=== PATIENT | male | born 1945 | race Caucasian/White ===

== ENCOUNTER 2019-10-19 10:57 | Outpatient (CLI) | payer MEDICARE, SELFPAY ==
--- NOTE | ~2019-10-19 | XR_ITS ---
EXAMINATION: XR cervical spine 4-5V DATE: 10/19/2019 11:19 INDICATION: Cervical radiculopathy. TECHNIQUE: 4 views of cervical spine were obtained. COMPARISON: None. FINDINGS: There is 5 degrees dextrocurvature of cervical spine. There is 2 mm retrolisthesis of C6 on C7. There is kyphosis of cervical spine. Vertebral body heights are normal. There is mildly decrease d disc height at C4-C5, moderately decreased disc height at C5-6, and severely decreased disc height at C6-C7. There is multilevel facet joint osteoarthritis, severe on the right at C3-C4 and C5-C6 and on the left at C4-C5. There is multilevel uncovertebral joint osteoarthritis, severe bilaterally at C 5-C6 on the left at C6-C7. There is developmental osseous central canal stenosis from C2 to C6. No pr evertebral soft tissue swelling. IMPRESSION: 1. Severe cervical spondylosis. Reviewed, dictated and finalized at location A.
--- NOTE | ~2019-10-19 | XR_ITS ---
EXAMINATION: XR shoulder RT min 2V DATE: 10/19/2019 11:19 INDICATION: Right shoulder pain. TECHNIQUE: 4 views of right shoulder were obtained. COMPARISON: None. FINDINGS: Bone alignment is normal. No fracture. There is mild osteoarthritis of glenohumeral joint a nd moderate osteoarthritis of the acromioclavicular joint. Median sternotomy wires and mediastinal tran rgical clips are seen, likely from prior coronary artery bypass grafting. IMPRESSION: 1. Polyarticular osteoarthritis. Reviewed, dictated and finalized at location A.
== END 2019-10-19 10:58 | disposition home or self-care (01) ==
LOC: ANHIMG 11:02
PROVIDERS: PCP Internal Medicine; Visit Provider Physician Assistant
DX: M54.12 Radiculopathy, cervical region (principal); M25.511 Pain in right shoulder
CPT/HCPCS: 72050; 73030

== ENCOUNTER 2019-10-26 17:42 | Outpatient (CLI) | payer MEDICARE, SELFPAY ==
--- NOTE | ~2019-10-26 | XR_ITS ---
EXAMINATION: XR wrist RT min 3V INDICATION: Right wrist pain TECHNIQUE: Four views of the right wrist are obtained. COMPARISON: None available FINDINGS: There is no fracture, dislocation, or subluxation. Advanced osteoarthritis is noted at the first carpometacarpal joint. Calcified atherosclerosis is noted. IMPRESSION: 1. No acute osseous abnormality. Reviewed, dictated and finalized at location A.
--- NOTE | ~2019-10-26 | XR_ITS ---
EXAMINATION: XR forearm RT 2V INDICATION: Right forearm pain TECHNIQUE: Two views of the right forearm are obtained. COMPARISON: None available FINDINGS: There is no fracture, dislocation, or subluxation. There appears to be dorsal soft tissue s welling overlying the mid forearm. Bone alignment at the wrist and elbow is normal. Osteoarthritis is noted at the first carpometacarpal joint. IMPRESSION: 1. No acute osseous abnormality. Reviewed, dictated and finalized at location A.
--- NOTE | ~2019-10-26 | XR_ITS ---
EXAMINATION: XR hand RT min 3V INDICATION: Right hand swelling TECHNIQUE: Three views of the right hand are obtained. COMPARISON: None available FINDINGS: There is advanced osteoarthritis at the first carpometacarpal joint. Moderate osteoarthriti s is noted at the first through third metacarpophalangeal joints. There is mild osteoarthritis at the fourth metacarpophalangeal joint as well as in multiple interphalangeal joints. No fracture is ident ified. Calcified atherosclerosis is noted. IMPRESSION: 1. Polyarticular osteoarthritis without acute abnormality. Reviewed, dictated and finalized at location A.
== END 2019-10-26 17:43 | disposition home or self-care (01) ==
PROVIDERS: PCP Internal Medicine; Visit Provider Nurse Practitioner Family
DX: M25.531 Pain in right wrist (principal); R22.31 Localized swelling, mass and lump, right upper limb; M79.641 Pain in right hand; M19.041 Primary osteoarthritis, right hand
CPT/HCPCS: 73090; 73110; 73130

== ENCOUNTER → 2019-12-15 10:49 | Outpatient (CLI) | payer MEDICARE, SELFPAY ==
--- NOTE | ~2019-12-15 | MR_ITS ---
EXAMINATION: MR wrist RT wo con DATE: 12/15/2019 11:56 INDICATION: Right wrist pain TECHNIQUE: Magnetic resonance imaging (MRI) of the right wrist was performed without intravenous cont rast. Sequences performed include axial PD-weighted FSE and PD-weighted FS FSE, coronal PD-weighted F S FSE and T1-weighted SE, and sagittal PD-weighted FS FSE and PD-weighted FSE. COMPARISON: None FINDINGS: Intrinsic ligaments: There are tears of the dorsal and central membranous components of the scapholunate ligament. The vol ar component. Intermittent grossly intact. The lunotriquetral ligament appears intact. Triangular fibrocartilage complex (TFCC): Tear of the ulnar styloid attachment of the triangular fibrocartilage complex with partial tears of t he central articular cartilaginous disc as well as the foveal attachment and volar radioulnar ligamen t. The dorsal radioulnar ligament and ulnar triquetral ligaments are intact. Extensor wrist: Mild tendinopathy and longitudinal split tear of the extensor carpi ulnaris tendon centered at the le faraz of the ulnar styloid process. The remaining extensor tendons of the wrist are normal. No tenosyno vitis. Flexor wrist: The flexor tendons of the wrist are normal. No abnormality in the carpal tunnel with normal median n erve. Guyon's canal: Guyon's canal including the ulnar nerve and artery are normal. Bones/other: There is slight dorsal subluxation of the head of the ulna relative to the sigmoid notch of the dista l radius. Polyarticular osteoarthritis. This is severe at the radiolunate articulation of the wrist j oint with large degenerative subarticular cyst along the volar side of the lunate fossa. There is als o moderate osteoarthritis at the lunocapitate and scaphoid capitate articulations of the midcarpal kristine int with mild subarticular edema and cystic change. Severe osteoarthritis at the first carpometacarpa l joint. Mild osteoarthritis at the radioscaphoid articulation of the wrist, distal radioulnar and tr iscaphe joints. No fracture or pathologic marrow replacing process. Small joint effusion with synovit is at the distal radioulnar joint. IMPRESSION: 1. Partial tear of the scapholunate ligament with likely developing slack wrist with atypical pattern of severe osteoarthritis at the radioscaphoid articulation of the wrist joint and with moderate oste oarthritis of the midcarpal joint. 2. Tears of several components of the triangular fiber cartilage complex is detailed above. 3. Mild tendinopathy and longitudinal split tearing of the extensor carpi ulnaris. 4. Severe osteoarthritis at the first carpometacarpal joint. Reviewed, dictated and finalized at location A. IMPRESSION: 1. Partial tear of the scapholunate ligament with likely developing slack wrist with atypical pattern of severe osteoarthritis at the radioscaphoid articulati on of the wrist joint and with moderate osteoarthritis of the midcarpal joint. 2. Tears of several components of the triangular fiber cartilage complex is det rell above. 3. Mild tendinopathy and longitudinal split tearing of the extensor carpi ulnar is. 4. Severe osteoarthritis at the first carpometacarpal joint.
== END ==
PROVIDERS: PCP Internal Medicine; Visit Provider Nurse Practitioner Family
DX: M25.531 Pain in right wrist (principal); S63.591A Other specified sprain of right wrist, initial encounter; M19.031 Primary osteoarthritis, right wrist
CPT/HCPCS: 73221

== ENCOUNTER 2020-03-25 06:55 | Outpatient (NON) | payer MEDICARE, SELFPAY ==
[2020-03-25 13:54] LABS: Influenza Control Positive
[2020-03-25 20:58] LABS: SARS-CoV-2 RNA PCR Negative
== END 2020-03-25 06:56 ==
LOC: ANHCOVIDDT 07:13
PROVIDERS: PCP Internal Medicine; Visit Provider Internal Medicine
DX: J02.9 Acute pharyngitis, unspecified (principal); B34.9 Viral infection, unspecified; Z20.828 Contact with and (suspected) exposure to other viral communicable diseases
CPT/HCPCS: 87635; 87804; C9803; U0003

== ENCOUNTER 2020-12-16 11:02 | Outpatient (CLI) | payer MEDICARE, SELFPAY ==
--- NOTE | 2020-12-16 11:17 | ECG_ITS ---
Measurements Intervals Blanket Rate: 74 P: 45 [place]: 188 QRS: -39 QRSD: 142 T: 68 QT: 406 QTc: 453 Interpretive Statements SINUS RHYTHM LEFT AXIS DEVIATION LEFT BUNDLE BRANCH BLOCK BASELINE WANDER- V3 ABNORMAL ECG Electronically Signed On 12-16-2020 11:49:49 CDT by Angel Mejia D.O.
[2020-12-16 11:56] LABS: Basophils Percent Auto 0.5 % (0.2-1.2); Eosinophils Absolute Auto 0.5 K/mm3 (0-0.3); Hematocrit 35.4 % (42.0-52.0); Hemoglobin 11.4 g/dL (14.0-18.0); Immature Granulocyte Absolute 0.02 K/mm3 (0.00-0.031); Immature Granulocyte Percent A 0.3 % (0-0.5); Lymphocytes Percent Auto 31.3 % (18.3-44.2); Mean Corpuscular HGB Conc 32.2 g/dl (32-36); Mean Corpuscular Hemoglobin 30.3 pg (26-34); Mean Corpuscular Volume 94.1 fl (80-100); Mean Platelet Volume 10.2 fl (7.4-10.4); Monocytes Absolute Auto 0.6 K/mm3 (0.1-0.6); Monocytes Percent Auto 9.5 % (2.6-8.5); Neutrophils Absolute Auto 2.9 K/mm3 (1.3-6.7); Neutrophils Percent Auto 50.4 % (45.5-73.1); Platelet Count Result 166 k/mm3 (150-375); Red Blood Count 3.76 M/mm3 (4.6-6.20); Red Cell Distribution Width 14.2 % (11.5-14.5); White Blood Count 5.8 K/mm3 (4.5-10.0)
[2020-12-16 12:12] LABS: Anion Gap 5 mmol/L (8-16); Blood Urea Nitrogen 36 mg/dL (9-20); Calcium 9.5 mg/dL (8.4-10.2); Carbon Dioxide 26 mmol/L (22-30); Chloride 104 mmol/L (98-107); Estimated Glomerular Filt Rate 35; Glucose 248 mg/dL (65-110); Potassium 4.7 mmol/L (3.4-5.0); Sodium 135 mmol/L (137-145)
[2020-12-16 12:18] LABS: INR 0.9; Prothrombin Time 11.7 Seconds (11.1-14.7)
[2020-12-16 12:19] LABS: Partial Thromboplastin Time 24.6 SECONDS (22.3-36.8)
== END 2020-12-16 11:03 | disposition home or self-care (01) ==
PROVIDERS: PCP Internal Medicine; Visit Provider Urology
DX: Z01.818 Encounter for other preprocedural examination (principal); D49.4 Neoplasm of unspecified behavior of bladder; I10 Essential (primary) hypertension
CPT/HCPCS: 36415; 80048; 82948; 85014; 85018; 85025; 85610; 85730; 87086; 88305; 93005; A9270; J0690; J1815; J2405; J2704; J3010; J7120

== ENCOUNTER 2020-12-24 01:04 | Day surgery (SDC) | payer MEDICARE, SELFPAY ==
[2020-12-12 09:40] VITALS: BMI 36.6
--- NOTE | 2020-12-23 13:36 | WPDANESEPPF ---
Anes - Initial Pre Proc Eval Procedure: Operation Date: 12/24/20 11:30 Proposed Procedures p Trans Urethral Resection Bladder Tumor - Ramón Morales MD Date/Time: 12/23/20 13:36 Surgeon: Ramón Morales MD Pre Op Diagnosis: bladder nodule Patient Data Age: 75 Gender: M Height: 1.78 m Weight: 116 kg Allergies Allergy/AdvReac Type Severity Reaction Status Date / Time codeine AdvReac Intermediate Itching Verified 12/24/20 09:37 tramadol AdvReac Mild Nausea And Verified 12/24/20 09:37 Vomiting Home Medications Medication Instructions Recorded Confirmed Type amlodipine 5 mg tablet 5 mg PO QAM 04/14/19 12/24/20 History aspirin 81 mg tablet,delayed 81 mg PO DAILY 04/14/19 12/24/20 History release furosemide 40 mg tablet 40 mg PO BID 04/14/19 12/24/20 History lisinopril 20 mg tablet 20 mg PO QAM 04/14/19 12/24/20 History metformin 1,000 mg tablet 1,000 mg PO BID 04/14/19 12/24/20 History metoprolol succinate 25 mg 25 mg PO BID 04/14/19 12/24/20 History tablet,extended release 24 hr rosuvastatin 10 mg tablet 10 mg PO DAILY 04/14/19 12/24/20 History multivitamin 1 tablet PO DAILY 06/28/19 12/24/20 History spironolactone 25 mg tablet 25 mg PO QAM 01/15/20 12/24/20 History terazosin 10 mg capsule 10 mg PO DAILY #90 cap 06/09/20 12/24/20 Rx finasteride 5 mg tablet 5 mg PO DAILY #90 tablet 06/21/20 12/24/20 Rx allopurinol 300 mg tablet 300 mg PO DAILY #90 tablet 11/29/20 12/24/20 Rx omeprazole 20 mg capsule,delayed 20 mg PO DAILY #90 cap 11/29/20 12/24/20 Rx release alpha lipoic acid 600 mg PO DAILY 12/12/20 12/24/20 History gabapentin 300 mg PO QID 12/12/20 12/24/20 History hydralazine 50 mg PO BID 12/12/20 12/24/20 History insulin asp prt-insulin aspart See Rx Instructions .ROUTE .COMPLEX 12/12/20 12/24/20 History [Novolog Mix 70-30FlexPen U-100] Patient hx anesthesia problems: none Family hx anesthesia problems: [facility] Past Medical History Medical History (Updated 12/23/20 @ 13:38 by Tulio Ortiz MD) Arthritis BPH (benign prostatic hyperplasia) CAD (coronary artery disease) CHF (congestive heart failure) Chronic GERD Diabetes HTN (hypertension) Hypercholesterolemia Hyperlipidemia Obesity MARY (obstructive sleep apnea) MARY on CPAP Type 2 diabetes mellitus Surgical History Surgical History (Updated 12/23/20 @ 13:38 by Tulio Ortiz MD) S/P AVR S/P CABG (coronary artery bypass graft) Family History Family History Mother Patient's mother is Family history of heart disease in male family member before age 55 Father Patient's father is Social History Social History Smoking packs per day: 3.5 Smoking cigarettes per day: 70.0 Years smoked: 15 Smoking pack-years: 52.50 Smoking status: Former smoker Second hand tobacco smoke exposure: No Smoking end date: 10/31/85 Alcohol intake: current Drinks per week: 3 Substance use: never Living arrangements: with family Additional living arrangements comments: Spiritual care concerns: No Anes - Eval Final PreProcedure Day of Procedure 12/23/20 13:36 Patient weight: obese Heart: regular rate and rhythm Lungs: clear to auscultation and normal air movement Airway: Mallampati scale class II Neurological: alert and oriented Last oral intake: >/= 8 hours ASA classification: IV Emergent: no Anesthetic plan: proceed Anesthesia type and monitoring: general LMA Informed Consent: The patient's anesthetic plan and its attendant risks and benefits were discussed with the patient/family/POA. Questions were solicited and answers provided to the satisfaction of the patient/family/POA.
[2020-12-24] VITALS (18 sets, daily range): BP systolic 107–163; BP diastolic 55–85; PULSE 73–85; RESP 10–24; TEMP 36–36.7; O2SAT 95–100; BMI 39.0
--- NOTE | 2020-12-24 07:34 | SUR.PREOP ---
0720-DR. BELTRAN AWARE HIS OFFICE REQUESTS CLEARANCE FOR PT AND CLEARANCE NOT YET RECEIVED, OFFICE INFORMED YESTERDAY CLEARANCE NOT RECEIVED, DR. BELTRAN STATES CLEARANCE NOT NEEDED AND MAY PROCEED WITH SURGERY TODAY WITHOUT CLEARANCE.
[2020-12-24] MEDS: LACTATED RINGERS 1,000 ML 30 ML IV CONT (10:10)
[2020-12-24 10:17] LABS: Glucose Point of Care 302 mg/dl (65-105)
--- NOTE | 2020-12-24 12:22 | SUR.PREOP ---
1210-PT AND AWARE SURGEON DELAYS SELF ADDITIONAL 1 HOUR.
--- NOTE | 2020-12-24 13:09 | WPDHPUPDATE1 ---
History and Physical Update Update Date/Time: 12/24/20 13:09 History and Physical has been reviewed, including an updated exam of the patient. There are NO changes in the patient's condition. Risks, benefits, and alternatives have been discussed and questions answered. Patient agrees to proceed with procedure.
[2020-12-24] MEDS: ceFAZolin 2 GM/D5W 50 ML 2 GM/50 ML BAG IVPB (13:30)
[2020-12-24] MEDS: LIDOCAINE HCL 2% GEL UROJET 10 ML PKG MUCOUS MEM (13:49)
--- NOTE | 2020-12-24 14:13 | P.OP_ITS ---
Procedure Note - Detailed Date of Procedure 12/24/20 Pre-op Diagnosis bladder tumor 1.5 cm, bph Post-op Diagnosis same Procedure Performed TURBT 1.5 cm medium tumor, transurethral resection of prostate Surgeon Ramón Morales MD Anesthesia general Description of Procedure Patient is taken the operative suite correctly identified. Once anesthesia was obtained was placed in dorsal lithotomy position and prepped draped usual sterile fashion. Twenty-four [place] resectoscope sheath inserted the bladder. He has an extremely high ridge to get into the bladder. Took quite a bit of torquing. Patient does have quite a bit of lower urinary tract symptoms associated with this in addition. In order to adequately resected tumor we required resection of the prostate. We went ahead and resected the lobes laterally from the bladder neck to the verumontanum. This was done bilaterally as well as the floor of the bladder. Hemostasis was achieved using electrocautery. Len resected the bladder tumor and sent this as a separate specimen. The base was fulgurated. 2% viscous lidocaine was inserted urethra and a [address] was placed with 15 cc in balloon. This was connected continuous bladder irrigation. He will be admitted overnight for CBI. Hopefully discharge home in the morning and have the catheter removed on Wednesday. Drains Yes Packing No Pathology yes Complications No immediate complications Condition stable Disposition PACU
[2020-12-24 14:26] LABS: Glucose Point of Care 270 mg/dl (65-105)
[2020-12-24] MEDS: INSULIN HUMAN REGULAR (*BKC) 100 UNITS/ML SUB-Q (14:45)
[2020-12-24] MEDS: fentaNYL CITRATE INJ (*CRX) 100 MCG/2 ML VIAL 25 MCG IV PUSH (16:30)
--- NOTE | 2020-12-24 17:08 | PC.NURSE ---
This patient, Gabriel Celeste, was admitted to Medical Room 250-01. Patient/family oriented to hospital policies and general routines including ID bracelet, bed and alarms, visiting hours, pain management, procedures, bathroom and other care routines, personal items, smoking policy, room service/diet, and visiting hours. Information on how to activate the Rapid Response Team has been discussed. Patient/Family are encouraged to report perceived risks to care and to ask questions if they do not understand what they are told or what they should do.
[2020-12-24] MEDS: metFORMIN HCL 500 MG TABLET 1000 MG PO (18:01)
[2020-12-24] MEDS: hydrALAZINE HCL 50 MG TABLET PO (18:02)
[2020-12-24] MEDS: FUROSEMIDE 40 MG TABLET PO (18:02)
[2020-12-24] MEDS: DOCUSATE SODIUM 100 MG CAPSULE PO (18:02)
[2020-12-24] MEDS: GABAPENTIN 300 MG CAPSULE PO ×2 (18:02→20:44)
[2020-12-24] MEDS: HYDROcodone/acetaminophen (*CRX) 5-325 MG TABLET 1 TAB PO ×2 (18:04→22:16)
[2020-12-24] MEDS: METOPROLOL SUCCINATE EXT REL 25 MG TABCR PO (20:44)
[2020-12-24 20:53] LABS: Glucose Point of Care 305 mg/dl (65-105)
[2020-12-24] MEDS: HYOSCYAMINE SULFATE 0.125 MG TABLET 0.25 MG PO (22:19)
[2020-12-25] MEDS: HYDROcodone/acetaminophen (*CRX) 5-325 MG TABLET 1 TAB PO ×3 (03:15→14:38)
[2020-12-25] MEDS: HYOSCYAMINE SULFATE 0.125 MG TABLET SUBLINGUAL ×2 (03:16→10:31)
[2020-12-25 05:28] LABS: Hematocrit 33.7 % (42.0-52.0); Hemoglobin 11.1 g/dL (14.0-18.0)
[2020-12-25 05:43] LABS: Anion Gap 9 mmol/L (8-16); Blood Urea Nitrogen 34 mg/dL (9-20); Calcium 8.9 mg/dL (8.4-10.2); Carbon Dioxide 24 mmol/L (22-30); Chloride 99 mmol/L (98-107); Estimated CRCL calculation 41 ml/min; Estimated Glomerular Filt Rate 39; Glucose 294 mg/dL (65-110); Potassium 4.9 mmol/L (3.4-5.0); Sodium 132 mmol/L (137-145)
[2020-12-25 06:00] VITALS: BP 136/68; PULSE 72; RESP 17; TEMP 36.2; O2SAT 97
--- NOTE | 2020-12-25 07:57 | WPDUROPN2 ---
Progress Note: A&P Assessment and Plan (1) BPH (benign prostatic hyperplasia): Code(s): N40.0 - Benign prostatic hyperplasia without lower urinary tract symptoms Status: Acute Assessment and Plan: Status post TURP. Will wean CBI to off. If remains fairly clear can discharge home later today with Sheikh catheter and have it removed on Wednesday (2) Bladder tumor: Code(s): D49.4 - Neoplasm of unspecified behavior of bladder Status: Acute Assessment and Plan: Status post Transurethral resection of bladder tumor. Awaiting path. Further recommendations pending that result Subjective Subjective Date/Time Seen: 12/25/20 07:57 Post Op day: 1 (Post Transurethral resection bladder tumor and transurethral resection of prostate) Principal diagnosis: Bladder tumor and BPH Interval history: bahman is feeling well this morning. No major complaints. Urine is pink on minimal CBI. Review of Systems Review of Systems: All systems reviewed & are unremarkable except as noted in HPI and below Exam Const: General: cooperative and comfortable Resp: Effort & Inspection: normal respiratory effort GI: Inspection: normal to inspection GI Palp: Yes Soft to palpation Objective Data Vital Signs Vital Signs: Vital Signs - 24 hr 12/24/20 09:41 12/24/20 14:17 12/24/20 14:30 Temperature 36.7 C 36.4 C L Pulse Rate 81 77 79 Respiratory Rate 20 12 11 L Blood Pressure 149/66 H 116/65 134/85 Pulse Oximetry 97 99 100 12/24/20 14:45 12/24/20 15:00 12/24/20 15:15 Temperature Pulse Rate 78 76 75 Respiratory Rate 16 15 21 H Blood Pressure 107/72 127/55 L 159/71 H Pulse Oximetry 100 97 95 12/24/20 15:30 12/24/20 15:45 12/24/20 16:00 Temperature 36.4 C L Pulse Rate 76 81 77 Respiratory Rate 14 24 H 15 Blood Pressure 145/70 H 143/74 H 144/83 H Pulse Oximetry 95 97 97 12/24/20 16:15 12/24/20 16:30 12/24/20 17:05 Temperature 36.1 C L Pulse Rate 74 73 78 Respiratory Rate 10 L 16 12 Blood Pressure 154/74 H 147/65 H 139/60 Pulse Oximetry 96 98 99 12/24/20 17:20 12/24/20 18:32 12/24/20 19:33 Temperature 36.0 C L 36.5 C 36.3 C L Pulse Rate 75 74 80 Respiratory Rate 12 14 16 Blood Pressure 163/78 H 159/77 H 134/57 L Pulse Oximetry 100 98 96 12/24/20 20:00 12/24/20 20:44 12/24/20 23:00 Temperature 36.4 C L Pulse Rate 74 74 85 Respiratory Rate 16 16 Blood Pressure 153/68 H Pulse Oximetry 96 95 12/25/20 06:00 Temperature 36.2 C L Pulse Rate 72 Respiratory Rate 17 Blood Pressure 136/68 Pulse Oximetry 97 Intake/Output Intake/Output: Intake & Output 12/22/20 12/23/20 12/24/20 12/25/20 23:59 23:59 23:59 23:59 Intake Total 1037 Output Total 450 250 Balance 587 -250 Meds/Results Medications: Active Medications Generic Name Dose Route Start Last Admin Trade Name Freq PRN Reason Stop Dose Admin Hydrocodone Bitart/Acetaminophen 1 tab 12/24/20 16:35 12/25/20 03:15 Hydrocodone/Acetaminophen (*Crx) 5-325 Mg Tablet PO 1 tab Q4H PRN Administration Pain Rated 1-6 Amlodipine Besylate 5 mg 12/25/20 09:00 Amlodipine Besylate 5 Mg Tablet PO QAM CHAYITO Cephalexin HCl 500 mg 12/25/20 13:00 Cephalexin 500 Mg Capsule PO QID CHAYITO Docusate Sodium 100 mg 12/24/20 17:00 12/24/20 18:02 Docusate Sodium 100 Mg Capsule PO 100 mg BID CHAYITO Administration Furosemide 40 mg 12/24/20 17:00 12/24/20 18:02 Furosemide 40 Mg Tablet PO 40 mg BID CHAYITO Administration Gabapentin 300 mg 12/24/20 17:00 12/24/20 20:44 Gabapentin 300 Mg Capsule PO 300 mg QID CHAYITO Administration Hydralazine HCl 50 mg 12/24/20 17:00 12/24/20 18:02 Hydralazine Hcl 50 Mg Tablet PO 50 mg BIDWM CHAYITO Administration Hyoscyamine 0.125 mg 12/24/20 16:35 12/25/20 03:16 Hyoscyamine Sulfate 0.125 Mg Tablet SUBLINGUAL 0.125 mg Q6H PRN Administration Bladder Spasm Lisinopril 20 mg 12/25/20 09:00 Lisinopril 20 Mg Tabl
[2020-12-25 08:11] LABS: Glucose Point of Care 252 mg/dl (65-105)
[2020-12-25] MEDS: metFORMIN HCL 500 MG TABLET 1000 MG PO (08:18)
[2020-12-25] MEDS: METOPROLOL SUCCINATE EXT REL 25 MG TABCR PO (08:18)
[2020-12-25] MEDS: DOCUSATE SODIUM 100 MG CAPSULE PO (08:18)
[2020-12-25] MEDS: amLODIPine BESYLATE 5 MG TABLET PO (08:18)
[2020-12-25] MEDS: GABAPENTIN 300 MG CAPSULE PO ×2 (08:18→13:13)
[2020-12-25] MEDS: hydrALAZINE HCL 50 MG TABLET PO (08:18)
[2020-12-25] MEDS: SPIRONOLACTONE 25 MG TABLET PO (08:18)
[2020-12-25] MEDS: PANTOPRAZOLE 40 MG TABLET PO (08:18)
[2020-12-25] MEDS: lisinopriL 20 MG TABLET PO (08:19)
[2020-12-25] MEDS: FUROSEMIDE 40 MG TABLET PO (08:19)
[2020-12-25] MEDS: ROSUVASTATIN 10 MG TABLET PO (08:19)
[2020-12-25] MEDS: TERAZOSIN HCL 5 MG CAPSULE 10 MG PO (08:19)
[2020-12-25 11:53] LABS: Glucose Point of Care 292 mg/dl (65-105)
--- NOTE | 2020-12-25 13:07 | WPDANESPN ---
Anes - Prog Note Post-Op Date/Time: 12/25/20 13:07 Cardiovascular status: normal Respiratory status: normal Airway patency: baseline Mental status: baseline Post-Op hydration status: normal Vital Signs: Last Vital Signs Temp 97.2 F L 12/25/20 06:00 Pulse 72 12/25/20 06:00 Resp 17 12/25/20 06:00 BP 136/68 12/25/20 06:00 Pulse Ox 97 12/25/20 06:00 Pain Score (VAS): 2/10 I/O: Intake & Output 12/24/20 12/25/20 12/25/20 23:59 07:59 15:59 Intake Total 987 480 Output Total 450 250 Balance 537 -250 480 Laboratory Tests 12/25/20 04:59 12/25/20 04:59 12/24/20 12/24/20 12/25/20 14:24 20:43 04:59 Hgb 11.1 L Hct 33.7 L Sodium Potassium Chloride Carbon Dioxide Anion Gap BUN Creatinine Estim Creat Clear Calc Estimated GFR Glucose POC Capillary Glucose 270 H 305 H Calcium 12/25/20 12/25/20 12/25/20 04:59 07:57 11:42 Hgb Hct Sodium 132 L Potassium 4.9 Chloride 99 Carbon Dioxide 24 Anion Gap 9 BUN 34 H Creatinine 1.70 H Estim Creat Clear Calc 41 Estimated GFR 39 L Glucose 294 H POC Capillary Glucose 252 H 292 H Calcium 8.9 Patient Feedback: Patient satisfied with anesthetic care.
[2020-12-25] MEDS: CEPHALEXIN 500 MG CAPSULE PO (13:13)
[2020-12-25 14:00] VITALS: BP 128/66; PULSE 84; RESP 12; TEMP 38.1; O2SAT 95
[2020-12-25 15:33] VITALS: TEMP 36.9
== END 2020-12-25 15:47 | disposition home or self-care (01) ==
LOC: ANHSURGERY 09:22 → ANH2MED 16:41
PROVIDERS: PCP Internal Medicine; Visit Provider Urology
PROC: 0TBB8ZZ Excision of Bladder, Via Natural or Artificial Opening Endoscopic (ICD-10-PCS; CPT 52601; principal; 2020-12-24 11:30)
DX: C67.9 Malignant neoplasm of bladder, unspecified (principal); N40.1 Benign prostatic hyperplasia with lower urinary tract symptoms; R35.0 Frequency of micturition; R39.12 Poor urinary stream; E11.9 Type 2 diabetes mellitus without complications; Z79.4 Long term (current) use of insulin; I11.0 Hypertensive heart disease with heart failure; I50.9 Heart failure, unspecified; I25.10 Atherosclerotic heart disease of native coronary artery without angina pectoris; K21.9 Gastro-esophageal reflux disease without esophagitis; E78.00 Pure hypercholesterolemia, unspecified; E78.5 Hyperlipidemia, unspecified; G47.33 Obstructive sleep apnea (adult) (pediatric); E66.9 Obesity, unspecified; Z68.36 Body mass index [BMI] 36.0-36.9, adult; Z87.891 Personal history of nicotine dependence; Z79.899 Other long term (current) drug therapy; Z95.1 Presence of aortocoronary bypass graft; Z95.2 Presence of prosthetic heart valve
CPT/HCPCS: 52601; 52235; 36415; 80048; 82948; 85014; 85018; 85025; 85610; 85730; 87086; 88305; 93005; A9270; J0690; J1815; J2405; J2704; J3010; J7120

== ENCOUNTER → 2021-05-21 01:28 | Outpatient (CLI) | payer MEDICARE, SELFPAY ==
[2021-05-21 21:11] LABS: SARS-CoV-2 RNA PCR Positive
== END ==
PROVIDERS: PCP Internal Medicine; Visit Provider Internal Medicine
DX: U07.1 COVID-19 (principal); B34.9 Viral infection, unspecified
CPT/HCPCS: C9803; U0003; U0005

== ENCOUNTER 2021-07-17 11:30 | Outpatient (CLI) | payer MEDICARE, SELFPAY ==
--- NOTE | ~2021-07-17 | CT_ITS ---
EXAMINATION: CT brain wo con DATE: 07/17/2021 12:04 INDICATION: Sudden onset of imbalance. TECHNIQUE: Computed tomography (CT) of the head was performed without intravenous contrast. The mA wa s adjusted according to patient size. Iterative reconstruction technique was employed. The dose-lengt h product was 605.33 mGy-cm. COMPARISON: None FINDINGS: There are scattered areas of low attenuation in the cerebral white matter. There is no intr acranial hemorrhage, acute infarction, or abnormal intracranial mass lesion. The ventricles are ebenezer l in size. There are likely changes of right ocular lens replacement surgery. There is injected hyper dense material in left ocular globe. There are choroidal calcifications in left ocular globe. The mas toid air cells are normal. IMPRESSION: 1. Moderate nonspecific cerebral white matter disease, which likely represents chronic small vessel i schemic disease. Reviewed, dictated and finalized at location A. IMPRESSION: 1. Moderate nonspecific cerebral white matter disease, which likely represents chronic small vessel ischemic disease.
[2021-07-17 12:02] LABS: Anion Gap 10 mmol/L (8-16); Blood Urea Nitrogen 27 mg/dL (9-20); Calcium 9.1 mg/dL (8.4-10.2); Carbon Dioxide 28 mmol/L (22-30); Chloride 104 mmol/L (98-107); Estimated Glomerular Filt Rate 39; Glucose 195 mg/dL (65-110); Sodium 142 mmol/L (137-145)
== END 2021-07-17 11:31 | disposition home or self-care (01) ==
PROVIDERS: PCP Internal Medicine; Visit Provider Nurse Practitioner Adult Health
DX: I50.32 Chronic diastolic (congestive) heart failure (principal); R26.89 Other abnormalities of gait and mobility
CPT/HCPCS: 36415; 70450; 80048

== ENCOUNTER 2021-07-30 01:57 | Day surgery (SDC) | payer MEDICARE, SELFPAY ==
--- NOTE | 2021-07-30 10:28 | WPDANESEPPF ---
Anes - Initial Pre Proc Eval Procedure: Operation Date: 07/30/21 14:00 Proposed Procedures p Trans Esophageal Echo - Aguila Chris MD Date/Time: 07/30/21 10:28 Surgeon: Aguila Chris MD Pre Op Diagnosis: LV enlargement and dysfunction Patient Data Age: 75 Gender: M Height: Weight: Allergies Allergy/AdvReac Type Severity Reaction Status Date / Time codeine AdvReac Intermediate Itching Verified 07/30/21 13:02 tramadol AdvReac Mild Nausea And Verified 07/30/21 13:02 Vomiting Home Medications Medication Instructions Recorded Confirmed Type amlodipine 5 mg tablet 5 mg PO QAM 04/14/19 07/29/21 History aspirin 81 mg tablet,delayed 81 mg PO DAILY 04/14/19 07/29/21 History release rosuvastatin 10 mg tablet 10 mg PO DAILY 04/14/19 07/29/21 History multivitamin 1 tablet PO DAILY 06/28/19 07/29/21 History alpha lipoic acid 600 mg PO DAILY 12/12/20 07/29/21 History hydralazine 50 mg PO TID 12/12/20 07/29/21 History insulin asp prt-insulin aspart See Rx Instructions .ROUTE .COMPLEX 12/12/20 07/29/21 History [Novolog Mix 70-30FlexPen U-100] hydrocodone-acetaminophen 1 tablet PO Q8H PRN #20 tablet 12/25/20 07/29/21 Rx lisinopril 20 mg tablet 20 mg PO BID tablet 02/04/21 07/29/21 History terazosin 10 mg capsule 10 mg PO DAILY #90 cap 04/02/21 07/29/21 Rx allopurinol 300 mg tablet 300 mg PO DAILY #90 tablet 04/14/21 07/29/21 Rx finasteride 5 mg tablet 5 mg PO DAILY #90 tablet 04/29/21 07/29/21 Rx omeprazole 20 mg capsule,delayed 20 mg PO DAILY #90 cap 05/12/21 07/29/21 Rx release bumetanide 2 mg PO BID 07/29/21 07/29/21 History cholecalciferol (vitamin D3) 10 mcg PO DAILY 07/29/21 07/29/21 History nebivolol 5 mg PO DAILY 07/29/21 07/29/21 History nitroglycerin 1 spray SUBLINGUAL Q5MIN 07/29/21 07/29/21 History Patient hx anesthesia problems: none Family hx anesthesia problems: none Results Review: All pre-operative results and documents have been reviewed as part of the pre-operative evaluation. [facility] Past Medical History Medical History Arthritis BPH (benign prostatic hyperplasia) CAD (coronary artery disease) CHF (congestive heart failure) Chronic GERD Diabetes HTN (hypertension) Hypercholesterolemia Hyperlipidemia Obesity MARY (obstructive sleep apnea) MARY on CPAP Type 2 diabetes mellitus Surgical History Surgical History S/P AVR S/P CABG (coronary artery bypass graft) Family History Family History Mother Family history of heart disease in male family member before age 55 Patient's mother is Acute myocardial infarction Diabetes mellitus Father Patient's father is Sibling Diabetes mellitus Sibling Hypertension Social History Social History Smoking packs per day: 4 Smoking cigarettes per day: 80.0 Years smoked: 30 Smoking pack-years: 120.00 Smoking status: Former smoker Tobacco type: cigarettes Second hand tobacco smoke exposure: No Smoking end date: 10/31/85 Alcohol intake: never Drinks per week: 3 Substance use: never Substance use type: does not use Additional living arrangements comments: Gender identity (if verbalized by the patient): Male Spiritual care concerns: No Anes - Eval Final PreProcedure Day of Procedure 07/30/21 10:28 Patient weight: obese Heart: regular rate and rhythm Lungs: clear to auscultation and normal air movement Airway: Mallampati scale class II Neurological: alert and oriented Last oral intake: >/= 8 hours ASA classification: IV Emergent: no Anesthetic plan: proceed Anesthesia type and monitoring: general GIVS Results Review: All pre-operative results and documents have been reviewed as part of the pre-operative evaluation. Informed Cons
[2021-07-30 13:16] VITALS: BP 181/87; PULSE 70; RESP 17; TEMP 36.1; O2SAT 99
--- NOTE | 2021-07-30 14:22 | SUR.OPER ---
Procedure performed with anesthesia providing sedation. Probe in at 1429
[2021-07-30 14:40] VITALS: BP 142/80; PULSE 75; RESP 22; O2SAT 99
--- NOTE | 2021-07-30 14:40 | WPDHPUPDATE1 ---
History and Physical Update Update Date/Time: 07/30/21 14:40 History and Physical has been reviewed, including an updated exam of the patient. There are NO changes in the patient's condition. Risks, benefits, and alternatives have been discussed and questions answered. Patient agrees to proceed with procedure.
--- NOTE | 2021-07-30 14:41 | WPDTEECHO ---
[facility] TransEsophageal Echocardiogram Date of procedure: 07/30/21 Procedure Type: Transesophageal echocardiogram Diagnosis: CHF, cardiomyopathy, bioprosthetic aortic valve replacement Indications: CHF, cardiomyopathy, bioprosthetic aortic valve replacement Image Quality: Acceptable Findings: Brief history present illness: Patient is a pleasant 75-year-old male with past medical history significant for 2 vessel CABG with SVG to OM and SVG to PDA with 29 mm Erickson porcine valve October 2013, history of heart failure with preserved ejection fraction, diabetes mellitus, hypertension, MARY on BiPAP, obesity, hyperlipidemia, chronic kidney disease with complaints of progressive shortness of breath, lower extremity edema despite escalation in diuretic therapy which has been limited due to renal failure. He underwent 2D echocardiogram which revealed preserved function of bioprosthetic aortic valve and EF 55-60% June 2021. He was seen by Dr. Santos of [facility] who recommended transesophageal echocardiogram for further clarification the aortic valve given his ongoing symptoms suggestive of CHF. He underwent nuclear stress test which revealed normal perfusion but LV enlargement and decline in EF at 42%. Patient was subsequently referred for transesophageal echocardiogram to further clarify valve pathology. Procedure in detail: After verbal and written informed consent was obtained the patient risks, benefits, and alternatives explained in detail the patient agreed to proceed with the plan of care as outlined above. The patient was evaluated at bedside in the [facility] procedure room. The posterior oropharynx, neck, and jaw angle all within normal limits on examination. Lungs were clear to auscultation. See pre-sedation note for further details The patient was then placed in the appropriate 30 to 45 degree angle supine position at a slight left lateral decubitus position. Patient was monitored throughout the study with telemetry, oxygen saturation, end-tidal CO2 monitoring, blood pressure, heart rate, and respirations. The posterior hypopharynx was then locally anesthetized using repeated administration of Hurricaine spray as well as gargled viscous lidocaine. After local anesthetic of the posterior hypopharynx was achieved and the oral bite block placed, moderate sedation was administered. After confirmation of adequate moderate sedation, the transesophageal echocardiogram probe was advanced through the oral bite block into the posterior hypopharynx and into the esophagus easily and without complication. Multiple, multiplanar echocardiographic images were obtained in multiple standard re- projections. Pulsed wave, continuous-wave, and color-flow Doppler were utilized in conjunction with this study. At the conclusion of the study, the transesophageal echocardiogram probe was removed easily and without complication. The patient tolerated the procedure well without difficulty. Patient was in sinus rhythm throughout the study. Moderate Sedation/Anesthesia administration: Patient reports no prior problems with sedation/anesthesia. Please see Anesthesiology documentation for protocol and sedation administration. FINDINGS: LEFT VENTRICLE: Mild left ventricular enlargement and mild global LV systolic dysfunction with visually estimated ejection fraction of approximately 45-50% with paradoxical septal wall motion secondary to post pericardiotomy status. Mild concentric left ventricular hypertrophy. RIGHT VENTRICLE: Size and systolic function within normal limits. LEFT ATRIUM: Mild to moderate left atrial enlargement size. RIGHT ATRIUM: Mild right atrial enlargement. INTERATRIAL SEPTUM: Interatrial septum is anatomically normal without evidence of shunt with color-flow Doppler nor with injection of agitated saline. MITRAL VALVE: Mitral valve is anatomically normal with preserved leaflet excursion and mild regurgitation with at least 2 small separate r
[2021-07-30 14:47] VITALS: BP 151/87; PULSE 72; RESP 20; O2SAT 98
[2021-07-30 15:00] VITALS: BP 178/79; PULSE 71; RESP 22; O2SAT 96
--- NOTE | 2021-07-30 15:06 | SUR.PHASEII ---
Dr Chris speaking with pt and family
[2021-07-30 15:30] VITALS: BP 178/89; PULSE 65; RESP 20; O2SAT 100
--- NOTE | 2021-07-30 15:30 | SUR.PHASEII ---
Discharge instructions read to pt, and daughter, and given copy. Pt, daughter and states understanding.
== END 2021-07-30 15:42 | disposition home or self-care (01) ==
PROVIDERS: PCP Internal Medicine; Visit Provider Internal Medicine Cardiovascular Disease
PROC: (CPT 93312; principal; 2021-07-30 14:00)
DX: I13.0 Hypertensive heart and chronic kidney disease with heart failure and stage 1 through stage 4 chronic kidney disease, or unspecified chronic kidney disease (principal); R06.09 Other forms of dyspnea; I50.9 Heart failure, unspecified; I42.9 Cardiomyopathy, unspecified; Z95.2 Presence of prosthetic heart valve; E11.22 Type 2 diabetes mellitus with diabetic chronic kidney disease; N18.30 Chronic kidney disease, stage 3 unspecified; I25.10 Atherosclerotic heart disease of native coronary artery without angina pectoris; E78.5 Hyperlipidemia, unspecified; G47.33 Obstructive sleep apnea (adult) (pediatric); K21.9 Gastro-esophageal reflux disease without esophagitis; N40.0 Benign prostatic hyperplasia without lower urinary tract symptoms; Z79.82 Long term (current) use of aspirin; Z79.4 Long term (current) use of insulin; Z95.1 Presence of aortocoronary bypass graft; Z87.891 Personal history of nicotine dependence; E66.9 Obesity, unspecified
CPT/HCPCS: 93312; 93320; 93325; J2704

== ENCOUNTER 2021-08-13 00:45 | Day surgery (SDC) | payer MEDICARE, SELFPAY ==
[2021-08-13] VITALS (16 sets, daily range): BP systolic 141–172; BP diastolic 71–95; PULSE 60–78; RESP 12–67; TEMP 36.7–36.8; O2SAT 93–99; BMI 40.2
[2021-08-13 09:35] LABS: Basophils Percent Auto 0.5 % (0.2-1.2); Eosinophils Absolute Auto 0.3 K/mm3 (0-0.3); Eosinophils Percent Auto 4.5 % (0-4.4); Hematocrit 37.1 % (42.0-52.0); Hemoglobin 11.9 g/dL (14.0-18.0); Immature Granulocyte Absolute 0.02 K/mm3 (0.00-0.031); Immature Granulocyte Percent A 0.3 % (0-0.5); Lymphocytes Absolute Auto 2.19 K/mm3 (0.9-3.2); Lymphocytes Percent Auto 32.9 % (18.3-44.2); Mean Corpuscular HGB Conc 32.1 g/dl (32-36); Mean Corpuscular Volume 90.5 fl (80-100); Mean Platelet Volume 9.7 fl (7.4-10.4); Monocytes Absolute Auto 0.7 K/mm3 (0.1-0.6); Monocytes Percent Auto 9.9 % (2.6-8.5); Neutrophils Absolute Auto 3.5 K/mm3 (1.3-6.7); Neutrophils Percent Auto 51.9 % (45.5-73.1); Platelet Count Result 193 k/mm3 (150-375); Red Cell Distribution Width 14.4 % (11.5-14.5); White Blood Count 6.7 K/mm3 (4.5-10.0)
[2021-08-13 10:12] LABS: Anion Gap 8 mmol/L (8-16); Blood Urea Nitrogen 25 mg/dL (9-20); Carbon Dioxide 30 mmol/L (22-30); Chloride 105 mmol/L (98-107); Estimated Glomerular Filt Rate 39; Glucose 114 mg/dL (65-110); Potassium 3.7 mmol/L (3.4-5.0); Sodium 143 mmol/L (137-145)
--- NOTE | 2021-08-13 11:33 | WPDCARDPROC ---
Cardiac Cath Procedure Note Date of procedure:: 08/13/21 Performing physician:: Jose Antonio Walls MD Indication:: exertional dyspnea with known coronary and valvular heart disease Brief clinical history:: this is a 75-year-old man with aortic valve and coronary artery disease admitted for right left heart catheterization as an outpatient because of symptoms of shortness of breath of uncertain etiology. Patient has a bioprosthetic aortic valve which has been evaluated with transesophageal echocardiogram appears to be functioning properly. He does have mild LV systolic dysfunction. He also at the time of aortic valve replacement had vein grafts placed to the obtuse marginal branch of the circumflex as well as the RPDA. Stress testing did not demonstrate evidence of stress-induced ischemia. He is felt to have pulmonary hypertension by echocardiogram. For further evaluation of this and his coronary disease this procedure has been recommended Procedure Procedure performed:: right heart catheterization coronary angiography vein graft angiography Sedation/Medication given:: fentanyl 25 mg Versed 2 mg Access site:: right femoral artery right femoral vein Estimated blood loss:: 25 cc Procedure note:: patient was brought to the cardiac catheterization lab in the postabsorptive state the right femoral triangle was prepared and draped in the normal fashion. Anesthesia was provided with 1% lidocaine infiltrated locally. Using the modified Seldinger technique a 7 Cymraes vascular sheath was placed into the femoral vein and a 5 Cymraes vascular sheath into the femoral artery. Following this I used a balloon tip Grace-Eben catheter to document right-sided hemodynamics, performed thermodilution cardiac outputs and sample av O2 difference. The Grace-Eben catheter was then removed. Following this I used a 5 Cymraes FL4 catheter to engage and inject the left coronary artery in multiple projections. A 5 Cymraes JR4 catheter was used to engage and inject the right coronary artery. The same right coronary catheter was used to engage and inject the vein graft to the RCA and to the obtuse marginal. The cineangiograms were then reviewed and the case was terminated. The patient was taken to the holding area for sheath removal there were no apparent procedural complications and he left the label printer with no evidence of groin hematoma. Because of hypertension 10 mg of hydralazine IV was ordered prior to sheath removal. Findings:: Hemodynamics: Right atrial pressure is 12. Right ventricle 55 over 6 end-diastolic 14 pulmonary artery pressure 55 26 mean pulmonary wedge pressure 22, central aortic pressure 184 over 78 left ventricle was not entered during this procedure. Thermodilution cardiac output measures 7.4 giving an index of 3.2, Emir cardiac output is 7.5 liters/minute also giving index of 3.2. Aortic saturation 87.9 % pulmonary artery 64.1. The left main coronary artery is medium in caliber and nicely patent left anterior descending is a moderate to large caliber vessel extending down to around the apex. There is mild, approximately 40% ostial stenosis of the LAD. At the origin of the 1st septal perforating branch there is a high-grade stenosis of 95% followed by an area of diffuse complex appearing disease extending further distally in the artery and bridging over the diagonal branches as well. The 2nd very small diagonal branch has an ostial stenosis of approximately 80-90%. Circumflex is a moderate caliber artery with total occlusion of major obtuse marginal branch. The trunk of the circumflex is free of significant disease and the posterior branch has mild luminal plaquing but no significant disease. The right coronary artery is medium in caliber and was dominant to the posterior circulation. The right coronary artery has diffuse disease in the 2nd portion and is 100% occluded in the 3rd portion. Saphenous vein graft to the right coronary luiza
== END 2021-08-13 17:15 | disposition home or self-care (01) ==
PROVIDERS: PCP Internal Medicine; Visit Provider Specialist
DX: I25.10 Atherosclerotic heart disease of native coronary artery without angina pectoris (principal); R06.02 Shortness of breath; I27.20 Pulmonary hypertension, unspecified; I13.0 Hypertensive heart and chronic kidney disease with heart failure and stage 1 through stage 4 chronic kidney disease, or unspecified chronic kidney disease; I50.9 Heart failure, unspecified; N18.30 Chronic kidney disease, stage 3 unspecified; E11.22 Type 2 diabetes mellitus with diabetic chronic kidney disease; Z95.2 Presence of prosthetic heart valve; Z95.1 Presence of aortocoronary bypass graft; Z87.891 Personal history of nicotine dependence; Z79.82 Long term (current) use of aspirin; Z79.4 Long term (current) use of insulin
CPT/HCPCS: 36415; 80048; 85025; 93457; C1887; C1894; J0360; J1644; J2250; J3010; J7040

== ENCOUNTER 2021-08-27 10:35 | Outpatient (CLI) | payer MEDICARE, SELFPAY ==
--- NOTE | ~2021-08-27 | MR_ITS ---
EXAMINATION: MR lumbar spine wo con DATE: 08/27/2021 11:14 INDICATION: Dorsalgia, unspecified. Bilateral lower extremity weakness. TECHNIQUE: Magnetic resonance imaging (MRI) of the lumbar spine was performed without intravenous con trast. Sequences included sagittal T2-weighted FSE, sagittal T2-weighted FS FSE, sagittal T1-weighted FSE, and axial T2-weighted FSE. COMPARISON: None FINDINGS: There is 7 degrees dextrocurvature of lumbar spine. There is mild chronic anterior wedging of T12 and L1 vertebral bodies. There are Schmorl's nodes at most levels. There is mildly decreased d isc height at L2-L3, severely decreased disc height at L4-L5, and moderately decreased disc height at L5-S1. The distal spinal cord signal intensity is normal. The conus medullaris is at L1. The followi ng disc levels are specifically discussed: L1-L2: The disc is bulging. There is moderate bilateral facet joint osteoarthritis. There is mild see ateral neural foraminal stenosis. There is mild central canal stenosis. L2-L3: The disc is bulging. There is moderate bilateral facet joint osteoarthritis. There is mild see ateral neural foraminal stenosis. There is mild central canal stenosis. L3-L4: The disc is bulging and has an annular fissure. There is mild bilateral facet joint osteoarthr itis. There is moderate bilateral neural foraminal stenosis. There is mild central canal stenosis. L4-L5: The disc is bulging and has an annular fissure. There is mild right and moderate left facet kristine int osteoarthritis. There is moderate bilateral neural foraminal stenosis. There is mild central marcela l stenosis. L5-S1: The disc is bulging and has an annular fissure. There is mild bilateral facet joint osteoarthr itis. There is moderate bilateral neural foraminal stenosis. There is mild central canal stenosis. IMPRESSION: 1. Severe lumbar spondylosis. Reviewed, dictated and finalized at location A.
== END 2021-08-27 10:36 | disposition home or self-care (01) ==
LOC: ANHIMG 10:39
PROVIDERS: PCP Internal Medicine; Visit Provider Internal Medicine
DX: M54.9 Dorsalgia, unspecified (principal); M47.816 Spondylosis without myelopathy or radiculopathy, lumbar region
CPT/HCPCS: 72148

== ENCOUNTER 2021-09-01 12:12 | Outpatient (CLI) | payer MEDICARE, SELFPAY ==
[2021-09-01 13:30] LABS: Basophils Percent Auto 0.7 % (0.2-1.2); Eosinophils Absolute Auto 0.2 K/mm3 (0-0.3); Eosinophils Percent Auto 3.6 % (0-4.4); Hematocrit 35.8 % (42.0-52.0); Hemoglobin 11.9 g/dL (14.0-18.0); Immature Granulocyte Absolute 0.02 K/mm3 (0.00-0.031); Immature Granulocyte Percent A 0.3 % (0-0.5); Mean Corpuscular HGB Conc 33.2 g/dl (32-36); Mean Corpuscular Hemoglobin 30.1 pg (26-34); Mean Corpuscular Volume 90.4 fl (80-100); Mean Platelet Volume 10.6 fl (7.4-10.4); Monocytes Absolute Auto 0.5 K/mm3 (0.1-0.6); Monocytes Percent Auto 8.2 % (2.6-8.5); Neutrophils Absolute Auto 3.6 K/mm3 (1.3-6.7); Neutrophils Percent Auto 59.2 % (45.5-73.1); Platelet Count Result 166 k/mm3 (150-375); Red Blood Count 3.96 M/mm3 (4.6-6.20); Red Cell Distribution Width 14.5 % (11.5-14.5); White Blood Count 6.1 K/mm3 (4.5-10.0)
[2021-09-01 13:48] LABS: Alanine Aminotransferase 24 U/L (4-50); Albumin Level 4.3 g/dL (3.5-5.1); Alkaline Phosphatase 69 U/L (38-126); Anion Gap 4 mmol/L (8-16); Aspartate Amino Transferase 28 U/L (17-59); Bilirubin,Total 0.5 mg/dL (0.2-1.3); Blood Urea Nitrogen 25 mg/dL (9-20); Carbon Dioxide 31 mmol/L (22-30); Chloride 105 mmol/L (98-107); Estimated Glomerular Filt Rate 42; Glucose 141 mg/dL (65-110); Potassium 4.1 mmol/L (3.4-5.0); Sodium 140 mmol/L (137-145)
== END 2021-09-01 12:13 | disposition home or self-care (01) ==
PROVIDERS: PCP Internal Medicine; Visit Provider Internal Medicine Cardiovascular Disease
DX: Z01.810 Encounter for preprocedural cardiovascular examination (principal); I25.10 Atherosclerotic heart disease of native coronary artery without angina pectoris
CPT/HCPCS: 36415; 80053; 85025

== ENCOUNTER 2021-09-30 10:56 | Inpatient (IN) | payer MEDICARE, SELFPAY ==
[2021-09-30] VITALS (16 sets, daily range): BP systolic 128–167; BP diastolic 58–96; PULSE 79–108; RESP 19–27; TEMP 36.6–37.5; O2SAT 89–98; BMI 41.5
--- NOTE | ~2021-09-30 | US_ITS ---
EXAMINATION: US renal BI DATE: 10/03/2021 17:28 INDICATION: Acute kidney injury TECHNIQUE: Multiple grayscale and Doppler ultrasound images of the kidneys were obtained. COMPARISON: 03/17/2019 FINDINGS: The right kidney measures 13.8 x 5.3 x 7.1 cm. The left kidney measures 14.7 x 6.5 x 6.5 cm . The kidneys demonstrate normal parenchymal echogenicity. There is no hydronephrosis. The bladder is decompressed by Sheikh catheter. IMPRESSION: 1. Normal kidneys without hydronephrosis. Reviewed, dictated and finalized at location F.
--- NOTE | ~2021-09-30 | XR_ITS ---
XR chest 2V 09/30/2021 11:43 Indication: Shortness of breath with stent placement Procedure: 2 view chest Comparison: 05/11/2017 Findings: Status post median sternotomy for CABG. Cardiomegaly. Extensive bilateral airspace disease, right greater than left. Small pleural effusions. No pneumothorax. Impression: 1: Widespread bilateral airspace disease which may represent edema or pneumonia. 2: Small pleural effusions. 3: Cardiomegaly. Reviewed, dictated and finalized at location A. Impression: 1: Widespread bilateral airspace disease which may represent edema or pneumonia . 2: Small pleural effusions. 3: Cardiomegaly.
--- NOTE | 2021-09-30 11:21 | ECG_ITS ---
Measurements Intervals [place] Rate: 84 P: 56 OK: 172 QRS: -29 QRSD: 132 T: 69 QT: 398 QTc: 471 Interpretive Statements SINUS RHYTHM LEFT BUNDLE BRANCH BLOCK BASELINE ARTIFACT- I, II, III, AVR, AVL, V1-V2 ABNORMAL ECG Electronically Signed On 09-30-2021 14:30:30 CDT by Angel Mejia D.O.
[2021-09-30 11:42] LABS: Basophils Percent Auto 0.3 % (0.2-1.2); Eosinophils Absolute Auto 0.1 K/mm3 (0-0.3); Eosinophils Percent Auto 1.1 % (0-4.4); Hematocrit 31.5 % (42.0-52.0); Hemoglobin 10.5 g/dL (14.0-18.0); Immature Granulocyte Absolute 0.08 K/mm3 (0.00-0.031); Immature Granulocyte Percent A 0.8 % (0-0.5); Lymphocytes Absolute Auto 1.06 K/mm3 (0.9-3.2); Lymphocytes Percent Auto 10.4 % (18.3-44.2); Mean Corpuscular HGB Conc 33.3 g/dl (32-36); Mean Corpuscular Hemoglobin 29.2 pg (26-34); Mean Corpuscular Volume 87.5 fl (80-100); Mean Platelet Volume 9.8 fl (7.4-10.4); Monocytes Absolute Auto 0.8 K/mm3 (0.1-0.6); Monocytes Percent Auto 7.5 % (2.6-8.5); Neutrophils Absolute Auto 8.2 K/mm3 (1.3-6.7); Neutrophils Percent Auto 79.9 % (45.5-73.1); Platelet Count Result 260 k/mm3 (150-375); Red Cell Distribution Width 14.1 % (11.5-14.5); White Blood Count 10.2 K/mm3 (4.5-10.0)
[2021-09-30 11:52] LABS: Alanine Aminotransferase 57 U/L (6-50); Albumin Level 3.7 g/dL (3.5-5.1); Alkaline Phosphatase 89 U/L (38-126); Anion Gap 10 mmol/L (8-16); Aspartate Amino Transferase 89 U/L (17-59); Bilirubin,Total 0.6 mg/dL (0.2-1.3); Blood Urea Nitrogen 40 mg/dL (9-20); Calcium 8.7 mg/dL (8.4-10.2); Carbon Dioxide 23 mmol/L (22-30); Chloride 105 mmol/L (98-107); Estimated CRCL calculation 32 ml/min; Estimated Glomerular Filt Rate 28; Glucose 138 mg/dL (65-110); Potassium 3.9 mmol/L (3.4-5.0); Sodium 138 mmol/L (137-145)
[2021-09-30 11:53] LABS: INR 1.2; Prothrombin Time 14.4 Seconds (11.1-14.7)
[2021-09-30 11:54] LABS: Partial Thromboplastin Time 40.2 SECONDS (22.3-36.8)
[2021-09-30 12:06] LABS: NT Pro B Type Natriuretic Pept 4570 pg/mL (5-100); Troponin I 0.058 ng/mL (0.000-0.034)
[2021-09-30] MEDS: FUROSEMIDE INJ 40 MG/4 ML VIAL IV PUSH (12:33)
--- NOTE | 2021-09-30 13:02 | ED.SOB ---
HPI - SOB/Dyspnea General Chief Complaint: Shortness of Breath/Dyspnea Stated Complaint: SOB Time Seen by Provider: 09/30/21 11:36 History of Present Illness HPI Narrative: 75-year-old male with history of heart failure, CAD with stents placed 3 weeks ago presents here with increasing difficulty breathing over the last 4 days and lower extremity edema, denies any chest pain, no nausea or vomiting or diaphoresis. Has had this in the past when he has volume overload. Related Data Home Medications Medication Instructions Recorded Confirmed amlodipine 5 mg tablet 10 mg PO QAM 04/14/19 09/30/21 aspirin 81 mg tablet,delayed 81 mg PO DAILY 04/14/19 09/30/21 release (Adult Aspirin Regimen) rosuvastatin 10 mg tablet 10 mg PO DAILY 04/14/19 09/30/21 multivitamin (Multiple Vitamins) 1 tablet PO DAILY 06/28/19 09/30/21 alpha lipoic acid 600 mg capsule 600 mg PO DAILY 12/12/20 09/30/21 hydralazine 50 mg tablet 50 mg PO TID 12/12/20 09/30/21 insulin aspar prot-insulin aspart See Rx Instructions .Route .COMPLEX 12/12/20 09/30/21 100 unit/mL (70-30) subcutaneous pen (Novolog Mix 70-30FlexPen U-100) lisinopril 20 mg tablet 20 mg PO BID 02/04/21 09/30/21 bumetanide 2 mg tablet 2 mg PO BID 07/29/21 09/30/21 cholecalciferol (vitamin D3) 10 10 mcg PO DAILY 07/29/21 09/30/21 mcg (400 unit) capsule nitroglycerin 400 mcg/spray 1 spray sublingual Q5MIN chest pain 07/29/21 09/30/21 translingual clopidogrel 75 mg tablet 75 mg PO DAILY 09/30/21 09/30/21 nebivolol 20 mg tablet 20 mg PO DAILY 09/30/21 09/30/21 Allergies Allergy/AdvReac Type Severity Reaction Status Date / Time codeine AdvReac Intermediate Itching Verified 09/30/21 11:07 tramadol AdvReac Mild Nausea And Verified 09/30/21 11:07 Vomiting Review of Systems Review of Systems: CONST: No fever. HEENT: No sore throat C/V: No chest pain RESP: Shortness of breath GI: No nausea vomiting : No dysuria. M/S: Bilateral lower extremity edema SKIN: No rash. NEURO: [No headache or focal numbness or weakness] PSYCH: [No depression] [facility] Past Medical History Medical History Arthritis BPH (benign prostatic hyperplasia) CAD (coronary artery disease) CHF (congestive heart failure) Chronic GERD Diabetes HTN (hypertension) Hypercholesterolemia Hyperlipidemia Obesity MARY (obstructive sleep apnea) MARY on CPAP Type 2 diabetes mellitus Surgical History Surgical History S/P AVR S/P CABG (coronary artery bypass graft) Family History Family History Mother Family history of heart disease in male family member before age 55 Patient's mother is Acute myocardial infarction Diabetes mellitus Father Patient's father is Sibling Diabetes mellitus Sibling Hypertension Social History Social History Smoking packs per day: 4 Smoking cigarettes per day: 80.0 Years smoked: 30 Smoking pack-years: 120.00 Smoking status: Former smoker Tobacco type: cigarettes Second hand tobacco smoke exposure: Yes Smoking end date: 05/03/86 Alcohol intake: never Drinks per week: 3 Substance use: never Substance use type: does not use Additional living arrangements comments: Gender identity (if verbalized by the patient): Male Spiritual care concerns: No Exam Narrative: EXAMINATION OF ORGAN SYSTEMS/BODY AREAS: Constitutional: Vital signs per nursing GENERAL:[No acute distress, non-toxic appearing.] HEAD: Normal with no signs of head trauma. EYES: EOMI, conjunctiva normal ENT: Hearing grossly intact LUNGS: Nonlabored breathing. HEART: [Regular rate and rhythm] ABD: [Soft], [tender to palpation] EXT: Normal range of motion, bilateral lower extremity swelling pitting SKIN: [No rashes or lesions.]
[2021-09-30] MEDS: ASPIRIN 81 MG CHEWABLE TABLET 324 MG PO (13:05)
--- NOTE | 2021-09-30 14:24 | ADMGEN ---
This patient, Gabriel Celeste, was admitted to IMU Room 232-01. Patient/family oriented to hospital policies and general routines including ID bracelet, bed and alarms, visiting hours, pain management, procedures, bathroom and other care routines, personal items, smoking policy, room service/diet, and visiting hours. Information on how to activate the Rapid Response Team has been discussed. Patient/Family are encouraged to report perceived risks to care and to ask questions if they do not understand what they are told or what they should do.
[2021-09-30 15:48] LABS: Troponin I 0.066 ng/mL (0.000-0.034)
[2021-09-30 16:12] LABS: Glucose Point of Care 185 mg/dl (65-105)
[2021-09-30] MEDS: FUROSEMIDE INJ 100 MG/10 ML VIAL 80 MG IV PUSH (18:20)
[2021-09-30] MEDS: hydrALAZINE HCL 50 MG TABLET PO (18:33)
[2021-09-30] MEDS: lisinopriL 20 MG TABLET PO (20:23)
[2021-09-30] MEDS: IPRATROPIUM BR 0.02% INH SOLN 0.5 MG/2.5 ML VIAL INHALATION (21:14)
--- NOTE | 2021-09-30 21:28 | PM.IMHP ---
H&P: HPI History of Present Illness Date/Time: Patient was placed observation status for expected length of stay less than 23 hours for management, will plan to re-evaluate tomorrow for improvement. 09/30/21 21:28 Chief Complaint: Shortness of breath Narrative: Mr. Celeste is a 75-year-old gentleman who presented emergency room with complaints of shortness of breath for approximately 3 days. Patient states over the last 3 days he has had increasing shortness of breath. Patient states at 1st he felt like he was just having trouble catching his breath and now he feels like he cannot take a deep breath. Patient denies any chest pain, lightheadedness, dizziness, syncopal, or near syncopal episodes. Patient denies wearing any oxygen at home. Patient states he is supposed to weigh himself daily, but he only weighs himself every 3-4 days. Patient's spouse states that she noted the patient gained 5 lb in 4 days. Patient states he has been taking all of his medications without any difficulty. Upon evaluation emergency room patient was noted to have significant edema and his chest x-ray showed widespread bilateral airspace disease which may represent edema or pneumonia. Patient has a known history of coronary disease status post coronary bypass grafting status post stent placement to his mid LAD approximately 3 weeks ago. Patient also has a known history of bladder cancer, hypertension, dyslipidemia, and diabetes mellitus. Patient also has a known history of bioprosthetic aortic valve replacement. Review of Systems Review of Systems: A 12 point review of systems was completed patient all pertinent positive and negative per HPI the remainder are unremarkable. [facility] Past Medical History Medical History Arthritis BPH (benign prostatic hyperplasia) CAD (coronary artery disease) CHF (congestive heart failure) Chronic GERD Diabetes HTN (hypertension) Hypercholesterolemia Hyperlipidemia Obesity MARY (obstructive sleep apnea) MARY on CPAP Type 2 diabetes mellitus Surgical History Surgical History S/P AVR S/P CABG (coronary artery bypass graft) Family History Family History Mother Family history of heart disease in male family member before age 55 Patient's mother is Acute myocardial infarction Diabetes mellitus Father Patient's father is Sibling Diabetes mellitus Sibling Hypertension Social History Social History Smoking packs per day: 4 Smoking cigarettes per day: 80.0 Years smoked: 30 Smoking pack-years: 120.00 Smoking status: Former smoker Tobacco type: cigarettes Second hand tobacco smoke exposure: Yes Smoking end date: 05/03/86 Alcohol intake: never Drinks per week: 3 Substance use: never Substance use type: does not use Additional living arrangements comments: Gender identity (if verbalized by the patient): Male Spiritual care concerns: No Meds Home Medications and Allergies Home Medications Medication Instructions Recorded Confirmed Type amlodipine 5 mg tablet 10 mg PO QAM 04/14/19 09/30/21 History aspirin 81 mg tablet,delayed 81 mg PO DAILY 04/14/19 09/30/21 History release (Adult Aspirin Regimen) rosuvastatin 10 mg tablet 10 mg PO DAILY 04/14/19 09/30/21 History multivitamin (Multiple Vitamins) 1 tablet PO DAILY 06/28/19 09/30/21 History alpha lipoic acid 600 mg capsule 600 mg PO DAILY 12/12/20 09/30/21 History hydralazine 50 mg tablet 50 mg PO TID 12/12/20 09/30/21 History insulin aspar prot-insulin aspart See Rx Instructions .Route .COMPLEX 12/12/20 09/30/21 History 100 unit/mL (70-30) subcutaneous pen (Novolog Mix 70-30FlexPen U-100) lisinopril 20 mg tablet 20 mg PO BID 02/04/21 09/30/21 History terazosin
[2021-09-30 21:31] LABS: Glucose Point of Care 98 mg/dl (65-105)
[2021-10-01] VITALS (20 sets, daily range): BP systolic 130–167; BP diastolic 52–87; PULSE 67–100; RESP 15–25; TEMP 36.2–39.2; O2SAT 93–99
--- NOTE | 2021-10-01 | ECHO_ITS ---
Patient Info Name: Gabriel Celeste Age: 75 years : 1945 Gender: Male Ht: 68 in Wt: 272 lbs BSA: 2.49 m2 HR: 81 bpm BP: 134 / 52 mmHg Heart Rhythm: Sinus Rhythm Technical Quality: Fair Exam Date: 10/01/2021 1:27 PM Exam Location: [facility] Patient Status: Inpatient Admit Date: 09/30/2021 Staff Ordering Physician: Clare Bergman MD County Administrator: Sue Cope RDCS Attending Provider: Astrid Webster MD Referring Physician: Pacheco ROBLES; Exam Type: CA echo dop color flow w con Study Info Indications - CHF exacerbation Complete two-dimensional, color flow and Doppler transthoracic echocardiogram is performed with contrast to opacify the left ventricle and to improve the deliniation of the left ventricle endocardial borders. Contrast/Agitated Saline Contrast/Ag. Saline: Definity Amount: 3.00 ml Administered By: Sue Cope RDCS Existing IV Access: Yes IV Access Condition: patent with no signs of infiltration Summary 1. LVH, mild LV enlargement, LVEF approximately 55%; diastolic dysfunction is present with elevated left atrial pressures. Anteroseptum appears hypokinetic. Mild biatrial enlargement. Mitral valve leaflets mildly thickened, mild mitral annular calcification, no significant MR. Aortic valve is not well visualized. Mild aortic stenosis by Doppler, maximum velocity 2.86 m/sec, mean gradient 20 mmHg, calculated PARESH 1.6 cm2. Trace TR, RVSP 36 mmHg. Left Ventricle Left ventricular chamber dimension is mildly enlarged. Left ventricular systolic function is normal, estimated at 50-55%. There is mildly increased left ventricular wall thickness. The left ventricular diastolic function is abnormal. E/e' 15.07 is elevated. Right Ventricle Right ventricular chamber dimension is normal. Right ventricular systolic function is reduced. Left Atria Left atrial chamber dimension is mildly enlarged. Right Atria Right atrial chamber dimension is mildly enlarged. Aortic Valve The aortic valve is not well visualized. There is mild aortic valve stenosis with a peak velocity of 285.61 cm/s, mean gradient of 20 mmHg, and aortic valve area of 1.61 cm2. Pulmonic Valve The pulmonic valve is not well visualized. Mitral Valve The mitral valve has thickened leaflets. There is trace mitral valve regurgitation. The mitral valve annulus is mildly calcified. Tricuspid Valve The tricuspid valve leaflets are normal. There is trace tricuspid valve regurgitation. Pericardium/Pleural The pericardium appears increased echogenicity of the pericardium. There is no pericardial effusion. Inferior Vena Cava Dilated inferior vena cava with <50% collapse upon inspiration consistent with elevated right atrial pressure, 10 mmHg. Aorta The aortic root size at the sinus of Valsalva is normal. Left Ventricular Outflow Tract Name Value Normal LVOT 2D LVOT Diameter 2.38 cm LVOT Doppler LVOT Peak Gradient 5 mmHg LVOT Mean Gradient 3 mmHg LVOT VTI 20.09 cm
[2021-10-01 02:09] LABS: SARS-CoV-2 RNA PCR Negative
[2021-10-01 03:35] LABS: Glucose Point of Care 162 mg/dl (65-105)
[2021-10-01 05:02] LABS: Basophils Percent Auto 0.2 % (0.2-1.2); Eosinophils Percent Auto 0.2 % (0-4.4); Hematocrit 28.6 % (42.0-52.0); Hemoglobin 9.5 g/dL (14.0-18.0); Immature Granulocyte Absolute 0.04 K/mm3 (0.00-0.031); Immature Granulocyte Percent A 0.5 % (0-0.5); Lymphocytes Absolute Auto 0.95 K/mm3 (0.9-3.2); Lymphocytes Percent Auto 11.3 % (18.3-44.2); Mean Corpuscular HGB Conc 33.2 g/dl (32-36); Mean Corpuscular Hemoglobin 29.4 pg (26-34); Mean Corpuscular Volume 88.5 fl (80-100); Mean Platelet Volume 9.7 fl (7.4-10.4); Monocytes Absolute Auto 0.6 K/mm3 (0.1-0.6); Monocytes Percent Auto 6.7 % (2.6-8.5); Neutrophils Absolute Auto 6.8 K/mm3 (1.3-6.7); Neutrophils Percent Auto 81.1 % (45.5-73.1); Platelet Count Result 255 k/mm3 (150-375); Red Blood Count 3.23 M/mm3 (4.6-6.20); Red Cell Distribution Width 14.1 % (11.5-14.5); White Blood Count 8.4 K/mm3 (4.5-10.0)
[2021-10-01 05:14] LABS: Alanine Aminotransferase 52 U/L (6-50); Albumin Level 3.2 g/dL (3.5-5.1); Alkaline Phosphatase 74 U/L (38-126); Anion Gap 10 mmol/L (8-16); Aspartate Amino Transferase 89 U/L (17-59); Bilirubin,Total 0.5 mg/dL (0.2-1.3); Blood Urea Nitrogen 45 mg/dL (9-20); Calcium 8.5 mg/dL (8.4-10.2); Carbon Dioxide 25 mmol/L (22-30); Chloride 104 mmol/L (98-107); Estimated CRCL calculation 32 ml/min; Estimated Glomerular Filt Rate 28; Glucose 165 mg/dL (65-110); Magnesium 2.1 mg/dL (1.6-2.3); Potassium 3.8 mmol/L (3.4-5.0); Sodium 139 mmol/L (137-145)
[2021-10-01] MEDS: allopurinoL 300 MG TABLET PO (08:43)
[2021-10-01] MEDS: CHOLECALCIFEROL 400 UNITS TABLET (VIT D) PO (08:43)
[2021-10-01] MEDS: TERAZOSIN HCL 5 MG CAPSULE 10 MG PO (08:43)
[2021-10-01] MEDS: lisinopriL 20 MG TABLET PO ×2 (08:43→20:36)
[2021-10-01] MEDS: ROSUVASTATIN 10 MG TABLET PO (08:43)
[2021-10-01] MEDS: FINASTERIDE 5 MG TABLET PO (08:43)
[2021-10-01] MEDS: CLOPIDOGREL BISULFATE 75 MG TABLET PO (08:43)
[2021-10-01] MEDS: hydrALAZINE HCL 50 MG TABLET PO ×3 (08:44→17:34)
[2021-10-01] MEDS: NEBIVOLOL HCL 5 MG TABLET 20 MG PO (08:44)
[2021-10-01] MEDS: MULTIVITAMINS THERAPEUTIC TAB (*BKC) 1 TABLET PO (08:44)
[2021-10-01] MEDS: PANTOPRAZOLE 40 MG TABLET PO (08:44)
[2021-10-01] MEDS: amLODIPine BESYLATE 5 MG TABLET 10 MG PO (08:44)
[2021-10-01] MEDS: ASPIRIN 81 MG ENTERIC TABLET PO (08:44)
[2021-10-01] MEDS: FUROSEMIDE INJ 100 MG/10 ML VIAL 80 MG IV PUSH ×2 (08:45→17:34)
[2021-10-01] MEDS: ENOXAPARIN 30 MG/0.3 ML SYRINGE SUB-Q (08:45)
[2021-10-01 09:19] LABS: Glucose Point of Care 117 mg/dl (65-105)
--- NOTE | 2021-10-01 10:51 | WPDCDIQUERY2 ---
CDI Query Clarification Request 09/30 Hospitalist documented: ?Acute exacerbation of CHF (congestive heart failure): ?Code(s): I50.9 - Heart failure, unspecified ?Status:?Acute ?Assessment and Plan: ?patient has an ejection fraction of approximately 57%.? Patient does have impaired diastolic relaxation with grade 1 diastolic dysfunction.? Patient states he has gained 5 lb last 4 days.? Will diurese patient with IV Lasix and continue to monitor intake and output very closely.? Will have daily weights.? May need to consult Cardiology for any further recommendations For coding purposes, coders cannot use procedure or lab results, please clarify if Acute exacerbation of CHF is: Diastolic, Systolic, combined or unable to determine. <Shirlene Medina - Last Filed: 10/01/21 10:54> 09/30 Hospitalist documented: ?Acute exacerbation of CHF (congestive heart failure): ?Code(s): I50.9 - Heart failure, unspecified ?Status:?Acute ?Assessment and Plan: ?patient has an ejection fraction of approximately 57%.? Patient does have impaired diastolic relaxation with grade 1 diastolic dysfunction.? Patient states he has gained 5 lb last 4 days.? Will diurese patient with IV Lasix and continue to monitor intake and output very closely.? Will have daily weights.? May need to consult Cardiology for any further recommendations For coding purposes, coders cannot use procedure or lab results, please clarify if Acute exacerbation of CHF is: Diastolic, Systolic, combined or unable to determine. Diastolic congestive heart failure <Clare Bergman MD - Last Filed: 10/02/21 18:45>
[2021-10-01 11:28] LABS: Glucose Point of Care 203 mg/dl (65-105)
[2021-10-01] MEDS: INSULIN ASPART (*BKC) 100 UNITS/ML SUB-Q (13:05)
[2021-10-01] MEDS: PERFLUTREN LIPID MICROSPHERES 1.5 ML VIAL DILUTED TO 10 ML TOTAL VOLUME IV PUSH (14:08)
--- NOTE | 2021-10-01 14:09 | IVDEFINITY ---
Prior to administration of IV Definity the patient was educated on the risks and benefits of the imaging enhancing agent including potential adverse side effects. The patient verbalized understanding. Allergies were verified. No exclusion criteria were identified and at least one of the following inclusion criteria were met: 1) physician request, 2) patient technically difficult to image (per the [place] [employer] guidelines of two or more segments not discernable within the apical view), or 3) questionable left ventricular function. ?
[2021-10-01 17:21] LABS: Glucose Point of Care 143 mg/dl (65-105)
[2021-10-01 20:46] LABS: Glucose Point of Care 171 mg/dl (65-105)
--- NOTE | 2021-10-01 20:49 | PM.IMPN ---
Progress Note: A&P Assessment and Plan (1) Acute kidney injury superimposed on chronic kidney disease: Code(s): N17.9 - Acute kidney failure, unspecified; N18.9 - Chronic kidney disease, unspecified Status: Acute (2) Acute exacerbation of CHF (congestive heart failure): Code(s): I50.9 - Heart failure, unspecified Status: Acute (3) Elevated troponin: Code(s): R77.8 - Other specified abnormalities of plasma proteins Status: Acute (4) Obesity, Class III, BMI 40-49.9 (morbid obesity): Code(s): E66.01 - Morbid (severe) obesity due to excess calories Status: Acute (5) Low back pain: Code(s): M54.50 - Low back pain, unspecified Status: Acute (6) Leg weakness, bilateral: Code(s): R29.898 - Other symptoms and signs involving the musculoskeletal system Status: Acute (7) Neuropathy: Code(s): G62.9 - Polyneuropathy, unspecified Status: Acute (8) Diabetes: Code(s): E11.9 - Type 2 diabetes mellitus without complications Status: Acute (9) BPH (benign prostatic hyperplasia): Code(s): N40.0 - Benign prostatic hyperplasia without lower urinary tract symptoms Status: Acute (10) Chronic GERD: Code(s): K21.9 - Gastro-esophageal reflux disease without esophagitis Status: Acute (11) MARY on CPAP: Code(s): G47.33 - Obstructive sleep apnea (adult) (pediatric); Z99.89 - Dependence on other enabling machines and devices Status: Acute (12) HTN (hypertension): Code(s): I10 - Essential (primary) hypertension Status: Acute (13) Hypercholesterolemia: Code(s): E78.00 - Pure hypercholesterolemia, unspecified Status: Acute (14) CAD (coronary artery disease): Code(s): I25.10 - Atherosclerotic heart disease of [place] coronary artery without angina pectoris Status: Acute (15) S/P AVR: Code(s): Z95.2 - Presence of prosthetic heart valve Status: Acute Plan 10/01/21 Patient admitted to step-down bipap PRN CPAP from home lasix covering for PNA pt febrile at time of admission blood cultures pending procalcitonin ordered supportive care c/s cardio c/s nephro Subjective Date/time seen: 10/01/21 10:49 Patient doing okay, breathing better and off of BiPAP. daughter and her bedside all questions are answered. They raise concern for when year old should seek medical attention. I have expressed to them that if his oxygen saturation it decreases into the low 90s he should seek medical attention immediately and if he is in the 80s he should come via 911 ambulance. denies any excessive use of salt or fluid intake I will defer further CHF Education to Cardiology group. Exam Narrative: Constitutional: Patient is well-nourished in no acute distress. Patient is alert and oriented x3 HEENT: Moist mucous membranes. No scleral icterus. No lymphadenopathy. Neck: No carotid bruits noted no JVD noted Lungs: Patient has crackles noted to bilateral bases. Cardiovascular: regular rate and rhythm. S1-S2 Abdomen: Soft, round, and nontender. No palpable masses. Extremities: 3+ pitting edema noted bilateral lower extremities. Nontender. Skin: No rashes or lesions. Warm and dry. Skin is intact. Neurological: No focal neurological deficits. Cranial nerves II-XII grossly intact. Psychiatric: Cooperative, appropriate mood, and affect Objective Data Vital Signs Vital Signs: Vital Signs - 24 hr 09/30/21 21:14 09/30/21 21:18 09/30/21 21:23 Temperature Pulse Rate 101 H 99 Respiratory Rate 22 H 20 Blood Pressure Pulse Oximetry 94 Oxygen Delivery Nasal Cannula Oxygen Flow Rate 4 Fraction of Inspired Oxygen 09/30/21 22:00 10/01/21 00:00 10/01/21 00:00 Temperature 102.5 F H Pulse Rate 102 H 90 Respiratory Rate 27 H 22 H Blood Pressure 152/62 H Pulse Oximetry 98 97 99 Oxygen Delivery BiPAP BiPAP Oxygen Flow Rate
[2021-10-01 23:04] LABS: Procalcitonin 0.5 ng/mL
[2021-10-02] VITALS (15 sets, daily range): BP systolic 126–142; BP diastolic 56–65; PULSE 60–88; RESP 16–20; TEMP 36.6–37.7; O2SAT 92–96
[2021-10-02 04:52] LABS: Basophils Percent Auto 0.2 % (0.2-1.2); Eosinophils Absolute Auto 0.2 K/mm3 (0-0.3); Hematocrit 28.2 % (42.0-52.0); Hemoglobin 9.3 g/dL (14.0-18.0); Immature Granulocyte Absolute 0.05 K/mm3 (0.00-0.031); Immature Granulocyte Percent A 0.6 % (0-0.5); Lymphocytes Absolute Auto 1.47 K/mm3 (0.9-3.2); Lymphocytes Percent Auto 16.6 % (18.3-44.2); Mean Corpuscular Volume 87.9 fl (80-100); Mean Platelet Volume 9.9 fl (7.4-10.4); Monocytes Absolute Auto 0.5 K/mm3 (0.1-0.6); Monocytes Percent Auto 6.1 % (2.6-8.5); Neutrophils Absolute Auto 6.6 K/mm3 (1.3-6.7); Neutrophils Percent Auto 74.5 % (45.5-73.1); Platelet Count Result 277 k/mm3 (150-375); Red Blood Count 3.21 M/mm3 (4.6-6.20); Red Cell Distribution Width 14.2 % (11.5-14.5); White Blood Count 8.9 K/mm3 (4.5-10.0)
[2021-10-02 05:02] LABS: INR 1.2; Prothrombin Time 14.8 Seconds (11.1-14.7)
[2021-10-02 05:22] LABS: Alanine Aminotransferase 56 U/L (6-50); Albumin Level 3.2 g/dL (3.5-5.1); Alkaline Phosphatase 72 U/L (38-126); Anion Gap 6 mmol/L (8-16); Aspartate Amino Transferase 99 U/L (17-59); Bilirubin,Total 0.5 mg/dL (0.2-1.3); Blood Urea Nitrogen 50 mg/dL (9-20); Calcium 8.5 mg/dL (8.4-10.2); Carbon Dioxide 28 mmol/L (22-30); Chloride 103 mmol/L (98-107); Estimated CRCL calculation 32 ml/min; Estimated Glomerular Filt Rate 28; Glucose 105 mg/dL (65-110); Magnesium 2.3 mg/dL (1.6-2.3); Phosphorus 5.4 mg/dL (2.5-4.5); Potassium 3.6 mmol/L (3.4-5.0); Sodium 137 mmol/L (137-145)
[2021-10-02 05:41] LABS: CRP 21.8 mg/dL (<1.0)
[2021-10-02 08:10] LABS: Glucose Point of Care 116 mg/dl (65-105)
--- NOTE | 2021-10-02 09:16 | PM.CNCAR ---
Assessment and Plan Assessment and plan (1) Acute on chronic heart failure with preserved ejection fraction: Code(s): I50.33 - Acute on chronic diastolic (congestive) heart failure Status: Acute Assessment and Plan: Acute on chronic heart failure with preserved ejection fraction multifactorial secondary to acute on chronic renal failure, uncontrolled hypertension, underlying CAD, MARY, possible underlying pneumonia with sepsis. Normal functioning bioprosthetic aortic valve replacement echo. Abnormal LFTs most likely related to hepatic congestion. Accurate input and output, daily weight. Low sodium intake. CHF counseling. Home O2 eval prior to discharge. (2) CAD (coronary artery disease): Code(s): I25.10 - Atherosclerotic heart disease of [place] coronary artery without angina pectoris Status: Acute Assessment and Plan: Mild flat troponin elevation without ischemic symptoms or acute EKG changes. Repeat troponin for trend. Most likely secondary to acute on chronic renal failure and CHF. Recent stent implantation to mid LAD. Must continue dual antiplatelet therapy without interruption. Follow H&H. No indication for ischemic evaluation at this time. (3) Hypertension associated with chronic kidney disease due to type 2 diabetes mellitus: Code(s): E11.22 - Type 2 diabetes mellitus with diabetic chronic kidney disease; I12.9 - Hypertensive chronic kidney disease with stage 1 through stage 4 chronic kidney disease, or unspecified chronic kidney disease Status: Acute Assessment and Plan: Fair but not ideal control. Further up titration of antihypertensives as appropriate. (4) Acute kidney injury superimposed on chronic kidney disease: Code(s): N17.9 - Acute kidney failure, unspecified; N18.9 - Chronic kidney disease, unspecified Status: Acute Assessment and Plan: Continue IV diuresis. Monitor renal function electrolytes closely. Stable thus far and tolerating IV diuresis. Accurate input and output, daily weight. Nephrology consultation. (5) PNA (pneumonia): Code(s): J18.9 - Pneumonia, unspecified organism Status: Acute Assessment and Plan: Patient reported fever with wheezing and worsening shortness of breath and fatigue prior to admission. Chest x-ray suggested pulmonary vascular congestion possible pneumonia. Management Per primary service. IV antibiotics. O2 supplementation, bronchodilator therapy as appropriate. (6) Elevated troponin: Code(s): R77.8 - Other specified abnormalities of plasma proteins Status: Acute Assessment and Plan: As above. Most likely type 2 infarction not secondary to acute coronary syndrome and/or plaque rupture. (7) MARY on CPAP: Code(s): G47.33 - Obstructive sleep apnea (adult) (pediatric); Z99.89 - Dependence on other enabling machines and devices Status: Acute Assessment and Plan: Compliance with CPAP. (8) Mixed diabetic hyperlipidemia associated with type 2 diabetes mellitus: Code(s): E11.69 - Type 2 diabetes mellitus with other specified complication; E78.2 - Mixed hyperlipidemia Status: Acute Assessment and Plan: Continue statin therapy. Diabetes management per primary service. (9) S/P AVR: Code(s): Z95.2 - Presence of prosthetic heart valve Status: Acute Assessment and Plan: Stable, no acute issues. History of Present Illness History of Present Illness Consult date/time: Date of service: 10/02/21 09:16 Requesting physician: Clare Bergman MD Reason For Visit: CHF Exac Narrative: Patient is a very pleasant 75-year-old gentleman past medical history significant for chronic lower extremity edema, type 2 diabetes mellitus, morbid obesity, MARY on CPAP, hypertension, hyperlipidemia, history bioprosthetic aortic valve replacement, history of CAD status post CABG and recent percutaneous intervention stent implantation to
[2021-10-02] MEDS: ENOXAPARIN 30 MG/0.3 ML SYRINGE SUB-Q (09:32)
[2021-10-02] MEDS: ASPIRIN 81 MG ENTERIC TABLET PO (09:33)
[2021-10-02] MEDS: amLODIPine BESYLATE 5 MG TABLET 10 MG PO (09:33)
[2021-10-02] MEDS: CLOPIDOGREL BISULFATE 75 MG TABLET PO (09:33)
[2021-10-02] MEDS: MULTIVITAMINS THERAPEUTIC TAB (*BKC) 1 TABLET PO (09:33)
[2021-10-02] MEDS: ROSUVASTATIN 10 MG TABLET PO (09:33)
[2021-10-02] MEDS: TERAZOSIN HCL 5 MG CAPSULE 10 MG PO (09:33)
[2021-10-02] MEDS: NEBIVOLOL HCL 5 MG TABLET 20 MG PO (09:33)
[2021-10-02] MEDS: FINASTERIDE 5 MG TABLET PO (09:34)
[2021-10-02] MEDS: CHOLECALCIFEROL 400 UNITS TABLET (VIT D) PO (09:34)
[2021-10-02] MEDS: lisinopriL 20 MG TABLET PO ×2 (09:34→20:29)
[2021-10-02] MEDS: PANTOPRAZOLE 40 MG TABLET PO (09:34)
[2021-10-02] MEDS: hydrALAZINE HCL 50 MG TABLET PO ×3 (09:34→18:29)
[2021-10-02] MEDS: allopurinoL 300 MG TABLET PO (09:34)
[2021-10-02] MEDS: FUROSEMIDE INJ 100 MG/10 ML VIAL 80 MG IV PUSH (09:35)
--- NOTE | 2021-10-02 10:12 | PM.IMPN ---
Progress Note: A&P Assessment and Plan (1) Acute kidney injury superimposed on chronic kidney disease: Code(s): N17.9 - Acute kidney failure, unspecified; N18.9 - Chronic kidney disease, unspecified Status: Acute (2) Acute exacerbation of CHF (congestive heart failure): Code(s): I50.9 - Heart failure, unspecified Status: Acute (3) Elevated troponin: Code(s): R77.8 - Other specified abnormalities of plasma proteins Status: Acute (4) Obesity, Class III, BMI 40-49.9 (morbid obesity): Code(s): E66.01 - Morbid (severe) obesity due to excess calories Status: Acute (5) Low back pain: Code(s): M54.50 - Low back pain, unspecified Status: Acute (6) Leg weakness, bilateral: Code(s): R29.898 - Other symptoms and signs involving the musculoskeletal system Status: Acute (7) Neuropathy: Code(s): G62.9 - Polyneuropathy, unspecified Status: Acute (8) Diabetes: Code(s): E11.9 - Type 2 diabetes mellitus without complications Status: Acute (9) BPH (benign prostatic hyperplasia): Code(s): N40.0 - Benign prostatic hyperplasia without lower urinary tract symptoms Status: Acute (10) Chronic GERD: Code(s): K21.9 - Gastro-esophageal reflux disease without esophagitis Status: Acute (11) MARY on CPAP: Code(s): G47.33 - Obstructive sleep apnea (adult) (pediatric); Z99.89 - Dependence on other enabling machines and devices Status: Acute (12) HTN (hypertension): Code(s): I10 - Essential (primary) hypertension Status: Acute (13) Hypercholesterolemia: Code(s): E78.00 - Pure hypercholesterolemia, unspecified Status: Acute (14) CAD (coronary artery disease): Code(s): I25.10 - Atherosclerotic heart disease of [place] coronary artery without angina pectoris Status: Acute (15) S/P AVR: Code(s): Z95.2 - Presence of prosthetic heart valve Status: Acute (16) PNA (pneumonia): Code(s): J18.9 - Pneumonia, unspecified organism Status: Acute (17) Sepsis: Code(s): A41.9 - Sepsis, unspecified organism Status: Acute Plan 6/1/22 Patient admitted to step-down bipap PRN CPAP from home lasix covering for PNA pt febrile at time of admission blood cultures pending procalcitonin ordered supportive care c/s cardio c/s nephro 10/02/21 pt febrile tachy w leukocytosis on admission meeting criteria for sepsis further workup shows pt w negative procal but CXR w possible PNA. Atypical pneumonias frequently do not correlate w procal level. will cont to treat as PNA w sepsis POA and follow closely viral panel sent as well as atypical PNA labs CHF per Cardio Nephro consulted for renal failure stable w lasix 80mg BID but suspect that it might be beneficial to reduce dose now that pt is improving. defer to cardio and nephro Subjective Date/time seen: 10/02/21 10:12 no overnight events feeling better per pt is back to his baseline Exam Narrative: Constitutional: well-nourished in no acute distress. Patient is alert and oriented x3 HEENT: Moist mucous membranes. No scleral icterus. No lymphadenopathy. Neck: No carotid bruits noted no JVD noted Lungs: crackles better air movement no wheezing Cardiovascular: regular rate and rhythm. S1-S2 Abdomen: Soft, round, and nontender. No palpable masses. Extremities: 2+ pitting edema noted bilateral lower extremities. Nontender. Skin: No rashes or lesions. Warm and dry. Skin is intact. Neurological: No focal neurological deficits. Cranial nerves II-XII grossly intact. Psychiatric: Cooperative, appropriate mood, and affect Objective Data Vital Signs Vital Signs: Vital Signs - 24 hr 10/01/21 12:00 10/01/21 12:00 10/01/21 14:00 Temperature 99.7 F H Pulse Rate 81 82 82 Respiratory Rate 24 H Blood Pressure 134/52 L Pulse Oximetry 95 Oxygen Delivery Oxygen Bola
[2021-10-02 10:43] LABS: Basophils Percent Auto 0.4 % (0.2-1.2); Eosinophils Absolute Auto 0.2 K/mm3 (0-0.3); Eosinophils Percent Auto 2.6 % (0-4.4); Hematocrit 28.6 % (42.0-52.0); Hemoglobin 9.4 g/dL (14.0-18.0); Immature Granulocyte Absolute 0.04 K/mm3 (0.00-0.031); Immature Granulocyte Percent A 0.5 % (0-0.5); Lymphocytes Absolute Auto 0.91 K/mm3 (0.9-3.2); Lymphocytes Percent Auto 11.2 % (18.3-44.2); Mean Corpuscular HGB Conc 32.9 g/dl (32-36); Mean Corpuscular Hemoglobin 28.9 pg (26-34); Mean Platelet Volume 10.2 fl (7.4-10.4); Monocytes Absolute Auto 0.4 K/mm3 (0.1-0.6); Monocytes Percent Auto 5.1 % (2.6-8.5); Neutrophils Absolute Auto 6.5 K/mm3 (1.3-6.7); Neutrophils Percent Auto 80.2 % (45.5-73.1); Platelet Count Result 299 k/mm3 (150-375); Red Blood Count 3.25 M/mm3 (4.6-6.20); Red Cell Distribution Width 14.3 % (11.5-14.5); White Blood Count 8.1 K/mm3 (4.5-10.0)
--- NOTE | 2021-10-02 10:52 | WPDCDIQUERY2 ---
CDI Query Clarification Request 10/01 Hospitalist documented: ?Acute exacerbation of CHF (congestive heart failure): ?Code(s): I50.9 - Heart failure, unspecified ?Status:?Acute 10/01 [employer] Service Agent documented: Consult date/time: Date of service:? 10/02/21? 09:16 Requesting physician: Clare Bergman MD Reason For Visit: CHF Exac 10/01/2021 2D echocardiogram: Summary ? 1. LVH, mild LV enlargement, LVEF approximately 55%; diastolic dysfunction is present with elevated left atrial pressures.? Anteroseptum appears hypokinetic.? Mild biatrial enlargement.? Mitral valve leaflets mildly thickened, mild mitral annular calcification, no significant MR.? Aortic valve is not well visualized.? Mild aortic stenosis by Doppler, maximum velocity 2.86 m/sec, mean gradient 20 mmHg, calculated PARESH 1.6 cm2.? Trace TR, RVSP 36 mmHg. For coding purposes, coders cannot accept results from procedures or labs, please clarify if Acute exacerbation of CHF is: Diastolic, Systolic, combined or unable to determine. <Shirlene Medina - Last Filed: 10/02/21 10:59> Provider Comments See complete consult note. This CTI clarification request was sent prior to documentation in the consult note. Thank you. <Aguila Chris MD - Last Filed: 10/02/21 15:50>
[2021-10-02 10:54] LABS: Alanine Aminotransferase 53 U/L (6-50); Albumin Level 3.1 g/dL (3.5-5.1); Alkaline Phosphatase 74 U/L (38-126); Anion Gap 8 mmol/L (8-16); Aspartate Amino Transferase 87 U/L (17-59); Bilirubin,Total 0.4 mg/dL (0.2-1.3); Blood Urea Nitrogen 51 mg/dL (9-20); Calcium 8.3 mg/dL (8.4-10.2); Carbon Dioxide 27 mmol/L (22-30); Chloride 103 mmol/L (98-107); Estimated CRCL calculation 33 ml/min; Estimated Glomerular Filt Rate 29; Glucose 227 mg/dL (65-110); Potassium 3.6 mmol/L (3.4-5.0); Sodium 138 mmol/L (137-145)
[2021-10-02 12:47] LABS: Glucose Point of Care 172 mg/dl (65-105)
--- NOTE | 2021-10-02 12:47 | PM.CNNEP ---
Assessment and Plan Assessment and plan (1) JUANITA (acute kidney injury): Code(s): N17.9 - Acute kidney failure, unspecified Status: Acute Assessment and Plan: creatinine up to 2.3mg/dl on admission in spite of diuresis, renal function stable if not slightly improving due to CHF versus pneumonia versus combination of both(?) check renal ultrasound and CPK check urine electrolytes (but in the context of diuresis, interpretation may be difficult) follow repeat labs and UOP (2) Stage 3b chronic kidney disease: Code(s): N18.32 - Chronic kidney disease, stage 3b Status: Acute Assessment and Plan: baseline creatinine runs around 1.5 - 2.0mg/dl in the last year due to diabetes and hypertension with associated proteinuria (3) Acute on chronic heart failure with preserved ejection fraction: Code(s): I50.33 - Acute on chronic diastolic (congestive) heart failure Status: Acute Assessment and Plan: likely precipitated by several issues: JUANITA on CKD uncontrolled HTN MARY pneumonia clinically improving with diuresis follow I/Os, daily weights, and respiratory status Cardiology following (4) PNA (pneumonia): Code(s): J18.9 - Pneumonia, unspecified organism Status: Acute Assessment and Plan: admission CXR suggestive of this along with pulmonary vascular congestion fever, wheezing and worseing SOB prior to admission follow culture data on antibiotics supplemental oxygen as needed (5) Hypertension: Code(s): I10 - Essential (primary) hypertension Status: Chronic Assessment and Plan: reasonable control at this time follow trend of hemodynamics (6) Type 2 diabetes mellitus: Code(s): E11.9 - Type 2 diabetes mellitus without complications Status: Chronic Assessment and Plan: follow accuchecks glycemic control Long and extensive discussion (> 20 minutes) with patient and his and daughter at bedside regarding his renal dysfunction and plan of care as outlined above. They appeared to voice understanding. Will continue to follow. History of Present Illness Reason for Consult Consult date: 10/02/21 Reason for consult: acute renal failure (on chronic kidney disease) Chief Complaint Chief complaint: CHF Exac History of Present Illness Narrative: The patient is a 75-year-old male with a past medical history as outlined below who presented to [facility] Emergency room with complaints of shortness of breath The patient states that shortness of breath has been going on for the last 3 days but has been persistently getting worse up until the day of his presentation to the ER. When the shortness of breath initially started, it 1st felt like he was just having trouble catching his breath. Now, at the time of his presentation to the emergency room, he cannot even take a deep breath without feeling quite winded. He gave no associated complaints of chest pain, lightheadedness, dizziness, palpitations, or syncope. Further complicating matters is that his has noticed that he has gained about 5 lb in the last 4 days in association with his respiratory issues. He reports compliance with his medications as well. He also reports that the symptoms seem to be somewhat similar to what it he has had in the past with problems related to volume overload. Workup and evaluation emergency room demonstrated the patient to be hemodynamically stable but clearly quite short of breath. His exam was significant for significant lower extremity edema and his chest x-ray showed widespread bilateral airspace disease which may represent edema or pneumonia. Routine blood test demonstrated elevated BNP mildly elevated troponin, and EKG did not show any ischemic changes. Chemistry was significant for a mildly elevated BUN and creatinine above his baseline as well. Given his constellation of symptoms as well as th
--- NOTE | 2021-10-02 12:47 | P.CONNP_ITS ---
Assessment and Plan Assessment and plan (1) JUANITA (acute kidney injury): Code(s): N17.9 - Acute kidney failure, unspecified Status: Acute Assessment and Plan: * creatinine up to 2.3mg/dl on admission * in spite of diuresis, renal function stable if not slightly improving * due to CHF versus pneumonia versus combination of both(?) * check renal ultrasound and CPK * check urine electrolytes (but in the context of diuresis, interpretation may be difficult) * follow repeat labs and UOP (2) Stage 3b chronic kidney disease: Code(s): N18.32 - Chronic kidney disease, stage 3b Status: Acute Assessment and Plan: * baseline creatinine runs around 1.5 - 2.0mg/dl in the last year * due to diabetes and hypertension with associated proteinuria (3) Acute on chronic heart failure with preserved ejection fraction: Code(s): I50.33 - Acute on chronic diastolic (congestive) heart failure Status: Acute Assessment and Plan: * likely precipitated by several issues: * JUANITA on CKD * uncontrolled HTN * MARY * pneumonia * clinically improving with diuresis * follow I/Os, daily weights, and respiratory status * Cardiology following (4) PNA (pneumonia): Code(s): J18.9 - Pneumonia, unspecified organism Status: Acute Assessment and Plan: * admission CXR suggestive of this along with pulmonary vascular congestion * fever, wheezing and worseing SOB prior to admission * follow culture data * on antibiotics * supplemental oxygen as needed (5) Hypertension: Code(s): I10 - Essential (primary) hypertension Status: Chronic Assessment and Plan: * reasonable control at this time * follow trend of hemodynamics (6) Type 2 diabetes mellitus: Code(s): E11.9 - Type 2 diabetes mellitus without complications Status: Chronic Assessment and Plan: * follow accuchecks * glycemic control Long and extensive discussion (> 20 minutes) with patient and his and daughter at bedside regarding his renal dysfunction and plan of care as outlined above. They appeared to voice understanding. Will continue to follow. History of Present Illness Reason for Consult Consult date: 10/02/21 Reason for consult: acute renal failure (on chronic kidney disease) Chief Complaint Chief complaint: CHF Exac History of Present Illness Narrative: The patient is a 75-year-old male with a past medical history as outlined below who presented to [facility] Emergency room with complaints of shortness of breath The patient states that shortness of breath has been going on for the last 3 da ys but has been persistently getting worse up until the day of his presentation to the ER. When the shortness of breath initially started, it 1st felt like he was just having trouble catching his breath. Now, at the time of his presentation to the emergency room, he cannot even take a deep breath without feeling quite winded. He gave no associated complaints of chest pain, lightheadedness, dizziness, palpitations, or syncope. Further complicating matters is that his has noticed that he has gained about 5 lb in the last 4 days in association with his respiratory issues. He reports compliance with his medications as well. He also reports that the symptoms seem to be somewhat similar to what it he has had in the past with problems related to volume overload. Workup and evaluation emergency room demonstrated the patient to be hemodynamically stable but clearly quite short of breath. His exam was
[2021-10-02 16:33] LABS: Glucose Point of Care 190 mg/dl (65-105)
[2021-10-02 21:14] LABS: Glucose Point of Care 118 mg/dl (65-105)
[2021-10-03] VITALS (17 sets, daily range): BP systolic 131–141; BP diastolic 58–67; PULSE 65–83; RESP 20–24; TEMP 36.7–38.1; O2SAT 90–97
[2021-10-03 05:25] LABS: Albumin Level 3.2 g/dL (3.5-5.1); Anion Gap 6 mmol/L (8-16); Blood Urea Nitrogen 50 mg/dL (9-20); Calcium 8.3 mg/dL (8.4-10.2); Carbon Dioxide 26 mmol/L (22-30); Chloride 103 mmol/L (98-107); Estimated CRCL calculation 33 ml/min; Estimated Glomerular Filt Rate 29; Glucose 139 mg/dL (65-110); Potassium 3.5 mmol/L (3.4-5.0); Sodium 135 mmol/L (137-145)
[2021-10-03 07:51] LABS: Glucose Point of Care 145 mg/dl (65-105)
[2021-10-03] MEDS: NEBIVOLOL HCL 5 MG TABLET 20 MG PO (09:37)
[2021-10-03] MEDS: hydrALAZINE HCL 50 MG TABLET PO ×3 (09:37→18:29)
[2021-10-03] MEDS: ENOXAPARIN 30 MG/0.3 ML SYRINGE SUB-Q (09:37)
[2021-10-03] MEDS: CHOLECALCIFEROL 400 UNITS TABLET (VIT D) PO (09:38)
[2021-10-03] MEDS: TERAZOSIN HCL 5 MG CAPSULE 10 MG PO (09:38)
[2021-10-03] MEDS: CLOPIDOGREL BISULFATE 75 MG TABLET PO (09:38)
[2021-10-03] MEDS: lisinopriL 20 MG TABLET PO ×2 (09:38→21:03)
[2021-10-03] MEDS: amLODIPine BESYLATE 5 MG TABLET 10 MG PO (09:38)
[2021-10-03] MEDS: PANTOPRAZOLE 40 MG TABLET PO (09:39)
[2021-10-03] MEDS: FINASTERIDE 5 MG TABLET PO (09:39)
[2021-10-03] MEDS: allopurinoL 300 MG TABLET PO (09:39)
[2021-10-03] MEDS: ASPIRIN 81 MG ENTERIC TABLET PO (09:39)
[2021-10-03] MEDS: MULTIVITAMINS THERAPEUTIC TAB (*BKC) 1 TABLET PO (09:39)
[2021-10-03] MEDS: ROSUVASTATIN 10 MG TABLET PO (09:39)
--- NOTE | 2021-10-03 10:18 | PM.PNCARD ---
Progress Note: A&P Assessment and Plan (1) Acute on chronic heart failure with preserved ejection fraction: Code(s): I50.33 - Acute on chronic diastolic (congestive) heart failure <ROSINA Marinelli - Last Filed: 10/03/21 12:27> Status: Acute <ROSINA Marinelli - Last Filed: 10/03/21 12:27> Assessment and Plan: Acute on chronic heart failure with preserved ejection fraction multifactorial secondary to acute on chronic renal failure, uncontrolled hypertension, underlying CAD, MARY, possible underlying pneumonia with sepsis. Improving. Accurate input and output daily weight Low sodium diet CHF counseling Home O2 eval prior to discharge. <ROSINA Marinelli - Last Filed: 10/03/21 12:27> (2) CAD (coronary artery disease): Code(s): I25.10 - Atherosclerotic heart disease of [place] coronary artery without angina pectoris <ROSINA Marinelli - Last Filed: 10/03/21 12:27> Status: Acute <ROSINA Marinelli - Last Filed: 10/03/21 12:27> Assessment and Plan: Mild flat troponin elevation without ischemic symptoms or acute EKG changes. Repeat troponin for trend. Most likely secondary to acute on chronic renal failure and CHF. Recent stent implantation to mid LAD. Must continue dual antiplatelet therapy without interruption. Follow H&H. No indication for ischemic evaluation at this time. <ROSINA Marinelli - Last Filed: 10/03/21 12:27> (3) Hypertension associated with chronic kidney disease due to type 2 diabetes mellitus: Code(s): E11.22 - Type 2 diabetes mellitus with diabetic chronic kidney disease; I12.9 - Hypertensive chronic kidney disease with stage 1 through stage 4 chronic kidney disease, or unspecified chronic kidney disease <ROSINA Marinelli - Last Filed: 10/03/21 12:27> Status: Acute <ROSINA Marinelli - Last Filed: 10/03/21 12:27> Assessment and Plan: Fair but not ideal control. Further up titration of antihypertensives as appropriate. <ROSINA Marinelli - Last Filed: 10/03/21 12:27> (4) Acute kidney injury superimposed on chronic kidney disease: Code(s): N17.9 - Acute kidney failure, unspecified; N18.9 - Chronic kidney disease, unspecified <ROSINA Marinelli - Last Filed: 10/03/21 12:27> Status: Acute <ROSINA Marinelli - Last Filed: 10/03/21 12:27> Assessment and Plan: Continue IV diuresis. Monitor renal function electrolytes closely. Stable thus far and tolerating IV diuresis. Accurate input and output, daily weight. Nephrology consultation. <ROSINA Marinelli - Last Filed: 10/03/21 12:27> (5) PNA (pneumonia): Code(s): J18.9 - Pneumonia, unspecified organism <ROSINA Marinelli - Last Filed: 10/03/21 12:27> Status: Acute <ROSINA Marinelli - Last Filed: 10/03/21 12:27> Assessment and Plan: Patient reported fever with wheezing and worsening shortness of breath and fatigue prior to admission. Chest x-ray suggested pulmonary vascular congestion possible pneumonia. Management Per primary service. IV antibiotics. O2 supplementation, bronchodilator therapy as appropriate. <ROSINA Marinelli - Last Filed: 10/03/21 12:27> (6) Elevated troponin: Code(s): R77.8 - Other specified abnormalities of plasma proteins <ROSINA Marinelli - Last Filed: 10/03/21 12:27> Status: Acute <ROSINA Marinelli - Last Filed: 10/03/21 12:27> Assessment and Plan: As above. Most likely type 2 infarction not secondary to acute coronary syndrome and/or plaque rupture. <ROSINA Marinelli - Last Filed: 10/03/21 12:27> (7) MARY on CPAP: Code(s): G47.33 - Obstructive sleep apnea (adult) (pediatric); Z99.89 - Dependence on other enabling machines and devices <ROSINA Marinelli - Last Filed: 10/03/21 12:27> Status: Acute <ROSINA Marinelli - Last Filed: 10/03/21 12:27> Assessment an
[2021-10-03 12:05] LABS: Glucose Point of Care 224 mg/dl (65-105)
[2021-10-03] MEDS: INSULIN ASPART (*BKC) 100 UNITS/ML SUB-Q (12:52)
--- NOTE | 2021-10-03 13:29 | P.PNNP_ITS ---
Progress Note: A&P Assessment and Plan (1) JUANITA (acute kidney injury): Code(s): N17.9 - Acute kidney failure, unspecified Status: Acute Assessment and Plan: * creatinine up to 2.3mg/dl on admission * in spite of diuresis, renal function stable if not slightly improving * due to CHF versus pneumonia versus combination of both(?) * follow-up on renal ultrasound and CPK * check urine electrolytes (but in the context of diuresis, interpretation may be difficult) * follow repeat labs and UOP (2) Stage 3b chronic kidney disease: Code(s): N18.32 - Chronic kidney disease, stage 3b Status: Acute Assessment and Plan: * baseline creatinine runs around 1.5 - 2.0mg/dl in the last year * due to diabetes and hypertension with associated proteinuria (3) Acute on chronic heart failure with preserved ejection fraction: Code(s): I50.33 - Acute on chronic diastolic (congestive) heart failure Status: Acute Assessment and Plan: * likely precipitated by several issues: * JUANITA on CKD * uncontrolled HTN * MARY * pneumonia * clinically improving with diuresis * follow I/Os, daily weights, and respiratory status * Cardiology following (4) PNA (pneumonia): Code(s): J18.9 - Pneumonia, unspecified organism Status: Acute Assessment and Plan: * admission CXR suggestive of this along with pulmonary vascular congestion * fever, wheezing and worseing SOB prior to admission * follow culture data * on antibiotics * supplemental oxygen as needed (5) Hypertension: Code(s): I10 - Essential (primary) hypertension Status: Chronic Assessment and Plan: * reasonable control at this time * follow trend of hemodynamics (6) Type 2 diabetes mellitus: Code(s): E11.9 - Type 2 diabetes mellitus without complications Status: Chronic Assessment and Plan: * follow accuchecks * glycemic control Will continue to follow. Subjective Date/time seen: 10/03/21 13:29 Sleeping comfortably at the time of my visit; no reported issues/events overnight or earlier this morning; breathing/respiratory status as well as swelling/edema continue improve/stabilize with current interventions; no apparent distress voiced. Exam Narrative: General: WD/WN male in NAD Heart: normal S1 and S2; no rub Lungs: faint crackles at the bases Abdomen: soft, nontender, nondistended, positive bowel sounds Extremities: no cyanosis or clubbing; no edema Skin: warm and dry Objective Data Vital Signs Vital Signs: Vital Signs Temp Pulse Resp BP Pulse Ox O2 Del Method O2 Flow Rate 10/03/21 12:16 37.0 C 71 20 133/58 L 97 10/03/21 12:09 75 10/03/21 10:00 75 10/03/21 08:00 75 10/03/21 08:00 37.3 C 73 22 H 132/65 96 10/03/21 06:08 96 CPAP 10/03/21 02:08 97 CPAP 10/03/21 06:00 67 10/03/21 04:00 36.7 C 71 20 141/58 H 94 10/03/21 04:00 72 10/03/21 03:59 BiPAP 10/03/21 02:00 74 10/02/21 22:50 96 CPAP 10/03/21 00:00 37.3 C 70 20 131/59 L 92 10/03/21 00:00 65 10/02/21 22:00 67 10/03/21 00:00 94 BiPAP 10/02/21 20:00 65 10/02/21 20:00 96 2 0
--- NOTE | 2021-10-03 13:29 | PM.PNNEP ---
Progress Note: A&P Assessment and Plan (1) JUANITA (acute kidney injury): Code(s): N17.9 - Acute kidney failure, unspecified Status: Acute Assessment and Plan: creatinine up to 2.3mg/dl on admission in spite of diuresis, renal function stable if not slightly improving due to CHF versus pneumonia versus combination of both(?) follow-up on renal ultrasound and CPK check urine electrolytes (but in the context of diuresis, interpretation may be difficult) follow repeat labs and UOP (2) Stage 3b chronic kidney disease: Code(s): N18.32 - Chronic kidney disease, stage 3b Status: Acute Assessment and Plan: baseline creatinine runs around 1.5 - 2.0mg/dl in the last year due to diabetes and hypertension with associated proteinuria (3) Acute on chronic heart failure with preserved ejection fraction: Code(s): I50.33 - Acute on chronic diastolic (congestive) heart failure Status: Acute Assessment and Plan: likely precipitated by several issues: JUANITA on CKD uncontrolled HTN MARY pneumonia clinically improving with diuresis follow I/Os, daily weights, and respiratory status Cardiology following (4) PNA (pneumonia): Code(s): J18.9 - Pneumonia, unspecified organism Status: Acute Assessment and Plan: admission CXR suggestive of this along with pulmonary vascular congestion fever, wheezing and worseing SOB prior to admission follow culture data on antibiotics supplemental oxygen as needed (5) Hypertension: Code(s): I10 - Essential (primary) hypertension Status: Chronic Assessment and Plan: reasonable control at this time follow trend of hemodynamics (6) Type 2 diabetes mellitus: Code(s): E11.9 - Type 2 diabetes mellitus without complications Status: Chronic Assessment and Plan: follow accuchecks glycemic control Will continue to follow. Subjective Date/time seen: 10/03/21 13:29 Sleeping comfortably at the time of my visit; no reported issues/events overnight or earlier this morning; breathing/respiratory status as well as swelling/edema continue improve/stabilize with current interventions; no apparent distress voiced. Exam Narrative: General: WD/WN male in NAD Heart: normal S1 and S2; no rub Lungs: faint crackles at the bases Abdomen: soft, nontender, nondistended, positive bowel sounds Extremities: no cyanosis or clubbing; no edema Skin: warm and dry Objective Data Vital Signs Vital Signs: Vital Signs Temp Pulse Resp BP Pulse Ox O2 Del Method O2 Flow Rate 10/03/21 12:16 37.0 C 71 20 133/58 L 97 10/03/21 12:09 75 10/03/21 10:00 75 10/03/21 08:00 75 10/03/21 08:00 37.3 C 73 22 H 132/65 96 10/03/21 06:08 96 CPAP 10/03/21 02:08 97 CPAP 10/03/21 06:00 67 10/03/21 04:00 36.7 C 71 20 141/58 H 94 10/03/21 04:00 72 10/03/21 03:59 BiPAP 10/03/21 02:00 74 10/02/21 22:50 96 CPAP 10/03/21 00:00 37.3 C 70 20 131/59 L 92 10/03/21 00:00 65 10/02/21 22:00 67 10/03/21 00:00 94 BiPAP 10/02/21 20:00 65 10/02/21 20:00 96 2 10/02/21 20:52 93 Nasal Cannula 2 10/02/21 20:00 37.4 C 77 16 135/57 L 94 10/02/21 18:00 74 Intake/Output Intake/Output: Intake & Output 09/30/21 10/01/21 10/02/21 10/03/21 23:59 23:59 23:59 23:59 Intake Total 720 1660 1320 1200 Output Total 1000 2925 1700 1250 Balance -280 -1265 -380 -50 Meds/Results Medications: Active Medications Generic Name Dose Route Start Last Admin Trade Name Jerri PRN Reason Stop Dose Admin Allopurinol 300 mg 10/01/21 09:00 10/03/21 09:39 Allopurinol 300 Mg Tablet PO 300 mg DAILY CHAYITO Administration Amlodipine Besylate 10 mg 10/01/21 09:00 10/03/21 09:38 Amlodipine Besylate 5 Mg Tablet PO 10 mg QAM [facility] Administrati
--- NOTE | 2021-10-03 17:14 | PM.IMPN ---
Progress Note: A&P Assessment and Plan (1) Acute kidney injury superimposed on chronic kidney disease: Code(s): N17.9 - Acute kidney failure, unspecified; N18.9 - Chronic kidney disease, unspecified Status: Acute (2) Acute exacerbation of CHF (congestive heart failure): Code(s): I50.9 - Heart failure, unspecified Status: Acute (3) Elevated troponin: Code(s): R77.8 - Other specified abnormalities of plasma proteins Status: Acute (4) Obesity, Class III, BMI 40-49.9 (morbid obesity): Code(s): E66.01 - Morbid (severe) obesity due to excess calories Status: Acute (5) Low back pain: Code(s): M54.50 - Low back pain, unspecified Status: Acute (6) Leg weakness, bilateral: Code(s): R29.898 - Other symptoms and signs involving the musculoskeletal system Status: Acute (7) Neuropathy: Code(s): G62.9 - Polyneuropathy, unspecified Status: Acute (8) Diabetes: Code(s): E11.9 - Type 2 diabetes mellitus without complications Status: Acute (9) BPH (benign prostatic hyperplasia): Code(s): N40.0 - Benign prostatic hyperplasia without lower urinary tract symptoms Status: Acute (10) Chronic GERD: Code(s): K21.9 - Gastro-esophageal reflux disease without esophagitis Status: Acute (11) MARY on CPAP: Code(s): G47.33 - Obstructive sleep apnea (adult) (pediatric); Z99.89 - Dependence on other enabling machines and devices Status: Acute (12) HTN (hypertension): Code(s): I10 - Essential (primary) hypertension Status: Acute (13) Hypercholesterolemia: Code(s): E78.00 - Pure hypercholesterolemia, unspecified Status: Acute (14) CAD (coronary artery disease): Code(s): I25.10 - Atherosclerotic heart disease of [place] coronary artery without angina pectoris Status: Acute (15) S/P AVR: Code(s): Z95.2 - Presence of prosthetic heart valve Status: Acute (16) PNA (pneumonia): Code(s): J18.9 - Pneumonia, unspecified organism Status: Acute (17) Sepsis: Code(s): A41.9 - Sepsis, unspecified organism Status: Acute Plan 6/1/22 Patient admitted to step-down bipap PRN CPAP from home lasix covering for PNA pt febrile at time of admission blood cultures pending procalcitonin ordered supportive care c/s cardio c/s nephro 10/02/21 pt febrile tachy w leukocytosis on admission meeting criteria for sepsis further workup shows pt w negative procal but CXR w possible PNA. Atypical pneumonias frequently do not correlate w procal level. will cont to treat as PNA w sepsis POA and follow closely viral panel sent as well as atypical PNA labs CHF per Cardio Nephro consulted for renal failure stable w lasix 80mg BID but suspect that it might be beneficial to reduce dose now that pt is improving. defer to cardio and nephro 10/03/2021 Patient remains on ceftriaxone azithromycin Renal function is stable Patient is afebrile since 10/01/2021 Blood pressure near goal Continuing diuresis Nephro cardiology following recommendations appreciated continue current care Subjective Date/time seen: 10/03/21 17:14 Patient doing okay sitting up in chair states that he is feeling a lot better remains on oxygen 3 L does not use any at home but denies any shortness of breath or other complaints Exam Narrative: Constitutional: well-nourished in no acute distress. Patient is alert and oriented x3 HEENT: Moist mucous membranes. No scleral icterus. No lymphadenopathy. Neck: No carotid bruits noted no JVD noted Lungs: better air movement no wheezing bibasilar crackle Cardiovascular: regular rate and rhythm. S1-S2 Abdomen: Soft, round, and nontender. No palpable masses. Extremities: 2+ pitting edema noted bilateral lower extremities. Nontender. Skin: No rashes or lesions. Warm and dry. Skin is intact. Neurological: No focal neurological de
[2021-10-03 17:17] LABS: Glucose Point of Care 183 mg/dl (65-105)
[2021-10-03 19:00] LABS: Sodium Urine Random 24 meq/L
[2021-10-03 19:24] LABS: Eosinophil Urine None Seen % (None Seen)
[2021-10-03 20:23] LABS: Glucose Point of Care 192 mg/dl (65-105)
[2021-10-04] VITALS (19 sets, daily range): BP systolic 127–149; BP diastolic 55–88; PULSE 67–88; RESP 20–22; TEMP 36.3–37.5; O2SAT 90–99
[2021-10-04 05:13] LABS: Albumin Level 2.9 g/dL (3.5-5.1); Anion Gap 6 mmol/L (8-16); Blood Urea Nitrogen 53 mg/dL (9-20); Calcium 8.1 mg/dL (8.4-10.2); Carbon Dioxide 28 mmol/L (22-30); Chloride 103 mmol/L (98-107); Creatine Kinase 143 U/L (55-170); Estimated CRCL calculation 32 ml/min; Estimated Glomerular Filt Rate 28; Glucose 131 mg/dL (65-110); Phosphorus 4.7 mg/dL (2.5-4.5); Potassium 3.7 mmol/L (3.4-5.0); Sodium 137 mmol/L (137-145)
[2021-10-04 07:32] LABS: Glucose Point of Care 134 mg/dl (65-105)
[2021-10-04] MEDS: TERAZOSIN HCL 5 MG CAPSULE 10 MG PO (08:48)
[2021-10-04] MEDS: ENOXAPARIN 30 MG/0.3 ML SYRINGE SUB-Q (08:48)
[2021-10-04] MEDS: PANTOPRAZOLE 40 MG TABLET PO (08:49)
[2021-10-04] MEDS: MULTIVITAMINS THERAPEUTIC TAB (*BKC) 1 TABLET PO (08:49)
[2021-10-04] MEDS: hydrALAZINE HCL 50 MG TABLET PO ×3 (08:49→17:55)
[2021-10-04] MEDS: NEBIVOLOL HCL 5 MG TABLET 20 MG PO (08:49)
[2021-10-04] MEDS: ROSUVASTATIN 10 MG TABLET PO (08:49)
[2021-10-04] MEDS: ASPIRIN 81 MG ENTERIC TABLET PO (08:49)
[2021-10-04] MEDS: amLODIPine BESYLATE 5 MG TABLET 10 MG PO (08:49)
[2021-10-04] MEDS: CLOPIDOGREL BISULFATE 75 MG TABLET PO (08:49)
[2021-10-04] MEDS: CHOLECALCIFEROL 400 UNITS TABLET (VIT D) PO (08:50)
[2021-10-04] MEDS: allopurinoL 300 MG TABLET PO (08:50)
[2021-10-04] MEDS: lisinopriL 20 MG TABLET PO ×2 (08:50→21:14)
[2021-10-04] MEDS: FINASTERIDE 5 MG TABLET PO (08:50)
--- NOTE | 2021-10-04 10:07 | PM.PNNEP ---
Progress Note: A&P Assessment and Plan (1) JUANITA (acute kidney injury): Code(s): N17.9 - Acute kidney failure, unspecified Status: Acute Assessment and Plan: creatinine up to 2.3mg/dl on admission (and has stayed there) in spite of diuresis, renal function stable due to CHF versus pneumonia versus combination of both(?) evaluation noted: renal ultrasound normal urine electrolytes look prerenal (despite volume overloaded on admission) CPK normal urine eosinophils negative follow repeat labs and UOP (2) Stage 3b chronic kidney disease: Code(s): N18.32 - Chronic kidney disease, stage 3b Status: Acute Assessment and Plan: baseline creatinine runs around 1.5 - 2.0mg/dl in the last year due to diabetes and hypertension with associated proteinuria (3) Acute on chronic heart failure with preserved ejection fraction: Code(s): I50.33 - Acute on chronic diastolic (congestive) heart failure Status: Acute Assessment and Plan: likely precipitated by several issues: JUANITA on CKD uncontrolled HTN MARY pneumonia clinically improving with diuresis - to resume oral diuretics today(?) follow I/Os, daily weights, and respiratory status Cardiology following (4) PNA (pneumonia): Code(s): J18.9 - Pneumonia, unspecified organism Status: Acute Assessment and Plan: admission CXR suggestive of this along with pulmonary vascular congestion fever, wheezing and worseing SOB prior to admission follow culture data on antibiotics supplemental oxygen as needed (5) Hypertension: Code(s): I10 - Essential (primary) hypertension Status: Chronic Assessment and Plan: reasonable control at this time follow trend of hemodynamics (6) Type 2 diabetes mellitus: Code(s): E11.9 - Type 2 diabetes mellitus without complications Status: Chronic Assessment and Plan: follow accuchecks glycemic control Will continue to follow. Subjective Date/time seen: 10/04/21 10:07 Continues to make slow and steady improvement with regard to his breathing and swelling/edema; off supplemental oxygen and able to ambulate reasonably well without any further respiratory issues; no events overnight or earlier this morning. Exam Narrative: General: WD/WN male in NAD Heart: normal S1 and S2; no rub Lungs: decreased at bases Abdomen: soft, nontender, nondistended, positive bowel sounds Extremities: no cyanosis or clubbing; no edema Skin: warm and intact Objective Data Vital Signs Vital Signs: Vital Signs Temp Pulse Resp BP Pulse Ox O2 Del Method O2 Flow Rate 10/04/21 07:54 36.3 C L 75 20 144/59 H 91 10/04/21 05:01 70 CPAP 10/04/21 02:02 68 94 CPAP 10/03/21 22:10 75 95 CPAP 10/04/21 05:56 71 10/04/21 04:00 67 10/04/21 04:00 37.3 C 72 22 H 133/55 L 94 10/04/21 03:12 92 CPAP 2 10/04/21 01:59 68 10/03/21 22:00 93 CPAP 3 10/03/21 21:30 93 Nasal Cannula 2 10/04/21 00:00 75 10/04/21 00:00 93 CPAP 2 10/03/21 23:53 37.2 C 75 24 H 141/62 H 95 10/03/21 22:00 79 10/03/21 20:00 83 10/03/21 20:00 90 Room Air 10/03/21 20:00 38.1 C H 83 20 138/67 93 10/03/21 17:26 36.9 C 75 22 H 140/59 L 96 10/03/21 14:00 70 10/03/21 12:16 37.0 C 71 20 133/58 L 97 Intake/Output Intake/Output: Intake & Output 10/01/21 10/02/21 10/03/21 10/04/21 23:59 23:59 23:59 23:59 Intake Total 1660 1320 1680 240 Output Total 2925 1700 1600 950 Balance -1265 -380 80 -710 Meds/Results Medications: Active Medications Generic Name Dose Route Start Last Admin Trade Name Jerri PRN Reason Stop Dose Admin Allopurinol 300 mg 10/01/21 09:00 10/04/21 08:50 Allopurinol 300 Mg Tablet PO 300 mg DAILY CHAYITO Administration Amlodipine Besylate 10 mg 10/01/21 09:00 06
--- NOTE | 2021-10-04 10:07 | P.PNNP_ITS ---
Progress Note: A&P Assessment and Plan (1) JUANITA (acute kidney injury): Code(s): N17.9 - Acute kidney failure, unspecified Status: Acute Assessment and Plan: * creatinine up to 2.3mg/dl on admission (and has stayed there) * in spite of diuresis, renal function stable * due to CHF versus pneumonia versus combination of both(?) * evaluation noted: * renal ultrasound normal * urine electrolytes look prerenal (despite volume overloaded on admission) * CPK normal * urine eosinophils negative * follow repeat labs and UOP (2) Stage 3b chronic kidney disease: Code(s): N18.32 - Chronic kidney disease, stage 3b Status: Acute Assessment and Plan: * baseline creatinine runs around 1.5 - 2.0mg/dl in the last year * due to diabetes and hypertension with associated proteinuria (3) Acute on chronic heart failure with preserved ejection fraction: Code(s): I50.33 - Acute on chronic diastolic (congestive) heart failure Status: Acute Assessment and Plan: * likely precipitated by several issues: * JUANITA on CKD * uncontrolled HTN * MARY * pneumonia * clinically improving with diuresis - to resume oral diuretics today(?) * follow I/Os, daily weights, and respiratory status * Cardiology following (4) PNA (pneumonia): Code(s): J18.9 - Pneumonia, unspecified organism Status: Acute Assessment and Plan: * admission CXR suggestive of this along with pulmonary vascular congestion * fever, wheezing and worseing SOB prior to admission * follow culture data * on antibiotics * supplemental oxygen as needed (5) Hypertension: Code(s): I10 - Essential (primary) hypertension Status: Chronic Assessment and Plan: * reasonable control at this time * follow trend of hemodynamics (6) Type 2 diabetes mellitus: Code(s): E11.9 - Type 2 diabetes mellitus without complications Status: Chronic Assessment and Plan: * follow accuchecks * glycemic control Will continue to follow. Subjective Date/time seen: 10/04/21 10:07 Continues to make slow and steady improvement with regard to his breathing and swelling/edema; off supplemental oxygen and able to ambulate reasonably well without any further respiratory issues; no events overnight or earlier this morning. Exam Narrative: General: WD/WN male in NAD Heart: normal S1 and S2; no rub Lungs: decreased at bases Abdomen: soft, nontender, nondistended, positive bowel sounds Extremities: no cyanosis or clubbing; no edema Skin: warm and intact Objective Data Vital Signs Vital Signs: Vital Signs Temp Pulse Resp BP Pulse Ox O2 Del Method O2 Flow Rate 10/04/21 07:54 36.3 C L 75 20 144/59 H 91 10/04/21 05:01 70 CPAP 10/04/21 02:02 68 94 CPAP 10/03/21 22:10 75 95 CPAP 10/04/21 05:56 71 10/04/21 04:00 67 10/04/21 04:00 37.3 C 72 22 H 133/55 L 94 10/04/21 03:12 92 CPAP 2 10/04/21 01:59 68 10/03/21 22:00 93 CPAP 3 10/03/21 21:30 93 Nasal Cannula 2 10/04/21 00:00 75 10/04/21 00:00 93 CPAP 2 10/03/21 23:53 37.2 C 75 24 H 141/62 H 95 10/03/21 22:00 79 10/03/21 20:00 83 10/03/21 20:00 90
--- NOTE | 2021-10-04 11:04 | PM.PNCARD ---
Progress Note: A&P Assessment and Plan (1) Acute on chronic heart failure with preserved ejection fraction: Code(s): I50.33 - Acute on chronic diastolic (congestive) heart failure Status: Acute Assessment and Plan: Acute on chronic heart failure with preserved ejection fraction multifactorial secondary to acute on chronic renal failure, uncontrolled hypertension, underlying CAD, MARY, possible underlying pneumonia with sepsis. Improving. Home O2 eval prior to discharge. Patient has not been on a diuretic recently; will add torsemide [address] Chris would like to resume Bumex 2 mg b.i.d. on discharge. (2) CAD (coronary artery disease): Code(s): I25.10 - Atherosclerotic heart disease of [place] coronary artery without angina pectoris Status: Acute Assessment and Plan: Mild flat troponin elevation without ischemic symptoms or acute EKG changes. Most likely secondary to acute on chronic renal failure and CHF. Recent stent implantation to mid LAD. Must continue dual antiplatelet therapy without interruption. Follow H&H. No indication for ischemic evaluation at this time. (3) Hypertension associated with chronic kidney disease due to type 2 diabetes mellitus: Code(s): E11.22 - Type 2 diabetes mellitus with diabetic chronic kidney disease; I12.9 - Hypertensive chronic kidney disease with stage 1 through stage 4 chronic kidney disease, or unspecified chronic kidney disease Status: Acute Assessment and Plan: Fair but not ideal control. Further up titration of antihypertensives as appropriate. (4) Acute kidney injury superimposed on chronic kidney disease: Code(s): N17.9 - Acute kidney failure, unspecified; N18.9 - Chronic kidney disease, unspecified Status: Acute Assessment and Plan: Has not been on diuretic the lat couple of days; has LE edema. Will start torsemide 40 mg daily as per DR. Chris's note (60 mg seems too high a dose), convert back to Bumex on discharge. Monitor renal function electrolytes closely. Stable thus far though not at baseline. (5) PNA (pneumonia): Code(s): J18.9 - Pneumonia, unspecified organism Status: Acute Assessment and Plan: Management Per primary service. IV antibiotics. O2 supplementation, bronchodilator therapy as appropriate. Improving. (6) Elevated troponin: Code(s): R77.8 - Other specified abnormalities of plasma proteins Status: Acute Assessment and Plan: As above. Most likely type 2 infarction not secondary to acute coronary syndrome and/or plaque rupture. (7) S/P AVR: Code(s): Z95.2 - Presence of prosthetic heart valve Status: Acute Assessment and Plan: Stable, no acute issues. Subjective Date/time seen: 10/04/21 11:04 Interval history: Cardiology follow up for CHF, , elevated troponin 10/03/2021: Patient is feeling better today.? Less short of breath.? Swelling has improved significantly. ? Date of service 10/04/2021: Patient feels much better, exercise with physical therapy, and no LOCK, can walk to the bathroom. Sheikh catheter out. Currently not on any diuretics. On CPAP at night, now on room air this morning. Hopes to go home soon, perhaps tomorrow. Review of Systems Constitutional: Constitutional: Denies difficulty sleeping Eyes: Eyes: Reports no additional eye complaints ENT: Denies epistaxis Cardiovascular: Cardiovascular: Denies chest pain, Reports leg edema, Denies lightheadedness and Denies palpitations Comments: Patient thinks his edema is worse than admission, thinks it is better. Respiratory: Respiratory: Denies chest congestion and Denies dyspnea Gastrointestinal: Gastrointestinal: Denies abdominal pain Genitourinary: Genitourinary: Reports no additional male genitourinary complaints (Glad to have catheter out) Musculoskeletal: Musculoskeletal: Reports no additional musculoskeletal complaints Integumentary/[place]
[2021-10-04 12:17] LABS: Glucose Point of Care 177 mg/dl (65-105)
[2021-10-04] MEDS: TORSEMIDE 20 MG TABLET 40 MG PO (13:00)
--- NOTE | 2021-10-04 15:36 | PM.IMPN ---
Progress Note: A&P Assessment and Plan (1) Acute kidney injury superimposed on chronic kidney disease: Code(s): N17.9 - Acute kidney failure, unspecified; N18.9 - Chronic kidney disease, unspecified Status: Acute (2) Acute exacerbation of CHF (congestive heart failure): Code(s): I50.9 - Heart failure, unspecified Status: Acute (3) Elevated troponin: Code(s): R77.8 - Other specified abnormalities of plasma proteins Status: Acute (4) Obesity, Class III, BMI 40-49.9 (morbid obesity): Code(s): E66.01 - Morbid (severe) obesity due to excess calories Status: Acute (5) Low back pain: Code(s): M54.50 - Low back pain, unspecified Status: Acute (6) Leg weakness, bilateral: Code(s): R29.898 - Other symptoms and signs involving the musculoskeletal system Status: Acute (7) Neuropathy: Code(s): G62.9 - Polyneuropathy, unspecified Status: Acute (8) Diabetes: Code(s): E11.9 - Type 2 diabetes mellitus without complications Status: Acute (9) BPH (benign prostatic hyperplasia): Code(s): N40.0 - Benign prostatic hyperplasia without lower urinary tract symptoms Status: Acute (10) Chronic GERD: Code(s): K21.9 - Gastro-esophageal reflux disease without esophagitis Status: Acute (11) MARY on CPAP: Code(s): G47.33 - Obstructive sleep apnea (adult) (pediatric); Z99.89 - Dependence on other enabling machines and devices Status: Acute (12) HTN (hypertension): Code(s): I10 - Essential (primary) hypertension Status: Acute (13) Hypercholesterolemia: Code(s): E78.00 - Pure hypercholesterolemia, unspecified Status: Acute (14) CAD (coronary artery disease): Code(s): I25.10 - Atherosclerotic heart disease of [place] coronary artery without angina pectoris Status: Acute (15) S/P AVR: Code(s): Z95.2 - Presence of prosthetic heart valve Status: Acute (16) PNA (pneumonia): Code(s): J18.9 - Pneumonia, unspecified organism Status: Acute (17) Sepsis: Code(s): A41.9 - Sepsis, unspecified organism Status: Acute Plan 6/1/22 Patient admitted to step-down bipap PRN CPAP from home lasix covering for PNA pt febrile at time of admission blood cultures pending procalcitonin ordered supportive care c/s cardio c/s nephro 10/02/21 pt febrile tachy w leukocytosis on admission meeting criteria for sepsis further workup shows pt w negative procal but CXR w possible PNA. Atypical pneumonias frequently do not correlate w procal level. will cont to treat as PNA w sepsis POA and follow closely viral panel sent as well as atypical PNA labs CHF per Cardio Nephro consulted for renal failure stable w lasix 80mg BID but suspect that it might be beneficial to reduce dose now that pt is improving. defer to cardio and nephro 10/03/2021 Patient remains on ceftriaxone azithromycin Renal function is stable Patient is afebrile since 10/01/2021 Blood pressure near goal Continuing diuresis Nephro cardiology following recommendations appreciated continue current care 10/04/21 significantly improved cont abx x presumed atypical PNA restarted on diuretic by cardio cont current care dc planning anticipate dc tomorrow to home remain in IMU tonight Subjective Date/time seen: 10/04/21 15:36 pt doing ok feeling better on RA Exam Narrative: Constitutional: well-nourished in no acute distress. Patient is alert and oriented x3 HEENT: Moist mucous membranes. No scleral icterus. No lymphadenopathy. Neck: No carotid bruits noted no JVD noted Lungs: better air movement no wheezing Cardiovascular: regular rate and rhythm. S1-S2 Abdomen: Soft, round, and nontender. No palpable masses. Extremities: 1+ pitting edema noted bilateral lower extremities. Nontender. Skin: No rashes or lesions. Warm and dry. Skin is intact. Neurolog
[2021-10-04 16:11] LABS: Glucose Point of Care 153 mg/dl (65-105)
[2021-10-04 20:32] LABS: Glucose Point of Care 214 mg/dl (65-105)
[2021-10-05] VITALS (14 sets, daily range): BP systolic 129–147; BP diastolic 53–57; PULSE 62–82; RESP 12–22; TEMP 36.5–37.1; O2SAT 82–96
[2021-10-05 05:39] LABS: Basophils Percent Auto 0.5 % (0.2-1.2); Eosinophils Absolute Auto 0.3 K/mm3 (0-0.3); Eosinophils Percent Auto 2.9 % (0-4.4); Hemoglobin 9.5 g/dL (14.0-18.0); Immature Granulocyte Absolute 0.05 K/mm3 (0.00-0.031); Immature Granulocyte Percent A 0.6 % (0-0.5); Lymphocytes Absolute Auto 1.13 K/mm3 (0.9-3.2); Mean Corpuscular HGB Conc 31.7 g/dl (32-36); Mean Corpuscular Hemoglobin 28.8 pg (26-34); Mean Corpuscular Volume 90.9 fl (80-100); Mean Platelet Volume 10.4 fl (7.4-10.4); Monocytes Absolute Auto 0.7 K/mm3 (0.1-0.6); Monocytes Percent Auto 8.3 % (2.6-8.5); Neutrophils Absolute Auto 6.5 K/mm3 (1.3-6.7); Neutrophils Percent Auto 74.7 % (45.5-73.1); Platelet Count Result 367 k/mm3 (150-375); Red Cell Distribution Width 14.3 % (11.5-14.5); White Blood Count 8.7 K/mm3 (4.5-10.0)
[2021-10-05 07:09] LABS: Alanine Aminotransferase 82 U/L (6-50); Albumin Level 3.1 g/dL (3.5-5.1); Alkaline Phosphatase 89 U/L (38-126); Anion Gap 4 mmol/L (8-16); Aspartate Amino Transferase 94 U/L (17-59); Bilirubin,Total 0.4 mg/dL (0.2-1.3); Blood Urea Nitrogen 49 mg/dL (9-20); Calcium 8.4 mg/dL (8.4-10.2); Carbon Dioxide 28 mmol/L (22-30); Chloride 104 mmol/L (98-107); Estimated CRCL calculation 35 ml/min; Estimated Glomerular Filt Rate 31; Glucose 130 mg/dL (65-110); Magnesium 2.4 mg/dL (1.6-2.3); Phosphorus 4.6 mg/dL (2.5-4.5); Potassium 3.7 mmol/L (3.4-5.0); Sodium 136 mmol/L (137-145)
[2021-10-05 07:13] LABS: CRP 14.9 mg/dL (<1.0)
[2021-10-05] MEDS: TORSEMIDE 20 MG TABLET 40 MG PO (09:20)
[2021-10-05] MEDS: amLODIPine BESYLATE 5 MG TABLET 10 MG PO (09:20)
[2021-10-05] MEDS: NEBIVOLOL HCL 5 MG TABLET 20 MG PO (09:20)
[2021-10-05] MEDS: MULTIVITAMINS THERAPEUTIC TAB (*BKC) 1 TABLET PO (09:20)
[2021-10-05] MEDS: ASPIRIN 81 MG ENTERIC TABLET PO (09:21)
[2021-10-05] MEDS: TERAZOSIN HCL 5 MG CAPSULE 10 MG PO (09:21)
[2021-10-05] MEDS: lisinopriL 20 MG TABLET PO (09:21)
[2021-10-05] MEDS: ROSUVASTATIN 10 MG TABLET PO (09:21)
[2021-10-05] MEDS: allopurinoL 300 MG TABLET PO (09:21)
[2021-10-05] MEDS: ENOXAPARIN 30 MG/0.3 ML SYRINGE SUB-Q (09:21)
[2021-10-05] MEDS: FINASTERIDE 5 MG TABLET PO (09:21)
[2021-10-05] MEDS: hydrALAZINE HCL 50 MG TABLET PO ×2 (09:21→13:24)
[2021-10-05] MEDS: CLOPIDOGREL BISULFATE 75 MG TABLET PO (09:21)
[2021-10-05] MEDS: CHOLECALCIFEROL 400 UNITS TABLET (VIT D) PO (09:21)
[2021-10-05] MEDS: PANTOPRAZOLE 40 MG TABLET PO (09:21)
--- NOTE | 2021-10-05 12:13 | PM.PNCARD ---
Progress Note: A&P Assessment and Plan (1) Acute on chronic heart failure with preserved ejection fraction: Code(s): I50.33 - Acute on chronic diastolic (congestive) heart failure Status: Acute Assessment and Plan: Acute on chronic diastolic heart failure secondary to acute on chronic renal failure, uncontrolled hypertension, underlying CAD, MARY, possible underlying pneumonia with sepsis. Improving. Okay for discharge from my point of view Dr. Chris preferred patient resume his Bumex 2 mg b.i.d. on discharge Review daily weights, low-salt diet, keep legs elevated, compression stockings etc. Will arrange for outpatient follow-up in the near future (2) CAD (coronary artery disease): Code(s): I25.10 - Atherosclerotic heart disease of [place] coronary artery without angina pectoris Status: Acute Assessment and Plan: Mild flat troponin elevation without ischemic symptoms or acute EKG changes. Most likely secondary to acute on chronic renal failure and CHF. Recent stent implantation to mid LAD. Must continue dual antiplatelet therapy without interruption. (3) Hypertension associated with chronic kidney disease due to type 2 diabetes mellitus: Code(s): E11.22 - Type 2 diabetes mellitus with diabetic chronic kidney disease; I12.9 - Hypertensive chronic kidney disease with stage 1 through stage 4 chronic kidney disease, or unspecified chronic kidney disease Status: Acute Assessment and Plan: Reasonably controlled. (4) Acute kidney injury superimposed on chronic kidney disease: Code(s): N17.9 - Acute kidney failure, unspecified; N18.9 - Chronic kidney disease, unspecified Status: Acute Assessment and Plan: Taking torsemide 40 mg daily as per DR. Chris's note , convert back to Bumex on discharge. Renal function is drifting back to baseline. (5) PNA (pneumonia): Code(s): J18.9 - Pneumonia, unspecified organism Status: Acute Assessment and Plan: Improved (6) Elevated troponin: Code(s): R77.8 - Other specified abnormalities of plasma proteins Status: Acute Assessment and Plan: As above. Most likely type 2 infarction not secondary to acute coronary syndrome and/or plaque rupture. (7) S/P AVR: Code(s): Z95.2 - Presence of prosthetic heart valve Status: Acute Assessment and Plan: Stable, no acute issues. Subjective Date/time seen: DAte of SErvice: 10/05/2021 12:46 pm Interval history: Cardiology follow up for CHF, , elevated troponin 10/03/2021: Patient is feeling better today.? Less short of breath.? Swelling has improved significantly. ? Date of service 10/04/2021: Patient feels much better, exercise with physical therapy, and no LOCK, can walk to the bathroom. Sheikh catheter out. Currently not on any diuretics. On CPAP at night, now on room air this morning. Hopes to go home soon, perhaps tomorrow. 10/05/21 12:13: Doing well, walked down the [place] with physical therapy with no lightheadedness or shortness of breath. Making urine. Eager for discharge. Review of Systems Constitutional: Constitutional: Denies difficulty sleeping Eyes: Eyes: Reports no additional eye complaints ENT: Denies epistaxis Cardiovascular: Cardiovascular: Denies chest pain, Reports leg edema, Denies lightheadedness, Denies palpitations and Denies dyspnea Respiratory: Respiratory: Denies chest congestion and Denies dyspnea Gastrointestinal: Gastrointestinal: Denies abdominal pain Genitourinary: Genitourinary: Reports no additional male genitourinary complaints (Glad to have catheter out) Musculoskeletal: Musculoskeletal: Reports no additional musculoskeletal complaints Integumentary/Breasts: Skin/Breast: Denies rash Neurologic: Denies behavioral changes and Denies confusion Psychiatric: Psychiatric: Denies behavioral changes and Denies confusion Endocrine: Endocrine: Denies palpitations Exam C
--- NOTE | 2021-10-05 12:52 | PM.PNNEP ---
Progress Note: A&P Assessment and Plan (1) JUANITA (acute kidney injury): Code(s): N17.9 - Acute kidney failure, unspecified Status: Acute Assessment and Plan: creatinine up to 2.3mg/dl on admission in spite of diuresis, renal function relatively stable due to CHF versus pneumonia versus combination of both(?) evaluation noted: renal ultrasound normal urine electrolytes look prerenal (despite volume overloaded on admission) CPK normal urine eosinophils negative follow repeat labs and UOP (2) Stage 3b chronic kidney disease: Code(s): N18.32 - Chronic kidney disease, stage 3b Status: Acute Assessment and Plan: baseline creatinine runs around 1.5 - 2.0mg/dl in the last year due to diabetes and hypertension with associated proteinuria (3) Acute on chronic heart failure with preserved ejection fraction: Code(s): I50.33 - Acute on chronic diastolic (congestive) heart failure Status: Acute Assessment and Plan: likely precipitated by several issues: JUANITA on CKD uncontrolled HTN MARY pneumonia clinically improving with diuresis - on oral diuretics at this time follow I/Os, daily weights, and respiratory status Cardiology following (4) PNA (pneumonia): Code(s): J18.9 - Pneumonia, unspecified organism Status: Acute Assessment and Plan: admission CXR suggestive of this along with pulmonary vascular congestion fever, wheezing and worseing SOB prior to admission follow culture data on antibiotics weaned off supplemental oxygen (5) Hypertension: Code(s): I10 - Essential (primary) hypertension Status: Chronic Assessment and Plan: reasonable control at this time follow trend of hemodynamics (6) Type 2 diabetes mellitus: Code(s): E11.9 - Type 2 diabetes mellitus without complications Status: Chronic Assessment and Plan: follow accuchecks glycemic control Not opposed to discharge from renal perspective if otherwise medically stable - he can follow-up with Dr. Gill in clinic as scheduled. Will continue to follow. Subjective Date/time seen: 10/05/21 12:52 Appears to be doing quite well at the time of my visit; his breathing/respiratory status is stable if not better and his swelling/edema has improved as well; at bedside and we discussed the situation; no apparent issues/events overnight or earlier this AM; no distress voiced. Exam Narrative: General: WD/WN male in NAD Heart: normal S1 and S2; no rub Lungs: decreased at bases Abdomen: soft, nontender, nondistended, positive bowel sounds Extremities: no cyanosis or clubbing; no edema Skin: warm and intact Objective Data Vital Signs Vital Signs: Vital Signs Temp Pulse Resp BP Pulse Ox O2 Del Method O2 Flow Rate 10/05/21 12:00 36.5 C 66 12 129/53 L 94 10/05/21 10:00 62 10/05/21 07:44 37.1 C 69 18 138/57 L 95 10/05/21 06:00 67 10/05/21 04:00 71 10/05/21 04:00 37.0 C 71 22 H 147/57 H 93 10/05/21 03:21 94 CPAP 2 10/05/21 02:47 72 94 CPAP 10/05/21 02:00 76 10/04/21 23:25 74 91 CPAP 10/05/21 00:00 74 10/04/21 22:00 75 10/04/21 20:00 77 10/05/21 00:00 93 CPAP 2 10/04/21 23:33 37.3 C 79 22 H 138/68 94 10/04/21 20:00 Room Air 10/04/21 20:00 37.5 C 77 20 149/61 H 95 10/04/21 20:18 90 Room Air 10/04/21 18:00 88 10/04/21 16:32 36.6 C 74 20 127/88 96 Intake/Output Intake/Output: Intake & Output 10/02/21 10/03/21 10/04/21 10/05/21 23:59 23:59 23:59 23:59 Intake Total 1320 1680 1320 880 Output Total 1700 1600 950 Balance -380 80 370 880 Meds/Results Medications: Active Medications Generic Name Dose Route Start Last Admin Trade Name Freq PRN Reason Stop Dose Admin Allopurinol 300 mg 10/01/21 09:00 10/05/21 09:21 Allopurino
--- NOTE | 2021-10-05 12:52 | P.PNNP_ITS ---
Progress Note: A&P Assessment and Plan (1) JUANITA (acute kidney injury): Code(s): N17.9 - Acute kidney failure, unspecified Status: Acute Assessment and Plan: * creatinine up to 2.3mg/dl on admission * in spite of diuresis, renal function relatively stable * due to CHF versus pneumonia versus combination of both(?) * evaluation noted: * renal ultrasound normal * urine electrolytes look prerenal (despite volume overloaded on admission) * CPK normal * urine eosinophils negative * follow repeat labs and UOP (2) Stage 3b chronic kidney disease: Code(s): N18.32 - Chronic kidney disease, stage 3b Status: Acute Assessment and Plan: * baseline creatinine runs around 1.5 - 2.0mg/dl in the last year * due to diabetes and hypertension with associated proteinuria (3) Acute on chronic heart failure with preserved ejection fraction: Code(s): I50.33 - Acute on chronic diastolic (congestive) heart failure Status: Acute Assessment and Plan: * likely precipitated by several issues: * JUANITA on CKD * uncontrolled HTN * MARY * pneumonia * clinically improving with diuresis - on oral diuretics at this time * follow I/Os, daily weights, and respiratory status * Cardiology following (4) PNA (pneumonia): Code(s): J18.9 - Pneumonia, unspecified organism Status: Acute Assessment and Plan: * admission CXR suggestive of this along with pulmonary vascular congestion * fever, wheezing and worseing SOB prior to admission * follow culture data * on antibiotics * weaned off supplemental oxygen (5) Hypertension: Code(s): I10 - Essential (primary) hypertension Status: Chronic Assessment and Plan: * reasonable control at this time * follow trend of hemodynamics (6) Type 2 diabetes mellitus: Code(s): E11.9 - Type 2 diabetes mellitus without complications Status: Chronic Assessment and Plan: * follow accuchecks * glycemic control Not opposed to discharge from renal perspective if otherwise medically stable - he can follow-up with Dr. Gill in clinic as scheduled. Will continue to follow. Subjective Date/time seen: 10/05/21 12:52 Appears to be doing quite well at the time of my visit; his b reathing/respiratory status is stable if not better and his swelling/edema has improved as well; at bedside and we discussed the situation; no apparent issues/events overnight or earlier this AM; no distress voiced. Exam Narrative: General: WD/WN male in NAD Heart: normal S1 and S2; no rub Lungs: decreased at bases Abdomen: soft, nontender, nondistended, positive bowel sounds Extremities: no cyanosis or clubbing; no edema Skin: warm and intact Objective Data Vital Signs Vital Signs: Vital Signs Temp Pulse Resp BP Pulse Ox O2 Del Method O2 Flow Rate 10/05/21 12:00 36.5 C 66 12 129/53 L 94 10/05/21 10:00 62 10/05/21 07:44 37.1 C 69 18 138/57 L 95 10/05/21 06:00 67 10/05/21 04:00 71 10/05/21 04:00 37.0 C 71 22 H 147/57 H 93 10/05/21 03:21 94 CPAP 2 10/05/21 02:47 72 94 CPAP 10/05/21 02:00 76 10/04/21 23:25 74 91 CPAP 10/05/21 00:00 74 10/04/21 22:00 75 10/04/21 20:00 77
--- NOTE | 2021-10-05 13:16 | PM.DS ---
DS: Admitting Diagnosis Discharge Date 10/05/21 Admitting Diagnosis (1) Acute exacerbation of CHF (congestive heart failure): ?Code(s): I50.9 - Heart failure, unspecified ?Status:?Acute ?Assessment and Plan: (2) Acute kidney injury superimposed on chronic kidney disease: ?Code(s): N17.9 - Acute kidney failure, unspecified; N18.9 - Chronic kidney disease, unspecified ?Status:?Acute ?Assessment and Plan: (3) HTN (hypertension): ?Code(s): I10 - Essential (primary) hypertension ?Status:?Acute ?Assessment and Plan: (4) Diabetes: ?Code(s): E11.9 - Type 2 diabetes mellitus without complications ?Status:?Acute ?Assessment and Plan: ? DS: Discharge Diagnosis Discharge Diagnosis (1) Acute kidney injury superimposed on chronic kidney disease: Code(s): N17.9 - Acute kidney failure, unspecified; N18.9 - Chronic kidney disease, unspecified Status: Acute (2) Acute exacerbation of CHF (congestive heart failure): Code(s): I50.9 - Heart failure, unspecified Status: Acute (3) Elevated troponin: Code(s): R77.8 - Other specified abnormalities of plasma proteins Status: Acute (4) Obesity, Class III, BMI 40-49.9 (morbid obesity): Code(s): E66.01 - Morbid (severe) obesity due to excess calories Status: Acute (5) Low back pain: Code(s): M54.50 - Low back pain, unspecified Status: Acute (6) Leg weakness, bilateral: Code(s): R29.898 - Other symptoms and signs involving the musculoskeletal system Status: Acute (7) Neuropathy: Code(s): G62.9 - Polyneuropathy, unspecified Status: Acute (8) Diabetes: Code(s): E11.9 - Type 2 diabetes mellitus without complications Status: Acute (9) BPH (benign prostatic hyperplasia): Code(s): N40.0 - Benign prostatic hyperplasia without lower urinary tract symptoms Status: Acute (10) Chronic GERD: Code(s): K21.9 - Gastro-esophageal reflux disease without esophagitis Status: Acute (11) MARY on CPAP: Code(s): G47.33 - Obstructive sleep apnea (adult) (pediatric); Z99.89 - Dependence on other enabling machines and devices Status: Acute (12) HTN (hypertension): Code(s): I10 - Essential (primary) hypertension Status: Acute (13) Hypercholesterolemia: Code(s): E78.00 - Pure hypercholesterolemia, unspecified Status: Acute (14) CAD (coronary artery disease): Code(s): I25.10 - Atherosclerotic heart disease of [place] coronary artery without angina pectoris Status: Acute (15) S/P AVR: Code(s): Z95.2 - Presence of prosthetic heart valve Status: Acute (16) PNA (pneumonia): Code(s): J18.9 - Pneumonia, unspecified organism Status: Acute (17) Sepsis: Code(s): A41.9 - Sepsis, unspecified organism Status: Acute DS: Summary Hospital Course Reason for hospitalization: Shortness of breath Hospital Course: ?09/30/21 patient has an ejection fraction of approximately 57%.? Patient does have impaired diastolic relaxation with grade 1 diastolic dysfunction.? Patient states he has gained 5 lb last 4 days.? Will diurese patient with IV Lasix and continue to monitor intake and output very closely.? Will have daily weights.? May need to consult Cardiology for any further recommendations. ? Most likely secondary to cardiorenal syndrome.? Will diurese patient and continue monitor BUN and creatinine. ? Will resume patient's home medications once verified home medication list and adjust medications accordingly for optimal blood pressure control. Will resume home patient's home if possible medications once we have verified medication list.? Will have blood glucose monitoring before meals and at bedtime with sliding scale insulin available.Will resume home patient's home if possible medications once we have verified medication list.? Will have blood glucose monitoring
[2021-10-05 13:34] LABS: Glucose Point of Care 140 mg/dl (65-105)
--- NOTE | 2021-10-05 15:23 | PCRCNOTE ---
Home Oxygen Evaluation RC: Home Oxygen (O2) Evaluation Start: 10/05/21 15:05 Freq: Status: Active Protocol: RPE Activity Type Activity Date Activity User E-sign Co-sign Detail Recorded Client Recorded Date Recorded By Document 10/05/21 14:33 CHAI [email or web address] 10/05/21 15:11 CHAI Document 10/05/21 14:40 CHAI [email or web address] 10/05/21 15:11 CHAI Document 10/05/21 14:45 CHAI [email or web address] 10/05/21 15:11 CHAI Document 10/05/21 14:50 CHAI [email or web address] 10/05/21 15:12 CHAI Document 10/05/21 14:30 CHAI [email or web address] 10/05/21 15:06 CHAI 10/05/21 10/05/21 10/05/21 14:33 14:40 14:45 Home O2 Evaluation Test Phase Exercise Exercise Exercise Oxygen Delivery Room Air Nasal Cannula Nasal Cannula Oxygen Flow Rate (L/min) 1 2 Pulse Oximetry (90-100 %) 82 L 87 L 94 Pulse Rate (60-100 beats/min) 78 82 73 Activity Tolerance Good Good Good Rating of Perceived Dyspnea (PD) +1 Mild, +2 Mild, Some +2 Mild, Some Noticeable to Difficulty, Difficulty, the Participant Noticeable to Noticeable to but Not to an the Observer the Observer Observer Ambulation Distance (feet) 60 100 150 Ambulation Distance (meters) 18.28 30.47 45.71 Home Oxygen Evaluation Comments Treatment Charges 10/05/21 10/05/21 14:50 14:30 Home O2 Evaluation Test Phase Resting Resting Oxygen Delivery Nasal Cannula Room Air Oxygen Flow Rate (L/min) 2 Pulse Oximetry (90-100 %) 96 93 Pulse Rate (60-100 beats/min) 72 67 Activity Tolerance Good Rating of Perceived Dyspnea (PD) Ambulation Distance (feet) Ambulation Distance (meters) Home Oxygen Evaluation Comments Mr Celeste required Oxygen at 2L NC with activity Treatment Charges O2 Evaluation - Inpatient
--- NOTE | 2021-10-05 15:54 | PCRCNOTE ---
Patient requires 2 liters O2 with activity. O2 set up with [facility] [phone]
--- NOTE | 2021-10-05 17:04 | PC.NURSE ---
Pt left off unit stable, with REVIEW MANAGER, family, and all personal belongings. Home o2 was delivered to hospital.
[2021-10-06 22:13] LABS: Legionella pneumophila Ag Ur Not Detected (Not Detected)
[2021-10-09 11:57] LABS: Chloride Rand Ur <20 mmol/L (32-290); Creatinine Random Urine 138 mg/dL (20-320)
== END 2021-10-05 16:36 | disposition home health service (06) | DRG 291 ==
LOC: ANHED 13:03 → ANHIMU 15:37
PROVIDERS: Internal Medicine; Internal Medicine Nephrology; Nurse Practitioner Adult Health; Admitting Provider Family Medicine; Emergency Provider Emergency Medicine; PCP Internal Medicine; Visit Provider Hospitalist
DX: I13.0 Hypertensive heart and chronic kidney disease with heart failure and stage 1 through stage 4 chronic kidney disease, or unspecified chronic kidney disease (principal); I50.33 Acute on chronic diastolic (congestive) heart failure; J18.9 Pneumonia, unspecified organism; N17.9 Acute kidney failure, unspecified; Z68.41 Body mass index [BMI] 40.0-44.9, adult; E66.01 Morbid (severe) obesity due to excess calories; E11.42 Type 2 diabetes mellitus with diabetic polyneuropathy; E11.22 Type 2 diabetes mellitus with diabetic chronic kidney disease; N18.32 Chronic kidney disease, stage 3b; Z20.822 Contact with and (suspected) exposure to COVID-19; N40.0 Benign prostatic hyperplasia without lower urinary tract symptoms; I25.10 Atherosclerotic heart disease of native coronary artery without angina pectoris; K21.9 Gastro-esophageal reflux disease without esophagitis; E11.69 Type 2 diabetes mellitus with other specified complication; E78.2 Mixed hyperlipidemia; E78.00 Pure hypercholesterolemia, unspecified; G47.33 Obstructive sleep apnea (adult) (pediatric); R77.8 Other specified abnormalities of plasma proteins; M54.50 Low back pain, unspecified; R29.898 Other symptoms and signs involving the musculoskeletal system; Z79.4 Long term (current) use of insulin; Z79.82 Long term (current) use of aspirin; Z87.891 Personal history of nicotine dependence; Z95.1 Presence of aortocoronary bypass graft; Z95.2 Presence of prosthetic heart valve; Z99.89 Dependence on other enabling machines and devices
CPT/HCPCS: 36415; 71046; 76775; 80053; 80069; 82436; 82550; 82570; 82948; 83735; 83880; 84100; 84145; 84300; 84484; 85025; 85610; 85730; 85999; 86140; 86738; 87040; 87449; 93005; 94002; 94618; 94640; 96365; 96367; 96368; 96372; 96375; 96376; 97110; 97161; 97165; 97530; 97535; 99285; A9270; C8929; C9803; G0378; J0131; J0456; J0696; J1650; J1815; J1940; Q9957; U0003; U0005

== ENCOUNTER 2021-10-11 21:45 | Inpatient (IN) | payer MEDICARE, SELFPAY ==
--- NOTE | ~2021-10-11 | XR_ITS ---
XR chest 1V portable 10/11/2021 22:04 Indication: Redness of breath with low oxygen saturations Procedure: AP portable chest Comparison: 09/30/2021 and 05/11/2017 Findings: Status post median sternotomy for CABG. There has been interval progression of diffuse bila teral airspace disease with more focal consolidation in the right mid thorax. No significant effusion or pneumothorax. No acute osseous abnormality. Impression: 1: Significant progression of diffuse bilateral airspace disease which may represent pneumonia and/or edema. Reviewed, dictated and finalized at location A. Impression: 1: Significant progression of diffuse bilateral airspace disease which may repr esent pneumonia and/or edema.
[2021-10-11 21:43] VITALS: PULSE 114; RESP 25; TEMP 38.8; O2SAT 88
--- NOTE | 2021-10-11 21:49 | ECG_ITS ---
Measurements Intervals [employer] Rate: 105 P: 0 VA: 167 QRS: 104 QRSD: 130 T: 0 QT: 355 QTc: 471 Interpretive Statements SINUS TACHYCARDIA WITH FREQUENT VENTRICULAR PREMATURE COMPLEXES POSSIBLE RIGHT VENTRICULAR HYPERTROPHY [SOME/ALL OF: PROMINENT R IN V1, LATE TRANSITION, RAD, STEPHON, SSS] IVCD ABNORMAL ECG COMPARED TO ECG 09/30/2021 10:57:13 SINUS TACHYCARDIA NOW PRESENT Electronically Signed On 10-12-2021 11:04:43 CDT by Zack Vásquez M.D.
--- NOTE | 2021-10-11 22:02 | ED.SOB ---
HPI - SOB/Dyspnea General Chief Complaint: Shortness of Breath/Dyspnea Stated Complaint: shortness of breath x days home O2 2L per nc Time Seen by Provider: 10/11/21 21:48 Source: patient History of Present Illness HPI Narrative: Patient presents with shortness of breath. Reports he was recently seen here for heart problems since discharge is had progressive shortness of breath today was worse than usual so he came to the ER for further evaluation. Patient ports he normally takes 2 L of oxygen cannula but he was satting in the low 80s EMS was contacted and they bumped him up to 4 L nasal cannula he continues satting in the high 80s they attempted DuoNeb therapies as well as Solu-Medrol patient has not noted any improvement in his symptoms. Patient is denying chest pain he thinks edema in his legs is worse. He also reports fever and cough. Related Data Home Medications Medication Instructions Recorded Confirmed amlodipine 5 mg tablet 10 mg PO QAM 04/14/19 10/12/21 aspirin 81 mg tablet,delayed 81 mg PO DAILY 04/14/19 10/12/21 release (Adult Aspirin Regimen) rosuvastatin 10 mg tablet 10 mg PO DAILY 04/14/19 10/12/21 multivitamin (Multiple Vitamins 1 tablet PO DAILY 06/28/19 10/12/21 tablet) alpha lipoic acid 600 mg capsule 600 mg PO DAILY 12/12/20 10/12/21 hydralazine 50 mg tablet 50 mg PO TID 12/12/20 10/12/21 insulin aspar prot-insulin aspart See Rx Instructions .Route .COMPLEX 12/12/20 10/12/21 100 unit/mL (70-30) subcutaneous pen (Novolog Mix 70-30FlexPen U-100) lisinopril 20 mg tablet 20 mg PO BID 02/04/21 10/12/21 bumetanide 2 mg tablet 2 mg PO BID 07/29/21 10/12/21 cholecalciferol (vitamin D3) 10 10 mcg PO DAILY 07/29/21 10/12/21 mcg (400 unit) capsule nitroglycerin 400 mcg/spray 1 spray sublingual Q5MIN chest pain 07/29/21 10/12/21 translingual clopidogrel 75 mg tablet 75 mg PO DAILY 09/30/21 10/12/21 nebivolol 20 mg tablet 20 mg PO DAILY 09/30/21 10/12/21 Allergies Allergy/AdvReac Type Severity Reaction Status Date / Time codeine AdvReac Intermediate Itching Verified 10/11/21 21:49 tramadol AdvReac Mild Nausea And Verified 10/11/21 21:49 Vomiting Review of Systems Review of Systems: CONSTITUTIONAL: Reports fevers EYES: Denies visual changes, redness, or discharge. ENT: Denies rhinorrhea, congestion, sore throat, or otalgia. CARDIOVASCULAR: Denies chest pain, palpitations, or edema. RESPIRATORY: Reports shortness of breath and cough GASTROINTESTINAL: Denies abdominal pain, nausea, vomiting, or diarrhea. GENITOURINARY: Denies dysuria or hematuria. SKIN: Denies rash or itching. MUSCULOSKELETAL: Denies back pain, joint pain, or myalgia. NEUROLOGIC: Denies headache, numbness, dizziness, or weakness. PSYCHIATRIC: Denies anxiety or depression. All systems reviewed & are unremarkable except as noted in HPI and below PMFSH Past Medical History Medical History (Updated 10/12/21 @ 02:10 by Gracie Wilson DO) Arthritis BPH (benign prostatic hyperplasia) CAD (coronary artery disease) CHF (congestive heart failure) Echocardiogram June 2021 EF of 55-60%, nuclear stress test demonstrated normal perfusion but enlarged left ventricle in declining EF to 42%, LORENE performed 07/30/2021 to further determine valve pathology demonstrated mild left ventricular systolic dysfunction with EF of 45-50% and [id number] left atrial enlargement with bioprosthetic valve without significant findings Chronic GERD Diabetes HTN (hypertension) Hypercholesterolemia Hyperlipidemia Obesity Obstructive sleep apnea treated with BiPAP Type 2 diabetes mellitus Surgical History Surgical History (Updated 10/12/21 @ 02:10 by Gracie Wilson DO) History of aortic valve replacement with bioprosthetic valve (10/2013) Georgina goodwin seen valve History of cardiac catheterization (08/2021) Moderate pulmonary hypertension, patent vein grafts to the obtuse marginal and RPDA, complex high-grade stenosis to the proximal LAD beg
[2021-10-11 22:04] VITALS: PULSE 117
[2021-10-11 22:05] VITALS: O2SAT 88
[2021-10-11 22:08] LABS: Basophils Absolute Auto 0.1 K/mm3 (0.0-0.1); Basophils Percent Auto 0.4 % (0.2-1.2); Eosinophils Absolute Auto 0.2 K/mm3 (0-0.3); Eosinophils Percent Auto 1.7 % (0-4.4); Hematocrit 31.9 % (42.0-52.0); Immature Granulocyte Absolute 0.08 K/mm3 (0.00-0.031); Immature Granulocyte Percent A 0.6 % (0-0.5); Lymphocytes Absolute Auto 2.01 K/mm3 (0.9-3.2); Lymphocytes Percent Auto 14.5 % (18.3-44.2); Mean Corpuscular HGB Conc 31.3 g/dl (32-36); Mean Corpuscular Volume 89.4 fl (80-100); Mean Platelet Volume 9.2 fl (7.4-10.4); Neutrophils Absolute Auto 10.6 K/mm3 (1.3-6.7); Neutrophils Percent Auto 75.8 % (45.5-73.1); Platelet Count Result 516 k/mm3 (150-375); Red Blood Count 3.57 M/mm3 (4.6-6.20); Red Cell Distribution Width 14.8 % (11.5-14.5); White Blood Count 13.9 K/mm3 (4.5-10.0)
[2021-10-11 22:08] LABS: Alveolar/Arterial O2 Gradient 136.9 mmHg; Base Excess ABG -1.6 mEq/l (+/-2.0); Fractional Inspired Oxygen 32 %; HCO3 ABG 21.8 mEq/l (22.0-26.0); Oxygen Content ABG 13.2 %vol (16.0-22.0); Oxygen Saturation ABG 89.9 % (95.0-100.0); PCO2 ABG 31.9 mmHg (35.0-45.0); PO2 ABG 53.9 mmHg (80.0-100.0); PO2 FiO2 Ratio Arterial Blood 1.68 %; Total Hemoglobin 10.7 g/dL (12.0-18.0); pH ABG 7.452 (7.350-7.450)
[2021-10-11 22:09] LABS: Device NASAL CANNULA; Modified Allen's Test Pass; Oxyhemoglobin 87.7 % THb (90.0-100.0); Site Drawn LEFT RADIAL
[2021-10-11 22:15] VITALS: RESP 28; O2SAT 98
[2021-10-11 22:17] LABS: Lactic Acid Reflex 1.4 mmol/L (0.7-2.0)
[2021-10-11 22:18] LABS: Alanine Aminotransferase 80 U/L (6-50); Albumin Level 3.5 g/dL (3.5-5.1); Alkaline Phosphatase 125 U/L (38-126); Anion Gap 10 mmol/L (8-16); Aspartate Amino Transferase 118 U/L (17-59); Bilirubin,Total 0.4 mg/dL (0.2-1.3); Blood Urea Nitrogen 35 mg/dL (9-20); Calcium 8.5 mg/dL (8.4-10.2); Carbon Dioxide 24 mmol/L (22-30); Chloride 104 mmol/L (98-107); Estimated CRCL calculation 35 ml/min; Estimated Glomerular Filt Rate 31; Glucose 212 mg/dL (65-110); Potassium 4.1 mmol/L (3.4-5.0); Sodium 138 mmol/L (137-145)
[2021-10-11] MEDS: PIPERACILLIN/TAZOBACTAM SOD 4.5 GM in SODIUM CHLORIDE 0.9% IV 100 ML 200 ML IVPB (22:18)
[2021-10-11] MEDS: FUROSEMIDE INJ 40 MG/4 ML VIAL IV PUSH (22:20)
[2021-10-11 22:46] LABS: SARS-CoV-2 RNA PCR Negative
[2021-10-11 23:22] LABS: NT Pro B Type Natriuretic Pept 5710 pg/mL (5-100); Troponin I 0.034 ng/mL (0.000-0.034)
[2021-10-12] VITALS (21 sets, daily range): BP systolic 107–148; BP diastolic 47–91; PULSE 60–81; RESP 20–26; TEMP 36.3–37.4; O2SAT 94–100; BMI 38.4
--- NOTE | 2021-10-12 01:32 | ADMIMU ---
This patient, Gabriel Celeste, was admitted to IMU status, and placed in IMU Room 231-01 at 0113. Patient/family oriented to hospital policies and general routines including ID bracelet, bed and alarms, visiting hours, pain management, procedures, bathroom and other care routines, personal items, smoking policy, room service/diet, and visiting hours. Information on how to activate the Rapid Response Team has been discussed. Patient/Family are encouraged to report perceived risks to care and to ask questions if they do not understand what they are told or what they should do.
--- NOTE | 2021-10-12 01:52 | PM.IMHP ---
H&P: HPI History of Present Illness Date/Time: 10/12/21 01:52 Chief Complaint: Severe shortness of breath Narrative: 75-year-old male with past medical history of BPH, chronic hypoxic respiratory failure, coronary disease, CHF, chronic kidney disease stage III, diabetes, and obstructive sleep apnea who presented to the ER via EMS from home due to respiratory distress. The patient had recently been hospitalized from 09/30/2021 through 10/05/2021 due to acute CHF exacerbation and pneumonia. He received diuretics, and azithromycin. His mycoplasma titers came back positive. He was negative for urine Legionella antigen. The time patient's creatinine was also noted to be elevated above his baseline. The patient was treated with diuretics and antibiotics. Nephrology was consulted but patient's creatinine remained stable and unchanged suggesting new baseline. The patient reports that since his last hospitalization he has continued to have progressive dyspnea. On his home O2 use satting 88% on EMS arrival to his home. EMS give the patient DuoNeb treatment and Solu-Medrol in route to did not improve his symptoms. On arrival to the ER patient was febrile with T-max of 101.8?. The patient states that both he and his do not think his legs are knee more swollen than usual. Patient reports he feels much more comfortable at the time of my evaluation and requested to be removed from the BiPAP. Patient was placed on 4 L nasal cannula without any further respiratory distress. The patient was positive for COVID in May 2021. He has been vaccinated against COVID. His COVID PCR currently is negative. The patient was noted to be wheezing in the anterior upper ann. The patient reports that he is PFTs once a year and publisher assistant has told him that he does not have any COPD. Source of information: ER records, and recent records from hospitalization is was patient report. Review of Systems Review of Systems: 12 systems were reviewed with pertinent positives and negatives per HPI. Except as documented in the HPI, all other systems were reviewed and are negative. [facility] Past Medical History Medical History (Updated 10/12/21 @ 07:25 by Gracie Wilson DO) Arthritis Blindness of left eye BPH (benign prostatic hyperplasia) CAD (coronary artery disease) CHF (congestive heart failure) Echocardiogram June 2021 EF of 55-60%, nuclear stress test demonstrated normal perfusion but enlarged left ventricle in declining EF to 42%, LORENE performed 07/30/2021 to further determine valve pathology demonstrated mild left ventricular systolic dysfunction with EF of 45-50% and stuv-oo-peftnage left atrial enlargement with bioprosthetic valve without significant findings Chronic GERD Diabetes HTN (hypertension) Hypercholesterolemia Hyperlipidemia Obesity Obstructive sleep apnea treated with BiPAP Type 2 diabetes mellitus Surgical History Surgical History (Updated 10/12/21 @ 02:10 by Gracie Wilson DO) History of aortic valve replacement with bioprosthetic valve (10/2013) Georgina goodwin seen valve History of cardiac catheterization (08/2021) Moderate pulmonary hypertension, patent vein grafts to the obtuse marginal and RPDA, complex high-grade stenosis to the proximal LAD beginning at the origin of the 1st septal branch and extending about 30 mm distal into the LAD crossing over the diagonal branches as well History of transurethral resection of prostate (12/2020) Hx of LASIK S/P CABG (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) Saphenous vein graft to obtuse marginal, saphenous vein graft to PDA Family History Family History (Updated 10/12/21 @ 07:14 by Gracie Wilson DO) Mother Family history of heart disease in male family member before age 55 Acute myocardial infarction Diabetes mellitus Father Cancer Sibling Diabetes mellitus Sibling Hypertension Social History Social History (Updated 10/12/21 @ 07:15 by Gracie Jaeger
[2021-10-12 02:04] LABS: Appearance Urine Clear (Clear); Bilirubin Urine Negative (Negative); Blood Urine Negative (Negative); Color Urine Yellow (Yellow); Glucose Urine UA Negative (Negative); Ketones Urine Negative (Negative); Leukocyte Esterase Ur 1+ LEU/UL (Negative); Nitrate Urine Negative (Negative); Protein Urine 3+ mg/dL (Negative); Specific Grav Ur 1.015 (1.001-1.035); Urobilinogen Urine 0.2 mg/dL (<2.0)
[2021-10-12 02:11] LABS: Bacteria Urine Trace /hpf; Mucus Urine Rare /lpf; Squamous Epithelial Cell Urine Occasional /hpf (Few); WBC Urine 21-30 /hpf
[2021-10-12 02:14] LABS: Add Urine Microscopic? YES
[2021-10-12 02:26] LABS: Troponin I 0.084 ng/mL (0.000-0.034)
[2021-10-12 05:33] LABS: Hematocrit 30.8 % (42.0-52.0); Hemoglobin 9.9 g/dL (14.0-18.0); Mean Corpuscular HGB Conc 32.1 g/dl (32-36); Mean Platelet Volume 9.8 fl (7.4-10.4); Platelet Count Result 474 k/mm3 (150-375); Red Blood Count 3.54 M/mm3 (4.6-6.20); Red Cell Distribution Width 14.6 % (11.5-14.5); White Blood Count 9.1 K/mm3 (4.5-10.0)
[2021-10-12 05:52] LABS: Anion Gap 10 mmol/L (8-16); Blood Urea Nitrogen 36 mg/dL (9-20); Calcium 8.4 mg/dL (8.4-10.2); Carbon Dioxide 23 mmol/L (22-30); Chloride 105 mmol/L (98-107); Estimated CRCL calculation 41 ml/min; Estimated Glomerular Filt Rate 37; Glucose 198 mg/dL (65-110); Sodium 138 mmol/L (137-145)
[2021-10-12 06:03] LABS: Troponin I 0.078 ng/mL (0.000-0.034)
[2021-10-12 08:02] LABS: Glucose Point of Care 218 mg/dl (65-105)
[2021-10-12] MEDS: PANTOPRAZOLE 40 MG TABLET PO (09:03)
[2021-10-12] MEDS: TERAZOSIN HCL 5 MG CAPSULE 10 MG PO (09:03)
[2021-10-12] MEDS: allopurinoL 300 MG TABLET PO (09:04)
[2021-10-12] MEDS: FINASTERIDE 5 MG TABLET PO (09:04)
[2021-10-12] MEDS: CHOLECALCIFEROL 400 UNITS TABLET (VIT D) PO (09:04)
[2021-10-12] MEDS: ASPIRIN 81 MG ENTERIC TABLET PO (09:04)
[2021-10-12] MEDS: amLODIPine BESYLATE 5 MG TABLET 10 MG PO (09:04)
[2021-10-12] MEDS: hydrALAZINE HCL 50 MG TABLET PO ×3 (09:05→16:51)
[2021-10-12] MEDS: MULTIVITAMINS THERAPEUTIC TAB (*BKC) 1 TABLET PO (09:05)
[2021-10-12] MEDS: lisinopriL 20 MG TABLET PO ×2 (09:05→16:51)
[2021-10-12] MEDS: NEBIVOLOL HCL 5 MG TABLET 20 MG PO (09:05)
[2021-10-12] MEDS: ROSUVASTATIN 10 MG TABLET PO (09:06)
[2021-10-12] MEDS: ENOXAPARIN 40 MG/0.4 ML SYRINGE SUB-Q (09:06)
[2021-10-12] MEDS: FUROSEMIDE INJ 40 MG/4 ML VIAL IV PUSH ×2 (09:06→20:54)
[2021-10-12] MEDS: CLOPIDOGREL BISULFATE 75 MG TABLET PO (09:06)
[2021-10-12] MEDS: INSULIN ASPART MIX 70/30 100 UNITS/ML SUB-Q ×2 (09:16→17:25)
--- NOTE | 2021-10-12 10:09 | PM.CNCAR ---
Assessment and Plan Assessment and plan (1) Acute on chronic heart failure with preserved ejection fraction: Code(s): I50.33 - Acute on chronic diastolic (congestive) heart failure Status: Acute Assessment and Plan: Agree with IV diuretics. Initiate IV furosemide 40 mg IV q.12 hours. Continues other regimen including aspirin, clopidogrel, hydralazine, nebivolol, lisinopril, amlodipine. Follow basic metabolic panel. Continue statin (2) Hypertension associated with type 2 diabetes mellitus: Code(s): E11.59 - Type 2 diabetes mellitus with other circulatory complications; I15.2 - Hypertension secondary to endocrine disorders Status: Acute Assessment and Plan: Per hospitalist (3) JUANITA (acute kidney injury): Code(s): N17.9 - Acute kidney failure, unspecified Status: Acute Assessment and Plan: Improved (4) Pneumonia: Qualifiers: Laterality: right Lung location: unspecified part of lung Pneumonia type: due to unspecified organism Qualified Code(s): J18.9 - Pneumonia, unspecified organism Code(s): J18.9 - Pneumonia, unspecified organism Status: Acute Assessment and Plan: On antibiotics (5) Elevated troponin: Code(s): R77.8 - Other specified abnormalities of plasma proteins Status: Acute Assessment and Plan: Not related acute coronary syndrome History of Present Illness History of Present Illness Consult date/time: 10/12/21 10:09 Reason For Visit: CHF Exacerbation Narrative: Date of service 10/12/2021 Reason consultation: CHF Requesting provider: Dr. Rock History patient is a 75-year-old male patient Dr. Chris who has a history of sleep apnea, hypertension, coronary disease status post CABG, PCI to the LAD, bioprosthetic aortic valve replacement, hyperlipidemia diabetes chronic edema history of bladder cancer present hospital with worsening shortness of breath. He was recently hospitalized and discharged as recently as 10/06/1999 20 ft 2 for CHF exacerbation pneumonia. He did have mycoplasma titers which were positive. He also had renal failure. While at home he has had progressively worsening dyspnea, swelling. He also spiked a fever up to 101.8. Legs were progressively more swollen. He was waking up at night short of breath. His called EMS because of how ill here. And his shortness of breath and worsening symptoms. Patient has been started on antibiotics well as IV diuretics. He is currently feeling better today. He denies any chest pain, syncope, presyncope. No palpitations. Review of Systems Review of Systems: All systems reviewed & are unremarkable except as noted in HPI and below Constitutional: Constitutional: Denies body ache(s) and Reports chills Eyes: Eyes: Denies blurry vision ENT: Reports Normal hearing present Cardiovascular: Cardiovascular: Denies chest pain, Reports pedal edema and Reports leg edema Respiratory: Respiratory: Denies chest congestion and Reports dyspnea Gastrointestinal: Gastrointestinal: Denies abdominal pain Genitourinary: Genitourinary: Denies hematuria Musculoskeletal: Musculoskeletal: Denies back pain Integumentary/Breasts: Skin/Breast: Denies breast pain Neurologic: Denies Abnormal speech present Psychiatric: Psychiatric: Denies anxiety and Denies behavioral changes Endocrine: Endocrine: Denies excessive sweating Hematologic/Lymphatic: Hematologic/Lymphatic: Denies easy bleeding Allergic/Immunologic: Allergic/Immunologic: Denies GI upset with certain foods PMFSH Past Medical History Medical History Arthritis Blindness of left eye BPH (benign prostatic hyperplasia) CAD (coronary artery disease) CHF (congestive heart failure) Echocardiogram June 2021 EF of 55-60%, nuclear stress test demonstrated normal perfusion but enlarged left ventricle in declining EF to 42%, LORENE performed
[2021-10-12 12:19] LABS: Glucose Point of Care 212 mg/dl (65-105)
[2021-10-12] MEDS: INSULIN ASPART (*BKC) 100 UNITS/ML SUB-Q (12:36)
[2021-10-12 17:01] LABS: Glucose Point of Care 203 mg/dl (65-105)
[2021-10-12 20:06] LABS: Glucose Point of Care 236 mg/dl (65-105)
[2021-10-13] VITALS (25 sets, daily range): BP systolic 83–139; BP diastolic 53–65; PULSE 56–104; RESP 12–22; TEMP 36.3–39.1; O2SAT 94–99
[2021-10-13 07:50] LABS: Glucose Point of Care 213 mg/dl (65-105)
[2021-10-13] MEDS: FUROSEMIDE INJ 40 MG/4 ML VIAL IV PUSH ×2 (08:47→21:47)
[2021-10-13] MEDS: TERAZOSIN HCL 5 MG CAPSULE 10 MG PO (08:47)
[2021-10-13] MEDS: hydrALAZINE HCL 50 MG TABLET PO ×3 (08:47→17:19)
[2021-10-13] MEDS: CLOPIDOGREL BISULFATE 75 MG TABLET PO (08:47)
[2021-10-13] MEDS: allopurinoL 300 MG TABLET PO (08:47)
[2021-10-13] MEDS: PANTOPRAZOLE 40 MG TABLET PO (08:48)
[2021-10-13] MEDS: ROSUVASTATIN 10 MG TABLET PO (08:48)
[2021-10-13] MEDS: INSULIN ASPART MIX 70/30 100 UNITS/ML SUB-Q (08:48)
[2021-10-13] MEDS: FINASTERIDE 5 MG TABLET PO (08:48)
[2021-10-13] MEDS: NEBIVOLOL HCL 5 MG TABLET 20 MG PO (08:48)
[2021-10-13] MEDS: ENOXAPARIN 40 MG/0.4 ML SYRINGE SUB-Q (08:48)
[2021-10-13] MEDS: CHOLECALCIFEROL 400 UNITS TABLET (VIT D) PO (08:48)
[2021-10-13] MEDS: MULTIVITAMINS THERAPEUTIC TAB (*BKC) 1 TABLET PO (08:48)
[2021-10-13] MEDS: amLODIPine BESYLATE 5 MG TABLET 10 MG PO (08:48)
[2021-10-13] MEDS: lisinopriL 20 MG TABLET PO ×2 (08:48→21:47)
[2021-10-13] MEDS: ASPIRIN 81 MG ENTERIC TABLET PO (08:48)
--- NOTE | 2021-10-13 09:21 | PM.IMPN ---
Progress Note: A&P Assessment and Plan (1) Sepsis with acute hypoxic respiratory failure: Code(s): A41.9 - Sepsis, unspecified organism; R65.20 - Severe sepsis without septic shock; J96.01 - Acute respiratory failure with hypoxia Status: Acute Assessment and Plan: Sepsis criteria met on admission with fever, tachycardia, tachypnea, leukocytosis and acute on chronic hypoxic respiratory failure. Patient has been placed on broad-spectrum antibiotic coverage with Zosyn and vanc to cover for possible healthcare associated pneumonia. Blood cultures have been obtained and are pending. Significantly improved today, October 13, on 2 L nasal cannula, continue to wean oxygen Follow-up blood cultures Day 2 of antibiotics with vancomycin and Zosyn (2) Pneumonia: Qualifiers: Laterality: right Lung location: unspecified part of lung Pneumonia type: due to unspecified organism Qualified Code(s): J18.9 - Pneumonia, unspecified organism Code(s): J18.9 - Pneumonia, unspecified organism Status: Acute Assessment and Plan: Given the patient's recent hospitalization will give broader spectrum antibiotic coverage with Zosyn and vancomycin to treat for healthcare associated pneumonia. The patient did receive complete course of antibiotic therapy for pneumonia during his last hospitalization which was most likely due to mycoplasma pneumonia given his elevated antibody. No need to repeat Legionella and mycoplasma studies at this time. Will check pneumococcal urine antigen (3) CHF exacerbation: Qualifiers: Heart failure type: systolic Qualified Code(s): I50.23 - Acute on chronic systolic (congestive) heart failure Code(s): I50.9 - Heart failure, unspecified Status: Acute Assessment and Plan: Systolic and likely some component of right-sided heart failure given history of pulmonary hypertension. Will continue patient on IV Lasix b.i.d. and monitor strict I&O's. Will check daily weights. (4) Stage 3b chronic kidney disease: Code(s): N18.32 - Chronic kidney disease, stage 3b Status: Acute Assessment and Plan: Creatinine is stable compared to baseline. Will monitor urine output. BMP pending Subjective Date/time seen: 10/13/21 09:21 Interval history: Patient sitting up to the side of his bed. No complaints, no events noted overnight. Denies chest pain shortness a breath. No nausea vomiting diarrhea. Good p.o. intake. Does admit to continue lower extremity swelling. Admits to urinating a lot. Review of Systems Review of Systems: Twelve point review of systems was reviewed and is negative except as noted in the HPI Exam Narrative: General: Patient resting comfortably in bed, no acute distress HEENT: Atraumatic, normocephalic, mucous membranes moist CV: Regular rate and rhythm, S1, S2, no murmurs rubs or gallops noted Lungs: Decreased air entry noted throughout, no crackles or rales Abdomen: Soft, nontender, nondistended Extremities: Normal to inspection, 2+ pitting edema bilaterally up to mid ji Skin: No rashes noted, no lesions or wounds seen Psych: Euthymic, normal affect Neuro: Cranial nerves 2-12 grossly intact, strength 5/5 upper and lower extremities noted Objective Data Vital Signs Vital Signs: Vital Signs - 24 hr 10/12/21 10:00 10/12/21 12:00 10/12/21 12:00 Temperature 97.4 F L Pulse Rate 66 68 67 Respiratory Rate 20 Blood Pressure 126/91 H Pulse Oximetry 100 Oxygen Delivery Oxygen Flow Rate 10/12/21 12:00 10/12/21 14:00 10/12/21 16:00 Temperature Pulse Rate 62 70 Respiratory Rate Blood Pressure Pulse Oximetry 97 Oxygen Delivery Nasal Cannula Oxygen Flow Rate 4 10/12/21 16:00 10/12/21 16:00 10/12/21 18:00 Temperature 97.6 F Pulse Rate 73 74 Respiratory Rate 20 Blood Pressure 107/80 Pulse Oximetry 97 97 Oxygen Delivery Nasal Cannula Oxygen Flow Rate 4
--- NOTE | 2021-10-13 11:17 | PM.PNCARD ---
Progress Note: A&P Assessment and Plan (1) Acute on chronic heart failure with preserved ejection fraction: Code(s): I50.33 - Acute on chronic diastolic (congestive) heart failure Status: Acute Assessment and Plan: Continue furosemide 40 mg IV q.12 hours. Continues other regimen including aspirin, clopidogrel, hydralazine, nebivolol, lisinopril, amlodipine. Follow basic metabolic panel. Continue statin (2) Hypertension associated with type 2 diabetes mellitus: Code(s): E11.59 - Type 2 diabetes mellitus with other circulatory complications; I15.2 - Hypertension secondary to endocrine disorders Status: Acute Assessment and Plan: Per hospitalist (3) JUANITA (acute kidney injury): Code(s): N17.9 - Acute kidney failure, unspecified Status: Acute Assessment and Plan: Improved (4) Pneumonia: Qualifiers: Laterality: right Lung location: unspecified part of lung Pneumonia type: due to unspecified organism Qualified Code(s): J18.9 - Pneumonia, unspecified organism Code(s): J18.9 - Pneumonia, unspecified organism Status: Acute Assessment and Plan: On antibiotics (5) Elevated troponin: Code(s): R77.8 - Other specified abnormalities of plasma proteins Status: Acute Assessment and Plan: Not related acute coronary syndrome Subjective Date/time seen: 10/13/21 11:17 Interval history: 75-year-old admitted for heart failure and pneumonia Date of service 10/13/2021: He is doing better. He feels better. Still swollen. Less short of breath. No chest pain Review of Systems Review of Systems: All systems reviewed & are unremarkable except as noted in HPI and below Constitutional: Constitutional: Denies body ache(s), Reports chills and Denies excessive sweating Eyes: Eyes: Denies blurry vision ENT: Reports Normal hearing present Cardiovascular: Cardiovascular: Denies chest pain, Reports pedal edema, Reports leg edema and Reports dyspnea Respiratory: Respiratory: Denies chest congestion and Reports dyspnea Gastrointestinal: Gastrointestinal: Denies abdominal pain Genitourinary: Genitourinary: Denies hematuria Musculoskeletal: Musculoskeletal: Denies back pain Integumentary/Breasts: Skin/Breast: Denies breast pain Neurologic: Reports Normal hearing present, Denies Abnormal speech present and Denies behavioral changes Psychiatric: Psychiatric: Denies anxiety and Denies behavioral changes Endocrine: Endocrine: Denies excessive sweating Hematologic/Lymphatic: Hematologic/Lymphatic: Denies easy bleeding Allergic/Immunologic: Allergic/Immunologic: Denies GI upset with certain foods Exam Narrative: Awake alert appears stated age Const: General: comfortable; No in distress HENMT: General nose exam: Normal nares present Eyes: Sclera: sclerae normal Neck: Neck: supple Carotids: no bruits Chest: Other: No reproducible chest wall pain to palpation Resp: Auscultation: rales Cardio: Rate: regular rate Rhythm: regular rhythm Heart sounds: no gallops and Murmur heart sound present GI: Inspection: non-distended Skin: General skin exam: normal color Neuro: Cranial nerves: Yes Normal hearing present Speech: normal speech and No Abnormal speech present Sensory Exam: normal sensation Extrem: General: edema Other: 3+ bilateral extremity edema Psych: Mental Status: mental status grossly normal Objective Data Vital Signs Vital Signs: Vital Signs - 24 hr 10/12/21 12:00 10/12/21 12:00 10/12/21 12:00 Temperature 36.3 C L Pulse Rate 68 67 Respiratory Rate 20 Blood Pressure 126/91 H Pulse Oximetry 100 97 Oxygen Delivery Nasal Cannula Oxygen Flow Rate 4 10/12/21 14:00 10/12/21 16:00 10/12/21 16:00 Temperature Pulse Rate 62 70 Respiratory Rate Blood Pressure Pulse Oximetry 97 Oxygen Delivery Nasal Cannula Oxygen Flow Rate 4 10/12/21 16:00 10/12/21 1
[2021-10-13 12:05] LABS: Glucose Point of Care 152 mg/dl (65-105)
[2021-10-13 12:45] LABS: Basophils Percent Auto 0.2 % (0.2-1.2); Eosinophils Absolute Auto 0.1 K/mm3 (0-0.3); Eosinophils Percent Auto 0.5 % (0-4.4); Hematocrit 32.2 % (42.0-52.0); Hemoglobin 10.4 g/dL (14.0-18.0); Immature Granulocyte Absolute 0.12 K/mm3 (0.00-0.031); Immature Granulocyte Percent A 0.7 % (0-0.5); Lymphocytes Absolute Auto 1.05 K/mm3 (0.9-3.2); Lymphocytes Percent Auto 6.3 % (18.3-44.2); Mean Corpuscular HGB Conc 32.3 g/dl (32-36); Mean Corpuscular Hemoglobin 28.2 pg (26-34); Mean Corpuscular Volume 87.3 fl (80-100); Mean Platelet Volume 9.5 fl (7.4-10.4); Monocytes Absolute Auto 0.9 K/mm3 (0.1-0.6); Monocytes Percent Auto 5.4 % (2.6-8.5); Neutrophils Absolute Auto 14.4 K/mm3 (1.3-6.7); Neutrophils Percent Auto 86.9 % (45.5-73.1); Platelet Count Result 495 k/mm3 (150-375); Red Blood Count 3.69 M/mm3 (4.6-6.20); Red Cell Distribution Width 14.6 % (11.5-14.5); White Blood Count 16.5 K/mm3 (4.5-10.0)
[2021-10-13 13:05] LABS: Alanine Aminotransferase 61 U/L (6-50); Albumin Level 3.4 g/dL (3.5-5.1); Alkaline Phosphatase 90 U/L (38-126); Anion Gap 5 mmol/L (8-16); Aspartate Amino Transferase 84 U/L (17-59); Bilirubin,Total 0.1 mg/dL (0.2-1.3); Blood Urea Nitrogen 47 mg/dL (9-20); Calcium 8.6 mg/dL (8.4-10.2); Carbon Dioxide 28 mmol/L (22-30); Chloride 106 mmol/L (98-107); Estimated CRCL calculation 36 ml/min; Estimated Glomerular Filt Rate 31; Glucose 123 mg/dL (65-110); Potassium 3.8 mmol/L (3.4-5.0); Sodium 139 mmol/L (137-145)
[2021-10-13 16:03] LABS: Glucose Point of Care 99 mg/dl (65-105)
[2021-10-13] MEDS: ACETAMINOPHEN 325 MG TABLET 650 MG PO (17:19)
[2021-10-13 21:15] LABS: Glucose Point of Care 164 mg/dl (65-105)
[2021-10-14] VITALS (18 sets, daily range): BP systolic 111–147; BP diastolic 49–83; PULSE 63–76; RESP 14–20; TEMP 36.5–37.8; O2SAT 91–98
[2021-10-14 05:24] LABS: Anion Gap 9 mmol/L (8-16); Blood Urea Nitrogen 44 mg/dL (9-20); Calcium 7.8 mg/dL (8.4-10.2); Carbon Dioxide 26 mmol/L (22-30); Chloride 103 mmol/L (98-107); Estimated CRCL calculation 39 ml/min; Estimated Glomerular Filt Rate 35; Glucose 112 mg/dL (65-110); Magnesium 2.3 mg/dL (1.6-2.3); Potassium 3.8 mmol/L (3.4-5.0); Sodium 138 mmol/L (137-145)
[2021-10-14 07:34] LABS: Glucose Point of Care 118 mg/dl (65-105)
[2021-10-14] MEDS: allopurinoL 300 MG TABLET PO (08:40)
[2021-10-14] MEDS: MULTIVITAMINS THERAPEUTIC TAB (*BKC) 1 TABLET PO (08:40)
[2021-10-14] MEDS: amLODIPine BESYLATE 5 MG TABLET 10 MG PO (08:40)
[2021-10-14] MEDS: lisinopriL 20 MG TABLET PO ×2 (08:40→17:34)
[2021-10-14] MEDS: CHOLECALCIFEROL 400 UNITS TABLET (VIT D) PO (08:41)
[2021-10-14] MEDS: FINASTERIDE 5 MG TABLET PO (08:41)
[2021-10-14] MEDS: CLOPIDOGREL BISULFATE 75 MG TABLET PO (08:41)
[2021-10-14] MEDS: PANTOPRAZOLE 40 MG TABLET PO (08:41)
[2021-10-14] MEDS: ROSUVASTATIN 10 MG TABLET PO (08:41)
[2021-10-14] MEDS: ENOXAPARIN 40 MG/0.4 ML SYRINGE SUB-Q (08:41)
[2021-10-14] MEDS: ASPIRIN 81 MG ENTERIC TABLET PO (08:42)
[2021-10-14] MEDS: FUROSEMIDE INJ 40 MG/4 ML VIAL IV PUSH ×2 (08:42→21:18)
[2021-10-14] MEDS: hydrALAZINE HCL 50 MG TABLET PO ×3 (08:42→17:33)
[2021-10-14] MEDS: NEBIVOLOL HCL 5 MG TABLET 20 MG PO (08:43)
[2021-10-14] MEDS: INSULIN ASPART MIX 70/30 100 UNITS/ML SUB-Q ×2 (08:58→17:28)
--- NOTE | 2021-10-14 09:05 | PM.IMPN ---
Progress Note: A&P Assessment and Plan (1) Sepsis with acute hypoxic respiratory failure: Code(s): A41.9 - Sepsis, unspecified organism; R65.20 - Severe sepsis without septic shock; J96.01 - Acute respiratory failure with hypoxia Status: Acute Assessment and Plan: Resolved, blood cultures negative (2) Pneumonia: Qualifiers: Laterality: right Lung location: unspecified part of lung Pneumonia type: due to unspecified organism Qualified Code(s): J18.9 - Pneumonia, unspecified organism Code(s): J18.9 - Pneumonia, unspecified organism Status: Acute Assessment and Plan: Suspect continued mycoplasma infection from his last admission since he got worse despite treatment with vancomycin and Zosyn but improved with levaquin, anticipate discharge tomorrow on oral Levaquin, vancomycin and cefepime discontinued today (3) CHF exacerbation: Qualifiers: Heart failure type: systolic Qualified Code(s): I50.23 - Acute on chronic systolic (congestive) heart failure Code(s): I50.9 - Heart failure, unspecified Status: Acute Assessment and Plan: Still some edema noted in the lower extremities, patient is asymptomatic, currently receiving Lasix twice a day, will add another dose today 1:00 p.m., anticipate discharging home tomorrow on oral Lasix (4) Stage 3b chronic kidney disease: Code(s): N18.32 - Chronic kidney disease, stage 3b Status: Acute Assessment and Plan: Creatinine is stable compared to baseline. Will monitor urine output. BMP pending Subjective Date/time seen: 10/14/21 09:05 Interval history: Patient sitting up decided bed and feels much better than yesterday. Denies any fevers chills overnight events. No chest pain shortness a breath. No nausea vomiting diarrhea. Review of Systems Review of Systems: Twelve point review of systems was reviewed and is negative except as noted in the HPI Exam Narrative: General: Patient resting comfortably in bed, no acute distress HEENT: Atraumatic, normocephalic, mucous membranes moist CV: Regular rate and rhythm, S1, S2, loud systolic murmur noted Lungs: Clear to auscultation bilaterally Abdomen: Soft, nontender, nondistended Extremities: Normal to inspection, 1+ pitting edema b/l Skin: No rashes noted, no lesions or wounds seen Psych: Euthymic, normal affect Neuro: Cranial nerves 2-12 grossly intact, strength 5/5 upper and lower extremities noted Objective Data Vital Signs Vital Signs: Vital Signs - 24 hr 10/13/21 10:00 10/13/21 12:23 10/13/21 12:00 Temperature 97.4 F L Pulse Rate 74 70 71 Respiratory Rate 18 Blood Pressure 120/53 L Pulse Oximetry 97 Oxygen Delivery Oxygen Flow Rate 10/13/21 12:00 10/13/21 14:05 10/13/21 14:00 Temperature Pulse Rate 82 Respiratory Rate Blood Pressure Pulse Oximetry 97 Oxygen Delivery Nasal Cannula Nasal Cannula Oxygen Flow Rate 3 4 10/13/21 16:00 10/13/21 16:03 10/13/21 16:48 Temperature 99.4 F Pulse Rate 84 Respiratory Rate 22 H Blood Pressure 83/56 L 108/63 116/57 L Pulse Oximetry 95 Oxygen Delivery Oxygen Flow Rate 10/13/21 16:49 10/13/21 16:51 10/13/21 16:00 Temperature 102.4 F H Pulse Rate 88 Respiratory Rate Blood Pressure 129/57 L 121/53 L Pulse Oximetry Oxygen Delivery Oxygen Flow Rate 10/13/21 16:00 10/13/21 15:10 10/13/21 17:19 Temperature 102.4 F H Pulse Rate Respiratory Rate Blood Pressure Pulse Oximetry 94 Oxygen Delivery Nasal Cannula Nasal Cannula Oxygen Flow Rate 3 3 10/13/21 18:17 10/13/21 18:22 10/13/21 18:00 Temperature 100.9 F H 100.9 F H Pulse Rate 72 Respiratory Rate Blood Pressure Pulse Oximetry Oxygen Delivery Oxygen Flow Rate 10/13/21 18:44 10/13/21 20:00 10/13/21 21:25 Temperature 98.4 F Pulse Rate 66 63 Respiratory Rate 16 Blood Pressure 139/55 L 129/62
--- NOTE | 2021-10-14 11:35 | PM.PNCARD ---
Progress Note: A&P Assessment and Plan (1) Acute on chronic heart failure with preserved ejection fraction: Code(s): I50.33 - Acute on chronic diastolic (congestive) heart failure Status: Acute Assessment and Plan: Continue furosemide 40 mg IV q.12 hours. Will give a dose of metolazone 2.5 mg p.o. x1 today. Continues other regimen including aspirin, clopidogrel, hydralazine, nebivolol, lisinopril, amlodipine. Follow basic metabolic panel. Continue statin (2) Hypertension associated with type 2 diabetes mellitus: Code(s): E11.59 - Type 2 diabetes mellitus with other circulatory complications; I15.2 - Hypertension secondary to endocrine disorders Status: Acute Assessment and Plan: Per hospitalist (3) JUANITA (acute kidney injury): Code(s): N17.9 - Acute kidney failure, unspecified Status: Acute Assessment and Plan: Stable (4) Pneumonia: Qualifiers: Laterality: right Lung location: unspecified part of lung Pneumonia type: due to unspecified organism Qualified Code(s): J18.9 - Pneumonia, unspecified organism Code(s): J18.9 - Pneumonia, unspecified organism Status: Acute Assessment and Plan: On antibiotics (5) Elevated troponin: Code(s): R77.8 - Other specified abnormalities of plasma proteins Status: Acute Assessment and Plan: Not related acute coronary syndrome Subjective Date/time seen: 10/14/21 11:35 Interval history: 75-year-old admitted for heart failure and pneumonia Date of service 10/14/2021: He is doing better. He feels better. Swelling is unchanged from yesterday. No chest pain. Review of Systems Review of Systems: All systems reviewed & are unremarkable except as noted in HPI and below Constitutional: Constitutional: Denies body ache(s), Reports chills and Denies excessive sweating Eyes: Eyes: Denies blurry vision ENT: Reports Normal hearing present Cardiovascular: Cardiovascular: Denies chest pain, Reports pedal edema, Reports leg edema and Reports dyspnea Respiratory: Respiratory: Denies chest congestion and Reports dyspnea Gastrointestinal: Gastrointestinal: Denies abdominal pain Genitourinary: Genitourinary: Denies hematuria Musculoskeletal: Musculoskeletal: Denies back pain Integumentary/Breasts: Skin/Breast: Denies breast pain Neurologic: Reports Normal hearing present, Denies Abnormal speech present and Denies behavioral changes Psychiatric: Psychiatric: Denies anxiety and Denies behavioral changes Endocrine: Endocrine: Denies excessive sweating Hematologic/Lymphatic: Hematologic/Lymphatic: Denies easy bleeding Allergic/Immunologic: Allergic/Immunologic: Denies GI upset with certain foods Exam Narrative: Awake alert appears stated age Const: General: comfortable; No in distress HENMT: General nose exam: Normal nares present Eyes: Sclera: sclerae normal Neck: Neck: supple Carotids: no bruits Chest: Other: No reproducible chest wall pain to palpation Resp: Auscultation: rales Cardio: Rate: regular rate Rhythm: regular rhythm Heart sounds: no gallops and Murmur heart sound present GI: Inspection: non-distended Skin: General skin exam: normal color Neuro: Cranial nerves: Yes Normal hearing present Speech: normal speech and No Abnormal speech present Sensory Exam: normal sensation Extrem: General: edema Other: 3+ bilateral extremity edema Psych: Mental Status: mental status grossly normal Objective Data Vital Signs Vital Signs: Vital Signs - 24 hr 10/13/21 12:23 10/13/21 12:00 10/13/21 12:00 Temperature 36.3 C L Pulse Rate 70 71 Respiratory Rate 18 Blood Pressure 120/53 L Pulse Oximetry 97 97 Oxygen Delivery Nasal Cannula Oxygen Flow Rate 3 10/13/21 14:05 10/13/21 14:00 10/13/21 16:00 Temperature 37.4 C Pulse Rate 82 84 Respiratory Rate 22 H Blood Pressure 83/56 L Pulse Oximetry 95 Oxygen Deliver
[2021-10-14 12:03] LABS: Glucose Point of Care 131 mg/dl (65-105)
[2021-10-14] MEDS: metOLazone 2.5 MG TABLET PO (12:45)
[2021-10-14 17:10] LABS: Glucose Point of Care 120 mg/dl (65-105)
[2021-10-14] MEDS: ACETAMINOPHEN 325 MG TABLET 650 MG PO (18:04)
[2021-10-14 20:57] LABS: Glucose Point of Care 73 mg/dl (65-105)
[2021-10-14] MEDS: TERAZOSIN HCL 5 MG CAPSULE 10 MG PO (21:19)
[2021-10-14 22:16] LABS: Vancomycin Trough 14.6 ug/mL (10.0-20.0)
[2021-10-15] VITALS (17 sets, daily range): BP systolic 127–140; BP diastolic 55–84; PULSE 64–82; RESP 16–20; TEMP 36.3–37.4; O2SAT 91–97
[2021-10-15 07:05] LABS: Glucose Point of Care 96 mg/dl (65-105)
[2021-10-15] MEDS: CHOLECALCIFEROL 400 UNITS TABLET (VIT D) PO (08:55)
[2021-10-15] MEDS: lisinopriL 20 MG TABLET PO ×2 (08:55→17:38)
[2021-10-15] MEDS: ROSUVASTATIN 10 MG TABLET PO (08:56)
[2021-10-15] MEDS: MULTIVITAMINS THERAPEUTIC TAB (*BKC) 1 TABLET PO (08:56)
[2021-10-15] MEDS: CLOPIDOGREL BISULFATE 75 MG TABLET PO (08:56)
[2021-10-15] MEDS: hydrALAZINE HCL 50 MG TABLET PO ×3 (08:57→17:37)
[2021-10-15] MEDS: NEBIVOLOL HCL 5 MG TABLET 20 MG PO (08:57)
[2021-10-15] MEDS: PANTOPRAZOLE 40 MG TABLET PO (08:57)
[2021-10-15] MEDS: amLODIPine BESYLATE 5 MG TABLET 10 MG PO (08:57)
[2021-10-15] MEDS: FINASTERIDE 5 MG TABLET PO (08:58)
[2021-10-15] MEDS: ASPIRIN 81 MG ENTERIC TABLET PO (08:58)
[2021-10-15] MEDS: ENOXAPARIN 40 MG/0.4 ML SYRINGE SUB-Q (08:58)
[2021-10-15] MEDS: FUROSEMIDE INJ 40 MG/4 ML VIAL IV PUSH ×2 (08:58→20:42)
[2021-10-15] MEDS: allopurinoL 300 MG TABLET PO (08:58)
[2021-10-15] MEDS: INSULIN ASPART MIX 70/30 100 UNITS/ML SUB-Q ×2 (09:05→17:32)
--- NOTE | 2021-10-15 09:49 | PM.PNCARD ---
Progress Note: A&P Assessment and Plan (1) Acute on chronic heart failure with preserved ejection fraction: Code(s): I50.33 - Acute on chronic diastolic (congestive) heart failure Status: Acute Assessment and Plan: Continue furosemide 40 mg IV q.12 hours. Will give an additional dose of metolazone 2.5 mg p.o. x1 today. Check a basic metabolic by now. continues other regimen including aspirin, clopidogrel, hydralazine, nebivolol, lisinopril, amlodipine. Follow basic metabolic panel. Continue statin (2) Hypertension associated with type 2 diabetes mellitus: Code(s): E11.59 - Type 2 diabetes mellitus with other circulatory complications; I15.2 - Hypertension secondary to endocrine disorders Status: Acute Assessment and Plan: Per hospitalist (3) JUANITA (acute kidney injury): Code(s): N17.9 - Acute kidney failure, unspecified Status: Acute Assessment and Plan: Stable (4) Pneumonia: Qualifiers: Laterality: right Lung location: unspecified part of lung Pneumonia type: due to unspecified organism Qualified Code(s): J18.9 - Pneumonia, unspecified organism Code(s): J18.9 - Pneumonia, unspecified organism Status: Acute Assessment and Plan: On antibiotics (5) Elevated troponin: Code(s): R77.8 - Other specified abnormalities of plasma proteins Status: Acute Assessment and Plan: Not related acute coronary syndrome Subjective Date/time seen: 10/15/21 09:49 Interval history: 75-year-old admitted for heart failure and pneumonia Date of service 10/15/2021: He did diuresed nicely yesterday and swelling is better. He denies any chest pain or shortness of breath Review of Systems Review of Systems: All systems reviewed & are unremarkable except as noted in HPI and below Constitutional: Constitutional: Denies body ache(s), Reports chills and Denies excessive sweating Eyes: Eyes: Denies blurry vision ENT: Reports Normal hearing present Cardiovascular: Cardiovascular: Denies chest pain, Reports pedal edema, Reports leg edema and Reports dyspnea Respiratory: Respiratory: Denies chest congestion and Reports dyspnea Gastrointestinal: Gastrointestinal: Denies abdominal pain Genitourinary: Genitourinary: Denies hematuria Musculoskeletal: Musculoskeletal: Denies back pain Integumentary/Breasts: Skin/Breast: Denies breast pain Neurologic: Reports Normal hearing present, Denies Abnormal speech present and Denies behavioral changes Psychiatric: Psychiatric: Denies anxiety and Denies behavioral changes Endocrine: Endocrine: Denies excessive sweating Hematologic/Lymphatic: Hematologic/Lymphatic: Denies easy bleeding Allergic/Immunologic: Allergic/Immunologic: Denies GI upset with certain foods Exam Narrative: Awake alert appears stated age Const: General: comfortable; No in distress HENMT: General nose exam: Normal nares present Eyes: Sclera: sclerae normal Neck: Neck: supple Carotids: no bruits Chest: Other: No reproducible chest wall pain to palpation Resp: Auscultation: rales Cardio: Rate: regular rate Rhythm: regular rhythm Heart sounds: no gallops and Murmur heart sound present GI: Inspection: non-distended Skin: General skin exam: normal color Neuro: Cranial nerves: Yes Normal hearing present Speech: normal speech and No Abnormal speech present Sensory Exam: normal sensation Extrem: General: edema Other: 1-2 + bilateral extremity edema Psych: Mental Status: mental status grossly normal Objective Data Vital Signs Vital Signs: Vital Signs - 24 hr 10/14/21 10:00 10/14/21 12:00 10/14/21 12:00 Temperature 36.5 C Pulse Rate 74 75 73 Respiratory Rate 20 Blood Pressure 111/52 L Pulse Oximetry 94 Oxygen Delivery Oxygen Flow Rate Fraction of Inspired Oxygen 10/14/21 14:00 10/14/21 15:35 10/14/21 16:00 Temperature 36.8 C Pulse Rate 76 73 Respirat
[2021-10-15] MEDS: metOLazone 2.5 MG TABLET PO (10:34)
[2021-10-15 10:49] LABS: Hematocrit 30.1 % (42.0-52.0); Hemoglobin 9.3 g/dL (14.0-18.0); Mean Corpuscular HGB Conc 30.9 g/dl (32-36); Mean Corpuscular Hemoglobin 27.7 pg (26-34); Mean Corpuscular Volume 89.6 fl (80-100); Mean Platelet Volume 9.8 fl (7.4-10.4); Platelet Count Result 425 k/mm3 (150-375); Red Blood Count 3.36 M/mm3 (4.6-6.20); Red Cell Distribution Width 15.1 % (11.5-14.5); White Blood Count 9.4 K/mm3 (4.5-10.0)
[2021-10-15 10:52] LABS: Anion Gap 6 mmol/L (8-16); Blood Urea Nitrogen 40 mg/dL (9-20); Calcium 8.1 mg/dL (8.4-10.2); Carbon Dioxide 28 mmol/L (22-30); Chloride 102 mmol/L (98-107); Estimated CRCL calculation 37 ml/min; Estimated Glomerular Filt Rate 35; Glucose 176 mg/dL (65-110); Potassium 3.5 mmol/L (3.4-5.0); Sodium 136 mmol/L (137-145)
[2021-10-15 12:02] LABS: Glucose Point of Care 179 mg/dl (65-105)
--- NOTE | 2021-10-15 12:54 | PM.IMPN ---
Progress Note: A&P Assessment and Plan (1) Sepsis with acute hypoxic respiratory failure: Code(s): A41.9 - Sepsis, unspecified organism; R65.20 - Severe sepsis without septic shock; J96.01 - Acute respiratory failure with hypoxia Status: Acute Assessment and Plan: Resolved, blood cultures negative Question related to pneumonia. He is on antibiotics and doing well. White count resolved. (2) Pneumonia: Qualifiers: Laterality: right Lung location: unspecified part of lung Pneumonia type: due to unspecified organism Qualified Code(s): J18.9 - Pneumonia, unspecified organism Code(s): J18.9 - Pneumonia, unspecified organism Status: Acute Assessment and Plan: Suspect continued mycoplasma infection from his last admission since he got worse despite treatment with vancomycin and Zosyn but improved with levaquin, anticipate discharge tomorrow on oral Levaquin (3) CHF exacerbation: Qualifiers: Heart failure type: systolic Qualified Code(s): I50.23 - Acute on chronic systolic (congestive) heart failure Code(s): I50.9 - Heart failure, unspecified Status: Acute Assessment and Plan: Continue diuretics. Breathing is much better. (4) Stage 3b chronic kidney disease: Code(s): N18.32 - Chronic kidney disease, stage 3b Status: Acute Assessment and Plan: Creatinine is stable compared to baseline. Subjective Date/time seen: 10/15/21 12:54 No new complaints. Respiratory status is doing well. Denies shortness of breath Exam Narrative: General: Patient resting comfortably in bed, no acute distress HEENT: Atraumatic, normocephalic, mucous membranes moist CV: Regular rate and rhythm, S1, S2, loud systolic murmur noted Lungs: Clear to auscultation bilaterally Abdomen: Soft, nontender, nondistended Extremities: Normal to inspection, 1+ pitting edema b/l Skin: No rashes noted, no lesions or wounds seen Psych: Euthymic, normal affect Neuro: Cranial nerves 2-12 grossly intact, strength 5/5 upper and lower extremities noted Const: Other: Chronically ill-appearing, but obese, BiPAP in place HENMT: Other: head is normocephalic atraumatic, mucous membranes are tacky, no oral pharyngeal erythema, crowded posterior oropharynx Eyes: Other: Right pupil is reactive, left eye is covered by opaque scar, positive conjunctival pallor, no scleral icterus Neck: Other: Large neck circumference, supple, nontender, no JVD Resp: Other: Crackles at the bases bilaterally, wheezing upper anterior ann,, no increased work of breathing Cardio: Other: Regular rate, regular rhythm, 2+ bilateral radial pedal pulses GI: Other: Soft, nontender, positive bowel sounds Skin: Other: Generalized pallor, non jaundice, warm to touch Neuro: Other: Alert and oriented, speech is clear, no facial asymmetry, no localizing neurologic deficits noted on limited exam Extrem: Other: 2+ pitting edema, no cyanosis, no clubbing Psych: Other: Appropriate mood and affect, pleasant and cooperative, judgment insight intact Objective Data Vital Signs Vital Signs: Vital Signs - 24 hr 10/14/21 14:00 10/14/21 15:35 10/14/21 16:00 Temperature 98.2 F Pulse Rate 76 73 Respiratory Rate 18 Blood Pressure 128/60 Pulse Oximetry 95 Oxygen Delivery Nasal Cannula Oxygen Flow Rate 2 Fraction of Inspired Oxygen 10/14/21 16:00 10/14/21 18:03 10/14/21 18:04 Temperature 100.1 F H 100.1 F H Pulse Rate 74 Respiratory Rate Blood Pressure Pulse Oximetry Oxygen Delivery Oxygen Flow Rate Fraction of Inspired Oxygen 10/14/21 20:00 10/14/21 20:00 10/14/21 20:00 Temperature 99.0 F Pulse Rate 72 72 73 Respiratory Rate 18 18 Blood Pressure 147/56 H Pulse Oximetry 95 98 Oxygen Delivery Nasal Cannula Oxygen Flow Rate 2 Fraction of Inspired Oxygen 50 10/14/21 21:09 10/14/21 21:09 10/14/21 22:00
--- NOTE | 2021-10-15 13:15 | PCOTNOTE ---
Attempted to see patient this pm, however patient refused. Pt reported assisting with ADLs this am stating, She helps me with them everyday. Pt declined activity out of bed stating, I don't feel like it. I just got done eating, and I'm going to take a nap.
[2021-10-15 17:17] LABS: Glucose Point of Care 203 mg/dl (65-105)
[2021-10-15 20:37] LABS: Glucose Point of Care 132 mg/dl (65-105)
[2021-10-15] MEDS: TERAZOSIN HCL 5 MG CAPSULE 10 MG PO (20:42)
[2021-10-16] VITALS (10 sets, daily range): BP systolic 109–138; BP diastolic 52–79; PULSE 60–103; RESP 18–20; TEMP 36.1–37.2; O2SAT 93–100
[2021-10-16 05:30] LABS: Estimated CRCL calculation 30 ml/min; Estimated Glomerular Filt Rate 33
[2021-10-16 08:12] LABS: Glucose Point of Care 105 mg/dl (65-105)
[2021-10-16] MEDS: INSULIN ASPART MIX 70/30 100 UNITS/ML SUB-Q (09:35)
[2021-10-16] MEDS: FUROSEMIDE INJ 40 MG/4 ML VIAL IV PUSH (09:38)
[2021-10-16] MEDS: NEBIVOLOL HCL 2.5 MG TABLET 20 MG PO (09:39)
[2021-10-16] MEDS: ROSUVASTATIN 10 MG TABLET PO (09:41)
[2021-10-16] MEDS: allopurinoL 300 MG TABLET PO (09:41)
[2021-10-16] MEDS: ENOXAPARIN 40 MG/0.4 ML SYRINGE SUB-Q (09:41)
[2021-10-16] MEDS: CLOPIDOGREL BISULFATE 75 MG TABLET PO (09:42)
[2021-10-16] MEDS: amLODIPine BESYLATE 5 MG TABLET 10 MG PO (09:42)
[2021-10-16] MEDS: FINASTERIDE 5 MG TABLET PO (09:43)
[2021-10-16] MEDS: CHOLECALCIFEROL 400 UNITS TABLET (VIT D) PO (09:43)
[2021-10-16] MEDS: lisinopriL 20 MG TABLET PO (09:43)
[2021-10-16] MEDS: hydrALAZINE HCL 50 MG TABLET PO ×2 (09:43→13:23)
[2021-10-16] MEDS: MULTIVITAMINS THERAPEUTIC TAB (*BKC) 1 TABLET PO (09:43)
[2021-10-16] MEDS: PANTOPRAZOLE 40 MG TABLET PO (09:43)
[2021-10-16] MEDS: ASPIRIN 81 MG ENTERIC TABLET PO (09:44)
--- NOTE | 2021-10-16 11:37 | PM.DS ---
DS: Admitting Diagnosis Discharge Date October 16, 2021 Admitting Diagnosis Pneumonia and CHF exacerbation. DS: Discharge Diagnosis Discharge Diagnosis (1) Sepsis with acute hypoxic respiratory failure: Code(s): A41.9 - Sepsis, unspecified organism; R65.20 - Severe sepsis without septic shock; J96.01 - Acute respiratory failure with hypoxia Status: Acute Assessment and Plan: Resolved, blood cultures negative Question related to pneumonia. He is on antibiotics and doing well. White count resolved. (2) Pneumonia: Qualifiers: Laterality: right Lung location: unspecified part of lung Pneumonia type: due to unspecified organism Qualified Code(s): J18.9 - Pneumonia, unspecified organism Code(s): J18.9 - Pneumonia, unspecified organism Status: Acute Assessment and Plan: Oral Levaquin on discharge. (3) CHF exacerbation: Qualifiers: Heart failure type: systolic Qualified Code(s): I50.23 - Acute on chronic systolic (congestive) heart failure Code(s): I50.9 - Heart failure, unspecified Status: Acute Assessment and Plan: Continue diuretics. Will continue his home dose of diuretics on discharge. followup Cardiology (4) Stage 3b chronic kidney disease: Code(s): N18.32 - Chronic kidney disease, stage 3b Status: Acute Assessment and Plan: Creatinine is stable compared to baseline. DS: Summary Hospital Course Hospital Course: Patient was admitted sepsis shortness of breath. Upon evaluation examination patient is felt to be mild CHF he was given increasing dose of IV Lasix and did well. Discharged also on Lasix dose. He will also follow Cardiology. Also note patient had probable pneumonia and was given Levaquin responded well. As well as Levaquin discharge. He has been afebrile a chemist organic. Time Spent with Patient Time attestation: Total time spent providing and/or coordinating discharge services: Exam Narrative: General: Patient resting comfortably in bed, no acute distress HEENT: Atraumatic, normocephalic, mucous membranes moist CV: Regular rate and rhythm, S1, S2, loud systolic murmur noted Lungs: Clear to auscultation bilaterally Abdomen: Soft, nontender, nondistended Extremities: Normal to inspection, 1+ pitting edema b/l Skin: No rashes noted, no lesions or wounds seen Psych: Euthymic, normal affect Neuro: Cranial nerves 2-12 grossly intact, strength 5/5 upper and lower extremities noted Const: Other: Chronically ill-appearing, but obese, BiPAP in place HENMT: Other: head is normocephalic atraumatic, mucous membranes are tacky, no oral pharyngeal erythema, crowded posterior oropharynx Eyes: Other: Right pupil is reactive, left eye is covered by opaque scar, positive conjunctival pallor, no scleral icterus Neck: Other: Large neck circumference, supple, nontender, no JVD Resp: Other: Crackles at the bases bilaterally, wheezing upper anterior ann,, no increased work of breathing Cardio: Other: Regular rate, regular rhythm, 2+ bilateral radial pedal pulses GI: Other: Soft, nontender, positive bowel sounds Skin: Other: Generalized pallor, non jaundice, warm to touch Neuro: Other: Alert and oriented, speech is clear, no facial asymmetry, no localizing neurologic deficits noted on limited exam Extrem: Other: 2+ pitting edema, no cyanosis, no clubbing Psych: Other: Appropriate mood and affect, pleasant and cooperative, judgment insight intact DS: Data Data Completed and Pending Labs on day of discharge: Labs from last 24 hours 10/16/21 10/16/21 10/15/21 07:41 04:51 20:34 Creatinine 2.00 H Estim Creat Clear Calc 30 Estimated GFR 33 L POC Capillary Glucose 105 132 H 10/15/21 10/15/21 17:11 11:11 Creatinine Estim Creat Clear Calc Estimated GFR POC Capillary Glucose 203 H 179 H Preliminary micro results at discharge 10/11/21 21:58 Blood
--- NOTE | 2021-10-16 11:49 | PM.PNCARD ---
Progress Note: A&P Assessment and Plan (1) Acute on chronic heart failure with preserved ejection fraction: Code(s): I50.33 - Acute on chronic diastolic (congestive) heart failure Status: Acute Assessment and Plan: DC IV furosemide today. Resume bumetanide. Continues other regimen including aspirin, clopidogrel, hydralazine, nebivolol, lisinopril, amlodipine. Continue statin (2) Hypertension associated with type 2 diabetes mellitus: Code(s): E11.59 - Type 2 diabetes mellitus with other circulatory complications; I15.2 - Hypertension secondary to endocrine disorders Status: Acute Assessment and Plan: Per hospitalist (3) JUANITA (acute kidney injury): Code(s): N17.9 - Acute kidney failure, unspecified Status: Acute Assessment and Plan: Stable (4) Pneumonia: Qualifiers: Laterality: right Lung location: unspecified part of lung Pneumonia type: due to unspecified organism Qualified Code(s): J18.9 - Pneumonia, unspecified organism Code(s): J18.9 - Pneumonia, unspecified organism Status: Acute Assessment and Plan: On antibiotics (5) Elevated troponin: Code(s): R77.8 - Other specified abnormalities of plasma proteins Status: Acute Assessment and Plan: Not related acute coronary syndrome Subjective Date/time seen: 10/16/21 11:49 Interval history: 75-year-old admitted for heart failure and pneumonia Date of service 10/16/21: Continues to improve. No chest pain. Swelling persists but better Review of Systems Review of Systems: All systems reviewed & are unremarkable except as noted in HPI and below Constitutional: Constitutional: Denies body ache(s), Reports chills and Denies excessive sweating Eyes: Eyes: Denies blurry vision ENT: Reports Normal hearing present Cardiovascular: Cardiovascular: Denies chest pain, Reports pedal edema, Reports leg edema and Reports dyspnea Respiratory: Respiratory: Denies chest congestion and Reports dyspnea Gastrointestinal: Gastrointestinal: Denies abdominal pain Genitourinary: Genitourinary: Denies hematuria Musculoskeletal: Musculoskeletal: Denies back pain Integumentary/Breasts: Skin/Breast: Denies breast pain Neurologic: Reports Normal hearing present, Denies Abnormal speech present and Denies behavioral changes Psychiatric: Psychiatric: Denies anxiety and Denies behavioral changes Endocrine: Endocrine: Denies excessive sweating Hematologic/Lymphatic: Hematologic/Lymphatic: Denies easy bleeding Allergic/Immunologic: Allergic/Immunologic: Denies GI upset with certain foods Exam Narrative: Awake alert appears stated age Const: General: comfortable; No in distress HENMT: General nose exam: Normal nares present Eyes: Sclera: sclerae normal Neck: Neck: supple Carotids: no bruits Chest: Other: No reproducible chest wall pain to palpation Resp: Auscultation: rales Cardio: Rate: regular rate Rhythm: regular rhythm Heart sounds: no gallops and Murmur heart sound present GI: Inspection: non-distended Skin: General skin exam: normal color Neuro: Cranial nerves: Yes Normal hearing present Speech: normal speech and No Abnormal speech present Sensory Exam: normal sensation Extrem: General: edema Other: 1-2 + bilateral extremity edema Psych: Mental Status: mental status grossly normal Objective Data Vital Signs Vital Signs: Vital Signs - 24 hr 10/15/21 12:00 10/15/21 12:00 10/15/21 12:00 Temperature 36.3 C L Pulse Rate 75 73 Respiratory Rate 18 Blood Pressure 131/84 Pulse Oximetry 93 95 Oxygen Delivery Nasal Cannula Oxygen Flow Rate 2 Fraction of Inspired Oxygen 10/15/21 14:00 10/15/21 16:00 10/15/21 16:00 Temperature Pulse Rate 73 74 Respiratory Rate Blood Pressure Pulse Oximetry 96 Oxygen Delivery Nasal Cannula Oxygen Flow Rate 2 Fraction of Inspired Oxygen 10/15/21 16:00
[2021-10-16 12:10] LABS: Glucose Point of Care 119 mg/dl (65-105)
[2021-10-16 15:54] LABS: Pneumococcal Antigen Urine Not Detected (Not Detected)
== END 2021-10-16 13:45 | disposition home health service (06) | DRG 871 ==
LOC: ANHED 23:08 → ANHIMU 10-12 00:30
PROVIDERS: Chiropractor; Internal Medicine Cardiovascular Disease; Admitting Provider Internal Medicine; Emergency Provider Emergency Medicine; PCP Internal Medicine; Visit Provider Student in an Organized Health Care Education/Training Program
DX: A41.9 Sepsis, unspecified organism (principal); J18.9 Pneumonia, unspecified organism; J96.21 Acute and chronic respiratory failure with hypoxia; I50.43 Acute on chronic combined systolic (congestive) and diastolic (congestive) heart failure; I13.0 Hypertensive heart and chronic kidney disease with heart failure and stage 1 through stage 4 chronic kidney disease, or unspecified chronic kidney disease; N17.9 Acute kidney failure, unspecified; R65.20 Severe sepsis without septic shock; N18.32 Chronic kidney disease, stage 3b; Z20.822 Contact with and (suspected) exposure to COVID-19; E11.22 Type 2 diabetes mellitus with diabetic chronic kidney disease; E11.59 Type 2 diabetes mellitus with other circulatory complications; E66.9 Obesity, unspecified; E78.00 Pure hypercholesterolemia, unspecified; E78.5 Hyperlipidemia, unspecified; G47.33 Obstructive sleep apnea (adult) (pediatric); H17.12 Central corneal opacity, left eye; H54.7 Unspecified visual loss; I27.20 Pulmonary hypertension, unspecified; I25.10 Atherosclerotic heart disease of native coronary artery without angina pectoris; I15.2 Hypertension secondary to endocrine disorders; K21.9 Gastro-esophageal reflux disease without esophagitis; M19.90 Unspecified osteoarthritis, unspecified site; N40.0 Benign prostatic hyperplasia without lower urinary tract symptoms; R77.8 Other specified abnormalities of plasma proteins; Z95.2 Presence of prosthetic heart valve; Z95.1 Presence of aortocoronary bypass graft; Z86.16 Personal history of COVID-19; Z87.891 Personal history of nicotine dependence; Z90.79 Acquired absence of other genital organ(s); Z79.4 Long term (current) use of insulin; Z79.82 Long term (current) use of aspirin; Z79.02 Long term (current) use of antithrombotics/antiplatelets; Z88.5 Allergy status to narcotic agent; Z68.38 Body mass index [BMI] 38.0-38.9, adult; Z85.51 Personal history of malignant neoplasm of bladder
CPT/HCPCS: 36415; 36600; 71045; 80048; 80053; 80202; 81001; 82565; 82805; 82948; 83605; 83735; 83880; 84484; 85025; 85027; 87040; 87086; 87899; 93005; 94002; 96365; 96368; 96375; 97110; 97116; 97161; 97166; 97530; 97535; 99285; A9270; C9803; J0131; J0692; J1650; J1815; J1940; J1956; J2543; J3370; U0003; U0005

== ENCOUNTER → 2021-11-13 11:49 | Outpatient (CLI) | payer MEDICARE, SELFPAY ==
--- NOTE | ~2021-11-13 | MR_ITS ---
EXAMINATION: MR cervical spine wo con DATE: 11/13/2021 12:37 INDICATION: Cervical spinal stenosis. TECHNIQUE: Magnetic resonance imaging (MRI) of the cervical spine was performed without intravenous c ontrast. Sequences included sagittal T2-weighted FSE, sagittal T2-weighted FS FSE, sagittal T1-weight ed FSE, axial MERGE, and axial T2-weighted FSE. COMPARISON: Cervical spine radiograph 10/19/2019 FINDINGS: There is kyphosis of cervical spine. There is 2 mm anterolisthesis of C4 on C5 and C5 on C6 and 2 mm retrolisthesis of C6 on C7. There is mildly decreased disc height at C4-C5 and severely dec reased disc height at C5-C6 and C6-C7. Osseous central spinal canal is developmentally small from C1 to C6. There is increased T2-weighted signal intensity in the spinal cord at C4-C5 and C5-C6. The fol lowing disc levels are specifically discussed: C2-C3: The disc does not extend beyond the endplate margin. There is mild left uncovertebral joint os teoarthritis. There is moderate right and severe left facet joint osteoarthritis. There is mild right and moderate left neural foraminal stenosis. There is no central canal stenosis. C3-C4: The disc is bulging. There is severe right and mild left uncovertebral joint osteoarthritis. T here is severe right and mild left facet joint osteoarthritis. There is severe right and mild left ne ural foraminal stenosis. There is mild central canal stenosis. C4-C5: The disc is bulging. There is moderate bilateral uncovertebral joint osteoarthritis. There is severe bilateral facet joint osteoarthritis. There is moderate right and severe left neural foraminal stenosis. There is severe central canal stenosis with ventral and dorsal indentation of the cord and increased signal in the cord. C5-C6: The disc is bulging. There is severe bilateral uncovertebral joint osteoarthritis. There is se sil bilateral facet joint osteoarthritis. There is moderate bilateral neural foraminal stenosis. The re is mild central canal stenosis with ventral indentation of the cord and increased signal in the co rd. C6-C7: The disc is bulging. There is severe bilateral uncovertebral joint osteoarthritis. There is mo derate bilateral facet joint osteoarthritis. There is moderate right and mild left neural foraminal s tenosis. There is mild central canal stenosis. C7-T1: The disc does not extend beyond the endplate margin. There is no uncovertebral joint osteoarth ritis. There is moderate bilateral facet joint osteoarthritis. There is no neural foraminal stenosis. There is no central canal stenosis. IMPRESSION: 1. 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 2. Severe cervical spondylosis. Reviewed, dictated and finalized at location A.
== END ==
PROVIDERS: PCP Internal Medicine
DX: M47.13 Other spondylosis with myelopathy, cervicothoracic region (principal); M48.03 Spinal stenosis, cervicothoracic region
CPT/HCPCS: 72141

== ENCOUNTER 2021-12-16 14:12 | Outpatient (CLI) | payer MEDICARE, SELFPAY ==
--- NOTE | ~2021-12-16 | US_ITS ---
EXAMINATION: US carotid duplex BI DATE: 12/16/2021 15:43 INDICATION: Dizziness and giddiness TECHNIQUE: Grayscale, color Doppler, and pulsed Doppler images of the cervical carotid arteries were obtained. The degree of vessel stenosis is placed in one of the following categories: normal, <50%, 5 0-69%, >=70% but less than near-occlusion, near-occlusion, or total occlusion. Note that percent sten osis relative to normal distal artery lumen diameter is indirectly measured from velocity measurement s as described by Lazarus, et al. Radiology 2003; [id number]:340-346. Notes: Normal: Peak systolic velocity <125 centimeters/sec and no plaque <50%. Peak systolic velocity <125 ( EDV <40; ICA/CCA PSV ratio <2.0; used these factors only a tandem lesions or low cardiac output or co ntralateral disease) 50-69 %: PSV 125-230 (EDV 40-100; ratio 2-4) >= 70% but less than near occlusion: PSV greater than 230 (EDV > 100; ratio> 4.0) Near Occlusion: PSV that is variable; markedly narrowed lumen Occlusion: Absent flow on color/spectral Doppler and no lumen on sanchez scale. COMPARISON: None. FINDINGS: RIGHT: The right common carotid artery (CCA) peak systolic velocity (PSV) is 104 cm/s. The right internal ca rotid artery (ICA) PSV is 343 cm/s. The right ICA end-diastolic velocity (EDV) is 86 cm/s. The right ICA/CCA PSV ratio is 3.3. The external carotid artery (ECA) PSV is 183 cm/s. There is antegrade flow in the right vertebral artery. LEFT: The left CCA PSV is 82 cm/s. The left ICA PSV is 193 cm/s. The left ICA EDV is 24 cm/s. The left ICA/ CCA PSV ratio is 2.4. The ECA PSV is 105 cm/s. There is antegrade flow in the left vertebral artery. IMPRESSION: 1. Greater than 70% stenosis in the right internal carotid artery by sonographic criteria. 2. 50-69% stenosis in the left internal carotid artery by sonographic criteria. Reviewed, dictated and finalized at location B. IMPRESSION: 1. Greater than 70% stenosis in the right internal carotid artery by sonographi c criteria. 2. 50-69% stenosis in the left internal carotid artery by sonographic criteria.
== END 2021-12-16 14:13 | disposition home or self-care (01) ==
LOC: ANHIMG 14:12
PROVIDERS: PCP Internal Medicine; Visit Provider Internal Medicine
DX: R42 Dizziness and giddiness (principal); I65.23 Occlusion and stenosis of bilateral carotid arteries
CPT/HCPCS: 93880

== ENCOUNTER 2021-12-24 12:33 | Outpatient (CLI) | payer MEDICARE, SELFPAY ==
--- NOTE | ~2021-12-24 | CT_ITS ---
EXAMINATION: CTA neck DATE: 12/24/2021 13:09 INDICATION: Carotid stenosis. Dizziness and giddiness. TECHNIQUE: Computed tomographic angiography (CTA) of the neck was performed with 100 mL Omnipaque-350 intravenous contrast. Automated exposure control and iterative reconstruction technique were employe d. The dose-length product was 630.88 mGy-cm. Maximum intensity projection 3D-reconstructions were cr eated by the technologist on a separate workstation. COMPARISON: Carotid ultrasound 12/16/2021 FINDINGS: The visualized portions of the lung apices demonstrate mild emphysema. There is mild medias tinal lymphadenopathy, likely reactive. There are likely changes of ocular lens replacement surgeries . There is high attenuation material in left ocular globe with choroidal calcifications. Left vertebr al artery is dominant. There is mild stenosis of left vertebral artery. There is plaque in the proxim al internal carotid arteries. There is 81% stenosis of the proximal right internal carotid artery rel ative to normal distal artery lumen diameter (NASCET criteria). There is 42% stenosis of the proximal left internal carotid artery relative to normal distal artery lumen diameter. There is severe cervic al spondylosis. IMPRESSION: 1. 81% stenosis of the proximal right internal carotid artery relative to normal distal artery lumen diameter (NASCET criteria). 2. 42% stenosis of the proximal left internal carotid artery relative to normal distal artery lumen d iameter. Reviewed, dictated and finalized at location A. IMPRESSION: 1. 81% stenosis of the proximal right internal carotid artery relative to ebenezer l distal artery lumen diameter (NASCET criteria). 2. 42% stenosis of the proximal left internal carotid artery relative to normal distal artery lumen diameter.
[2021-12-24 12:59] LABS: Estimated Glomerular Filt Rate 45
== END 2021-12-24 12:34 | disposition home or self-care (01) ==
LOC: ANHIMG 12:41
PROVIDERS: PCP Internal Medicine; Visit Provider Internal Medicine
DX: M48.00 Spinal stenosis, site unspecified (principal); I65.23 Occlusion and stenosis of bilateral carotid arteries
CPT/HCPCS: 70498; Q9967

== ENCOUNTER → 2022-02-23 12:39 | Outpatient (CLI) | payer MEDICARE, SELFPAY ==
--- NOTE | ~2022-02-23 | US_ITS ---
EXAMINATION: US renal BI DATE: 02/23/2022 13:00 INDICATION: Chronic kidney disease TECHNIQUE: Multiple grayscale and Doppler ultrasound images of the kidneys were obtained. COMPARISON: 10/03/2021 FINDINGS: The right kidney measures 14.4 x 5.2 x 5.5 cm. The left kidney measures 14.8 x 5.2 x 4.4 cm . The kidneys demonstrate normal parenchymal echogenicity. There is no hydronephrosis. The bladder de monstrates mild wall thickening. IMPRESSION: 1. Normal kidneys without hydronephrosis. 2. Mild wall thickening of the urinary bladder which could reflect incomplete distention, cystitis, o r chronic outlet obstruction. Reviewed, dictated and finalized at location A. IMPRESSION: 1. Normal kidneys without hydronephrosis. 2. Mild wall thickening of the urinary bladder which could reflect incomplete d istention, cystitis, or chronic outlet obstruction.
== END ==
PROVIDERS: PCP Internal Medicine Nephrology; Visit Provider Internal Medicine Nephrology
DX: N18.32 Chronic kidney disease, stage 3b (principal); R93.41 Abnormal radiologic findings on diagnostic imaging of renal pelvis, ureter, or bladder
CPT/HCPCS: 76775

== ENCOUNTER 2022-05-19 14:47 | Outpatient (CLI) | payer MEDICARE, SELFPAY ==
[2022-05-19 15:03] LABS: Hematocrit 34.9 % (42.0-52.0); Hemoglobin 11.5 g/dL (14.0-18.0); Mean Corpuscular Hemoglobin 30.4 pg (26-34); Mean Corpuscular Volume 92.3 fl (80-100); Mean Platelet Volume 9.6 fl (7.4-10.4); Platelet Count Result 206 k/mm3 (150-375); Red Blood Count 3.78 M/mm3 (4.6-6.20); Red Cell Distribution Width 14.7 % (11.5-14.5); White Blood Count 7.6 K/mm3 (4.5-10.0)
[2022-05-19 15:13] LABS: Chloride 98 mmol/L (98-107)
[2022-05-19 15:14] LABS: Creatinine Urine 71.1 mg/dL; Total Protein Urine Random 39 mg/dL; Ur Ttl Prot Creatinine Ratio 0.55 mg/mg (0-0.20)
[2022-05-19 15:16] LABS: Albumin Level 4.5 g/dL (3.5-5.1); Anion Gap 10 mmol/L (8-16); Blood Urea Nitrogen 46 mg/dL (9-20); Calcium 9.2 mg/dL (8.4-10.2); Carbon Dioxide 27 mmol/L (22-30); Estimated Glomerular Filt Rate 28; Glucose 246 mg/dL (65-110); Phosphorus 3.7 mg/dL (2.5-4.5); Potassium 3.6 mmol/L (3.4-5.0); Sodium 135 mmol/L (137-145)
[2022-05-19 15:46] LABS: Parathyroid Intact 245.2 pg/mL (7.5-53.5)
== END 2022-05-19 14:48 | disposition home or self-care (01) ==
PROVIDERS: PCP Internal Medicine; Visit Provider Internal Medicine Nephrology
DX: N18.4 Chronic kidney disease, stage 4 (severe) (principal)
CPT/HCPCS: 36415; 80069; 82570; 83970; 84156; 85027

== ENCOUNTER 2022-08-12 10:32 | Outpatient (CLI) | payer MEDICARE, SELFPAY ==
[2022-08-12 11:15] LABS: Basophils Percent Auto 0.5 % (0.2-1.2); Eosinophils Absolute Auto 0.6 K/mm3 (0-0.3); Eosinophils Percent Auto 7.5 % (0-4.4); Hematocrit 32.8 % (42.0-52.0); Immature Granulocyte Absolute 0.02 K/mm3 (0.00-0.031); Immature Granulocyte Percent A 0.2 % (0-0.5); Lymphocytes Absolute Auto 2.15 K/mm3 (0.9-3.2); Lymphocytes Percent Auto 26.3 % (18.3-44.2); Mean Corpuscular HGB Conc 33.5 g/dl (32-36); Mean Corpuscular Hemoglobin 30.1 pg (26-34); Mean Corpuscular Volume 89.6 fl (80-100); Monocytes Absolute Auto 0.6 K/mm3 (0.1-0.6); Monocytes Percent Auto 7.7 % (2.6-8.5); Neutrophils Absolute Auto 4.7 K/mm3 (1.3-6.7); Neutrophils Percent Auto 57.8 % (45.5-73.1); Platelet Count Result 220 k/mm3 (150-375); Red Blood Count 3.66 M/mm3 (4.6-6.20); Red Cell Distribution Width 14.6 % (11.5-14.5); White Blood Count 8.2 K/mm3 (4.5-10.0)
[2022-08-12 11:25] LABS: Creatinine Urine 246.8 mg/dL
[2022-08-12 11:26] LABS: Alanine Aminotransferase 25 U/L (6-50); Albumin Level 4.7 g/dL (3.5-5.1); Alkaline Phosphatase 84 U/L (38-126); Anion Gap 10 mmol/L (8-16); Aspartate Amino Transferase 24 U/L (17-59); Bilirubin,Total 0.5 mg/dL (0.2-1.3); Blood Urea Nitrogen 39 mg/dL (9-20); Calcium 9.3 mg/dL (8.4-10.2); Carbon Dioxide 28 mmol/L (22-30); Chloride 102 mmol/L (98-107); Cholesterol 154 mg/dL (0-200); Estimated Glomerular Filt Rate 35; Glucose 220 mg/dL (65-110); HDL Direct 33 mg/dL; Phosphorus 3.9 mg/dL (2.5-4.5); Potassium 3.7 mmol/L (3.4-5.0); Sodium 140 mmol/L (137-145); Triglycerides 249 mg/dL (<150)
[2022-08-12 11:30] LABS: Iron 63 ug/dL (49-181)
[2022-08-12 11:37] LABS: LDL Cholesterol Direct 82 mg/dL
[2022-08-12 11:39] LABS: Parathyroid Intact 187.1 pg/mL (7.5-53.5)
[2022-08-12 11:40] LABS: Percent Iron Saturation 17 % (20-50)
[2022-08-12 12:35] LABS: MALB Creatinine Ratio 338.7 mg/g (0-30); Microalbumin Urine Random 835.8 mg/L (0-16.7)
[2022-08-12 12:35] LABS: Folic Acid > 20.0 ng/mL (2.76->20)
[2022-08-12 12:56] LABS: Creatinine Urine 254.5 mg/dL; Total Protein Urine Random 127 mg/dL
[2022-08-12 13:17] LABS: Vitamin D 25 Hydroxy 60.4 ng/mL
== END 2022-08-12 10:33 | disposition home or self-care (01) ==
PROVIDERS: PCP Internal Medicine; Visit Provider Internal Medicine Nephrology
DX: R79.89 Other specified abnormal findings of blood chemistry (principal); R53.83 Other fatigue; E11.9 Type 2 diabetes mellitus without complications; D72.829 Elevated white blood cell count, unspecified; N18.4 Chronic kidney disease, stage 4 (severe); G47.33 Obstructive sleep apnea (adult) (pediatric); E21.1 Secondary hyperparathyroidism, not elsewhere classified; I12.9 Hypertensive chronic kidney disease with stage 1 through stage 4 chronic kidney disease, or unspecified chronic kidney disease
CPT/HCPCS: 36415; 80053; 80061; 82043; 82306; 82570; 82607; 82746; 83540; 83550; 83970; 84100; 84156; 84443; 85025

== ENCOUNTER → 2022-08-27 12:24 | Outpatient (CLI) | payer MEDICARE, SELFPAY ==
--- NOTE | ~2022-08-27 | MR_ITS ---
EXAMINATION: MR lumbar spine wo con DATE: 08/27/2022 13:10 INDICATION: Low back pain. TECHNIQUE: Magnetic resonance imaging (MRI) of the lumbar spine was performed without intravenous con trast. Sequences included sagittal T2-weighted FSE, sagittal T2-weighted FS FSE, sagittal T1-weighted FSE, and axial T2-weighted FSE. COMPARISON: Lumbar spine MRI 08/27/2021 FINDINGS: There is 8 degrees dextrocurvature of lumbar spine. There is 3 mm retrolisthesis of L5 on S 1. There is mild chronic anterior wedging of T11-L1 vertebral bodies. There are Schmorl's nodes at mu ltiple levels. There is mildly decreased disc height at L2-L3, severely decreased disc height at L4-L 5, and moderately decreased disc height at L5-S1. The conus medullaris is at L1. The following disc l evels are specifically discussed: L1-L2: The disc is mildly bulging. There is moderate right and mild left facet joint osteoarthritis. There is mild bilateral neural foraminal stenosis. There is no central canal stenosis. L2-L3: The disc is bulging and has an annular fissure. There is moderate right and mild left facet kristine int osteoarthritis. There is mild bilateral neural foraminal stenosis. There is mild central canal st enosis. L3-L4: The disc is bulging and has an annular fissure. There is mild bilateral facet joint osteoarthr itis. There is moderate bilateral neural foraminal stenosis. There is mild central canal stenosis. L4-L5: The disc is bulging and has an annular fissure. There is severe bilateral facet joint osteoart hritis. There is moderate bilateral neural foraminal stenosis. There is mild central canal stenosis. L5-S1: The disc is bulging with superimposed right foraminal extrusion. There is severe bilateral fac et joint osteoarthritis. There is moderate bilateral neural foraminal stenosis. There is mild central canal stenosis. IMPRESSION: 1. Severe lumbar spondylosis, stable from 08/27/2021. Reviewed, dictated and finalized at location E.
== END ==
PROVIDERS: PCP Internal Medicine
DX: M47.816 Spondylosis without myelopathy or radiculopathy, lumbar region (principal)
CPT/HCPCS: 72148

== ENCOUNTER 2022-08-28 11:46 | Outpatient (CLI) | payer MEDICARE, SELFPAY ==
[2022-08-28 12:39] LABS: Albumin Level 4.7 g/dL (3.5-5.1); Anion Gap 8 mmol/L (8-16); Blood Urea Nitrogen 51 mg/dL (9-20); Calcium 9.1 mg/dL (8.4-10.2); Carbon Dioxide 31 mmol/L (22-30); Chloride 99 mmol/L (98-107); Estimated Glomerular Filt Rate 29; Glucose 255 mg/dL (65-110); Phosphorus 3.9 mg/dL (2.5-4.5); Potassium 3.8 mmol/L (3.4-5.0); Sodium 138 mmol/L (137-145)
== END 2022-08-28 11:47 | disposition home or self-care (01) ==
PROVIDERS: PCP Internal Medicine; Visit Provider Internal Medicine Nephrology
DX: N18.32 Chronic kidney disease, stage 3b (principal)
CPT/HCPCS: 36415; 80069

== ENCOUNTER 2023-01-26 12:06 | Outpatient (CLI) | payer MEDICARE, SELFPAY ==
[2023-01-26 13:04] LABS: Hematocrit 34.1 % (42.0-52.0); Hemoglobin 11.4 g/dL (14.0-18.0); Mean Corpuscular HGB Conc 33.4 g/dl (32-36); Mean Corpuscular Hemoglobin 31.2 pg (26-34); Mean Corpuscular Volume 93.4 fl (80-100); Mean Platelet Volume 10.4 fl (7.4-10.4); Platelet Count Result 204 k/mm3 (150-375); Red Blood Count 3.65 M/mm3 (4.6-6.20); Red Cell Distribution Width 14.6 % (11.5-14.5); White Blood Count 6.7 K/mm3 (4.5-10.0)
[2023-01-26 13:11] LABS: Albumin Level 4.7 g/dL (3.5-5.1); Anion Gap 11 mmol/L (8-16); Blood Urea Nitrogen 53 mg/dL (9-20); Calcium 9.4 mg/dL (8.4-10.2); Carbon Dioxide 30 mmol/L (22-30); Chloride 97 mmol/L (98-107); Estimated Glomerular Filt Rate 20; Glucose 229 mg/dL (65-110); Phosphorus 3.9 mg/dL (2.5-4.5); Potassium 3.6 mmol/L (3.4-5.0); Sodium 138 mmol/L (137-145)
[2023-01-26 13:23] LABS: Parathyroid Intact 282.5 pg/mL (7.5-53.5)
[2023-01-26 13:37] LABS: Creatinine Urine 60.8 mg/dL; Total Protein Urine Random 18 mg/dL
== END 2023-01-26 12:07 | disposition home or self-care (01) ==
PROVIDERS: PCP Internal Medicine; Referring Provider Internal Medicine; Visit Provider Internal Medicine Nephrology
DX: E21.1 Secondary hyperparathyroidism, not elsewhere classified (principal); N18.32 Chronic kidney disease, stage 3b
CPT/HCPCS: 36415; 80069; 82306; 82570; 83970; 84156; 85027

== ENCOUNTER 2023-03-08 09:53 | Outpatient (CLI) | payer MEDICARE, SELFPAY ==
[2023-03-08 10:29] LABS: Basophils Absolute Auto 0.1 K/mm3 (0.0-0.1); Basophils Percent Auto 0.7 % (0.2-1.2); Eosinophils Absolute Auto 0.4 K/mm3 (0-0.3); Eosinophils Percent Auto 5.2 % (0-4.4); Hematocrit 34.2 % (42.0-52.0); Hemoglobin 11.2 g/dL (14.0-18.0); Immature Granulocyte Absolute 0.03 K/mm3 (0.00-0.031); Immature Granulocyte Percent A 0.4 % (0-0.5); Lymphocytes Absolute Auto 1.85 K/mm3 (0.9-3.2); Lymphocytes Percent Auto 24.2 % (18.3-44.2); Mean Corpuscular HGB Conc 32.7 g/dl (32-36); Mean Corpuscular Hemoglobin 30.9 pg (26-34); Mean Corpuscular Volume 94.2 fl (80-100); Monocytes Absolute Auto 0.7 K/mm3 (0.1-0.6); Monocytes Percent Auto 8.7 % (2.6-8.5); Neutrophils Absolute Auto 4.6 K/mm3 (1.3-6.7); Neutrophils Percent Auto 60.8 % (45.5-73.1); Platelet Count Result 195 k/mm3 (150-375); Red Blood Count 3.63 M/mm3 (4.6-6.20); Red Cell Distribution Width 14.7 % (11.5-14.5); White Blood Count 7.6 K/mm3 (4.5-10.0)
[2023-03-08 10:42] LABS: Alanine Aminotransferase 43 U/L (6-50); Albumin Level 4.5 g/dL (3.5-5.1); Alkaline Phosphatase 80 U/L (38-126); Anion Gap 8 mmol/L (8-16); Aspartate Amino Transferase 42 U/L (17-59); Bilirubin,Total 0.7 mg/dL (0.2-1.3); Blood Urea Nitrogen 38 mg/dL (9-20); Calcium 9.2 mg/dL (8.4-10.2); Carbon Dioxide 30 mmol/L (22-30); Chloride 100 mmol/L (98-107); Cholesterol 151 mg/dL (0-200); Estimated Glomerular Filt Rate 24; Glucose 166 mg/dL (65-110); HDL Direct 32 mg/dL; Magnesium 2.4 mg/dL (1.6-2.3); Sodium 138 mmol/L (137-145); Triglycerides 289 mg/dL (<150)
[2023-03-08 10:45] LABS: Albumin Level 4.5 g/dL (3.5-5.1); Anion Gap 11 mmol/L (8-16); Blood Urea Nitrogen 37 mg/dL (9-20); Calcium 9.3 mg/dL (8.4-10.2); Carbon Dioxide 27 mmol/L (22-30); Chloride 100 mmol/L (98-107); Estimated Glomerular Filt Rate 25; Glucose 166 mg/dL (65-110); Phosphorus 4.1 mg/dL (2.5-4.5); Sodium 138 mmol/L (137-145)
[2023-03-08 10:53] LABS: LDL Cholesterol Direct 74 mg/dL
[2023-03-08 11:02] LABS: Vitamin D 25 Hydroxy 54.5 ng/mL
[2023-03-08 11:12] LABS: MALB Creatinine Ratio 80.8 mg/g (0-30); Microalbumin Urine Random 222.2 mg/L (0-16.7)
[2023-03-08 11:39] LABS: Hemoglobin A1C 8.2 % (<5.7)
[2023-03-08 11:48] LABS: Iron 72 ug/dL (49-181)
[2023-03-08 11:58] LABS: Percent Iron Saturation 22 % (20-50)
[2023-03-08 12:08] LABS: Prostate Specific Antigen 2.5 ng/mL (< OR = 4.0)
== END 2023-03-08 09:54 | disposition home or self-care (01) ==
PROVIDERS: Physician Assistant; PCP Internal Medicine; Referring Provider Internal Medicine Nephrology; Visit Provider Internal Medicine
DX: D64.9 Anemia, unspecified (principal); E11.9 Type 2 diabetes mellitus without complications; E78.00 Pure hypercholesterolemia, unspecified; E78.5 Hyperlipidemia, unspecified; I10 Essential (primary) hypertension; R79.89 Other specified abnormal findings of blood chemistry; N18.32 Chronic kidney disease, stage 3b; Z12.5 Encounter for screening for malignant neoplasm of prostate; E55.9 Vitamin D deficiency, unspecified
CPT/HCPCS: 36415; 80053; 80061; 80069; 82043; 82306; 83036; 83540; 83550; 83735; 84153; 84443; 85025; G0103

== ENCOUNTER 2023-06-10 11:56 | Outpatient (CLI) | payer MEDICARE, SELFPAY ==
[2023-06-10 12:34] LABS: Hemoglobin 12.4 g/dL (14.0-18.0); Mean Corpuscular HGB Conc 31.8 g/dl (32-36); Mean Corpuscular Hemoglobin 28.4 pg (26-34); Mean Corpuscular Volume 89.2 fl (80-100); Mean Platelet Volume 10.5 fl (7.4-10.4); Platelet Count Result 207 k/mm3 (150-375); Red Blood Count 4.37 M/mm3 (4.6-6.20); Red Cell Distribution Width 14.6 % (11.5-14.5); White Blood Count 7.3 K/mm3 (4.5-10.0)
[2023-06-10 12:37] LABS: Albumin Level 4.5 g/dL (3.5-5.1); Anion Gap 9 mmol/L (8-16); Blood Urea Nitrogen 29 mg/dL (9-20); Calcium 9.5 mg/dL (8.4-10.2); Carbon Dioxide 25 mmol/L (22-30); Chloride 106 mmol/L (98-107); Estimated Glomerular Filt Rate 37; Glucose 168 mg/dL (65-110); Potassium 3.9 mmol/L (3.4-5.0); Sodium 140 mmol/L (137-145)
[2023-06-10 12:43] LABS: Creatinine Urine 24.7 mg/dL; Total Protein Urine Random 26 mg/dL; Ur Ttl Prot Creatinine Ratio 1.05 mg/mg (0-0.20)
[2023-06-10 12:49] LABS: Parathyroid Intact 222.5 pg/mL (7.5-53.5)
== END 2023-06-10 11:57 | disposition home or self-care (01) ==
LOC: ANHLAB 12:00
PROVIDERS: PCP Internal Medicine; Visit Provider Internal Medicine Nephrology
DX: N18.32 Chronic kidney disease, stage 3b (principal)
CPT/HCPCS: 36415; 80069; 82570; 83970; 84156; 85027

== ENCOUNTER 2023-06-16 15:10 | Outpatient (CLI) | payer MEDICARE, SELFPAY ==
[2023-06-16 17:03] LABS: Vitamin D 25 Hydroxy 61.1 ng/mL
== END 2023-06-16 15:11 | disposition home or self-care (01) ==
LOC: ANHLAB 15:12
PROVIDERS: PCP Internal Medicine; Visit Provider Internal Medicine Nephrology
DX: E21.1 Secondary hyperparathyroidism, not elsewhere classified (principal)
CPT/HCPCS: 36415; 82306

== ENCOUNTER 2023-08-04 10:57 | Outpatient (CLI) | payer MEDICARE, SELFPAY ==
[2023-08-04 12:00] LABS: Albumin Level 4.4 g/dL (3.5-5.1); Anion Gap 5 mmol/L (4-12); Blood Urea Nitrogen 29 mg/dL (9-20); Calcium 9.5 mg/dL (8.4-10.2); Carbon Dioxide 32 mmol/L (22-30); Chloride 104 mmol/L (98-107); Estimated Glomerular Filt Rate 34; Glucose 233 mg/dL (65-110); Phosphorus 3.5 mg/dL (2.5-4.5); Sodium 141 mmol/L (137-145)
== END 2023-08-04 10:58 | disposition home or self-care (01) ==
PROVIDERS: PCP Internal Medicine; Visit Provider Internal Medicine Nephrology
DX: N18.32 Chronic kidney disease, stage 3b (principal)
CPT/HCPCS: 36415; 80069

== ENCOUNTER 2023-10-25 13:18 | Outpatient (CLI) | payer MEDICARE, SELFPAY ==
[2023-10-28 10:32] LABS: Immunoglobulin G, Serum 603 mg/dL (600-1540); Immunoglobulin G1 426 mg/dL (382-929); Immunoglobulin G2 37 mg/dL (241-700); Immunoglobulin G3 12 mg/dL (22-178); Immunoglobulin G4 12.2 mg/dL (4.0-86.0)
[2023-11-09 07:51] LABS: S. pneumonia Serotype 12 (12F) <0.1; S. pneumonia Serotype 14 (14) 0.9; S. pneumonia Serotype 17 (17F) 0.2; S. pneumonia Serotype 19 (19F) 0.3; S. pneumonia Serotype 2 (2) 0.7; S. pneumonia Serotype 3 (3) <0.1; S. pneumonia Serotype 4 (4) <0.1; S. pneumonia Serotype 5 (5) <0.1; S. pneumonia Serotype 8 (8) 0.2; S. pneumonia Serotype 9 (9N) 0.1
[2023-11-09 07:52] LABS: S. pneumonia Serotype 18C (56) 0.2; S. pneumonia Serotype 20 (20) 0.5; S. pneumonia Serotype 22 (22F) 0.1; S. pneumonia Serotype 23 (23F) 0.1; S. pneumonia Serotype 34 (10A) <0.1; S. pneumonia Serotype 43 (11A) 0.2; S. pneumonia Serotype 51 (7F) 0.1
[2023-11-09 07:53] LABS: S. pneumonia Serotype 54 (15B) 0.1; S. pneumonia Serotype 57 (19A) <0.1; S. pneumonia Serotype 68 (9V) <0.1; S. pneumonia Serotype 6B (26) <0.1; S. pneumonia Serotype 70 (33F) 0.4
[2023-11-09 07:55] LABS: S. pneumonia Serotype 1 (1) <0.1
== END 2023-10-25 13:19 | disposition home or self-care (01) ==
PROVIDERS: PCP Internal Medicine; Visit Provider Allergy & Immunology
DX: D84.9 Immunodeficiency, unspecified (principal)
CPT/HCPCS: 36415; 82784; 82787; 86317; 86648; 86774

== ENCOUNTER 2023-12-10 12:55 | Outpatient (CLI) | payer MEDICARE, SELFPAY ==
[2023-12-10 14:13] LABS: Creatinine Urine 86.2 mg/dL; Total Protein Urine Random 68 mg/dL; Ur Ttl Prot Creatinine Ratio 0.79 mg/mg (0-0.20)
[2023-12-10 14:33] LABS: Hematocrit 40.1 % (42.0-52.0); Mean Corpuscular HGB Conc 32.4 g/dl (32-36); Mean Corpuscular Hemoglobin 30.2 pg (26-34); Mean Corpuscular Volume 93.3 fl (80-100); Mean Platelet Volume 10.4 fl (7.4-10.4); Platelet Count Result 204 k/mm3 (150-375); Red Cell Distribution Width 15.4 % (11.5-14.5); White Blood Count 6.8 K/mm3 (4.5-10.0)
[2023-12-10 14:46] LABS: Albumin Level 4.4 g/dL (3.5-5.1); Anion Gap 16 mmol/L (4-12); Blood Urea Nitrogen 33 mg/dL (9-20); Calcium 9.2 mg/dL (8.4-10.2); Carbon Dioxide 26 mmol/L (22-30); Chloride 100 mmol/L (98-107); Estimated Glomerular Filt Rate 29; Glucose 219 mg/dL (65-110); Phosphorus 3.2 mg/dL (2.5-4.5); Potassium 3.7 mmol/L (3.4-5.0); Sodium 142 mmol/L (137-145)
[2023-12-10 15:12] LABS: Parathyroid Intact 183.2 pg/mL (7.5-53.5)
[2023-12-10 15:16] LABS: Vitamin D 25 Hydroxy 59.6 ng/mL
== END 2023-12-10 12:56 | disposition home or self-care (01) ==
LOC: ANHLAB 12:59
PROVIDERS: PCP Internal Medicine; Visit Provider Internal Medicine Nephrology
DX: E11.9 Type 2 diabetes mellitus without complications (principal); E78.5 Hyperlipidemia, unspecified; G47.33 Obstructive sleep apnea (adult) (pediatric); I12.9 Hypertensive chronic kidney disease with stage 1 through stage 4 chronic kidney disease, or unspecified chronic kidney disease; N18.32 Chronic kidney disease, stage 3b; E21.1 Secondary hyperparathyroidism, not elsewhere classified
CPT/HCPCS: 36415; 80069; 82306; 82570; 83970; 84156; 85027

== ENCOUNTER 2024-01-05 14:16 | Outpatient (CLI) | payer MEDICARE, SELFPAY ==
--- NOTE | 2024-01-05 | ECHO_ITS ---
Patient Info Name: Gabriel Celeste Age: 78 years : 1945 Gender: Male Ht: 68 in Wt: 269 lbs BSA: 2.48 m2 HR: 87 bpm BP: 143 / 79 mmHg Heart Rhythm: Sinus Rhythm Technical Quality: Fair Exam Date: 01/05/2024 2:51 PM Exam Location: Echo Lab Patient Status: Outpatient Admit Date: 01/05/2024 Staff Ordering Physician: DanielleMalick MD Financial Legal Assistant: Marbella Zazueta RDCS Attending Provider: Danielle, Malick Bryan MD Referring Physician: Danielle EMERSON; Exam Type: CA echo dop color flow w con Study Info Indications I35.0 - Nonrheumatic aortic (valve) stenosis Complete two-dimensional, color flow and Doppler transthoracic echocardiogram is performed with contrast to opacify the left ventricle and to improve the deliniation of the left ventricle endocardial borders. Contrast/Agitated Saline Contrast/Ag. Saline: Definity Amount: 5.00 ml Existing IV Access: Yes IV Access Condition: patent with no signs of infiltration Summary 1. Left ventricular chamber dimension is moderately enlarged. 2. Left ventricular systolic function is severely reduced, estimated at 25-30%. 3. There is moderately increased left ventricular wall thickness. 4. The left ventricular diastolic function is grade I diastolic dysfunction. 5. Right ventricular systolic function is normal. 6. Left atrial chamber dimension is mildly enlarged. 7. Right atrial chamber dimension is mildly enlarged. 8. The bioprosthetic aortic valve is well seated. Mean gradient of 9mmHg. Peak velocity of 2.33 m/s. 9. There is no aortic valve regurgitation. 10. There is mild mitral valve regurgitation. 11. There is mild tricuspid valve regurgitation. Left Ventricle Left ventricular chamber dimension is moderately enlarged. Left ventricular systolic function is severely reduced, estimated at 25-30%. There is moderately increased left ventricular wall thickness. Left ventricular septal wall motion is abnormal with septal motion related to a post-operative state. The left ventricular diastolic function is grade I diastolic dysfunction. Right Ventricle Right ventricular chamber dimension is normal. Right ventricular systolic function is normal. Left Atria Left atrial chamber dimension is mildly enlarged. Right Atria Right atrial chamber dimension is mildly enlarged. Atrial Septum Intact interatrial septum visualized by color flow imaging. Aortic Valve The bioprosthetic aortic valve is well seated. Mean gradient of 9mmHg. Peak velocity of 2.33 m/s. There is no aortic valve regurgitation. Pulmonic Valve The pulmonic valve is not well visualized. There is no pulmonic regurgitation. Mitral Valve There is mild mitral valve regurgitation. The mitral valve annulus is moderately calcified. Tricuspid Valve There is mild tricuspid valve regurgitation. Pericardium/Pleural There is no pericardial effusion. Inferior Vena Cava Normal inferior vena cava with >50% collapse upon inspiration consistent with normal right atrial pressure, 3 mmHg. Aorta The aortic root size at the sinus of Valsalva is normal. Left Ventricular Outflow Tract Name Value Normal LVOT 2D LVOT Diameter 2.18 cm LVOT Doppler LVOT Peak
[2024-01-05] MEDS: PERFLUTREN LIPID MICROSPHERES 1.5 ML VIAL DILUTED TO 10 ML TOTAL VOLUME IV PUSH (15:20)
--- NOTE | 2024-01-11 09:26 | IVDEFINITY ---
Prior to administration of IV Definity the patient was educated on the risks and benefits of the imaging enhancing agent including potential adverse side effects. The patient verbalized understanding. Allergies were verified. No exclusion criteria were identified and at least one of the following inclusion criteria were met: 1) physician request, 2) patient technically difficult to image (per the [place] Society of Echocardiography guidelines of two or more segments not discernable within the apical view), or 3) questionable left ventricular function. ?
== END 2024-01-05 14:17 | disposition home or self-care (01) ==
LOC: ANHCARD 14:19
PROVIDERS: PCP Internal Medicine; Visit Provider Thoracic Surgery (Cardiothoracic Vascular Surgery)
DX: I08.3 Combined rheumatic disorders of mitral, aortic and tricuspid valves (principal); I50.30 Unspecified diastolic (congestive) heart failure; Z95.4 Presence of other heart-valve replacement
CPT/HCPCS: C8929; Q9957

== ENCOUNTER 2024-03-23 13:22 | Emergency (ER) | payer MEDICARE, SELFPAY ==
--- NOTE | ~2024-03-23 | XR_ITS ---
CHEST RADIOGRAPH, PA AND LATERAL CLINICAL HISTORY: cough for 4-5 days left upper crackles hx of smoking . COMPARISON: 10/11/2021 TECHNIQUE: PA and lateral views of the chest. FINDINGS Sternal wires and mediastinal clips are identified, the wires are midline and intact. Valvular ring in the aortic position. The remainder of the cardiomediastinal silhouette is otherwise unremarkable. Increased interstitial markings are identified bilaterally, findings suggesting mild pulmonary vascul ar congestion. Blunting of the right costophrenic sulcus suggesting a small right-sided pleural effusion. The remainder the lungs are clear. Fixation hardware within the lower cervical spine. IMPRESSION: Mild pulmonary vascular congestion and small right-sided pleural effusion. Reviewed, dictated and finalized at location A. HANDLING SUPERVISOR
[2024-03-23 13:45] VITALS: BP 137/73; PULSE 94; RESP 18; TEMP 37.2; O2SAT 96
[2024-03-23 13:51] VITALS: BP 137/73; PULSE 94; RESP 18; TEMP 37.2; O2SAT 96
--- NOTE | 2024-03-23 14:21 | ED.GENADULT ---
HPI - General Adult General Chief complaint: Upper Respiratory Infection Stated complaint: cough Time Seen by Provider: 03/23/24 13:55 Source: patient, family, RN notes reviewed and old records reviewed Mode of arrival: ambulatory Limitations: no limitations History of Present Illness HPI narrative: 78 year old male accompanied by grandson and with complaints of one week duration of cough with some shortness of breath. Patient reports that family member gave him a Z-pack and he took last dose today. reports concern of cough and congestion due to patient scheduled for cardiac cath and stent placement on Wednesday at [facility]. Patient has long cardiac medical history with previous cabbage, aortic valve replacement, previous 2 stents in 2021, CHF and is diabetic with decreased renal function. reports that highest temperature reported at 99.2F. reports that she was recently diagnosed with pneumonia in the past 2 weeks with resolved symptoms. MD complaint: cough, shortness of breath Onset (ago): week(s) (1) Severity: moderate Quality: other (croupy cough) Treatments prior to arrival: other (took Z-pack) Related Data Home Medications Medication Instructions Recorded Confirmed aspirin 81 mg tablet,delayed 81 mg PO DAILY 04/14/19 03/23/24 release (Adult Aspirin Regimen) rosuvastatin 10 mg tablet 10 mg PO DAILY 04/14/19 03/23/24 multivitamin (Multiple Vitamins 1 tablet PO DAILY 06/28/19 03/23/24 tablet) alpha lipoic acid 600 mg capsule 600 mg PO DAILY 12/12/20 03/23/24 hydralazine 50 mg tablet 50 mg PO TID 12/12/20 03/23/24 bumetanide 2 mg tablet 2 mg PO BID 07/29/21 03/23/24 nitroglycerin 400 mcg/spray 1 spray sublingual Q5MIN chest pain 07/29/21 03/23/24 translingual clopidogrel 75 mg tablet 75 mg PO DAILY 09/30/21 03/23/24 metoprolol tartrate 25 mg tablet 25 mg PO DAILY 12/15/23 03/23/24 amitriptyline 25 mg tablet 25 mg PO DAILY 03/23/24 03/23/24 sacubitril 49 mg-valsartan 51 mg 1 tablet PO DAILY 03/23/24 03/23/24 tablet (Entresto) semaglutide 0.25 mg or 0.5 mg (2 0.5 mg subcut WEEKLY 03/23/24 03/23/24 mg/3 mL) subcutaneous pen injector (Mems-ID) Allergies Allergy/AdvReac Type Severity Reaction Status Date / Time codeine AdvReac Intermediate Itching Verified 03/23/24 13:41 tramadol AdvReac Mild Nausea And Verified 03/23/24 13:41 Vomiting Review of Systems Review of Systems: CONSTITUTIONAL: Reports malaise, chills, sweats, or fever. EYES: Denies visual changes, redness, or discharge. ENT: Reports rhinorrhea, congestion, no sinus pain, no otalgia and no sore throat. CARDIOVASCULAR: Denies chest pain, palpitations, or edema. RESPIRATORY: Reports croupy cough that is productive at times.?REports dyspnea with exertion GASTROINTESTINAL: Denies abdominal pain, nausea, vomiting, diarrhea SKIN: Denies rash or itching. MUSCULOSKELETAL: Denies myalgia. NEUROLOGIC: Denies headache. All systems reviewed & are unremarkable except as noted in HPI and below PMFSH Past Medical History Medical History Arthritis Blindness of left eye BPH (benign prostatic hyperplasia) CAD (coronary artery disease) CHF (congestive heart failure) Echocardiogram June 2021 EF of 55-60%, nuclear stress test demonstrated normal perfusion but enlarged left ventricle in declining EF to 42%, LORENE performed 07/30/2021 to further determine valve pathology demonstrated mild left ventricular systolic dysfunction with EF of 45-50% and [id number] left atrial enlargement with bioprosthetic valve without significant findings Chronic GERD Diabetes HTN (hypertension) Hypercholesterolemia Hyperlipidemia Obesity Obstructive sleep apnea treated with BiPAP Type 2 diabetes mellitus Surgical History Surgical History History of aortic valve replacement with bioprosthetic valve (10/2013) Georgina goodwin seen valve History of cardiac catheterization (08/2021) Moderate pulmonary hypertension, patent vein grafts to the obtuse marginal and RPDA, complex high-grade stenosis to the proximal LAD beginning at the origin of the 1st septal branch and extending about 30 mm distal into the LAD crossing over the diagonal branches as well History of neck surgery History of transurethral resection of prostate (12/2020) Hx of LASIK S/P CABG (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) Saphenous vein graft to obtuse marginal, saphenous vein graft to PDA Family History Family History Mother Family history of heart disease in male family member before age 55 Acute myocardial infarction Diabetes mellitus Father Cancer Sibling Diabetes mellitus Sibling Hypertension Social History Social History Smoking packs per day: 4 Smoking cigarettes per day: 80.0 Years smoked: 30 Smoking pack-years: 120.00 Smoking status: Former smoker Tobacco type: cigarettes Second hand tobacco smoke exposure: Yes Smoking end date: 05/03/86 Alcohol intake: former Drinks per week: 3 Substance use: never Substance use type: does not use Do You Feel Safe in your Home?: Yes Lack of Transportation: No Lack of Food: Never True Current Housing: I Have Housing Concerned About Future Housing: No Difficulty Paying Gas/Electric Bills: No Difficulty Paying for Meds: No Currently Unemployed: No Education: Trade/Vocational Certificate Difficulty w/ Childcare or Family Care: No Living arrangements: with family Additional living arrangements comments: He lives at home with his of 42 years. They raised 4 children. 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 Gender identity (if verbalized by the patient): Male Spiritual care concerns: No Comments At time of signature, agree with nursing past medical, surgical, social and family history. There is no relevant family history pertinent to the presenting complaint Exam Narrative: GENERAL: Chronic ill appearing, well-nourished,obese, and in no acute distress. HEAD: Normocephalic EYES: PERRLA, conjunctivae clear ENT: Nares clear, turbinates edematous and erythematous, clear discharge. Mucous membranes moist. TM pearly sanchez with dull light reflex bilaterally; no tragal tenderness. Oropharynx erythematous without lesions. Tonsils not enlarged and without exudate, no drooling, no hoarseness, no trismus, uvula midline.post nasal drainage present NECK: Supple. No lymphadenopathy CHEST: scattered crackles bases on auscultation, breath sounds equal. No wheezing, rhonchi,positive for rales, or stridor. No respiratory distress, speaks in full sentences.SO2 96% on room air cough present HEART: Regular rate and rhythm. aortic valve replacement murmur heard. rate 94,trace pedal and pretibial edema. SKIN: Warm, dry, no rash. NEURO: Alert and oriented x3. PSYCH: Normal mood and affect Course Course Emergency Course: Patient is aware of diagnosis, understands and agrees to treatment plan.? Anticipatory guidance given.? Patient agrees to follow-up as directed and is aware of reasons to seek care at the emergency department. Portions of this record may have been created with voice recognition software Level of Care: Express Care Visit Vital Signs Vital signs: Vital Signs Temperature 37.2 C 03/23/24 13:45 Pulse Rate 94 03/23/24 13:45 Respiratory Rate 18 03/23/24 13:45 Blood Pressure 137/73 03/23/24 13:45 Pulse Oximetry 96 03/23/24 13:45 Temperature 37.2 C 03/23/24 13:51 Pulse Rate 94 03/23/24 13:51 Respiratory Rate 18 03/23/24 13:51 Blood Pressure 137/73 03/23/24 13:51 Pulse Oximetry 96 03/23/24 13:51 Reviewed Medical Decision Making Differential Diagnosis Differential Diagnosis: URI with cough and congestion, dyspnea with exertion, CHF, CAD, pleural effusion pneumonia Medical Records Medical records reviewed: Yes I reviewed the external patient's medical records. Vital Signs Vital Signs: Vital Signs Temperature 37.2 C 03/23/24 13:45 Pulse Rate 94 03/23/24 13:45 Respiratory Rate 18 03/23/24 13:45 Blood Pressure 137/73 03/23/24 13:45 Pulse Oximetry 96 03/23/24 13:45 Temperature 37.2 C 03/23/24 13:51 Pulse Rate 94 03/23/24 13:51 Respiratory Rate 18 03/23/24 13:51 Blood Pressure 137/73 03/23/24 13:51 Pulse Oximetry 96 03/23/24 13:51 reviewed Imaging Data Attestation: I personally reviewed and interpreted this imaging study as follows: My impression: mild pulmonary vascular congestion, small right pleural effusion Radiologist's impression: Gabriel Celeste??78??M??1945 ? Allergy/Adv: codeine, tramadol Close Chest X-Ray (Signed) Melanie Soni - 03/23/24 14:22 Launch?[facility] [address] [place] [address] XRay Report Signed Patient: Gabriel Celeste : 1945 MR#: [id number] Age: 78 Acct:[id number] Loc: [facility] ADM Date: 03/23/24Attending Dr: Ordering Physician: Lily Berry APRN Date of Service: 03/23/24 Procedure(s): XR chest 2V Accession Number(s): [id number] cc: Miguel Torres DO; Lily Berry APRN~ CHEST RADIOGRAPH, PA AND LATERAL CLINICAL HISTORY: cough for 4-5 days left upper crackles hx of smoking . COMPARISON: 10/11/2021 TECHNIQUE: PA and lateral views of the chest. FINDINGS Sternal wires and mediastinal clips are identified, the wires are midline and intact. Valvular ring in the aortic position. The remainder of the cardiomediastinal silhouette is otherwise unremarkable. Increased interstitial markings are identified bilaterally, findings suggesting mild pulmonary vascular congestion. Blunting of the right costophrenic sulcus suggesting a small right-sided pleural effusion. The remainder the lungs are clear. Fixation hardware within the lower cervical spine. IMPRESSION: Mild pulmonary vascular congestion and small right-sided pleural effusion. Reviewed, dictated and finalized at location A. OR INVESTMENT ANALYST Dictated By: Melanie Soni MD 03/23/24 1422 Signed By: <Electronically signed by Melanie Soni MD in OV> Critical Care Time Critical Care Time Critical Care Time: No Discharge Plan Discharge Clinical Impression: Pleural effusion on right, Pulmonary vascular congestion Patient Disposition: Home, Self-Care Condition: Stable Instructions: Antibiotic Form, Pleural Effusion (DC) Additional Instructions: Increase fluids especially juices and water [id number] cough and cold medicine of your choice for your symptoms Continue your inhaler/nebulizer as directed heat to the face 20-30 minutes 4-6 times a day for pain Salt water gargles, throat lozenges or throat sprays as desired Antibiotic as directed--finished the medication Call your staff cytotechnologist today and let them know what is going on with patient so decision can be made in regards to upcoming procedure on Wednesday. If your symptoms persist, change or worsen significantly before you can contact your personal physician then please, without delay, go to the emergency department for further evaluation. Follow-up with PCP in 7-10 days or sooner if needed Follow up with PCP soon in regards to your blood pressure which is elevated above threshold for referral. Blood pressure above 120/80 may indicate pre-hypertension. 137/73 if any increase in shortness of breath, chest pain. or any dizziness go directly to the emergency room Prescriptions: New amoxicillin-pot clavulanate 875-125 mg tablet 1 tablet PO Q12H Qty: 20 0RF No Action amitriptyline 25 mg tablet 25 mg PO DAILY Entresto 49-51 mg tablet 1 tablet PO DAILY Ozempic 0.25 mg or 0.5 mg (2 mg/3 mL) pen injector 0.5 mg subcut WEEKLY Rx Instructions: for 4 weeks metoprolol tartrate 25 mg tablet 25 mg PO DAILY aspirin [Adult Aspirin Regimen] 81 mg tablet,delayed release (DR/EC) 81 mg PO DAILY Hold Instructions: Resume on 12/30/20. rosuvastatin 10 mg tablet 10 mg PO DAILY multivitamin [Multiple Vitamins] Tablet 1 tablet PO DAILY calcitriol 0.25 mcg capsule 0.25 mcg PO 3XW Qty: 60 3RF Rx Instructions: administer after dialysis on dialysis days hydralazine 50 mg tablet 50 mg PO TID alpha lipoic acid 600 mg Capsule 600 mg PO DAILY bumetanide 2 mg tablet 2 mg PO BID nitroglycerin 400 mcg/spray [place],Non-Aerosol 1 spray SUBLINGUAL Q5MIN clopidogrel 75 mg tablet 75 mg PO DAILY azelastine 137 mcg (0.1 %) aerosol,spray 2 spray intranasal Q12H Qty: 30 2RF Rx Instructions: administer into each nostril betamethasone valerate 0.1 % cream 1 applic topical BID Qty: 15 1RF hydroxyzine HCl 10 mg tablet 10 mg PO TID PRN (Reason: anxiety) Qty: 60 1RF ergocalciferol (vitamin D2) 1,250 mcg (50,000 unit) capsule 1,250 mcg PO WEEKLY Qty: 14 3RF hydrochlorothiazide 25 mg tablet 25 mg PO DAILY Qty: 90 3RF amlodipine 10 mg tablet See Rx Instructions .ROUTE .COMPLEX Qty: 90 3RF Dose Instruction: TAKE 1 TABLET EVERY DAY Rx Instructions: TAKE 1 TABLET EVERY DAY finasteride 5 mg tablet 5 mg PO DAILY Qty: 90 3RF allopurinol 300 mg tablet 300 mg PO DAILY Qty: 90 3RF Humulin R U-500 (Conc) Kwikpen 500 unit/mL (3 mL) insulin pen See Rx Instructions subcut TID Qty: 20 3RF Rx Instructions: sliding scale subcutaneously three times a day as directed up to 300U daily omeprazole 20 mg capsule,delayed release(DR/EC) 20 mg PO DAILY Qty: 90 3RF fluticasone propionate 50 mcg/actuation spray,suspension 2 spray intranasal DAILY PRN (Reason: nasal congestion) Qty: 48 3RF Rx Instructions: administer into each nostril dapagliflozin propanediol [Farxiga] 10 mg tablet 10 mg PO DAILY Qty: 90 3RF terazosin 10 mg capsule 10 mg PO DAILY Qty: 90 3RF doxycycline hyclate 100 mg tablet 100 mg PO BID Qty: 20 0RF lidocaine 5 % adhesive patch,medicated 1 patch topical DAILY Qty: 30 2RF Rx Instructions: leave on most painful area for up to 12 hrs Follow-up/Referrals: Miguel Torres DO [Primary Care Provider] - Time of Disposition: 14:46 Quality Bigelow Coma Scale Eyes: Open Verbal: Oriented and Alert Motor: Follows Commands Bigelow Coma Total Score: 15
== END 2024-03-23 14:59 | disposition home or self-care (01) ==
PROVIDERS: Emergency Provider Registered Nurse; PCP Internal Medicine
DX: J90 Pleural effusion, not elsewhere classified (principal); R09.89 Other specified symptoms and signs involving the circulatory and respiratory systems; Z87.891 Personal history of nicotine dependence; I11.0 Hypertensive heart disease with heart failure; I50.9 Heart failure, unspecified; I25.10 Atherosclerotic heart disease of native coronary artery without angina pectoris; N40.0 Benign prostatic hyperplasia without lower urinary tract symptoms; E11.9 Type 2 diabetes mellitus without complications; E78.00 Pure hypercholesterolemia, unspecified; E78.5 Hyperlipidemia, unspecified; G47.33 Obstructive sleep apnea (adult) (pediatric); K21.9 Gastro-esophageal reflux disease without esophagitis; M19.90 Unspecified osteoarthritis, unspecified site; E66.9 Obesity, unspecified; Z68.41 Body mass index [BMI] 40.0-44.9, adult; Z95.2 Presence of prosthetic heart valve; Z95.1 Presence of aortocoronary bypass graft; Z79.82 Long term (current) use of aspirin; Z95.5 Presence of coronary angioplasty implant and graft
CPT/HCPCS: 71046; 99213; G0463

== ENCOUNTER 2024-03-25 11:16 | Outpatient (CLI) | payer MEDICARE, SELFPAY ==
[2024-03-25 11:46] LABS: Basophils Percent Auto 0.5 % (0.2-1.2); Eosinophils Absolute Auto 0.4 K/mm3 (0-0.3); Eosinophils Percent Auto 5.3 % (0-4.4); Hematocrit 38.5 % (42.0-52.0); Hemoglobin 12.7 g/dL (14.0-18.0); Immature Granulocyte Absolute 0.02 K/mm3 (0.00-0.031); Immature Granulocyte Percent A 0.3 % (0-0.5); Lymphocytes Absolute Auto 1.72 K/mm3 (0.9-3.2); Lymphocytes Percent Auto 22.6 % (18.3-44.2); Mean Corpuscular Hemoglobin 29.5 pg (26-34); Mean Corpuscular Volume 89.5 fl (80-100); Mean Platelet Volume 9.8 fl (7.4-10.4); Monocytes Absolute Auto 0.7 K/mm3 (0.1-0.6); Monocytes Percent Auto 8.8 % (2.6-8.5); Neutrophils Absolute Auto 4.8 K/mm3 (1.3-6.7); Neutrophils Percent Auto 62.5 % (45.5-73.1); Platelet Count Result 239 k/mm3 (150-375); Red Cell Distribution Width 14.2 % (11.5-14.5); White Blood Count 7.6 K/mm3 (4.5-10.0)
[2024-03-25 11:58] LABS: Alanine Aminotransferase 50 U/L (6-50); Albumin Level 4.1 g/dL (3.5-5.1); Alkaline Phosphatase 97 U/L (38-126); Anion Gap 7 mmol/L (4-12); Aspartate Amino Transferase 61 U/L (17-59); Bilirubin,Total 0.6 mg/dL (0.2-1.3); Blood Urea Nitrogen 53 mg/dL (9-20); Calcium 8.9 mg/dL (8.4-10.2); Carbon Dioxide 33 mmol/L (22-30); Chloride 95 mmol/L (98-107); Estimated Glomerular Filt Rate 23; Glucose 207 mg/dL (65-110); Potassium 3.9 mmol/L (3.4-5.0); Sodium 135 mmol/L (137-145)
== END 2024-03-25 11:17 | disposition home or self-care (01) ==
LOC: ANHLAB 11:20
PROVIDERS: PCP Internal Medicine; Visit Provider Nurse Practitioner Adult Health
DX: Z01.818 Encounter for other preprocedural examination (principal)
CPT/HCPCS: 36415; 80053; 85025

== ENCOUNTER 2024-04-13 12:51 | Outpatient (CLI) | payer MEDICARE, SELFPAY ==
[2024-04-13 14:02] LABS: Basophils Absolute Auto 0.1 K/mm3 (0.0-0.1); Basophils Percent Auto 0.7 % (0.2-1.2); Eosinophils Absolute Auto 0.4 K/mm3 (0-0.3); Eosinophils Percent Auto 4.6 % (0-4.4); Hematocrit 41.8 % (42.0-52.0); Hemoglobin 13.7 g/dL (14.0-18.0); Immature Granulocyte Absolute 0.03 K/mm3 (0.00-0.031); Immature Granulocyte Percent A 0.4 % (0-0.5); Lymphocytes Absolute Auto 2.09 K/mm3 (0.9-3.2); Lymphocytes Percent Auto 27.7 % (18.3-44.2); Mean Corpuscular HGB Conc 32.8 g/dl (32-36); Mean Corpuscular Hemoglobin 29.8 pg (26-34); Mean Corpuscular Volume 90.9 fl (80-100); Mean Platelet Volume 10.4 fl (7.4-10.4); Monocytes Absolute Auto 0.6 K/mm3 (0.1-0.6); Monocytes Percent Auto 8.1 % (2.6-8.5); Neutrophils Absolute Auto 4.4 K/mm3 (1.3-6.7); Neutrophils Percent Auto 58.5 % (45.5-73.1); Platelet Count Result 187 k/mm3 (150-375); Red Cell Distribution Width 14.8 % (11.5-14.5); White Blood Count 7.6 K/mm3 (4.5-10.0)
[2024-04-13 14:17] LABS: Alanine Aminotransferase 25 U/L (6-50); Albumin Level 4.5 g/dL (3.5-5.1); Alkaline Phosphatase 88 U/L (38-126); Anion Gap 7 mmol/L (4-12); Aspartate Amino Transferase 32 U/L (17-59); Bilirubin,Total 0.6 mg/dL (0.2-1.3); Blood Urea Nitrogen 45 mg/dL (9-20); Calcium 9.2 mg/dL (8.4-10.2); Carbon Dioxide 32 mmol/L (22-30); Chloride 98 mmol/L (98-107); Estimated Glomerular Filt Rate 29; Glucose 197 mg/dL (65-110); Potassium 3.1 mmol/L (3.4-5.0); Sodium 137 mmol/L (137-145)
== END 2024-04-13 12:52 | disposition home or self-care (01) ==
PROVIDERS: PCP Internal Medicine; Visit Provider Internal Medicine Cardiovascular Disease
DX: Z01.812 Encounter for preprocedural laboratory examination (principal)
CPT/HCPCS: 36415; 80053; 85025

== ENCOUNTER 2024-04-24 15:04 | Outpatient (CLI) | payer MEDICARE, SELFPAY ==
[2024-04-24 20:12] LABS: Albumin Level 4.2 g/dL (3.5-5.1); Anion Gap 5 mmol/L (4-12); Blood Urea Nitrogen 41 mg/dL (9-20); Calcium 9.2 mg/dL (8.4-10.2); Carbon Dioxide 37 mmol/L (22-30); Chloride 98 mmol/L (98-107); Estimated Glomerular Filt Rate 26; Glucose 247 mg/dL (65-110); Phosphorus 2.7 mg/dL (2.5-4.5); Potassium 3.5 mmol/L (3.4-5.0); Sodium 140 mmol/L (137-145)
== END 2024-04-24 15:05 | disposition home or self-care (01) ==
LOC: ANHGOSHLAB 15:06
PROVIDERS: PCP Internal Medicine; Visit Provider Internal Medicine Nephrology
DX: N18.32 Chronic kidney disease, stage 3b (principal)
CPT/HCPCS: 36415; 80069

== ENCOUNTER 2024-05-31 12:32 | Outpatient (CLI) | payer MEDICARE, SELFPAY ==
[2024-05-31 13:13] LABS: Hematocrit 39.9 % (42.0-52.0); Hemoglobin 13.1 g/dL (14.0-18.0); Mean Corpuscular HGB Conc 32.8 g/dl (32-36); Mean Corpuscular Hemoglobin 29.1 pg (26-34); Mean Corpuscular Volume 88.7 fl (80-100); Mean Platelet Volume 9.9 fl (7.4-10.4); Platelet Count Result 181 k/mm3 (150-375); Red Cell Distribution Width 13.9 % (11.5-14.5); White Blood Count 6.5 K/mm3 (4.5-10.0)
--- OUTSIDE RECORDS SUMMARY | 2024-05-31 13:22 | XMS_ITS | Encounter Summary ---
Author Organization [facility] Address [address] [place] [address] Phone Care Team Providers Care Snuff Blender Name Role Phone Arnel Gonzalez MD Primary Care Provider [phone] Yfn Gill MD Unavailable [phone] Aguila Chris MD Unavailable [phone] Malcolm Castro MD Unavailable [phone] Neeraj La MD Unavailable [phone] Armand Howard RN Unavailable Unavaila August Hsu Primary Care Provider Miguel Torres DO Primary Care Provider [phone] Encounter Details Date Type Department Care Team (Latest Contact Info) Description 08/04/2021 Orders Only [facility] Scanning, Provider Social History Tobacco Use Types Packs/Day Years Used Date Smoking Tobacco: Former Smokeless Tobacco: Never Alcohol Use Standard Drinks/Week Comments No 0 (1 standard drink = 0.6 oz pur e alcohol) AUDIT-C Answer Date Recorded Q1: How often do you have a drink containing alc ohol? Never 03/17/2021 Average Number of Drinks Not on file 021 Frequency of Binge Drinking Not on file 03/03 Sex and Gender Information Value Date Recorded Sex Assigned at Not on file Legal Sex Male 1:58 AM MARKETING FINANCE SPECIALIST Gender Identity Not on file Sexual Orientation Not on file documented as of this encounter Plan of Treatment Not on file documented as of this encounter Procedures Procedure Name Priority Date/Time Associated Diagnosis Comments SCAN - LABS 08/04/2021 documented in this encounter Results * SCAN - LABS (08/04/2021) us Provider Scanning Final Result documented in this encounter Visit Diagnoses Not on filedocumented in this encounter Additional Health Concerns Infection Onset Date Last Indicated Resolved Time COVID: Suspected 05/05/2022 05/05/2022 05/05/2022 12:26 PM MARKETING FINANCE SPECIALIST COVID: Suspected 05/05/2022 05/05/2022 05/05/2022 8:19 PM MARKETING FINANCE SPECIALIST COVID: Suspected 03/19/2024 03/19/2024 03/19/2024 3:22 AM MARKETING FINANCE SPECIALIST documented as of this encounter Care Teams Snuff Blender Relationship Specialty Start Date End Date Arnel Gonzalez MD [address] [address] PCP - General 07/19/13 07/05/23 August Triana PA [address] [address] PCP - General Physician Strapper 07/06/23 01/16/24 Miguel Torres DO [address] [address] PCP - General Internal Medicine 01/17/24 Yfn Gill MD [address] [address] Referring Physician Nephrology 01/22/22 Aguila Chris MD [address] [facility] [address] [place] [address] Consulting Physician Cardiology 01/22/22 [place] [address] [facility] [address] [place] [address] Consulting Physician Endocrinology Diabetes & Metabolism 01/22/22 Neeraj La MD [address] [facility] [address] [place] [address] Surgeon Vascular Surgery 01/30/22 Armand Howard, RN Registered Nurse 06/30/22 07/02/22 documented as of this encounter
--- OUTSIDE RECORDS SUMMARY | 2024-05-31 13:22 | XMS_ITS | Referral Summary ---
Author Organization [facility] Address [address] [address] Care Team Providers Care Maintenance Service Supervisor Name Role Phone SabrinaArnel barbour Primary Care Provider [phone] Source Comments [facility] Affiliates and Associated Physician Practices is amultiple site organization consisting of ambulatory clinics and hospital sitesin [place], [place] and [place]. This disclosure is being madepursuant to the Care Everywhere program and may not contain all information available regarding this patient. Last updated 18.[facility] Allergies Active Allergy Reactions Criticality Noted Date Comments Codeine Itching Medium 08/08/2013 Tramadol Unknown 10/18/2017 Medications * Be aware that medications may not be up to date on this document. Alwaysverify current medications with the patient. Medication Sig Dispensed Refills Start Date End Date Status amLODIPine (NORVASC) 5 MG tablet Take 5 mg by mouth once daily 12/18/2020 Active omeprazole (PRILOSEC) 20 MG capsule Take 20 mg by mouth once daily Active hydrALAZINE (APRESOLINE) 50 MG tablet Take 1 tablet by mouth 2 times daily 02/24/2021 Active finasteride (PROSCAR) 5 MG tablet Take 5 mg by mouth once daily Active terazosin (HYTRIN) 10 MG capsule Take 10 mg by mouth once daily Active insulin aspart (NOVOLOG) vial Inject subcutaneously 2 times daily Active lisinopril (PRINIVIL; ZESTRIL) 20 MG tablet Take 1 tablet by mouth 2 times daily 11/28/2020 Active rosuvastatin (CRESTOR) 10 MG tablet Take 10 mg by mouth once daily Active metoprolol tartrate (LOPRESSOR) 50 MG tablet Take 50 mg by mouth 2 times daily Active multivitamin daily tablet Take 1 tablet by mouth daily with food Active furosemide (LASIX) 40 MG tablet Take 1 tablet by mouth 2 times daily 03/12/2021 Active allopurinol (ZYLOPRIM) 300 MG tablet Take 1 tablet by mouth once daily 04/14/2020 Active aspirin EC (ECOTRIN) 81 MG tablet Take 81 mg by mouth once daily Active Alpha-Lipoic Acid 600 MG TABS Take 1 tablet by mouth once daily Active gabapentin (NEURONTIN) 300 MG capsule Take 1 capsule by mouth 5 times daily 01/23/2021 Active vitamin D3 (CHOLECALCIFEROL) 25 MCG (1000 UNITS) tablet Take by mouth once daily Active pregabalin (LYRICA) 50 MG capsule Take 1 (one) capsule by mouth 3 times daily 90 capsule 5 05/27/2021 Active Social History Tobacco Use Types Packs/Day Years Used Date Smoking Tobacco: Former Smokeless Tobacco: Never Sex and Gender Information Value Date Recorded Sex Assigned at Not on file Gender Identity Not on file Sexual Orientation Not on file Last Filed Vital Signs Vital Sign Reading Time Taken Comments Blood Pressure 136/70 05/05/2021 1:09 PM [facility] Pulse 76 05/05/2021 1:09 PM [facility] Temperature - - Respiratory Rate 14 05/05/2021 1:09 PM [facility] Oxygen Saturation 98% 05/05/2021 1:09 PM [facility] Inhaled Oxygen Concentration - - Weight 121.1 kg (267 lb) 05/05/2021 1:09 PM [facility] Height 172.7 cm (5' 8 ) 05/05/2021 1:09 PM [facility] Body Mass Index 40.6 05/05/2021 1:09 PM [facility] Plan of Treatment Not on file Care Teams Maintenance Service Supervisor Relationship Specialty Start Date End Date Arnel Gonzalez DO [address] [facility] [facility] [address] [place], [place] [id number] PCP - General 01/03/21
--- OUTSIDE RECORDS SUMMARY | 2024-05-31 13:22 | XMS_ITS | Referral Summary ---
Author Organization [facility] Address [address] [place] [address] Care Team Providers Care Crayon Molding Machine Operator Name Role Phone Yfn Gill MD Unavailable [phone] Aguila Chris MD Unavailable [phone] Malcolm Castro MD Unavailable [phone] Neeraj La MD Unavailable [phone] Miguel Torres DO Primary Care Provider [phone] Encounters Date Type Department Care Team Description 05/12/2024 Documentation [facility] Medical [facility] Cardiology [address] [place] [phone] Shila Bowers MA 05/10/2024 Telephone [facility] Cardiology [address] [place] [address] Nabil Harding MD Medication Problem 05/10/2024 8:30 AM FOUNDRY SUPERVISOR Office Visit [facility] Cardiology [address] [place] [address] Nabil Harding MD Coronary artery disease involving [place] coronary artery of [place] heart without angina pectoris (Primary Dx); S/P CABG x 2; Cardiomyopathy, ischemic; S/P angioplasty with stent; Chronic systolic congestive heart failure (CMS/HCC) (HCC); S/P aortic valve replacement with bioprosthetic valve; Hypertension associated with diabetes ([facility]); Stage 3b chronic kidney disease ([facility]); Morbid obesity with BMI of 40.0-44.9, adult ([facility]); MARY on CPAP 04/17/2024 Telephone [facility] Cardiology [address] [place] [phone] Nabil Harding MD 04/17/2024 9:30 AM FOUNDRY SUPERVISOR - 04/17/2024 11:30 AM [facility] Surgery [facility] Cardiac Catheterization Lab [id number] [place] [phone] Nabil Harding MD PCI SHAYY MAJOR CORONARY [id number] - [id number] 04/17/2024 6:10 AM FOUNDRY SUPERVISOR - 04/17/2024 3:36 PM FOUNDRY SUPERVISOR Hospital Encounter [facility] Cardiac Catheterization Lab [id number] [place] [address] Nabil Harding MD Coronary artery disease involving [place] coronary artery of [place] heart without angina pectoris Discharge Disposition: Discharge to home or self care 04/13/2024 Telephone [facility] Cardiology [address] [place] [phone] Nabil Harding MD 04/10/2024 Telephone [facility] Cardiology [address] [place] [address] [place] [phone] Nabil Harding MD 04/05/2024 3:00 PM FOUNDRY SUPERVISOR Ancillary Procedure [facility] Cardiology [address] [place] [address] [place] [phone] Chronic heart failure with preserved ejection fraction (CMS/HCC) ([facility]); S/P aortic valve replacement with bioprosthetic valve 03/27/2024 Telephone [facility] Cardiology [address] [place] [address] [place] [phone] Nabil Harding MD lab order 03/27/2024 10:30 AM FOUNDRY SUPERVISOR - 03/27/2024 12:00 PM [facility] Surgery [facility] Cardiac Catheterization Lab [id number] [place] [address] Nabil Harding MD RIGHT LEFT HEART CATHETERIZATION WITH CORONARY ANGIOGRAPHY GRAFT AND WITH OR WITHOUT LEFT VENTRICULOGRAPHY [id number] 03/27/2024 6:31 AM FOUNDRY SUPERVISOR - 03/27/2024 3:17 PM FOUNDRY SUPERVISOR Hospital Encounter [facility] Cardiac Catheterization Lab [address] [place] [address] Nabil Harding MD Coronary artery disease involving [place] coronary artery of [place] heart without angina pectoris; Cardiovascular stress test abnormal Discharge Disposition: Discharge to home or self care 03/19/2024 2:54 AM FOUNDRY SUPERVISOR - 03/19/2024 6:44 AM [facility] Emergency [facility] Emergency Department [address] [place] [phone] Reese Aguillno MD Generalized weakness (Primary Dx); Viral URI Discharge Disposition: Discharge to home or self care 03/01/2024 Telephone [facility] Medical Group Diabetes and Endocrinology [address] [place] [phone] Joseph Brush MD [facility] Medical form from Last 3 Months Allergies Active Allergy Reactions Criticality Noted Date Comments Codeine Itching Medium 08/08/2013 Hydrocodone Nausea & Vomiting Low 01/22/2022 Tramadol Nausea & Vomiting,Na usea And Vomiting,Unknown Low 10/18/2017 severe Medications terazosin (HYTRIN) 10 mg capsule take 1 capsule by oral route every day at bedtime 0 0 11/03/19 13 Active omeprazole (PriLOSEC) 20 mg capsuleIndicati ons:Treatment of Non-Bleeding Gastric Disorder Take 1 capsule (20 mg total) by mouth every morning Active finasteride (PROSCAR) 5 mg tablet Take 1 tablet (5 mg total) by mouth daily 90 tablet 3 08/02/19 20 Active allopurinoL (ZYLOPRIM) 300 mg tabletIndicatio ns:prevention of acute gout attack Take 1 tablet (300 mg total) by mouth link wire fabric 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 before breakfast 04/14/20 20 Active alpha lipoic acid 600 mg tabletIndicatio ns:pain Take 1 tablet by mouth nightly Active Accu-Chek Mareil Plus test strp strip 07/16/19 22 Active Accu-Chek Softclix Lancets lancets 07/16/19 22 Active Droplet Pen Needle 31 gauge x 16 needle 07/16/19 22 Active multivitamin tabletIndicatio ns:Vitamin Deficiency Prevention Take 1 tablet by mouth every morning Active hydrOXYzine (ATARAX) 10 mg tabletIndicatio ns:anxiety Take 1 tablet (10 mg total) by mouth as needed 09/24/19 22 Active Accu-Chek Guide Glucose Meter misc 03/18/20 22 Active ergocalciferol (VITAMIN D) 50,000 unit capsuleIndicati ons:Vitamin D Deficiency Take 1 capsule (50,000 Units total) by mouth once a week Wednesday Active aspirin 81 mg enteric coated tablet Take 1 tablet (81 mg total) by mouth daily 30 tablet 07/15/19 23 Active amLODIPine (NORVASC) 10 mg tablet Take 1 tablet (10 mg total) by mouth daily 10/28/19 23 Active fluticasone propionate (FLONASE) 50 mcg/actuation nasal spray 12/21/19 23 Active hydrALAZINE (APRESOLINE) 50 mg tablet TAKE 1 TABLET TWICE DAILY 180 tablet 10 03/17/20 23 Active lidocaine (LIDODERM) 5 % 03/17/20 23 Active bumetanide (BUMEX) 2 mg tabletIndicatio ns:Chronic heart failure with preserved ejection fraction (CMS/HCC) (HCC) TAKE 1 TABLET TWICE DAILY 180 tablet 2 06/10/19 24 Active calcitRIOL (ROCALTROL) 0.25 mcg capsule Take 1 capsule (0.25 mcg total) by mouth daily 06/16/19 24 Active gabapentin (NEURONTIN) 300 mg capsule Take 1 capsule (300 mg total) by mouth 3 (three) times a day 06/22/19 24 Active hydroCHLOROthia zide (HYDRODIURIL) 25 mg tablet Take 1 tablet (25 mg total) by mouth daily 06/19/19 24 Active sacubitriL-vals ivet (ENTRESTO) 49-51 mg tabletIndicatio ns:chronic heart failure Take 1 tablet by mouth 2 (two) times a day 180 tablet 3 02/11/20 24 Active potassium chloride ER (KLOR-CON) 20 mEq CR tablet Take 1 tablet (20 mEq total) by mouth with evening meal 7 tablet 1 03/20/20 24 Active Additional Information Patient not taking.Reported on 05/10/2024 amitriptyline (ELAVIL) 25 mg tabletIndicatio ns:Type 2 diabetes mellitus with stage 3 chronic kidney disease, with long-term current use of insulin, unspecified whether stage 3a or 3b CKD (HCC) TAKE 1 TABLET BY MOUTH EVERY DAY AT NIGHT 30 tablet 2 04/13/20 24 Active HumuLIN R U-500 500 unit/mL (3 mL) CONCENTRATED pen for injectionIndica tions:DM 2 Take two times a day. aB and aD up to 340 unit daily as instructed per SS. 60 mL 3 04/27/20 24 Active clopidogreL (PLAVIX) 75 mg tablet TAKE 1 TABLET EVERY DAY 90 tablet 2 05/01/20 24 Active semaglutide (Ozempic) 0.25 mg or 0.5 mg (2 mg/3 mL) pen injector injectionIndica tions:Type 2 diabetes mellitus with stage 3 chronic kidney disease, with long-term current use of insulin, unspecified whether stage 3a or 3b CKD (HCC) INJECT 0.5MG UNDER THE SKIN ONE TIME WEEKLY 9 mL 3 05/01/20 24 Active dapagliflozin propanediol (FARXIGA) 10 mg tablet 1 tablet (10 mg total) Active metoprolol XL (TOPROL-XL) 50 mg extended release tablet Take 1 tablet (50 mg total) by mouth daily 90 tablet 6 05/10/19 25 Active atorvastatin (LIPITOR) 40 mg tablet Take 1 tablet (40 mg total) by mouth nightly 90 tablet 6 05/10/19 25 Active vericiguat (Verquvo) 10 mg tablet Take 1 tablet (10 mg total) by mouth daily 90 tablet 6 05/10/19 25 Active rosuvastatin (CRESTOR) 10 mg tablet TAKE 1 TABLET EVERY DAY 90 tablet 1 03/29/20 19 2024 Discontinued(A lternate therapy) nitroglycerin (NITROSTAT) 0.[address] 1 tablet (0.4 mg total) under the tongue every 5 (five) minutes as needed for chest pain 50 tablet 06/25/19 24 2024 Discontinued(T herapy completed) metoprolol XL (TOPROL-XL) 25 mg extended release tablet TAKE 1 TABLET EVERY DAY 90 tablet 3 01/31/20 24 2024 Discontinued vericiguat (Verquvo) 10 mg tablet Take 1 tablet (10 mg total) by mouth daily 90 tablet 6 05/10/19 25 2024 Discontinued Active Problems Problem Noted Date Diagnosed Date Cardiovascular stress test abnormal 02/24/2024 Benign paroxysmal positional vertigo of left ear 09/28/2023 Cervical myelopathy with cervical radiculopathy 06/30/2022 Cervical spondylosis with myelopathy 06/09/2022 Overview (06/09/2022): Added automatically from request for surgery [id number] Carotid stenosis, right 01/07/2022 Overview (01/07/2022): Added automatically from request for surgery [id number] Assessment & Plan (04/19/2023 1:00 PM FOUNDRY SUPERVISOR): Status post TCAR. Stent patent. Continue anti-platelet therapy follow-up 6 months. Assessment & Plan (03/12/2022 5:16 PM FOUNDRY SUPERVISOR): Impression: Patient is status post right TCAR. Patient remains asymptomatic. No facial deficits are noted on exam. Patient denies difficulty swallowing or shortness of breath at this time. Surgical incision is well approximated, healing. Plan: Continue ongoing risk factor modifications. Patient to follow-up in 6 months for re-evaluation with carotid duplex. Assessment & Plan (02/12/2022 12:43 PM CDT): Status post right TCAR on 01/29/2022 completed for high-grade symptomatic right carotid stenosis. Right neck incision and left groin site are healed. He denies any complaints. He is back to his normal activities. Return in 1 month for a carotid duplex. Assessment & Plan (01/14/2022 9:31 AM CDT): High-grade symptomatic right internal carotid stenosis. After thorough review the patient's imaging I have recommended repair with TCAR. Procedure indications and all associated risks have been explained. Patient understands and agrees to proceed. Assessment & Plan (01/07/2022 2:59 PM CDT): Recent eye exam revealed ischemic changes. Follow-up duplex and CT angiogram performed an outside hospital suggested high-grade right internal carotid stenosis. I was unable to visualize these images myself therefore will have this transferred to my office and will review. Patient to follow-up in 1 week. He is to continue dual anti-platelet therapy. S/P coronary artery stent placement 11/28/2021 MARY on CPAP 04/29/2021 CKD stage 3 due to type 2 diabetes mellitus 01/01 Chronic fatigue 01/15/2021 Vitamin D deficiency 09/02/2020 Hx of colonic polyp 02/05/2020 Overview (02/05/2020): Added automatically from request for surgery [id number] Hx of colonic polyps 10/10/2019 Overview (10/10/2019): Added automatically from request for surgery [id number] History of colon polyps 07/10/2019 Overview (07/10/2019): Added automatically from request for surgery [id number] Hypertension associated with diabetes 06/29/2019 Assessment & Plan (04/19/2023 1:00 PM FOUNDRY SUPERVISOR): Hypertension chronic controlled. Continue current medical management Assessment & Plan (01/14/2022 9:31 AM CDT): Hypertension chronic and controlled. Continue current medical therapy. Chronic heart failure with p reserved ejection fraction (CMS/HCC) 06/29/2019 Morbid obesity with BMI of 40.0-44.9, adult 12/02 S/P aortic valve replacement with bioprosthetic valve 04/22/2017 Preoperative cardiovascular examination 04/22/20 17 Swelling of knee 12/25/2016 Muscle pain 08/31/2016 Overview (09/25/2016): Myalgia Chronic rhinitis 08/12/2015 Hearing loss 08/12/2015 Tinnitus of both ears 08/12/2015 Asymmetrical sensorineural hearing loss 08/12/19 16 Osteoarthritis of hand 07/17/2015 Overview (08/07/2016): Secondary osteoarthritis, left hand Class 2 severe obesity due t o excess calories with serious comorbidity and body mass index (BMI) of 39.0 to 39.9 in adult 07/17/2015 Overview (08/07/2016): Obesity, Class II, BMI 35.0-39.9, with comorbidity (see actual BMI) Coronary artery disease invo [place]ving [place] coronary artery of [place] heart without angina pectoris 05/06/2015 Overview (08/07/2016): Coronary artery disease involving [place] coronary artery of [place] heart without angina pectoris Assessment & Plan (01/07/2022 3:00 PM CDT): Stable. Continue medical therapy. Mixed diabetic hyperlipidemi a associated with type 2 diabetes mellitus ([facility]) 05/06/2015 Overview (08/07/2016): Type 2 diabetes mellitus with complication Assessment & Plan (04/19/2023 1:00 PM FOUNDRY SUPERVISOR): Hyperlipidemia chronic and controlled. Continue current medical management. Assessment & Plan (01/14/2022 9:31 AM CDT): Hyperlipidemia chronic and controlled. Continue Crestor. Assessment & Plan (01/07/2022 2:58 PM CDT): Type 2 diabetes chronic and controlled. Continue current medical therapy. Hypertensive heart disease with congestive heart failure 05/06/2015 Overview (08/07/2016): Hypertensive heart disease with diastolic heart failure Type 2 diabetes mellitus wit h diabetic chronic kidney disease 05/06/2015 Overview (12/29/2021): Type 2 diabetes mellitus with complication Assessment & Plan (09/22/2023 11:01 AM CDT): Chronic, uncontrolled Hemoglobin A1c target under 7.5, with glucoses targets in the range of 120 to 160 Start Ozempic, 0.25 mg weekly for 4 weeks and then increase to 0.5 mg week Patient advised on stopping the medication in case of severe nausea, vomiting, abdominal pain and or diarrhea Continue Humulin U 500 at current schedule before breakfast and dinner as follows: Humulin U 500 Sugars aB aD 80-110 70 55 111-135 90 65 136-150 110 85 151-180 125 100 181-250 135 120 251 300 160 140 301 185 155 Patient advised to send a message every week so we can look at his freestyle Dona data and advise on changes to his insulin regimen Disorder of aorta (CMS/HCC) 10/20/2013 Aortic valve stenosis 10/19/2013 Resolved Problems Problem Noted Date Diagnosed Date Resolved Date Obesity with body mass index 30 or greater 05/06/2015 04/13/2018 Overview (08/07/2016): Obesity (BMI 30-39.9) Chronic coronary artery disease 01/29/2015 11/28/2021 Overview (08/07/2016): CAD (coronary artery disease) History of prosthetic heart valve 12/27/2013 11/18/2022 Overview (08/07/2016): S/P aortic valve replacement with bioprosthetic valve History of coronary artery bypass surgery 12/27/2013 10/26/2017 Overview (08/07/2016): S/P CABG x 2 Immunizations Name Administration Dates Next Due Influenza, Quad, Adjuvantate d, Intramuscular 03/11/2023,02/24/2022,02/27/2021 Influenza, Quadrivalent, Hig h Dose, Preservative Free, Intrr 03/11/2023,02/24/2022,02/27/2021 Influenza, Quadrivalent, Spl it, Intramuscular 02/27/2021 Influenza, Trivalent, Adjuva nted, Intramuscular 02/01/2020 Influenza, Trivalent, IM (MDV) 02/26/2021,2019,01/31/2019 Influenza, Unspecified 02/26/2021,2019,02/01/2020,01/31 Moderna SARS-CoV-2 Monovalen t Vaccination (12+ YRS) 03/11/2021 Pneumococcal Conjugate PCV 13 01/31/2017 ZOSTER Recombinant 05/07/2021,02/18/2021 Social History Tobacco Use Types Packs/Day Years Used Date Smoking Tobacco: Former Cigarettes Q uit: 05/03/1986 Passive Smoke Exposure: Never Smokeless Tobacco: Never Alcohol Use Standard Drinks/Week Comments No 0 (1 standard drink = 0.6 oz pur e alcohol) AUDIT-C Answer Date Recorded Q1: How often do you have a drink containing alcohol? Never 04/17/2024 Q2: How many drinks containi ng alcohol do you have on a typical day when you are drinking? Patient does not drink Q3: How often do you have si x or more drinks on one occasion? Never 04/17/2024 Hunger Vital Sign Answer Date Recorded Within the past 12 months, y ou worried that your food would run out before you got the money to buy more. Never true 04/14/20 23 Within the past 12 months, t he food you bought just didn't last and you didn't have money to get more. Never true 04/14/2023 Personal Safety Answer Date Recorded Have you ever been in or are you currently in a harmful physical or emotional relationship or is someone making you feel afraid or unsafe? Denies 04/17/2024 Sex and Gender Information Value Date Recorded Sex Assigned at Not on file Legal Sex Male 1:58 AM FOUNDRY SUPERVISOR Gender Identity Not on file Sexual Orientation Not on file Last Filed Vital Signs Vital Sign Reading Time Taken Comments Blood Pressure 120/58 05/10/2024 8:51 AM FOUNDRY SUPERVISOR Pulse 86 05/10/2024 8:51 AM FOUNDRY SUPERVISOR Temperature 36.7 ??C (98 ??F) 04/17/2024 7:04 AM FOUNDRY SUPERVISOR Respiratory Rate 16 04/17/2024 7:04 AM FOUNDRY SUPERVISOR Oxygen Saturation 94% 05/10/2024 8:51 AM FOUNDRY SUPERVISOR Inhaled Oxygen Concentration - - Weight 125 kg (275 lb 9.6 oz) 05/10/2024 8:51 AM FOUNDRY SUPERVISOR Height 172.7 cm (5' 8 ) 05/10/2024 8:51 AM FOUNDRY SUPERVISOR Body Mass Index 41.9 05/10/2024 8:51 AM FOUNDRY SUPERVISOR Plan of Treatment Not on file Goals Goal Patient Goal Type Associated Problems Recent Progress Patient-Stated? Author CCM Chronic Pain Care Plan Chronic Care Management No change(04/14 11:08 AM FOUNDRY SUPERVISOR) No Pool Frey, KATHERINE Note: Problem: Chronic Pain Goals: 1. Minimize further functional decline 2. Maximize quality of life 3. Control pain Strategies: - Activity/exercise program recommendation - Conservative stepwise pain medicine strategy with multi-disciplinary approach - Recommend healthy lifestyle strategies and compensatory methods as needed Medical Devices Implanted Type Area Cnc Mill And Lathe Operator Device Identifier Shelf Expiration Date Model / Serial / Lot Total Knee Left: Knee Medtronic Inc Resolute Sherine 3mm 2.1-2.7fr 12mm 140cm Rapid Exchange Radiopaque [id number] - [id number] Implanted:Qty: 1 on 09/03/2021 by Bindu Goins MD at [facility] Med[employer] Inc 06/11/2024 [id number] / / Medtronic Inc Resolute Sherine 3.5mm 2.1-2.7fr 15mm 140cm Rapid Exchange [id number] - [id number] Implanted:Qty: 1 on 09/03/2021 by Bindu Goins MD at [facility] [employer] Inc 04/04/2024 [id number] / / Angio-Seal Vip 6fr Closere Device [id number] - [id number] Implanted:Qty: 1 on 09/03/2021 by Bindu Goins MD at [facility] TerumIntact Vascular Imya 06/02/2022 [id number] / / [employer] Enroute Uber Flex 8mm .065in 40mm 57cm Delivery System Angle Tip [id number] - [id number] Implanted:Qty: 1 on 01/29/2022 by Neeraj La MD at [facility] Right: Carotid [employer] 08/30/2024 [id number] / / [id number] Mat[employer] 4.5mm 16mm Fix Screw Bone [id number] - [id number] Implanted:Qty: 3 on 06/30/2022 by Fredy Nguyen MD at [facility] N/A: Spine Cervical MATILDE [employer] INC [id number] 6 / / Musculoskeletal Transplant [id number] Frozen Spine 7d Lordotic Trapezoid Spacer Allograft 788140 - [id number] - [id number] Implanted:Qty: 1 on 06/30/2022 by Fredy Nguyen MD at [facility] N/A: Spine Cervical Musculoskeletal Transplant [id number] 03/25/2025 [id number] / [id number] / Musculoskeletal Transplant [id number] Frozen Spine 7d Lordotic Trapezoid Spacer Allograft 943645 - [id number] - [id number] Implanted:Qty: 1 on 06/30/2022 by Fredy Nguyen MD at [facility] N/A: Spine Cervical Musculoskeletal Transplant [id number] 01/03/2025 [id number] / [id number] / Musculoskeletal Transplant [id number] Frozen Spine 7d Lordotic Trapezoid Spacer Allograft 329451 - [id number] - [id number] Implanted:Qty: 1 on 06/30/2022 by Fredy Nguyen MD at [facility] N/A: Spine Cervical Musculoskeletal Transplant [id number] 04/26/2026 [id number] / [id number] / [employer] C-Ervin Maxan 51mm Level 3 Fix Spine Cervical Anterior Plate Bone [id number] - [id number] Implanted:Qty: 1 on 06/30/2022 by Fredy Nguyen MD at [facility] N/A: Spine Cervical [employer] [id number] / / [employer] 4mm 16mm Fix Screw Bone [id number] - [id number] Implanted:Qty: 5 on 06/30/2022 by Fredy Nguyen MD at [facility] N/A: Spine Cervical [employer] [id number] / / Access Closure Inc Device 10ml 5fr Closure Mynx Control 2 Mode Balloon Catheter [id number] - [id number] Implanted:Qty: 1 on 03/27/2024 by Nabil Harding MD at [facility] Access [employer]osure Inc 01/18/2026 [id number] / / [id number] Medtronic Card Vasc Surgery 4.0 X 18mm [facility] Coronary Stent [id number] - [id number] Implanted:Qty: 1 on 04/17/2024 by Nabil Harding MD at [facility] Medtronic Card Vasc Surgery 12/26/2026 [id number] / / [id number] [employer]osure Inc Mynx Control 6-7fr 2 Mode Balloon Catheter Sealant Lock Syringe [id number] - [id number] Implanted:Qty: 1 on 04/17/2024 by Nabil Harding MD at [facility] [employer] Inc 01/05/2026 [id number] / / [id number] Procedures Procedure Name Priority Date/Time Associated Diagnosis Comments POCT GLUCOSE DEVICE Routine 04/17/2024 1 0:45 AM FOUNDRY SUPERVISOR PCI SHAYY STENT ADDTN'L COR BRANCH (+) [id number] Routine 04/17/2024 10:23 AM FOUNDRY SUPERVISOR Coronary artery disease involving [place] coronary artery of [place] heart without angina pectoris PERCUTANEOUS CORONARY LITHROTRIPSY W/ PCI (+) [id number] Routine 04/17/2024 10:23 AM FOUNDRY SUPERVISOR Coronary artery disease involving [place] coronary artery of [place] heart without angina pectoris CORONARY OCT, 1ST VESSEL Routine 04/17/2024 10:23 AM FOUNDRY SUPERVISOR Coronary artery disease involving [place] coronary artery of [place] heart without angina pectoris VASCULAR ACCESS US GUIDANCE Routine 04/17/2024 10:23 AM FOUNDRY SUPERVISOR Coronary artery disease involving [place] coronary artery of [place] heart without angina pectoris SHAYY MAJOR CORONARY Routine 04/17/2024 10 :23 AM FOUNDRY SUPERVISOR Coronary artery disease involving [place] coronary artery of [place] heart without angina pectoris MODERATE SEDATION FIRST 15MIN 5+ YEAR [address] 04/17/2024 9:00 AM FOUNDRY SUPERVISOR Coronary artery disease involving [place] coronary artery of [place] heart without angina pectoris POCT GLUCOSE DEVICE Routine 04/17/2024 8 :27 AM FOUNDRY SUPERVISOR TRANSTHORACIC ECHO (TTE) COMPLETE W DOPPLER/CF WO CONTRAST Routine 04/05/2024 4:20 PM FOUNDRY SUPERVISOR Chronic heart failure with preserved ejection fraction (CMS/HCC) (HCC) S/P aortic valve replacement with bioprosthetic valve POCT GLUCOSE DEVICE Routine 03/27/2024 1 2:08 PM FOUNDRY SUPERVISOR CORONARY FLOW VELOCITY (CFR) / INSTATANEOUS FLOW VELOCITY (IFR), 1ST VESSEL Routine 03/27/2024 11:45 AM FOUNDRY SUPERVISOR Coronary artery disease involving [place] coronary artery of [place] heart without angina pectoris Cardiovascular stress test abnormal RIGHT LEFT HEART CATHETERIZATION CORONARY GRAFT WITH WITHOUT LEFT VENTRICULOGRAPHY ANGIOGRAM Routine 03/27/2024 11:45 AM FOUNDRY SUPERVISOR Coronary artery disease involving [place] coronary artery of [place] heart without angina pectoris Cardiovascular stress test abnormal VASCULAR ACCESS US GUIDANCE Routine 03/27/2024 11:45 AM FOUNDRY SUPERVISOR Coronary artery disease involving [place] coronary artery of [place] heart without angina pectoris Cardiovascular stress test abnormal MODERATE SEDATION FIRST 15MIN 5+ YEAR [id number] 03/27/2024 10:46 AM FOUNDRY SUPERVISOR Coronary artery disease involving [place] coronary artery of [place] heart without angina pectoris Cardiovascular stress test abnormal POCT GLUCOSE DEVICE Routine 03/27/2024 7 :13 AM FOUNDRY SUPERVISOR XR CHEST 1 VIEW ED 03/19/2024 3:19 AM FOUNDRY SUPERVISOR PRO B-TYPE NATRIURETIC PEPTIDE Add-On 03/19/2024 2:21 AM FOUNDRY SUPERVISOR EGFR STAT 03/19/2024 2:21 AM FOUNDRY SUPERVISOR DIFFERENTIAL AUTO STAT 03/19/2024 2:2 1 AM FOUNDRY SUPERVISOR COMPREHENSIVE METABOLIC PANEL STAT 03/19/2024 2:21 AM FOUNDRY SUPERVISOR CBC WITH AUTO DIFFERENTIAL STAT 03/19/2024 2:21 AM FOUNDRY SUPERVISOR RESPIRATORY PATHOGEN PANEL Routine 03/19/2024 2:21 AM FOUNDRY SUPERVISOR POCT HEMOGLOBIN A1C Routine 09/22/2023 1 0:15 AM CDT Type 2 diabetes mellitus with stage 3 chronic kidney disease, with long-term current use of insulin, unspecified whether stage 3a or 3b CKD (HCC) POCT LIPID PANEL Routine 06/16/2023 8:11 AM FOUNDRY SUPERVISOR Mixed diabetic hyperlipidemia associated with type 2 diabetes mellitus (CMS/HCC) (HCC) HEPATITIS C AB REFLEX RNA QUANT PCR Routine 06/14/2019 3:47 PM FOUNDRY SUPERVISOR COLONOSCOPY REPORT 05/18/2014 from Last 3 Months or Most Recently Relevant to Health Maintenance Results * POCT glucose (04/17/2024 10:45 AM FOUNDRY SUPERVISOR) Glucose, POC 133 70 - 199 mg/dL Blood 04/17/2024 10:4 5 AM FOUNDRY SUPERVISOR 04/17/2024 10:45 AM FOUNDRY SUPERVISOR us Nabil Harding MD LAB POCT ORDERABLES - DEVICE Fin al Result [facility] [address] Department [place] [address] * SHAYY MAJOR CORONARY, VASCULAR ACCESS US GUIDANCE, CORONARY OCT, 1ST VESSEL, PERCUTANEOUS CORONARY LITHROTRIPSY W/ PCI (+) [id number], PCI SHAYY STENT ADDTN'L COR BRANCH (+) [id number] (04/17/2024 10:23 AM FOUNDRY SUPERVISOR) Anatomical Region Laterality Modality X-Ray Angiograph y Addenda Addendum by Nabil Harding MD on 04/17/2024 10:55 AM FOUNDRY SUPERVISOR CARDIAC CATHETERIZATION AND INTERVENTION REPORT DATE OF PROCEDURE: 04/17/24 INDICATION FOR PROCEDURE: ??Planned PCI ostial-proximal LAD BRIEF CLINICAL HISTORY: Tamika Aguilar is a 78 y.o. male ??with CAD, aortic stenosis status post CABG x2 with SVG to PDA, SVG to OM; status post bio AVR using 29 mm Erickson II porcine valve on 11/02/2013; status post PCI/stenting of proximal-mid LAD using 3.5 x 15 mm and 3.0 x 12 mm sherine SHAYY on 09/03/2021; hypertension, diabetes mellitus, CKD, MARY on CPAP. Patient was recently referred for cardiac catheterization in the setting of worsening dyspnea on exertion and abnormal MPI with worsening LV systolic function. ??Recent pharmacological MPI from 02/15/2024 reportedly showed LVEF 33%; small, [id number]-vqdilctn reversible defect in apical anterior and apical septal segments; fixed defect in basal inferior and mid inferior segments. ??Prior echo from 10/30/2022 reportedly showed LVEF 50-55%; normal-appearing aortic valve bioprosthesis with gradients within normal limits. ?? On 03/27/2024, patient underwent cardiac catheterization/bypass graft angiography which showed about 50-60% stenosis ostial LAD (iFR 0.84); patent previously placed proximal-mid LAD stents; chronic total occlusion mid RCA; patent 2/2 bypass grafts (patent SVG to OM; patent SVG to RPDA with 30-50% diffuse stenosis in the mid segment). ??Due to CKD, PCI of ostial LAD was not performed at that time. ??He was brought back today for planned PCI of ostial-proximal LAD. ??Patient was prehydrated with normal saline. Benefits and risks of the procedure were discussed with the patient in depth, and informed consent was taken prior to the procedure. ??Risks of the procedure include but are not limited to vascular complications like groin hematoma, retroperitoneal bleed, vessel perforation; periprocedural MO, cardiac arrhythmias, stroke, contrast induced nephropathy, and . ?? After discussing all the benefits, risks and alternatives, patient was willing to proceed with the procedure. PROCEDURES PERFORMED: Ultrasound-guided right common femoral arterial access Selective left coronary angiogram Percutaneous coronary intervention- A) intravascular ultrasound of left main, left anterior descending artery (LAD); B) intravascular lithotripsy (shockwave IVL) distal left main, ostial-proximal LAD C) balloon angioplasty and stenting of left main, ostial-proximal LAD using a 4.0 x 18 mm Medtronic sherine Wise zotarolimus eluting stent with good angiographic and IVUS results (proximal optimization into left main) Moderate sedation-CPT code 43504 and ??beyond Deployment of Mynx vascular closure device MODERATE SEDATION: Midazolam 1 mg , Fentanyl 25 mcg, start time ?0927 stop time ?? 1023, total direct ymai-sk-cglh monitoring of conscious sedation ?? 56 minutes (CPT 63881) TRAINED OBSERVER: Abisai Woods RN was trained observer for moderate sedation. ACCESS SITE: ??Right common femoral artery PROCEDURE: ??After obtaining informed consent, patient was brought to the skill labor and prepped and draped in the usual sterile manner. ??Time-out and immediate reassessment of the patient was performed. ??After local anesthesia with lidocaine, right common femoral artery access was taken with micropuncture needle under ultrasound guidance followed by insertion of a 6 [place] sheath. ??Selective left coronary angiogram was performed using 6 [place] JL4 guide catheter. Estimated blood loss was minimal. ??All specimens removed. The angiographic and other findings, and details of intervention are given below. FINDINGS: LEFT MAIN CORONARY: ??Large caliber, relatively short vessel. ??Haziness seen in the distal segment which on IVUS showed calcification. LEFT ANTERIOR DESCENDING ARTERY: ??Medium to large caliber vessel. ??There is about 60-70% hazy, calcific stenosis at the ostium with abnormal IFR (iFR 0.84) from recent cardiac catheterization. ??Previously placed stents in the proximal-mid segment are patent with minimal lumen loss. ??The vessel tapers distally and reaches the LV apex diagonal branches are medium caliber vessel without significant focal stenosis LEFT CIRCUMFLEX ARTERY: ??Large caliber vessel, gives rise to small to medium caliber OM1 branch and medium caliber OM2 branch without significant focal stenosis. RIGHT CORONARY ARTERY: ??Not injected today. ??Known to be medium caliber vessel, chronic total occlusion in the mid segment LEFT VENTRICULOGRAM: ??Not performed HEMODYNAMIC ASSESSMENT: ??Opening pressure 125/57 mmHg, closing pressure 131/59 mmHg. ?? INTERVENTION REPORT: ??Left main coronary artery ostium was selectively engaged using 6 [place] JL4 guide catheter. ??Bivalirudin was used for procedural anticoagulation. ??Patient has been on dual antiplatelet therapy, today's dose of clopidogrel was given in the skill labor. 0.014 luge wire was advanced and the stenosis at the ostium of the LAD was crossed. ??The guidewire was advanced in the distal LAD. ??IVUS was performed using a First Opinion eye IVUS catheter. ??The reference diameter was 3.7 x 4.7 mm distally, and 3.9 x 4.4 mm proximally. ??Diffuse calcification was noted, especially in the proximal most part of the LAD into the ostium and distal left main. ??In light of this, we proceeded with intravascular lithotripsy. A 2nd 0.014 luge wire was advanced in the LCX the protect the ostium of the LCX. ??Next, intravascular lithotripsy was performed using a 4.0 x 12 mm shockwave IVUS balloon. ??Multiple cycles of lithotripsy were performed in the proximal LAD, ostial LAD and distal left main. ??Balloon was taken out angiogram showed good angiographic results with IVUS. A 2.5 x 15 mm noncompliant balloon was advanced on the LCX wire, and was positioned at the ostium of the left circumflex artery- jailed balloon to preserve the [place] of the left circumflex artery. ??Next 4.0 x 18 mm Medtronic sherine Wise ZES was advanced to the target lesion with proximal part of the stent in the distal left main. ??The stent was deployed in the distal left main, ostial-proximal LAD at a maximum of 16 atmospheres. ??Postdilation was performed using a 4.0 x 15 mm noncompliant balloon at high inflation pressures. ??The LCX balloon was taken out and angiogram showed preserved flow in the LCX. ??After this, IVUS was performed which showed reasonable stent apposition in the ostial-proximal LAD. Final angiogram after removal of the guidewire showed good angiographic results with DAVID 3 flow, no angiographically visible dissection distal embolization. ??Hemostasis was achieved with successful deployment of Mynx vascular closure device. Patient tolerated procedure well without any immediate procedural complications. CONCLUSIONS: CAD-60-70% calcific stenosis ostial-proximal LAD (iFR 0.84); patent previously placed proximal-mid LAD stents; chronic total occlusion mid RCA from prior angiogram. ??Patent SVG to OM and SVG to RPDA from prior angiogram dated 03/27/2024. IFR/IVUS guided PCI-intravascular lithotripsy (shockwave IVL) distal left main, ostial-proximal LAD, followed by PTCA/stenting using a 4.0 x 18 mm Medtronic sherine Wise ZES will good IVUS and angiographic results. PLAN/RECOMMENDATIONS: ??Continue dual antiplatelet therapy, statin; and guideline directed medical treatment for CHFrEF. ??Outpatient Cardiology follow-up. ?? Voice recognition software was used to complete this document, therefore, dyslexia teacher variances may occur. Nabil Harding MD, [facility] 04/17/24 Nabil Harding MD CV CARDIAC CATH PROCEDURES Edite d Result - Final * POCT glucose (04/17/2024 8:27 AM FOUNDRY SUPERVISOR) Glucose, POC 166 70 - 199 mg/dL Blood 04/17/2024 8:27 AM FOUNDRY SUPERVISOR 04/17/2024 8:27 AM FOUNDRY SUPERVISOR Nabil Harding MD LAB POCT ORDERABLES - DEVICE Fin al Result [facility] [address] Department [place] [address] * TRANSTHORACIC ECHO (TTE) COMPLETE W DOPPLER/CF WO CONTRAST (04/05/2024 4:20 PM FOUNDRY SUPERVISOR) Anatomical Region Laterality Modality Ultrasound 04/05/2024 3:53 PM FOUNDRY SUPERVISOR Narrative 04/06/2024 7:04 AM FOUNDRY SUPERVISOR [facility] Medical [facility] Cardiology [address] [address] [address], [address], [place] [address] P:[phone] P:[phone] Echocardiographic Report Patient Name: TAMIKA AGUILAR D : 1945 Study Date: 04/05/2024 3:53:42 PM Gender: M Tech: MOISÉS Location: [place] Ref Provider: NABIL HARDING Height(Cm): 160 BSA: 2.08 Weight(Kg): 97.1 Heart Rate: 87 BP: 134 / 81 Quality: Good Order Provider: NABIL HARDING ?? PROCEDURES: Echocardiographic Report: Transthoracic echocardiogram with complete 2D, M-Mode, and color Doppler examination. With Strain Analysis. ?? INDICATIONS: I50.32 Chronic diastolic (congestive) heart failure and Z95.3 Presence of xenogenic heart valve. ?? MEASUREMENTS: 2D/MM ?Value ? Range ?Doppler ?Value ? Range Estimated EF ? 30 % ? PARESH Vmax ? 2.78 cm2 ?[ 2.00 - 4.00 ] LVIDd 2D ? 5.73 cm ? [ 4.20 - 5.80 ] ?AV Mean PG ? 10 mmHg LVIDs 2D ? 4.81 cm ? [ 2.50 - 4.00 ] ?AV Peak Tobi ?2.14 m/s ?[ 1.00 - 1.70 ] LVPWd 2D ? 1.62 cm ? [ 0.60 - 1.00 ] ?AV Peak PG ? 18 mmHg IVSd 2D ?1.58 cm ? [ 0.60 - 1.00 ] ?AV VTI ? 41.27 cm LA Volume Index ?40 cc/m2 ?[ 16 - 34 ] ?LVOT Diam ?2.30 cm ? [ 1.70 - 2.10 ] LVOT Peak Tobi ?1.43 m/s ?[ 0.70 - 1.10 ] LVOT VTI ? 32.04 cm MV E Peak Tobi ?0.77 m/s ?[ 0.60 - 1.30 ] MV A Peak Tobi ?1.18 m/s ?[ 1.00 - 1.20 ] MV Decel Time ?251 msec ?[ 104 - 258 ] Lateral E` ? 0.10 m/s ?[ 0.10 - 0.15 ] E` ? 0.06 m/s E/E` ? 8 2D/MM ?Value ? Range ?Doppler ?Value ? Range - ?? FINDINGS: Interpretation Site: Exam was interpreted at [facility]. Left Ventricle: Severe enlargement of left ventricle cavity. Severe global left ventricular systolic dysfunction. Paradoxical septal motion consistent with IVCD or bundle branch block. Impaired diastolic relaxation Grade I. Global Longitudinal Strain is -9 %. Ejection Fraction: Ejection Fraction is visually estimated to be 30 %. Right Ventricle: Normal right ventricular size. Left Atrium: There is moderate enlargement of left atrium. Right Atrium: The right atrium is normal in size. Atrial Septum: Normal atrial septum. Mitral Valve: Normal appearance of the mitral valve. Moderate mitral annular calcification. Aortic Valve: Gradients normal for valve type and size. Normal appearing aortic valve bioprosthesis. Tricuspid Valve: Normal appearance of the tricuspid valve. Trivial regurgitation in the tricuspid valve. Pulmonic Valve: Pulmonic valve not well visualized. Pericardium: Normal pericardium with no significant pericardial effusion. Aorta: Normal aortic root. IVC: Normal size and normal respiratory collapse consistent with normal right atrial pressure (<5 mmHg). Pulmonary Artery: Normal pulmonary artery size. ?? CONCLUSIONS: Severe enlargement of left ventricle cavity. Severe global left ventricular systolic dysfunction. Paradoxical septal motion consistent with IVCD or bundle branch block. Impaired diastolic relaxation Grade I. Global Longitudinal Strain is -9 %. Ejection Fraction is visually estimated to be 30 %. There is moderate enlargement of left atrium. Gradients normal for valve type and size. Normal appearing aortic valve bioprosthesis. Electronically Signed By: Jose Antonio Walls MD, [facility] 04/06/2024 7:04:01 AM FOUNDRY SUPERVISOR Procedure Note Jose Antonio Walls MD - 04/06/2024 [facility] Medical Group Cardiology [address] [facility] [address], [place] [address] [address], [place] [address] P:[phone] P:[phone] Echocardiographic Report Patient Name: TAMIKA AGUILAR D : 1945 Study Date: 04/05/2024 3:53:42 PM Gender: M Tech: Location: [facility] Provider: NABIL HARDING Height(Cm): 160 BSA: 2.08 Weight(Kg): 97.1 Heart Rate: 87 BP: 134 / 81 Quality: Good Order Provider: NABIL HARDING PROCEDURES: Echocardiographic Report: Transthoracic echocardiogram with complete 2D, M-Mode, and color Dopplerexamination. With Strain Analysis. INDICATIONS: I50.32 Chronic diastolic (congestive) heart failure and Z95.3 Presence ofxenogenic heart valve. MEASUREMENTS: 2D/MM Value Range Doppler ValueRange Estimated EF 30 % PARESH Vmax 2.78cm2 [ 2.00 - 4.00 ] LVIDd 2D 5.73 cm [ 4.20 - 5.80 ] AV Mean PG 10mmHg LVIDs 2D 4.81 cm [ 2.50 - 4.00 ] AV Peak Tobi 2.14m/s [ 1.00 - 1.70 ] LVPWd 2D 1.62 cm [ 0.60 - 1.00 ] AV Peak PG 18mmHg IVSd 2D 1.58 cm [ 0.60 - 1.00 ] AV VTI 41.27cm LA Volume Index 40 cc/m2 [ 16 - 34 ] LVOT Diam 2.30 cm[ 1.70 - 2.10 ] LVOT Peak Tobi 1.43 m/s [ 0.70 - 1.10 ] LVOT VTI 32.04 cm MV E Peak Tobi 0.77 m/s [ 0.60 - 1.30 ] MV A Peak Tobi 1.18 m/s [ 1.00 - 1.20 ] MV Decel Time 251 msec [ 104 - 258 ] Lateral E` 0.10 m/s [ 0.10 - 0.15 ] E` 0.06 m/s E/E` 8 2D/MM Value Range Doppler ValueRange - FINDINGS: Interpretation Site: Exam was interpreted at [facility]. Left Ventricle: Severe enlargement of left ventricle cavity. Severe global leftventricular systolic dysfunction. Paradoxical septal motion consistent with IVCD or bundlebranch block. Impaired diastolic relaxation Grade I. Global Longitudinal Strain is -9%. Ejection Fraction: Ejection Fraction is visually estimated to be 30 %. Right Ventricle: Normal right ventricular size. Left Atrium: There is moderate enlargement of left atrium. Right Atrium: The right atrium is normal in size. Atrial Septum: Normal atrial septum. Mitral Valve: Normal appearance of the mitral valve. Moderate mitral annularcalcification. Aortic Valve: Gradients normal for valve type and size. Normal appearing aortic valvebioprosthesis. Tricuspid Valve: Normal appearance of the tricuspid valve. Trivial regurgitation in thetricuspid valve. Pulmonic Valve: Pulmonic valve not well visualized. Pericardium: Normal pericardium with no significant pericardial effusion. Aorta: Normal aortic root. IVC: Normal size and normal respiratory collapse consistent with normal rightatrial pressure (<5 mmHg). Pulmonary Artery: Normal pulmonary artery size. CONCLUSIONS: Severe enlargement of left ventricle cavity. Severe global leftventricular systolic dysfunction. Paradoxical septal motion consistent with IVCD or bundlebranch block. Impaired diastolic relaxation Grade I. Global Longitudinal Strain is -9%. Ejection Fraction is visually estimated to be 30 %. There is moderate enlargement of left atrium. Gradients normal for valve type and size. Normal appearing aortic valvebioprosthesis. Electronically Signed By: Jose Antonio Walls MD, [facility] 04/06/2024 7:04:01 AM FOUNDRY SUPERVISOR us Nabil Harding MD CV ECHO PROCEDURES Final Result * POCT glucose (03/27/2024 12:08 PM FOUNDRY SUPERVISOR) Glucose, POC 157 70 - 199 mg/dL Blood 03/27/2024 12:0 8 PM FOUNDRY SUPERVISOR 03/27/2024 12:08 PM FOUNDRY SUPERVISOR us Nabil Harding MD LAB POCT ORDERABLES - DEVICE Fin al Result [facility] [address] Department [place] [address] * VASCULAR ACCESS US GUIDANCE, RIGHT LEFT HEART CATHETERIZATION CORONARY GRAFT WITH WITHOUT LEFT VENTRICULOGRAPHY ANGIOGRAM, CORONARY FLOW VELOCITY (CFR) / INSTATANEOUS FLOW VELOCITY (IFR), 1ST VESSEL (03/27/2024 11:45 AM FOUNDRY SUPERVISOR) Anatomical Region Laterality Modality X-Ray Angiograph y Addenda Addendum by Nabil Harding MD on 03/27/2024 12:11 PM FOUNDRY SUPERVISOR CARDIAC CATHETERIZATION AND INTERVENTION REPORT DATE OF PROCEDURE: 03/27/24 INDICATION FOR PROCEDURE: ??Worsening dyspnea on exertion, CHF with reduced ejection fraction, CAD, history of CABG x2; history of PCI/stenting of LAD BRIEF CLINICAL HISTORY: Tamika Aguilar is a 78 y.o. male with CAD, aortic stenosis status post CABG x2 with SVG to PDA, SVG to OM; status post bio AVR using 29 mm Erickson II porcine valve on 11/02/2013; status post PCI/stenting of proximal-mid LAD using 3.5 x 15 mm and 3.0 x 12 mm sherine SHAYY on 09/03/2021; hypertension, diabetes mellitus, CKD, MARY on CPAP. Patient referred for cardiac catheterization in the setting of worsening dyspnea on exertion and abnormal MPI with worsening LV systolic function. ?? Recent pharmacological MPI from 02/15/2024 reportedly showed LVEF 33%; small, [id number] reversible defect in apical anterior and apical septal segments; fixed defect in basal inferior and mid inferior segments. Prior echo from 10/30/2022 reportedly showed LVEF 50-55%; normal-appearing aortic valve bioprosthesis with gradients within normal limits. ??Due to CKD, patient was prehydrated with normal saline. Benefits and risks of the procedure were discussed with the patient and his family in depth, and informed consent was taken prior to the procedure. ??Risks of the procedure include but are not limited to vascular complications like groin hematoma, retroperitoneal bleed, vessel perforation; periprocedural MO, cardiac arrhythmias, stroke, contrast induced nephropathy (elevated risk due to underlying CKD), and . ?? After discussing all the benefits, risks and alternatives, patient was willing to proceed with the procedure. PROCEDURES PERFORMED: Ultrasound-guided right common femoral arterial access Selective left and right coronary angiogram Selective bypass graft Angiography Percutaneous coronary intervention-IFR of ostial left anterior descending artery Moderate sedation-CPT code 76173 and ??beyond Deployment of Mynx vascular closure device MODERATE SEDATION: Midazolam 1 mg , Fentanyl 25 mcg, start time ?1059 stop time ?? 1145, total direct rqaz-wb-chhm monitoring of conscious sedation ?? 46 minutes (CPT 18000) TRAINED OBSERVER: Bernadette Putnam RN was trained observer for moderate sedation. ACCESS SITE: ??Right common femoral artery PROCEDURE: ??After obtaining informed consent, patient was brought to the skill labor and prepped and draped in the usual sterile manner. ??Time-out and immediate reassessment of the patient was performed. ??After local anesthesia with lidocaine, right common femoral artery access was taken with micropuncture needle under ultrasound guidance followed by insertion of a 5 [place] sheath. ??Selective left and right coronary angiography was performed using 5 [place] JL4 and 5F JR4 catheters respectively. ?? Orthogonal views were taken. ??JR4 diagnostic catheter was used for selective bypass graft Angiography of aortic coronary bypass grafts. ?? Bioprosthetic Aortic valve was not crossed. Estimated blood loss was minimal. ??All specimens removed. The angiographic and other findings, and details of intervention are given below. FINDINGS: [place] CORONARY ARTERIES: LEFT MAIN CORONARY: ??Large caliber, relatively short vessel, no significant focal stenosis LEFT ANTERIOR DESCENDING ARTERY: ??Medium to large caliber vessel. ??There is about 50-60% stenosis at the ostium with abnormal IFR as described below; previously placed stents in the proximal-mid segment are patent with minimal lumen loss. ??The vessel tapers distally and reaches the LV apex diagonal branches are medium caliber vessel without significant focal stenosis LEFT CIRCUMFLEX ARTERY: ??Large caliber vessel, gives rise to small to medium caliber OM1 branch and medium caliber OM2 branch without significant focal stenosis. RIGHT CORONARY ARTERY: ??Medium caliber vessel, chronic total occlusion in the mid segment LEFT VENTRICULOGRAM: ??Not performed HEMODYNAMIC ASSESSMENT: ??Opening pressure 149/75 mmHg, closing pressure 156/60 mmHg. ?? BYPASS GRAFT ANGIOGRAPHY: SVG TO OM: ??Large caliber graft, no significant focal stenosis. ??The [place] vessel after anastomosis is a medium caliber vessel without significant focal stenosis. SVG TO RPDA: ??Large caliber graft, [id number], 30-50% diffuse plaque is seen in the mid segment. ??The RPDA after anastomosis is a medium caliber vessel without significant stenosis. INTERVENTION REPORT: ??Intermediate degree stenosis was seen at the ostium of the LAD. ??Therefore, we proceeded with a functional assessment of the stenosis with IFR. ??Patient received 8000 units of unfractionated heparin for procedural anticoagulation. Failed Omni wire pressure guidewire was zeroed outside the body. ??Five [place] JL4 guide catheter was advanced into the aortic root. ??After this, the pressure wire was normalized in the aorta after flushing the catheter with a normal saline. ??The left main coronary artery ostium was reengaged, and wire was advanced into the mid LAD. ??IFR was measured at 0.87 in the mid LAD, and dropped to 0.84 in the proximal segment suggestive of hemodynamically significant at the ostial LAD. ??The wire was taken on an angiogram showed preserved flow in the LAD. Due to patient's stage IV CKD, in order to spare him from contrast burden, he will be brought back for planned PCI on ostial LAD. Mynx vascular closure device was deployed for local hemostasis with supplemental manual pressure. Patient tolerated procedure well without any immediate procedural complications. CONCLUSIONS: CAD- A) about 50-60% stenosis ostial LAD (iFR 0.84); patent previously placed proximal-mid LAD stents; B) chronic total occlusion mid RCA Patent 2/2 bypass grafts (patent SVG to OM; patent SVG to RPDA with 30-50% diffuse stenosis in the mid segment) PLAN/RECOMMENDATIONS: Due to patient's stage IV CKD and in order to spare him from contrast burden, he will be brought back for planned PCI on ostial LAD. ??Patient will undergo repeat echocardiogram to reassess LVEF, and bioprosthetic aortic valve prior to planned PCI. ??Continue guideline directed medical treatment for CHF, and antiplatelet and statin treatment for CAD. ??Patient to be prehydrated with normal saline before his planned PCI. ??Plan discussed with the patient and his family. Voice recognition software was used to complete this document, therefore, dyslexia teacher variances may occur. Nabil Harding MD, [facility] 03/27/24 Nabil Harding MD CV CARDIAC CATH PROCEDURES Edite d Result - Final * POCT glucose (03/27/2024 7:13 AM FOUNDRY SUPERVISOR) Glucose, POC 172 70 - 199 mg/dL Blood 03/27/2024 7:13 AM FOUNDRY SUPERVISOR 03/27/2024 7:13 AM FOUNDRY SUPERVISOR Nabil Harding MD LAB POCT ORDERABLES - DEVICE Fin al Result [facility] [address] Department [place] [address] * XR Chest 1 Vw Portable (03/19/2024 3:19 AM FOUNDRY SUPERVISOR) Anatomical Region Laterality Modality Body, Chest N/A Computed Radiogr aphy 03/19/2024 9:19 AM FOUNDRY SUPERVISOR Impressions 03/19/2024 9:19 AM FOUNDRY SUPERVISOR Comparison is made to a prior study dated 06/30/2022. Median sternotomy wires are present. ??No new focal consolidation, pulmonary edema, or pneumothorax. ??Possible trace left pleural effusion. ??No pneumothorax. ??Cardiomediastinal silhouette is stable. Electronically signed by: Blanca Noriega M.D. Narrative 03/19/2024 9:19 AM FOUNDRY SUPERVISOR EXAMINATION: XR CHEST 1 VIEW HISTORY: General weakness Procedure Note Blanca Noriega MD - 03/19/2024 EXAMINATION: XR CHEST 1 VIEW HISTORY: General weakness IMPRESSION: Comparison is made to a prior study dated 06/30/2022. Median sternotomy wires are present. No new focal consolidation, pulmonary edema, or pneumothorax. Possible trace left pleural effusion. No pneumothorax. Cardiomediastinal silhouette is stable. Electronically signed by: Blanca Noriega M.D. us Reese Aguillon MD IMG XR PROCEDURES Final Re sult * (ABNORMAL) eGFR (03/19/2024 2:21 AM FOUNDRY SUPERVISOR) eGFR 24(L) >=60 mL/min/1. 73 m2 Comment: Interpretive Data Reference Interval Normal ?>/= 90 mL/min/1.73m2 Mildly decreased* ? 60 - 89 mL/min/1.73m2 Mildly to moderately decreased ?45 - 59 mL/min/1.73m2 Moderately to severely decreased ??30 - 44 mL/min/1.73m2 Severely decreased ?15 - 29 mL/min/1.73m2 Kidney Failure ?< 15 ??mL/min/1.73m2 *Relative to young adult level Estimated glomerular filtration rate is determined by the 2020 CKD-EPI equation recommended by the National Kidney Foundation (A Unifying Approach to GFR Estimation: Recommendations of the NKF-ASK Task Force on Reassessing the Inclusion of Race in Diagnosing Kidney Disease, JASN 2020). The CKD-EPI equation should not be used for patients with unstable renal function and has not been validated in children and those over 70. Current interpretive data was last reviewed 2021. Blood 03/19/2024 2:21 AM FOUNDRY SUPERVISOR 03/19/2024 2:25 AM FOUNDRY SUPERVISOR Reese Aguillon MD LAB BLOOD ORDERABLES Final Result [facility] [address] Department [place] [address] * (ABNORMAL) Differential, auto (03/19/2024 2:21 AM FOUNDRY SUPERVISOR) Neutrophil abs 10.4(H) 1.5 - 6.5 K/cumm Imm gran abs 0.1 0.0 - 0.1 K/cumm [facility] Lymphocyte abs 1.1 0.8 - 3.3 K/cumm [facility] Monocyte abs 1.1(H) 0.2 - 0.8 K/cumm [facility] Eosinophil abs 0.1 0.0 - 0.5 K/cumm [facility] Basophil abs 0.1 0.0 - 0.1 K/cumm [facility] Neutrophil pct 81.5 % [facility] Comment: Interpretive Data Percent cell count reference ranges are not reported, since discordance with absolute values may lead to misinterpretation of CBC data. Current Interpretive Data was last revised on 2017. Imm gran pct 0.5 % [facility] Comment: Interpretive Data Percent cell count reference ranges are not reported, since discordance with absolute values may lead to misinterpretation of CBC data. Current Interpretive Data was last revised on 2017. Lymphocyte pct 8.7 % [facility] Comment: Interpretive Data Percent cell count reference ranges are not reported, since discordance with absolute values may lead to misinterpretation of CBC data. Current Interpretive Data was last revised on 2017. Monocyte pct 8.4 % [facility] Comment: Interpretive Data Percent cell count reference ranges are not reported, since discordance with absolute values may lead to misinterpretation of CBC data. Current Interpretive Data was last revised on 2017. Eosinophil pct 0.5 % [facility] Comment: Interpretive Data Percent cell count reference ranges are not reported, since discordance with absolute values may lead to misinterpretation of CBC data. Current Interpretive Data was last revised on 2017. Basophil pct 0.4 % [facility] Comment: Interpretive Data Percent cell count reference ranges are not reported, since discordance with absolute values may lead to misinterpretation of CBC data. Current Interpretive Data was last revised on 2017. Blood 03/19/2024 2:21 AM FOUNDRY SUPERVISOR 03/19/2024 2:25 AM FOUNDRY SUPERVISOR Reese Aguillon MD LAB BLOOD ORDERABLES Final Result [facility] [address] Department [place] [address] * (ABNORMAL) Pro B-type natriuretic peptide (03/19/2024 2:21 AM FOUNDRY SUPERVISOR) NT-proBNP 481(H) <=450 pg/mL Comment: Interpretive Comments: A. Dyspnea in Acute Care Setting All Ages: ?< 300 pg/ml, acute heart failure unlikely. < 50 yrs: ?300 - 450 pg/ml, further investigation warranted. ? > 450 pg/ml, acute heart failure likely. 50 - 74 yrs: ? 300 - 900 pg/ml, further investigation warranted. ? > 900 pg/ml, acute heart failure likely . > or = 75 yrs: ? 450 - 1800 pg/ml, further investigation warranted. ? > 1800 pg/ml, acute heart failure likely. B. Non-acute Setting < 75 yrs ? < 125 pg/ml, rules out heart failure. ? > or = 125 pg/ml, further investigation warranted. > or = 75 yrs ?< 450 pg/ml, rules out heart failure. ? > or = 450 pg/ml, further investigation warranted. - Knowledge of each individual patient's NT-proBNP range may be more useful than using similar cut-points for every patient. Please note that marked elevations in NT-proBNP levels may be observed in state other than Left Ventricular Congestive Failure, including: acute coronary syndromes, right heart strain/failure (including pulmonary embolism and cor pulmonale), critical illness, renal failure, as well as advanced age. - References: 1. Angelo JL et.al. Eur Heart J. 2006:27:330-337. 2. Wendy RW, Reece SERRA. J. AM Jenni Cardiol: Cardiovasc Imag. 2009;2: 216- 225. Interpretive Data Last Revised Date: 2017. Blood 03/19/2024 2:21 AM FOUNDRY SUPERVISOR 03/19/2024 3:33 AM FOUNDRY SUPERVISOR Reese Aguillon MD LAB BLOOD ORDERABLES Final Result Performing Organization Address City/State/[facility] Co de Phone Number [facility] [address] Department [place] [address] * Respiratory pathogen panel Nasopharyngeal (03/19/2024 2:21 AM FOUNDRY SUPERVISOR) Pathologist [facility] Influenza A RNA Not Detected Not Detected Influenza B RNA Not Detected Not Detected [facility] RSV RNA Not Detected Not Detected [facility] COVID-19 RNA Not Detected Not Detected [facility] Coronavirus 229E RNA Not Detected Not Detected [facility] Coronavirus HKU1 RNA Not Detected Not Detected [facility] Coronavirus NL63 RNA Not Detected Not Detected [facility] Coronavirus OC43 RNA Not Detected Not Detected [facility] Adenovirus DNA Not Detected Not Detected [facility] Metapneumovirus RNA Not Detected Not Detected [facility] Rhinovirus/Enterov irus RNA Not Detected Not Detected [facility] Parainfluenza 1 RNA Not Detected Not Detected [facility] Parainfluenza 2 RNA Not Detected Not Detected [facility] Parainfluenza 3 RNA Not Detected Not Detected [facility] Parainfluenza 4 RNA Not Detected Not Detected [facility] B. pertussis DNA Not Detected Not Detected [facility] B. parapertussis DNA Not Detected Not Detected [facility] C. pneumoniae DNA Not Detected Not Detected [facility] M. pneumoniae DNA Not Detected Not Detected [facility] Comment: Interpretive Data The SpectraRep FilmArray Respiratory Panel (RP2.1) assay is a multiplexed real-time PCR based nucleic acid test capable of simultaneous qualitative detection and identification of multiple respiratory viral and bacterial nucleic acids, including SARS Coronavirus 2 (the causative agent of COVID-19). The following bacteria, viruses and virus subtypes can be identified using the FilmArray RP2.1 assay: Bordetella pertussis, Bordetella parapertussis, Chlamydia pneumoniae, Mycoplasma pneumoniae, Adenovirus, SARS Coronavirus 2, seasonal coronaviruses (Coronavirus HKU1, Coronavirus NL63, Coronavirus 229E, and Coronavirus OC43), Influenza A, Influenza A subtype H1, Influenza A subtype H3, Influenza A subtype 2009 H1, Influenza B, Metapneumovirus, Parainfluenza 1, Parainfluenza 2, Parainfluenza 3, Parainfluenza 4, RSV, Rhinovirus/Enterovirus. Due to the genetic similarity between human Rhinovirus and Enterovirus, the FilmArray RP2.1 assay cannot reliably differentiate them. Coronavirus OC43 may cross-react with some isolates of Coronavirus HKU1. ??A dual positive result may be due to cross-reactivity or may indicate a co-infection. The detection and identification of specific viral and bacterial nucleic acids from individuals exhibiting signs and symptoms of a respiratory infection aids in the diagnosis of respiratory infection if used in conjunction with other clinical and epidemiological information. ??The results of this test should not be used as the sole basis for diagnosis, treatment, or other management decisions. ??Negative results in the setting of a respiratory illness may be due to infection with pathogens that are not detected by this test. ??Positive results do not rule out infection/co-infection with other organisms. ??The agent(s) detected by the FilmArray RP2.1 may not be the definite cause of disease. ??Additional testing (lab, imaging, etc.) may be necessary when evaluating a patient with possible respiratory tract infection. The FilmArray RP2.1 assay has FDA clearance for testing of OPERATIONS ENGINEER swabs. ??The performance characteristics of this assay have been determined by [facility]. Current interpretive data was last revised on 2020. Nasopharyngeal 03/19/2024 2: 21 AM FOUNDRY SUPERVISOR 03/19/2024 2:24 AM FOUNDRY SUPERVISOR Narrative [facility] - 03/19/2024 3:21 AM FOUNDRY SUPERVISOR Is the Patient experiencing symptoms consistent with COVID?->Yes Surveillance testing for transplant patient?->No Reese Aguillon MD LAB MICROBIOLOGY - GENERAL ORDERABLES Final Result Performing Organization Address City/[facility]/ZIP Co de Phone Number [facility] [address] Department [facility] [place] [address] CH * (ABNORMAL) CBC with auto differential (03/19/2024 2:21 AM FOUNDRY SUPERVISOR) WBC 12.7(H) 3.8 - 9.9 K/cumm Hgb 13.1 13.0 - 17.5 g/dL [facility] Hct 40.1 38.9 - 50.3 % [facility] Plt 186 150 - 400 K/cumm [facility] MPV 10.7 9.1 - 12.3 fL [facility] RBC 4.47 4.30 - 5.80 M/cumm [facility] MCV 89.7 81.3 - 96.4 fL [facility] MCH 29.3 27.1 - 33.3 pg [facility] MCHC 32.7 32.3 - 35.7 g/dL [facility] RDW CV 14.6 11.1 - 14.9 % [facility] RDW SD 47.8 35.7 - 48.1 fL [facility] NRBC abs 0.00 0.00 - 0.01 K/cumm [facility] Blood 03/19/2024 2:21 AM FOUNDRY SUPERVISOR 03/19/2024 2:25 AM FOUNDRY SUPERVISOR Reese Aguillon MD LAB BLOOD ORDERABLES Final Result Performing Organization Address City/[facility]/ZIP Co de Phone Number [facility] [address] [address] Department [facility] [place] [address] * (ABNORMAL) Comprehensive metabolic panel (03/19/2024 2:21 AM FOUNDRY SUPERVISOR) Sodium 141 135 - 145 mmol/L Potassium, pl 3.2(L) 3.3 - 4.9 mmol/L [facility] Chloride 99 97 - 110 mmol/L [facility] CO2 29 22 - 32 mmol/L [facility] Anion gap 13 2 - 15 mmol/L [facility] BUN 40(H) 6 - 25 mg/dL [facility] Creatinine 2.59(H) 0.80 - 1.30 mg/dL [facility] Glucose 107 70 - 199 mg/dL [facility] Comment: Interpretive Data Fasting glucose >/= 126 mg/dl is diagnostic for diabetes. ?? Fasting is defined as no caloric intake for at least 8 hours. Fasting glucose between 100 mg/dl to 125 mg/dl is diagnostic of prediabetes. In a patient with classic symptoms of hyperglycemia or hyperglycemic crisis, a random glucose >/= 200 mg/dl is diagnostic for diabetes. In the absence of unequivocal hyperglycemia, results should be confirmed by repeat testing. The classification and Diagnosis of Diabetes Diabetes Care 2021; 46: S19-S40. Current interpretive data was last revised 2022. Calcium 9.1 8.5 - 10.3 mg/dL [facility] Bilirubin, total 0.4 0.1 - 1.2 mg/dL [facility] Protein, pl 7.0 6.5 - 8.5 g/dL [facility] Albumin 4.2 3.5 - 5.0 g/dL [facility] Alk phos 88 40 - 130 Units/L [facility] ALT 22 7 - 55 Units/L [facility] AST 23 10 - 50 Units/L [facility] Blood 03/19/2024 2:21 AM FOUNDRY SUPERVISOR 03/19/2024 2:25 AM FOUNDRY SUPERVISOR us Reese Aguillon MD LAB BLOOD ORDERABLES Final Result [facility] [address] [address] Department [place] [address] * (ABNORMAL) POCT hemoglobin A1c (09/22/2023 10:15 AM CDT) Hemoglobin A1C, POC 9.0 % Capillary blood 09/22/2023 1 0:15 AM CDT Joseph Brush MD POINT OF CARE TEST ORDERABLES Fi nal Result * POCT lipid panel (06/16/2023 8:11 AM FOUNDRY SUPERVISOR) Cholesterol, POC 140 mg/dL Comment:GLU = 225 HDL, POC 34 mg/dL Triglycerides, POC 212 mg/dL LDL Cholesterol POC 64 mg/dL Chol/HDL Ratio, POC 1.9 Non-HDL Cholesterol, POC 106 mg/dL Cholesterol Total, POC 140 mg/dL Capillary blood 06/16/2023 8 :11 AM FOUNDRY SUPERVISOR Aguila Chris MD POINT OF CARE TEST ORDER MIKE Final Result * Hepatitis C Antibody Reflex Hepatitis C RNA Quantitative PCR Blood (06/14/2019 3:47 PM FOUNDRY SUPERVISOR) Hep C Ab Negative Negative [facility] Blood specimen (specimen) 06/14/2019 3:47 PM FOUNDRY SUPERVISOR 06/14/2019 8:03 PM FOUNDRY SUPERVISOR Notinfile Unknown LAB MICROBIOLOGY - GENERAL ORD ERABLES Final Result [facility] [address] Department [place] [address] * COLONOSCOPY REPORT (05/18/2014) Anatomical Region Laterality Modality Other Narrative 05/18/2014 Ordered by an unspecified provider. Historical Provider GI PROCEDURE ORDERABLES F inal Result from Last 3 Months or Most Recently Relevant to Health Maintenance Insurance [employer] CHO[employer] MEDICARE PPO [employer]ICE MEDICARE PPO [employer]ICE MEDICARE PPO [employer]ICE MEDICARE PPO Advance Directives For more information, please contact: [phone] * Full Code (Latest Code Status on File) Date Activated Date Inactivated Comments 06/30/2022 6:44 PM 07/03/2022 5:32 PM * Full Code Date Activated Date Inactivated Comments 06/30/2022 6:39 PM 06/30/2022 6:44 PM * Full Code Date Activated Date Inactivated Comments 01/29/2022 2:14 PM 01/30/2022 6:06 PM * Full Code Date Activated Date Inactivated Comments 09/03/2021 12:10 PM 09/04/2021 7:37 PM Care Teams Crayon Molding Machine Operator Relationship Specialty Start Date End Date Miguel Torres DO [address] [place] [address] [address] [place] [address] PCP - General Internal Medicine 01/17/24 Yfn Gill MD Referring Physician Nephrology 01/22/22 Aguial Chris MD Consulting Physician Cardiology 01/22/22 [place] [address] [facility] [address] [place] [address] Consulting Physician Endocrinology Diabetes & Metabolism 01/22/22 Neeraj La MD [address] [address] Surgeon Vascular Surgery 01/30/22
--- OUTSIDE RECORDS SUMMARY | 2024-05-31 13:22 | XMS_ITS | Clinical Summary ---
Author Organization [facility] Address [address] [place] [address] Care Team Providers Care Dry House Worker Name Role Phone SabrinaArnel barbour Primary Care Provider [phone] Source Comments [facility],non-[facility] Affiliates and Associated Physician Practices is amultiple site organization consisting of ambulatory clinics and hospital sitesin [place] and [place]. This disclosure is being madepursuant to the Care Everywhere program and may not contain all information available regarding this patient. Last updated 18.[facility] Allergies Active Allergy Reactions Criticality Noted Date [...] times daily 90 capsule 5 05/27/2021 Active Family History Medical History Relation Name Comments Cancer Brother Cancer Father Cancer Mother Cancer Sister Relation Name Status Comments Brother Father Mother Sister Social History Tobacco Use Types Packs/Day Years Used Date Smoking Tobacco: Former Smokeless Tobacco: Never Sex and Gender Information Value Date Recorded Sex Assigned at Not on file Gender Identity Not on file Sexual Orientation Not on file Last Filed Vital Signs Vital Sign Reading Time Taken Comments Blood Pressure 136/70 05/05/2021 1:09 PM MANAGER COLLEGE Pulse 76 05/05/2021 1:09 PM MANAGER COLLEGE Temperature - - Respiratory Rate 14 05/05/2021 1:09 PM MANAGER COLLEGE Oxygen Saturation 98% 05/05/2021 1:09 PM MANAGER COLLEGE Inhaled Oxygen Concentration - - Weight 121.1 kg (267 lb) 05/05/2021 1:09 PM MANAGER COLLEGE Height 172.7 cm (5' 8 ) 05/05/2021 1:09 PM MANAGER COLLEGE Body Mass Index 40.6 05/05/2021 1:09 PM MANAGER COLLEGE Plan of Treatment Health Maintenance Due Date Last Done Comments DTAP/TDAP/TD VACCINES (1 - Tdap) 11/26/1963 PNEUMOCOCCAL VACCINE 50+ (1 of 1 - PCV) 1994 ZOSTER VACCINE (1 of 2) 1994 Respiratory Syncytial Virus (RSV) Vaccine Pt: or over 60 yrs (1 - 1-dose 75+ series) 11/26/2019 COVID-19 VACCINE ( - 2023-2 5 season) 2024 INFLUENZA VACCINE (#1) 2024 1, 03/03/2020, 01/31/2019 DEPRESSION SCREENING 05/03/2024 HEPATITIS B VACCINE Aged Out No longe r eligible based on patient's age to complete this topic HIB VACCINE Aged Out No longer eligi ble based on patient's age to complete this topic HPV VACCINE Aged Out No longer eligi ble based on patient's age to complete this topic MENINGOCOCCAL (Group B) VACCINE Aged Out No longer eligible b ased on patient's age to complete this topic MENINGOCOCCAL VACCINE Aged Out No jorge kelsi eligible based on patient's age to complete this topic Care Teams Dry House Worker Relationship Specialty Start Date End Date Arnel Gonzalez DO [address] [facility] [address] [place], [place] [id number] PCP - General 01/03/21
--- OUTSIDE RECORDS SUMMARY | 2024-05-31 13:23 | XMS_ITS | Data Portability ---
Author Organization [place] - [facility] [employer], Main Office Address [address] [place] [address] Care Team Providers Care Escort Car Driver Name Role Phone BENITAJOCELYNE MACDONALD Primary Care Provider JOCELYNE DAUGHERTY Referring Provider [phone] Assessment Encounter Date Assessment Date Assessment LastModified by Organization Details LastModified Time 01/27/2024 01/27/2024 This note is dictated and transcribed by [employer]. Staffing Assistant variances may occur. Despite proofreading, typographical errors may occur. Occasional wrong-word or 'anexg-k-krpq' substitutions may have occurred due to the inherent limitations of voice recording. Read the chart carefully and recognize, using context, where substitutions have occurred. Not available 01/27/2024 14:32:20 05/11/2024 05/11/2024 This note is dictated and transcribed by [employer]. Staffing Assistant variances may occur. Despite proofreading, typographical errors may occur. Occasional wrong-word or 'avhsl-h-dios' substitutions may have occurred due to the inherent limitations of voice recording. Read the chart carefully and recognize, using context, where substitutions have occurred. Not available 05/11/2024 16:20:38 Plan of Treatment Reminders Order Date Submit Date Provider Last Modified By Organization Details Last Modified Time Details Appointments Establish ed Patient 15 2024 02:00P Barbra Cardoso DPM Not available Not available Not available Lab None recorded. Referral None recorded. Procedures None recorded. Surgeries None recorded. Imaging None recorded. Medication Orders ammonium lactate 12 % lotion [address] [facility]acy #[id number], [address], [place], [address], 03/30/2023 15:16:36 Patient TargetsNo targets recorded. Patient Instructions Encounter Date Encounter Id Patient Instructions Last Modified By Organization Details Last Modified Time 05/11/2024 [id number] diabetic foot care education Not available 05/11/2024 16:21:28 Reason for Referral None Reported. Problems Name Problem SNOMED Code Status Onset Date Resolution Date Notes Provider Name and Address Organization Details Recorded Time Arthritis 1585618 Active 2022 Yovana crooks [facility] 3 14:52:19 Diabetes mellitus 13635823 Active 2022 Yovana Arvizu null, [facility] 3 14:52:25 Ear problem 503251357 Active 2022 Yovana Arvizu null, [facility] 3 14:52:32 Disorder of eye 570381330 Active 2022 Yovana Arvizu null, [facility] 3 14:52:40 Heart disease 11097718 Active 2022 Yovana Arvizu null, [facility] 3 14:52:46 Hyperchole sterolemia 56930946 Active 2022 Yovana Arvizu null, [facility] 3 14:52:56 Kidney disease 95404717 Active 2022 Yovana Arvizu null, [facility] 3 14:53:05 Obesity 887736180 Active 2022 Yovana crooks, [facility] 3 14:53:12 Sleep disorder 26853734 Active 2022 Yovana Arvizu null, [facility] 3 14:53:29 Dystrophia unguium 98699488 Active 2022 Merrick Cardoso, TANYA [address] [facility], [place] [address], [place], [address] , [facility] 3 15:14:00 Acquired hallux limitus of right great toe 8463833419078 100 Active 2022 Merrick Cardoso DPM [address], [address], [place], [address] , [facility] 3 15:14:44 Foot callus 053152315 Active 2022 Merrick Cardoso DPM [address], [address], [place], [address] , [facility] 3 15:15:32 Fissure in skin 90123973 Active 2022 Merrick Cardoso DPM [address], [address], [place], [address] , [facility] 3 15:15:39 Edema of lower extremity 961758368 Active 2024 Merrick Cardoso DPM [address], [address], [place], [address] , [facility] 5 16:21:15 Notes:back/neck problem, pro state, urinary/bladder/kidney problems, use of blood thinners Problem Notes None recorded. Procedures Surgical History Date Name Laterality Status Provider Name and Address Organization Details Recorded Time 01/27/20 24 Nail Debridement completed Merrick Cardoso DPM [address], [address], [place], [address], [facility] 01/27/2024 14:31:56 01/12/20 23 Nail Debridement completed Merrick Cardoso DPM [address], [address], [place], [address], [facility] 01/11/2023 15:13:45 Knee Surgery completed Not Available [facility] 07[facility] 13:12:58 procedure on heart completed Not Available [facility] 07/01[facility]22 13:12:58 procedure on urinary bladder completed Not Available [facility] 13:12:58 Imaging Results None recorded. Procedure Notes None recorded. Medical Equipment None Reported. Allergies Allergen ID Allergen Name Allergen Category Reaction Reaction Severity Criticality Documentation Date Start Date Code Code System Note Provider Name and Address Organization Details Recorded Time 78899 codeine medicatio n itching Not available Not available 07/01/2022 2670 RxNorm Not Available [facility] 13:15:32 Medications Name Sig Start Date Stop Date Status Note LastModified by Organization Details LastModified Time cyclobenzap rine 10 mg tablet 01/11 completed Not Available Not Available Not Available amoxicillin 500 mg capsule 01/11 completed Not Available Not Available Not Available furosemide 40 mg tablet 01/11 completed Not Available Not Available Not Available bumetanide 2 mg tablet active Not Available Not Available Not Available nabumetone 750 mg tablet 01/11 completed Not Available Not Available Not Available ammonium lactate 12 % lotion APPLY TO FOOT CALLUSES DAILY NEEDED active Not Available Not Available No t Available azithromyci n 250 mg tablet TAKE 2 TABLETS BY MOUTH TODAY, THEN TAKE 1 TABLET DAILY FOR 4 DAYS DIRECTED 07/05 completed Not Available Not Available Not Available hydrocodone 5 mg-acetamin ophen 325 mg tablet 01/11 completed Not Available Not Available Not Available meloxicam 15 mg tablet 07/05 completed Not Available Not Available Not Available lisinopril 20 mg tablet active Not Available Not Available Not Available pimecrolimu s 1 % topical cream APPLY TO RASH ON FACE AND EARS TWICE DAILY NEEDED FOR FLARES active Not Available Not Available No t Available Accu-Chek Softclix Lancets active Not Available Not Available Not Available clopidogrel 75 mg tablet active Not Available Not Available Not Available amlodipine 5 mg tablet 01/11 completed Not Available Not Available Not Available spironolact one 25 mg tablet 01/11 completed Not Available Not Available Not Available oxycodone-a cetaminophe n 5 mg-325 mg tablet 07/05 completed Not Available Not Available Not Available amitriptyli ne 25 mg tablet TAKE 1 TABLET BY MOUTH EVERY DAY AT NIGHT active Not Available Not Available No t Available betamethaso ne valerate 0.1 % topical cream APPLY TOPICALLY TO THE AFFECTED AREA TWICE DAILY 07/05 completed Not Available Not Available Not Available amlodipine 10 mg tablet active Not Available Not Available Not Available cephalexin 500 mg capsule 01/11 completed Not Available Not Available Not Available oseltamivir 75 mg capsule 01/11 completed Not Available Not Available Not Available metformin 1,000 mg tablet 01/11 completed Not Available Not Available Not Available glimepiride 4 mg tablet 12/27 completed Not Available Not Available Not Available hyoscyamine 0.125 mg sublingual tablet 01/11 completed Not Available Not Available Not Available lidocaine 5 % topical patch 1 PATCH TOPICALLY DAILY LEAVE ON MOST PAINFUL AREA FOR UP TO 12 HRS active Not Available Not Available No t Available nitroglycer in 0.[address] 1 TABLET UNDER THE TONGUE EVERY 5 MINUTES NEEDED FOR CHEST PAIN. active Not Available Not Available No t Available gabapentin 300 mg capsule TAKE 2 CAPSULES BY MOUTH THREE TIMES A DAY active Not Available Not Available No t Available omeprazole 20 mg capsule,del ayed release active Not Available Not Available Not Available allopurinol 300 mg tablet active Not Available Not Available Not Available hydralazine 50 mg tablet active Not Available Not Available Not Available hydrochloro thiazide 25 mg tablet active Not Available Not Available No t Available mupirocin 2 % topical ointment APPLY A SMALL AMOUNT TO THE INSIDE OF EACH NOSTRIL TWICE DAILY FOR 5 DAYS PRIOR TO PROCEDURE 01/11 completed Not Available Not Available Not Available gabapentin 100 mg capsule 01/11 completed Not Available Not Available Not Available metoprolol succinate ER 25 mg tablet,exte nded release 24 hr active Not Available Not Available Not Available ergocalcife rol (vitamin D2) 1,250 mcg (50,000 unit) capsule TAKE 1 CAPSULE BY MOUTH ONCE WEEKLY active Not Available Not Available No t Available hydroxyzine HCl 10 mg tablet TAKE 1 TABLET BY MOUTH THREE TIMES A DAY NEEDED FOR ANXIETY active Not Available Not Available No t Available clobetasol 0.05 % scalp solution APPLY TOPICALLY TO THE SCALP TWICE DAILY NEEDED FOR FLAKING OR ITCHING active Not Available Not Available No t Available fluticasone propionate 50 mcg/actuati on nasal spray,suspe nsion active Not Available Not Available Not Available terazosin 10 mg capsule active Not Available Not Available Not Available doxycycline hyclate 100 mg tablet TAKE 1 TABLET BY MOUTH TWICE A DAY active Not Available Not Available No t Available calcitriol 0.25 mcg capsule 0.25 MCG ORALLY 3 TIMES A WEEK ADMINISTE R AFTER DIALYSIS ON DIALYSIS DAYS active Not Available Not Available No t Available finasteride 5 mg tablet active Not Available Not Available Not Available diflorasone 0.05 % topical ointment 01/11 completed Not Available Not Available Not Available amoxicillin 875 mg-potassiu m clavulanate 125 mg tablet active Not Available Not Available Not Available oxycodone 5 mg tablet 01/11 completed Not Available Not Available Not Available Novolog Mix 70-30 FlexPen U-100 Insulin 100 unit/mL subcutaneou s pen 01/11 completed Not Available Not Available Not Available rosuvastati n 10 mg tablet active Not Available Not Available Not Available Klor-Con M20 mEq tablet,exte nded release active Not Available Not Available Not Available metoprolol tartrate 25 mg tablet 07/05 completed Not Available Not Available Not Available duloxetine 60 mg capsule,del ayed release 01/11 completed Not Available Not Available Not Available aspirin 2019 active Not Available Not Available Not Avai lable Suprep Bowel Prep Kit 17.5 gram-3.13 gram-1.6 gram oral solution 12/27 completed Not Available Not Available Not Available Farxiga 10 mg tablet active Not Available Not Available No t Available Farxiga 5 mg tablet 07/05 completed Not Available Not Available Not Available Trulicity 1.5 mg/0.5 mL subcutaneou s pen injector 01/11 completed Not Available Not Available Not Available Trulicity 0.75 mg/0.5 mL subcutaneou s pen injector 01/11 completed Not Available Not Available Not Available Entresto 49 mg-51 mg tablet TAKE 1 TABLET BY MOUTH TWICE A DAY active Not Available Not Available No t Available Droplet Pen Needle 31 gauge x 3/16 active Not Available Not Available Not Available Droplet Pen Needle 31 gauge x 5/16 12/27 completed Not Available Not Available Not Available Humulin R U-500 (Conc) Insulin Kwikpen 500 unit/mL (3 mL) subcutaneou s INJECT INSULIN 3 TIMES DAILY. MAX 300 UNITS/DAY active Not Available Not Available No t Available Accu-Chek Guide test strips active Not Available Not Available Not Available Accu-Chek Guide Glucose Meter active Not Available Not Available Not Available Paxlovid 150 mg-100 mg tablets in a dose pack (Renal Dose) 07/05 completed Not Available Not Available Not Available Ozempic 0.25 mg or 0.5 mg (2 mg/3 mL) subcutaneou s pen injector active Not Available Not Available Not Available Vitals Date Recorded Body height Body mass index (BMI) Body weight Provider Name and Address Organization Details Last Updated DateTime 01/11/2023 172.72 cm 39.5 kg/m2 886329.02 g Yovana Nolberto [facility] [employer] [facility] 01/11/2023 14:52:01 Date Recorded Heart rate Respiratory rate Body temperature Oxygen saturation Oxygen saturation in Arterial blood by Pulse oximetry Systolic blood pressure Diastolic blood pressure Provider Name and Address Organization Details Last Updated DateTime 3 76 /min 16 /min 97.4 [degF] 98 % 98 % 130 mm[Hg] 82 mm[Hg] Deanna Navarrete [facility] 3 14:54:08 Date Recorded Body height Body mass index (BMI) Body weight Heart rate Respiratory rate Oxygen saturation Oxygen saturation in Arterial blood by Pulse oximetry Systolic blood pressure Diastolic blood pressure Provider Name and Address Organization Details Last Updated DateTime 3 172.72 cm 39.5 kg/m2 796936. 02 g 99 /min 14 /min 97 % 97 % 143 mm[Hg] 73 mm[Hg] Marta Najera [facility] [employer] [facility] 3 14:38:18 Date Recorded Body height Body mass index (BMI) Body weight Heart rate Respiratory rate Oxygen saturation Oxygen saturation in Arterial blood by Pulse oximetry Systolic blood pressure Diastolic blood pressure Provider Name and Address Organization Details Last Updated DateTime 4 172.72 cm 39.5 kg/m2 659408. 02 g 96 /min 14 /min 98 % 98 % 163 mm[Hg] 77 mm[Hg] Marta Najera [facility] 4 16:40:20 Date Recorded Body height Body mass index (BMI) Body weight Heart rate Respiratory rate Oxygen saturation Oxygen saturation in Arterial blood by Pulse oximetry Systolic blood pressure Diastolic blood pressure Provider Name and Address Organization Details Last Updated DateTime 4 172.72 cm 39.5 kg/m2 003698. 02 g 85 /min 14 /min 98 % 98 % 137 mm[Hg] 75 mm[Hg] Marta Najera [place] [facility] 4 14:11:03 Date Recorded Body height Body mass index (BMI) Body weight Heart rate Respiratory rate Oxygen saturation Oxygen saturation in Arterial blood by Pulse oximetry Systolic blood pressure Diastolic blood pressure Provider Name and Address Organization Details Last Updated DateTime 5 172.72 cm 39.5 kg/m2 459164. 02 g 102 /min 16 /min 97 % 97 % 126 mm[Hg] 66 mm[Hg] Marta Najera [facility] 5 15:19:04 Social History Question Answer Notes LastModified by Organizat ion Details LastModified Time Tobacco Smoking Status Former Smoker Yovana Nolberto crooks, [facility] 01/11/2023 14:55:43 What Is Your Level Of Alcohol Consumption? None [email or web address] Information not available 01/11/2023 Sex: Unknown Functional Status None recorded. Mental Status None recorded. Family History Relationship Description Onset Age of this Age Resolved Age Notes LastModified by Organization Details LastModified Time Unspecified Relation Hypertensive disorder [id number] Not available 07/01/2022 13:12:59 Unspecified Relation Diabetes mellitus [id number] Not available 07/01/2022 13:12:59 Unspecified Relation Kidney disease [id number] Not available 07/01/2022 13:12:59 Unspecified Relation Arthritis [email or web address] Not available 023 14:55:21 Medical History Condition Response BLINDNESS N KIDNEY STONES Y MRSA N CARPAL TUNNEL SYNDROME N LUNG DISEASE/DISORDER N HISTORY OF DRUG ABUSE N RADIATION / CHEMOTHERAPY N COPD N SPORTS INJURY N ANKLE PAIN N BLOOD DISEASES N SCHIZOPHRENIA N SHINGLES N BOWEL PROBLEMS N SHOULDER PAIN N DEPRESSION (INCLUDING POST ) N STROKE/TIA N KNEE PAIN N ULCERS N BENIGN PROSTATIC HYPERPLASIA N OBESITY Y GERD/NAUSEA N ANEURYSM N URINARY/BLADDER/KIDNEY PROBLEMS Y CORONARY ARTERY DISEASE (CAD) N ADDICTION CONCERNS N USE OF BLOOD THINNERS Y SKIN PROBLEMS N EMPHYSEMA N MUSCLE,JOINT OR BONE PROBLEMS N DVT N STOMACH ULCERS N BLOOD CLOTS N USE OF NSAIDS N CONCUSSION OR SPINAL TRAUMA N NEUROPATHY N AIDS/HIV N FRACTURES N ELBOW PAIN N HYPERTENSION Y TOURETTE'S N ANXIETY DISORDER N Metal allergy N BLOOD TRANSFUSION N ANEMIA/BLOOD DISORDER N BIPOLAR DISORDER N BRONCHITIS N OSTEOARTHRITIS N TUBERCULOSIS N FOOT PROBLEM N HEART VALVE DISORDERS N ALLERGIES/HAYFEVER N SOFT TISSUE INJURY N INFECTIOUS DISEASE N HEART ARRHYTHMIA N INSOMNIA N RHEUMATOID ARTHRITIS N HIGH CHOLESTEROL / HYPERLIPIDEMIA Y EDEMA N CHRONIC PAIN SYNDROME N CAROTID BLOCKAGE N BACK / NECK PROBLEMS Y HAVE YOU BEEN HOSPITALIZED OR SEEN IN [facility] IN THE PAST YEAR ? N BURSITIS N HERNIATED DISC N DIALYSIS N FIBROMYALGIA N OSTEOPOROSIS N ARTHRITIS Y NO SIGNIFICANT PAST MEDICAL HISTORY N PERIPHERAL NEUROPATHY N DIABETES, TYPE Y HEARTBURN / REFLUX N HEPATITIS / LIVER DISEASE N GOUT N SLEEP DISORDER Y ALZHEIMER'S DISEASE N HERPES N SEIZURES/EPILEPSY N HEADACHES/MIGRAINES N VASCULAR DISEASE N HIP PAIN N Blood Disorder N DIZZINESS N HEAD TRAUMA OR INJURY N HEART DISEASE/HEART PROBLEMS Y MULTIPLE SCLEROSIS N CARDIAC ARRHYTHMIA N CANCER: SPECIFY Y ANESTHESIA COMPLICATIONS N ATRIAL FIBRILLATION N AUTOIMMUNE DISEASE N Past Encounters Encounter ID Performer Location Encounter Start Date Encounter Closed Date Diagnosis/Indication Diagnosis SNOMED-CT Code Diagnosis ICD10 Code Diagnosis Note [id number] [facility] [place] [address] [place] [address] 02/13/2021 00:00:00 02/13/2021 11:18:11 [id number] Merrick Cardoso DPM [facility] [place] [address] [place] [address] 01/11/2023 14:37:23 01/20/2023 11:58:11 Diabetes mellitus 88580845 E11.40 Patient educated on neuropathy , diabetes, diabetic diet, and daily foot exams. Patient is to check feet daily for new wounds, blisters, redness to prevent infection and ulceration s to the feet. Patient will return to clinic in 3 months for diabetic foot workup. Dystrophia unguium 01094 009 L60.3 left great toenailDeb rided without incident follow-up as needed Acquired h allux limitus of right great toe 0607418800 709820 M20.5X1 educated on conditionC ontinue supportive shoe gearRange of motion exercises dailyRice therapyFol low-up as needed [id number] Merrick Cardoso DPM [facility] [place] [address] [facility] [place] [address] 03/30/2023 14:22:28 04/02/2023 09:27:28 Foot callus 781735779 L84 right footuse rory pena dailyfollo w up as needed Fissure in skin 72976091 R23.4 keep area cleancont DM insolesmay require more support to prevent sheering in shoes [id number] Merrick Cardoso DPM [facility] [place] [address] [place] [address] 07/06/2023 16:36:52 07/07/2023 13:50:23 Foot callus 138218311 L84 resolvedus e rory pena dailyno further paincont supportive shoefollow up as needed [id number] Merrick Cardoso DPM [facility] [place] [address] [place] [address] 01/27/2024 13:57:23 01/27/2024 14:38:22 Diabetes mellitus 40739631 E11.40 continue diabetic control per PCP recommenda tion Acquired h allux limitus of right great toe 5963996794 623031 M20.5X1 educated on conditionC ontinue supportive shoe gearRange of motion exercises dailyRice therapywil l monitor Dystrophia unguium 98227 009 L60.3 left great toenailtoe nails debrided without incident [id number] Merrick Cardoso DPM [facility] [place] [address] [place] [address] 05/11/2024 15:12:23 05/16/2024 15:30:57 Diabetes mellitus 67049223 E11.40 continue diabetic control per PCP recommenda tionrecomm end supportive shoe gearCheck foot daily for wounds infectionF ollow-up in 3 months for diabetic foot care Edema of l ower extremity 077644098 R60.0 recommend chronic compressio n stockings bilateral lower extremityW hen at rest elevate legsLow-so dium diet Health Concerns Section Related Observation LastModified by Organization Detai ls LastModified Time None Recorded Concern Status LastModified by Organization Details LastModified Time None Recorded Advance Directives Directive None Recorded Payers Encounter Date Sequence Insurance Name Policy Number Policy Fraga Covered Member ID Fraga Member ID Guarantor Name 01/11/2023 1 [employer] (MEDICARE REPLACEMENT/A DVANTAGE - PPO) Sabino Wells Cicio [id number] Gabriel Wells Cicio 03/30/2023 1 [employer] (MEDICARE REPLACEMENT/A DVANTAGE - PPO) Sabino Wells Cicio [id number] Gabriel Wells Cicio 07/06/2023 1 [employer] (MEDICARE REPLACEMENT/A DVANTAGE - PPO) Sabino Celeste [id number] Gabriel Wells Cicio 01/27/2024 1 [employer] (MEDICARE REPLACEMENT/A DVANTAGE - PPO) Sabino Wells Cicio [id number] Gabriel Wells Cicio 05/11/2024 1 [employer] (MEDICARE REPLACEMENT/A DVANTAGE - PPO) Sabino Celeste [id number] Gabriel Celeste Notes Date Note Type Note Provider Name and Address Organization Details Recorded Time 3 text/html . Patient is a 77-year-old male diabetic who presents the office with complaints of callusing to the plantar foot. Patient states he developed some calluses which he was concerned about wounds secondary to diabetes and neuropathy. Patient denies any open wounds or infection. Patient denies any intermittent claudication walking rest pain. Patient states his helps him take care of his feet as he is unable to bend over secondary to back problems. Patient denies any fever, chills, nausea vomiting. Patient denies any other pedal complaints. Merrick Cardoso DPM [address], [address], [place], [address], [facility] 01/19/2023 16:40:59 3 text/html Patient is a 77 yr old male who presents for callus to the plantar foot. Patient denies any wounds. Patient denies any other pedal complaints. Merrick Cardoso DPM [address], [address], [place], [address], [employer] 04/02/2023 09:14:24 4 text/html Patient follows up for callus, he states with proper shoe gear and use of pumas stone he no longer has pain or the callus. Denies any new complaints. Merrick Cardoso DPM [address], [address], [place], [address], [facility] 07/07/2023 10:04:27 text/html . Patient is a 78-year-old male who returns the office for diabetic foot care. Patient denies any open wounds or infection. Patient denies any pain at the arthritic 1st metatarsophalangeal joint states he continues to walk with a cane is not very active. Patient denies any other complaints would like his nails cut. Merrick Cardoso DPM [address], [address], [place], [address], [facility] 01/27/2024 14:33:25 text/html . Patient is a 78-year-old male diabetic who returns the office for routine diabetic foot care. Patient states overall he is doing well denies any wounds or infection of the feet. Patient does have swelling of his lower extremities that is qatb-hw-jylgcwoi in nature he denies any calf pain or open wounds to the lower legs I did recommend compression stockings he is currently being evaluated for congestive heart failure. Patient denies any other complaints. Merrick Cardoso DPM [address], [address], [place], [address], [facility] 05/11/2024 16:21:52
--- OUTSIDE RECORDS SUMMARY | 2024-05-31 13:23 | XMS_ITS | Clinical Summary ---
Author Organization [facility] Address [address] [place] [address]. [place], [place] [address] [place] [id number] Care Team Providers Care Rat Breeder Name Role Phone Arnel Gonzalez MD Primary Care Provider [phone] Allergies Active Allergy Reactions Criticality Noted Date Comments Codeine Itching Medium 08/08/2013 Tramadol Nausea and Vomiting,Unknown Low 10/19/19 18 Medications HYDROCHLOROTHIA ZIDE OR 25 mg daily. 07/06/2022 Active lisinopril (PRINIVIL) 20 MG tablet Take 1 tablet (20 mg total) by mouth 2 (two) times daily. 01/12/2023 Active ASPIRIN 81 OR 81 mg daily. 07/06/2022 Ac tive allopurinol (ZYLOPRIM) 300 MG tablet Take 1 tablet (300 mg total) by mouth daily. 04/15/2023 Active amLODIPine (NORVASC) 10 MG tablet Take 0.5 tablets (5 mg total) by mouth daily. 10/27/2022 Active omeprazole (PRILOSEC) 20 MG capsule Take 1 capsule (20 mg total) by mouth daily. Active hydrALAZINE (APRESOLINE) 50 MG tablet Take 1 tablet (50 mg total) by mouth 2 (two) times daily. 03/17/2023 Active rosuvastatin (CRESTOR) 10 MG tablet Take 1 tablet (10 mg total) by mouth daily. Active terazosin (HYTRIN) 10 MG capsule Take 2 capsules (20 mg total) by mouth daily. Active nitroglycerin (NITROSTAT) 0.[address] 1 tablet (0.4 mg total) under the tongue every 5 (five) minutes as needed. Active Multiple Vitamin (MULTI-VITAMIN) tablet Take 1 tablet by mouth daily. 07/06/2022 Active HUMULIN R U-500 KWIKPEN 500 UNIT/ML injection 05/10/2023 Active FARXIGA 5 MG Tab 5 mg daily. 10/02/2022 Active clopidogrel (PLAVIX) 75 MG tablet Take 1 tablet (75 mg total) by mouth daily. 02/03/2023 Active calcitriol (ROCALTROL) 0.25 MCG capsule Take 1 capsule (0.25 mcg total) by mouth. Three times a week 06/16/2023 Active Alpha-Lipoic Acid 600 MG Tab Take 1 tablet by mouth daily. Active amitriptyline (ELAVIL) 25 MG tablet Take 1 tablet (25 mg total) by mouth nightly at bedtime. 11/10/2022 Active gabapentin (NEURONTIN) 300 MG capsuleIndicati ons:Neuropathy 2 capsules three times a day 180 capsule 11 06/22/2023 Active gabapentin (NEURONTIN) 300 MG capsuleIndicati ons:Neuropathy Take 2 capsules three times a day 180 capsule 11 07/19/2023 Active gabapentin (NEURONTIN) 300 MG capsuleIndicati ons:Neuropathy Take 3 capsules three times a day 270 capsule 11 09/01/2023 Active semaglutide (OZEMPIC) 2 MG/3ML injection (PEN) Inject 0.25 mg into the skin. 09/22/2023 Active gabapentin (NEURONTIN) 300 MG capsuleIndicati ons:Neuropathy Take 3 pills three times a day 810 capsule 9 10/12/2023 Active Encounters Date Type Department Care Team Description 02/29/2024 Telephone [facility] - [address] [place] [address] Devon Houser MD Medication from Last 3 Months Immunizations Name Administration Dates Next Due Fluzone High Dose - >Age 65 (Prefilled Syringe) 03/11/2023,02/24/2022,02/27/2021 Influenza (Generic) 02/26/2021, 0,02/01/2020,2018 MODERNA COVID-19 BIVALENT (1 2+), MRNA, LNP-S, PF 02/24/2022 MODERNA COVID-19 (12+) MRNA, LNP-S, PF, 100 MCG/ 0.5 ML DOSE 07/23/2020,06/12/2020 Pneumococcal (Prevnar 13) 01/31/2017 Shingrix 05/07/2021,02/18/2021 Social History Tobacco Use Types Packs/Day Years Used Date Smoking Tobacco: Former Cigarettes Smokeless Tobacco: Never Tobacco Cessation:Counseling Given: Not Answered Alcohol Use Standard Drinks/Week Comments Not Currently 0 (1 standard drink = 0.6 oz pur e alcohol) PHQ-2 Answer Date Recorded Patient Health Questionnaire-2 Score 3 10/12/2023 Sex and Gender Information Value Date Recorded Sex Assigned at Not on file Legal Sex Male 12:11 PM 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 Gender Identity Not on file Sexual Orientation Not on file Last Filed Vital Signs Vital Sign Reading Time Taken Comments Blood Pressure 138/67 10/12/2023 3:33 PM CDT Pulse 85 10/12/2023 3:33 PM CDT Temperature 37.1 ??C (98.7 ??F) 10/12/2023 3:33 PM CD T Respiratory Rate 18 06/22/2023 12:59 PM 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 Oxygen Saturation 96% 10/12/2023 3:33 PM CDT Inhaled Oxygen Concentration - - Weight 124.3 kg (274 lb) 10/12/2023 3:33 PM CDT Height 172.7 cm (5' 8 ) 10/12/2023 3:33 PM CDT Body Mass Index 41.66 10/12/2023 3:33 PM CDT Plan of Treatment Health Maintenance Due Date Last Done Comments Kidney Health Evaluation 1944 Diabetes: Retinopathy Eye Exam 1962 Hepatitis C 1962 DTaP, Tdap and Td Vaccines (1 - Tdap) 11/26/1963 Annual Medicare Wellness Visit 2009 Pneumococcal Vaccine: 65+ Years (2 of 2 - PPSV23 or PCV20) 03/28/2017 01/31/2017 RSV Immunization or 60+ Years (1 - 1-dose 75+ series) 11/26/2019 Hemoglobin A1C 12/16/2022 06/18/2022 COVID-19 Vaccine ( - season) 2024 02/24/2022, 03/11/2021, 07/23/2020, Additional history exists Influenza Adult (#1) 2024 03/11/2023, 02/24/2022, 02/27/2021, Additional history exists PHQ-2 (Physician Ione) 05/03/2024 10/12/2023 Lipid Panel 06/16/2024 06/16/2023 Zoster Vaccines Completed 05/07/2021, 02/18/2021 Meningococcal B Vaccine Aged Out No l onger eligible based on patient's age to complete this topic Meningococcal Vaccine Aged Out No jorge kelsi eligible based on patient's age to complete this topic RSV Immunizations Under 20 Months Aged Out No longer eligible based on patient's age to complete this topic Insurance HUMAN Care Teams Rat Breeder Relationship Specialty Start Date End Date Arnel Gonzalez MD [address] [place] [address] PCP - General INTERNAL MEDICINE 06/22/23
--- OUTSIDE RECORDS SUMMARY | 2024-05-31 13:23 | XMS_ITS | Encounter Summary ---
Author Organization [facility] Address [address] [place] [address] Care Team Providers Care Joint Terminal Attack Controller Name Role Phone Yfn Gill MD Unavailable [phone] Aguila Chris MD Unavailable [phone] Malcolm Castro MD Unavailable [phone] Neeraj La MD Unavailable [phone] Miguel Torres DO Primary Care Provider [phone] Reason for Visit * Reason Onset Date Comments Medication Problem 05/10/2024 Encounter Details Date Type Department Care Team (Late st Contact Info) Description 05/10/2024 Telephone [facility] Cardiology [address] [place] [address] Nabil Jacobs MD [address] [address] Medication Problem Social History Tobacco Use Types Packs/Day Years [...] on file Legal Sex Male 1:58 AM 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 Please advise. Thank you. Contact [phone] RAM EVALUATION CONSULTANT documented in this encounter Plan of Treatment Not on file documented as of this encounter Goals Goal Patient Goal Type Associated Problems Recent Progress Patient-Stated? Author CCM Chronic Pain Care Plan Chronic Care Management No change(04/14 11:08 AM PROGRAM EVALUATION CONSULTANT) Pool Welch RN Note: Problem: Chronic Pain Goals: 1. Minimize further functional decline 2. Maximize quality of life 3. Control pain Strategies: - Activity/exercise program recommendation - Conservative stepwise pain medicine strategy with multi-disciplinary approach - Recommend healthy lifestyle strategies and compensatory methods as needed documented as of this encounter Visit Diagnoses Not on filedocumented in this encounter Care Teams Joint Terminal Attack Controller Relationship Specialty Start Date End Date Melissa MiguelDO [address] [facility] [address] [place] [address] PCP - General Internal Medicine 01/17/24 Yfn Gill MD Referring Physician Nephrology 01/22/22 Aguila Chris MD Consulting Physician Cardiology 01/22/22 [place] [address] [facility] [address] [place] [address] Consulting Physician Endocrinology Diabetes & Metabolism 01/22/22 Neeraj La MD [address] [facility] [id number] [place] [address] Surgeon Vascular Surgery 01/30/22 documented as of this encounter
--- OUTSIDE RECORDS SUMMARY | 2024-05-31 13:23 | XMS_ITS | Clinical Summary ---
Author Organization [facility] Address [address] [place] [address] Care Team Providers Care Marketing Mgr Name Role Phone Yfn Gill MD Unavailable [phone] Aguila Chris MD Unavailable [phone] Malcolm Castro MD Unavailable [phone] Neeraj La MD Unavailable [phone] Miguel Torres DO Primary Care Provider [phone] Allergies Active Allergy Reactions Criticality Noted Date [...] 1 tablet (300 mg total) by mouth office assistance before breakfast 04/14/20 20 Active alpha lipoic acid 600 mg tabletIndicatio ns:pain Take 1 tablet by mouth nightly Active Accu-Chek Mariel Plus test strp strip 07/16/19 22 Active Accu-Chek Softclix Lancets lancets 07/16/19 22 Active Droplet Pen Needle 31 gauge x / needle 07/16/19 22 Active multivitamin tabletIndicatio ns:Vitamin [...] (06/09/2022): Added automatically from request for surgery [id number] Carotid stenosis, right 01/07/2022 Overview (01/07/2022): Added automatically from request for surgery [id number] Assessment & Plan (04/19/2023 1:00 PM ELECTRONIC TRANSACTION IMPLEMENTER): Status post TCAR. Stent patent. Continue anti-platelet therapy follow-up 6 months. Assessment & Plan (03/12/2022 5:16 PM ELECTRONIC TRANSACTION IMPLEMENTER): Impression: Patient is status post right TCAR. [...] (02/05/2020): Added automatically from request for surgery [id number] Hx of colonic polyps 10/10/2019 Overview (10/10/2019): Added automatically from request for surgery [id number] History of colon polyps 07/10/2019 Overview (07/10/2019): Added automatically from request for surgery [id number] Hypertension associated with diabetes 06/29/2019 Assessment & Plan (04/19/2023 1:00 PM ELECTRONIC TRANSACTION IMPLEMENTER): Hypertension chronic controlled. Continue current medical management [...] actual BMI) Coronary artery disease invo lving fond [place] coronary artery of [place] heart without angina pectoris 05/06/2015 Overview (08/07/2016): Coronary artery disease involving [place] coronary artery of [place] heart without angina pectoris Assessment & Plan (01/07/2022 3:00 PM CDT): Stable. Continue medical therapy. Mixed diabetic hyperlipidemi a associated with type 2 diabetes mellitus ([facility]) 05/06/2015 Overview (08/07/2016): Type 2 diabetes mellitus with complication Assessment & Plan (04/19/2023 1:00 PM ELECTRONIC TRANSACTION IMPLEMENTER): Hyperlipidemia chronic and controlled. Continue current medical [...] week so we can look at his [employer] data and advise on changes to his [...] 10/26/2017 Overview (08/07/2016): S/P CABG x 2 Encounters Date Type Department Care Team Description 05/12/2024 Documentation [facility] Cardiology [address] [place] [address] Shila Bowers MA 05/10/2024 8:30 AM ELECTRONIC TRANSACTION IMPLEMENTER Office Visit [facility] Cardiology [address] [place] [address] Nabil Harding MD Coronary artery disease involving [place] coronary artery of [place] heart without angina pectoris (Primary Dx); S/P CABG x 2; Cardiomyopathy, ischemic; S/P angioplasty with stent; Chronic systolic congestive heart failure (CMS/HCC) ([facility]); S/P aortic valve replacement with bioprosthetic valve; Hypertension associated with diabetes ([facility]); Stage 3b chronic kidney disease ([facility]); Morbid obesity with BMI of 40.0-44.9, adult ([facility]); MARY on CPAP 05/10/2024 Telephone [facility] Cardiology [address] [place] [address] [place] [address] Nabil Harding MD Medication Problem 04/17/2024 9:30 AM ELECTRONIC TRANSACTION IMPLEMENTER - 04/17/2024 11:30 AM ELECTRONIC TRANSACTION IMPLEMENTER Surgery [facility] Cardiac Catheterization Lab [address] [place] [address] Nabil Harding MD PCI SHAYY MAJOR CORONARY [id number] - [id number] 04/17/2024 6:10 AM ELECTRONIC TRANSACTION IMPLEMENTER - 04/17/2024 3:36 PM ELECTRONIC TRANSACTION IMPLEMENTER Hospital Encounter [facility] Cardiac Catheterization Lab [address] [place] [address] Nabil Harding MD Coronary artery disease involving [place] coronary artery of [place] heart without angina pectoris Discharge Disposition: Discharge to home or self care 04/17/2024 Telephone [facility] Cardiology [address] [place] [address] [place] [phone] Nabil Harding MD 04/13/2024 Telephone [facility] Cardiology [address] [place] [address] [place] [address] Nabil Harding MD 04/10/2024 Telephone [facility] Cardiology [address] [place] [address] [place] [address] Nabil Harding MD 04/05/2024 3:00 PM ELECTRONIC TRANSACTION IMPLEMENTER Ancillary Procedure [facility] Cardiology [address] [place] [address] [place] [phone] Chronic heart failure with preserved ejection fraction (CMS/HCC) ([facility]); S/P aortic valve replacement with bioprosthetic valve 03/27/2024 10:30 AM ELECTRONIC TRANSACTION IMPLEMENTER - 03/27/2024 12:00 PM ELECTRONIC TRANSACTION IMPLEMENTER Surgery [facility] Cardiac Catheterization Lab [address] [place] [address] Nabil Harding MD RIGHT LEFT HEART CATHETERIZATION WITH CORONARY ANGIOGRAPHY GRAFT AND WITH OR WITHOUT LEFT VENTRICULOGRAPHY 19904 03/27/2024 6:31 AM ELECTRONIC TRANSACTION IMPLEMENTER - 03/27/2024 3:17 PM ELECTRONIC TRANSACTION IMPLEMENTER Hospital Encounter [facility] Cardiac Catheterization Lab [id number] [place] [address] Nabil Harding MD Coronary artery disease involving fond [place] coronary artery of [place] heart without angina pectoris; Cardiovascular stress test abnormal Discharge Disposition: Discharge to home or self care 03/27/2024 Telephone [facility] Cardiology [address] [place] [phone] Nabil Harding MD lab order 03/19/2024 2:54 AM ELECTRONIC TRANSACTION IMPLEMENTER - 03/19/2024 6:44 AM [facility] Emergency [facility] Emergency Department [address] [place] [phone] Reese Aguillon MD Generalized weakness (Primary Dx); Viral URI Discharge Disposition: Discharge to home or self care 03/01/2024 Telephone [facility] Diabetes and Endocrinology [address] [place] [address] Jsoeph Brush MD [facility] Medical form from Last 3 Months Immunizations Name Administration Dates Next Due Influenza, Quad, Adjuvantate d, Intramuscular 03/11/2023,02/24/2022,02/27/2021 Influenza, Quadrivalent, Hig h Dose, Preservative Free, Intrr 03/11/2023,02/24/2022,02/27/2021 Influenza, Quadrivalent, Spl it, Intramuscular 02/27/2021 Influenza, Trivalent, Adjuva nted, Intramuscular 02/01/2020 Influenza, Trivalent, IM (MDV) 02/26/2021,2019,01/31/2019 Influenza, Unspecified 02/26/2021,2019,02/01/2020,01/31 Moderna SARS-CoV-2 Monovalen t Vaccination (12+ YRS) 03/11/2021 Pneumococcal Conjugate PCV 13 01/31/2017 ZOSTER Recombinant 05/07/2021,02/18/2021 Surgical History Surgery Date Site/Laterality Comments BLADDER SURGERY 01/15/2021 nodule removed, prostate shaved LASIK JOINT REPLACEMENT Left TKA CARPAL TUNNEL RELEASE Bilateral EYE SURGERY Left several for a detached retina CORONARY ARTERY BYPASS GRAFT 2V + AVR COLONOSCOPY polyps benign CATARACT EXTRACTION Bilateral CORONARY ANGIOPLASTY WITH ST ENT PLACEMENT 09/23/2021 x2 CARDIAC VALVE REPLACEMENT CAROTID STENT 01/29/2022 Right RT TCAR CERVICAL FUSION Medical History Medical History Date Comments Hypertension Hypertension Adiposity Obesity Sleep apnea BiPap Type 2 diabetes mellitus (HCC) I DDM HL (hearing loss) no aids CAD (coronary artery disease) Osteoarthritis GERD (gastroesophageal reflu x disease) PPI and occ Tums Anemia no iron, injecti ons or h/o blood transfusion Blindness left eye blindness CHF (congestive heart failur e) ([facility]) ([facility]) Pneumonia 10/21/2021 hospitalized at [place] with PNA, JUANITA and CHF Cancer (CMS/HCC) ([facility]) h/o bladd er cancer, surgical intervention only CKD (chronic kidney disease) , stage III ([facility]) Numbness and tingling fingers an d hands, needs back surgery after he can get off of Plavix Aortic stenosis Teeth missing has 2 teeth miss ing, 1 needs new crown put on RLS (restless legs syndrome) Shortness of breath on exertion with <100ft Adverse effect of anesthesia aft er bladder surgery pt came out agitated and aggressive Arthritis Low back pain LOCK (dyspnea on exertion) Family History Medical History Relation Name Comments Cancer Brother Addi Cancer Father Maged Aguilar Early Father Maged Aguilar Cancer COD Cancer Mother Cyndie Burrisio Chronic Pain Mother Cyndie Burrisio Diabetes Mother Cyndie Cicio Heart attack Mother Cyndie Cicio Heart disease Mother Cyndie Cicio Hypertension Mother Cyndie Cicio Chronic Pain Other Cancer Sister 1 Veda Diabetes Sister 1 Veda Lung cancer Sister 2 Cancer, lung; C ause of : Cancer, lung Relation Name Status Comments Brother Addi Father Maged Aguilar (Age 59) Mother Cyndie Aguilar Other Sister 1 Veda (Age 70) Sister 2 Social History Tobacco Use Types Packs/Day Years [...] on file Legal Sex Male 1:58 AM ELECTRONIC TRANSACTION IMPLEMENTER Gender Identity Not on file Sexual Orientation Not on file Obstetrics History Last Filed Vital Signs Vital Sign Reading Time Taken Comments Blood Pressure 120/58 05/10/2024 8:51 AM ELECTRONIC TRANSACTION IMPLEMENTER Pulse 86 05/10/2024 8:51 AM ELECTRONIC TRANSACTION IMPLEMENTER Temperature 36.7 ??C (98 ??F) 04/17/2024 7:04 AM ELECTRONIC TRANSACTION IMPLEMENTER Respiratory Rate 16 04/17/2024 7:04 AM ELECTRONIC TRANSACTION IMPLEMENTER Oxygen Saturation 94% 05/10/2024 8:51 AM ELECTRONIC TRANSACTION IMPLEMENTER Inhaled Oxygen Concentration - - Weight 125 kg (275 lb 9.6 oz) 05/10/2024 8:51 AM ELECTRONIC TRANSACTION IMPLEMENTER Height 172.7 cm (5' 8 ) 05/10/2024 8:51 AM ELECTRONIC TRANSACTION IMPLEMENTER Body Mass Index 41.9 05/10/2024 8:51 AM ELECTRONIC TRANSACTION IMPLEMENTER Plan of Treatment Health Maintenance Due Date Last Done Comments Albumin Creatinine Ratio, Urine 1945 Depression Screening 1945 Dilated Eye Exam 1945 Foot Exam 1945 DTaP/Tdap/Td Vaccine (1 - Tdap) 11/26/1955 Hepatitis B Screening 1962 Abdominal Aortic Aneurysm (A AA) Screen 2009 Well Visit 65+ 2009 Pneumococcal vaccine 65+ (2 of 2 - PPSV23 or PCV20) 03/28/2017 01/31/2017 Covid-19 Vaccine (5 - 4-2 5 season) 2024 02/24/2022, 03/11/2021, 07/23/2020, Additional history exists Influenza Vaccine (#1) 2024 , 03/11/2023, 02/24/2022, Additional history exists Hemoglobin A1C 03/24/2024 09/22/2023, 06/03, 04/19/2017, Additional history exists Lipid Panel 06/16/2024 06/16/2023, 06/04, 11/28/2021, Additional history exists eGFR 03/19/2025 03/19/2024, 08/31, 08/04/2023, Additional history exists Fall Risk Assessment 04/17/2025 04/17/2024 Colon Cancer Screening-CT Colonography Discontinued 05/18/2014 Colon Cancer Screening-Colonoscopy Discontinued 05/18/2014 Colon Cancer Screening-DNA Stool Discontinued 05/18/19 15 Colon Cancer Screening-FIT Discontinued 05/18/2014 Colon Cancer Screening-FOBT Discontinued 05/18/2014 Colon Cancer Screening-Sigmoidoscopy Discontinued 05/18/2014 Colorectal Cancer Screening Discontinued Hepatitis C Screening Completed 06/14/2019 Zoster Vaccine Completed 05/07/2021, 02/18/2021 Goals Goal Patient Goal Type Associated Problems Recent Progress Patient-Stated? Author CCM Chronic Pain Care Plan Chronic Care Management No change(04/14 11:08 AM ELECTRONIC TRANSACTION IMPLEMENTER) Pool Welch, RN Note: Problem: Chronic Pain Goals: 1. Minimize further functional decline 2. Maximize quality of life 3. Control pain Strategies: - Activity/exercise program recommendation - Conservative stepwise pain medicine strategy with multi-disciplinary approach - Recommend healthy lifestyle strategies and compensatory methods as needed Medical Devices Implanted Type Area Mechanical Intern Device Identifier Shelf Expiration Date Model / Serial / Lot Total Knee Left: Knee Medtronic Inc Resolute [place] 3mm 2.1-2.7fr 12mm 140cm Rapid Exchange Radiopaque [id number] - [id number] Implanted:Qty: 1 on 09/03/2021 by Bindu Goins MD at [facility] Medtronic Inc 06/11/2024 [id number] / / Medtronic Inc Resolute [place] 3.5mm 2.1-2.7fr 15mm 140cm Rapid Exchange [id number] - [id number] Implanted:Qty: 1 on 09/03/2021 by Bindu Goins MD at [facility] [employer]onic Inc 04/04/2024 [id number] / / Angio-Seal Vip 6fr Closere Device [id number] - [id number] Implanted:Qty: 1 on 09/03/2021 by Bindu Goins MD at [facility] [employer] Accelerator Miya 06/02/2022 [id number] / / Back[employer] Enroute Uber Flex 8mm .065in 40mm 57cm Delivery System Angle Tip [id number] - [id number] Implanted:Qty: 1 on 01/29/2022 by Neeraj La MD at [facility] Right: Carotid [employer] 08/30/2024 [id number] / / [id number] Matilde [employer] Inc 4.5mm 16mm Fix Screw Bone [id number] - [id number] Implanted:Qty: 3 on 06/30/2022 by Fredy Nguyen MD at [facility] N/A: Spine Cervical MATILDE [employer]OMET [employer] INC [id number] 6 / / Musculoskeletal Transplant 12.9w14w6tk Frozen Spine 7d Lordotic Trapezoid Spacer Allograft 156701 - [id number] - [id number] Implanted:Qty: 1 on 06/30/2022 by Fredy Nguyen MD at [facility] N/A: Spine Cervical Musculoskeletal Transplant [id number] 03/25/2025 [id number] / [id number] / Musculoskeletal Transplant 12.7o77i5ul Frozen Spine 7d Lordotic Trapezoid Spacer Allograft 238035 - [id number] - [id number] Implanted:Qty: 1 on 06/30/2022 by Fredy Nguyen MD at [facility] N/A: Spine Cervical Musculoskeletal Transplant [id number] 01/03/2025 [id number] / [id number] / Musculoskeletal Transplant 12.8c92u7oi Frozen Spine 7d Lordotic Trapezoid Spacer Allograft 462730 - [id number] - [id number] Implanted:Qty: 1 on 06/30/2022 by Fredy Nguyen MD at [facility] N/A: Spine Cervical Musculoskeletal Transplant [id number] 04/26/2026 [id number] / [id number] / [employer] Inc C-Ervin Maxan 51mm Level 3 Fix Spine Cervical Anterior Plate Bone [id number] - [id number] Implanted:Qty: 1 on 06/30/2022 by Fredy Nguyen MD at [facility] N/A: Spine Cervical [employer] [id number] / / Matilde [employer] Inc 4mm 16mm Fix Screw Bone [id number] - [id number] Implanted:Qty: 5 on 06/30/2022 by Fredy Nguyen MD at [facility] N/A: Spine Cervical [employer]IL[employer] [id number] / / Access Closure Inc Device 10ml 5fr Closure Mynx Control 2 Mode Balloon Catheter [id number] - [id number] Implanted:Qty: 1 on 03/27/2024 by Nabil Harding MD at [facility] Access [employer]osure Inc 01/18/2026 [id number] / / [id number] Medtronic Card Vasc Surgery 4.0 X 18mm Sherine [place] Rx Coronary Stent [id number] - [id number] Implanted:Qty: 1 on 04/17/2024 by Nabil Harding MD at [facility] Medtronic Card Vasc Surgery 12/26/2026 [id number] / / [id number] Access Closure Inc Mynx Control 6-7fr 2 Mode Balloon Catheter Sealant Lock Syringe [id number] - [id number] Implanted:Qty: 1 on 04/17/2024 by Nabil Harding MD at [facility] Access [employer]osure Inc 01/05/2026 [id number] / / [id number] Procedures Procedure Name Priority Date/Time Associated Diagnosis Comments POCT GLUCOSE DEVICE Routine 04/17/2024 1 0:45 AM ELECTRONIC TRANSACTION IMPLEMENTER PCI SHAYY STENT ADDTN'L COR BRANCH (+) [id number] Routine 04/17/2024 10:23 AM ELECTRONIC TRANSACTION IMPLEMENTER Coronary artery disease involving [place] coronary artery of [place] heart without angina pectoris PERCUTANEOUS CORONARY LITHROTRIPSY W/ PCI (+) 73440 Routine 04/17/2024 10:23 AM ELECTRONIC TRANSACTION IMPLEMENTER Coronary artery disease involving [place] coronary artery of [place] heart without angina pectoris CORONARY OCT, 1ST VESSEL Routine 04/17/2024 10:23 AM ELECTRONIC TRANSACTION IMPLEMENTER Coronary artery disease involving [place] coronary artery of [place] heart without angina pectoris VASCULAR ACCESS US GUIDANCE Routine 04/17/2024 10:23 AM ELECTRONIC TRANSACTION IMPLEMENTER Coronary artery disease involving [place] coronary artery of [place] heart without angina pectoris SHAYY MAJOR CORONARY Routine 04/17/2024 10 :23 AM ELECTRONIC TRANSACTION IMPLEMENTER Coronary artery disease involving [place] coronary artery of [place] heart without angina pectoris MODERATE SEDATION FIRST 15MIN 5+ YEAR 82498 04/17/2024 9:00 AM ELECTRONIC TRANSACTION IMPLEMENTER Coronary artery disease involving [place] coronary artery of [place] heart without angina pectoris POCT GLUCOSE DEVICE Routine 04/17/2024 8 :27 AM ELECTRONIC TRANSACTION IMPLEMENTER TRANSTHORACIC ECHO (TTE) COMPLETE W DOPPLER/CF WO CONTRAST Routine 04/05/2024 4:20 PM ELECTRONIC TRANSACTION IMPLEMENTER Chronic heart failure with preserved ejection fraction (CMS/HCC) (HCC) S/P aortic valve replacement with bioprosthetic valve POCT GLUCOSE DEVICE Routine 03/27/2024 1 2:08 PM ELECTRONIC TRANSACTION IMPLEMENTER CORONARY FLOW VELOCITY (CFR) / INSTATANEOUS FLOW VELOCITY (IFR), 1ST VESSEL Routine 03/27/2024 11:45 AM ELECTRONIC TRANSACTION IMPLEMENTER Coronary artery disease involving [place] coronary artery of [place] heart without angina pectoris Cardiovascular stress test abnormal RIGHT LEFT HEART CATHETERIZATION CORONARY GRAFT WITH WITHOUT LEFT VENTRICULOGRAPHY ANGIOGRAM Routine 03/27/2024 11:45 AM ELECTRONIC TRANSACTION IMPLEMENTER Coronary artery disease involving [place] coronary artery of [place] heart without angina pectoris Cardiovascular stress test abnormal VASCULAR ACCESS US GUIDANCE Routine 03/27/2024 11:45 AM ELECTRONIC TRANSACTION IMPLEMENTER Coronary artery disease involving [place] coronary artery of [place] heart without angina pectoris Cardiovascular stress test abnormal MODERATE SEDATION FIRST 15MIN 5+ YEAR 05689 03/27/2024 10:46 AM ELECTRONIC TRANSACTION IMPLEMENTER Coronary artery disease involving [place] coronary artery of [place] heart without angina pectoris Cardiovascular stress test abnormal POCT GLUCOSE DEVICE Routine 03/27/2024 7 :13 AM ELECTRONIC TRANSACTION IMPLEMENTER XR CHEST 1 VIEW ED 03/19/2024 3:19 AM ELECTRONIC TRANSACTION IMPLEMENTER PRO B-TYPE NATRIURETIC PEPTIDE Add-On 03/19/2024 2:21 AM ELECTRONIC TRANSACTION IMPLEMENTER EGFR STAT 03/19/2024 2:21 AM ELECTRONIC TRANSACTION IMPLEMENTER DIFFERENTIAL AUTO STAT 03/19/2024 2:2 1 AM ELECTRONIC TRANSACTION IMPLEMENTER COMPREHENSIVE METABOLIC PANEL STAT 03/19/2024 2:21 AM ELECTRONIC TRANSACTION IMPLEMENTER CBC WITH AUTO DIFFERENTIAL STAT 03/19/2024 2:21 AM ELECTRONIC TRANSACTION IMPLEMENTER RESPIRATORY PATHOGEN PANEL Routine 03/19/2024 2:21 AM ELECTRONIC TRANSACTION IMPLEMENTER POCT HEMOGLOBIN A1C Routine 09/22/2023 1 0:15 AM CDT Type 2 diabetes mellitus with stage 3 chronic kidney disease, with long-term current use of insulin, unspecified whether stage 3a or 3b CKD (HCC) POCT LIPID PANEL Routine 06/16/2023 8:11 AM ELECTRONIC TRANSACTION IMPLEMENTER Mixed diabetic hyperlipidemia associated with type 2 diabetes mellitus (CMS/HCC) (HCC) HEPATITIS C AB REFLEX RNA QUANT PCR Routine 06/14/2019 3:47 PM ELECTRONIC TRANSACTION IMPLEMENTER COLONOSCOPY REPORT 05/18/2014 from Last 3 Months or Most Recently Relevant to Health Maintenance Results * POCT glucose (04/17/2024 10:45 AM ELECTRONIC TRANSACTION IMPLEMENTER) Glucose, POC 133 70 - 199 mg/dL Blood 04/17/2024 10:4 5 AM ELECTRONIC TRANSACTION IMPLEMENTER 04/17/2024 10:45 AM ELECTRONIC TRANSACTION IMPLEMENTER Nabil Harding MD LAB POCT ORDERABLES - DEVICE Fin al Result Performing Organization Address City/State/ZIP Co me Phone Number JOSE MIGUEL [address] [facility] Department [place] [address] * SHAYY MAJOR CORONARY, VASCULAR ACCESS US GUIDANCE, CORONARY OCT, 1ST VESSEL, PERCUTANEOUS CORONARY LITHROTRIPSY W/ PCI (+) [id number], PCI SHAYY STENT ADDTN'L COR BRANCH (+) [id number] (04/17/2024 10:23 AM ELECTRONIC TRANSACTION IMPLEMENTER) Anatomical Region Laterality Modality X-Ray Angiograph y Addenda Addendum by Nabil Harding MD on 04/17/2024 10:55 AM ELECTRONIC TRANSACTION IMPLEMENTER CARDIAC CATHETERIZATION AND INTERVENTION REPORT DATE OF [...] from 02/15/2024 reportedly showed LVEF 33%; small, [id number]-[id number] reversible defect in apical anterior and apical [...] groin hematoma, retroperitoneal bleed, vessel perforation; periprocedural NM, cardiac arrhythmias, stroke, contrast induced nephropathy, and [...] a 4.0 x 18 mm Medtronic sherine [place] zotarolimus eluting stent with good angiographic and IVUS results (proximal optimization into left main) Moderate sedation-CPT code 90129 and ??beyond Deployment of Mynx vascular closure device MODERATE SEDATION: Midazolam 1 mg , Fentanyl 25 mcg, start time ?0927 stop time ?? 1023, total direct cvrd-zy-hlbs monitoring of conscious sedation ?? 56 minutes (CPT 38215) TRAINED OBSERVER: Abisai oWods RN was trained observer for moderate sedation. ACCESS SITE: ??Right common femoral artery PROCEDURE: ??After obtaining informed consent, patient was brought to the catheterization laboratory technician and prepped and draped in the usual sterile manner. ??Time-out and immediate reassessment of the patient was performed. ??After local anesthesia with lidocaine, right common femoral artery access was taken with micropuncture needle under ultrasound guidance followed by insertion of a 6 Beninese sheath. ??Selective left coronary angiogram was performed using 6 Beninese JL4 guide catheter. Estimated blood loss was [...] artery ostium was selectively engaged using 6 Beninese JL4 guide catheter. ??Bivalirudin was used for procedural anticoagulation. ??Patient has been on dual antiplatelet therapy, today's dose of clopidogrel was given in the catheterization laboratory technician. 0.014 luge wire was advanced and the stenosis at the ostium of the LAD was crossed. ??The guidewire was advanced in the distal LAD. ??IVUS was performed using a Mila anvik eye IVUS catheter. ??The reference diameter was [...] ??Next 4.0 x 18 mm Medtronic sherine [place] ZES was advanced to the target lesion [...] a 4.0 x 18 mm Medtronic sherine [place] ZES will good IVUS and angiographic results. PLAN/RECOMMENDATIONS: ??Continue dual antiplatelet therapy, statin; and guideline directed medical treatment for CHFrEF. ??Outpatient Cardiology follow-up. ?? Voice recognition software was used to complete this document, therefore, teacher vocal variances may occur. Nabil Harding MD, [facility] 04/17/24 us Nabil Harding MD CV CARDIAC CATH PROCEDURES Edite d Result - Final * POCT glucose (04/17/2024 8:27 AM ELECTRONIC TRANSACTION IMPLEMENTER) [facility] Glucose, POC 166 70 - 199 mg/dL Blood 04/17/2024 8:27 AM ELECTRONIC TRANSACTION IMPLEMENTER 04/17/2024 8:27 AM ELECTRONIC TRANSACTION IMPLEMENTER us Nabil Harding MD LAB POCT ORDERABLES - DEVICE Fin al Result JOSE MIGUEL [id number] [address] [facility] Department [place] [address] * TRANSTHORACIC ECHO (TTE) COMPLETE W DOPPLER/CF WO CONTRAST (04/05/2024 4:20 PM ELECTRONIC TRANSACTION IMPLEMENTER) Anatomical Region Laterality Modality Ultrasound 04/05/2024 3:53 PM ELECTRONIC TRANSACTION IMPLEMENTER Narrative 04/06/2024 7:04 AM ELECTRONIC TRANSACTION IMPLEMENTER [facility] Cardiology [address] [facility] [address], [place] [address] [address] [facility] [address], [place] [address] P:[phone] P:[phone] Echocardiographic Report Patient Name: TAMIKA AGUILAR D : 1945 Study Date: 04/05/2024 3:53:42 PM Gender: M Tech: Location: [facility] Provider: NABIL HARDING Height(Cm): 160 BSA: [...] FINDINGS: Interpretation Site: Exam was interpreted at [facility]. Left Ventricle: Severe enlargement of left ventricle [...] Electronically Signed By: Jose Antonio Walls MD, [facility] 04/06/2024 7:04:01 AM ELECTRONIC TRANSACTION IMPLEMENTER Procedure Note Jose Antonio Walls MD - 04/06/2024 [facility] Cardiology [address], [place] [address] [address], [place] [address] P:[phone] P:[phone] Echocardiographic Report Patient Name: TAMIKA AGUILAR D : 1945 Study Date: 04/05/2024 3:53:42 PM Gender: M Tech: MOISÉS Location: [facility] Provider: NABIL HARDING Height(Cm): 160 BSA: [...] FINDINGS: Interpretation Site: Exam was interpreted at [facility]. Left Ventricle: Severe enlargement of left ventricle [...] Electronically Signed By: Jose Antonio Walls MD, [facility] 04/06/2024 7:04:01 AM ELECTRONIC TRANSACTION IMPLEMENTER Nabil Harding MD CV ECHO PROCEDURES Final Result * POCT glucose (03/27/2024 12:08 PM ELECTRONIC TRANSACTION IMPLEMENTER) Glucose, POC 157 70 - 199 mg/dL Blood 03/27/2024 12:0 8 PM ELECTRONIC TRANSACTION IMPLEMENTER 03/27/2024 12:08 PM ELECTRONIC TRANSACTION IMPLEMENTER Nabil Harding MD LAB POCT ORDERABLES - DEVICE Fin al Result [facility]SE [facility]IGUEL BOWERS [address] [place] [address] * VASCULAR ACCESS US GUIDANCE, RIGHT LEFT HEART CATHETERIZATION CORONARY GRAFT WITH WITHOUT LEFT VENTRICULOGRAPHY ANGIOGRAM, CORONARY FLOW VELOCITY (CFR) / INSTATANEOUS FLOW VELOCITY (IFR), 1ST VESSEL (03/27/2024 11:45 AM ELECTRONIC TRANSACTION IMPLEMENTER) Anatomical Region Laterality Modality X-Ray Angiograph y Addenda Addendum by Nabil Harding MD on 03/27/2024 12:11 PM ELECTRONIC TRANSACTION IMPLEMENTER CARDIAC CATHETERIZATION AND INTERVENTION REPORT DATE OF [...] from 02/15/2024 reportedly showed LVEF 33%; small, qoyy-am-[id number] reversible defect in apical anterior and apical [...] groin hematoma, retroperitoneal bleed, vessel perforation; periprocedural NM, cardiac arrhythmias, stroke, contrast induced nephropathy (elevated risk due to underlying CKD), and . ?? After discussing all the benefits, risks and alternatives, patient was willing to proceed with the procedure. PROCEDURES PERFORMED: Ultrasound-guided right common femoral arterial access Selective left and right coronary angiogram Selective bypass graft Angiography Percutaneous coronary intervention-IFR of ostial left anterior descending artery Moderate sedation-CPT code 48363 and ??beyond Deployment of Mynx vascular closure device MODERATE SEDATION: Midazolam 1 mg , Fentanyl 25 mcg, start time ?1059 stop time ?? 1145, total direct czpi-te-wynm monitoring of conscious sedation ?? 46 minutes (CPT 10488) TRAINED OBSERVER: Bernadette Putnam RN was trained observer for moderate sedation. ACCESS SITE: ??Right common femoral artery PROCEDURE: ??After obtaining informed consent, patient was brought to the catheterization laboratory technician and prepped and draped in the usual sterile manner. ??Time-out and immediate reassessment of the patient was performed. ??After local anesthesia with lidocaine, right common femoral artery access was taken with micropuncture needle under ultrasound guidance followed by insertion of a 5 Beninese sheath. ??Selective left and right coronary angiography was performed using 5 Beninese JL4 and 5F JR4 catheters respectively. ?? Orthogonal views were taken. ??JR4 diagnostic catheter was used for selective bypass graft Angiography of aortic coronary bypass grafts. ?? Bioprosthetic Aortic valve was not crossed. Estimated blood loss was minimal. ??All specimens removed. The angiographic and other findings, and details of intervention are given below. FINDINGS: [place] CORONARY ARTERIES: LEFT MAIN CORONARY: ??Large caliber, [...] caliber graft, no significant focal stenosis. ??The [place] vessel after anastomosis is a medium caliber vessel without significant focal stenosis. SVG TO RPDA: ??Large caliber graft, [id number], 30-50% diffuse plaque is seen in the [...] guidewire was zeroed outside the body. ??Five Beninese JL4 guide catheter was advanced into the [...] was used to complete this document, therefore, teacher vocal variances may occur. Nabil Harding MD, [facility] 03/27/24 Nabil Harding MD CV CARDIAC CATH PROCEDURES Edite d Result - Final * POCT glucose (03/27/2024 7:13 AM ELECTRONIC TRANSACTION IMPLEMENTER) Glucose, POC 172 70 - 199 mg/dL Blood 03/27/2024 7:13 AM ELECTRONIC TRANSACTION IMPLEMENTER 03/27/2024 7:13 AM ELECTRONIC TRANSACTION IMPLEMENTER Nabil Harding MD LAB POCT ORDERABLES - DEVICE Fin al Result JOSE MIGUEL [address] [facility] Department [place] [address] * XR Chest 1 Vw Portable (03/19/2024 3:19 AM ELECTRONIC TRANSACTION IMPLEMENTER) Anatomical Region Laterality Modality Body, Chest N/A Computed Radiogr aphy 03/19/2024 9:19 AM ELECTRONIC TRANSACTION IMPLEMENTER Impressions 03/19/2024 9:19 AM ELECTRONIC TRANSACTION IMPLEMENTER Comparison is made to a prior study dated 06/30/2022. Median sternotomy wires are present. ??No new focal consolidation, pulmonary edema, or pneumothorax. ??Possible trace left pleural effusion. ??No pneumothorax. ??Cardiomediastinal silhouette is stable. Electronically signed by: Blanca Noriega M.D. Narrative 03/19/2024 9:19 AM ELECTRONIC TRANSACTION IMPLEMENTER EXAMINATION: XR CHEST 1 VIEW HISTORY: General [...] sult * (ABNORMAL) eGFR (03/19/2024 2:21 AM ELECTRONIC TRANSACTION IMPLEMENTER) eGFR 24(L) >=60 mL/min/1. 73 m2 Comment: [...] last reviewed 2021. Blood 03/19/2024 2:21 AM ELECTRONIC TRANSACTION IMPLEMENTER 03/19/2024 2:25 AM ELECTRONIC TRANSACTION IMPLEMENTER us Reese Aguillon MD LAB BLOOD ORDERABLES Final Result JOSE MIGUEL [address] [address] Department [place] [address] * (ABNORMAL) Differential, auto (03/19/2024 2:21 AM ELECTRONIC TRANSACTION IMPLEMENTER) Neutrophil abs 10.4(H) 1.5 - 6.5 K/cumm Imm gran abs 0.1 0.0 - 0.1 K/cumm [facility] Lymphocyte abs 1.1 0.8 - 3.3 K/cumm [facility] Monocyte abs 1.1(H) 0.2 - 0.8 K/cumm [facility] Eosinophil abs 0.1 0.0 - 0.5 K/cumm [facility] Basophil abs 0.1 0.0 - 0.1 K/cumm [facility] Neutrophil pct 81.5 % [facility] Comment: Interpretive Data Percent cell count reference ranges are not reported, since discordance with absolute values may lead to misinterpretation of CBC data. Current Interpretive Data was last revised on 2017. Imm gran pct 0.5 % [facility] Comment: Interpretive Data Percent cell count reference ranges are not reported, since discordance with absolute values may lead to misinterpretation of CBC data. Current Interpretive Data was last revised on 2017. Lymphocyte pct 8.7 % [facility] Comment: Interpretive Data Percent cell count reference ranges are not reported, since discordance with absolute values may lead to misinterpretation of CBC data. Current Interpretive Data was last revised on 2017. Monocyte pct 8.4 % [facility] Comment: Interpretive Data Percent cell count reference ranges are not reported, since discordance with absolute values may lead to misinterpretation of CBC data. Current Interpretive Data was last revised on 2017. Eosinophil pct 0.5 % [facility] Comment: Interpretive Data Percent cell count reference ranges are not reported, since discordance with absolute values may lead to misinterpretation of CBC data. Current Interpretive Data was last revised on 2017. Basophil pct 0.4 % [facility] Comment: Interpretive Data Percent cell count reference ranges are not reported, since discordance with absolute values may lead to misinterpretation of CBC data. Current Interpretive Data was last revised on 2017. Blood 03/19/2024 2:21 AM ELECTRONIC TRANSACTION IMPLEMENTER 03/19/2024 2:25 AM ELECTRONIC TRANSACTION IMPLEMENTER us Reese Aguillon MD LAB BLOOD ORDERABLES Final Result JOSE MIGUEL [address] [address] Department [place] [address] * (ABNORMAL) Pro B-type natriuretic peptide (03/19/2024 2:21 AM ELECTRONIC TRANSACTION IMPLEMENTER) NT-proBNP 481(H) <=450 pg/mL Comment: Interpretive Comments: [...] as advanced age. - References: 1. Angelo MCKNIGHT et.al. Eur Heart J. 2006:27:330-337. 2. Wendy RW, Reece SERRA. J. AM Jenni Cardiol: Cardiovasc Imag. 2009;2: 216- 225. Interpretive Data Last Revised Date: 2017. Blood 03/19/2024 2:21 AM ELECTRONIC TRANSACTION IMPLEMENTER 03/19/2024 3:33 AM ELECTRONIC TRANSACTION IMPLEMENTER Reese Aguillon MD LAB BLOOD ORDERABLES Final Result [facility] [address] [address] Department [place] [address] * Respiratory pathogen panel Nasopharyngeal (03/19/2024 2:21 AM ELECTRONIC TRANSACTION IMPLEMENTER) Pathologist [facility] Influenza A RNA Not Detected Not Detected Influenza B RNA Not Detected Not Detected [facility] RSV RNA Not Detected Not Detected [facility] COVID-19 RNA Not Detected Not Detected [facility] Coronavirus 229E RNA Not Detected Not Detected [facility] Coronavirus HKU1 RNA Not Detected Not Detected [facility] Coronavirus NL63 RNA Not Detected Not Detected [facility] Coronavirus OC43 RNA Not Detected Not Detected [facility] Adenovirus DNA Not Detected Not Detected [facility] Metapneumovirus RNA Not Detected Not Detected [facility] Rhinovirus/Enterov irus RNA Not Detected Not Detected [facility] Parainfluenza 1 RNA Not Detected Not Detected [facility] Parainfluenza 2 RNA Not Detected Not Detected [facility] Parainfluenza 3 RNA Not Detected Not Detected [facility] Parainfluenza 4 RNA Not Detected Not Detected [facility] B. pertussis DNA Not Detected Not Detected [facility] B. parapertussis DNA Not Detected Not Detected [facility] C. pneumoniae DNA Not Detected Not Detected [facility] M. pneumoniae DNA Not Detected Not Detected [facility] Comment: Interpretive Data The VIVA FilmArray Respiratory Panel (RP2.1) assay is a [...] assay has FDA clearance for testing of BRIDGE INSPECTOR swabs. ??The performance characteristics of this assay have been determined by [facility]. Current interpretive data was last revised on 2020. Nasopharyngeal 03/19/2024 2: 21 AM ELECTRONIC TRANSACTION IMPLEMENTER 03/19/2024 2:24 AM ELECTRONIC TRANSACTION IMPLEMENTER Narrative JOSE MIG[facility]EL BOWERS - 03/19/2024 3:21 AM ELECTRONIC TRANSACTION IMPLEMENTER Is the Patient experiencing symptoms consistent with COVID?->Yes Surveillance testing for transplant patient?->No Reese Aguillon MD LAB MICROBIOLOGY - GENERAL ORDERABLES Final Result [facility]EL BOWERS [address] [address] Department [place] [address] * (ABNORMAL) CBC with auto differential (03/19/2024 2:21 AM ELECTRONIC TRANSACTION IMPLEMENTER) WBC 12.7(H) 3.8 - 9.9 K/cumm Hgb 13.1 13.0 - 17.5 g/dL [facility] Hct 40.1 38.9 - 50.3 % [facility] Plt 186 150 - 400 K/cumm [facility] MPV 10.7 9.1 - 12.3 fL [facility] RBC 4.47 4.30 - 5.80 M/cumm [facility] MCV 89.7 81.3 - 96.4 fL [facility] MCH 29.3 27.1 - 33.[address] [facility] MCHC 32.7 32.3 - 35.7 g/dL [facility] RDW CV 14.6 11.1 - 14.9 % [facility] RDW SD 47.8 35.7 - 48.1 fL [facility] NRBC abs 0.00 0.00 - 0.01 K/cumm [facility] Blood 03/19/2024 2:21 AM ELECTRONIC TRANSACTION IMPLEMENTER 03/19/2024 2:25 AM ELECTRONIC TRANSACTION IMPLEMENTER Reese Aguillon MD LAB BLOOD ORDERABLES Final Result [facility] [address] [address] Department [place] [address] * (ABNORMAL) Comprehensive metabolic panel (03/19/2024 2:21 AM ELECTRONIC TRANSACTION IMPLEMENTER) Pathologist [facility] Sodium 141 135 - 145 mmol/L Potassium, pl 3.2(L) 3.3 - 4.9 mmol/L [facility] Chloride 99 97 - 110 mmol/L [facility] CO2 29 22 - 32 mmol/L [facility] Anion gap 13 2 - 15 mmol/L [facility] BUN 40(H) 6 - 25 mg/dL [facility] Creatinine 2.59(H) 0.80 - 1.30 mg/dL [facility] Glucose 107 70 - 199 mg/dL [facility] Comment: Interpretive Data Fasting glucose >/= 126 [...] Units/L [facility] CH Blood 03/19/2024 2:21 AM ELECTRONIC TRANSACTION IMPLEMENTER 03/19/2024 2:25 AM ELECTRONIC TRANSACTION IMPLEMENTER Reese Aguillon MD LAB BLOOD ORDERABLES Final Result JOSE MIGUEL [address] [address] Department [place] [address] * (ABNORMAL) POCT hemoglobin A1c (09/22/2023 10:15 AM CDT) Hemoglobin A1C, POC 9.0 % Capillary blood 09/22/2023 1 0:15 AM CDT Joseph Brush MD POINT OF CARE TEST ORDERABLES Fi nal Result * POCT lipid panel (06/16/2023 8:11 AM ELECTRONIC TRANSACTION IMPLEMENTER) Cholesterol, POC 140 mg/dL Comment:GLU = 225 HDL, POC 34 mg/dL Triglycerides, POC 212 mg/dL LDL Cholesterol POC 64 mg/dL Chol/HDL Ratio, POC 1.9 Non-HDL Cholesterol, POC 106 mg/dL Cholesterol Total, POC 140 mg/dL Capillary blood 06/16/2023 8 :11 AM ELECTRONIC TRANSACTION IMPLEMENTER Aguila Chris MD POINT OF CARE TEST ORDER MIKE Final Result * Hepatitis C Antibody Reflex Hepatitis C RNA Quantitative PCR Blood (06/14/2019 3:47 PM ELECTRONIC TRANSACTION IMPLEMENTER) Hep C Ab Negative Negative [facility] Blood specimen (specimen) 06/14/2019 3:47 PM ELECTRONIC TRANSACTION IMPLEMENTER 06/14/2019 8:03 PM ELECTRONIC TRANSACTION IMPLEMENTER Notinfile Unknown LAB MICROBIOLOGY - GENERAL ORD ERABLES Final Result [facility] BOWERS [address] [address] Department of Laboratories [place], [place] [id number] * COLONOSCOPY REPORT (05/18/2014) Anatomical Region Laterality Modality Other Narrative 05/18/2014 Ordered by an unspecified provider. Historical Provider GI PROCEDURE ORDERABLES F inal Result from Last 3 Months or Most Recently Relevant to Health Maintenance Insurance [employer] PPO [employer] PPO Advance Directives For more information, please contact: [phone] * Full Code (Latest Code Status on File) Date Activated Date Inactivated Comments 06/30/2022 6:44 PM 07/03/2022 5:32 PM * Full Code Date Activated Date Inactivated Comments 06/30/2022 6:39 PM 06/30/2022 6:44 PM * Full Code Date Activated Date Inactivated Comments 01/29/2022 2:14 PM 01/30/2022 6:06 PM * Full Code Date Activated Date Inactivated Comments 09/03/2021 12:10 PM 09/04/2021 7:37 PM Care Teams Marketing Mgr Relationship Specialty Start Date End Date Miguel Torres DO [address] [address] [place] [address] [address] [place] [address] PCP - General Internal Medicine 01/17/24 Yfn Gill MD Referring Physician Nephrology 01/22/22 Aguila Chris MD Consulting Physician Cardiology 01/22/22 [place] [address] [facility] [address] [place] [address] Consulting Physician Endocrinology Diabetes & Metabolism 01/22/22 Neeraj La MD [address] [facility] [address] [address] Surgeon Vascular Surgery 01/30/22
--- OUTSIDE RECORDS SUMMARY | 2024-05-31 13:23 | XMS_ITS | Patient Health Summary ---
Author Organization [facility] Address [address] [place] [address] Care Team Providers Care Air Intelligence Specialist Name Role Phone SabrinaArnel barbour Devan ROBISON Primary Care Provider [phone] Note from [facility],non-owned Affiliates and Associated Physician Practices is amultiple site organization consisting of ambulatory clinics and hospital sitesin [place], [place], [place] and [place]. This disclosure is being madepursuant to the Care Everywhere program and may not contain all information available regarding this patient. Last updated 18.[facility] Allergies * Codeine(Itching) -Medium Criticality * Tramadol(Unknown) Medications * Be aware that medications may not be up to date on this document. Alwaysverify current medications with the patient. * amLODIPine (NORVASC) 5 MG tablet(Started 12/18/2020) Take 5 mg by mouth once daily * omeprazole (PRILOSEC) 20 MG capsule Take 20 mg by mouth once daily * hydrALAZINE (APRESOLINE) 50 MG tablet(Started 02/24/2021) Take 1 tablet by mouth 2 times daily * finasteride (PROSCAR) 5 MG tablet Take 5 mg by mouth once daily * terazosin (HYTRIN) 10 MG capsule Take 10 mg by mouth once daily * insulin aspart (NOVOLOG) vial Inject subcutaneously 2 times daily * lisinopril (PRINIVIL; ZESTRIL) 20 MG tablet(Started 11/28/2020) Take 1 tablet by mouth 2 times daily * rosuvastatin (CRESTOR) 10 MG tablet Take 10 mg by mouth once daily * metoprolol tartrate (LOPRESSOR) 50 MG tablet Take 50 mg by mouth 2 times daily * multivitamin daily tablet Take 1 tablet by mouth daily with food * furosemide (LASIX) 40 MG tablet(Started 03/12/2021) Take 1 tablet by mouth 2 times daily * allopurinol (ZYLOPRIM) 300 MG tablet(Started 04/14/2020) Take 1 tablet by mouth once daily * aspirin EC (ECOTRIN) 81 MG tablet Take 81 mg by mouth once daily * Alpha-Lipoic Acid 600 MG TABS Take 1 tablet by mouth once daily * gabapentin (NEURONTIN) 300 MG capsule(Started 01/23/2021) Take 1 capsule by mouth 5 times daily * vitamin D3 (CHOLECALCIFEROL) 25 MCG (1000 UNITS) tablet Take by mouth once daily * pregabalin (LYRICA) 50 MG capsule(Started 05/27/2021) Take 1 (one) capsule by mouth 3 times daily 5 refills by 11/23/2021 Social History Tobacco Use Types Packs/Day Years Used Date Smoking Tobacco: Former Smokeless Tobacco: Never Sex and Gender Information Value Date Recorded Sex Assigned at Not on file Gender Identity Not on file Sexual Orientation Not on file Last Filed Vital Signs Vital Sign Reading Time Taken Comments Blood Pressure 136/70 05/05/2021 1:09 PM BAKERY MANAGER Pulse 76 05/05/2021 1:09 PM BAKERY MANAGER Temperature - - Respiratory Rate 14 05/05/2021 1:09 PM BAKERY MANAGER Oxygen Saturation 98% 05/05/2021 1:09 PM BAKERY MANAGER Inhaled Oxygen Concentration - - Weight 121.1 kg (267 lb) 05/05/2021 1:09 PM BAKERY MANAGER Height 172.7 cm (5' 8 ) 05/05/2021 1:09 PM BAKERY MANAGER Body Mass Index 40.6 05/05/2021 1:09 PM BAKERY MANAGER Procedures * NERVE CONDUCTION TEST(Performed 05/05/2021) Performed for Cubital tunnel syndrome of both upper extremities Results * NERVE CONDUCTION TEST (05/05/2021 5:28 PM BAKERY MANAGER) Narrative Kenny Bishop MD - 05/05/2021 5:28 PM BAKERY MANAGER Kenny Bishop MD ? 05/06/2021 ??5:31 PM [facility] [id number] [place] [address] Test Date: ??05/05/2021 Patient: Gabriel Celeste : 1945 Physician: Kenny Bishop MD Sex: Male Height: 5' 8 Ref Phys: ?? ID#: [id number] Weight: 276 lbs. ?? Patient Complaints: Patient is a 75 year old male who was referred to rule out cubital tunnel syndrome. Patient presents with complaints of numbness and tingling in the 4th and 5th digits bilaterally. ?? Symptoms have been present for 2 months. History type 2 DM and bilateral CTS release.. Nerve Conduction Studies Anti Sensory Summary Table Stim Site NR Peak (ms) Norm Peak (ms) P-T Amp (??V) Norm P-T Amp Site1 Site2 Delta-P (ms) Dist (cm) Tobi (m/s) Norm Tobi (m/s) Left Radial Anti Sensory (Base 1st Digit) ??32.1 ??C Wrist ?*3.1 <3.1 14.1 ??Wrist Base 1st Digit 3.1 0.0 ?? Site 2 ?3.1 ??17.5 ? Right Radial Anti Sensory (Base 1st Digit) ??31.7 ??C Wrist ?2.5 <3.1 7.7 ??Wrist Base 1st Digit 2.5 0.0 ?? Site 2 ?2.4 ??6.9 ? Motor Summary Table Stim Site NR Onset (ms) Norm Onset (ms) O-P Amp (mV) Norm O-P Amp Amp (Prev) (%) Site1 Site2 Delta-0 (ms) Dist (cm) Tobi (m/s) Norm Tobi (m/s) Left Median Motor (Abd Poll Brev) ??30.1 ??C Wrist ?*4.8 <4.4 *4.7 >5 100.0 Elbow Wrist 5.6 25.0 *45 >50 Elbow ?10.4 ??4.2 ??89.4 ? Right Median Motor (Abd Poll Brev) ??29.1 ??C Wrist ?4.2 <4.4 *3.6 >5 100.0 Elbow Wrist 4.9 25.0 51 >50 Elbow ?9.1 ??3.4 ??94.4 ? Left Ulnar Motor (Abd Dig Minimi) ??31.9 ??C Wrist ?3.6 <4.2 3.6 >3 100.0 B Elbow Wrist 4.4 21.5 *49 >53 B Elbow ?8.0 ??3.5 ??97.2 A Elbow B Elbow 2.5 10.0 40 ?? A Elbow ?10.5 ??3.1 ??88.6 ? Right Ulnar Motor (Abd Dig Minimi) ??31.1 ??C Wrist ?3.1 <4.2 7.2 >3 100.0 B Elbow Wrist 4.0 22.5 56 >53 B Elbow ?7.1 ??5.8 ??80.6 A Elbow B Elbow 2.4 10.0 42 ?? A Elbow ?9.5 ??5.0 ??86.2 ? Motor Inching Summary Table Stim Site NR Onset (ms) Norm Onset (ms) O-P Amp (mV) Norm O-P Amp Site1 Site2 Delta-0 (ms) Norm Delta (ms) Dist (cm) Tobi (m/s) Norm Tobi (m/s) Left Ulnar Motor Inching (Abd Dig Minimi) ??32.5 ??C -2 cm ?8.1 ??2.3 ??-1 cm -2 cm 0.0 ??0.0 ??<0.4 -1 cm ?8.1 ??3.0 ??Elbow -1 cm 2.2 ??0.0 ??<0.4 Elbow ?10.3 ??2.1 ??+1 cm Elbow 0.3 ??0.0 ??<0.4 +1 cm ?10.6 ??2.7 ??+2 cm +1 cm 0.4 ??0.0 ??<0.4 +2 cm ?11.0 ??2.6 ? Right Ulnar Motor Inching (Abd Dig Minimi) ??31 ??C -2 cm ?6.6 ??3.3 ??-1 cm -2 cm 1.0 ??0.0 ??<0.4 -1 cm ?7.6 ??2.7 ??Elbow -1 cm 1.6 ??0.0 ??<0.4 Elbow ?9.2 ??4.8 ??+1 cm Elbow 0.6 ??0.0 ??<0.4 +1 cm ?9.8 ??5.1 ??+2 cm +1 cm 0.6 ??0.0 ??<0.4 +2 cm ?10.4 ??5.0 ? Comparison Summary Table Stim Site NR Peak (ms) Norm Peak (ms) P-T Amp (??V) Site1 Site2 Delta-P (ms) Norm Delta (ms) Left Median/Ulnar Palm Comparison (Wrist - 8cm) ??32.3 ??C Median Palm ?*2.5 <2.2 66.7 Median Palm Ulnar Palm ?? Ulnar Palm *NR ??<2.2 ? Right Median/Ulnar Palm Comparison (Wrist - 8cm) ??31.9 ??C Median Palm ?*2.9 <2.2 10.6 Median Palm Ulnar Palm ?? Ulnar Palm *NR ??<2.2 ? F Wave Studies NR F-Lat (ms) Lat Norm (ms) L-R F-Lat (ms) L-R Lat Norm Left Median (Mrkrs) (Abd Poll Brev) ??31.3 ??C ?? *32.38 <29.9 0.00 <2.2 Right Median (Mrkrs) (Abd Poll Brev) ??30.5 ??C ?? *32.38 <29.9 0.00 <2.2 Left Ulnar (Mrkrs) (Abd Dig Min) ??32.4 ??C ?? *34.19 <30.2 0.00 <2.5 Right Ulnar (Mrkrs) (Abd Dig Min) ??31.1 ??C ?? *34.19 <30.2 0.00 <2.5 Nerve Conduction Studies Anti Sensory Left/Right Comparison Stim Site L Lat (ms) R Lat (ms) L-R Lat (ms) L Amp (??V) R Amp (??V) L-R Amp (%) Site1 Site2 L Tobi (m/s) R Tobi (m/s) L-R Tobi (m/s) Radial Anti Sensory (Base 1st Digit) ??32.1 ??C Wrist *3.1 2.5 0.6 14.1 7.7 45.4 Wrist Base 1st Digit ? Site 2 3.1 2.4 0.7 17.5 6.9 60.6 ? Motor Left/Right Comparison Stim Site L Lat (ms) R Lat (ms) L-R Lat (ms) L Amp (mV) R Amp (mV) L-R Amp (%) Site1 Site2 L Tobi (m/s) R Tobi (m/s) L-R Tobi (m/s) Median Motor (Abd Poll Brev) ??30.1 ??C Wrist *4.8 4.2 0.6 *4.7 *3.6 23.4 Elbow Wrist *45 51 6 Elbow 10.4 9.1 1.3 4.2 3.4 19.0 ? Ulnar Motor (Abd Dig Minimi) ??31.9 ??C Wrist 3.6 3.1 0.5 3.6 7.2 *50.0 B Elbow Wrist *49 56 7 B Elbow 8.0 7.1 0.9 3.5 5.8 39.7 A Elbow B Elbow 40 42 2 A Elbow 10.5 9.5 1.0 3.1 5.0 38.0 ? Comparison Left/Right Comparison Stim Site L Lat (ms) R Lat (ms) L-R Lat (ms) L Amp (??V) R Amp (??V) L-R Amp (%) Median/Ulnar Palm Comparison (Wrist - 8cm) ??32.3 ??C Median Palm *2.5 *2.9 0.4 66.7 10.6 84.1 Ulnar Palm ? Motor Inching Left/Right Comparison Stim Site L Lat (ms) R Lat (ms) L-R Lat (ms) L Amp (mV) R Amp (mV) L-R Amp (%) Site1 Site2 L Tobi (m/s) R Tobi (m/s) L-R Tobi (m/s) Ulnar Motor Inching (Abd Dig Minimi) ??32.5 ??C -2 cm 8.1 6.6 1.5 2.3 3.3 30.3 -1 cm -2 cm ? -1 cm 8.1 7.6 0.5 3.0 2.7 10.0 Elbow -1 cm ? Elbow 10.3 9.2 1.1 2.1 4.8 56.3 +1 cm Elbow ? +1 cm 10.6 9.8 0.8 2.7 5.1 47.1 +2 cm +1 cm ? +2 cm 11.0 10.4 0.6 2.6 5.0 48.0 ? NCV Findings: ? ? Evaluation of the left median motor nerve showed prolonged distal onset latency (4.8 ms), reduced amplitude (4.7 mV), and decreased conduction velocity (Elbow-Wrist, 45 m/s). ? ? The right median motor nerve showed reduced amplitude (3.6 mV). ? ? The left ulnar motor nerve showed decreased conduction velocity (B Elbow-Wrist, 49 m/s). ? ? The left radial sensory nerve showed prolonged distal peak latency (3.1 ms). ? ? The left median/ulnar (palm) comparison and the right median/ulnar (palm) comparison nerves showed no response (Ulnar Palm) and prolonged distal peak latency (L2.5, R2.9 ms). ? ? All remaining nerves (as indicated in the following tables) were within normal limits. ? ? Left vs. Right side comparison data for the ulnar motor nerve indicates abnormal L-R amplitude difference (50.0 %). ? ? All remaining left vs. right side differences were within normal limits. Impression: 1. 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 Bilateral ulnar neuropathy at the elbow 3. Absent ulnar sensory potentials at Guyon? s canal. This can be seen with local compression or reflect the elbow entrapments. Kenny Bishop MD Waveforms: ? Kenny Bishop MD [facility] Care Teams Air Intelligence Specialist Relationship Specialty Start Date End Date Arnel Gonzalez DO [address] [facility] [address] [place] [address] PCP - General 01/03/21
--- OUTSIDE RECORDS SUMMARY | 2024-05-31 13:23 | XMS_ITS | Continuity of Care Document ---
Author Organization [facility] Address [address] [place] [address] Phone Care Team Providers Care Switching Clerk Name Role Phone Zaheer Tom Unavailable Unavailable [...] Diagnoses Date Provider Providers Copied on Encounter [facility], [address], [place], [place], [id number], [place] tel:[phone] [facility] No Information 0 Vaishali Schwab. [facility] [address], [address], [place]. tel:[phone] Referring Provider: Zaheer evans, [address] [address], [place], [address]. tel:[phone] [facility], [address], [place], [place], [id number], [place] tel:[phone] [facility] [place] No Information [phone] Krishnasamy Zaheer. [address] [place], [place] [address]ate [place] [address], [place], [place], [facility], [place]. tel:[phone] [facility], [address], [place], [place], [id number], [place] tel:[phone] [facility] No Information 200 [address] [employer]. [address] [facility], [address], [place], [place], [id number], [place]. tel:[phone] Referring Provider: Zaheer evans, [address] [place], [place] [address]ate [facility] [address], [place], [place], [facility]. tel:[phone] sulting Provider: Leif Pineda, [address] [place] [address], [place], [place], [facility]. tel:[phone] [facility], [address] [place] [address] [address], [place], [place], [id number], [place] tel:[phone] [facility] No Information 9 Krishnasamy Zaheer. [address] [place], [place] [address]ate [facility] [address], [place], [place], [facility], [place]. tel:[phone] Referring Provider: Zaheer evans, [address] [place], [place] [address]ate [facility] [address], [place], [place], [facility]. tel:[phone] [facility], [address] [place] [address] [address], [place], [place], [id number], [place] tel:[phone] [facility] [place] No Information 200 9 Krishnasamy Zaheer. [address] [place], [place] [address]ate [facility] [address], [place], [place], [facility], [place]. tel:[phone] [facility], [address], [place], [place], [id number], [place] tel:[phone] [facility] No Information 200 7 Juan Daniel Rios. [address] [facility], [address], [place], [place], [id number], [place]. tel:[phone] Family History Family Member Type Diagnosis Age At Onset No Information Payers Payer name Insurance type Covered republican ID Authoriza tion(s) [place] [id number] Social History Type Description Quantity Date Captured [...]
--- OUTSIDE RECORDS SUMMARY | 2024-05-31 13:23 | XMS_ITS | Clinical Summary ---
Author Organization [facility] Address [address] [place] [address] Phone Care Team Providers Care Artifacts Conservator Name Role Phone Arnel Gonzalez DO Primary Care Provider [phone] Allergies Active Allergy Reactions Criticality Noted Date Comments Codeine Itching Medium 08/08/2013 Tramadol 10/18/2017 Medications Medication Sig Dispensed Refills Start Date End Date Status aspirin EC 81 MG EC tablet Take 81 mg by mouth daily 12/20/2018 Active finasteride (PROSCAR) 5 MG tablet 5 mg 12/27/2013 Active multivitamin (THERAGRAN) tablet take 1 tablet by oral route every day with food 05/06/2015 Active nitroglycerin (NITROLINGUAL) 0.4 MG/SPRAY spray Place 1 spray under the tongue 12/01/2017 Active omeprazole (PriLOSEC) [address] capsule Take 20 mg by mouth daily Active rosuvastatin (CRESTOR) 10 MG tablet TAKE 1 TABLET EVERY DAY 04/25/2018 Active terazosin (HYTRIN) 10 MG capsule 10 mg 11/02/2012 Active lisinopril (PRINIVIL,ZESTRIL) 20 MG tablet Take 20 mg by mouth 2 (two) times a day Active ACCU-CHEK SHAYY PLUS test strip 11/06/2019 Active Accu-Chek Softclix Lancets lancets 08/25/2019 Active NOVOLOG MIX 70/30 FLEXPEN (70-30) 100 UNIT/ML injection 10/16/2019 Active hydrALAZINE (APRESOLINE) 50 MG tablet 09/20/2019 Active allopurinol (ZYLOPRIM) 300 MG tablet 04/14/2020 Active Droplet Pen [place] 31G X 5 MM misc 07/28/2020 Active Alpha-Lipoic Acid 600 MG tablet Take 1 tablet by mouth daily Active amLODIPine (NORVASC) 10 MG tablet Take 1 tablet (10 mg total) by mouth 1 (one) time each day 90 tablet 3 08/25/2021 Active Nebivolol HCl 20 MG tablet Take 20 mg by mouth 1 (one) time each day 100 tablet 3 09/09/2021 Active clopidogrel (PLAVIX) 75 MG tablet 10/20/2021 Active fluticasone (FLONASE) 50 MCG/ACT nasal spray 11/12/2021 Active hydrOXYzine (ATARAX) 10 MG tablet 09/23/2021 Active tiZANidine (ZANAFLEX) 4 MG tablet 09/23/2021 Active calcium carbonate (OS-JENNIFER) 1250 (500 Ca) MG chewable tablet Chew 1 tablet 1 (one) time each day 1 with biggest meal Active hydroCHLOROthiazide (HYDRODIURIL) 25 MG tablet Take 1 tablet (25 mg total) by mouth 1 (one) time each day 30 tablet 11 12/22/2021 Active ergocalciferol (VITAMIN D2) 1.25 MG (71405 UT) capsule TAKE ONE CAPSULE BY MOUTH EVERY WEEK. 12 capsule 04/29/2022 Active Active Problems Problem Noted Date Diagnosed Date Chronic kidney disease stage 3B 03/05/2021 Vitamin D deficiency 09/02/2020 Chronic heart failure co-occ urrent with normal ejection fraction 06/29/2019 Hypertensive disorder 06/29/2019 Esophageal reflux 05/19/2019 Persistent proteinuria 03/06/2019 Hypertensive heart disease with congestive heart failure 05/06/2015 Overview (03/06/2019): Hypertensive heart disease with diastolic heart failure Type 2 diabetes mellitus wit h diabetic chronic kidney disease 05/06/2015 Overview (03/06/2019): Type 2 diabetes mellitus with complication Coronary arteriosclerosis in [place] artery 01/29 Overview (03/06/2019): CAD (coronary artery disease) Coronary artery disease involving [place] coronary artery of [place] heart without angina pectoris Coronary atherosclerosis 01/29/2015 Overview (08/30/2020): CAD (coronary artery disease) Coronary artery disease involving [place] coronary artery of [place] heart without angina pectoris H/O: artificial heart valve 12/27/2013 Overview (03/06/2019): S/P aortic valve replacement with bioprosthetic valve Aortic valve stenosis 10/19/2013 Pure hypercholesterolemia 12/18/2009 Obstructive sleep apnea 12/18/2009 Resolved Problems Problem Noted Date Diagnosed Date Resolved Date Nonspecific abnormal results of function study of kidney 03/06/2019 08/30/2020 Immunizations Name Administration Dates Next Due Influenza TIV (IM) 02/26/2021,03/03/2020, 019 Influenza Trivalent Adjuvanted 02/01/2020 Influenza, Injectable, Quadrivalent 02/27/2021 Pneumococcal Conjugate 13-Valent 01/31/2017 Zoster Recombinant 05/07/2021,02/18/2021 Family History Medical History Relation Comments Kidney disease Neg Hx Social History Tobacco Use Types Packs/Day Years Used Date Smoking Tobacco: Former Smokeless Tobacco: Never Alcohol Use Standard Drinks/Week Comments Yes 0 (1 standard drink = 0.6 oz pur e alcohol) occasional Sex and Gender Information Value Date Recorded Sex Assigned at Not on file Gender Identity Not on file Sexual Orientation Not on file Last Filed Vital Signs Vital Sign Reading Time Taken Comments Blood Pressure 124/60 11/17/2021 3:00 PM CDT Pulse 84 11/17/2021 3:00 PM CDT Temperature 36.8 ??C (98.3 ??F) 11/17/2021 3:00 PM CD T Respiratory Rate - - Oxygen Saturation - - Inhaled Oxygen Concentration - - Weight 116 kg (256 lb) 11/17/2021 3:00 PM CDT Height 172.7 cm (5' 8 ) 11/17/2021 3:00 PM CDT Body Mass Index 38.92 11/17/2021 3:00 PM CDT Plan of Treatment Health Maintenance Due Date Last Done Comments Pneumococcal PPSV23/PCV13 65 + Years / Low and Medium Risk (2 of 3 - PPSV23 or PCV20) 01/31/2018 01/31/2017 COVID-19 Vaccine (2 - 2022-2 4 season) 2024 03/11/2021 Influenza Vaccine (#1) 2024 , 03/03/2020, 02/01/2020, Additional history exists Care Teams Artifacts Conservator Relationship Specialty Start Date End Date Arnel Gonzalez DO [address] [facility] [address] [place] [id number] PCP - General Internal Medicine 01/31/19
[2024-05-31 13:46] LABS: Albumin Level 4.3 g/dL (3.5-5.1); Anion Gap 11 mmol/L (4-12); Blood Urea Nitrogen 44 mg/dL (9-20); Calcium 9.4 mg/dL (8.4-10.2); Carbon Dioxide 33 mmol/L (22-30); Chloride 95 mmol/L (98-107); Estimated Glomerular Filt Rate 30; Glucose 266 mg/dL (65-110); Phosphorus 3.2 mg/dL (2.5-4.5); Potassium 2.9 mmol/L (3.4-5.0); Sodium 139 mmol/L (137-145)
[2024-05-31 14:39] LABS: Creatinine Urine 49.8 mg/dL; Total Protein Urine Random 32 mg/dL; Ur Ttl Prot Creatinine Ratio 0.64 mg/mg (0-0.20)
[2024-05-31 15:07] LABS: Parathyroid Intact 242.5 pg/mL (14.5-75.2)
[2024-05-31 15:11] LABS: Vitamin D 25 Hydroxy 57.5 ng/mL
== END 2024-05-31 12:33 | disposition home or self-care (01) ==
PROVIDERS: PCP Internal Medicine; Visit Provider Internal Medicine Nephrology
DX: E21.1 Secondary hyperparathyroidism, not elsewhere classified (principal); I12.9 Hypertensive chronic kidney disease with stage 1 through stage 4 chronic kidney disease, or unspecified chronic kidney disease; N18.32 Chronic kidney disease, stage 3b
CPT/HCPCS: 36415; 80069; 82306; 82570; 83970; 84156; 85027

== ENCOUNTER 2024-06-14 11:49 | Observation (INO) | payer MEDICARE, SELFPAY ==
[2024-06-14] VITALS (44 sets, daily range): BP systolic 112–166; BP diastolic 58–135; PULSE 57–130; RESP 8–31; TEMP 37.4–39.7; O2SAT 85–99; BMI 41.8
--- NOTE | ~2024-06-14 | CT_ITS ---
Non-contrast CT scan of the Abdomen and Pelvis Clinical indication: Weakness, hematuria Technique: 2.5 mm axial scans were obtained through the abdomen and pelvis without intravenous or or al contrast. Dose reduction technique was used on this scan by utilizing automated exposure control a nd iterative reconstruction technique. The dose-length product (DLP) was 1650.58 mGy-cm. Findings: Images through the lung bases reveal mild bibasilar chronic interstitial disease, and calc ified left basilar granuloma. There is no evidence of renal or ureteral calculi. The kidneys and the ureters are nondilated. There is diffuse fatty infiltration of liver. Calcified hepatic and splenic granulomas are present. S pleen mildly enlarged, measuring 14.3 cm in length. The pancreas, gallbladder, and adrenals appear no rmal. There are atherosclerotic calcifications of the aorta. There is no evidence of bowel obstruction. Small fat-containing umbilical hernia noted. Images through the pelvis were performed. There is no evidence of ascites or lymphadenopathy. Urinary bladder unremarkable. No pelvic mass seen. No ascites. Impression: No definite etiology for hematuria identified. Mild bibasilar chronic interstitial disease. Small fat-containing umbilical hernia. Splenomegaly, of uncertain etiology. Reviewed, dictated and finalized at [facility]. 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 Mild bibasilar chronic interstitial disease. Small fat-containing umbilical hernia. Splenomegaly, of uncertain etiology.
--- NOTE | ~2024-06-14 | XR_ITS ---
EXAMINATION: XR chest 1V DATE: 06/14/2024 13:20 INDICATION: Generalized weakness. TECHNIQUE: A single frontal view of the chest was obtained. COMPARISON: Chest 2 views 03/23/2024 FINDINGS: There is no pneumonia, pleural effusion, or pneumothorax. Cardiomegaly is noted. There are changes of heart valve replacement. There are changes of anterior fusion procedure in cervical spine. IMPRESSION: 1. Cardiomegaly. Reviewed, dictated and finalized at location A. A PROFESSIONAL IMPRESSION: 1. Cardiomegaly.
--- OUTSIDE RECORDS SUMMARY | 2024-06-14 12:21 | XMS_ITS | Referral Summary ---
Author Organization [facility] Address [address] [facility] [place] [address] Care Team Providers Care Linux Architect Name Role Phone Arnel Gonzalez Primary Care Provider [phone] Source Comments [facility],non-[facility] Affiliates and Associated Physician Practices is amultiple site organization consisting of ambulatory clinics and hospital sitesin [place], [place], [place] and [place]. This disclosure is being madepursuant to the Care Everywhere program and may not contain all information available regarding this patient. Last updated 18.[facility] [employer] Allergies Active Allergy Reactions Criticality Noted Date [...] Comments Blood Pressure 136/70 05/05/2021 1:09 PM PSYCHIATRIC AIDES TEACHER Pulse 76 05/05/2021 1:09 PM PSYCHIATRIC AIDES TEACHER Temperature - - Respiratory Rate 14 05/05/2021 1:09 PM PSYCHIATRIC AIDES TEACHER Oxygen Saturation 98% 05/05/2021 1:09 PM PSYCHIATRIC AIDES TEACHER Inhaled Oxygen Concentration - - Weight 121.1 kg (267 lb) 05/05/2021 1:09 PM PSYCHIATRIC AIDES TEACHER Height 172.7 cm (5' 8 ) 05/05/2021 1:09 PM PSYCHIATRIC AIDES TEACHER Body Mass Index 40.6 05/05/2021 1:09 PM PSYCHIATRIC AIDES TEACHER Plan of Treatment Not on file Care Teams Linux Architect Relationship Specialty Start Date End Date Arnel Gonzalez DO [address] [facility] [address] [place], [place] [id number] PCP - General 01/03/21
--- OUTSIDE RECORDS SUMMARY | 2024-06-14 12:21 | XMS_ITS | Patient Health Summary ---
Author Organization [facility] Address [address] [place] [address] Care Team Providers Care Clinical Studies Specialist Name Role Phone SabrinaArnel barbour Devan ROBISON Primary Care Provider [phone] Note from [facility][note 3],non-owned Affiliates and Associated Physician Practices is amultiple site organization consisting of ambulatory clinics and hospital sitesin [place], [place], [place] and [place]. This disclosure is being madepursuant to the Care Everywhere program and may not contain all information available regarding this patient. Last updated 18.[facility] Allergies * Codeine(Itching) -Medium Criticality * Tramadol(Unknown) [...] Comments Blood Pressure 136/70 05/05/2021 1:09 PM REGISTERED NURSE MIDWIFE Pulse 76 05/05/2021 1:09 PM REGISTERED NURSE MIDWIFE Temperature - - Respiratory Rate 14 05/05/2021 1:09 PM REGISTERED NURSE MIDWIFE Oxygen Saturation 98% 05/05/2021 1:09 PM REGISTERED NURSE MIDWIFE Inhaled Oxygen Concentration - - Weight 121.1 kg (267 lb) 05/05/2021 1:09 PM REGISTERED NURSE MIDWIFE Height 172.7 cm (5' 8 ) 05/05/2021 1:09 PM REGISTERED NURSE MIDWIFE Body Mass Index 40.6 05/05/2021 1:09 PM REGISTERED NURSE MIDWIFE Procedures * NERVE CONDUCTION TEST(Performed 05/05/2021) Performed for Cubital tunnel syndrome of both upper extremities Results * NERVE CONDUCTION TEST (05/05/2021 5:28 PM REGISTERED NURSE MIDWIFE) Narrative Kenny Bishop MD - 05/05/2021 5:28 PM REGISTERED NURSE MIDWIFE Kenny Bishop MD 05/06/2021 5:31 PM [facility] [place] [facility] [address] [facility] [address] [address] Test Date: 05/05/2021 Patient: Gabriel Celeste DOB: 1945 Physician: Kenny Bishop MD Sex: Male Height: 5' 8 Ref Phys: ID#: [id number] Weight: 276 lbs. Patient Complaints: Patient is a 75 year old male who was referred to rule out cubital tunnel syndrome. Patient presents with complaints of numbness and tingling in the 4th and 5th digits bilaterally. Symptoms have been present for 2 months. History type 2 DM and bilateral CTS release.. Nerve Conduction Studies Anti Sensory Summary Table Stim Site NR Peak (ms) Norm Peak (ms) P-T Amp ( V) Norm P-T Amp Site1 Site2 Delta-P (ms) Dist (cm) Tobi (m/s) Norm Tobi (m/s) Left Radial Anti Sensory (Base 1st Digit) 32.1 C Wrist *3.1 <3.1 14.1 Wrist Base 1st Digit 3.1 0.0 Site 2 3.1 17.5 Right Radial Anti Sensory (Base 1st Digit) 31.7 C Wrist 2.5 <3.1 7.7 Wrist Base 1st Digit 2.5 0.0 Site 2 2.4 6.9 Motor Summary Table Stim Site NR Onset (ms) Norm Onset (ms) O-P Amp (mV) Norm O-P Amp Amp (Prev) (%) Site1 Site2 Delta-0 (ms) Dist (cm) Tobi (m/s) Norm Tobi (m/s) Left Median Motor (Abd Poll Brev) 30.1 C Wrist *4.8 <4.4 *4.7 >5 100.0 Elbow Wrist 5.6 25.0 *45 >50 Elbow 10.4 4.2 89.4 Right Median Motor (Abd Poll Brev) 29.1 C Wrist 4.2 <4.4 *3.6 >5 100.0 Elbow Wrist 4.9 25.0 51 >50 Elbow 9.1 3.4 94.4 Left Ulnar Motor (Abd Dig Minimi) 31.9 C Wrist 3.6 <4.2 3.6 >3 100.0 B Elbow Wrist 4.4 21.5 *49 >53 B Elbow 8.0 3.5 97.2 A Elbow B Elbow 2.5 10.0 40 A Elbow 10.5 3.1 88.6 Right Ulnar Motor (Abd Dig Minimi) 31.1 C Wrist 3.1 <4.2 7.2 >3 100.0 B Elbow Wrist 4.0 22.5 56 >53 B Elbow 7.1 5.8 80.6 A Elbow B Elbow 2.4 10.0 42 A Elbow 9.5 5.0 86.2 Motor Inching Summary Table Stim Site NR Onset (ms) Norm Onset (ms) O-P Amp (mV) Norm O-P Amp Site1 Site2 Delta-0 (ms) Norm Delta (ms) Dist (cm) Tobi (m/s) Norm Tobi (m/s) Left Ulnar Motor Inching (Abd Dig Minimi) 32.5 C -2 cm 8.1 2.3 -1 cm -2 cm 0.0 0.0 <0.4 -1 cm 8.1 3.0 Elbow -1 cm 2.2 0.0 <0.4 Elbow 10.3 2.1 +1 cm Elbow 0.3 0.0 <0.4 +1 cm 10.6 2.7 +2 cm +1 cm 0.4 0.0 <0.4 +2 cm 11.0 2.6 Right Ulnar Motor Inching (Abd Dig Minimi) 31 C -2 cm 6.6 3.3 -1 cm -2 cm 1.0 0.0 <0.4 -1 cm 7.6 2.7 Elbow -1 cm 1.6 0.0 <0.4 Elbow 9.2 4.8 +1 cm Elbow 0.6 0.0 <0.4 +1 cm 9.8 5.1 +2 cm +1 cm 0.6 0.0 <0.4 +2 cm 10.4 5.0 Comparison Summary Table Stim Site NR Peak (ms) Norm Peak (ms) P-T Amp ( V) Site1 Site2 Delta-P (ms) Norm Delta (ms) Left Median/Ulnar Palm Comparison (Wrist - 8cm) 32.3 C Median Palm *2.5 <2.2 66.7 Median Palm Ulnar Palm Ulnar Palm *NR <2.2 Right Median/Ulnar Palm Comparison (Wrist - 8cm) 31.9 C Median Palm *2.9 <2.2 10.6 Median Palm Ulnar Palm Ulnar Palm *NR <2.2 F Wave Studies NR F-Lat (ms) Lat Norm (ms) L-R F-Lat (ms) L-R Lat Norm Left Median (Mrkrs) (Abd Poll Brev) 31.3 C *32.38 <29.9 0.00 <2.2 Right Median (Mrkrs) (Abd Poll Brev) 30.5 C *32.38 <29.9 0.00 <2.2 Left Ulnar (Mrkrs) (Abd Dig Min) 32.4 C *34.19 <30.2 0.00 <2.5 Right Ulnar (Mrkrs) (Abd Dig Min) 31.1 C *34.19 <30.2 0.00 <2.5 Nerve Conduction Studies Anti Sensory Left/Right Comparison Stim Site L Lat (ms) R Lat (ms) L-R Lat (ms) L Amp ( V) R Amp ( V) L-R Amp (%) Site1 Site2 L Tobi (m/s) R Tobi (m/s) L-R Tobi (m/s) Radial Anti Sensory (Base 1st Digit) 32.1 C Wrist *3.1 2.5 0.6 14.1 7.7 45.4 Wrist Base 1st Digit Site 2 3.1 2.4 0.7 17.5 6.9 60.6 Motor Left/Right Comparison Stim Site L Lat (ms) R Lat (ms) L-R Lat (ms) L Amp (mV) R Amp (mV) L-R Amp (%) Site1 Site2 L Tobi (m/s) R Tobi (m/s) L-R Tobi (m/s) Median Motor (Abd Poll Brev) 30.1 C Wrist *4.8 4.2 0.6 *4.7 *3.6 23.4 Elbow Wrist *45 51 6 Elbow 10.4 9.1 1.3 4.2 3.4 19.0 Ulnar Motor (Abd Dig Minimi) 31.9 C Wrist 3.6 3.1 0.5 3.6 7.2 *50.0 B Elbow Wrist *49 56 7 B Elbow 8.0 7.1 0.9 3.5 5.8 39.7 A Elbow B Elbow 40 42 2 A Elbow 10.5 9.5 1.0 3.1 5.0 38.0 Comparison Left/Right Comparison Stim Site L Lat (ms) R Lat (ms) L-R Lat (ms) L Amp ( V) R Amp ( V) L-R Amp (%) Median/Ulnar Palm Comparison (Wrist - 8cm) 32.3 C Median Palm *2.5 *2.9 0.4 66.7 10.6 84.1 Ulnar Palm Motor Inching Left/Right Comparison Stim Site L Lat (ms) R Lat (ms) L-R Lat (ms) L Amp (mV) R Amp (mV) L-R Amp (%) Site1 Site2 L Tobi (m/s) R Tobi (m/s) L-R Tobi (m/s) Ulnar Motor Inching (Abd Dig Minimi) 32.5 C -2 cm 8.1 6.6 1.5 2.3 3.3 30.3 -1 cm -2 cm -1 cm 8.1 7.6 0.5 3.0 2.7 10.0 Elbow -1 cm Elbow 10.3 9.2 1.1 2.1 4.8 56.3 +1 cm Elbow +1 cm 10.6 9.8 0.8 2.7 5.1 47.1 +2 cm +1 cm +2 cm 11.0 10.4 0.6 2.6 5.0 48.0 NCV Findings: Evaluation of the left median motor nerve showed prolonged distal onset latency (4.8 ms), reduced amplitude (4.7 mV), and decreased conduction velocity (Elbow-Wrist, 45 m/s). The right median motor nerve showed reduced amplitude (3.6 mV). The left ulnar motor nerve showed decreased conduction velocity (B Elbow-Wrist, 49 m/s). The left radial sensory nerve showed prolonged distal peak latency (3.1 ms). The left median/ulnar (palm) comparison and the right median/ulnar (palm) comparison nerves showed no response (Ulnar Palm) and prolonged distal peak latency (L2.5, R2.9 ms). All remaining nerves (as indicated in the following tables) were within normal limits. Left vs. Right side comparison data for the ulnar motor nerve indicates abnormal L-R amplitude difference (50.0 %). All remaining left vs. right side differences were within normal limits. Impression: 1. 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 Bilateral ulnar neuropathy at the elbow 3. Absent ulnar sensory potentials at Guyon s canal. This can be seen with local compression or reflect the elbow entrapments. Kenny Bishop MD Waveforms: Kenny Bishop MD NEUROLOGY ORDERABLE S Care Teams Clinical Studies Specialist Relationship Specialty Start Date End Date Arnel Gonzalez DO [address] [facility] [address] [address] [place] [address] PCP - General 01/03/21
--- OUTSIDE RECORDS SUMMARY | 2024-06-14 12:21 | XMS_ITS | Continuity of Care Document ---
Author Organization [facility] Address [address] [facility] [address] [place] [address] Phone Care Team Providers Care Pharmaceutical Detailer Name Role Phone Zaheer Tom Unavailable Unavailable [...] Diagnoses Date Provider Providers Copied on Encounter [facility], [address], [place], [place], [id number], [place] tel:[phone] [facility] No Information 0 Vaishali Schwab. [facility] [address], [address], [place]. tel:[phone] Referring Provider: Zaheer evans, [address] [address], [place], [address]. tel:[phone] [facility], [address], [place], [place], [id number], [place] tel:[phone] [facility] No Information 3-201 0 Krishnasamy Zaheer. [address] [place], [place] [address]ate [place] [address], [place], [place], [facility], [place]. tel:[phone] [facility], [address], [place], [place], [id number], [place] tel:[phone] [facility] No Information 200 [address] [employer]. [address] [facility], [address], [place], [place], [id number], [place]. tel:[phone] Referring Provider: Zaheer evans, [address] [place], [place] [address]ate [facility] [address], [place], [place], [facility]. tel:[phone] sulting Provider: Leif Pineda, [address] [place] [address], [place], [place], [facility]. tel:[phone] [facility], [address] [place] [address] [address], [place], [place], [id number], [place] tel:[phone] [facility] No Information 9 Krishnasamy Zaheer. [address] [place], [place] [address]ate [facility] 102, [place], [place], [facility], [place]. tel:[phone] Referring Provider: Zaheer evans, [address] [place], [place] [address]ate [facility] 102, [place], [place], [facility]. tel:[phone] [facility], [address] [place] [address] [address], [place], [place], [id number], [place] tel:[phone] [facility] [place] No Information 200 9 Krishnasamy Zaheer. [address] [place], [place] [address]ate [facility] 102, [place], [place], [facility], [place]. tel:[phone] [facility], [address], [place], [place], [id number], [place] tel:[phone] [facility] No Information 200 7 Juan Daniel Rios. [address] [facility], [address], [place], [place], [id number], [place]. tel:[phone] Family History Family Member Type Diagnosis Age At Onset No Information Payers Payer name Insurance type Covered democrat ID Authoriza tion(s) [place] [id number] Social History Type Description Quantity Date Captured [...]
--- OUTSIDE RECORDS SUMMARY | 2024-06-14 12:21 | XMS_ITS | Clinical Summary ---
Author Organization [facility] Address [address] [place] [address] Care Team Providers Care Processing Archivist Name Role Phone Arnel Gonzalez MD Primary Care Provider [phone] Allergies Active Allergy Reactions Criticality Noted Date [...] a day 810 capsule 9 10/12/2023 Active Immunizations Name Administration Dates Next Due Fluzone [...] on file Legal Sex Male 12:11 PM AUTO TECH Gender Identity Not on file Sexual Orientation Not on file Last Filed Vital Signs Vital Sign Reading Time Taken Comments Blood Pressure 138/67 10/12/2023 3:33 PM CDT Pulse 85 10/12/2023 3:33 PM CDT Temperature 37.1 C (98.7 F) 10/12/2023 3:33 PM CDT Respiratory Rate 18 06/22/2023 12:59 PM AUTO TECH Oxygen Saturation 96% 10/12/2023 3:33 PM CDT [...] Hemoglobin A1C 12/16/2022 06/18/2022 COVID-19 Vaccine ( season) 2024 02/24/2022, 03/11/2021, 07/23/2020, Additional history exists Influenza Adult (#1) 2024 03/11/2023, 02/24/2022, 02/27/2021, Additional history exists PHQ-2 (Physician [place]) 05/03/2024 10/12/2023 Lipid Panel 06/16/2024 06/16/2023 Zoster Vaccines Completed 05/07/2021, 02/18/2021 Meningococcal B Vaccine Aged Out No l onger eligible based on patient's age to complete this topic Meningococcal Vaccine Aged Out No jorge kelsi eligible based on patient's age to complete this topic RSV Immunizations Under 20 Months Aged Out No longer eligible based on patient's age to complete this topic Insurance [facility] Care Teams Processing Archivist Relationship Specialty Start Date End Date Arnel Gonzalez MD [address] [place] [address] PCP - General INTERNAL MEDICINE 06/22/23
--- OUTSIDE RECORDS SUMMARY | 2024-06-14 12:21 | XMS_ITS | Clinical Summary ---
Author Organization [facility] Address [address] [place] [address] Phone Care Team Providers Care Civil Defense Director Name Role Phone Arnel Gonzalez DO Primary Care Provider [phone] Allergies Active Allergy Reactions Criticality Noted Date [...] 300 MG tablet 04/14/2020 Active Droplet Pen [place] 31G X 5 MM misc 07/28/2020 Active [...] 12/22/2021 Active ergocalciferol (VITAMIN D2) 1.25 MG (31356 UT) capsule TAKE ONE CAPSULE BY MOUTH [...] diabetes mellitus with complication Coronary arteriosclerosis in [place] artery 01/29 Overview (03/06/2019): CAD (coronary artery disease) Coronary artery disease involving [place] coronary artery of [place] heart without angina pectoris Coronary atherosclerosis 01/29/2015 Overview (08/30/2020): CAD (coronary artery disease) Coronary artery disease involving [place] coronary artery of [place] heart without angina pectoris H/O: artificial heart [...] 84 11/17/2021 3:00 PM CDT Temperature 36.8 C (98.3 F) 11/17/2021 3:00 PM CDT Respiratory Rate - - Oxygen Saturation - [...] 03/03/2020, 02/01/2020, Additional history exists Care Teams Civil Defense Director Relationship Specialty Start Date End Date Arnel Gonzalez DO [address] [facility] [address] [place] [id number] PCP - General Internal Medicine 01/31/19
--- OUTSIDE RECORDS SUMMARY | 2024-06-14 12:21 | XMS_ITS | Clinical Summary ---
Author Organization [facility] Address [address] [place] [address] Care Team Providers Care Net Manager Name Role Phone Yfn Gill MD Unavailable Aguila Chris MD Unavailable [phone] Malcolm Castro MD Unavailable [phone] Neeraj La MD Unavailable [phone] Rafa Chavez DO Primary Care Provider [phone] Allergies Active Allergy Reactions Criticality Noted Date Comments Codeine Itching Medium 08/08/2013 Hydrocodone Nausea & Vomiting Low 01/22/2022 Tramadol Nausea & Vomiting,Na usea And Vomiting,Unknown Low 10/18/2017 severe Medications terazosin (HYTRIN) 10 mg capsule take 1 capsule by oral route every day at bedtime 0 0 3 Active omeprazole (PriLOSEC) 20 mg capsuleIndication s:Treatment of Non-Bleeding Gastric Disorder Take 1 capsule (20 mg total) by mouth every morning Active finasteride (PROSCAR) 5 mg tablet Take 1 tablet (5 mg total) by mouth daily 90 tablet 3 0 Active allopurinoL (ZYLOPRIM) 300 mg tabletIndications :prevention of acute gout attack Take 1 tablet (300 mg total) by mouth charging car operator before breakfast 0 Active alpha lipoic acid 600 mg tabletIndications :pain Take 1 tablet by mouth nightly Active Accu-Chek Mariel Plus test strp strip 2 Active Accu-Chek Softclix Lancets lancets 2 Active Droplet Pen Needle 31 gauge x 07/16 needle 2 Active multivitamin tabletIndications :Vitamin Deficiency Prevention Take 1 tablet by mouth every morning Active hydrOXYzine (ATARAX) 10 mg tabletIndications :anxiety Take 1 tablet (10 mg total) by mouth as needed 2 Active Accu-Chek Guide Glucose Meter misc 2 Active ergocalciferol (VITAMIN D) 50,000 unit capsuleIndication s:Vitamin D Deficiency Take 1 capsule (50,000 Units total) by mouth once a week Wednesday Active aspirin 81 mg enteric coated tablet Take 1 tablet (81 mg total) by mouth daily 30 tablet 3 Active amLODIPine (NORVASC) 10 mg tablet Take 1 tablet (10 mg total) by mouth daily 3 Active fluticasone propionate (FLONASE) 50 mcg/actuation nasal spray 3 Active hydrALAZINE (APRESOLINE) 50 mg tablet TAKE 1 TABLET TWICE DAILY 180 tablet 10 3 Active lidocaine (LIDODERM) 5 % 3 Active bumetanide (BUMEX) 2 mg tabletIndications :Chronic heart failure with preserved ejection fraction (CMS/HCC) (HCC) TAKE 1 TABLET TWICE DAILY 180 tablet 2 4 Active calcitRIOL (ROCALTROL) 0.25 mcg capsule Take 1 capsule (0.25 mcg total) by mouth daily 4 Active gabapentin (NEURONTIN) 300 mg capsule Take 1 capsule (300 mg total) by mouth 3 (three) times a day 4 Active hydroCHLOROthiazi de (HYDRODIURIL) 25 mg tablet Take 1 tablet (25 mg total) by mouth daily 4 Active sacubitriL-valsar almanza (ENTRESTO) 49-51 mg tabletIndications :chronic heart failure Take 1 tablet by mouth 2 (two) times a day 180 tablet 3 4 Active potassium chloride ER (KLOR-CON) 20 mEq CR tablet Take 1 tablet (20 mEq total) by mouth with evening meal 7 tablet 1 4 Active amitriptyline (ELAVIL) 25 mg tabletIndications :Type 2 diabetes mellitus with stage 3 chronic kidney disease, with long-term current use of insulin, unspecified whether stage 3a or 3b CKD (HCC) TAKE 1 TABLET BY MOUTH EVERY DAY AT NIGHT 30 tablet 2 4 Active HumuLIN R U-500 500 unit/mL (3 mL) CONCENTRATED pen for injectionIndicati ons:DM 2 Take two times a day. aB and aD up to 340 unit daily as instructed per SS. 60 mL 3 4 Active clopidogreL (PLAVIX) 75 mg tablet TAKE 1 TABLET EVERY DAY 90 tablet 2 4 Active semaglutide (Ozempic) 0.25 mg or 0.5 mg (2 mg/3 mL) pen injector injectionIndicati ons:Type 2 diabetes mellitus with stage 3 chronic kidney disease, with long-term current use of insulin, unspecified whether stage 3a or 3b CKD (HCC) INJECT 0.5MG UNDER THE SKIN ONE TIME WEEKLY 9 mL 3 4 Active dapagliflozin propanediol (FARXIGA) 10 mg tablet 1 tablet (10 mg total) Active metoprolol XL (TOPROL-XL) 50 mg extended release tablet Take 1 tablet (50 mg total) by mouth daily 90 tablet 6 5 Active atorvastatin (LIPITOR) 40 mg tablet Take 1 tablet (40 mg total) by mouth nightly 90 tablet 6 5 Active vericiguat (Verquvo) 10 mg tablet Take 1 tablet (10 mg total) by mouth daily 90 tablet 6 5 Active ammonium lactate (LAC-HYDRIN) 12 % lotion APPLY TO FOOT CALLUSES DAILY NEEDED Active clobetasoL (TEMOVATE) 0.05 % external solution APPLY TOPICALLY TO THE SCALP TWICE DAILY NEEDED FOR FLAKING OR ITCHING Active pimecrolimus (ELIDEL) 1 % cream APPLY TO RASH ON FACE AND EARS TWICE DAILY NEEDED FOR FLARES Active doxycycline 100 mg capsule Take 1 tablet/capsule (100 mg total) by mouth 2 (two) times a day Active Active Problems Problem Noted Date Diagnosed Date Cardiovascular stress test abnormal 02/24/2024 Benign paroxysmal positional vertigo of left ear 09/28/2023 Cervical myelopathy with cervical radiculopathy 06/30/2022 Cervical spondylosis with myelopathy 06/09/2022 Overview (06/09/2022): Added automatically from request for surgery [id number] Carotid stenosis, right 01/07/2022 Overview (01/07/2022): Added automatically from request for surgery [id number] Assessment & Plan (04/19/2023 1:00 PM LOCAL TELEPHONE OPERATOR): Status post TCAR. Stent patent. Continue anti-platelet therapy follow-up 6 months. Assessment & Plan (03/12/2022 5:16 PM LOCAL TELEPHONE OPERATOR): Impression: Patient is status post right TCAR. [...] (02/05/2020): Added automatically from request for surgery [id number] Hx of colonic polyps 10/10/2019 Overview (10/10/2019): Added automatically from request for surgery [id number] History of colon polyps 07/10/2019 Overview (07/10/2019): Added automatically from request for surgery [id number] Hypertension associated with diabetes 06/29/2019 Assessment & Plan (06/08/2024 2:36 PM LOCAL TELEPHONE OPERATOR): Chronic problem, Controlled on metoprolol, Entresto, HCTZ, bumetanide, hydralazine, amlodipine. No changes. Assessment & Plan (04/19/2023 1:00 PM LOCAL TELEPHONE OPERATOR): Hypertension chronic controlled. Continue current medical management [...] actual BMI) Coronary artery disease invo lving [place] coronary artery of [place] heart without angina pectoris 05/06/2015 Overview (08/07/2016): Coronary artery disease involving [place] coronary artery of [place] heart without angina pectoris Assessment & Plan (01/07/2022 3:00 PM CDT): Stable. Continue medical therapy. Mixed diabetic hyperlipidemi a associated with type 2 diabetes mellitus ([facility]) 05/06/2015 Overview (08/07/2016): Type 2 diabetes mellitus with complication Assessment & Plan (06/08/2024 2:36 PM LOCAL TELEPHONE OPERATOR): Chronic problem. On statin therapy, no changes. Assessment & Plan (04/19/2023 1:00 PM LOCAL TELEPHONE OPERATOR): Hyperlipidemia chronic and controlled. Continue current medical [...] diabetes mellitus with complication Assessment & Plan (06/08/2024 2:37 PM LOCAL TELEPHONE OPERATOR): Chronic problem, improving but not at goal. Discussed increasing Ozempic to 1 mg to see if he tolerates it, he'll try 2 injections of 0.5 mg for a couple weeks. If does ok let us know and I can send in 1 mg pen. asks about trying Mounjaro but he's tolerating Ozempic well and has CAD indications so will continue same at this time. Continue Farxiga and same U500 sliding scale. Email in if any low sugars so we can adjust his insulin if needed. Update MA/cr. He'll come next visit w/o compression stockings so we can do foot exam. Assessment & Plan (09/22/2023 11:01 AM CDT): [...] to his insulin regimen Disorder of aorta ([facility]) 10/20/2013 Aortic valve stenosis 10/19/2013 Resolved Problems [...] Encounters Date Type Department Care Team Description 06/13/2024 Orders Only [facility] Diabetes [facility] Endocrinology [facility] [place] [address] ProviderNelson MD 06/08/2024 1:18 PM LOCAL TELEPHONE OPERATOR - 06/08/2024 11:59 PM LOCAL TELEPHONE OPERATOR Hospital Encounter [facility] [id number] [place] [address] Type 2 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 disease, with long-term current use of insulin (HCC) Discharge Disposition: Discharge to home or self care 06/08/2024 1:15 PM LOCAL TELEPHONE OPERATOR Office Visit [facility] [address] [place] [address] [address] [address] Terra Joiner PA Type 2 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 disease, with long-term current use of insulin (HCC) (Primary Dx); Hypertension associated with diabetes (HCC); Mixed diabetic hyperlipidemia associated with type 2 diabetes mellitus (CMS/HCC) (HCC) 06/02/2024 1:00 PM LOCAL TELEPHONE OPERATOR Office Visit [facility] Cardiology [address] [place] [address] [place] [phone] Malu Soolmon NP Edema, lower extremity (Primary Dx); Chronic combined systolic and diastolic CHF (congestive heart failure) (CMS/HCC) (HCC); Stage 3b chronic kidney disease (HCC) 06/01/2024 Telephone [facility] Cardiology [address] [place] [address] [address] [place] [phone] Nabil Harding MD 05/12/2024 Documentation [facility] Cardiology [address] [place] [address] [place] [phone] Shila Bowers MA 05/10/2024 8:30 AM LOCAL TELEPHONE OPERATOR Office Visit [facility] Cardiology [address] [place] [address] [place] [phone] Nabil Harding MD Coronary artery disease involving [place] coronary artery of [place] heart without angina pectoris (Primary Dx); S/P CABG x 2; Cardiomyopathy, ischemic; S/P angioplasty with stent; Chronic systolic congestive heart failure (CMS/HCC) ([facility]); S/P aortic valve replacement with bioprosthetic valve; Hypertension associated with diabetes ([facility]); Stage 3b chronic kidney disease ([facility]); Morbid obesity with BMI of 40.0-44.9, adult ([facility]); MARY on CPAP 05/10/2024 Telephone [facility] Cardiology [address] [place] [address] [address] [place] [phone] Nabil Harding MD Medication Problem 04/17/2024 9:30 AM LOCAL TELEPHONE OPERATOR - 04/17/2024 11:30 AM LOCAL TELEPHONE OPERATOR Surgery [facility] [address] [place] [address] Nabil Harding MD PCI SHAYY MAJOR CORONARY [id number] - [id number] 04/17/2024 6:10 AM LOCAL TELEPHONE OPERATOR - 04/17/2024 3:36 PM LOCAL TELEPHONE OPERATOR Hospital Encounter [facility] [id number] [place] [address] Nabil Harding MD Coronary artery disease involving [place] coronary artery of [place] heart without angina pectoris Discharge Disposition: Discharge to home or self care 04/17/2024 Telephone [facility] Cardiology [address] [place] [address] [place] [phone] Nabil Harding MD 04/13/2024 Telephone [facility] Cardiology [address] [place] [address] [place] [phone] Nabil Harding MD 04/10/2024 Telephone [facility] Cardiology [address] [place] [address] [place] [phone] Nabil Harding MD 04/05/2024 3:00 PM LOCAL TELEPHONE OPERATOR Ancillary Procedure [facility] Cardiology [address] [place] [address] [place] [phone] Chronic heart failure with preserved ejection fraction (CMS/HCC) ([facility]); S/P aortic valve replacement with bioprosthetic valve 03/27/2024 10:30 AM LOCAL TELEPHONE OPERATOR - 03/27/2024 12:00 PM LOCAL TELEPHONE OPERATOR Surgery [facility] [address] [place] [address] Nabil Harding MD RIGHT LEFT HEART CATHETERIZATION WITH CORONARY ANGIOGRAPHY GRAFT AND WITH OR WITHOUT LEFT VENTRICULOGRAPHY [id number] 03/27/2024 6:31 AM LOCAL TELEPHONE OPERATOR - 03/27/2024 3:17 PM LOCAL TELEPHONE OPERATOR Hospital Encounter [facility] [address] [place] [address] Nabil Harding MD Coronary artery disease involving [place] coronary artery of [place] heart without angina pectoris; Cardiovascular stress test abnormal Discharge Disposition: Discharge to home or self care 03/27/2024 Telephone [facility] [address] [place] [address] Nabil Harding MD lab order 03/19/2024 2:54 AM LOCAL TELEPHONE OPERATOR - 03/19/2024 6:44 AM [facility] Emergency [facility] Emergency Department [address] [place] [phone] Reese Aguillon MD Generalized weakness (Primary Dx); Viral URI Discharge Disposition: Discharge to home or self care from Last 3 Months Immunizations Name Administration [...] eye blindness CHF (congestive heart failur e) ([facility]) ([facility]) Pneumonia 10/21/2021 hospitalized at [place] with PNA, JUANITA and CHF Cancer ([facility]) ([facility]) h/o bladd er cancer, surgical intervention only CKD (chronic kidney disease) , stage III ([facility]) Numbness and tingling fingers an d hands, [...] Maged Aguilar Cancer COD Cancer Mother Cyndie Cicio Chronic Pain Mother Cyndie Cicio Diabetes Mother Cyndie Cicio Heart attack Mother Cyndie Cicio Heart disease Mother Cyndie Cicio Hypertension Mother Cyndie Cicio Chronic Pain Other Cancer Sister 1 Veda Diabetes Sister 1 Veda Lung cancer Sister 2 Cancer, lung; C ause of : Cancer, lung Relation Name Status Comments Brother Addi Father Maged Aguilar (Age 59) Mother Cyndie gAuilar Other Sister 1 Veda (Age 70) Sister 2 Social History Tobacco Use Types Packs/Day Years Used Date Smoking Tobacco: Former Cigarettes Q uit: 05/03/1986 Passive Smoke Exposure: Never Smokeless Tobacco: Never Tobacco Cessation:Counseling Given: Not Answered Alcohol Use Standard Drinks/Week Comments No 0 [...] on file Legal Sex Male 1:58 AM LOCAL TELEPHONE OPERATOR Gender Identity Not on file Sexual Orientation Not on file Obstetrics History Last Filed Vital Signs Vital Sign Reading Time Taken Comments Blood Pressure 136/62 06/08/2024 1:27 PM LOCAL TELEPHONE OPERATOR Pulse 79 06/08/2024 1:27 PM LOCAL TELEPHONE OPERATOR Temperature 36.7 C (98 F) 04/17/2024 7:04 AM LOCAL TELEPHONE OPERATOR Respiratory Rate 18 06/08/2024 1:27 PM LOCAL TELEPHONE OPERATOR Oxygen Saturation 95% 06/02/2024 1:00 PM LOCAL TELEPHONE OPERATOR Inhaled Oxygen Concentration - - Weight 127.3 kg (280 lb 8.6 oz) 06/08/2024 1:27 PM LOCAL TELEPHONE OPERATOR Height 172.7 cm (5' 8 ) 06/08/2024 1:27 PM LOCAL TELEPHONE OPERATOR Body Mass Index 42.66 06/08/2024 1:27 PM LOCAL TELEPHONE OPERATOR Plan of Treatment Health Maintenance Due Date Last Done Comments Depression Screening 1945 Dilated Eye Exam 1944 Foot Exam 1944 DTaP/Tdap/Td Vaccine (1 - Tdap) 11/26/1955 Hepatitis B Screening 1962 Abdominal Aortic Aneurysm (A AA) Screen 2009 Well Visit 65+ 2009 Pneumococcal vaccine 65+ (2 of 2 - PPSV23 or PCV20) 03/28/2017 01/31/2017 Covid-19 Vaccine (5 - 2023-2 5 season) 2024 02/24/2022, 03/11/2021, 07/23/2020, Additional history exists Influenza Vaccine (#1) 2024 3, 03/11/2023, 02/24/2022, Additional history exists Hemoglobin A1C 12/06/2024 06/08/2024, 09/01, 06/18/2022, Additional history exists Fall Risk Assessment 04/17/2025 04/17/2024 eGFR 05/31/2025 05/31/2024, 03/03, 09/15/2023, Additional history exists Albumin Creatinine Ratio, Urine 06/08/2025 Lipid Panel 06/08/2025 06/08/2024, 06/03, 06/30/2022, Additional history exists Colon Cancer Screening-CT Colonography Discontinued 05/18/2014 Colon [...] Chronic Care Management No change(04/14 11:08 AM LOCAL TELEPHONE OPERATOR) No Pool Frey, RN Note: Problem: Chronic Pain Goals: 1. Minimize further functional decline 2. Maximize quality of life 3. Control pain Strategies: - Activity/exercise program recommendation - Conservative stepwise pain medicine strategy with multi-disciplinary approach - Recommend healthy lifestyle strategies and compensatory methods as needed Medical Devices Implanted Type Area Laundry Machine Tender Device Identifier Shelf Expiration Date Model / Serial / Lot Total Knee Left: Knee [employer] Resolute Sherine 3mm 2.1-2.7fr 12mm 140cm Rapid Exchange Radiopaque [id number] - [id number] Implanted:Qty: 1 on 09/03/2021 by Bindu Goins MD at [facility] [employer] 06/11/2024 [id number] / / Med[employer]onic Inc Resolute [place] 3.5mm 2.1-2.7fr 15mm 140cm Rapid Exchange [id number] - [id number] Implanted:Qty: 1 on 09/03/2021 by Bindu Goins MD at [facility] [employer] 04/04/2024 [id number] / / Angio-Seal Vip 6fr Closere Device [id number] - [id number] Implanted:Qty: 1 on 09/03/2021 by Bindu Goins MD at [facility] [employer] 06/02/2022 [id number] / / [employer] Enroute Uber Flex 8mm .065in 40mm 57cm Delivery System Angle Tip [id number] - [id number] Implanted:Qty: 1 on 01/29/2022 by Neeraj La MD at [facility] Right: Carotid [employer] 08/30/2024 [id number] / / [id number] [employer] 4.5mm 16mm Fix Screw Bone [id number] - [id number] Implanted:Qty: 3 on 06/30/2022 by Fredy Nguyen MD at [facility] N/A: Spine Cervical MATILDE [employer] [id number] / / Musculoskeletal Transplant 12.9s82w6tu Frozen Spine 7d Lordotic Trapezoid Spacer Allograft 151753 - [id number] - [id number] Implanted:Qty: 1 on 06/30/2022 by Fredy Nguyen MD at [facility] N/A: Spine Cervical Musculoskeletal Transplant [id number] 03/25/2025 [id number] / [id number] / Musculoskeletal Transplant 12.3j73x5gu Frozen Spine 7d Lordotic Trapezoid Spacer Allograft [id number] - [id number] - [id number] Implanted:Qty: 1 on 06/30/2022 by Fredy Nguyen MD at [facility] N/A: Spine Cervical Musculoskeletal Transplant [id number] 01/03/2025 [id number] / [id number] / Musculoskeletal Transplant 12.2u48d0mz Frozen Spine 7d Lordotic Trapezoid Spacer Allograft 296731 - [id number] - [id number] Implanted:Qty: 1 on 06/30/2022 by Fredy Nguyen MD at [facility] N/A: Spine Cervical Musculoskeletal Transplant [id number] 04/26/2026 [id number] / [id number] / [employer] C-Ervin Maxan 51mm Level 3 Fix Spine Cervical Anterior Plate Bone [id number] - [id number] Implanted:Qty: 1 on 06/30/2022 by Fredy Nguyen MD at [facility] N/A: Spine Cervical [employer] [id number] / / [employer] 4mm 16mm Fix Screw Bone [id number] - [id number] Implanted:Qty: 5 on 06/30/2022 by Fredy Nguyen MD at [facility] N/A: Spine Cervical [employer] [id number] / / Access Closure Inc Device 10ml 5fr Closure Mynx Control 2 Mode Balloon Catheter [id number] - [id number] Implanted:Qty: 1 on 03/27/2024 by Nabil Harding MD at [facility] [employer] 01/18/2026 [id number] / / [id number] [facility] Vasc Surgery 4.0 X 18mm [place] Rx Coronary Stent [id number] - [id number] Implanted:Qty: 1 on 04/17/2024 by Nabil Harding MD at [facility] [employer] Card Vasc Surgery 12/26/2026 [id number] / / [id number] Access [employer] Inc Mynx Control 6-7fr 2 Mode Balloon Catheter Sealant Lock Syringe [id number] - [id number] Implanted:Qty: 1 on 04/17/2024 by Nabil Harding MD at [facility] [employer] 01/05/2026 [id number] / / [id number] Procedures Procedure Name Priority Date/Time Associated Diagnosis Comments POCT GLUCOSE Routine 06/08/2024 1:18 PM LOCAL TELEPHONE OPERATOR Type 2 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 disease, with long-term current use of insulin (HCC) POCT HEMOGLOBIN A1C Routine 06/08/2024 1 :18 PM LOCAL TELEPHONE OPERATOR Type 2 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 disease, with long-term current use of insulin (HCC) ALBUMIN CREATININE RATIO, URINE Routine 06/08/2024 1:18 PM LOCAL TELEPHONE OPERATOR Type 2 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 disease, with long-term current use of insulin (HCC) POCT LIPID PANEL Routine 06/08/2024 1:18 AM LOCAL TELEPHONE OPERATOR Type 2 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 disease, with long-term current use of insulin (HCC) HM CREATININE Routine 05/31/2024 12:52 PM LOCAL TELEPHONE OPERATOR COMPREHENSIVE METABOLIC PANEL Routine 05/31/2024 POCT GLUCOSE DEVICE Routine 04/17/2024 1 0:45 AM LOCAL TELEPHONE OPERATOR PCI SHAYY STENT ADDTN'L COR BRANCH (+) [id number] Routine 04/17/2024 10:23 AM LOCAL TELEPHONE OPERATOR Coronary artery disease involving [place] coronary artery of [place] heart without angina pectoris PERCUTANEOUS CORONARY LITHROTRIPSY W/ PCI (+) [id number] Routine 04/17/2024 10:23 AM LOCAL TELEPHONE OPERATOR Coronary artery disease involving [place] coronary artery of [place] heart without angina pectoris CORONARY OCT, 1ST VESSEL Routine 04/17/2024 10:23 AM LOCAL TELEPHONE OPERATOR Coronary artery disease involving [place] coronary artery of [place] heart without angina pectoris VASCULAR ACCESS US GUIDANCE Routine 04/17/2024 10:23 AM LOCAL TELEPHONE OPERATOR Coronary artery disease involving [place] coronary artery of [place] heart without angina pectoris SHAYY MAJOR CORONARY Routine 04/17/2024 10 :23 AM LOCAL TELEPHONE OPERATOR Coronary artery disease involving [place] coronary artery of [place] heart without angina pectoris MODERATE SEDATION FIRST 15MIN 5+ YEAR 98465 04/17/2024 9:00 AM LOCAL TELEPHONE OPERATOR Coronary artery disease involving [place] coronary artery of [place] heart without angina pectoris POCT GLUCOSE DEVICE Routine 04/17/2024 8 :27 AM LOCAL TELEPHONE OPERATOR TRANSTHORACIC ECHO (TTE) COMPLETE W DOPPLER/CF WO CONTRAST Routine 04/05/2024 4:20 PM LOCAL TELEPHONE OPERATOR Chronic heart failure with preserved ejection fraction (CMS/HCC) ([facility]) S/P aortic valve replacement with bioprosthetic valve POCT GLUCOSE DEVICE Routine 03/27/2024 1 2:08 PM LOCAL TELEPHONE OPERATOR CORONARY FLOW VELOCITY (CFR) / INSTATANEOUS FLOW VELOCITY (IFR), 1ST VESSEL Routine 03/27/2024 11:45 AM LOCAL TELEPHONE OPERATOR Coronary artery disease involving [place] coronary artery of [place] heart without angina pectoris Cardiovascular stress test abnormal RIGHT LEFT HEART CATHETERIZATION CORONARY GRAFT WITH WITHOUT LEFT VENTRICULOGRAPHY ANGIOGRAM Routine 03/27/2024 11:45 AM LOCAL TELEPHONE OPERATOR Coronary artery disease involving [place] coronary artery of [place] heart without angina pectoris Cardiovascular stress test abnormal VASCULAR ACCESS US GUIDANCE Routine 03/27/2024 11:45 AM LOCAL TELEPHONE OPERATOR Coronary artery disease involving [place] coronary artery of [place] heart without angina pectoris Cardiovascular stress test abnormal MODERATE SEDATION FIRST 15MIN 5+ YEAR [address]1774 03/27/2024 10:46 AM LOCAL TELEPHONE OPERATOR Coronary artery disease involving [place] coronary artery of [place] heart without angina pectoris Cardiovascular stress test abnormal POCT GLUCOSE DEVICE Routine 03/27/2024 7 :13 AM LOCAL TELEPHONE OPERATOR XR CHEST 1 VIEW ED 03/19/2024 3:19 AM LOCAL TELEPHONE OPERATOR PRO B-TYPE NATRIURETIC PEPTIDE Add-On 03/19/2024 2:21 AM LOCAL TELEPHONE OPERATOR EGFR STAT 03/19/2024 2:21 AM LOCAL TELEPHONE OPERATOR DIFFERENTIAL AUTO STAT 03/19/2024 2:2 1 AM LOCAL TELEPHONE OPERATOR COMPREHENSIVE METABOLIC PANEL STAT 03/19/2024 2:21 AM LOCAL TELEPHONE OPERATOR CBC WITH AUTO DIFFERENTIAL STAT 03/19/2024 2:21 AM LOCAL TELEPHONE OPERATOR RESPIRATORY PATHOGEN PANEL Routine 03/19/2024 2:21 AM LOCAL TELEPHONE OPERATOR HEPATITIS C AB REFLEX RNA QUANT PCR Routine 06/14/2019 3:47 PM LOCAL TELEPHONE OPERATOR COLONOSCOPY REPORT 05/18/2014 from Last 3 Months or Most Recently Relevant to Health Maintenance Results * (ABNORMAL) POCT hemoglobin A1c (06/08/2024 1:18 PM LOCAL TELEPHONE OPERATOR) Hemoglobin A1C, POC 8.3 4.0 - 5.6 % Capillary blood 06/08/2024 1 :18 PM LOCAL TELEPHONE OPERATOR Terra CRUZ POINT OF CARE TEST ORDE RABLES Final Result * (ABNORMAL) Albumin Creatinine Ratio, Urine (06/08/2024 1:18 PM LOCAL TELEPHONE OPERATOR) Albumin Ur 68.0 mg/L Comment: Interpretive Data No reference range established. Current interpretive data was last revised 2018. Creatinine Ur 32.5 mg/dL JOSE MIGUEL BOWERS Comment: Interpretive Data No reference range established. Current interpretive data was last revised 2018. Albumin Creatinine Ratio, Ur 209(H) 1 - 29 mg/g JOSE MIGUEL BOWERS Urine 06/08/2024 1:18 PM LOCAL TELEPHONE OPERATOR 06/08/2024 7:31 PM LOCAL TELEPHONE OPERATOR Terra CRUZ LAB URINE ORDERABLES Fi nal Result JOSE MIGUEL BOWERS [address] [address] Department [place] [address] * (ABNORMAL) POCT glucose (06/08/2024 1:18 PM LOCAL TELEPHONE OPERATOR) Glucose Blood, POC 204 mg/dL Comment:PPG 2.5 Hrs Blood 06/08/2024 1:18 PM LOCAL TELEPHONE OPERATOR Result [facility] Terra CRUZ POINT OF CARE TEST ORDE RABAMBER Final Result * (ABNORMAL) POCT lipid panel (06/08/2024 1:18 AM LOCAL TELEPHONE OPERATOR) Cholesterol, POC 154 mg/dL HDL, POC 25 mg/dL Triglycerides, POC 271 mg/dL LDL Cholesterol POC 75 mg/dL Chol/HDL Ratio, POC 6.2 Non-HDL Cholesterol, POC 129 mg/dL Cholesterol Total, POC 154 mg/dL Capillary blood 06/08/2024 1 :18 AM LOCAL TELEPHONE OPERATOR Result [facility] Terra CRUZ POINT OF CARE TEST ORDE RABLES Final Result * (ABNORMAL) HM CREATININE (05/31/2024 12:52 PM LOCAL TELEPHONE OPERATOR) SCRIBED Creatinine 2.16(A) 0.7 - 1.3 mg/dl EXTERNAL LAB SCRIBED eGFR in NonAfrican Beninese 30 >59 - NA EXTERNAL LAB Blood 05/31/2024 12:5 2 PM LOCAL TELEPHONE OPERATOR Result [facility] Historical [facility] Edited Result - Final EXTERNAL LAB * Comprehensive metabolic panel (05/31/2024) Blood Impressions EXTERNAL LAB - 05/31/2024 Lab ordered in error Result [facility] Historical Provider LAB BLOOD ORDERABLES Edit ed Result - Final EXTERNAL LAB * POCT glucose (04/17/2024 10:45 AM LOCAL TELEPHONE OPERATOR) Glucose, POC 133 70 - 199 mg/dL Blood 04/17/2024 10:4 5 AM LOCAL TELEPHONE OPERATOR 04/17/2024 10:45 AM LOCAL TELEPHONE OPERATOR Result [facility] Nabil Harding MD LAB POCT ORDERABLES - [place]ICE [place] [address] [address] Department [place] [address] * SHAYY MAJOR CORONARY, VASCULAR ACCESS US GUIDANCE, CORONARY OCT, 1ST VESSEL, PERCUTANEOUS CORONARY LITHROTRIPSY W/ PCI (+) [id number], PCI SHAYY STENT ADDTN'L COR BRANCH (+) [id number] (04/17/2024 10:23 AM LOCAL TELEPHONE OPERATOR) Anatomical Region Laterality Modality X-Ray Angiograph y Addenda Addendum by Nabil Harding MD on 04/17/2024 10:55 AM LOCAL TELEPHONE OPERATOR CARDIAC CATHETERIZATION AND INTERVENTION REPORT DATE OF PROCEDURE: 04/17/24 INDICATION FOR PROCEDURE: Planned PCI ostial-proximal LAD BRIEF CLINICAL HISTORY: Tamika [...] abnormal MPI with worsening LV systolic function. Recent pharmacological MPI from 02/15/2024 reportedly showed LVEF 33%; small, iana-re-trehnigk reversible defect in apical anterior and apical septal segments; fixed defect in basal inferior and mid inferior segments. Prior echo from 10/30/2022 reportedly showed LVEF 50-55%; normal-appearing aortic valve bioprosthesis with gradients within normal limits. On 03/27/2024, patient underwent cardiac catheterization/bypass graft angiography which showed about 50-60% stenosis ostial LAD (iFR 0.84); patent previously placed proximal-mid LAD stents; chronic total occlusion mid RCA; patent 2/2 bypass grafts (patent SVG to OM; patent SVG to RPDA with 30-50% diffuse stenosis in the mid segment). Due to CKD, PCI of ostial LAD was not performed at that time. He was brought back today for planned PCI of ostial-proximal LAD. Patient was prehydrated with normal saline. Benefits and risks of the procedure were discussed with the patient in depth, and informed consent was taken prior to the procedure. Risks of the procedure include but are not limited to vascular complications like groin hematoma, retroperitoneal bleed, vessel perforation; periprocedural NV, cardiac arrhythmias, stroke, contrast induced nephropathy, and . After discussing all the benefits, risks and [...] a 4.0 x 18 mm Medtronic sherine [place] zotarolimus eluting stent with good angiographic and IVUS results (proximal optimization into left main) Moderate sedation-CPT code 61475 and beyond Deployment of Mynx vascular closure device MODERATE SEDATION: Midazolam 1 mg , Fentanyl 25 mcg, start time 0927 stop time 1023, total direct kiuh-hb-vijy monitoring of conscious sedation 56 minutes (CPT 89109) TRAINED OBSERVER: Abisai Woods RN was trained observer for moderate sedation. ACCESS SITE: Right common femoral artery PROCEDURE: After obtaining informed consent, patient was brought to the center medical and lab director and prepped and draped in the usual sterile manner. Time-out and immediate reassessment of the patient was performed. After local anesthesia with lidocaine, right common femoral artery access was taken with micropuncture needle under ultrasound guidance followed by insertion of a 6 Burmese sheath. Selective left coronary angiogram was performed using 6 Burmese JL4 guide catheter. Estimated blood loss was minimal. All specimens removed. The angiographic and other findings, and details of intervention are given below. FINDINGS: LEFT MAIN CORONARY: Large caliber, relatively short vessel. Haziness seen in the distal segment which on IVUS showed calcification. LEFT ANTERIOR DESCENDING ARTERY: Medium to large caliber vessel. There is about 60-70% hazy, calcific stenosis at the ostium with abnormal IFR (iFR 0.84) from recent cardiac catheterization. Previously placed stents in the proximal-mid segment are patent with minimal lumen loss. The vessel tapers distally and reaches the LV apex diagonal branches are medium caliber vessel without significant focal stenosis LEFT CIRCUMFLEX ARTERY: Large caliber vessel, gives rise to small to medium caliber OM1 branch and medium caliber OM2 branch without significant focal stenosis. RIGHT CORONARY ARTERY: Not injected today. Known to be medium caliber vessel, chronic total occlusion in the mid segment LEFT VENTRICULOGRAM: Not performed HEMODYNAMIC ASSESSMENT: Opening pressure 125/57 mmHg, closing pressure 131/59 mmHg. INTERVENTION REPORT: Left main coronary artery ostium was selectively engaged using 6 Burmese JL4 guide catheter. Bivalirudin was used for procedural anticoagulation. Patient has been on dual antiplatelet therapy, today's dose of clopidogrel was given in the center medical and lab director. 0.014 luge wire was advanced and the stenosis at the ostium of the LAD was crossed. The guidewire was advanced in the distal LAD. IVUS was performed using a [employer] eye IVUS catheter. The reference diameter was 3.7 x 4.7 mm distally, and 3.9 x 4.4 mm proximally. Diffuse calcification was noted, especially in the proximal most part of the LAD into the ostium and distal left main. In light of this, we proceeded with intravascular lithotripsy. A 2nd 0.014 luge wire was advanced in the LCX the protect the ostium of the LCX. Next, intravascular lithotripsy was performed using a 4.0 x 12 mm shockwave IVUS balloon. Multiple cycles of lithotripsy were performed in the proximal LAD, ostial LAD and distal left main. Balloon was taken out angiogram showed good angiographic results with IVUS. A 2.5 x 15 mm noncompliant balloon was advanced on the LCX wire, and was positioned at the ostium of the left circumflex artery- jailed balloon to preserve the tabatha of the left circumflex artery. Next 4.0 x 18 mm Medtronic sherine [place] ZES was advanced to the target lesion with proximal part of the stent in the distal left main. The stent was deployed in the distal left main, ostial-proximal LAD at a maximum of 16 atmospheres. Postdilation was performed using a 4.0 x 15 mm noncompliant balloon at high inflation pressures. The LCX balloon was taken out and angiogram showed preserved flow in the LCX. After this, IVUS was performed which showed reasonable stent apposition in the ostial-proximal LAD. Final angiogram after removal of the guidewire showed good angiographic results with DAVID 3 flow, no angiographically visible dissection distal embolization. Hemostasis was achieved with successful deployment of Mynx vascular closure device. Patient tolerated procedure well without any immediate procedural complications. CONCLUSIONS: CAD-60-70% calcific stenosis ostial-proximal LAD (iFR 0.84); patent previously placed proximal-mid LAD stents; chronic total occlusion mid RCA from prior angiogram. Patent SVG to OM and SVG to RPDA from prior angiogram dated 03/27/2024. IFR/IVUS guided PCI-intravascular lithotripsy (shockwave IVL) distal left main, ostial-proximal LAD, followed by PTCA/stenting using a 4.0 x 18 mm Medtronic sherine [place] ZES will good IVUS and angiographic results. PLAN/RECOMMENDATIONS: Continue dual antiplatelet therapy, statin; and guideline directed medical treatment for CHFrEF. Outpatient Cardiology follow-up. Voice recognition software was used to complete this document, therefore, nurse navigator variances may occur. Nabil Harding MD, [facility] 04/17/24 Nabil Harding MD CV CARDIAC CATH PROCEDURES Edite d Result - Final * POCT glucose (04/17/2024 8:27 AM LOCAL TELEPHONE OPERATOR) Glucose, POC 166 70 - 199 mg/dL Blood 04/17/2024 8:27 AM LOCAL TELEPHONE OPERATOR 04/17/2024 8:27 AM LOCAL TELEPHONE OPERATOR Nabil Harding MD LAB POCT ORDERABLES - DEVICE Fin al Result Performing Organization Address City/State/[facility] Co de Phone Number [facility] [address] [address] Department of Laboratories [place], [place] [id number] * TRANSTHORACIC ECHO (TTE) COMPLETE W DOPPLER/CF WO CONTRAST (04/05/2024 4:20 PM LOCAL TELEPHONE OPERATOR) Anatomical Region Laterality Modality Ultrasound 04/05/2024 3:53 PM LOCAL TELEPHONE OPERATOR Narrative 04/06/2024 7:04 AM LOCAL TELEPHONE OPERATOR [facility] Cardiology [address], [place], [place] [id number] [address] [facility] [address], [place] [address] P:[phone] P:[phone] Echocardiographic Report Patient Name: TAMIKA AGUILAR D : 1945 Study Date: 04/05/2024 3:53:42 PM Gender: M Tech: MOISÉS Location: [facility] Provider: NABIL HARDING Height(Cm): 160 BSA: 2.08 Weight(Kg): 97.1 Heart Rate: 87 BP: 134 / 81 Quality: Good Order Provider: NABIL HARDING PROCEDURES: Echocardiographic Report: Transthoracic echocardiogram with complete 2D, M-Mode, and color Doppler examination. With Strain Analysis. INDICATIONS: I50.32 Chronic diastolic (congestive) heart failure and Z95.3 Presence of xenogenic heart valve. MEASUREMENTS: 2D/MM Value Range Doppler Value Range Estimated EF 30 % PARESH Vmax 2.78 cm2 [ 2.00 - 4.00 ] LVIDd 2D 5.73 cm [ 4.20 - 5.80 ] AV Mean PG 10 mmHg LVIDs 2D 4.81 cm [ 2.50 - 4.00 ] AV Peak Tobi 2.14 m/s [ 1.00 - 1.70 ] LVPWd 2D 1.62 cm [ 0.60 - 1.00 ] AV Peak PG 18 mmHg IVSd 2D 1.58 cm [ 0.60 - 1.00 ] AV VTI 41.27 cm LA Volume Index 40 cc/m2 [ 16 - 34 ] LVOT Diam 2.30 cm [ 1.70 - 2.10 ] LVOT Peak [...] m/s E/E` 8 2D/MM Value Range Doppler Value Range - FINDINGS: Interpretation Site: Exam was interpreted at [facility]. Left Ventricle: Severe enlargement of left ventricle [...] Electronically Signed By: Jose Antonio Walls MD, [facility] 04/06/2024 7:04:01 AM LOCAL TELEPHONE OPERATOR Procedure Note Jose Antonio Walls MD - 04/06/2024 [facility] Cardiology [address] [facility] [address] [id number] [address] [facility] [address], [place] [address] P:[phone] P:[phone] Echocardiographic Report Patient Name: TAMIKA AGUILARPriscilla : 1945 Study Date: 04/05/2024 3:53:42 PM Gender: M Tech: MOISÉS Location: [place] Ref Provider: NABIL HARDING Height(Cm): 160 BSA: [...] FINDINGS: Interpretation Site: Exam was interpreted at [facility]. Left Ventricle: Severe enlargement of left ventricle [...] Electronically Signed By: Jose Antonio Walls MD, [facility] 04/06/2024 7:04:01 AM LOCAL TELEPHONE OPERATOR us Nabil Harding MD CV ECHO PROCEDURES Final Result * POCT glucose (03/27/2024 12:08 PM LOCAL TELEPHONE OPERATOR) Glucose, POC 157 70 - 199 mg/dL Blood 03/27/2024 12:0 8 PM LOCAL TELEPHONE OPERATOR 03/27/2024 12:08 PM LOCAL TELEPHONE OPERATOR us Nabil Harding MD LAB POCT ORDERABLES - DEVICE Fin al Result JOSE MIGUEL [address] [address] Department of [employer] [place] [address] * VASCULAR ACCESS US GUIDANCE, RIGHT LEFT HEART CATHETERIZATION CORONARY GRAFT WITH WITHOUT LEFT VENTRICULOGRAPHY ANGIOGRAM, CORONARY FLOW VELOCITY (CFR) / INSTATANEOUS FLOW VELOCITY (IFR), 1ST VESSEL (03/27/2024 11:45 AM LOCAL TELEPHONE OPERATOR) Anatomical Region Laterality Modality X-Ray Angiograph y Addenda Addendum by Nabil Harding MD on 03/27/2024 12:11 PM LOCAL TELEPHONE OPERATOR CARDIAC CATHETERIZATION AND INTERVENTION REPORT DATE OF PROCEDURE: 03/27/24 INDICATION FOR PROCEDURE: Worsening dyspnea on exertion, CHF with reduced ejection [...] abnormal MPI with worsening LV systolic function. Recent pharmacological MPI from 02/15/2024 reportedly showed LVEF 33%; small, zkpf-zz-iezperiq reversible defect in apical anterior and apical septal segments; fixed defect in basal inferior and mid inferior segments. Prior echo from 10/30/2022 reportedly showed LVEF 50-55%; normal-appearing aortic valve bioprosthesis with gradients within normal limits. Due to CKD, patient was prehydrated with normal saline. Benefits and risks of the procedure were discussed with the patient and his family in depth, and informed consent was taken prior to the procedure. Risks of the procedure include but are not limited to vascular complications like groin hematoma, retroperitoneal bleed, vessel perforation; periprocedural NV, cardiac arrhythmias, stroke, contrast induced nephropathy (elevated risk due to underlying CKD), and . After discussing all the benefits, risks and alternatives, patient was willing to proceed with the procedure. PROCEDURES PERFORMED: Ultrasound-guided right common femoral arterial access Selective left and right coronary angiogram Selective bypass graft Angiography Percutaneous coronary intervention-IFR of ostial left anterior descending artery Moderate sedation-CPT code 33096 and beyond Deployment of Mynx vascular closure device MODERATE SEDATION: Midazolam 1 mg , Fentanyl 25 mcg, start time 1059 stop time 1145, total direct nikf-nw-jnlo monitoring of conscious sedation 46 minutes (CPT 16049) TRAINED OBSERVER: Bernadette Putnam RN was trained observer for moderate sedation. ACCESS SITE: Right common femoral artery PROCEDURE: After obtaining informed consent, patient was brought to the center medical and lab director and prepped and draped in the usual sterile manner. Time-out and immediate reassessment of the patient was performed. After local anesthesia with lidocaine, right common femoral artery access was taken with micropuncture needle under ultrasound guidance followed by insertion of a 5 Burmese sheath. Selective left and right coronary angiography was performed using 5 Burmese JL4 and 5F JR4 catheters respectively. Orthogonal views were taken. JR4 diagnostic catheter was used for selective bypass graft Angiography of aortic coronary bypass grafts. Bioprosthetic Aortic valve was not crossed. Estimated blood loss was minimal. All specimens removed. The angiographic and other findings, and details of intervention are given below. FINDINGS: [place] CORONARY ARTERIES: LEFT MAIN CORONARY: Large caliber, relatively short vessel, no significant focal stenosis LEFT ANTERIOR DESCENDING ARTERY: Medium to large caliber vessel. There is about 50-60% stenosis at the ostium with abnormal IFR as described below; previously placed stents in the proximal-mid segment are patent with minimal lumen loss. The vessel tapers distally and reaches the LV apex diagonal branches are medium caliber vessel without significant focal stenosis LEFT CIRCUMFLEX ARTERY: Large caliber vessel, gives rise to small to medium caliber OM1 branch and medium caliber OM2 branch without significant focal stenosis. RIGHT CORONARY ARTERY: Medium caliber vessel, chronic total occlusion in the mid segment LEFT VENTRICULOGRAM: Not performed HEMODYNAMIC ASSESSMENT: Opening pressure 149/75 mmHg, closing pressure 156/60 mmHg. BYPASS GRAFT ANGIOGRAPHY: SVG TO OM: Large caliber graft, no significant focal stenosis. The [place] vessel after anastomosis is a medium caliber vessel without significant focal stenosis. SVG TO RPDA: Large caliber graft, labu-hi-uahqxctx, 30-50% diffuse plaque is seen in the mid segment. The RPDA after anastomosis is a medium caliber vessel without significant stenosis. INTERVENTION REPORT: Intermediate degree stenosis was seen at the ostium of the LAD. Therefore, we proceeded with a functional assessment of the stenosis with IFR. Patient received 8000 units of unfractionated heparin for procedural anticoagulation. Failed Omni wire pressure guidewire was zeroed outside the body. Five Burmese JL4 guide catheter was advanced into the aortic root. After this, the pressure wire was normalized in the aorta after flushing the catheter with a normal saline. The left main coronary artery ostium was reengaged, and wire was advanced into the mid LAD. IFR was measured at 0.87 in the mid LAD, and dropped to 0.84 in the proximal segment suggestive of hemodynamically significant at the ostial LAD. The wire was taken on an angiogram showed [...] back for planned PCI on ostial LAD. Patient will undergo repeat echocardiogram to reassess LVEF, and bioprosthetic aortic valve prior to planned PCI. Continue guideline directed medical treatment for CHF, and antiplatelet and statin treatment for CAD. Patient to be prehydrated with normal saline before his planned PCI. Plan discussed with the patient and his family. Voice recognition software was used to complete this document, therefore, nurse navigator variances may occur. Nabil Harding MD, [facility] 03/27/24 Nabil Harding MD CV CARDIAC CATH PROCEDURES Edite d Result - Final * POCT glucose (03/27/2024 7:13 AM LOCAL TELEPHONE OPERATOR) Glucose, POC 172 70 - 199 mg/dL Blood 03/27/2024 7:13 AM LOCAL TELEPHONE OPERATOR 03/27/2024 7:13 AM LOCAL TELEPHONE OPERATOR us Nabil Harding MD LAB POCT ORDERABLES - DEVICE Fin al Result JOSE MIGUEL [address] [address] Department [place] [address] * XR Chest 1 Vw Portable (03/19/2024 3:19 AM LOCAL TELEPHONE OPERATOR) Anatomical Region Laterality Modality Body, Chest N/A Computed Radiogr aphy 03/19/2024 9:19 AM LOCAL TELEPHONE OPERATOR Impressions 03/19/2024 9:19 AM LOCAL TELEPHONE OPERATOR Comparison is made to a prior study dated 06/30/2022. Median sternotomy wires are present. No new focal consolidation, pulmonary edema, or pneumothorax. Possible trace left pleural effusion. No pneumothorax. Cardiomediastinal silhouette is stable. Electronically signed by: Blanca Noriega M.D. Narrative 03/19/2024 9:19 AM LOCAL TELEPHONE OPERATOR EXAMINATION: XR CHEST 1 VIEW HISTORY: General [...] sult * (ABNORMAL) eGFR (03/19/2024 2:21 AM LOCAL TELEPHONE OPERATOR) eGFR 24(L) >=60 mL/min/1. 73 m2 Comment: Interpretive Data Reference Interval Normal >/= 90 mL/min/1.73m2 Mildly decreased* 60 - 89 mL/min/1.73m2 Mildly to moderately decreased 45 - 59 mL/min/1.73m2 Moderately to severely decreased 30 - 44 mL/min/1.73m2 Severely decreased 15 - 29 mL/min/1.73m2 Kidney Failure < 15 mL/min/1.73m2 *Relative to young adult level Estimated glomerular [...] last reviewed 2021. Blood 03/19/2024 2:21 AM LOCAL TELEPHONE OPERATOR 03/19/2024 2:25 AM LOCAL TELEPHONE OPERATOR us Reese Aguillon MD LAB BLOOD ORDERABLES Final Result JOSE MIGUEL [address] [address] Department [place] [address] * (ABNORMAL) Differential, auto (03/19/2024 2:21 AM LOCAL TELEPHONE OPERATOR) Neutrophil abs 10.4(H) 1.5 - 6.5 K/cumm Imm gran abs 0.1 0.0 - 0.1 K/cumm [facility] Lymphocyte abs 1.1 0.8 - 3.3 K/cumm [facility] Monocyte abs 1.1(H) 0.2 - 0.8 K/cumm [facility] Eosinophil abs 0.1 0.0 - 0.5 K/cumm [facility] Basophil abs 0.1 0.0 - 0.1 K/cumm [facility] Neutrophil pct 81.5 % JOSE MIGUEL Comment: Interpretive Data Percent cell count reference ranges are not reported, since discordance with absolute values may lead to misinterpretation of CBC data. Current Interpretive Data was last revised on 2017. Imm gran pct 0.5 % JOSE MIGUEL Comment: Interpretive Data Percent cell count reference ranges are not reported, since discordance with absolute values may lead to misinterpretation of CBC data. Current Interpretive Data was last revised on 2017. Lymphocyte pct 8.7 % JOSE MIGUEL Comment: Interpretive Data Percent cell count reference ranges are not reported, since discordance with absolute values may lead to misinterpretation of CBC data. Current Interpretive Data was last revised on 2017. Monocyte pct 8.4 % JOSE MIGUEL Comment: Interpretive Data Percent cell count reference ranges are not reported, since discordance with absolute values may lead to misinterpretation of CBC data. Current Interpretive Data was last revised on 2017. Eosinophil pct 0.5 % JOSE MIGUEL Comment: Interpretive Data Percent cell count reference ranges are not reported, since discordance with absolute values may lead to misinterpretation of CBC data. Current Interpretive Data was last revised on 2017. Basophil pct 0.4 % JOSE MIGUEL Comment: Interpretive Data Percent cell count reference ranges are not reported, since discordance with absolute values may lead to misinterpretation of CBC data. Current Interpretive Data was last revised on 2017. Blood 03/19/2024 2:21 AM LOCAL TELEPHONE OPERATOR 03/19/2024 2:25 AM LOCAL TELEPHONE OPERATOR us Reese Aguillon MD LAB BLOOD ORDERABLES Final Result JOSE MIGUEL [address] [address] Department [place] [address] * (ABNORMAL) Pro B-type natriuretic peptide (03/19/2024 2:21 AM LOCAL TELEPHONE OPERATOR) NT-proBNP 481(H) <=450 pg/mL Comment: Interpretive Comments: A. Dyspnea in Acute Care Setting All Ages: < 300 pg/ml, acute heart failure unlikely. < 50 yrs: 300 - 450 pg/ml, further investigation warranted. > 450 pg/ml, acute heart failure likely. 50 - 74 yrs: 300 - 900 pg/ml, further investigation warranted. > 900 pg/ml, acute heart failure likely . > or = 75 yrs: 450 - 1800 pg/ml, further investigation warranted. > 1800 pg/ml, acute heart failure likely. B. Non-acute Setting < 75 yrs < 125 pg/ml, rules out heart failure. > or = 125 pg/ml, further investigation warranted. > or = 75 yrs < 450 pg/ml, rules out heart failure. > or = 450 pg/ml, further investigation [...] as advanced age. - References: 1. Angelo MKCNIGHT et.al. Eur Heart J. 2006:27:330-337. 2. Wendy RW, Reece AM. J. AM Jenni Cardiol: Cardiovasc Imag. 2009;2: 216- 225. Interpretive Data Last Revised Date: 2017. Blood 03/19/2024 2:21 AM LOCAL TELEPHONE OPERATOR 03/19/2024 3:33 AM LOCAL TELEPHONE OPERATOR Reese Aguillon MD LAB BLOOD ORDERABLES Final Result [facility] [address] [address] Department [place] [address] * Respiratory pathogen panel Nasopharyngeal (03/19/2024 2:21 AM LOCAL TELEPHONE OPERATOR) Pathologist [facility] Influenza A RNA Not Detected Not Detected Influenza B RNA Not Detected Not Detected [facility] RSV RNA Not Detected Not Detected [facility] COVID-19 RNA Not Detected Not Detected [facility] Coronavirus 229E RNA Not Detected Not Detected [facility] Coronavirus HKU1 RNA Not Detected Not Detected [facility] Coronavirus NL63 RNA Not Detected Not Detected [facility] Coronavirus OC43 RNA Not Detected Not Detected [facility] Adenovirus DNA Not Detected Not Detected [facility] Metapneumovirus RNA Not Detected Not Detected [facility] Rhinovirus/Enterov irus RNA Not Detected Not Detected [facility] Parainfluenza 1 RNA Not Detected Not Detected [facility] Parainfluenza 2 RNA Not Detected Not Detected [facility] Parainfluenza 3 RNA Not Detected Not Detected [facility] Parainfluenza 4 RNA Not Detected Not Detected [facility] B. pertussis DNA Not Detected Not Detected [facility] B. parapertussis DNA Not Detected Not Detected [facility] C. pneumoniae DNA Not Detected Not Detected [facility] M. pneumoniae DNA Not Detected Not Detected [facility] Comment: Interpretive Data The [employer] FilmArray Respiratory Panel (RP2.1) assay is a [...] cross-react with some isolates of Coronavirus HKU1. A dual positive result may be due to cross-reactivity or may indicate a co- infection. The detection and identification of specific viral and bacterial nucleic acids from individuals exhibiting signs and symptoms of a respiratory infection aids in the diagnosis of respiratory infection if used in conjunction with other clinical and epidemiological information. The results of this test should not be used as the sole basis for diagnosis, treatment, or other management decisions. Negative results in the setting of a respiratory illness may be due to infection with pathogens that are not detected by this test. Positive results do not rule out infection/co-infection with other organisms. The agent(s) detected by the FilmArray RP2.1 may not be the definite cause of disease. Additional testing (lab, imaging, etc.) may be necessary when evaluating a patient with possible respiratory tract infection. The FilmArray RP2.1 assay has FDA clearance for testing of PHOTOGRAPHER LITHOGRAPHIC swabs. The performance characteristics of this assay have been determined by [facility]. Current interpretive data was last revised on 2020. Nasopharyngeal 03/19/2024 2: 21 AM LOCAL TELEPHONE OPERATOR 03/19/2024 2:24 AM LOCAL TELEPHONE OPERATOR [facility] 03/19/2024 3:21 AM LOCAL TELEPHONE OPERATOR Is the Patient experiencing symptoms consistent with COVID?->Yes Surveillance testing for transplant patient?->No Reese Aguillon MD LAB MICROBIOLOGY - GENERAL ORDERABLES Final Result [facility] [address] Department [place] [address] CH * (ABNORMAL) CBC with auto differential (03/19/2024 2:21 AM LOCAL TELEPHONE OPERATOR) WBC 12.7(H) 3.8 - 9.9 K/cumm Hgb 13.1 13.0 - 17.5 g/dL [facility] Hct 40.1 38.9 - 50.3 % [facility] Plt 186 150 - 400 K/cumm [facility] MPV 10.7 9.1 - 12.3 fL [facility] RBC 4.47 4.30 - 5.80 M/cumm [facility] MCV 89.7 81.3 - 96.4 fL [facility] MCH 29.3 27.1 - 33.3 pg [facility] MCHC 32.7 32.3 - 35.7 g/dL [facility] RDW CV 14.6 11.1 - 14.9 % [facility] RDW SD 47.8 35.7 - 48.1 fL [facility] NRBC abs 0.00 0.00 - 0.01 K/cumm [facility] Blood 03/19/2024 2:21 AM LOCAL TELEPHONE OPERATOR 03/19/2024 2:25 AM LOCAL TELEPHONE OPERATOR Reese Aguillon MD LAB BLOOD ORDERABLES Final Result Performing Organization Address City/[facility]/ZIP Co de Phone Number [facility] [address] Department [place] [address] * (ABNORMAL) Comprehensive metabolic panel (03/19/2024 2:21 AM LOCAL TELEPHONE OPERATOR) Sodium 141 135 - 145 mmol/L Potassium, [...] >/= 126 mg/dl is diagnostic for diabetes. Fasting is defined as no caloric intake [...] classification and Diagnosis of Diabetes Diabetes Care 202; 46: S19-S40. Current interpretive data was last [...] Units/L [facility] Blood 03/19/2024 2:21 AM LOCAL TELEPHONE OPERATOR 03/19/2024 2:25 AM LOCAL TELEPHONE OPERATOR us Reese Aguillon MD LAB BLOOD ORDERABLES Final Result [facility] [address] Department [place] [address] * Hepatitis C Antibody Reflex Hepatitis C RNA Quantitative PCR Blood (06/14/2019 3:47 PM LOCAL TELEPHONE OPERATOR) Hep C Ab Negative Negative [facility] Blood specimen (specimen) 06/14/2019 3:47 PM LOCAL TELEPHONE OPERATOR 06/14/2019 8:03 PM LOCAL TELEPHONE OPERATOR us Notinfile Unknown LAB MICROBIOLOGY - GENERAL [place] [address] Department [place] [address] * COLONOSCOPY REPORT (05/18/2014) Anatomical Region Laterality Modality Other Narrative 05/18/2014 Ordered by an unspecified provider. us Historical Provider GI PROCEDURE ORDERABLES F inal Result from Last 3 Months or Most Recently Relevant to Health Maintenance Insurance [employer] MEDICARE PPO [employer] MEDICARE PPO [employer] MEDICARE PPO HU[employer] CHOICE MEDICARE PPO Advance Directives For more information, please contact: [phone] * Full Code (Latest Code Status on File) Date Activated Date Inactivated Comments 06/30/2022 6:44 PM 07/03/2022 5:32 PM * Full Code Date Activated Date Inactivated Comments 06/30/2022 6:39 PM 06/30/2022 6:44 PM * Full Code Date Activated Date Inactivated Comments 01/29/2022 2:14 PM 01/30/2022 6:06 PM * Full Code Date Activated Date Inactivated Comments 09/03/2021 12:10 PM 09/04/2021 7:37 PM Care Teams Net Manager Relationship Specialty Start Date End Date Rafa Chavez DO [address] [place] [address] [address] PCP - General Internal Medicine 06/01/24 Yfn Gill MD Referring Physician Nephrology 01/22/22 Aguila Chris MD Consulting Physician Cardiology 01/22/22 [place] [address] [address] Consulting Physician Endocrinology Diabetes & Metabolism 01/22/22 Neeraj La MD [address] [address] Surgeon Vascular Surgery 01/30/22
--- OUTSIDE RECORDS SUMMARY | 2024-06-14 12:21 | XMS_ITS | Encounter Summary ---
Author Organization [facility] Healthcare Address [address] [place] [address] Care Team Providers Care Rn Geriatric Name Role Phone Yfn Gill MD Unavailable [phone] Aguila Chris MD Unavailable [phone] Malcolm Castro MD Unavailable [phone] Neeraj La MD Unavailable [phone] Rafa Chavez DO Primary Care Provider [phone] Encounter Details Date Type Department Care Team (Late st Contact Info) Description 06/13/2024 Orders Only [facility] Medical Group Diabetes and Endocrinology [address] [place] [address] Provider, MD Nelson [address] [place], [place] [id number] Social History Tobacco Use Types Packs/Day Years [...] on file Legal Sex Male 1:58 AM SIGN LANGUAGE TRANSLATOR Gender Identity Not on file Sexual Orientation Not on file documented as of this encounter Plan of Treatment Not on file documented as of this encounter Goals Goal Patient Goal Type Associated Problems Recent Progress Patient-Stated? Author CCM Chronic Pain Care Plan Chronic Care Management No change(04/14 11:08 AM SIGN LANGUAGE TRANSLATOR) Pool Welch, KATHERINE Note: Problem: Chronic Pain Goals: 1. Minimize further functional decline 2. Maximize quality of life 3. Control pain Strategies: - Activity/exercise program recommendation - Conservative stepwise pain medicine strategy with multi-disciplinary approach - Recommend healthy lifestyle strategies and compensatory methods as needed documented as of this encounter Procedures Procedure Name Priority Date/Time Associated Diagnosis Comments HM CREATININE Routine 05/31/2024 12:52 PM SIGN LANGUAGE TRANSLATOR COMPREHENSIVE METABOLIC PANEL Routine 05/31/2024 documented in this encounter Results * (ABNORMAL) HM CREATININE (05/31/2024 12:52 PM SIGN LANGUAGE TRANSLATOR) SCRIBED Creatinine 2.16(A) 0.7 - 1.3 mg/dl EXTERNAL LAB SCRIBED eGFR in NonAfrican Greek 30 >59 - NA EXTERNAL LAB Blood 05/31/2024 12:5 2 PM SIGN LANGUAGE TRANSLATOR us Historical Provider HEALTH MAINTENANCE Edited Result - Final EXTERNAL LAB * Comprehensive metabolic panel (05/31/2024) Blood Impressions EXTERNAL LAB - 05/31/2024 Lab ordered in error Historical Provider LAB BLOOD ORDERABLES Edit ed Result - Final EXTERNAL LAB documented in this encounter Visit Diagnoses Not on filedocumented in this encounter Care Teams Rn Geriatric Relationship Specialty Start Date End Date Rafa Chavez DO [address] [place] [address] PCP - General Internal Medicine 06/01/24 Yfn Gill MD Referring Physician Nephrology 01/22/22 Aguila Chris MD Consulting Physician Cardiology 01/22/22 [place] [address] [address] Consulting Physician Endocrinology Diabetes & Metabolism 01/22/22 Neeraj La MD [address] [place] [address] Surgeon Vascular Surgery 01/30/22 documented as of this encounter
--- OUTSIDE RECORDS SUMMARY | 2024-06-14 12:21 | XMS_ITS | Data Portability ---
Author Organization [facility], Main Office Address [address] [place] [address] Care Team Providers Care Civil Manager Name Role Phone BENITARENAE JOCELYNE Primary Care Provider JOCELYNE DAUGHERTY Referring Provider Assessment Encounter Date Assessment Date Assessment LastModified by Organization Details LastModified Time 01/27/2024 01/27/2024 This note is dictated and transcribed by [employer]. Cleaner Window variances may occur. Despite proofreading, typographical errors may occur. Occasional wrong-word or 'pplka-j-skgu' substitutions may have occurred due to the inherent limitations of voice recording. Read the chart carefully and recognize, using context, where substitutions have occurred. Not available 01/27/2024 14:32:20 05/11/2024 05/11/2024 This note is dictated and transcribed by [employer]. [employer] Window variances may occur. Despite proofreading, typographical errors may occur. Occasional wrong-word or 'liiip-r-wsgq' substitutions may have occurred due to the [...] ammonium lactate 12 % lotion 2022 023 [id number], [address], [place], [address], 03/30/2023 15:16:36 Patient TargetsNo targets recorded. Patient Instructions Encounter Date Encounter Id Patient Instructions Last Modified By Organization Details Last Modified Time 05/11/2024 [id number] diabetic foot care education Not available 05/11/2024 16:21:28 Reason for Referral None Reported. Problems Name Problem SNOMED Code Status Onset Date Resolution Date Notes Provider Name and Address Organization Details Recorded Time Arthritis 0552124 Active 2022 Yovana crooks [facility] 3 14:52:19 Diabetes mellitus 51009770 Active 2022 Yovana Arvizu null, [facility] 3 14:52:25 Ear problem 326048194 Active 2022 Yovana Arvizu null, [facility] 3 14:52:32 Disorder of eye 117265446 Active 2022 Yovana Arvizu null, [facility] 3 14:52:40 Heart disease 12068263 Active 2022 Yovana Arvizu null, [facility] 3 14:52:46 Hyperchole sterolemia 24473496 Active 2022 Yovana Arvizu null, [facility] 3 14:52:56 Kidney disease 43491375 Active 2022 Yovana Arvizu null, [facility] 3 14:53:05 Obesity 473138718 Active 2022 Yovana crooks, [facility] 3 14:53:12 Sleep disorder 35722597 Active 2022 Yovana Arvizu null, [facility] 3 14:53:29 Dystrophia unguium 84254376 Active 2022 Merrick Cardoso, TANYA [address] [facility], [place] [address], [place], [address] , [facility] 3 15:14:00 Acquired hallux limitus of right great toe 4245509832635 100 Active 2022 Merrick Cardoso DPM [address], [place], [address] , [facility] 3 15:14:44 Foot callus 059854162 Active 2022 Merrick Cardoso DPM [address], [place], [address] , [facility] 3 15:15:32 Fissure in skin 85200283 Active 2022 Merrick Cardoso DPM [address], [address], [place], [address] , [facility] 3 15:15:39 Edema of lower extremity 971205498 Active 2024 Merrick Cardoso DPM [address], [place], [address] , [facility] 5 16:21:15 Notes:back/neck problem, pro state, urinary/bladder/kidney problems, use of blood thinners Problem Notes None recorded. Procedures Surgical History Date Name Laterality Status Provider Name and Address Organization Details Recorded Time 01/27/20 24 Nail Debridement completed Merrick Cardoso DPM [address], [address], [place], [address], [facility] 01/27/2024 14:31:56 01/12/20 23 Nail Debridement completed Merrick Cardoso DPM [address], [place], [address], [facility] 01/11/2023 15:13:45 Knee Surgery completed Not Available [facility] 07/01[facility] 13:12:58 procedure on heart completed Not Available [facility] 13:12:58 procedure on urinary bladder completed Not Available [facility]/01[facility] 13:12:58 Imaging Results None recorded. Procedure Notes None recorded. Medical Equipment None Reported. Allergies Allergen ID Allergen Name Allergen Category Reaction Reaction Severity Criticality Documentation Date Start Date Code Code System Note Provider Name and Address Organization Details Recorded Time 10903 codeine medicatio n itching Not available Not available 07/01/2022 2670 RxNorm Not Available [facility] 13:15:32 Medications Name Sig Start [...] Updated DateTime 01/11/2023 172.72 cm 39.5 kg/m2 175491.02 g Yovana Nolberto [facility] [employer] [facility] 01/11/2023 14:52:01 Date Recorded Heart rate Respiratory rate Body temperature Oxygen saturation Oxygen saturation in Arterial blood by Pulse oximetry Systolic blood pressure Diastolic blood pressure Provider Name and Address Organization Details Last Updated DateTime 3 76 /min 16 /min 97.4 [degF] 98 % 98 % 130 mm[Hg] 82 mm[Hg] Deanna Navarrete [facility] [employer] [facility] 3 14:54:08 Date Recorded Body height Body mass index (BMI) Body weight Heart rate Respiratory rate Oxygen saturation Oxygen saturation in Arterial blood by Pulse oximetry Systolic blood pressure Diastolic blood pressure Provider Name and Address Organization Details Last Updated DateTime 3 172.72 cm 39.5 kg/m2 285742. 02 g 99 /min 14 /min 97 % 97 % 143 mm[Hg] 73 mm[Hg] Marta Najera [facility] [employer] [facility] 3 14:38:18 Date Recorded Body height Body mass index (BMI) Body weight Heart rate Respiratory rate Oxygen saturation Oxygen saturation in Arterial blood by Pulse oximetry Systolic blood pressure Diastolic blood pressure Provider Name and Address Organization Details Last Updated DateTime 4 172.72 cm 39.5 kg/m2 554392. 02 g 96 /min 14 /min 98 % 98 % 163 mm[Hg] 77 mm[Hg] Marta Najera [facility] [employer] [facility] 4 16:40:20 Date Recorded Body height Body mass index (BMI) Body weight Heart rate Respiratory rate Oxygen saturation Oxygen saturation in Arterial blood by Pulse oximetry Systolic blood pressure Diastolic blood pressure Provider Name and Address Organization Details Last Updated DateTime 4 172.72 cm 39.5 kg/m2 733794. 02 g 85 /min 14 /min 98 % 98 % 137 mm[Hg] 75 mm[Hg] Marta Najera [facility] 4 14:11:03 Date Recorded Body height Body mass index (BMI) Body weight Heart rate Respiratory rate Oxygen saturation Oxygen saturation in Arterial blood by Pulse oximetry Systolic blood pressure Diastolic blood pressure Provider Name and Address Organization Details Last Updated DateTime 5 172.72 cm 39.5 kg/m2 204807. 02 g 102 /min 16 /min 97 % 97 % 126 mm[Hg] 66 mm[Hg] Marta Najera [facility] 5 15:19:04 Social History Question Answer Notes LastModified by Organizat ion Details LastModified Time Tobacco Smoking Status Former Smoker Yovana Nolberto crooks, [facility] 01/11/2023 14:55:43 What Is Your Level Of Alcohol Consumption? None [email or web address] Information not available 01/11/2023 Sex: Unknown Functional Status None recorded. Mental Status None recorded. Family History Relationship Description Onset Age of this Age Resolved Age Notes LastModified by Organization Details LastModified Time Unspecified Relation Hypertensive disorder [id number].143 [id number] Not available 07/01/2022 13:12:59 Unspecified Relation Diabetes mellitus [id number].937 [id number] Not available 07/01/2022 13:12:59 Unspecified Relation Kidney disease MIGRATION.270 [id number] Not available 07/01/2022 13:12:59 Unspecified Relation Arthritis [...] HAVE YOU BEEN HOSPITALIZED OR SEEN IN [facility] IN THE PAST YEAR ? N [...] SNOMED-CT Code Diagnosis ICD10 Code Diagnosis Note [id number] [facility] [place] [address] [place] [address] 02/13/2021 00:00:00 02/13/2021 11:18:11 [id number] Merrick Cardoso DPM [facility] [place] [address] [place] [address] 01/11/2023 14:37:23 01/20/2023 11:58:11 Diabetes mellitus 51333485 E11.40 Patient educated on neuropathy , diabetes, diabetic diet, and daily foot exams. Patient is to check feet daily for new wounds, blisters, redness to prevent infection and ulceration s to the feet. Patient will return to clinic in 3 months for diabetic foot workup. Dystrophia unguium 81380 009 L60.3 left great toenailDeb rided without incident follow-up as needed Acquired h allux limitus of right great toe 8436283625 256956 M20.5X1 educated on conditionC ontinue supportive shoe gearRange of motion exercises dailyRice therapyFol low-up as needed [id number] Merrick Cardoso DPM [facility] [place] [address] [facility] [place] [address] 03/30/2023 14:22:28 04/02/2023 09:27:28 Foot callus 782409564 L84 right footuse rory pena dailyfollo w up as needed Fissure in skin 89689933 R23.4 keep area cleancont DM insolesmay require more support to prevent sheering in shoes [id number] Merrick Cardoso DPM [facility] [place] [address] [place] [address] 07/06/2023 16:36:52 07/07/2023 13:50:23 Foot callus 658325443 L84 resolvedus e rory pena dailyno further paincont supportive shoefollow up as needed [id number] Merrick Cardoso DPM [facility] [place] [address] [place] [address] 01/27/2024 13:57:23 01/27/2024 14:38:22 Diabetes mellitus 24648019 E11.40 continue diabetic control per PCP recommenda tion Acquired h allux limitus of right great toe 2789098268 486939 M20.5X1 educated on conditionC ontinue supportive shoe gearRange of motion exercises dailyRice therapywil l monitor Dystrophia unguium 19119 009 L60.3 left great toenailtoe nails debrided without incident [id number] Merrick Cardoso DPM [facility] [place] [address] [place] [address] 05/11/2024 15:12:23 05/16/2024 15:30:57 Diabetes mellitus 75183973 E11.40 continue diabetic control per PCP recommenda tionrecomm end supportive shoe gearCheck foot daily for wounds infectionF ollow-up in 3 months for diabetic foot care Edema of l ower extremity 064130465 R60.0 recommend chronic compressio n stockings bilateral [...] REPLACEMENT/A DVANTAGE - PPO) Sabino Wells Cicio [id number] Gabriel Wells Cicio 03/30/2023 1 [employer] (MEDICARE REPLACEMENT/A DVANTAGE - PPO) Sabino Wells Cicio [id number] Gabriel Wells Cicio 07/06/2023 1 [employer] (MEDICARE REPLACEMENT/A DVANTAGE - PPO) Sabino Celeste [id number] Gabriel Wells Cicio 01/27/2024 1 [employer] (MEDICARE REPLACEMENT/A DVANTAGE - PPO) Sabino Wells Cicio [id number] Gabriel Wells Cicio 05/11/2024 1 [employer] (MEDICARE REPLACEMENT/A DVANTAGE - PPO) Sabino Celeste [id number] Gabriel Celeste Notes Date Note Type Note [...] Cardoso DPM [address], [address], [place], [address], [facility] 01/19/2023 16:40:59 3 text/html Patient is a 77 yr old male who presents for callus to the plantar foot. Patient denies any wounds. Patient denies any other pedal complaints. Merrick Cardoso DPM [address], [place], [address], [employer] 04/02/2023 09:14:24 4 text/html Patient follows up for callus, he states with proper shoe gear and use of pumas stone he no longer has pain or the callus. Denies any new complaints. Merrick Cardoso DPM [address], [place], [address], [facility] 07/07/2023 10:04:27 text/html . Patient is a [...] Cardoso DPM [address], [address], [place], [address], [facility] 01/27/2024 14:33:25 text/html . Patient is a 78-year-old male diabetic who returns the office for routine diabetic foot care. Patient states overall he is doing well denies any wounds or infection of the feet. Patient does have swelling of his lower extremities that is fxbn-ou-lwfrnudb in nature he denies any calf pain or open wounds to the lower legs I did recommend compression stockings he is currently being evaluated for congestive heart failure. Patient denies any other complaints. Merrick Cardoso DPM [address], [place], [address], [facility] 05/11/2024 16:21:52
--- OUTSIDE RECORDS SUMMARY | 2024-06-14 12:21 | XMS_ITS | Referral Summary ---
Author Organization [facility] Address [address] [place] [address] Care Team Providers Care Hand Flatwork Finisher Name Role Phone Yfn Gill MD Unavailable [phone] Aguila Chris MD Unavailable [phone] Malcolm Castro MD Unavailable [phone] Neeraj La MD Unavailable [phone] Rafa Chavez DO Primary Care Provider [phone] Encounters Date Type Department Care Team Description 06/13/2024 Orders Only [facility] Medical Group Diabetes and Endocrinology [facility] [place] [address] ProviderNelson MD 06/08/2024 1:18 PM SENIOR PROJECT MANAGER ENGINEERING - 06/08/2024 11:59 PM SENIOR PROJECT MANAGER ENGINEERING Hospital Encounter [facility] [id number] [place] [address] Type 2 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 disease, with long-term current use of insulin (HCC) Discharge Disposition: Discharge to home or self care 06/08/2024 1:15 PM SENIOR PROJECT MANAGER ENGINEERING Office Visit [facility] [address] [facility] [address], [place] [address] Terra Joiner PA Type 2 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 disease, with long-term current use of insulin (HCC) (Primary Dx); Hypertension associated with diabetes (HCC); Mixed diabetic hyperlipidemia associated with type 2 diabetes mellitus (CMS/HCC) (HCC) 06/02/2024 1:00 PM SENIOR PROJECT MANAGER ENGINEERING Office Visit [facility] Cardiology [address] [place] [address] [address] [place] [phone] Malu Solomon NP Edema, lower extremity (Primary Dx); Chronic combined systolic and diastolic CHF (congestive heart failure) (CMS/HCC) (HCC); Stage 3b chronic kidney disease (HCC) 06/01/2024 Telephone [place] [address] [place] [phone] Nabil Harding MD 05/12/2024 Documentation [place] [address] [place] [phone] Shila Bowers MA 05/10/[address] [place] [phone] Nabil Harding MD Medication Problem 05/10/2024 8:30 AM SENIOR PROJECT MANAGER ENGINEERING Office Visit [place] [address] [place] [phone] Nabil Harding MD Coronary artery disease involving dot [place] coronary artery of [place] heart without angina pectoris (Primary Dx); S/P CABG x 2; Cardiomyopathy, ischemic; S/P angioplasty with stent; Chronic systolic congestive heart failure (CMS/HCC) ([facility]); S/P aortic valve replacement with bioprosthetic valve; Hypertension associated with diabetes ([facility]); Stage 3b chronic kidney disease ([facility]); Morbid obesity with BMI of 40.0-44.9, adult ([facility]); MARY on CPAP 04/17/[address] [place] [phone] Nabil Harding MD 04/17/2024 9:30 AM SENIOR PROJECT MANAGER ENGINEERING - 04/17/2024 11:30 AM [facility] Cardiac Catheterization Lab [address] [place] [address] Nabil Harding MD PCI SHAYY MAJOR CORONARY [id number] - [id number] 04/17/2024 6:10 AM SENIOR PROJECT MANAGER ENGINEERING - 04/17/2024 3:36 PM SENIOR PROJECT MANAGER ENGINEERING Hospital Encounter [facility] Cardiac Catheterization Lab [address] [place] [address] Nabil Harding MD Coronary artery disease involving dot [place] coronary artery of [place] heart without angina pectoris Discharge Disposition: Discharge to home or self care 04/13/2024 Telephone [facility] Cardiology [address] [place] [phone] Nabil Harding MD 04/10/2024 Telephone [facility] Cardiology [address] [place] [phone] Nabil Harding MD 04/05/2024 3:00 PM SENIOR PROJECT MANAGER ENGINEERING Ancillary Procedure [facility] Cardiology [address] [place] [phone] Chronic heart failure with preserved ejection fraction (CMS/HCC) ([facility]); S/P aortic valve replacement with bioprosthetic valve 03/27/2024 Telephone [facility] Cardiology [address] [place] [phone] Nabil Harding MD lab order 03/27/2024 10:30 AM SENIOR PROJECT MANAGER ENGINEERING - 03/27/2024 12:00 PM SENIOR PROJECT MANAGER ENGINEERING [facility] Cardiac Catheterization Lab [address] [place] [address] Nabil Harding MD RIGHT LEFT HEART CATHETERIZATION WITH CORONARY ANGIOGRAPHY GRAFT AND WITH OR WITHOUT LEFT VENTRICULOGRAPHY [address] 03/27/2024 6:31 AM SENIOR PROJECT MANAGER ENGINEERING - 03/27/2024 3:17 PM SENIOR PROJECT MANAGER ENGINEERING Hospital Encounter [facility] Cardiac Catheterization Lab [address] [place] [address] Nabil Harding MD Coronary artery disease involving dot [place] coronary artery of [place] heart without angina pectoris; Cardiovascular stress test abnormal Discharge Disposition: Discharge to home or self care 03/19/2024 2:54 AM SENIOR PROJECT MANAGER ENGINEERING - 03/19/2024 6:44 AM SENIOR PROJECT MANAGER ENGINEERING Emergency [facility] Emergency Department [address] [place] [address] Reese Aguillon MD Generalized weakness (Primary Dx); Viral URI Discharge Disposition: Discharge to home or self care from Last 3 Months Allergies Active Allergy [...] 1 tablet (300 mg total) by mouth septic tank cleaner before breakfast 0 Active alpha lipoic acid [...] (06/09/2022): Added automatically from request for surgery [id number] Carotid stenosis, right 01/07/2022 Overview (01/07/2022): Added automatically from request for surgery [id number] Assessment & Plan (04/19/2023 1:00 PM SENIOR PROJECT MANAGER ENGINEERING): Status post TCAR. Stent patent. Continue anti-platelet therapy follow-up 6 months. Assessment & Plan (03/12/2022 5:16 PM SENIOR PROJECT MANAGER ENGINEERING): Impression: Patient is status post right TCAR. [...] (02/05/2020): Added automatically from request for surgery [id number] Hx of colonic polyps 10/10/2019 Overview (10/10/2019): Added automatically from request for surgery [id number] History of colon polyps 07/10/2019 Overview (07/10/2019): Added automatically from request for surgery [id number] Hypertension associated with diabetes 06/29/2019 Assessment & Plan (06/08/2024 2:36 PM SENIOR PROJECT MANAGER ENGINEERING): Chronic problem, Controlled on metoprolol, Entresto, HCTZ, bumetanide, hydralazine, amlodipine. No changes. Assessment & Plan (04/19/2023 1:00 PM SENIOR PROJECT MANAGER ENGINEERING): Hypertension chronic controlled. Continue current medical management Assessment & Plan (01/14/2022 9:31 AM CDT): Hypertension chronic and controlled. Continue current medical therapy. Chronic heart failure with p reserved ejection fraction ([facility]) 06/29/2019 Morbid obesity with BMI of 40.0-44.9, [...] actual BMI) Coronary artery disease invo lving dot lake coronary artery of [place] heart without angina pectoris 05/06/2015 Overview (08/07/2016): Coronary artery disease involving [place] coronary artery of [place] heart without angina pectoris Assessment & Plan (01/07/2022 3:00 PM CDT): Stable. Continue medical therapy. Mixed diabetic hyperlipidemi a associated with type 2 diabetes mellitus ([facility]) 05/06/2015 Overview (08/07/2016): Type 2 diabetes mellitus with complication Assessment & Plan (06/08/2024 2:36 PM SENIOR PROJECT MANAGER ENGINEERING): Chronic problem. On statin therapy, no changes. Assessment & Plan (04/19/2023 1:00 PM SENIOR PROJECT MANAGER ENGINEERING): Hyperlipidemia chronic and controlled. Continue current medical [...] complication Assessment & Plan (06/08/2024 2:37 PM SENIOR PROJECT MANAGER ENGINEERING): Chronic problem, improving but not at goal. [...] week so we can look at his [employer] Dona data and advise on changes to [...] on file Legal Sex Male 1:58 AM SENIOR PROJECT MANAGER ENGINEERING Gender Identity Not on file Sexual Orientation Not on file Last Filed Vital Signs Vital Sign Reading Time Taken Comments Blood Pressure 136/62 06/08/2024 1:27 PM SENIOR PROJECT MANAGER ENGINEERING Pulse 79 06/08/2024 1:27 PM SENIOR PROJECT MANAGER ENGINEERING Temperature 36.7 C (98 F) 04/17/2024 7:04 AM SENIOR PROJECT MANAGER ENGINEERING Respiratory Rate 18 06/08/2024 1:27 PM SENIOR PROJECT MANAGER ENGINEERING Oxygen Saturation 95% 06/02/2024 1:00 PM SENIOR PROJECT MANAGER ENGINEERING Inhaled Oxygen Concentration - - Weight 127.3 kg (280 lb 8.6 oz) 06/08/2024 1:27 PM SENIOR PROJECT MANAGER ENGINEERING Height 172.7 cm (5' 8 ) 06/08/2024 1:27 PM SENIOR PROJECT MANAGER ENGINEERING Body Mass Index 42.66 06/08/2024 1:27 PM SENIOR PROJECT MANAGER ENGINEERING Plan of Treatment Not on file Goals Goal Patient Goal Type Associated Problems Recent Progress Patient-Stated? Author CCM Chronic Pain Care Plan Chronic Care Management No change(04/14 11:08 AM SENIOR PROJECT MANAGER ENGINEERING) No Pool Frey RN Note: Problem: Chronic Pain Goals: 1. Minimize further functional decline 2. Maximize quality of life 3. Control pain Strategies: - Activity/exercise program recommendation - Conservative stepwise pain medicine strategy with multi-disciplinary approach - Recommend healthy lifestyle strategies and compensatory methods as needed Medical Devices Implanted Type Area Local Company Hazmat Driver Device Identifier Shelf Expiration Date Model / Serial / Lot Total Knee Left: Knee Medtronic Inc Resolute [place] 3mm 2.1-2.7fr 12mm 140cm Rapid Exchange Radiopaque [id number] - [id number] Implanted:Qty: 1 on 09/03/2021 by Bindu Goins MD at [facility] Medtronic Inc 06/11/2024 [id number] / / Medtronic Inc Resolute [place] 3.5mm 2.1-2.7fr 15mm 140cm Rapid Exchange [id number] - [id number] Implanted:Qty: 1 on 09/03/2021 by Bindu Goins MD at [facility] Medtronic Inc 04/04/2024 [id number] 15UX / / Angio-Seal Vip 6fr Closere Device [id number] - [id number] Implanted:Qty: 1 on 09/03/2021 by Bindu Goins MD at [facility] [employer] Miya 06/02/2022 [id number] / / [employer] Enroute Uber Flex 8mm .065in 40mm 57cm Delivery System Angle Tip Sr-0840-[id number] - [id number] Implanted:Qty: 1 on 01/29/2022 by Neeraj La MD at [facility] Right: Carotid [employer] Inc 08/30/2024 [id number]-[id number] / / [id number] Matilde [employer] Inc 4.5mm 16mm Fix Screw Bone [id number] - [id number] Implanted:Qty: 3 on 06/30/2022 by Fredy Nguyen MD at [facility] N/A: Spine Cervical MATILDE [employer]OM[employer] SP[employer] INC [id number] 6 / / Musculoskeletal Transplant 12.3h93s6aq Frozen Spine 7d Lordotic Trapezoid Spacer Allograft [id number] - [id number] - [id number] Implanted:Qty: 1 on 06/30/2022 by Fredy Nguyen MD at [facility] N/A: Spine Cervical Musculoskeletal Transplant [id number] 03/25/2025 [id number] / [id number] / Musculoskeletal Transplant 12.9r43i5iu Frozen Spine 7d Lordotic Trapezoid Spacer Allograft 040976 - [id number] - [id number] Implanted:Qty: 1 on 06/30/2022 by Fredy Nguyen MD at [facility] N/A: Spine Cervical Musculoskeletal Transplant [id number] 01/03/2025 [id number] / [id number] / Musculoskeletal Transplant 12.5p01t7cl Frozen Spine 7d Lordotic Trapezoid Spacer Allograft [id number] - [id number] - [id number] Implanted:Qty: 1 on 06/30/2022 by Fredy Nguyen MD at [facility] N/A: Spine Cervical Musculoskeletal Transplant [id number] 04/26/2026 [id number] / [id number] / [employer] Inc C-Ervin Maxan 51mm Level 3 Fix Spine Cervical Anterior Plate Bone 14-684523 - [id number] Implanted:Qty: 1 on 06/30/2022 by Fredy Nguyen MD at [facility] N/A: Spine Cervical MATILDE [employer] SP[employer] INC [id number] 1 / / [employer] Inc 4mm 16mm Fix Screw Bone 14-942999 - [id number] Implanted:Qty: 5 on 06/30/2022 by Fredy Nguyen MD at [facility] N/A: Spine Cervical MATILDE [employer]OMET SPINE INC [id number] / / Access Closure Inc Device 10ml 5fr Closure Mynx Control 2 Mode Balloon Catheter [id number] - [id number] Implanted:Qty: 1 on 03/27/2024 by Nabil Harding MD at [facility] Access Closure Inc 01/18/2026 [id number] / / [id number] [facility] Ohiotronic Card Vasc Surgery 4.0 X 18mm [place] Rx Coronary Stent [id number] - [id number] Implanted:Qty: 1 on 04/17/2024 by Nabil Harding MD at [facility] Medtronic Card Vasc Surgery 12/26/2026 [id number] / / [id number] Access Closure Inc Mynx Control 6-7fr 2 Mode Balloon Catheter Sealant Lock Syringe [id number] - [id number] Implanted:Qty: 1 on 04/17/2024 by Nabil Harding MD at [facility] [employer] Inc 01/05/2026 [id number] / / [id number] Procedures Procedure Name Priority Date/Time Associated Diagnosis Comments POCT GLUCOSE Routine 06/08/2024 1:18 PM SENIOR PROJECT MANAGER ENGINEERING Type 2 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 disease, with long-term current use of insulin ([facility]) POCT HEMOGLOBIN A1C Routine 06/08/2024 1 :18 PM SENIOR PROJECT MANAGER ENGINEERING Type 2 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 disease, with long-term current use of insulin ([facility]) ALBUMIN CREATININE RATIO, URINE Routine 06/08/2024 1:18 PM SENIOR PROJECT MANAGER ENGINEERING Type 2 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 disease, with long-term current use of insulin ([facility]) POCT LIPID PANEL Routine 06/08/2024 1:18 AM SENIOR PROJECT MANAGER ENGINEERING Type 2 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 disease, with long-term current use of insulin ([facility]) HM CREATININE Routine 05/31/2024 12:52 PM SENIOR PROJECT MANAGER ENGINEERING COMPREHENSIVE METABOLIC PANEL Routine 05/31/2024 POCT GLUCOSE DEVICE Routine 04/17/2024 1 0:45 AM SENIOR PROJECT MANAGER ENGINEERING PCI SHAYY STENT ADDTN'L COR BRANCH (+) [id number] Routine 04/17/2024 10:23 AM SENIOR PROJECT MANAGER ENGINEERING Coronary artery disease involving [place] coronary artery of [place] heart without angina pectoris PERCUTANEOUS CORONARY LITHROTRIPSY W/ PCI (+) [id number] Routine 04/17/2024 10:23 AM SENIOR PROJECT MANAGER ENGINEERING Coronary artery disease involving [place] coronary artery of [place] heart without angina pectoris CORONARY OCT, 1ST VESSEL Routine 04/17/2024 10:23 AM SENIOR PROJECT MANAGER ENGINEERING Coronary artery disease involving [place] coronary artery of [place] heart without angina pectoris VASCULAR ACCESS US GUIDANCE Routine 04/17/2024 10:23 AM SENIOR PROJECT MANAGER ENGINEERING Coronary artery disease involving [place] coronary artery of [place] heart without angina pectoris SHAYY MAJOR CORONARY Routine 04/17/2024 10 :23 AM SENIOR PROJECT MANAGER ENGINEERING Coronary artery disease involving [place] coronary artery of [place] heart without angina pectoris MODERATE SEDATION FIRST 15MIN 5+ YEAR [address]1801 04/17/2024 9:00 AM SENIOR PROJECT MANAGER ENGINEERING Coronary artery disease involving [place] coronary artery of [place] heart without angina pectoris POCT GLUCOSE DEVICE Routine 04/17/2024 8 :27 AM SENIOR PROJECT MANAGER ENGINEERING TRANSTHORACIC ECHO (TTE) COMPLETE W DOPPLER/CF WO CONTRAST Routine 04/05/2024 4:20 PM SENIOR PROJECT MANAGER ENGINEERING Chronic heart failure with preserved ejection fraction (CMS/HCC) ([facility]) S/P aortic valve replacement with bioprosthetic valve POCT GLUCOSE DEVICE Routine 03/27/2024 1 2:08 PM SENIOR PROJECT MANAGER ENGINEERING CORONARY FLOW VELOCITY (CFR) / INSTATANEOUS FLOW VELOCITY (IFR), 1ST VESSEL Routine 03/27/2024 11:45 AM SENIOR PROJECT MANAGER ENGINEERING Coronary artery disease involving [place] coronary artery of [place] heart without angina pectoris Cardiovascular stress test abnormal RIGHT LEFT HEART CATHETERIZATION CORONARY GRAFT WITH WITHOUT LEFT VENTRICULOGRAPHY ANGIOGRAM Routine 03/27/2024 11:45 AM SENIOR PROJECT MANAGER ENGINEERING Coronary artery disease involving [place] coronary artery of [place] heart without angina pectoris Cardiovascular stress test abnormal VASCULAR ACCESS US GUIDANCE Routine 03/27/2024 11:45 AM SENIOR PROJECT MANAGER ENGINEERING Coronary artery disease involving [place] coronary artery of [place] heart without angina pectoris Cardiovascular stress test abnormal MODERATE SEDATION FIRST 15MIN 5+ YEAR [address] 03/27/2024 10:46 AM SENIOR PROJECT MANAGER ENGINEERING Coronary artery disease involving [place] coronary artery of [place] heart without angina pectoris Cardiovascular stress test abnormal POCT GLUCOSE DEVICE Routine 03/27/2024 7 :13 AM SENIOR PROJECT MANAGER ENGINEERING XR CHEST 1 VIEW ED 03/19/2024 3:19 AM SENIOR PROJECT MANAGER ENGINEERING PRO B-TYPE NATRIURETIC PEPTIDE Add-On 03/19/2024 2:21 AM SENIOR PROJECT MANAGER ENGINEERING EGFR STAT 03/19/2024 2:21 AM SENIOR PROJECT MANAGER ENGINEERING DIFFERENTIAL AUTO STAT 03/19/2024 2:2 1 AM SENIOR PROJECT MANAGER ENGINEERING COMPREHENSIVE METABOLIC PANEL STAT 03/19/2024 2:21 AM SENIOR PROJECT MANAGER ENGINEERING CBC WITH AUTO DIFFERENTIAL STAT 03/19/2024 2:21 AM SENIOR PROJECT MANAGER ENGINEERING RESPIRATORY PATHOGEN PANEL Routine 03/19/2024 2:21 AM SENIOR PROJECT MANAGER ENGINEERING HEPATITIS C AB REFLEX RNA QUANT PCR Routine 06/14/2019 3:47 PM SENIOR PROJECT MANAGER ENGINEERING COLONOSCOPY REPORT 05/18/2014 from Last 3 Months or Most Recently Relevant to Health Maintenance Results * (ABNORMAL) POCT hemoglobin A1c (06/08/2024 1:18 PM SENIOR PROJECT MANAGER ENGINEERING) Pathologist [facility] Hemoglobin A1C, POC 8.3 4.0 - 5.6 % Capillary blood 06/08/2024 1 :18 PM SENIOR PROJECT MANAGER ENGINEERING Terra CRUZ POINT OF CARE TEST ENRIQUE CHINO Final Result * (ABNORMAL) Albumin Creatinine Ratio, Urine (06/08/2024 1:18 PM SENIOR PROJECT MANAGER ENGINEERING) Pathologist [facility] Albumin Ur 68.0 mg/L Comment: Interpretive Data No reference range established. Current interpretive data was last revised 2018. Creatinine Ur 32.5 mg/dL [facility] Comment: Interpretive Data No reference range established. Current interpretive data was last revised 2018. Albumin Creatinine Ratio, Ur 209(H) 1 - 29 mg/g JOSE MIGUEL Urine 06/08/2024 1:18 PM SENIOR PROJECT MANAGER ENGINEERING 06/08/2024 7:31 PM SENIOR PROJECT MANAGER ENGINEERING Terra CRUZ LAB URINE ORDERABLES Fi nal Result JOSE MIGUEL [id number] Department [place] [address] * (ABNORMAL) POCT glucose (06/08/2024 1:18 PM SENIOR PROJECT MANAGER ENGINEERING) Glucose Blood, POC 204 mg/dL Comment:PPG 2.5 Hrs Blood 06/08/2024 1:18 PM SENIOR PROJECT MANAGER ENGINEERING Terra CRUZ POINT OF CARE TEST ORDE RABLES Final Result * (ABNORMAL) POCT lipid panel (06/08/2024 1:18 AM SENIOR PROJECT MANAGER ENGINEERING) Cholesterol, POC 154 mg/dL HDL, POC 25 mg/dL Triglycerides, POC 271 mg/dL LDL Cholesterol POC 75 mg/dL Chol/HDL Ratio, POC 6.2 Non-HDL Cholesterol, POC 129 mg/dL Cholesterol Total, POC 154 mg/dL Capillary blood 06/08/2024 1 :18 AM SENIOR PROJECT MANAGER ENGINEERING Terra CRUZ POINT OF CARE TEST ORDE RABLES Final Result * (ABNORMAL) HM CREATININE (05/31/2024 12:52 PM SENIOR PROJECT MANAGER ENGINEERING) SCRIBED Creatinine 2.16(A) 0.7 - 1.3 mg/dl EXTERNAL LAB SCRIBED eGFR in NonAfrican Palestinian 30 >59 - NA EXTERNAL LAB Blood 05/31/2024 12:5 2 PM SENIOR PROJECT MANAGER ENGINEERING Historical Provider HEALTH MAINTENANCE Edited Result - Final EXTERNAL LAB * Comprehensive metabolic panel (05/31/2024) Blood Impressions EXTERNAL LAB - 05/31/2024 Lab ordered in error us Historical Provider LAB BLOOD ORDERABLES Edit ed Result - Final EXTERNAL LAB * POCT glucose (04/17/2024 10:45 AM SENIOR PROJECT MANAGER ENGINEERING) Glucose, POC 133 70 - 199 mg/dL Blood 04/17/2024 10:4 5 AM SENIOR PROJECT MANAGER ENGINEERING 04/17/2024 10:45 AM SENIOR PROJECT MANAGER ENGINEERING us Nabil Harding MD LAB POCT ORDERABLES - DEVICE Fin al Result JOSE MIGUEL [address] [address] Department [place] [address] * SHAYY MAJOR CORONARY, VASCULAR ACCESS US GUIDANCE, CORONARY OCT, 1ST VESSEL, PERCUTANEOUS CORONARY LITHROTRIPSY W/ PCI (+) [id number], PCI SHAYY STENT ADDTN'L COR BRANCH (+) [id number] (04/17/2024 10:23 AM SENIOR PROJECT MANAGER ENGINEERING) Anatomical Region Laterality Modality X-Ray Angiograph y Addenda Addendum by Nabil Harding MD on 04/17/2024 10:55 AM SENIOR PROJECT MANAGER ENGINEERING CARDIAC CATHETERIZATION AND INTERVENTION REPORT DATE OF [...] from 02/15/2024 reportedly showed LVEF 33%; small, [id number] reversible defect in apical anterior and apical [...] groin hematoma, retroperitoneal bleed, vessel perforation; periprocedural NE, cardiac arrhythmias, stroke, contrast induced nephropathy, and [...] a 4.0 x 18 mm Medtronic sherine [place] zotarolimus eluting stent with good angiographic and IVUS results (proximal optimization into left main) Moderate sedation-CPT code 62077 and beyond Deployment of Mynx vascular closure device MODERATE SEDATION: Midazolam 1 mg , Fentanyl 25 mcg, start time 0927 stop time 1023, total direct [id number] monitoring of conscious sedation 56 minutes (CPT 77563) TRAINED OBSERVER: Abisai Woods RN was trained observer for moderate sedation. ACCESS SITE: Right common femoral artery PROCEDURE: After obtaining informed consent, patient was brought to the earth science laboratory technician and prepped and draped in the usual sterile manner. Time-out and immediate reassessment of the patient was performed. After local anesthesia with lidocaine, right common femoral artery access was taken with micropuncture needle under ultrasound guidance followed by insertion of a 6 [place] sheath. Selective left coronary angiogram was performed using 6 [place] JL4 guide catheter. Estimated blood loss was [...] artery ostium was selectively engaged using 6 [place] JL4 guide catheter. Bivalirudin was used for procedural anticoagulation. Patient has been on dual antiplatelet therapy, today's dose of clopidogrel was given in the earth science laboratory technician. 0.014 luge wire was advanced and the stenosis at the ostium of the LAD was crossed. The guidewire was advanced in the distal LAD. IVUS was performed using a [employer]ers [place] eye IVUS catheter. The reference diameter was [...] Next 4.0 x 18 mm Medtronic sherine [place] ZES was advanced to the target lesion [...] a 4.0 x 18 mm Medtronic sherine [place] ZES will good IVUS and angiographic results. PLAN/RECOMMENDATIONS: Continue dual antiplatelet therapy, statin; and guideline directed medical treatment for CHFrEF. Outpatient Cardiology follow-up. Voice recognition software was used to complete this document, therefore, backend tester variances may occur. Nabil Harding MD, [facility] 04/17/24 Nabil Harding MD CV CARDIAC CATH PROCEDURES Edite d Result - Final * POCT glucose (04/17/2024 8:27 AM SENIOR PROJECT MANAGER ENGINEERING) [facility] Signature Glucose, POC 166 70 - 199 mg/dL Blood 04/17/2024 8:27 AM SENIOR PROJECT MANAGER ENGINEERING 04/17/2024 8:27 AM SENIOR PROJECT MANAGER ENGINEERING Nabil Harding MD LAB POCT ORDERABLES - DEVICE Fin al Result JOSE MIGUEL BOWERS [address] [address] Department [place] [address] * TRANSTHORACIC ECHO (TTE) COMPLETE W DOPPLER/CF WO CONTRAST (04/05/2024 4:20 PM SENIOR PROJECT MANAGER ENGINEERING) Anatomical Region Laterality Modality Ultrasound 04/05/2024 3:53 PM SENIOR PROJECT MANAGER ENGINEERING Narrative 04/06/2024 7:04 AM SENIOR PROJECT MANAGER ENGINEERING [facility] Medical Group Cardiology [address], [place] [address] [address] [facility] [address], [place], [place] [address] P:[phone] P:[phone] Echocardiographic Report Patient Name: TAMIKA AGUILAR D : 1945 Study Date: 04/05/2024 3:53:42 PM Gender: M Tech: Location: [facility] Provider: NABIL HARDING Height(Cm): 160 BSA: [...] Site: Exam was interpreted at [facility]. Left Ventricle: Severe enlargement of left [...] Electronically Signed By: Jose Antonio Walls MD, [facility] 04/06/2024 7:04:01 AM SENIOR PROJECT MANAGER ENGINEERING Procedure Note Jose Antonio Walls MD - 04/06/2024 [facility] Cardiology [address], [place] [address] [address] [facility] [id number], [place] [address] P:[phone] P:[phone] Echocardiographic Report Patient Name: TAMIKA AGUILAR D : 1945 Study Date: 04/05/2024 3:53:42 PM Gender: M Tech: Location: [facility] Provider: NABIL HARDING Height(Cm): 160 BSA: [...] Site: Exam was interpreted at [facility]. Left Ventricle: Severe enlargement of left [...] Electronically Signed By: Jose Antonio Walls MD, FACC 04/06/2024 7:04:01 AM SENIOR PROJECT MANAGER ENGINEERING us Nabil Harding MD CV ECHO PROCEDURES Final Result * POCT glucose (03/27/2024 12:08 PM SENIOR PROJECT MANAGER ENGINEERING) Glucose, POC 157 70 - 199 mg/dL Blood 03/27/2024 12:0 8 PM SENIOR PROJECT MANAGER ENGINEERING 03/27/2024 12:08 PM SENIOR PROJECT MANAGER ENGINEERING Nabil Harding MD LAB POCT ORDERABLES - DEVICE Fin al Result JOSE [facility]IG[facility]EL [address] Department [place] [address] * VASCULAR ACCESS US GUIDANCE, RIGHT LEFT HEART CATHETERIZATION CORONARY GRAFT WITH WITHOUT LEFT VENTRICULOGRAPHY ANGIOGRAM, CORONARY FLOW VELOCITY (CFR) / INSTATANEOUS FLOW VELOCITY (IFR), 1ST VESSEL (03/27/2024 11:45 AM SENIOR PROJECT MANAGER ENGINEERING) Anatomical Region Laterality Modality X-Ray Angiograph y Addenda Addendum by Nabil Harding MD on 03/27/2024 12:11 PM SENIOR PROJECT MANAGER ENGINEERING CARDIAC CATHETERIZATION AND INTERVENTION REPORT DATE OF [...] from 02/15/2024 reportedly showed LVEF 33%; small, ymfw-vm-zbkjeima reversible defect in apical anterior and apical [...] groin hematoma, retroperitoneal bleed, vessel perforation; periprocedural NE, cardiac arrhythmias, stroke, contrast induced nephropathy (elevated risk due to underlying CKD), and . After discussing all the benefits, risks and alternatives, patient was willing to proceed with the procedure. PROCEDURES PERFORMED: Ultrasound-guided right common femoral arterial access Selective left and right coronary angiogram Selective bypass graft Angiography Percutaneous coronary intervention-IFR of ostial left anterior descending artery Moderate sedation-CPT code 86494 and beyond Deployment of Mynx vascular closure device MODERATE SEDATION: Midazolam 1 mg , Fentanyl 25 mcg, start time 1059 stop time 1145, total direct jswx-jk-xnxv monitoring of conscious sedation 46 minutes (CPT 33615) TRAINED OBSERVER: Bernadette Putnam RN was trained observer for moderate sedation. ACCESS SITE: Right common femoral artery PROCEDURE: After obtaining informed consent, patient was brought to the earth science laboratory technician and prepped and draped in the usual sterile manner. Time-out and immediate reassessment of the patient was performed. After local anesthesia with lidocaine, right common femoral artery access was taken with micropuncture needle under ultrasound guidance followed by insertion of a 5 Tuvaluan sheath. Selective left and right coronary angiography was performed using 5 Tuvaluan JL4 and 5F JR4 catheters respectively. Orthogonal views were taken. JR4 diagnostic catheter was used for selective bypass graft Angiography of aortic coronary bypass grafts. Bioprosthetic Aortic valve was not crossed. Estimated blood loss was minimal. All specimens removed. The angiographic and other findings, and details of intervention are given below. FINDINGS: CAMPO CORONARY ARTERIES: LEFT MAIN CORONARY: Large caliber, [...] caliber graft, no significant focal stenosis. The [place] vessel after anastomosis is a medium caliber vessel without significant focal stenosis. SVG TO RPDA: Large caliber graft, kikw-cn-vabrgoyu, 30-50% diffuse plaque is seen in the [...] guidewire was zeroed outside the body. Five Tuvaluan JL4 guide catheter was advanced into the [...] was used to complete this document, therefore, backend tester variances may occur. Nabil Harding MD, [facility] 03/27/24 us Nabil Harding MD CV CARDIAC CATH PROCEDURES Edite d Result - Final * POCT glucose (03/27/2024 7:13 AM SENIOR PROJECT MANAGER ENGINEERING) Glucose, POC 172 70 - 199 mg/dL Blood 03/27/2024 7:13 AM SENIOR PROJECT MANAGER ENGINEERING 03/27/2024 7:13 AM SENIOR PROJECT MANAGER ENGINEERING us Nabil Harding MD LAB POCT ORDERABLES - DEVICE Fin al Result [facility] [address] [address] Department [place] [address] * XR Chest 1 Vw Portable (03/19/2024 3:19 AM SENIOR PROJECT MANAGER ENGINEERING) Anatomical Region Laterality Modality Body, Chest N/A Computed Radiogr aphy 03/19/2024 9:19 AM SENIOR PROJECT MANAGER ENGINEERING Impressions 03/19/2024 9:19 AM SENIOR PROJECT MANAGER ENGINEERING Comparison is made to a prior study dated 06/30/2022. Median sternotomy wires are present. No new focal consolidation, pulmonary edema, or pneumothorax. Possible trace left pleural effusion. No pneumothorax. Cardiomediastinal silhouette is stable. Electronically signed by: Blanca Noriega M.D. Narrative 03/19/2024 9:19 AM SENIOR PROJECT MANAGER ENGINEERING EXAMINATION: XR CHEST 1 VIEW HISTORY: General [...] sult * (ABNORMAL) eGFR (03/19/2024 2:21 AM SENIOR PROJECT MANAGER ENGINEERING) eGFR 24(L) >=60 mL/min/1. 73 m2 Comment: [...] last reviewed 2021. Blood 03/19/2024 2:21 AM SENIOR PROJECT MANAGER ENGINEERING 03/19/2024 2:25 AM SENIOR PROJECT MANAGER ENGINEERING Reese Aguillon MD LAB BLOOD ORDERABLES Final Result [facility] [address] [address] Department [place] [address] * (ABNORMAL) Differential, auto (03/19/2024 2:21 AM SENIOR PROJECT MANAGER ENGINEERING) Neutrophil abs 10.4(H) 1.5 - 6.5 K/cumm Imm gran abs 0.1 0.0 - 0.1 K/cumm [facility] Lymphocyte abs 1.1 0.8 - 3.3 K/cumm [facility] Monocyte abs 1.1(H) 0.2 - 0.8 K/cumm [facility] Eosinophil abs 0.1 0.0 - 0.5 K/cumm [facility] Basophil abs 0.1 0.0 - 0.1 K/cumm [facility] Neutrophil pct 81.5 % [facility] Comment: Interpretive Data Percent cell count reference ranges are not reported, since discordance with absolute values may lead to misinterpretation of CBC data. Current Interpretive Data was last revised on 2017. Imm gran pct 0.5 % [facility] Comment: Interpretive Data Percent cell count reference ranges are not reported, since discordance with absolute values may lead to misinterpretation of CBC data. Current Interpretive Data was last revised on 2017. Lymphocyte pct 8.7 % [facility] Comment: Interpretive Data Percent cell count reference ranges are not reported, since discordance with absolute values may lead to misinterpretation of CBC data. Current Interpretive Data was last revised on 2017. Monocyte pct 8.4 % [facility] Comment: Interpretive Data Percent cell count reference ranges are not reported, since discordance with absolute values may lead to misinterpretation of CBC data. Current Interpretive Data was last revised on 2017. Eosinophil pct 0.5 % [facility] Comment: Interpretive Data Percent cell count reference ranges are not reported, since discordance with absolute values may lead to misinterpretation of CBC data. Current Interpretive Data was last revised on 2017. Basophil pct 0.4 % [facility] Comment: Interpretive Data Percent cell count reference ranges are not reported, since discordance with absolute values may lead to misinterpretation of CBC data. Current Interpretive Data was last revised on 2017. Blood 03/19/2024 2:21 AM SENIOR PROJECT MANAGER ENGINEERING 03/19/2024 2:25 AM SENIOR PROJECT MANAGER ENGINEERING Reese Aguillon MD LAB BLOOD ORDERABLES Final Result [facility] [address] [address] Department [place] [address] * (ABNORMAL) Pro B-type natriuretic peptide (03/19/2024 2:21 AM SENIOR PROJECT MANAGER ENGINEERING) NT-proBNP 481(H) <=450 pg/mL Comment: Interpretive Comments: [...] Revised Date: 2017. Blood 03/19/2024 2:21 AM SENIOR PROJECT MANAGER ENGINEERING 03/19/2024 3:33 AM SENIOR PROJECT MANAGER ENGINEERING Reese Aguillon MD LAB BLOOD ORDERABLES Final Result Performing Organization Address City/State/[facility] Co de Phone Number [facility] [address] [address] Department [place] [address] * Respiratory pathogen panel Nasopharyngeal (03/19/2024 2:21 AM SENIOR PROJECT MANAGER ENGINEERING) Pathologist [facility] Influenza A RNA Not Detected Not Detected Influenza B RNA Not Detected Not Detected [facility] RSV RNA Not Detected Not Detected [facility] COVID-19 RNA Not Detected Not Detected [facility] Coronavirus 229E RNA Not Detected Not Detected [facility] Coronavirus HKU1 RNA Not Detected Not Detected [facility] Coronavirus NL63 RNA Not Detected Not Detected [facility] Coronavirus OC43 RNA Not Detected Not Detected [facility] Adenovirus DNA Not Detected Not Detected [facility] Metapneumovirus RNA Not Detected Not Detected [facility] Rhinovirus/Enterov irus RNA Not Detected Not Detected [facility] Parainfluenza 1 RNA Not Detected Not Detected [facility] Parainfluenza 2 RNA Not Detected Not Detected [facility] Parainfluenza 3 RNA Not Detected Not Detected [facility] Parainfluenza 4 RNA Not Detected Not Detected [facility] B. pertussis DNA Not Detected Not Detected [facility] B. parapertussis DNA Not Detected Not Detected [facility] C. pneumoniae DNA Not Detected Not Detected [facility] M. pneumoniae DNA Not Detected Not Detected [facility] Comment: Interpretive Data The [employer] FilmArray Respiratory Panel (RP2.1) assay is a [...] assay has FDA clearance for testing of MARKETING AND COMMUNICATIONS OFFICER swabs. The performance characteristics of this assay have been determined by [facility]. Current interpretive data was last revised on 2020. Nasopharyngeal 03/19/2024 2: 21 AM SENIOR PROJECT MANAGER ENGINEERING 03/19/2024 2:24 AM SENIOR PROJECT MANAGER ENGINEERING Narrative [facility] - 03/19/2024 3:21 AM SENIOR PROJECT MANAGER ENGINEERING Is the Patient experiencing symptoms consistent with COVID?->Yes Surveillance testing for transplant patient?->No Reese Aguillon MD LAB MICROBIOLOGY - GENERAL ORDERABLES Final Result [facility] [address] [address] Department [place] [address] CH * (ABNORMAL) CBC with auto differential (03/19/2024 2:21 AM SENIOR PROJECT MANAGER ENGINEERING) WBC 12.7(H) 3.8 - 9.9 K/cumm Hgb 13.1 13.0 - 17.5 g/dL [facility] Hct 40.1 38.9 - 50.3 % [facility] Plt 186 150 - 400 K/cumm [facility] MPV 10.7 9.1 - 12.3 fL [facility] RBC 4.47 4.30 - 5.80 M/cumm [facility] MCV 89.7 81.3 - 96.4 fL [facility] MCH 29.3 27.1 - 33.3 pg [facility] MCHC 32.7 32.3 - 35.7 g/dL [facility] RDW CV 14.6 11.1 - 14.9 % [facility] RDW SD 47.8 35.7 - 48.1 fL [facility] NRBC abs 0.00 0.00 - 0.01 K/cumm [facility] Blood 03/19/2024 2:21 AM SENIOR PROJECT MANAGER ENGINEERING 03/19/2024 2:25 AM SENIOR PROJECT MANAGER ENGINEERING us Reese Aguillon MD LAB BLOOD ORDERABLES Final Result [facility] [address] [address] Department [place] [address] * (ABNORMAL) Comprehensive metabolic panel (03/19/2024 2:21 AM SENIOR PROJECT MANAGER ENGINEERING) Sodium 141 135 - 145 mmol/L Potassium, [...] Units/L [facility] Blood 03/19/2024 2:21 AM SENIOR PROJECT MANAGER ENGINEERING 03/19/2024 2:25 AM SENIOR PROJECT MANAGER ENGINEERING Reese Aguillon MD LAB BLOOD ORDERABLES Final Result [facility] [address] [place] [place] [address] * Hepatitis C Antibody Reflex Hepatitis C RNA Quantitative PCR Blood (06/14/2019 3:47 PM SENIOR PROJECT MANAGER ENGINEERING) Hep C Ab Negative Negative [facility] Blood specimen (specimen) 06/14/2019 3:47 PM SENIOR PROJECT MANAGER ENGINEERING 06/14/2019 8:03 PM SENIOR PROJECT MANAGER ENGINEERING Notinfile Unknown LAB MICROBIOLOGY - GENERAL ORD ERABLES Final Result [facility] [address] Department [place] [address] * COLONOSCOPY REPORT (05/18/2014) Anatomical Region Laterality Modality Other Narrative 05/18/2014 Ordered by an unspecified provider. Historical Provider GI PROCEDURE ORDERABLES F inal Result from Last 3 Months or Most Recently Relevant to Health Maintenance Insurance [employer] MEDICARE PPO [employer] MEDICARE P[employer] MEDICARE PPO Advance Directives For more information, please contact: [phone] * Full Code (Latest Code Status on File) Date Activated Date Inactivated Comments 06/30/2022 6:44 PM 07/03/2022 5:32 PM * Full Code Date Activated Date Inactivated Comments 06/30/2022 6:39 PM 06/30/2022 6:44 PM * Full Code Date Activated Date Inactivated Comments 01/29/2022 2:14 PM 01/30/2022 6:06 PM * Full Code Date Activated Date Inactivated Comments 09/03/2021 12:10 PM 09/04/2021 7:37 PM Care Teams Hand Flatwork Finisher Relationship Specialty Start Date End Date Rafa Chavez DO [address] [facility] [address] [place] [address] PCP - General Internal Medicine 06/01/24 Yfn Gill MD Referring Physician Nephrology 01/22/22 Aguila Chris MD Consulting Physician Cardiology 01/22/22 [place] [address] [address] Consulting Physician Endocrinology Diabetes & Metabolism 01/22/22 Neeraj La MD [address] [facility] [address] [place] [address] Surgeon Vascular Surgery 01/30/22
--- OUTSIDE RECORDS SUMMARY | 2024-06-14 12:21 | XMS_ITS | Clinical Summary ---
Author Organization [facility] [employer] Address [address] [facility] [place] [address] Care Team Providers Care Packing Attendant Name Role Phone Arnel Gonzalez Primary Care Provider [phone] Source Comments [facility] [employer],non-[facility] Affiliates and Associated Physician Practices is amultiple site organization consisting of ambulatory clinics and hospital sitesin [place], [place], [place]. This disclosure is being madepursuant to the Care Everywhere program and may not contain all information available regarding this patient. Last updated 18.[facility] [employer] Allergies Active Allergy Reactions Criticality Noted Date [...] Comments Blood Pressure 136/70 05/05/2021 1:09 PM CONTINUOUS IMPROVEMENT DIRECTOR Pulse 76 05/05/2021 1:09 PM CONTINUOUS IMPROVEMENT DIRECTOR Temperature - - Respiratory Rate 14 05/05/2021 1:09 PM CONTINUOUS IMPROVEMENT DIRECTOR Oxygen Saturation 98% 05/05/2021 1:09 PM CONTINUOUS IMPROVEMENT DIRECTOR Inhaled Oxygen Concentration - - Weight 121.1 kg (267 lb) 05/05/2021 1:09 PM CONTINUOUS IMPROVEMENT DIRECTOR Height 172.7 cm (5' 8 ) 05/05/2021 1:09 PM CONTINUOUS IMPROVEMENT DIRECTOR Body Mass Index 40.6 05/05/2021 1:09 PM CONTINUOUS IMPROVEMENT DIRECTOR Plan of Treatment Health Maintenance Due Date [...] age to complete this topic Care Teams Packing Attendant Relationship Specialty Start Date End Date Arnel Gonzalez DO [address] [facility] [address] [place], [place] [id number] PCP - General 01/03/21
--- OUTSIDE RECORDS SUMMARY | 2024-06-14 12:21 | XMS_ITS | Encounter Summary ---
Author Organization [facility] Address [address] [place] [address] Phone Care Team Providers Care Weigher And Crusher Name Role Phone Arnel Gonzalez MD Primary Care Provider [phone] Yfn Gill MD Unavailable [phone] Aguila Chris MD Unavailable [phone] Malcolm Castro MD Unavailable [phone] Neeraj La MD Unavailable [phone] Armand Howard RN Unavailable Unavaila August Hsu Primary Care Provider Miguel Torres DO Primary Care Provider [phone] Rafa Chavez DO Primary Care Provider [phone] Encounter Details Date Type Department Care Team [...] on file Legal Sex Male 1:58 AM WOUND CARE CENTER CONSULTANT Gender Identity Not on file Sexual [...] COVID: Suspected 05/05/2022 05/05/2022 05/05/2022 12:26 PM WOUND CARE CENTER CONSULTANT COVID: Suspected 05/05/2022 05/05/2022 05/05/2022 8:19 PM WOUND CARE CENTER CONSULTANT COVID: Suspected 03/19/2024 03/19/2024 03/19/2024 3:22 AM WOUND CARE CENTER CONSULTANT documented as of this encounter Care Teams Weigher And Crusher Relationship Specialty Start Date End Date Arnel Gonzalez MD [address] [place] [address] PCP - General 07/19/13 07/05/23 August Triana PA [address] [place] [address] [address] [place] [address] PCP - General Physician Timber Buyer 07/06/23 01/16/24 Miguel Torres DO [address] [place] [address] [place] [address] PCP - General Internal Medicine 01/17/24 05/31/24 Rafa Chavez DO [address] [place] [address] [address] PCP - General Internal Medicine 06/01/24 Yfn Gill MD [address] [facility] [address] [place] [address] Referring Physician Nephrology 01/22/22 Aguila Chris MD [address] [facility] [address] [place] [address] Consulting Physician Cardiology 01/22/22 [place] [address] [address] Consulting Physician Endocrinology Diabetes & Metabolism 01/22/22 Neeraj La MD [address] [facility] [address] [place] [address] Surgeon Vascular Surgery 01/30/22 Armand Howard, RN Registered Nurse 06/30/22 07/02/22 documented as of this encounter
--- NOTE | 2024-06-14 12:32 | ECG_ITS ---
Test Date: 2024-06-14 12:46:36 Measurements Intervals Pingree Rate: 118 P: 47 VT: 161 QRS: -66 QRSD: 146 T: 86 QT: 350 QTc: 491 Interpretive Statements SINUS TACHYCARDIA WITH OCCASIONAL VENTRICULAR PREMATURE COMPLEXES LEFT BUNDLE BRANCH BLOCK BASELINE ARTIFACT- I, II, III, AVR, AVL, AVF ABNORMAL ECG No previous ECG available for comparison Electronically Signed On 06-14-2024 13:23:50 FINAL FINISHER by Angel Mejia D.O.
--- NOTE | 2024-06-14 12:38 | ED_ITS ---
HPI - Weakness General Chief complaint: Weakness Stated complaint: weakness, falls x2, hematuria Time Seen by Provider: 06/14/24 12:26 History of Present Illness HPI Narrative: Patient presents with generalized weakness, he feels like his legs keep going out from under him, he denies any injuries or head trauma, he states that he was able to feel his legs giving out and he was able to come to a gentle stop on the ground. He has noticed blood in his urine. Denies any chest pain, shortness of breath, nausea vomiting, fevers or chills Related Data Home Medications ?Medication ?Instructions ?Recorded ?Confirmed ?Last Taken ?Type aspirin 81 mg tablet,delayed 81 mg PO DAILY 04/14/19 03/23/24 08/12/21 History release (Adult Aspirin Regimen) multivitamin (Multiple Vitamins 1 tablet PO DAILY 06/28/19 03/23/24 08/12/21 History tablet) alpha lipoic acid 600 mg capsule 600 mg PO DAILY 12/12/20 03/23/24 08/12/21 History hydralazine 50 mg tablet 50 mg PO TID 12/12/20 03/23/24 08/12/21 History bumetanide 2 mg tablet 2 mg PO BID 07/29/21 03/23/24 08/12/21 History nitroglycerin 400 mcg/spray 1 spray sublingual Q5MIN chest pain 07/29/21 03/23/24 07/29/21 10:00 History translingual clopidogrel 75 mg tablet 75 mg PO DAILY 09/30/21 03/23/24 Unknown History amitriptyline 25 mg tablet 25 mg PO DAILY 03/23/24 03/23/24 Unknown History sacubitril 49 mg-valsartan 51 mg 1 tablet PO DAILY 03/23/24 03/23/24 Unknown History tablet (Entresto) semaglutide 0.25 mg or 0.5 mg (2 0.5 mg subcut WEEKLY 03/23/24 03/23/24 Unknown History mg/3 mL) subcutaneous pen injector (Ozempic) atorvastatin 40 mg tablet (Lipitor) 40 mg PO DAILY 06/01/24 Unknown History furosemide 40 mg tablet (Lasix) 40 mg PO QAM 06/01/24 Unknown History metoprolol succinate 50 mg 50 mg PO DAILY 06/01/24 Unknown History tablet,extended release 24 hr vericiguat 10 mg tablet (Verquvo) 10 mg PO DAILY 06/01/24 Unknown History Allergies Allergy/AdvReac Type Severity Reaction Status Date / Time codeine AdvReac Intermediate Itching Verified 04/10/24 10:51 tramadol AdvReac Mild Nausea And Verified 04/10/24 10:51 Vomiting Review of Systems 2 Review of Systems: All systems reviewed & are unremarkable except as noted in HPI and below PMFSH Past Medical History Medical History (Updated 06/14/24 @ 17:01 by Grisel Skelton MD) 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, <= 40%) Blindness of left eye Obstructive sleep apnea treated with BiPAP Diabetes Arthritis BPH (benign prostatic hyperplasia) Chronic GERD HTN (hypertension) Hypercholesterolemia CAD (coronary artery disease) CHF (congestive heart failure) Echocardiogram June 2021 EF of 55-60%, nuclear stress test demonstrated normal perfusion but enlarged left ventricle in declining EF to 42%, LORENE performed 07/30/2021 to further determine valve pathology demonstrated mild left ventricular systolic dysfunction with EF of 45-50% and [id number] left atrial enlargement with bioprosthetic valve without significant findings Obesity Type 2 diabetes mellitus Hyperlipidemia Surgical History Surgical History History of neck surgery History of cardiac catheterization (08/2021) Moderate pulmonary hypertension, patent vein grafts to the obtuse marginal and RPDA, complex high-grade stenosis to the proximal LAD beginning at the origin of the 1st septal branch and extending about 30 mm distal into the LAD crossing over the diagonal branches as well Hx of LASIK History of transurethral resection of prostate (12/2020) History of aortic valve replacement with bioprosthetic valve (10/2013) Georgina goodwin seen valve S/P CABG (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) Saphenous vein graft to obtuse marginal, saphenous vein graft to PDA Family History Family History Mother Family history of heart disease in male family member before age 55 Acute myocardial infarction Diabetes mellitus Father Cancer Sibling Diabetes mellitus Sibling Hypertension Social History Social History Smoking packs per day: 4 Smoking cigarettes per day: 80.0 Years smoked: 30 Smoking pack-years: 120.00 Smoking status: Former smoker Tobacco type: cigarettes Second hand tobacco smoke exposure: Yes Smoking end date: 05/03/86 Alcohol intake: former Drinks per week: 3 Substance use: never Substance use type: does not use Do You Feel Safe in your Home?: Yes Lack of Transportation: No Lack of Food: Never True Current Housing: I Have Housing Concerned About Future Housing: No Difficulty Paying Gas/Electric Bills: No Difficulty Paying for Meds: No Currently Unemployed: No Education: Trade/Vocational Certificate Difficulty w/ Childcare or Family Care: No Living arrangements: with family Additional living arrangements comments: He lives at home with his of 42 years. They raised 4 children. 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 Gender identity (if verbalized by the patient): Male Spiritual care concerns: No Exam 2 Narrative: EXAMINATION OF ORGAN SYSTEMS/BODY AREAS: Constitutional: Vital signs per nursing GENERAL:[No acute distress, non-toxic appearing.] HEAD: Normal with no signs of head trauma. EYES: EOMI, conjunctiva normal ENT: Hearing grossly intact LUNGS: Nonlabored breathing. HEART: Tachycardic ABD: [Soft], [nontender to palpation] EXT: Normal range of motion SKIN: [No rashes or lesions.] NEURO: [Alert. No gross focal sensory or strength deficits.] PSYCH: Normal affect Course Vital Signs Vital signs: Vital Signs Temperature 99.3 F 06/14/24 11:49 Pulse Rate 57 L 06/14/24 11:49 Respiratory Rate 18 06/14/24 11:49 Blood Pressure 165/76 H 06/14/24 11:49 Pulse Oximetry 94 06/14/24 11:49 Oxygen Delivery Room Air 06/14/24 11:49 Temperature 103.4 F H 06/14/24 16:08 Pulse Rate 118 H 06/14/24 16:11 Respiratory Rate 21 H 06/14/24 15:30 Blood Pressure 154/135 H 06/14/24 15:16 Pulse Oximetry 89 L 06/14/24 15:30 Oxygen Delivery Room Air 06/14/24 12:30 MDM - Weakness MDM Narrative Medical decision making narrative: The family at bedside helping with history. Patient presents with some hematuria and generalized weakness, per family he has also been confused and very tired since yesterday. On exam here he is tachycardic slightly low on oxygen, though he has not taken his home medications yet. He does have history of CHF so before extra fluids I did obtain chest x-ray to ensure no volume overload, just shows cardiomegaly with pulmonary edema. He is given judicious amount of fluids, small dose of his beta-elaine. UA does show UTI. He does start spiking a fever, Tylenol ordered, no obvious other source of infection, urine cultures sent, I did check prior urine cultures did not see any obvious susceptibilities so will start him on ceftriaxone here. Discussed with family at bedside, he has been more weak than usual and falling so they would like him to be admitted at this time and I feel this is quite reasonable, discussed with hospitalist for admission. On re-evaluation, improved vital signs and heart rate. Lab Data 06/14/24 12:56 06/14/24 12:56 Labs: Lab Results 06/14/24 06/14/24 06/14/24 Range/Units 12:31 12:56 14:27 WBC 14.0 H (4.5-10.0) K/mm3 RBC 4.43 L (4.6-6.20) M/mm3 Hgb 12.8 L (14.0-18.0) g/dL Hct 39.4 L (42.0-52.0) % MCV 88.9 (80-100) fl MCH 28.9 (26-34) pg MCHC 32.5 (32-36) g/dl RDW 14.2 (11.5-14.5) % Plt Count 161 (150-375) k/mm3 MPV 10.5 H (7.4-10.4) fl Immature Gran % (Auto) 0.5 (0-0.5) % Neut % (Auto) 83.1 H (45.5-73.1) % Lymph % (Auto) 8.9 L (18.3-44.2) % Whitley % (Auto) 6.9 (2.6-8.5) % Eos % (Auto) 0.2 (0-4.4) % Baso % (Auto) 0.4 (0.2-1.2) % Lymph # (Auto) 1.25 (0.9-3.2) K/mm3 Whitley # (Auto) 1.0 H (0.1-0.6) K/mm3 Eos # (Auto) 0.0 (0-0.3) K/mm3 Baso # (Auto) 0.1 (0.0-0.1) K/mm3 Abs Immat Gran (auto) 0.07 H (0.00-0.031) K/mm3 Absolute Neuts (auto) 11.6 H (1.3-6.7) K/mm3 Absolute Nucleated RBC 0.000 (0.0-0.012) K/mm3 Nucleated RBC % 0.0 (0.0-0.2) % Sodium 137 (137-145) mmol/L Potassium 3.3 L (3.4-5.0) mmol/L Chloride 94 L (98-107) mmol/L Carbon Dioxide 30 (22-30) mmol/L Anion Gap 13 H (4-12) mmol/L BUN 38 H (9-20) mg/dL Creatinine 2.31 H (0.7-1.3) mg/dL Estim Creat Clear Calc 30 ml/min Estimated GFR 27 L (59 - ) Glucose 377 H (65-110) mg/dL Calcium 8.7 (8.4-10.2) mg/dL Total Bilirubin 1.0 (0.2-1.3) mg/dL AST 24 (17-59) U/L ALT 26 (6-50) U/L Alkaline Phosphatase 83 (38-126) U/L Total Protein 7.0 (6.3-8.2) g/dL Albumin 4.2 (3.5-5.1) g/dL Urine Color Yellow (Yellow) Urine Appearance Cloudy H (Clear) Urine pH 6.5 (5.0-9.0) Ur Specific [place] 1.025 (1.001-1.035) Urine Protein 3+ H (Negative) mg/dL Urine Glucose (UA) 3+ H (Negative) mg/dL Urine Ketones Negative (Negative) mg/dL Ur Blood (Man) 3+ H (Negative) Urine Nitrate Negative (Negative) Urine Bilirubin Negative (Negative) Urine Urobilinogen 0.2 (<2.0) mg/dL Leukocyte Esterase Rfl 1+ H (Negative) JUAN/UL Urine RBC 21-50 H (0-2) /hpf Urine WBC >100 H (0-3) /hpf Ur Squamous Epith Cells None seen (Few) /hpf Urine Bacteria 4+ H /hpf Urine Casts 0-2 Influenza A (RT-PCR) Negative (Negative) Influenza B (RT-PCR) Negative (Negative) RSV (RT-PCR) Negative (Negative) SARS-CoV-2 RNA (RT-PCR) Negative (Negative) Critical Care Time Critical Care Time Critical Care Time: Yes Total Critical Care Time: 31 Discharge Plan Discharge Clinical Impression: Acute UTI, Sepsis, Delirium Patient Disposition: Still a Patient Condition: Serious Patient Language: Citizen Of [place] Prescriptions: No Action amitriptyline 25 mg tablet 25 mg PO DAILY Entresto 49-51 mg tablet 1 tablet PO DAILY Ozempic 0.25 mg or 0.5 mg (2 mg/3 mL) pen injector 0.5 mg subcut WEEKLY Rx Instructions: for 4 weeks aspirin [Adult Aspirin Regimen] 81 mg tablet,delayed release (DR/EC) 81 mg PO DAILY multivitamin [Multiple Vitamins] Tablet 1 tablet PO DAILY calcitriol 0.25 mcg capsule 0.25 mcg PO 3XW Qty: 60 3RF Rx Instructions: administer after dialysis on dialysis days hydralazine 50 mg tablet 50 mg PO TID alpha lipoic acid 600 mg Capsule 600 mg PO DAILY bumetanide 2 mg tablet 2 mg PO BID nitroglycerin 400 mcg/spray [place],Non-Aerosol 1 spray SUBLINGUAL Q5MIN clopidogrel 75 mg tablet 75 mg PO DAILY azelastine 137 mcg (0.1 %) aerosol,spray 2 spray intranasal Q12H Qty: 30 2RF Rx Instructions: administer into each nostril betamethasone valerate 0.1 % cream 1 applic topical BID Qty: 15 1RF hydroxyzine HCl 10 mg tablet 10 mg PO TID PRN (Reason: anxiety) Qty: 60 1RF hydrochlorothiazide 25 mg tablet 25 mg PO DAILY Qty: 90 3RF amlodipine 10 mg tablet See Rx Instructions .ROUTE .COMPLEX Qty: 90 3RF Dose Instruction: TAKE 1 TABLET EVERY DAY Rx Instructions: TAKE 1 TABLET EVERY DAY finasteride 5 mg tablet 5 mg PO DAILY Qty: 90 3RF allopurinol 300 mg tablet 300 mg PO DAILY Qty: 90 3RF Humulin R U-500 (Conc) Kwikpen 500 unit/mL (3 mL) insulin pen See Rx Instructions subcut TID Qty: 20 3RF Rx Instructions: sliding scale subcutaneously three times a day as directed up to 300U daily omeprazole 20 mg capsule,delayed release(DR/EC) 20 mg PO DAILY Qty: 90 3RF fluticasone propionate 50 mcg/actuation spray,suspension 2 spray intranasal DAILY PRN (Reason: nasal congestion) Qty: 48 3RF Rx Instructions: administer into each nostril dapagliflozin propanediol [Farxiga] 10 mg tablet 10 mg PO DAILY Qty: 90 3RF terazosin 10 mg capsule 10 mg PO DAILY Qty: 90 3RF doxycycline hyclate 100 mg tablet 100 mg PO BID Qty: 20 0RF lidocaine 5 % adhesive patch,medicated 1 patch topical DAILY Qty: 30 2RF Rx Instructions: leave on most painful area for up to 12 hrs ergocalciferol (vitamin D2) 1,250 mcg (50,000 unit) capsule See Rx Instructions .ROUTE .COMPLEX Qty: 13 3RF Dose Instruction: TAKE 1 CAPSULE ONE TIME WEEKLY Rx Instructions: TAKE 1 CAPSULE ONE TIME WEEKLY potassium chloride [Klor-Con 10] 10 mEq tablet extended release 10 meq PO DAILY Qty: 30 8RF furosemide [Lasix] 40 mg tablet 40 mg PO QAM Verquvo 10 mg tablet 10 mg PO DAILY Rx Instructions: must administer with a meal/food metoprolol succinate 50 mg tablet extended release 24 hr 50 mg PO DAILY atorvastatin [Lipitor] 40 mg tablet 40 mg PO DAILY potassium chloride [Klor-Con M10] 10 mEq tablet,ER particles/crystals 10 meq PO DAILY Qty: 10 0RF Follow-up/Referrals: Rafa Chavez DO [Primary Care Provider] -
--- OUTSIDE RECORDS SUMMARY | 2024-06-14 12:42 | XMS_ITS | Referral Summary ---
Author Organization [facility] Address [address] [place] [address] Care Team Providers Care Material Assistant Name Role Phone Yfn Gill MD Unavailable [phone] Aguila Chris MD Unavailable [phone] Malcolm Castro MD Unavailable [phone] Neeraj La MD Unavailable [phone] Rafa Chavez DO Primary Care Provider [phone] Encounters Date Type Department Care Team Description 06/13/2024 Orders Only [facility] Medical Group Diabetes and Endocrinology [facility] [place] [address] ProviderNelson MD 06/08/2024 1:18 PM ALLIANCE MANAGER - 06/08/2024 11:59 PM ALLIANCE MANAGER Hospital Encounter [facility] [id number] [place] [id number] Type 2 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 disease, with long-term current use of insulin (HCC) Discharge Disposition: Discharge to home or self care 06/08/2024 1:15 PM ALLIANCE MANAGER Office Visit [facility] [address] [facility] [address] [address] Terra Joiner PA Type 2 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 disease, with long-term current use of insulin (HCC) (Primary Dx); Hypertension associated with diabetes (HCC); Mixed diabetic hyperlipidemia associated with type 2 diabetes mellitus (CMS/HCC) (HCC) 06/02/2024 1:00 PM ALLIANCE MANAGER Office Visit [facility] Cardiology [address] [place] [address] [place] [phone] Malu Solomon NP Edema, lower extremity (Primary Dx); Chronic combined systolic and diastolic CHF (congestive heart failure) (CMS/HCC) (HCC); Stage 3b chronic kidney disease (HCC) 06/01/2024 Telephone [place] [address] [place] [phone] Nabil Harding MD 05/12/2024 Documentation [place] [address] [place] [phone] Shila Bowers MA 05/10/[address] [place] [phone] Nabil Harding MD Medication Problem 05/10/2024 8:30 AM ALLIANCE MANAGER Office Visit [place] [address] [place] [phone] Nabil Harding MD Coronary artery disease involving [place] coronary artery of [place] heart without angina pectoris (Primary Dx); S/P CABG x 2; Cardiomyopathy, ischemic; S/P angioplasty with stent; Chronic systolic congestive heart failure (CMS/HCC) ([facility]); S/P aortic valve replacement with bioprosthetic valve; Hypertension associated with diabetes ([facility]); Stage 3b chronic kidney disease ([facility]); Morbid obesity with BMI of 40.0-44.9, adult ([facility]); MARY on CPAP 04/17/[address] [place] [phone] Nabil Harding MD 04/17/2024 9:30 AM ALLIANCE MANAGER - 04/17/2024 11:30 AM [facility] Surgery [facility] Cardiac Catheterization Lab [address] [place] [address] Nabil Harding MD PCI SHAYY MAJOR CORONARY [id number] - [id number] 04/17/2024 6:10 AM ALLIANCE MANAGER - 04/17/2024 3:36 PM ALLIANCE MANAGER Hospital Encounter [facility] Cardiac Catheterization Lab [address] [place] [address] Nabil Harding MD Coronary artery disease involving [place] coronary artery of [place] heart without angina pectoris Discharge Disposition: Discharge to home or self care 04/13/2024 Telephone [facility] Cardiology [address] [place] [phone] Nabil Harding MD 04/10/2024 Telephone [facility] Cardiology [address] [place] [phone] Nabil Harding MD 04/05/2024 3:00 PM ALLIANCE MANAGER Ancillary Procedure [facility]iology [address] [place] [phone] Chronic heart failure with preserved ejection fraction (CMS/HCC) ([facility]); S/P aortic valve replacement with bioprosthetic valve 03/27/2024 Telephone [facility]iology [address] [place] [phone] Nabil Harding MD lab order 03/27/2024 10:30 AM ALLIANCE MANAGER - 03/27/2024 12:00 PM ALLIANCE MANAGER Surgery [facility] Cardiac Catheterization Lab [address] [place] [address] Nabil Harding MD RIGHT LEFT HEART CATHETERIZATION WITH CORONARY ANGIOGRAPHY GRAFT AND WITH OR WITHOUT LEFT VENTRICULOGRAPHY [id number] 03/27/2024 6:31 AM ALLIANCE MANAGER - 03/27/2024 3:17 PM ALLIANCE MANAGER Hospital Encounter [facility] Cardiac Catheterization Lab [address] [place] [address] Nabil Harding MD Coronary artery disease involving [place] coronary artery of [place] heart without angina pectoris; Cardiovascular stress test abnormal Discharge Disposition: Discharge to home or self care 03/19/2024 2:54 AM ALLIANCE MANAGER - 03/19/2024 6:44 AM ALLIANCE MANAGER Emergency [facility] Emergency Department [address] [place] [address] Reese Aguillon MD Generalized weakness (Primary Dx); [...] 1 tablet (300 mg total) by mouth longitudinal float operator before breakfast 0 Active alpha lipoic [...] (06/09/2022): Added automatically from request for surgery [id number] Carotid stenosis, right 01/07/2022 Overview (01/07/2022): Added automatically from request for surgery [id number] Assessment & Plan (04/19/2023 1:00 PM ALLIANCE MANAGER): Status post TCAR. Stent patent. Continue anti-platelet therapy follow-up 6 months. Assessment & Plan (03/12/2022 5:16 PM ALLIANCE MANAGER): Impression: Patient is status post right TCAR. [...] (02/05/2020): Added automatically from request for surgery [id number] Hx of colonic polyps 10/10/2019 Overview (10/10/2019): Added automatically from request for surgery [id number] History of colon polyps 07/10/2019 Overview (07/10/2019): Added automatically from request for surgery [id number] Hypertension associated with diabetes 06/29/2019 Assessment & Plan (06/08/2024 2:36 PM ALLIANCE MANAGER): Chronic problem, Controlled on metoprolol, Entresto, HCTZ, bumetanide, hydralazine, amlodipine. No changes. Assessment & Plan (04/19/2023 1:00 PM ALLIANCE MANAGER): Hypertension chronic controlled. Continue current medical management Assessment & Plan (01/14/2022 9:31 AM CDT): Hypertension chronic and controlled. Continue current medical therapy. Chronic heart failure with p reserved ejection fraction ([facility]) 06/29/2019 Morbid obesity with BMI of 40.0-44.9, [...] actual BMI) Coronary artery disease invo lving [place] coronary artery of [place] heart without angina pectoris 05/06/2015 Overview (08/07/2016): Coronary artery disease involving [place] coronary artery of [place] heart without angina pectoris Assessment & Plan (01/07/2022 3:00 PM CDT): Stable. Continue medical therapy. Mixed diabetic hyperlipidemi a associated with type 2 diabetes mellitus ([facility]) 05/06/2015 Overview (08/07/2016): Type 2 diabetes mellitus with complication Assessment & Plan (06/08/2024 2:36 PM ALLIANCE MANAGER): Chronic problem. On statin therapy, no changes. Assessment & Plan (04/19/2023 1:00 PM ALLIANCE MANAGER): Hyperlipidemia chronic and controlled. Continue current medical [...] complication Assessment & Plan (06/08/2024 2:37 PM ALLIANCE MANAGER): Chronic problem, improving but not at goal. [...] week so we can look at his Britely Dona data and advise on changes to [...] on file Legal Sex Male 1:58 AM ALLIANCE MANAGER Gender Identity Not on file Sexual Orientation Not on file Last Filed Vital Signs Vital Sign Reading Time Taken Comments Blood Pressure 136/62 06/08/2024 1:27 PM ALLIANCE MANAGER Pulse 79 06/08/2024 1:27 PM ALLIANCE MANAGER Temperature 36.7 C (98 F) 04/17/2024 7:04 AM ALLIANCE MANAGER Respiratory Rate 18 06/08/2024 1:27 PM ALLIANCE MANAGER Oxygen Saturation 95% 06/02/2024 1:00 PM ALLIANCE MANAGER Inhaled Oxygen Concentration - - Weight 127.3 kg (280 lb 8.6 oz) 06/08/2024 1:27 PM ALLIANCE MANAGER Height 172.7 cm (5' 8 ) 06/08/2024 1:27 PM ALLIANCE MANAGER Body Mass Index 42.66 06/08/2024 1:27 PM ALLIANCE MANAGER Plan of Treatment Not on file Goals Goal Patient Goal Type Associated Problems Recent Progress Patient-Stated? Author CCM Chronic Pain Care Plan Chronic Care Management No change(04/14 11:08 AM ALLIANCE MANAGER) No Pool Frey RN Note: Problem: Chronic Pain Goals: 1. Minimize further functional decline 2. Maximize quality of life 3. Control pain Strategies: - Activity/exercise program recommendation - Conservative stepwise pain medicine strategy with multi-disciplinary approach - Recommend healthy lifestyle strategies and compensatory methods as needed Medical Devices Implanted Type Area Fur Finisher Seamstress Device Identifier Shelf Expiration Date Model / Serial / Lot Total Knee Left: Knee Medtronic Inc Resolute [place] 3mm 2.1-2.7fr 12mm 140cm Rapid Exchange Radiopaque [id number] - [id number] Implanted:Qty: 1 on 09/03/2021 by Bindu Goins MD at [facility] Medtronic Inc 06/11/2024 [id number] / / Medtronic Inc Resolute [place] 3.5mm 2.1-2.7fr 15mm 140cm Rapid Exchange [id number] - [id number] Implanted:Qty: 1 on 09/03/2021 by Bindu Goins MD at [facility] Medtronic Inc 04/04/2024 [id number] / / Angio-Seal Vip 6fr Closere Device [id number] - [id number] Implanted:Qty: 1 on 09/03/2021 by Bindu Goins MD at [facility] [employer] Miya 06/02/2022 [id number] / / Globial Inc Enroute Uber Flex 8mm .065in 40mm 57cm Delivery System Angle Tip [id number]-0840-Cs - [id number] Implanted:Qty: 1 on 01/29/2022 by Neeraj La MD at [facility] Right: Carotid [employer] Inc 08/30/2024 [id number]-0840- [id number] / / [id number] Matilde Biomet Inc 4.5mm 16mm Fix Screw Bone [id number] - [id number] Implanted:Qty: 3 on 06/30/2022 by Fredy Nguyen MD at [facility] N/A: Spine Cervical MATILDE BIOMET SPINE INC [id number] 6 / / Musculoskeletal Transplant 12.3p31r8bv Frozen Spine 7d Lordotic Trapezoid Spacer Allograft [id number] - [id number] - [id number] Implanted:Qty: 1 on 06/30/2022 by Fredy Nguyen MD at [facility] N/A: Spine Cervical Musculoskeletal Transplant [id number] 03/25/2025 [id number] / [id number] / Musculoskeletal Transplant 12.9s01s7sq Frozen Spine 7d Lordotic Trapezoid Spacer Allograft 174121 - [id number] - [id number] Implanted:Qty: 1 on 06/30/2022 by Fredy Nguyen MD at [facility] N/A: Spine Cervical Musculoskeletal Transplant [id number] 01/03/2025 [id number] / [id number] / Musculoskeletal Transplant 12.8c42w4jd Frozen Spine 7d Lordotic Trapezoid Spacer Allograft 195138 - [id number] - [id number] Implanted:Qty: 1 on 06/30/2022 by Fredy Nguyen MD at [facility] N/A: Spine Cervical Musculoskeletal Transplant [id number] 04/26/2026 [id number] / [id number] / Matilde [employer] Inc C-Ervin Maxan 51mm Level 3 Fix Spine Cervical Anterior Plate Bone 14-645619 - [id number] Implanted:Qty: 1 on 06/30/2022 by Fredy Nguyen MD at [facility] N/A: Spine Cervical MATILDE BIOM[employer] SPINE INC [id number] 1 / / Matilde Biomet Inc 4mm 16mm Fix Screw Bone [id number] - [id number] Implanted:Qty: 5 on 06/30/2022 by Fredy Nguyen MD at [facility] N/A: Spine Cervical MATILDE BIOM[employer] SPINE INC [id number] / / Access Closure Inc Device 10ml 5fr Closure Mynx Control 2 Mode Balloon Catheter [id number] - [id number] Implanted:Qty: 1 on 03/27/2024 by Nabil Harding MD at [facility] Access Closure Inc 01/18/2026 [id number] / / [id number] [facility] 4.0 X 18mm [place] Osage Rx Coronary Stent [id number] - [id number] Implanted:Qty: 1 on 04/17/2024 by Nabil Harding MD at [facility] Medtronic Card Vasc Surgery 12/26/2026 [id number] / / [id number] Access Closure Inc Mynx Control 6-7fr 2 Mode Balloon Catheter Sealant Lock Syringe [id number] - [id number] Implanted:Qty: 1 on 04/17/2024 by Nabil Harding MD at [facility] [employer] Inc 01/05/2026 [id number] / / [id number] Procedures Procedure Name Priority Date/Time Associated Diagnosis Comments POCT GLUCOSE Routine 06/08/2024 1:18 PM ALLIANCE MANAGER Type 2 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 disease, with long-term current use of insulin ([facility]) POCT HEMOGLOBIN A1C Routine 06/08/2024 1 :18 PM ALLIANCE MANAGER Type 2 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 disease, with long-term current use of insulin ([facility]) ALBUMIN CREATININE RATIO, URINE Routine 06/08/2024 1:18 PM ALLIANCE MANAGER Type 2 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 disease, with long-term current use of insulin ([facility]) POCT LIPID PANEL Routine 06/08/2024 1:18 AM ALLIANCE MANAGER Type 2 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 disease, with long-term current use of insulin ([facility]) HM CREATININE Routine 05/31/2024 12:52 PM ALLIANCE MANAGER COMPREHENSIVE METABOLIC PANEL Routine 05/31/2024 POCT GLUCOSE DEVICE Routine 04/17/2024 1 0:45 AM ALLIANCE MANAGER PCI SHAYY STENT ADDTN'L COR BRANCH (+) [id number] Routine 04/17/2024 10:23 AM ALLIANCE MANAGER Coronary artery disease involving [place] coronary artery of [place] heart without angina pectoris PERCUTANEOUS CORONARY LITHROTRIPSY W/ PCI (+) [id number] Routine 04/17/2024 10:23 AM ALLIANCE MANAGER Coronary artery disease involving [place] coronary artery of [place] heart without angina pectoris CORONARY OCT, 1ST VESSEL Routine 04/17/2024 10:23 AM ALLIANCE MANAGER Coronary artery disease involving [place] coronary artery of [place] heart without angina pectoris VASCULAR ACCESS US GUIDANCE Routine 04/17/2024 10:23 AM ALLIANCE MANAGER Coronary artery disease involving [place] coronary artery of [place] heart without angina pectoris SHAYY MAJOR CORONARY Routine 04/17/2024 10 :23 AM ALLIANCE MANAGER Coronary artery disease involving [place] coronary artery of [place] heart without angina pectoris MODERATE SEDATION FIRST 15MIN 5+ YEAR [address] 04/17/2024 9:00 AM ALLIANCE MANAGER Coronary artery disease involving [place] coronary artery of [place] heart without angina pectoris POCT GLUCOSE DEVICE Routine 04/17/2024 8 :27 AM ALLIANCE MANAGER TRANSTHORACIC ECHO (TTE) COMPLETE W DOPPLER/CF WO CONTRAST Routine 04/05/2024 4:20 PM ALLIANCE MANAGER Chronic heart failure with preserved ejection fraction (CMS/HCC) ([facility]) S/P aortic valve replacement with bioprosthetic valve POCT GLUCOSE DEVICE Routine 03/27/2024 1 2:08 PM ALLIANCE MANAGER CORONARY FLOW VELOCITY (CFR) / INSTATANEOUS FLOW VELOCITY (IFR), 1ST VESSEL Routine 03/27/2024 11:45 AM ALLIANCE MANAGER Coronary artery disease involving [place] coronary artery of [place] heart without angina pectoris Cardiovascular stress test abnormal RIGHT LEFT HEART CATHETERIZATION CORONARY GRAFT WITH WITHOUT LEFT VENTRICULOGRAPHY ANGIOGRAM Routine 03/27/2024 11:45 AM ALLIANCE MANAGER Coronary artery disease involving [place] coronary artery of [place] heart without angina pectoris Cardiovascular stress test abnormal VASCULAR ACCESS US GUIDANCE Routine 03/27/2024 11:45 AM ALLIANCE MANAGER Coronary artery disease involving [place] coronary artery of [place] heart without angina pectoris Cardiovascular stress test abnormal MODERATE SEDATION FIRST 15MIN 5+ YEAR [address] 03/27/2024 10:46 AM ALLIANCE MANAGER Coronary artery disease involving [place] coronary artery of [place] heart without angina pectoris Cardiovascular stress test abnormal POCT GLUCOSE DEVICE Routine 03/27/2024 7 :13 AM ALLIANCE MANAGER XR CHEST 1 VIEW ED 03/19/2024 3:19 AM ALLIANCE MANAGER PRO B-TYPE NATRIURETIC PEPTIDE Add-On 03/19/2024 2:21 AM ALLIANCE MANAGER EGFR STAT 03/19/2024 2:21 AM ALLIANCE MANAGER DIFFERENTIAL AUTO STAT 03/19/2024 2:2 1 AM ALLIANCE MANAGER COMPREHENSIVE METABOLIC PANEL STAT 03/19/2024 2:21 AM ALLIANCE MANAGER CBC WITH AUTO DIFFERENTIAL STAT 03/19/2024 2:21 AM ALLIANCE MANAGER RESPIRATORY PATHOGEN PANEL Routine 03/19/2024 2:21 AM ALLIANCE MANAGER HEPATITIS C AB REFLEX RNA QUANT PCR Routine 06/14/2019 3:47 PM ALLIANCE MANAGER COLONOSCOPY REPORT 05/18/2014 from Last 3 Months or Most Recently Relevant to Health Maintenance Results * (ABNORMAL) POCT hemoglobin A1c (06/08/2024 1:18 PM ALLIANCE MANAGER) Pathologist [facility] Hemoglobin A1C, POC 8.3 4.0 - 5.6 % Capillary blood 06/08/2024 1 :18 PM ALLIANCE MANAGER Terra CRUZ POINT OF CARE TEST ENRIQUE CHINO Final Result * (ABNORMAL) Albumin Creatinine Ratio, Urine (06/08/2024 1:18 PM ALLIANCE MANAGER) Pathologist [facility] Albumin Ur 68.0 mg/L Comment: Interpretive Data No reference range established. Current interpretive data was last revised 2018. Creatinine Ur 32.5 mg/dL [facility] Comment: Interpretive Data No reference range established. Current interpretive data was last revised 2018. Albumin Creatinine Ratio, Ur 209(H) 1 - 29 mg/g JOSE MIGUEL Urine 06/08/2024 1:18 PM ALLIANCE MANAGER 06/08/2024 7:31 PM ALLIANCE MANAGER Terra CRUZ LAB URINE ORDERABLES Fi nal Result JOSE MIGUEL [address] [id number] [address] Department [place] [address] * (ABNORMAL) POCT glucose (06/08/2024 1:18 PM ALLIANCE MANAGER) Glucose Blood, POC 204 mg/dL Comment:PPG 2.5 Hrs Blood 06/08/2024 1:18 PM ALLIANCE MANAGER Terra CRUZ POINT OF CARE TEST ORDE RABLES Final Result * (ABNORMAL) POCT lipid panel (06/08/2024 1:18 AM ALLIANCE MANAGER) Cholesterol, POC 154 mg/dL HDL, POC 25 mg/dL Triglycerides, POC 271 mg/dL LDL Cholesterol POC 75 mg/dL Chol/HDL Ratio, POC 6.2 Non-HDL Cholesterol, POC 129 mg/dL Cholesterol Total, POC 154 mg/dL Capillary blood 06/08/2024 1 :18 AM ALLIANCE MANAGER Terra CRUZ POINT OF CARE TEST ORDE RABLES Final Result * (ABNORMAL) HM CREATININE (05/31/2024 12:52 PM ALLIANCE MANAGER) SCRIBED Creatinine 2.16(A) 0.7 - 1.3 mg/dl EXTERNAL LAB SCRIBED eGFR in NonAfrican Burmese 30 >59 - NA EXTERNAL LAB Blood 05/31/2024 12:5 2 PM ALLIANCE MANAGER Historical Provider HEALTH MAINTENANCE Edited Result - Final EXTERNAL LAB * Comprehensive metabolic panel (05/31/2024) Blood Impressions EXTERNAL LAB - 05/31/2024 Lab ordered in error us Historical Provider LAB BLOOD ORDERABLES Edit ed Result - Final EXTERNAL LAB * POCT glucose (04/17/2024 10:45 AM ALLIANCE MANAGER) Glucose, POC 133 70 - 199 mg/dL Blood 04/17/2024 10:4 5 AM ALLIANCE MANAGER 04/17/2024 10:45 AM ALLIANCE MANAGER us Nbail Harding MD LAB POCT ORDERABLES - DEVICE Fin al Result JOSE MIGUEL [id number] [address] Department [place] [address] * SHAYY MAJOR CORONARY, VASCULAR ACCESS US GUIDANCE, CORONARY OCT, 1ST VESSEL, PERCUTANEOUS CORONARY LITHROTRIPSY W/ PCI (+) [id number], PCI SHAYY STENT ADDTN'L COR BRANCH (+) [id number] (04/17/2024 10:23 AM ALLIANCE MANAGER) Anatomical Region Laterality Modality X-Ray Angiograph y Addenda Addendum by Nabil Harding MD on 04/17/2024 10:55 AM ALLIANCE MANAGER CARDIAC CATHETERIZATION AND INTERVENTION REPORT DATE OF [...] from 02/15/2024 reportedly showed LVEF 33%; small, xlcv-ch-fkpcbren reversible defect in apical anterior and apical [...] groin hematoma, retroperitoneal bleed, vessel perforation; periprocedural MN, cardiac arrhythmias, stroke, contrast induced nephropathy, and [...] a 4.0 x 18 mm Medtronic sherine [place] zotarolimus eluting stent with good angiographic and IVUS results (proximal optimization into left main) Moderate sedation-CPT code 29434 and beyond Deployment of Mynx vascular closure device MODERATE SEDATION: Midazolam 1 mg , Fentanyl 25 mcg, start time 0927 stop time 1023, total direct lbjt-ef-zbnh monitoring of conscious sedation 56 minutes (CPT 62496) TRAINED OBSERVER: Abisai Woods RN was trained observer for moderate sedation. ACCESS SITE: Right common femoral artery PROCEDURE: After obtaining informed consent, patient was brought to the labor delivery specialist and prepped and draped in the usual sterile manner. Time-out and immediate reassessment of the patient was performed. After local anesthesia with lidocaine, right common femoral artery access was taken with micropuncture needle under ultrasound guidance followed by insertion of a 6 Togolese sheath. Selective left coronary angiogram was performed using 6 [place]ol[place] JL4 guide catheter. Estimated blood loss was [...] artery ostium was selectively engaged using 6 [place] JL4 guide catheter. Bivalirudin was used for procedural anticoagulation. Patient has been on dual antiplatelet therapy, today's dose of clopidogrel was given in the labor delivery specialist. 0.014 luge wire was advanced and the stenosis at the ostium of the LAD was crossed. The guidewire was advanced in the distal LAD. IVUS was performed using a [employer] seneca eye IVUS catheter. The reference diameter was [...] Next 4.0 x 18 mm Medtronic sherine [place] ZES was advanced to the target lesion [...] a 4.0 x 18 mm Medtronic sherine [place] ZES will good IVUS and angiographic results. PLAN/RECOMMENDATIONS: Continue dual antiplatelet therapy, statin; and guideline directed medical treatment for CHFrEF. Outpatient Cardiology follow-up. Voice recognition software was used to complete this document, therefore, specialist employee labor relations variances may occur. Nabil Harding MD, [facility] 04/17/24 Nabil Hardign MD CV CARDIAC CATH PROCEDURES Edite d Result - Final * POCT glucose (04/17/2024 8:27 AM ALLIANCE MANAGER) [facility] Signature Glucose, POC 166 70 - 199 mg/dL Blood 04/17/2024 8:27 AM ALLIANCE MANAGER 04/17/2024 8:27 AM ALLIANCE MANAGER Nabil Harding MD LAB POCT ORDERABLES - DEVICE Fin al Result JOSE MIGUEL [address]ERS [address] [address] Department [place] [address] * TRANSTHORACIC ECHO (TTE) COMPLETE W DOPPLER/CF WO CONTRAST (04/05/2024 4:20 PM ALLIANCE MANAGER) Anatomical Region Laterality Modality Ultrasound 04/05/2024 3:53 PM ALLIANCE MANAGER Narrative 04/06/2024 7:04 AM ALLIANCE MANAGER [facility] Cardiology [address], [place] [address] [address] [facility] [address], [place] [address] P:[phone] P:[phone] Echocardiographic Report Patient Name: TAMIKA AGUILAR D : 1945 Study Date: 04/05/2024 3:53:42 PM Gender: M Tech: Location: [facility] Provider: NABIL HARDING Height(Cm): 160 BSA: [...] FINDINGS: Interpretation Site: Exam was interpreted at [facility]. Left Ventricle: Severe enlargement of left ventricle [...] Electronically Signed By: Jose Antonio Walls MD, [facility] 04/06/2024 7:04:01 AM ALLIANCE MANAGER Procedure Note Jose Antonio Walls MD - 04/06/2024 [facility] Medical [facility] Cardiology [address], [place] [address] [address] [facility] [address], [place] [address] P:[phone] P:[phone] Echocardiographic Report Patient Name: TAMIKA AGUILAR D : 1945 Study Date: 04/05/2024 3:53:42 PM Gender: M Tech: Location: [facility] Provider: NABIL HARDING Height(Cm): 160 BSA: [...] FINDINGS: Interpretation Site: Exam was interpreted at [facility]. Left Ventricle: Severe enlargement of left ventricle [...] Antonio Walls MD, FACC 04/06/2024 7:04:01 AM ALLIANCE MANAGER us Nabil Harding MD CV ECHO PROCEDURES Final Result * POCT glucose (03/27/2024 12:08 PM ALLIANCE MANAGER) Glucose, POC 157 70 - 199 mg/dL Blood 03/27/2024 12:0 8 PM ALLIANCE MANAGER 03/27/2024 12:08 PM ALLIANCE MANAGER Nabil Harding MD LAB POCT ORDERABLES - DEVICE Fin al Result JOSE [facility]IG[facility]EL [address] [address] Department [place] [address] * VASCULAR ACCESS US GUIDANCE, RIGHT LEFT HEART CATHETERIZATION CORONARY GRAFT WITH WITHOUT LEFT VENTRICULOGRAPHY ANGIOGRAM, CORONARY FLOW VELOCITY (CFR) / INSTATANEOUS FLOW VELOCITY (IFR), 1ST VESSEL (03/27/2024 11:45 AM ALLIANCE MANAGER) Anatomical Region Laterality Modality X-Ray Angiograph y Addenda Addendum by Nabil Harding MD on 03/27/2024 12:11 PM ALLIANCE MANAGER CARDIAC CATHETERIZATION AND INTERVENTION REPORT DATE OF [...] from 02/15/2024 reportedly showed LVEF 33%; small, [id number] reversible defect in apical anterior and apical [...] groin hematoma, retroperitoneal bleed, vessel perforation; periprocedural MN, cardiac arrhythmias, stroke, contrast induced nephropathy (elevated risk due to underlying CKD), and . After discussing all the benefits, risks and alternatives, patient was willing to proceed with the procedure. PROCEDURES PERFORMED: Ultrasound-guided right common femoral arterial access Selective left and right coronary angiogram Selective bypass graft Angiography Percutaneous coronary intervention-IFR of ostial left anterior descending artery Moderate sedation-CPT code 69938 and beyond Deployment of Mynx vascular closure device MODERATE SEDATION: Midazolam 1 mg , Fentanyl 25 mcg, start time 1059 stop time 1145, total direct [id number] monitoring of conscious sedation 46 minutes (CPT 17620) TRAINED OBSERVER: Bernadette Putnam RN was trained observer for moderate sedation. ACCESS SITE: Right common femoral artery PROCEDURE: After obtaining informed consent, patient was brought to the labor delivery specialist and prepped and draped in the usual sterile manner. Time-out and immediate reassessment of the patient was performed. After local anesthesia with lidocaine, right common femoral artery access was taken with micropuncture needle under ultrasound guidance followed by insertion of a 5 Togolese sheath. Selective left and right coronary angiography was performed using 5 [place]og[place] JL4 and 5F JR4 catheters respectively. Orthogonal views were taken. JR4 diagnostic catheter was used for selective bypass graft Angiography of aortic coronary bypass grafts. Bioprosthetic Aortic valve was not crossed. Estimated blood loss was minimal. All specimens removed. The angiographic and other findings, and details of intervention are given below. FINDINGS: [place] CORONARY ARTERIES: LEFT MAIN CORONARY: Large caliber, [...] caliber graft, no significant focal stenosis. The [place] vessel after anastomosis is a medium caliber vessel without significant focal stenosis. SVG TO RPDA: Large caliber graft, [id number], 30-50% diffuse plaque is seen in the [...] guidewire was zeroed outside the body. Five Togolese JL4 guide catheter was advanced into the [...] was used to complete this document, therefore, specialist employee labor relations variances may occur. Nabil Harding MD, [facility] 03/27/24 us Nabil Harding MD CV CARDIAC CATH PROCEDURES Edite d Result - Final * POCT glucose (03/27/2024 7:13 AM ALLIANCE MANAGER) Glucose, POC 172 70 - 199 mg/dL Blood 03/27/2024 7:13 AM ALLIANCE MANAGER 03/27/2024 7:13 AM ALLIANCE MANAGER us Nabil Harding MD LAB POCT ORDERABLES - DEVICE Fin al Result JOSE MIG[facility]EL [address] [address] Department [place] [address] * XR Chest 1 Vw Portable (03/19/2024 3:19 AM ALLIANCE MANAGER) Anatomical Region Laterality Modality Body, Chest N/A Computed Radiogr aphy 03/19/2024 9:19 AM ALLIANCE MANAGER Impressions 03/19/2024 9:19 AM ALLIANCE MANAGER Comparison is made to a prior study dated 06/30/2022. Median sternotomy wires are present. No new focal consolidation, pulmonary edema, or pneumothorax. Possible trace left pleural effusion. No pneumothorax. Cardiomediastinal silhouette is stable. Electronically signed by: Blanca Noriega M.D. Narrative 03/19/2024 9:19 AM ALLIANCE MANAGER EXAMINATION: XR CHEST 1 VIEW HISTORY: General [...] sult * (ABNORMAL) eGFR (03/19/2024 2:21 AM ALLIANCE MANAGER) eGFR 24(L) >=60 mL/min/1. 73 m2 Comment: [...] last reviewed 2021. Blood 03/19/2024 2:21 AM ALLIANCE MANAGER 03/19/2024 2:25 AM ALLIANCE MANAGER Reese Aguillon MD LAB BLOOD ORDERABLES Final Result [facility] [id number] [address] Department [place] [address] * (ABNORMAL) Differential, auto (03/19/2024 2:21 AM ALLIANCE MANAGER) Neutrophil abs 10.4(H) 1.5 - 6.5 K/cumm Imm gran abs 0.1 0.0 - 0.1 K/cumm [facility] Lymphocyte abs 1.1 0.8 - 3.3 K/cumm [facility] Monocyte abs 1.1(H) 0.2 - 0.8 K/cumm [facility] Eosinophil abs 0.1 0.0 - 0.5 K/cumm [facility] Basophil abs 0.1 0.0 - 0.1 K/cumm [facility] Neutrophil pct 81.5 % [facility] Comment: Interpretive [...] revised on 2017. Blood 03/19/2024 2:21 AM ALLIANCE MANAGER 03/19/2024 2:25 AM ALLIANCE MANAGER Reese Aguillon MD LAB BLOOD ORDERABLES Final Result [facility] [address] [address] Francisco Department [place] [address] * (ABNORMAL) Pro B-type natriuretic peptide (03/19/2024 2:21 AM ALLIANCE MANAGER) NT-proBNP 481(H) <=450 pg/mL Comment: Interpretive Comments: [...] Revised Date: 2017. Blood 03/19/2024 2:21 AM ALLIANCE MANAGER 03/19/2024 3:33 AM ALLIANCE MANAGER Reese Aguillon MD LAB BLOOD ORDERABLES Final Result Performing Organization Address City/State/[facility] Co de Phone Number [facility] [address] [address] Department [place] [address] * Respiratory pathogen panel Nasopharyngeal (03/19/2024 2:21 AM ALLIANCE MANAGER) Pathologist [facility] Influenza A RNA Not Detected Not Detected Influenza B RNA Not Detected Not Detected [facility] RSV RNA Not Detected Not Detected [facility] COVID-19 RNA Not Detected Not Detected [facility] Coronavirus 229E RNA Not Detected Not Detected [facility] Coronavirus HKU1 RNA Not Detected Not Detected [facility] Coronavirus NL63 RNA Not Detected Not Detected [facility] Coronavirus OC43 RNA Not Detected Not Detected [facility] Adenovirus DNA Not Detected Not Detected [facility] Metapneumovirus RNA Not Detected Not Detected [facility] Rhinovirus/Enterov irus RNA Not Detected Not Detected [facility] Parainfluenza 1 RNA Not Detected Not Detected [facility] Parainfluenza 2 RNA Not Detected Not Detected [facility] Parainfluenza 3 RNA Not Detected Not Detected [facility] Parainfluenza 4 RNA Not Detected Not Detected [facility] B. pertussis DNA Not Detected Not Detected [facility] B. parapertussis DNA Not Detected Not Detected [facility] C. pneumoniae DNA Not Detected Not Detected [facility] M. pneumoniae DNA Not Detected Not Detected [facility] Comment: Interpretive Data The [employer] FilmArray Respiratory Panel (RP2.1) assay is a [...] assay has FDA clearance for testing of EQUESTRIAN TRAINER swabs. The performance characteristics of this assay have been determined by [facility]. Current interpretive data was last revised on 2020. Nasopharyngeal 03/19/2024 2: 21 AM ALLIANCE MANAGER 03/19/2024 2:24 AM ALLIANCE MANAGER Narrative [facility] - 03/19/2024 3:21 AM ALLIANCE MANAGER Is the Patient experiencing symptoms consistent with COVID?->Yes Surveillance testing for transplant patient?->No Reese Aguillon MD LAB MICROBIOLOGY - GENERAL ORDERABLES Final Result [facility] [address] [address] Department [place] [address] [facility] * (ABNORMAL) CBC with auto differential (03/19/2024 2:21 AM ALLIANCE MANAGER) WBC 12.7(H) 3.8 - 9.9 K/cumm Hgb 13.1 13.0 - 17.5 g/dL [facility] Hct 40.1 38.9 - 50.3 % [facility] Plt 186 150 - 400 K/cumm [facility] MPV 10.7 9.1 - 12.3 fL [facility] RBC 4.47 4.30 - 5.80 M/cumm [facility] MCV 89.7 81.3 - 96.4 fL [facility] MCH 29.3 27.1 - 33.3 pg [facility] MCHC 32.7 32.3 - 35.7 g/dL [facility] RDW CV 14.6 11.1 - 14.9 % [facility] RDW SD 47.8 35.7 - 48.1 fL [facility] NRBC abs 0.00 0.00 - 0.01 K/cumm [facility] Blood 03/19/2024 2:21 AM ALLIANCE MANAGER 03/19/2024 2:25 AM ALLIANCE MANAGER us Reese Aguillon MD LAB BLOOD ORDERABLES Final Result [facility] [address] [address] Francisco Department [place] [address] * (ABNORMAL) Comprehensive metabolic panel (03/19/2024 2:21 AM ALLIANCE MANAGER) Sodium 141 135 - 145 mmol/L Potassium, [...] Units/L [facility] Blood 03/19/2024 2:21 AM ALLIANCE MANAGER 03/19/2024 2:25 AM ALLIANCE MANAGER Reese Aguillon MD LAB BLOOD ORDERABLES Final Result [facility] Department [employer] [place] [address] * Hepatitis C Antibody Reflex Hepatitis C RNA Quantitative PCR Blood (06/14/2019 3:47 PM ALLIANCE MANAGER) Hep C Ab Negative Negative [facility] Blood specimen (specimen) 06/14/2019 3:47 PM ALLIANCE MANAGER 06/14/2019 8:03 PM ALLIANCE MANAGER Notinfile Unknown LAB MICROBIOLOGY - GENERAL ORD ERABLES Final Result [facility] [address] Department [place] [address] * COLONOSCOPY REPORT (05/18/2014) Anatomical Region Laterality Modality Other Narrative 05/18/2014 Ordered by an unspecified provider. Historical Provider GI PROCEDURE ORDERABLES F inal Result from Last 3 Months or Most Recently Relevant to Health Maintenance Insurance [employer] MEDICARE PPO [employer] MEDIC[employer] PPO [employer] CHOICE MEDICARE PPO Advance Directives For more information, please contact: [phone] * Full Code (Latest Code Status on File) Date Activated Date Inactivated Comments 06/30/2022 6:44 PM 07/03/2022 5:32 PM * Full Code Date Activated Date Inactivated Comments 06/30/2022 6:39 PM 06/30/2022 6:44 PM * Full Code Date Activated Date Inactivated Comments 01/29/2022 2:14 PM 01/30/2022 6:06 PM * Full Code Date Activated Date Inactivated Comments 09/03/2021 12:10 PM 09/04/2021 7:37 PM Care Teams Material Assistant Relationship Specialty Start Date End Date Rafa Chavez DO [address] [place] [address] PCP - General Internal Medicine 06/01/24 Yfn Gill MD Referring Physician Nephrology 01/22/22 Aguila Chris MD Consulting Physician Cardiology 01/22/22 [place] [address] [address] Consulting Physician Endocrinology Diabetes & Metabolism 01/22/22 Neeraj La MD [address] [facility] [facility] [address] [address] [address] [place] [address] Surgeon Vascular Surgery 01/30/22
--- OUTSIDE RECORDS SUMMARY | 2024-06-14 12:42 | XMS_ITS | Clinical Summary ---
Author Organization [facility] Address [address] [place] [address] Phone Care Team Providers Care Jet Pilot Name Role Phone Arnel Gonzalez DO Primary Care Provider [phone] Allergies Active Allergy Reactions Criticality Noted Date [...] 300 MG tablet 04/14/2020 Active Droplet Pen [place] 31G X 5 MM misc 07/28/2020 Active [...] 12/22/2021 Active ergocalciferol (VITAMIN D2) 1.25 MG (37118 UT) capsule TAKE ONE CAPSULE BY MOUTH [...] diabetes mellitus with complication Coronary arteriosclerosis in [place] artery 01/29 Overview (03/06/2019): CAD (coronary artery disease) Coronary artery disease involving [place]ne[place] coronary artery of [place] heart without angina pectoris Coronary atherosclerosis 01/29/2015 Overview (08/30/2020): CAD (coronary artery disease) Coronary artery disease involving [place] coronary artery of [place] heart without angina pectoris H/O: artificial heart [...] 03/03/2020, 02/01/2020, Additional history exists Care Teams Jet Pilot Relationship Specialty Start Date End Date Arnel Gonzalez DO [address] [facility] [address] [place] [id number] PCP - General Internal Medicine 01/31/19
--- OUTSIDE RECORDS SUMMARY | 2024-06-14 12:42 | XMS_ITS | Clinical Summary ---
Author Organization [facility] [employer] Address [address] [place] [address] Care Team Providers Care Senior Materials Planner Name Role Phone Arnel Gonzalez Primary Care Provider [phone] Source Comments [facility] [employer],non[facility] Affiliates and Associated Physician Practices is amultiple site organization consisting of ambulatory clinics and hospital sitesin [place], [place], [place] and [place]. This disclosure is being madepursuant to the Care Everywhere program and may not contain all information available regarding this patient. Last updated 18.[facility] [employer] Allergies Active Allergy Reactions Criticality Noted Date [...] Comments Blood Pressure 136/70 05/05/2021 1:09 PM HOUSE REPAIRER Pulse 76 05/05/2021 1:09 PM HOUSE REPAIRER Temperature - - Respiratory Rate 14 05/05/2021 1:09 PM HOUSE REPAIRER Oxygen Saturation 98% 05/05/2021 1:09 PM HOUSE REPAIRER Inhaled Oxygen Concentration - - Weight 121.1 kg (267 lb) 05/05/2021 1:09 PM HOUSE REPAIRER Height 172.7 cm (5' 8 ) 05/05/2021 1:09 PM HOUSE REPAIRER Body Mass Index 40.6 05/05/2021 1:09 PM HOUSE REPAIRER Plan of Treatment Health Maintenance Due Date [...] age to complete this topic Care Teams Senior Materials Planner Relationship Specialty Start Date End Date Arnel Gonzalez DO [address] [facility] [place], [place] [id number] PCP - General 01/03/21
--- OUTSIDE RECORDS SUMMARY | 2024-06-14 12:42 | XMS_ITS | Clinical Summary ---
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 Stent patent. Continue anti-platelet therapy follow-up 6 months. Assessment & Plan (03/12/2022 5:16 PM QC ANALYST): Impression: Patient is status post right TCAR. [...] (02/05/2020): Added automatically from request for surgery [id number] Hx of colonic polyps 10/10/2019 Overview (10/10/2019): Added automatically from request for surgery [id number] History of colon polyps 07/10/2019 Overview (07/10/2019): Added automatically from request for surgery [id number] Hypertension associated with diabetes 06/29/2019 Assessment & Plan (06/08/2024 2:36 PM QC ANALYST): Chronic problem, Controlled on metoprolol, Entresto, HCTZ, bumetanide, hydralazine, amlodipine. No changes. Assessment & Plan (04/19/2023 1:00 PM QC ANALYST): Hypertension chronic controlled. Continue current medical management [...] actual BMI) Coronary artery disease invo lving [place] coronary artery of [place] heart without angina pectoris 05/06/2015 Overview (08/07/2016): Coronary artery disease involving [place] coronary artery of [place] heart without angina pectoris Assessment & Plan (01/07/2022 3:00 PM CDT): Stable. Continue medical therapy. Mixed diabetic hyperlipidemi a associated with type 2 diabetes mellitus ([facility]) 05/06/2015 Overview (08/07/2016): Type 2 diabetes mellitus with complication Assessment & Plan (06/08/2024 2:36 PM QC ANALYST): Chronic problem. On statin therapy, no changes. Assessment & Plan (04/19/2023 1:00 PM QC ANALYST): Hyperlipidemia chronic and controlled. Continue current medical [...] complication Assessment & Plan (06/08/2024 2:37 PM QC ANALYST): Chronic problem, improving but not at goal. [...] to his insulin regimen Disorder of aorta ([facility]) 10/20/2013 Aortic valve stenosis 10/19/2013 Resolved Problems [...] Department Care Team Description 06/13/2024 Orders Only [facility] Diabetes and Endocrinology [facility] [place] [address] ProviderNelson MD 06/08/2024 1:18 PM QC ANALYST - 06/08/2024 11:59 PM QC ANALYST Hospital Encounter [facility] [address] [place] [address] Type 2 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 disease, with long-term current use of insulin (HCC) Discharge Disposition: Discharge to home or self care 06/08/2024 1:15 PM QC ANALYST Office Visit [facility] [id number] [place] [address] [address], [place] [address] Terra Joiner PA Type 2 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 disease, with long-term current use of insulin (HCC) (Primary Dx); Hypertension associated with diabetes (HCC); Mixed diabetic hyperlipidemia associated with type 2 diabetes mellitus (CMS/HCC) (HCC) 06/02/2024 1:00 PM QC ANALYST Office Visit [facility] Cardiology [address] [place] [address] [place] [phone] Malu Solomon NP Edema, lower extremity (Primary Dx); Chronic combined systolic and diastolic CHF (congestive heart failure) (CMS/HCC) (HCC); Stage 3b chronic kidney disease (HCC) 06/01/2024 Telephone [facility] Cardiology [address] [place] [address] [place] [phone] Nabil Harding MD 05/12/2024 Documentation [facility] Cardiology [address] [place] [address] [place] [phone] Shila Bowers MA 05/10/2024 8:30 AM QC ANALYST Office Visit [facility] Cardiology [address] [place] [address] [place] [phone] Nabil Harding MD Coronary artery disease involving [place] coronary artery of [place] heart without angina pectoris (Primary Dx); S/P CABG x 2; Cardiomyopathy, ischemic; S/P angioplasty with stent; Chronic systolic congestive heart failure (CMS/HCC) ([facility]); S/P aortic valve replacement with bioprosthetic valve; Hypertension associated with diabetes ([facility]); Stage 3b chronic kidney disease ([facility]); Morbid obesity with BMI of 40.0-44.9, adult ([facility]); MARY on CPAP 05/10/2024 Telephone [facility] Cardiology [address] [place] [address] [place] [phone] Nabil Harding MD Medication Problem 04/17/2024 9:30 AM QC ANALYST - 04/17/2024 11:30 AM QC ANALYST Surgery [facility] Cardiac Catheterization Lab [address] [place] [address] Nabil Harding MD PCI SHAYY MAJOR CORONARY [id number] - [id number] 04/17/2024 6:10 AM QC ANALYST - 04/17/2024 3:36 PM QC ANALYST Hospital Encounter [facility] Cardiac Catheterization Lab [id number] [place] [address] Nabil Harding MD Coronary artery disease involving [place] coronary artery of [place] heart without angina pectoris Discharge Disposition: Discharge to home or self care 04/17/2024 Telephone [facility] Cardiology [address] [place] [address] [place] [phone] Nabil Harding MD 04/13/2024 Telephone [facility] Cardiology [address] [place] [address] [place] [phone] Nabil Harding MD 04/10/2024 Telephone [facility] Cardiology [address] [place] [address] [place] [phone] Nabil Harding MD 04/05/2024 3:00 PM QC ANALYST Ancillary Procedure [facility] Cardiology [address] [place] [address] [place] [phone] Chronic heart failure with preserved ejection fraction (CMS/HCC) ([facility]); S/P aortic valve replacement with bioprosthetic valve 03/27/2024 10:30 AM QC ANALYST - 03/27/2024 12:00 PM QC ANALYST Surgery [facility] Cardiac Catheterization Lab [address] [place] [address] Nabil Harding MD RIGHT LEFT HEART CATHETERIZATION WITH CORONARY ANGIOGRAPHY GRAFT AND WITH OR WITHOUT LEFT VENTRICULOGRAPHY [id number] 03/27/2024 6:31 AM QC ANALYST - 03/27/2024 3:17 PM QC ANALYST Hospital Encounter [facility] Cardiac Catheterization Lab [address] [place] [address] Nabil Harding MD Coronary artery disease involving [place] coronary artery of [place] heart without angina pectoris; Cardiovascular stress test abnormal Discharge Disposition: Discharge to home or self care 03/27/2024 Telephone [facility] Cardiology [address] [place] [address] Nabil Harding MD lab order 03/19/2024 2:54 AM QC ANALYST - 03/19/2024 6:44 AM [facility] Emergency [facility] Emergency Department [address] [place] [address] Reese Aguillon MD Generalized weakness (Primary Dx); [...] eye blindness CHF (congestive heart failur e) ([facility]) ([facility]) Pneumonia 10/21/2021 hospitalized at [facility] with PNA, JUANITA and CHF Cancer ([facility]) ([facility]) h/o bladd er cancer, surgical intervention only CKD (chronic kidney disease) , stage III ([facility]) Numbness and tingling fingers an d [...] on file Legal Sex Male 1:58 AM QC ANALYST Gender Identity Not on file Sexual Orientation Not on file Obstetrics History Last Filed Vital Signs Vital Sign Reading Time Taken Comments Blood Pressure 136/62 06/08/2024 1:27 PM QC ANALYST Pulse 79 06/08/2024 1:27 PM QC ANALYST Temperature 36.7 C (98 F) 04/17/2024 7:04 AM QC ANALYST Respiratory Rate 18 06/08/2024 1:27 PM QC ANALYST Oxygen Saturation 95% 06/02/2024 1:00 PM QC ANALYST Inhaled Oxygen Concentration - - Weight 127.3 kg (280 lb 8.6 oz) 06/08/2024 1:27 PM QC ANALYST Height 172.7 cm (5' 8 ) 06/08/2024 1:27 PM QC ANALYST Body Mass Index 42.66 06/08/2024 1:27 PM QC ANALYST Plan of Treatment Health Maintenance Due Date [...] Chronic Care Management No change(04/14 11:08 AM QC ANALYST) No Pool Frey, RN Note: Problem: Chronic Pain Goals: 1. Minimize further functional decline 2. Maximize quality of life 3. Control pain Strategies: - Activity/exercise program recommendation - Conservative stepwise pain medicine strategy with multi-disciplinary approach - Recommend healthy lifestyle strategies and compensatory methods as needed Medical Devices Implanted Type Area Boat Master Device Identifier Shelf Expiration Date Model / Serial / Lot Total Knee Left: Knee Medtronic Inc Resolute Sherine 3mm 2.1-2.7fr 12mm 140cm Rapid Exchange Radiopaque [id number] - [id number] Implanted:Qty: 1 on 09/03/2021 by Bnidu Goins MD at [facility] Medtronic Inc 06/11/2024 [id number] / / Medtronic Inc Resolute Blanchard 3.5mm 2.1-2.7fr 15mm 140cm Rapid Exchange [id number] - [id number] Implanted:Qty: 1 on 09/03/2021 by Bindu Goins MD at [facility] Med[employer]onic Inc 04/04/2024 [id number] / / Angio-Seal Vip 6fr Closere Device [id number] - [id number] Implanted:Qty: 1 on 09/03/2021 by Bindu Goins MD at [facility] Medical Miya 06/02/2022 [id number] / / [employer] Enroute Uber Flex 8mm .065in 40mm 57cm Delivery System Angle Tip [id number] - [id number] Implanted:Qty: 1 on 01/29/2022 by Neeraj La MD at [facility] Right: Carotid [employer] 08/30/2024 [id number] / / [id number] Matilde [employer] Inc 4.5mm 16mm Fix Screw Bone [id number] - [id number] Implanted:Qty: 3 on 06/30/2022 by Fredy Nguyen MD at [facility] N/A: Spine Cervical MATILDE [employer]OM[employer] SP[employer] INC [id number] 6 / / Musculoskeletal Transplant 12.6b51k8qm Frozen Spine 7d Lordotic Trapezoid Spacer Allograft 013119 - [id number] - [id number] Implanted:Qty: 1 on 06/30/2022 by Fredy Nguyen MD at [facility] N/A: Spine Cervical Musculoskeletal Transplant [id number] 03/25/2025 [id number] / [id number] / Musculoskeletal Transplant 12.7w07h8rs Frozen Spine 7d Lordotic Trapezoid Spacer Allograft 078237 - [id number] - [id number] Implanted:Qty: 1 on 06/30/2022 by Fredy Nguyen MD at [facility] N/A: Spine Cervical Musculoskeletal Transplant [id number] 01/03/2025 [id number] / [id number] / Musculoskeletal Transplant 12.2c54o5eh Frozen Spine 7d Lordotic Trapezoid Spacer Allograft 235723 - [id number] - [id number] Implanted:Qty: 1 on 06/30/2022 by Fredy Nguyen MD at [facility] N/A: Spine Cervical Musculoskeletal Transplant [id number] 04/26/2026 [id number] / [id number] / [employer]ilde [employer] Inc C-Ervin Maxan 51mm Level 3 Fix Spine Cervical Anterior Plate Bone 14-571425 - [id number] Implanted:Qty: 1 on 06/30/2022 by Fredy Nguyen MD at [facility] N/A: Spine Cervical [employer]IL[employer] [id number] 1 / / Matilde [employer] Inc 4mm 16mm Fix Screw Bone [id number] - [id number] Implanted:Qty: 5 on 06/30/2022 by Fredy Nguyen MD at [facility] N/A: Spine Cervical [employer]ILDE [employer] INC [id number] / / Access Closure Inc Device 10ml 5fr Closure Mynx Control 2 Mode Balloon Catheter [id number] - [id number] Implanted:Qty: 1 on 03/27/2024 by Nabil Harding MD at [facility] Access [employer]osure Inc 01/18/2026 [id number] / / [id number] [facility] Vasc Surgery 4.0 X 18mm Blanchard Reagan Rx Coronary Stent [id number] - [id number] Implanted:Qty: 1 on 04/17/2024 by Nabil Harding MD at [facility] Medtronic Card Vasc Surgery 12/26/2026 [id number] / / [id number] Access Closure Inc Mynx Control 6-7fr 2 Mode Balloon Catheter Sealant Lock Syringe [id number] - [id number] Implanted:Qty: 1 on 04/17/2024 by Nabil Harding MD at [facility] [employer] 01/05/2026 [id number] / / [id number] Procedures Procedure Name Priority Date/Time Associated Diagnosis Comments POCT GLUCOSE Routine 06/08/2024 1:18 PM QC ANALYST Type 2 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 disease, with long-term current use of insulin (HCC) POCT HEMOGLOBIN A1C Routine 06/08/2024 1 :18 PM QC ANALYST Type 2 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 disease, with long-term current use of insulin (HCC) ALBUMIN CREATININE RATIO, URINE Routine 06/08/2024 1:18 PM QC ANALYST Type 2 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 disease, with long-term current use of insulin (HCC) POCT LIPID PANEL Routine 06/08/2024 1:18 AM QC ANALYST Type 2 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 disease, with long-term current use of insulin (HCC) HM CREATININE Routine 05/31/2024 12:52 PM QC ANALYST COMPREHENSIVE METABOLIC PANEL Routine 05/31/2024 POCT GLUCOSE DEVICE Routine 04/17/2024 1 0:45 AM QC ANALYST PCI SHAYY STENT ADDTN'L COR BRANCH (+) [id number] Routine 04/17/2024 10:23 AM QC ANALYST Coronary artery disease involving [place] coronary artery of [place] heart without angina pectoris PERCUTANEOUS CORONARY LITHROTRIPSY W/ PCI (+) [id number] Routine 04/17/2024 10:23 AM QC ANALYST Coronary artery disease involving [place] coronary artery of [place] heart without angina pectoris CORONARY OCT, 1ST VESSEL Routine 04/17/2024 10:23 AM QC ANALYST Coronary artery disease involving [place] coronary artery of [place] heart without angina pectoris VASCULAR ACCESS US GUIDANCE Routine 04/17/2024 10:23 AM QC ANALYST Coronary artery disease involving [place] coronary artery of [place] heart without angina pectoris SHAYY MAJOR CORONARY Routine 04/17/2024 10 :23 AM QC ANALYST Coronary artery disease involving [place] coronary artery of [place] heart without angina pectoris MODERATE SEDATION FIRST 15MIN 5+ YEAR [address] 04/17/2024 9:00 AM QC ANALYST Coronary artery disease involving [place] coronary artery of [place] heart without angina pectoris POCT GLUCOSE DEVICE Routine 04/17/2024 8 :27 AM QC ANALYST TRANSTHORACIC ECHO (TTE) COMPLETE W DOPPLER/CF WO CONTRAST Routine 04/05/2024 4:20 PM QC ANALYST Chronic heart failure with preserved ejection fraction (CMS/HCC) ([facility]) S/P aortic valve replacement with bioprosthetic valve POCT GLUCOSE DEVICE Routine 03/27/2024 1 2:08 PM QC ANALYST CORONARY FLOW VELOCITY (CFR) / INSTATANEOUS FLOW VELOCITY (IFR), 1ST VESSEL Routine 03/27/2024 11:45 AM QC ANALYST Coronary artery disease involving [place] coronary artery of [place] heart without angina pectoris Cardiovascular stress test abnormal RIGHT LEFT HEART CATHETERIZATION CORONARY GRAFT WITH WITHOUT LEFT VENTRICULOGRAPHY ANGIOGRAM Routine 03/27/2024 11:45 AM QC ANALYST Coronary artery disease involving [place] coronary artery of [place] heart without angina pectoris Cardiovascular stress test abnormal VASCULAR ACCESS US GUIDANCE Routine 03/27/2024 11:45 AM QC ANALYST Coronary artery disease involving [place] coronary artery of [place] heart without angina pectoris Cardiovascular stress test abnormal MODERATE SEDATION FIRST 15MIN 5+ YEAR 02329 03/27/2024 10:46 AM QC ANALYST Coronary artery disease involving [place] coronary artery of [place] heart without angina pectoris Cardiovascular stress test abnormal POCT GLUCOSE DEVICE Routine 03/27/2024 7 :13 AM QC ANALYST XR CHEST 1 VIEW ED 03/19/2024 3:19 AM QC ANALYST PRO B-TYPE NATRIURETIC PEPTIDE Add-On 03/19/2024 2:21 AM QC ANALYST EGFR STAT 03/19/2024 2:21 AM QC ANALYST DIFFERENTIAL AUTO STAT 03/19/2024 2:2 1 AM QC ANALYST COMPREHENSIVE METABOLIC PANEL STAT 03/19/2024 2:21 AM QC ANALYST CBC WITH AUTO DIFFERENTIAL STAT 03/19/2024 2:21 AM QC ANALYST RESPIRATORY PATHOGEN PANEL Routine 03/19/2024 2:21 AM QC ANALYST HEPATITIS C AB REFLEX RNA QUANT PCR Routine 06/14/2019 3:47 PM QC ANALYST COLONOSCOPY REPORT 05/18/2014 from Last 3 Months or Most Recently Relevant to Health Maintenance Results * (ABNORMAL) POCT hemoglobin A1c (06/08/2024 1:18 PM QC ANALYST) Hemoglobin A1C, POC 8.3 4.0 - 5.6 % Capillary blood 06/08/2024 1 :18 PM QC ANALYST Terra CRUZ POINT OF CARE TEST ORDE RABLES Final Result * (ABNORMAL) Albumin Creatinine Ratio, Urine (06/08/2024 1:18 PM QC ANALYST) Albumin Ur 68.0 mg/L Comment: Interpretive Data No reference range established. Current interpretive data was last revised 2018. Creatinine Ur 32.5 mg/dL JOSE MIGUEL BOWERS Comment: Interpretive Data No reference range established. Current interpretive data was last revised 2018. Albumin Creatinine Ratio, Ur 209(H) 1 - 29 mg/g JOSE MIGUEL BOWERS Urine 06/08/2024 1:18 PM QC ANALYST 06/08/2024 7:31 PM QC ANALYST Terra CRUZ LAB URINE ORDERABLES Fi nal Result JOSE MIGUEL BOWERS [address] [address] Department [place] [address] * (ABNORMAL) POCT glucose (06/08/2024 1:18 PM QC ANALYST) Glucose Blood, POC 204 mg/dL Comment:PPG 2.5 Hrs Blood 06/08/2024 1:18 PM QC ANALYST Result [facility] Terra CRUZ POINT OF CARE TEST ORDE RABAMBER Final Result * (ABNORMAL) POCT lipid panel (06/08/2024 1:18 AM QC ANALYST) Cholesterol, POC 154 mg/dL HDL, POC 25 mg/dL Triglycerides, POC 271 mg/dL LDL Cholesterol POC 75 mg/dL Chol/HDL Ratio, POC 6.2 Non-HDL Cholesterol, POC 129 mg/dL Cholesterol Total, POC 154 mg/dL Capillary blood 06/08/2024 1 :18 AM QC ANALYST Result [facility] Terra CRUZ POINT OF CARE TEST ORDE RABLES Final Result * (ABNORMAL) HM CREATININE (05/31/2024 12:52 PM QC ANALYST) SCRIBED Creatinine 2.16(A) 0.7 - 1.3 mg/dl EXTERNAL LAB SCRIBED eGFR in NonAfrican [place] 30 >59 - NA EXTERNAL LAB Blood 05/31/2024 12:5 2 PM QC ANALYST Result [facility] Historical [facility] Edited Result - Final EXTERNAL LAB * Comprehensive metabolic panel (05/31/2024) Blood Impressions EXTERNAL LAB - 05/31/2024 Lab ordered in error Result [facility] Historical Provider LAB BLOOD ORDERABLES Edit ed Result - Final EXTERNAL LAB * POCT glucose (04/17/2024 10:45 AM QC ANALYST) Glucose, POC 133 70 - 199 mg/dL Blood 04/17/2024 10:4 5 AM QC ANALYST 04/17/2024 10:45 AM QC ANALYST Result [facility] Nabil Harding MD LAB POCT ORDERABLES - [place]ICE [place] [address] [address] Department [place] [address] * SHAYY MAJOR CORONARY, VASCULAR ACCESS US GUIDANCE, CORONARY OCT, 1ST VESSEL, PERCUTANEOUS CORONARY LITHROTRIPSY W/ PCI (+) [id number], PCI SHAYY STENT ADDTN'L COR BRANCH (+) [id number] (04/17/2024 10:23 AM QC ANALYST) Anatomical Region Laterality Modality X-Ray Angiograph y Addenda Addendum by Nabil Harding MD on 04/17/2024 10:55 AM QC ANALYST CARDIAC CATHETERIZATION AND INTERVENTION REPORT DATE OF [...] from 02/15/2024 reportedly showed LVEF 33%; small, vtyw-vb-tpnszned reversible defect in apical anterior and apical [...] groin hematoma, retroperitoneal bleed, vessel perforation; periprocedural ND, cardiac arrhythmias, stroke, contrast induced nephropathy, and [...] a 4.0 x 18 mm Medtronic sherine Reagan zotarolimus eluting stent with good angiographic and IVUS results (proximal optimization into left main) Moderate sedation-CPT code 33003 and beyond Deployment of Mynx vascular closure device MODERATE SEDATION: Midazolam 1 mg , Fentanyl 25 mcg, start time 0927 stop time 1023, total direct ydgh-eo-hfxy monitoring of conscious sedation 56 minutes (CPT 87162) TRAINED OBSERVER: Abisai Woods RN was trained observer for moderate sedation. ACCESS SITE: Right common femoral artery PROCEDURE: After obtaining informed consent, patient was brought to the microbiological laboratory technician and prepped and draped in the usual sterile manner. Time-out and immediate reassessment of the patient was performed. After local anesthesia with lidocaine, right common femoral artery access was taken with micropuncture needle under ultrasound guidance followed by insertion of a 6 Turkmen sheath. Selective left coronary angiogram was performed using 6 Turkmen JL4 guide catheter. Estimated blood loss was [...] artery ostium was selectively engaged using 6 Turkmen JL4 guide catheter. Bivalirudin was used for procedural anticoagulation. Patient has been on dual antiplatelet therapy, today's dose of clopidogrel was given in the microbiological laboratory technician. 0.014 luge wire was advanced and the stenosis at the ostium of the LAD was crossed. The guidewire was advanced in the distal LAD. IVUS was performed using a [employer] eye IVUS catheter. The reference diameter was [...] Next 4.0 x 18 mm Medtronic sherine Reagan ZES was advanced to the target lesion [...] a 4.0 x 18 mm Medtronic sherine Reagan ZES will good IVUS and angiographic results. PLAN/RECOMMENDATIONS: Continue dual antiplatelet therapy, statin; and guideline directed medical treatment for CHFrEF. Outpatient Cardiology follow-up. Voice recognition software was used to complete this document, therefore, logistics specialist variances may occur. Nabil Harding MD, [facility] 04/17/24 Nabil Harding MD CV CARDIAC CATH PROCEDURES Edite d Result - Final * POCT glucose (04/17/2024 8:27 AM QC ANALYST) Glucose, POC 166 70 - 199 mg/dL Blood 04/17/2024 8:27 AM QC ANALYST 04/17/2024 8:27 AM QC ANALYST Nabil Harding MD LAB POCT ORDERABLES - DEVICE Fin al Result Performing Organization Address City/State/[facility] Co de Phone Number [facility] [address] [address] Department of Laboratories [place], [place] [id number] * TRANSTHORACIC ECHO (TTE) COMPLETE W DOPPLER/CF WO CONTRAST (04/05/2024 4:20 PM QC ANALYST) Anatomical Region Laterality Modality Ultrasound 04/05/2024 3:53 PM QC ANALYST Narrative 04/06/2024 7:04 AM QC ANALYST [facility] [address], [place], [place] [address] [address] [facility] [address], [place] [address] P:[phone] P:[phone] Echocardiographic Report Patient Name: TAMIKA AGUILAR D : 1945 Study Date: 04/05/2024 3:53:42 PM Gender: M Tech: MOISÉS Location: [facility] Provider: NABIL HARDING Height(Cm): 160 BSA: 2.08 [...] FINDINGS: Interpretation Site: Exam was interpreted at [facility]. Left Ventricle: Severe enlargement of left ventricle [...] Electronically Signed By: Jose Antonio Walls MD, [facility] 04/06/2024 7:04:01 AM QC ANALYST Procedure Note Jose Antonio Walls MD - 04/06/2024 [facility] [address] [facility] [address] [id number] [address] [facility] [id number], [place] [address] P:[phone] P:[phone] Echocardiographic Report Patient Name: TAMIKA AGUILARPriscilla : 1945 Study Date: 04/05/2024 3:53:42 PM Gender: M Tech: MOISÉS Location: [place] Ref Provider: NABIL HARDING Height(Cm): 160 BSA: [...] FINDINGS: Interpretation Site: Exam was interpreted at [facility]. Left Ventricle: Severe enlargement of left ventricle [...] Electronically Signed By: Jose Antonio Walls MD, [facility] 04/06/2024 7:04:01 AM QC ANALYST us Nabil Harding MD CV ECHO PROCEDURES Final Result * POCT glucose (03/27/2024 12:08 PM QC ANALYST) Glucose, POC 157 70 - 199 mg/dL Blood 03/27/2024 12:0 8 PM QC ANALYST 03/27/2024 12:08 PM QC ANALYST us Nabil Harding MD LAB POCT ORDERABLES - DEVICE Fin al Result JOSE MIGUEL [address] [place] [address] * VASCULAR ACCESS US GUIDANCE, RIGHT LEFT HEART CATHETERIZATION CORONARY GRAFT WITH WITHOUT LEFT VENTRICULOGRAPHY ANGIOGRAM, CORONARY FLOW VELOCITY (CFR) / INSTATANEOUS FLOW VELOCITY (IFR), 1ST VESSEL (03/27/2024 11:45 AM QC ANALYST) Anatomical Region Laterality Modality X-Ray Angiograph y Addenda Addendum by Nabil Harding MD on 03/27/2024 12:11 PM QC ANALYST CARDIAC CATHETERIZATION AND INTERVENTION REPORT DATE OF [...] from 02/15/2024 reportedly showed LVEF 33%; small, [id number] reversible defect in apical anterior and apical [...] groin hematoma, retroperitoneal bleed, vessel perforation; periprocedural ND, cardiac arrhythmias, stroke, contrast induced nephropathy (elevated risk due to underlying CKD), and . After discussing all the benefits, risks and alternatives, patient was willing to proceed with the procedure. PROCEDURES PERFORMED: Ultrasound-guided right common femoral arterial access Selective left and right coronary angiogram Selective bypass graft Angiography Percutaneous coronary intervention-IFR of ostial left anterior descending artery Moderate sedation-CPT code 66359 and beyond Deployment of Mynx vascular closure device MODERATE SEDATION: Midazolam 1 mg , Fentanyl 25 mcg, start time 1059 stop time 1145, total direct [id number] monitoring of conscious sedation 46 minutes (CPT 42469) TRAINED OBSERVER: Bernadette Putnam RN was trained observer for moderate sedation. ACCESS SITE: Right common femoral artery PROCEDURE: After obtaining informed consent, patient was brought to the microbiological laboratory technician and prepped and draped in the usual sterile manner. Time-out and immediate reassessment of the patient was performed. After local anesthesia with lidocaine, right common femoral artery access was taken with micropuncture needle under ultrasound guidance followed by insertion of a 5 Turkmen sheath. Selective left and right coronary angiography was performed using 5 Turkmen JL4 and 5F JR4 catheters respectively. Orthogonal views were taken. JR4 diagnostic catheter was used for selective bypass graft Angiography of aortic coronary bypass grafts. Bioprosthetic Aortic valve was not crossed. Estimated blood loss was minimal. All specimens removed. The angiographic and other findings, and details of intervention are given below. FINDINGS: [facility] [facility] CORONARY ARTERIES: LEFT MAIN CORONARY: Large caliber, [...] caliber graft, no significant focal stenosis. The crooked creek vessel after anastomosis is a medium caliber vessel without significant focal stenosis. SVG TO RPDA: Large caliber graft, [id number], 30-50% diffuse plaque is seen in the [...] guidewire was zeroed outside the body. Five Turkmen JL4 guide catheter was advanced into the [...] was used to complete this document, therefore, logistics specialist variances may occur. Nabil Harding MD, [facility] 03/27/24 Nabil Harding MD CV CARDIAC CATH PROCEDURES Edite d Result - Final * POCT glucose (03/27/2024 7:13 AM QC ANALYST) Glucose, POC 172 70 - 199 mg/dL Blood 03/27/2024 7:13 AM QC ANALYST 03/27/2024 7:13 AM QC ANALYST us Nabil Harding MD LAB POCT ORDERABLES - DEVICE Fin al Result JOSE MIGUEL [address] Department [place] [address] * XR Chest 1 Vw Portable (03/19/2024 3:19 AM QC ANALYST) Anatomical Region Laterality Modality Body, Chest N/A Computed Radiogr aphy 03/19/2024 9:19 AM QC ANALYST Impressions 03/19/2024 9:19 AM QC ANALYST Comparison is made to a prior study dated 06/30/2022. Median sternotomy wires are present. No new focal consolidation, pulmonary edema, or pneumothorax. Possible trace left pleural effusion. No pneumothorax. Cardiomediastinal silhouette is stable. Electronically signed by: Blanca Noriega M.D. Narrative 03/19/2024 9:19 AM QC ANALYST EXAMINATION: XR CHEST 1 VIEW HISTORY: General [...] sult * (ABNORMAL) eGFR (03/19/2024 2:21 AM QC ANALYST) eGFR 24(L) >=60 mL/min/1. 73 m2 Comment: [...] last reviewed 2021. Blood 03/19/2024 2:21 AM QC ANALYST 03/19/2024 2:25 AM QC ANALYST us Reese Aguillon MD LAB BLOOD ORDERABLES Final Result JOSE MIGUEL [address] Department [place] [address] * (ABNORMAL) Differential, auto (03/19/2024 2:21 AM QC ANALYST) Neutrophil abs 10.4(H) 1.5 - 6.5 K/cumm Imm gran abs 0.1 0.0 - 0.1 K/cumm [facility] Lymphocyte abs 1.1 0.8 - 3.3 K/cumm [facility] Monocyte abs 1.1(H) 0.2 - 0.8 K/cumm [facility] Eosinophil abs 0.1 0.0 - 0.5 K/cumm [facility] Basophil abs 0.1 0.0 - 0.1 K/cumm [facility] Neutrophil pct 81.5 % JOSE MIGUEL [...] revised on 2017. Blood 03/19/2024 2:21 AM QC ANALYST 03/19/2024 2:25 AM QC ANALYST us Reese Aguillon MD LAB BLOOD ORDERABLES Final Result JOSE MIGUEL [address] [place] [address] * (ABNORMAL) Pro B-type natriuretic peptide (03/19/2024 2:21 AM QC ANALYST) NT-proBNP 481(H) <=450 pg/mL Comment: Interpretive Comments: [...] Revised Date: 2017. Blood 03/19/2024 2:21 AM QC ANALYST 03/19/2024 3:33 AM QC ANALYST Reese Aguillon MD LAB BLOOD ORDERABLES Final Result [facility] [address] Department [place] [address] * Respiratory pathogen panel Nasopharyngeal (03/19/2024 2:21 AM QC ANALYST) Pathologist [facility] Influenza A RNA Not Detected Not Detected Influenza B RNA Not Detected Not Detected [facility] RSV RNA Not Detected Not Detected [facility] COVID-19 RNA Not Detected Not Detected [facility] Coronavirus 229E RNA Not Detected Not Detected [facility] Coronavirus HKU1 RNA Not Detected Not Detected [facility] Coronavirus NL63 RNA Not Detected Not Detected [facility] Coronavirus OC43 RNA Not Detected Not Detected [facility] Adenovirus DNA Not Detected Not Detected [facility] Metapneumovirus RNA Not Detected Not Detected [facility] Rhinovirus/Enterov irus RNA Not Detected Not Detected [facility] Parainfluenza 1 RNA Not Detected Not Detected [facility] Parainfluenza 2 RNA Not Detected Not Detected [facility] Parainfluenza 3 RNA Not Detected Not Detected [facility] Parainfluenza 4 RNA Not Detected Not Detected [facility] B. pertussis DNA Not Detected Not Detected [facility] B. parapertussis DNA Not Detected Not Detected [facility] C. pneumoniae DNA Not Detected Not Detected [facility] M. pneumoniae DNA Not Detected Not Detected [facility] Comment: Interpretive Data [employer] [...] assay has FDA clearance for testing of RETAIL LEASING AGENT swabs. The performance characteristics of this assay have been determined by [facility]. Current interpretive data was last revised on 2020. Nasopharyngeal 03/19/2024 2: 21 AM QC ANALYST 03/19/2024 2:24 AM QC ANALYST [facility] 03/19/2024 3:21 AM QC ANALYST Is the Patient experiencing symptoms consistent with COVID?->Yes Surveillance testing for transplant patient?->No Reese Aguillon MD LAB MICROBIOLOGY - GENERAL ORDERABLES Final Result JOSE MIGUEL BOWERS [address] [place] [address] [place] * (ABNORMAL) CBC with auto differential (03/19/2024 2:21 AM QC ANALYST) WBC 12.7(H) 3.8 - 9.9 K/cumm Hgb [...] K/cumm [facility] Blood 03/19/2024 2:21 AM QC ANALYST 03/19/2024 2:25 AM QC ANALYST Reese Aguillon MD LAB BLOOD ORDERABLES Final Result Performing Organization Address City/[facility]/ZIP Co de Phone Number JOSE MIGUEL [address]ERS [address] [place] [address] * (ABNORMAL) Comprehensive metabolic panel (03/19/2024 2:21 AM QC ANALYST) Sodium 141 135 - 145 mmol/L Potassium, [...] Units/L [facility] Blood 03/19/2024 2:21 AM QC ANALYST 03/19/2024 2:25 AM QC ANALYST us Reese Aguillon MD LAB BLOOD ORDERABLES Final Result [facility] [address] Department [place] [address] * Hepatitis C Antibody Reflex Hepatitis C RNA Quantitative PCR Blood (06/14/2019 3:47 PM QC ANALYST) Hep C Ab Negative Negative [facility] Blood specimen (specimen) 06/14/2019 3:47 PM QC ANALYST 06/14/2019 8:03 PM QC ANALYST us Notinfile Unknown LAB MICROBIOLOGY - GENERAL [place] [address] [place] [address] * COLONOSCOPY REPORT (05/18/2014) Anatomical Region Laterality Modality Other Narrative 05/18/2014 Ordered by an unspecified provider. us Historical Provider GI PROCEDURE ORDERABLES F inal Result from Last 3 Months or Most Recently Relevant to Health Maintenance Insurance [employer] MEDICARE PPO [employer] MEDICARE PPO [employer] MEDICARE PPO HU[employer]NA CHOICE MEDICARE PPO Advance Directives For more information, please contact: [phone] * Full Code (Latest Code Status on File) Date Activated Date Inactivated Comments 06/30/2022 6:44 PM 07/03/2022 5:32 PM * Full Code Date Activated Date Inactivated Comments 06/30/2022 6:39 PM 06/30/2022 6:44 PM * Full Code Date Activated Date Inactivated Comments 01/29/2022 2:14 PM 01/30/2022 6:06 PM * Full Code Date Activated Date Inactivated Comments 09/03/2021 12:10 PM 09/04/2021 7:37 PM Care Teams Medicinal Plant Picker Relationship Specialty Start Date End Date Rafa Chavez DO [address] [place] [address] [address] PCP - General Internal Medicine 06/01/24 Yfn Gill MD Referring Physician Nephrology 01/22/22 Aguila Chris MD Consulting Physician Cardiology 01/22/22 [place] [address] [address] Consulting Physician Endocrinology Diabetes & Metabolism 01/22/22 Neeraj La MD [address] [facility] [address] [address] Surgeon Vascular Surgery 01/30/22
--- OUTSIDE RECORDS SUMMARY | 2024-06-14 12:42 | XMS_ITS | Encounter Summary ---
Author Organization [facility] Address [address] [place] [address] Phone Care Team Providers Care Electric Trucker Name Role Phone Arnel Gonzalez MD Primary Care Provider [phone] Yfn Gill MD Unavailable [phone] Aguila Chris MD Unavailable [phone] Malcolm Castro MD Unavailable [phone] Neeraj La MD Unavailable [phone] Armand Howard RN Unavailable Unavaila August Hsu Primary Care Provider Miguel Torres DO Primary Care Provider [phone] Rafa Chavez DO Primary Care Provider [phone] Encounter Details Date Type Department Care Team [...] on file Legal Sex Male 1:58 AM CONTACT PRINTER DRY FILM Gender Identity Not on file Sexual Orientation [...] COVID: Suspected 05/05/2022 05/05/2022 05/05/2022 12:26 PM CONTACT PRINTER DRY FILM COVID: Suspected 05/05/2022 05/05/2022 05/05/2022 8:19 PM CONTACT PRINTER DRY FILM COVID: Suspected 03/19/2024 03/19/2024 03/19/2024 3:22 AM CONTACT PRINTER DRY FILM documented as of this encounter Care Teams Electric Trucker Relationship Specialty Start Date End Date Arnel Gonzalez MD [address] [place] [address] PCP - General 07/19/13 07/05/23 August Triana PA [address] [place] [address] [address] [place] [address] PCP - General Physician Interface Developer 07/06/23 01/16/24 Miguel Torres DO [address] [place] [address] [place] [address] PCP - General Internal Medicine 01/17/24 05/31/24 Rafa Chavez DO [address] [place] [address] [address] PCP - General Internal Medicine 06/01/24 Yfn Gill MD [address] [facility] [address] [place] [address] Referring Physician Nephrology 01/22/22 Aguila Chris MD [address] [facility] [address] [place] [address] Consulting Physician Cardiology 01/22/22 [place] [address] [address] Consulting Physician Endocrinology Diabetes & Metabolism 01/22/22 Neeraj La MD [address] [facility] [address] [place] [address] Surgeon Vascular Surgery 01/30/22 Armand Howard, RN Registered Nurse 06/30/22 07/02/22 documented as of this encounter
--- OUTSIDE RECORDS SUMMARY | 2024-06-14 12:42 | XMS_ITS | Referral Summary ---
Author Organization [facility] Address [address] [facility] [place] [address] Care Team Providers Care Port Warden Name Role Phone Arnel Gonzalez Primary Care Provider [phone] Source Comments [facility],non-ssm health care Affiliates and Associated Physician Practices is amultiple site organization consisting of ambulatory clinics and hospital sitesin [place], [place], [place] and [place]. This disclosure is being madepursuant to the Care Everywhere program and may not contain all information available regarding this patient. Last updated 18.[facility] Industrious Kid Allergies Active Allergy Reactions Criticality Noted Date [...] Comments Blood Pressure 136/70 05/05/2021 1:09 PM WIRELESS WATCHER Pulse 76 05/05/2021 1:09 PM WIRELESS WATCHER Temperature - - Respiratory Rate 14 05/05/2021 1:09 PM WIRELESS WATCHER Oxygen Saturation 98% 05/05/2021 1:09 PM WIRELESS WATCHER Inhaled Oxygen Concentration - - Weight 121.1 kg (267 lb) 05/05/2021 1:09 PM WIRELESS WATCHER Height 172.7 cm (5' 8 ) 05/05/2021 1:09 PM WIRELESS WATCHER Body Mass Index 40.6 05/05/2021 1:09 PM WIRELESS WATCHER Plan of Treatment Not on file Care Teams Port Warden Relationship Specialty Start Date End Date Arnel Gonzalez DO [address] [facility] [address] [place], [place] [id number] PCP - General 01/03/21
--- OUTSIDE RECORDS SUMMARY | 2024-06-14 12:43 | XMS_ITS | Clinical Summary ---
Author Organization [facility] Address [address] [place] [address] Care Team Providers Care Irrigation Equipment Remover Name Role Phone Arnel Gonzalez MD Primary Care Provider Allergies Active Allergy Reactions Criticality Noted Date [...] on file Legal Sex Male 12:11 PM LABORATORY AIDE Gender Identity Not on file Sexual Orientation Not on file Last Filed Vital Signs Vital Sign Reading Time Taken Comments Blood Pressure 138/67 10/12/2023 3:33 PM CDT Pulse 85 10/12/2023 3:33 PM CDT Temperature 37.1 C (98.7 F) 10/12/2023 3:33 PM CDT Respiratory Rate 18 06/22/2023 12:59 PM LABORATORY AIDE Oxygen Saturation 96% 10/12/2023 3:33 PM CDT [...] 02/24/2022, 02/27/2021, Additional history exists PHQ-2 (Physician [place]) 05/03/2024 10/12/2023 Lipid Panel 06/16/2024 06/16/2023 Zoster Vaccines Completed 05/07/2021, 02/18/2021 Meningococcal B Vaccine Aged Out No l onger eligible based on patient's age to complete this topic Meningococcal Vaccine Aged Out No jorge kelsi eligible based on patient's age to complete this topic RSV Immunizations Under 20 Months Aged Out No longer eligible based on patient's age to complete this topic Insurance [facility] Care Teams Irrigation Equipment Remover Relationship Specialty Start Date End Date Arnel Gonzalez MD [address] [place] [address] PCP - General INTERNAL MEDICINE 06/22/23
--- OUTSIDE RECORDS SUMMARY | 2024-06-14 12:43 | XMS_ITS | Continuity of Care Document ---
Author Organization [facility] Address [address] [facility] [address] [place] [address] Phone Care Team Providers Care Optometrist/Practice Owner Name Role Phone Zaheer Tom Unavailable Unavailable [...] Diagnoses Date Provider Providers Copied on Encounter [facility], [address], [place], [place], [id number], [place] tel:[phone] SEC [facility] No Information 0 Vaishali Schwab. [facility] [address], [address], [place]. tel:[phone] Referring Provider: Zaheer evans, [address] [address], [place], [address]. tel:[phone] [facility], [address], [place], [place], [id number], [place] tel:[phone] SEC [facility] No Information [phone] 0 Krishnasamy Zaheer. [address] [place], [place] [address]ate [place] [address], [place], [place], [facility], [place]. tel:[phone] [facility], [address], [place], [place], [id number], [place] tel:[phone] SEC [facility] No Information [address] [employer]. [address] [facility], [address], [place], [place], [id number], [place]. tel:[phone] Referring Provider: Zaheer evans, [address] [place], [place] [address]ate [facility] [address], [place], [place], [facility]. tel:[phone] sulting Provider: Leif Pineda, [address] [place] [address], [place], [place], [facility]. tel:[phone] [facility], [address] [place] [address] [address], [place], [place], [id number], [place] tel:[phone] SEC [facility] No Information 9 Krishnasamy Zaheer. [address] [place], [place] [address]ate [facility] [address], [place], [place], [facility], [place]. tel:[phone] Referring Provider: Zaheer evans, [address] [place], [place] [address]ate [facility] [address], [place], [place], [facility]. tel:[phone] [facility], [address] [place] [address] [address], [place], [place], [address], [place] tel:[phone] SEC [facility] [place] No Information [address] 9 Krishnasamy Zaheer. [address] [place], [place] [address]ate [facility] [address], [place], [place], [facility], [place]. tel:[phone] [facility], [address], [place], [place], [id number], [place] tel:[phone] SEC [facility] No Information 200 7 Juan Daniel Rios. [address] [facility], [address], [place], [place], [id number], [place]. tel:[phone] Family History Family Member Type Diagnosis Age At Onset No Information Payers Payer name Insurance type Covered constitution party ID Authoriza tion(s) [place] [id number] Social History Type Description Quantity Date Captured [...]
--- OUTSIDE RECORDS SUMMARY | 2024-06-14 12:43 | XMS_ITS | Encounter Summary ---
Author Organization [facility] Address [address] [place] [address] Care Team Providers Care Marketing Support Coordinator Name Role Phone Yfn Gill MD Unavailable [phone] Aguila Chris MD Unavailable [phone] Malcolm Castro MD Unavailable [phone] Neeraj La MD Unavailable [phone] Rafa Chavez DO Primary Care Provider [phone] Encounter Details Date Type Department Care Team (Late st Contact Info) Description 06/13/2024 Orders Only [facility] Diabetes and Endocrinology [address] [place] [address] Provider, MD Nelson [address] [place], [place] [id number] Social History Tobacco Use Types Packs/Day Years [...] on file Legal Sex Male 1:58 AM LOFTSMAN/WOMAN Gender Identity Not on file Sexual Orientation Not on file documented as of this encounter Plan of Treatment Not on file documented as of this encounter Goals Goal Patient Goal Type Associated Problems Recent Progress Patient-Stated? Author CCM Chronic Pain Care Plan Chronic Care Management No change(04/14 11:08 AM LOFTSMAN/WOMAN) Pool Welch, KATHERINE Note: Problem: Chronic Pain [...] Comments HM CREATININE Routine 05/31/2024 12:52 PM LOFTSMAN/WOMAN COMPREHENSIVE METABOLIC PANEL Routine 05/31/2024 documented in this encounter Results * (ABNORMAL) HM CREATININE (05/31/2024 12:52 PM LOFTSMAN/WOMAN) SCRIBED Creatinine 2.16(A) 0.7 - 1.3 mg/dl EXTERNAL LAB SCRIBED eGFR in NonAfrican Citizen Of [place] 30 >59 - NA EXTERNAL LAB Blood 05/31/2024 12:5 2 PM LOFTSMAN/WOMAN us Historical Provider HEALTH MAINTENANCE Edited Result - Final EXTERNAL LAB * Comprehensive metabolic panel (05/31/2024) Blood Impressions EXTERNAL LAB - 05/31/2024 Lab ordered in error Historical Provider LAB BLOOD ORDERABLES Edit ed Result - Final EXTERNAL LAB documented in this encounter Visit Diagnoses Not on filedocumented in this encounter Care Teams Marketing Support Coordinator Relationship Specialty Start Date End Date Rafa Chavez DO [address] [facility] [address] [place] [address] PCP - General Internal Medicine 06/01/24 Yfn Gill MD Referring Physician Nephrology 01/22/22 Aguila Chris MD Consulting Physician Cardiology 01/22/22 [place] [address] [address] Consulting Physician Endocrinology Diabetes & Metabolism 01/22/22 Neeraj La MD [address] [facility] [address] [place] [address] Surgeon Vascular Surgery 01/30/22 documented as of this encounter
--- OUTSIDE RECORDS SUMMARY | 2024-06-14 12:43 | XMS_ITS | Patient Health Summary ---
Author Organization [facility] Address [address] [place] [address] Care Team Providers Care Pet Crematory Worker Name Role Phone SabrinaArnel barbour Devan ROBISON Primary Care Provider [phone] Note from [facility],non-owned Affiliates and Associated Physician Practices is amultiple site organization consisting of ambulatory clinics and hospital sitesin [place], [place], [place] and [place]. This disclosure is being madepursuant to the Care Everywhere program and may not contain all information available regarding this patient. Last updated 18.[facility] Allergies * Codeine(Itching) -Medium Criticality * Tramadol(Unknown) [...] Comments Blood Pressure 136/70 05/05/2021 1:09 PM ENERGY ANALYST Pulse 76 05/05/2021 1:09 PM ENERGY ANALYST Temperature - - Respiratory Rate 14 05/05/2021 1:09 PM ENERGY ANALYST Oxygen Saturation 98% 05/05/2021 1:09 PM ENERGY ANALYST Inhaled Oxygen Concentration - - Weight 121.1 kg (267 lb) 05/05/2021 1:09 PM ENERGY ANALYST Height 172.7 cm (5' 8 ) 05/05/2021 1:09 PM ENERGY ANALYST Body Mass Index 40.6 05/05/2021 1:09 PM ENERGY ANALYST Procedures * NERVE CONDUCTION TEST(Performed 05/05/2021) Performed for Cubital tunnel syndrome of both upper extremities Results * NERVE CONDUCTION TEST (05/05/2021 5:28 PM ENERGY ANALYST) Narrative Kenny Bishop MD - 05/05/2021 5:28 PM ENERGY ANALYST Kenny Bishop MD 05/06/2021 5:31 PM [facility] [place] [address] [facility] [address] [address] Test Date: 05/05/2021 Patient: Gabriel Celeste DOB: 1945 Physician: Kenny Bishop MD Sex: Male Height: 5' 8 Ref Phys: ID#: [id number] Weight: 276 lbs. Patient Complaints: Patient is [...] Bishop MD NEUROLOGY ORDERABLE S Care Teams Pet Crematory Worker Relationship Specialty Start Date End Date Arnel Gonzalez DO [address] [facility] [address] [place] [address] PCP - General 01/03/21
--- NOTE | 2024-06-14 12:55 | PC.NURSE ---
patient provided with a urinal and asked to provide a urine sample. patient verbalizes understanding and states that he will let the nursing staff know when he is able to pee
[2024-06-14 13:01] LABS: Basophils Absolute Auto 0.1 K/mm3 (0.0-0.1); Basophils Percent Auto 0.4 % (0.2-1.2); Eosinophils Percent Auto 0.2 % (0-4.4); Hematocrit 39.4 % (42.0-52.0); Hemoglobin 12.8 g/dL (14.0-18.0); Immature Granulocyte Absolute 0.07 K/mm3 (0.00-0.031); Immature Granulocyte Percent A 0.5 % (0-0.5); Lymphocytes Absolute Auto 1.25 K/mm3 (0.9-3.2); Lymphocytes Percent Auto 8.9 % (18.3-44.2); Mean Corpuscular HGB Conc 32.5 g/dl (32-36); Mean Corpuscular Hemoglobin 28.9 pg (26-34); Mean Corpuscular Volume 88.9 fl (80-100); Mean Platelet Volume 10.5 fl (7.4-10.4); Monocytes Percent Auto 6.9 % (2.6-8.5); Neutrophils Absolute Auto 11.6 K/mm3 (1.3-6.7); Neutrophils Percent Auto 83.1 % (45.5-73.1); Platelet Count Result 161 k/mm3 (150-375); Red Blood Count 4.43 M/mm3 (4.6-6.20); Red Cell Distribution Width 14.2 % (11.5-14.5)
[2024-06-14 13:11] LABS: Alanine Aminotransferase 26 U/L (6-50); Albumin Level 4.2 g/dL (3.5-5.1); Alkaline Phosphatase 83 U/L (38-126); Anion Gap 13 mmol/L (4-12); Aspartate Amino Transferase 24 U/L (17-59); Blood Urea Nitrogen 38 mg/dL (9-20); Calcium 8.7 mg/dL (8.4-10.2); Carbon Dioxide 30 mmol/L (22-30); Chloride 94 mmol/L (98-107); Estimated CRCL calculation 30 ml/min; Estimated Glomerular Filt Rate 27; Glucose 377 mg/dL (65-110); Potassium 3.3 mmol/L (3.4-5.0); Sodium 137 mmol/L (137-145)
[2024-06-14 13:18] LABS: Influenza A QL RT-PCR Negative (Negative); Influenza B QL RT-PCR Negative (Negative); RSV RNA, RT-PCR Negative (Negative); SARS-CoV-2 RNA PCR Negative (Negative)
[2024-06-14 14:38] LABS: Add Urine Microscopic? YES; Appearance Urine Cloudy (Clear); Bacteria Urine 4+ /hpf; Bilirubin Urine Negative (Negative); Blood Urine 3+ (Negative); Color Urine Yellow (Yellow); Glucose Urine UA 3+ mg/dL (Negative); Ketones Urine Negative (Negative); Leukocyte Esterase Ur 1+ LEU/UL (Negative); Nitrate Urine Negative (Negative); Non Pathogenic Casts 0-2; Protein Urine 3+ mg/dL (Negative); RBC Urine 21-50 /hpf (0-2); Specific Grav Ur 1.025 (1.001-1.035); Squamous Epithelial Cell Urine None Seen /hpf (Few); Urobilinogen Urine 0.2 mg/dL (<2.0); WBC Urine >100 /hpf (0-3); pH Urine 6.5 (5.0-9.0)
[2024-06-14] MEDS: LACTATED RINGERS 500 ML 999 ML IV CONT (16:11)
[2024-06-14] MEDS: METOPROLOL TARTRATE INJ 5 MG/5 ML VIAL IV PUSH (16:11)
[2024-06-14] MEDS: cefTRIAXone 2 GM/NS 100 ML 2 GM/100 ML BAG IVPB (16:11)
[2024-06-14] MEDS: ACETAMINOPHEN 500 MG TABLET 1000 MG PO (16:12)
--- NOTE | 2024-06-14 21:21 | ADMGEN ---
This patient, Gabriel Celeste, was admitted to 3 [facility] Surg Room 304-01. Patient/family oriented to hospital policies and general routines including ID bracelet, bed and alarms, visiting hours, pain management, procedures, bathroom and other care routines, personal items, smoking policy, room service/diet, and visiting hours. Information on how to activate the Rapid Response Team has been discussed. Patient/Family are encouraged to report perceived risks to care and to ask questions if they do not understand what they are told or what they should do.
[2024-06-14 23:19] LABS: Magnesium 2.2 mg/dL (1.6-2.3)
--- NOTE | 2024-06-14 23:28 | PM.IMHP ---
H&P: HPI History of Present Illness Date/Time: 06/14/24 23:28 Chief Complaint: Weakness in the knees and hematuria Narrative: This is a very pleasant 78-year-old male with a past medical history MARY on CPAP, heart failure reduced ejection fraction, insulin-dependent diabetes mellitus, obesity, hyperlipidemia, hypertension, prior tobacco abuse CAD status post CABG, status post bioprosthetic aortic valve replacement CKD stage 4, secondary hyperparathyroidism, chronic low back pain. Patient presents with a few days of weakness and hematuria with painful urination. He reports blood in the urine was dark, unclear if there were clots. Also reports his felt he had a fever at home. On the day of admission in [place] ER on 06/14/2024 a fever of 103.4 with documented. Transient tachycardia. Transiently hypoxic. Chest x-ray with cardiomegaly, CT abdomen pelvis without contrast did not demonstrate any masses or obvious etiology for hematuria, mild bibasilar chronic interstitial disease, small umbilical hernia, splenomegaly. WBC 14, hemoglobin 12.8, potassium 3.3, BUN 38, serum creatinine 2.31, glucose 377, magnesium 2.2 BNP pending, urinalysis 3+ blood, 1+ leukocyte esterase, 21-50 RBC, greater than 100 WBC, 4+ bacteria. No gross hematuria observed since admission. Quad viral screen negative. He was given 1 L normal saline, ceftriaxone 2 g IV x1, metoprolol tartrate 5 mg IV x2, Tylenol 1000 mg p.o. x1. After arriving to the medical floor patient reported feeling at his baseline. He had no complaints while resting in bed. Denies shortness of breath or chest pain or abdominal pain or bladder pain or fever. Review of Systems Review of Systems: All systems reviewed & are unremarkable except as noted in HPI and below (HPI) [facility] Past Medical History Medical History (Updated 06/14/24 @ 23:35 by Annel Thrasher MD) 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, <= 40%) Blindness of left eye Obstructive sleep apnea treated with BiPAP Diabetes Arthritis BPH (benign prostatic hyperplasia) Chronic GERD HTN (hypertension) Hypercholesterolemia CAD (coronary artery disease) CHF (congestive heart failure) Echocardiogram June 2021 EF of 55-60%, nuclear stress test demonstrated normal perfusion but enlarged left ventricle in declining EF to 42%, LORENE performed 07/30/2021 to further determine valve pathology demonstrated mild left ventricular systolic dysfunction with EF of 45-50% and [id number] left atrial enlargement with bioprosthetic valve without significant findings Obesity Type 2 diabetes mellitus Hyperlipidemia Surgical History Surgical History History of neck surgery History of cardiac catheterization (08/2021) Moderate pulmonary hypertension, patent vein grafts to the obtuse marginal and RPDA, complex high-grade stenosis to the proximal LAD beginning at the origin of the 1st septal branch and extending about 30 mm distal into the LAD crossing over the diagonal branches as well Hx of LASIK History of transurethral resection of prostate (12/2020) History of aortic valve replacement with bioprosthetic valve (10/2013) Erickson poor seen valve S/P CABG (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) Saphenous vein graft to obtuse marginal, saphenous vein graft to PDA Family History Family History Mother Family history of heart disease in male family member before age 55 Acute myocardial infarction Diabetes mellitus Father Cancer Sibling Diabetes mellitus Sibling Hypertension Social History Social History Smoking packs per day: 4 Smoking cigarettes per day: 80.0 Years smoked: 30 Smoking pack-years: 120.00 Smoking status: Former smoker Tobacco type: cigarettes Second hand tobacco smoke exposure: Yes Smoking end date: 05/03/86 Alcohol intake: unknown Drinks per week: 3 Substance use: never Substance use type: does not use Do You Feel Safe in your Home?: Yes Lack of Transportation: No Lack of Food: Never True Current Housing: I Have Housing Concerned About Future Housing: No Difficulty Paying Gas/Electric Bills: No Difficulty Paying for Meds: No Currently Unemployed: No Education: High School Diploma/GED Difficulty w/ Childcare or Family Care: No Living arrangements: with family Additional living arrangements comments: He lives at home with his of 42 years. They raised 4 children. 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 Gender identity (if verbalized by the patient): Male Spiritual care concerns: No Meds Home Medications and Allergies Home Medications ?Medication ?Instructions ?Recorded ?Confirmed ?Type aspirin 81 mg tablet,delayed 81 mg PO DAILY 04/14/19 03/23/24 History release (Adult Aspirin Regimen) multivitamin (Multiple Vitamins 1 tablet PO DAILY 06/28/19 03/23/24 History tablet) alpha lipoic acid 600 mg capsule 600 mg PO DAILY 12/12/20 03/23/24 History hydralazine 50 mg tablet 50 mg PO TID 12/12/20 03/23/24 History bumetanide 2 mg tablet 2 mg PO BID 07/29/21 03/23/24 History nitroglycerin 400 mcg/spray 1 spray sublingual Q5MIN chest pain 07/29/21 03/23/24 History translingual clopidogrel 75 mg tablet 75 mg PO DAILY 09/30/21 03/23/24 History azelastine 137 mcg (0.1 %) nasal 2 spray intranasal Q12H #30 mL 11/19/21 03/23/24 Rx spray betamethasone valerate 0.1 % 1 applic topical BID #15 grams 06/23/22 03/23/24 Rx topical cream calcitriol 0.25 mcg capsule 0.25 mcg PO 3XW #60 caps 06/16/23 03/23/24 Rx hydroxyzine HCl 10 mg tablet 10 mg PO TID PRN anxiety #60 tabs 06/22/23 03/23/24 Rx hydrochlorothiazide 25 mg tablet 25 mg PO DAILY #90 tabs 08/30/23 03/23/24 Rx amlodipine 10 mg tablet See Rx Instructions .Route 09/20/23 03/23/24 Rx .COMPLEX #90 tabs allopurinol 300 mg tablet 300 mg PO DAILY #90 tabs 11/29/23 03/23/24 Rx finasteride 5 mg tablet 5 mg PO DAILY #90 tabs 11/29/23 03/23/24 Rx insulin regular hum U-500 conc 500 See Rx Instructions subcut TID #20 12/02/23 03/23/24 Rx unit/mL(3 mL) subcut pen (Humulin mL R U-500 (Conc) Insulin Kwikpen) omeprazole 20 mg capsule,delayed 20 mg PO DAILY #90 caps 12/16/23 03/23/24 Rx release fluticasone propionate 50 2 spray intranasal DAILY PRN nasal 12/23/23 03/23/24 Rx mcg/actuation nasal congestion #48 grams spray,suspension dapagliflozin propanediol 10 mg 10 mg PO DAILY #90 tabs 12/31/23 03/23/24 Rx tablet (Farxiga) terazosin 10 mg capsule 10 mg PO DAILY #90 caps 02/01/24 03/23/24 Rx doxycycline hyclate 100 mg tablet 100 mg PO BID #20 tabs 02/11/24 03/23/24 Rx lidocaine 5 % topical patch 1 patch topical DAILY #30 ea 03/06/24 03/23/24 Rx amitriptyline 25 mg tablet 25 mg PO DAILY 03/23/24 03/23/24 History sacubitril 49 mg-valsartan 51 mg 1 tablet PO DAILY 03/23/24 03/23/24 History tablet (Entresto) semaglutide 0.25 mg or 0.5 mg (2 0.5 mg subcut WEEKLY 03/23/24 03/23/24 History mg/3 mL) subcutaneous pen injector (MobAppCreator) ergocalciferol (vitamin D2) 1,250 See Rx Instructions .Route 05/01/24 Rx mcg (50,000 unit) capsule .COMPLEX #13 caps potassium chloride 10 mEq 10 meq PO DAILY #30 tabs 05/31/24 Rx tablet,extended release (Klor-Con) atorvastatin 40 mg tablet (Lipitor) 40 mg PO DAILY 06/01/24 History furosemide 40 mg tablet (Lasix) 40 mg PO QAM 06/01/24 History metoprolol succinate 50 mg 50 mg PO DAILY 06/01/24 History tablet,extended release 24 hr vericiguat 10 mg tablet (Verquvo) 10 mg PO DAILY 06/01/24 History potassium chloride 10 mEq 10 meq PO DAILY #10 tabs 06/02/24 Rx tablet,extended release(part/cryst) (Klor-Con M) Allergies Allergy/AdvReac Type Severity Reaction Status Date / Time codeine AdvReac Intermediate Itching Verified 04/10/24 10:51 tramadol AdvReac Mild Nausea And Verified 04/10/24 10:51 Vomiting Vital Signs Vital Signs - 24 hr 06/14/24 11:49 06/14/24 12:30 06/14/24 12:31 Temperature 99.3 F Pulse Rate 57 L 123 H 124 H Respiratory Rate 18 31 H 24 H Blood Pressure 165/76 H 151/106 H Pulse Oximetry 94 95 95 Oxygen Delivery Room Air Room Air Oxygen Flow Rate 06/14/24 12:32 06/14/24 12:33 06/14/24 12:35 Temperature Pulse Rate 121 H 115 H 115 H Respiratory Rate 16 20 18 Blood Pressure 157/65 H 157/65 H Pulse Oximetry 96 97 97 Oxygen Delivery Oxygen Flow Rate 06/14/24 12:45 06/14/24 12:46 06/14/24 13:00 Temperature Pulse Rate 118 H 118 H 118 H Respiratory Rate 20 20 23 H Blood Pressure 166/62 H Pulse Oximetry 95 94 Oxygen Delivery Oxygen Flow Rate 06/14/24 13:01 06/14/24 13:18 06/14/24 13:30 Temperature Pulse Rate 116 H 113 H Respiratory Rate 8 L 20 Blood Pressure 151/79 H Pulse Oximetry 96 92 Oxygen Delivery Oxygen Flow Rate 06/14/24 14:03 06/14/24 14:45 06/14/24 15:00 Temperature Pulse Rate 125 H 118 H 116 H Respiratory Rate 27 H 14 24 H Blood Pressure Pulse Oximetry 94 89 L 91 Oxygen Delivery Oxygen Flow Rate 06/14/24 15:01 06/14/24 15:15 06/14/24 15:16 Temperature Pulse Rate 118 H 116 H 118 H Respiratory Rate 19 17 19 Blood Pressure 133/111 H 154/135 H Pulse Oximetry 91 91 92 Oxygen Delivery Oxygen Flow Rate 06/14/24 15:30 06/14/24 15:45 06/14/24 15:46 Temperature Pulse Rate 117 H 119 H 116 H Respiratory Rate 21 H 21 H 18 Blood Pressure 126/60 Pulse Oximetry 89 L 93 94 Oxygen Delivery Oxygen Flow Rate 06/14/24 16:00 06/14/24 16:02 06/14/24 16:08 Temperature 103.4 F H Pulse Rate 114 H 115 H Respiratory Rate 19 20 Blood Pressure 132/64 Pulse Oximetry 89 L Oxygen Delivery Oxygen Flow Rate 06/14/24 16:11 06/14/24 16:15 06/14/24 16:18 Temperature Pulse Rate 118 H 107 H 102 H Respiratory Rate 19 20 Blood Pressure 149/60 H Pulse Oximetry 88 L 85 L Oxygen Delivery Oxygen Flow Rate 06/14/24 16:18 06/14/24 16:30 06/14/24 16:32 Temperature Pulse Rate 107 H 102 H Respiratory Rate 22 H 17 Blood Pressure 118/104 H Pulse Oximetry 85 L 96 97 Oxygen Delivery Room Air Oxygen Flow Rate 06/14/24 16:42 06/14/24 16:45 06/14/24 17:00 Temperature Pulse Rate 96 96 99 Respiratory Rate 22 H 17 20 Blood Pressure 112/67 Pulse Oximetry 97 97 97 Oxygen Delivery Oxygen Flow Rate 06/14/24 17:01 06/14/24 17:15 06/14/24 17:30 Temperature 103 F H Pulse Rate 99 115 H 96 Respiratory Rate 21 H 19 17 Blood Pressure 121/63 Pulse Oximetry 98 99 98 Oxygen Delivery Oxygen Flow Rate 06/14/24 17:45 06/14/24 18:00 06/14/24 18:15 Temperature Pulse Rate 96 95 94 Respiratory Rate 18 16 16 Blood Pressure Pulse Oximetry 97 98 Oxygen Delivery Oxygen Flow Rate 06/14/24 18:16 06/14/24 18:18 06/14/24 21:15 Temperature 101.3 F H 100.0 F H Pulse Rate 94 130 H Respiratory Rate 16 22 H Blood Pressure 134/58 L 165/58 H Pulse Oximetry 93 95 Oxygen Delivery Nasal Cannula Oxygen Flow Rate 2 Exam Const: General: comfortable and no acute distress Other: A&O x3 HENMT: Mouth: Yes moist mucous membranes Eyes: Pupils: Equal, round and reactive pupils present Neck: Neck: supple Resp: Effort & Inspection: normal respiratory effort Auscultation: clear to auscultation bilaterally Cardio: Rate: regular rate Rhythm: regular rhythm GI: GI Palp: Yes Soft to palpation and No Tenderness to palpation present (GI) : General: Yes bladder normal to palpation Extrem: Other: 1+ pitting edema bilateral lower extremities below the knees H&P: Results Labs Labs: Short CBC 06/14/24 Range/Units 12:56 WBC 14.0 H (4.5-10.0) K/mm3 Hgb 12.8 L (14.0-18.0) g/dL Hct 39.4 L (42.0-52.0) % Plt Count 161 (150-375) k/mm3 BMP 06/14/24 12:56 Sodium 137 Potassium 3.3 L Chloride 94 L Carbon Dioxide 30 BUN 38 H Creatinine 2.31 H Glucose 377 H Calcium 8.7 Liver Function 06/14/24 Range/Units 12:56 Total Bilirubin 1.0 (0.2-1.3) mg/dL AST 24 (17-59) U/L ALT 26 (6-50) U/L Alkaline Phosphatase 83 (38-126) U/L Albumin 4.2 (3.5-5.1) g/dL Urine 06/14/24 Range/Units 14:27 Urine Color Yellow (Yellow) Urine Appearance Cloudy H (Clear) Urine pH 6.5 (5.0-9.0) Ur Specific [place] 1.025 (1.001-1.035) Urine Protein 3+ H (Negative) mg/dL Urine Glucose (UA) 3+ H (Negative) mg/dL Assessment and Plan Assessment and plan (1) Acute UTI: Code(s): N39.0 - Urinary tract infection, site not specified Status: Acute (2) Hematuria: Code(s): R31.9 - Hematuria, unspecified Status: Acute (3) Hypoxia: Code(s): R09.02 - Hypoxemia Status: Acute (4) Hypokalemia: Code(s): E87.6 - Hypokalemia Status: Acute (5) Sepsis: Code(s): A41.9 - Sepsis, unspecified organism Status: Acute Plan This is a very pleasant 78-year-old male with a past medical history MARY on CPAP, heart failure reduced ejection fraction, insulin-dependent diabetes mellitus, obesity, hyperlipidemia, hypertension, prior tobacco abuse CAD status post CABG, status post bioprosthetic aortic valve replacement CKD stage 4, secondary hyperparathyroidism, chronic low back pain. Patient presents with a few days of weakness and hematuria with painful urination. He reports blood in the urine was dark, unclear if there were clots. Also reports his felt he had a fever at home. On the day of admission in [place] ER on 06/14/2024 a fever of 103.4 with documented. Transient tachycardia. Transiently hypoxic. Chest x-ray with cardiomegaly, CT abdomen pelvis without contrast did not demonstrate any masses or obvious etiology for hematuria, mild bibasilar chronic interstitial disease, small umbilical hernia, splenomegaly. WBC 14, hemoglobin 12.8, potassium 3.3, BUN 38, serum creatinine 2.31, glucose 377, magnesium 2.2 BNP pending, urinalysis 3+ blood, 1+ leukocyte esterase, 21-50 RBC, greater than 100 WBC, 4+ bacteria. No gross hematuria observed since admission. Quad viral screen negative. He was given 1 L normal saline, ceftriaxone 2 g IV x1, metoprolol tartrate 5 mg IV x2, Tylenol 1000 mg p.o. x1. After arriving to the medical floor patient reported feeling at his baseline. He had no complaints while resting in bed. Denies shortness of breath or chest pain or abdominal pain or bladder pain or fever. ----- Generalized weakness-likely due to acute infection. PTOT eval. Fall precautions ambulate with assistance. Transient hypoxia -95% on room air now. Heart failure reduced ejection fraction-has slight lower extremity edema otherwise appears compensated. Now on room air. Restart JAVA APPLICATION DEVELOPER medications CKD stage 4 -restart JAVA APPLICATION DEVELOPER medications, renally dose new medications. Trend BNP MARY CPAP -CPAP ordered Sepsis without shock present on admission as evidence by tachycardia and fever and leukocytosis due to UTI -trend parameters. Blood cultures pending. Acute UTI -continue with ceftriaxone 1 g Q 24 hour. No prior microbiology to compare. Hematuria -consult urology Diabetes. A.c. HS with sliding insulin sliding scale and restart JAVA APPLICATION DEVELOPER insulin. CAD status post CABG/hyperlipidemia -resume JAVA APPLICATION DEVELOPER medications Hypokalemia -replace. Recheck. ----- SCDs. Hold pharmacological prophylaxis due to hematuria Saline lock IV Heart healthy diabetic diet with Accu-Cheks a.c. HS Patient wishes to be full code PTOT Hospitalist MIPS Advance Care Plan I have confirmed that the patient's Advanced Care Plan is present, code status is documented, or surrogate decision maker is listed in patient medical record.: Yes Medication Reconciliation I have utilized all available resources to obtain, update and review the patients current medications (includes all prescriptions, OTC, herbals, cannabis, and nutritional supplements).: Yes
[2024-06-14] MEDS: ACETAMINOPHEN 325 MG TABLET 650 MG PO (23:32)
[2024-06-14 23:35] LABS: NT Pro B Type Natriuretic Pept 1860 pg/mL (19.9-100)
[2024-06-15] MEDS: POTASSIUM CHLORIDE 20 MEQ ER TABLET 40 MEQ PO (00:12)
[2024-06-15 00:19] VITALS: TEMP 36.8
[2024-06-15 00:32] VITALS: TEMP 37.1
[2024-06-15 05:16] VITALS: BP 133/65; PULSE 79; RESP 20; TEMP 36.8; O2SAT 98
--- NOTE | 2024-06-15 08:49 | PM.IMPN ---
Progress Note: A&P Assessment and Plan (1) Acute UTI: Code(s): N39.0 - Urinary tract infection, site not specified Status: Acute (2) Hematuria: Code(s): R31.9 - Hematuria, unspecified Status: Acute (3) Hypoxia: Code(s): R09.02 - Hypoxemia Status: Acute (4) Hypokalemia: Code(s): E87.6 - Hypokalemia Status: Acute (5) Sepsis: Code(s): A41.9 - Sepsis, unspecified organism Status: Acute Plan This is a very pleasant 78-year-old male with a past medical history MARY on CPAP, heart failure reduced ejection fraction, insulin-dependent diabetes mellitus, obesity, hyperlipidemia, hypertension, prior tobacco abuse CAD status post CABG, status post bioprosthetic aortic valve replacement CKD stage 4, secondary hyperparathyroidism, chronic low back pain. Patient presents with a few days of weakness and hematuria with painful urination. He reports blood in the urine was dark, unclear if there were clots. Also reports his felt he had a fever at home. On the day of admission in [place] [facility] on 06/14/2024 a fever of 103.4 with documented. Transient tachycardia. Transiently hypoxic. Chest x-ray with cardiomegaly, CT abdomen pelvis without contrast did not demonstrate any masses or obvious etiology for hematuria, mild bibasilar chronic interstitial disease, small umbilical hernia, splenomegaly. WBC 14, hemoglobin 12.8, potassium 3.3, BUN 38, serum creatinine 2.31, glucose 377, magnesium 2.2 BNP pending, urinalysis 3+ blood, 1+ leukocyte esterase, 21-50 RBC, greater than 100 WBC, 4+ bacteria. No gross hematuria observed since admission. Quad viral screen negative. He was given 1 L normal saline, ceftriaxone 2 g IV x1, metoprolol tartrate 5 mg IV x2, Tylenol 1000 mg p.o. x1. Sepsis with tachycardia fever leukocytosis due to UTI. Blood culture pending. On ceftriaxone which will be continued. UTI: Ceftriaxone. Follow urine culture Hematuria urology consulted Generalized weakness-likely due to acute infection. PTOT eval. Fall precautions ambulate with assistance. Transient hypoxia -95% on room air now. Continue to monitor Heart failure reduced ejection fraction-has slight lower extremity edema otherwise appears compensated. Now on room air. Restart [employer] medications CKD stage 4 -restart [employer] medications, renally dose new medications. Trend BNP MARY CPAP -CPAP ordered Diabetes. A.c. HS with sliding insulin sliding scale and restart [employer] insulin. CAD status post CABG/hyperlipidemia -resume [employer] medications Hypokalemia -replace. Recheck. DVT prophylaxis: SCDs. Hold pharmacological prophylaxis due to hematuria Diet: Heart healthy diabetic diet with Accu-Cheks a.c. HS Code status: Patient wishes to be full code Subjective Date/time seen: 06/15/24 08:49 Interval history: Feeling better. No abdominal pain or nausea vomiting. No further hematuria. Review of Systems Review of Systems: All systems reviewed & are unremarkable except as noted in HPI and below (HPI) Exam Narrative: GENERAL:[No acute distress, non-toxic appearing.] HEAD: Normal with no signs of head trauma. EYES: EOMI, conjunctiva normal ENT: Hearing grossly intact LUNGS: Nonlabored breathing. HEART: Regular rate rhythm, ABD: [Soft], nontender, EXT: Normal range of motion SKIN: [No rashes or lesions.] NEURO: [Alert. No gross focal sensory or strength deficits.] PSYCH: Normal affect Objective Data Vital Signs Vital Signs: Vital Signs - 24 hr 06/14/24 11:49 06/14/24 12:30 06/14/24 12:31 Temperature 99.3 F Pulse Rate 57 L 123 H 124 H Respiratory Rate 18 31 H 24 H Blood Pressure 165/76 H 151/106 H Pulse Oximetry 94 95 95 Oxygen Delivery Room Air Room Air Oxygen Flow Rate 06/14/24 12:32 06/14/24 12:33 06/14/24 12:35 Temperature Pulse Rate 121 H 115 H 115 H Respiratory Rate 16 20 18 Blood Pressure 157/65 H 157/65 H Pulse Oximetry 96 97 97 Oxygen Delivery Oxygen Flow Rate 06/14/24 12:45 06/14/24 12:46 06/14/24 13:00 Temperature Pulse Rate 118 H 118 H 118 H Respiratory Rate 20 20 23 H Blood Pressure 166/62 H Pulse Oximetry 95 94 Oxygen Delivery Oxygen Flow Rate 06/14/24 13:01 06/14/24 13:18 06/14/24 13:30 Temperature Pulse Rate 116 H 113 H Respiratory Rate 8 L 20 Blood Pressure 151/79 H Pulse Oximetry 96 92 Oxygen Delivery Oxygen Flow Rate 06/14/24 14:03 06/14/24 14:45 06/14/24 15:00 Temperature Pulse Rate 125 H 118 H 116 H Respiratory Rate 27 H 14 24 H Blood Pressure Pulse Oximetry 94 89 L 91 Oxygen Delivery Oxygen Flow Rate 06/14/24 15:01 06/14/24 15:15 06/14/24 15:16 Temperature Pulse Rate 118 H 116 H 118 H Respiratory Rate 19 17 19 Blood Pressure 133/111 H 154/135 H Pulse Oximetry 91 91 92 Oxygen Delivery Oxygen Flow Rate 06/14/24 15:30 06/14/24 15:45 06/14/24 15:46 Temperature Pulse Rate 117 H 119 H 116 H Respiratory Rate 21 H 21 H 18 Blood Pressure 126/60 Pulse Oximetry 89 L 93 94 Oxygen Delivery Oxygen Flow Rate 06/14/24 16:00 06/14/24 16:02 06/14/24 16:08 Temperature 103.4 F H Pulse Rate 114 H 115 H Respiratory Rate 19 20 Blood Pressure 132/64 Pulse Oximetry 89 L Oxygen Delivery Oxygen Flow Rate 06/14/24 16:11 06/14/24 16:15 06/14/24 16:18 Temperature Pulse Rate 118 H 107 H 102 H Respiratory Rate 19 20 Blood Pressure 149/60 H Pulse Oximetry 88 L 85 L Oxygen Delivery Oxygen Flow Rate 06/14/24 16:18 06/14/24 16:30 06/14/24 16:32 Temperature Pulse Rate 107 H 102 H Respiratory Rate 22 H 17 Blood Pressure 118/104 H Pulse Oximetry 85 L 96 97 Oxygen Delivery Room Air Oxygen Flow Rate 06/14/24 16:42 06/14/24 16:45 06/14/24 17:00 Temperature Pulse Rate 96 96 99 Respiratory Rate 22 H 17 20 Blood Pressure 112/67 Pulse Oximetry 97 97 97 Oxygen Delivery Oxygen Flow Rate 06/14/24 17:01 06/14/24 17:15 06/14/24 17:30 Temperature 103 F H Pulse Rate 99 115 H 96 Respiratory Rate 21 H 19 17 Blood Pressure 121/63 Pulse Oximetry 98 99 98 Oxygen Delivery Oxygen Flow Rate 06/14/24 17:45 06/14/24 18:00 06/14/24 18:15 Temperature Pulse Rate 96 95 94 Respiratory Rate 18 16 16 Blood Pressure Pulse Oximetry 97 98 Oxygen Delivery Oxygen Flow Rate 06/14/24 18:16 06/14/24 18:18 06/14/24 20:00 Temperature 101.3 F H Pulse Rate 94 Respiratory Rate 16 Blood Pressure 134/58 L Pulse Oximetry 93 95 Oxygen Delivery Nasal Cannula Room Air Oxygen Flow Rate 2 06/14/24 21:15 06/14/24 23:28 06/14/24 23:32 Temperature 100.0 F H 100.3 F H 100.3 F H Pulse Rate 130 H Respiratory Rate 22 H Blood Pressure 165/58 H Pulse Oximetry 95 Oxygen Delivery Oxygen Flow Rate 06/15/24 00:19 06/15/24 00:32 06/15/24 05:16 Temperature 98.3 F 98.8 F 98.2 F Pulse Rate 79 Respiratory Rate 20 Blood Pressure 133/65 Pulse Oximetry 98 Oxygen Delivery Oxygen Flow Rate Intake/Output Intake/Output: Intake & Output 06/12/24 06/13/24 06/14/24 06/15/24 23:59 23:59 23:59 23:59 Intake Total 600 900 Balance 600 900 Meds/Results Medications: Active Medications Generic Name Dose Route Start Last Admin Trade Name Freq PRN Reason Stop Dose Admin Acetaminophen 650 mg 06/14/24 16:55 06/14/24 23:32 Acetaminophen 325 Mg Tablet PO 650 mg Q4H PRN Administration Mild Pain (1-3) or Fever Amitriptyline HCl 25 mg 06/15/24 09:00 Amitriptyline Hcl 25 Mg Tablet PO DAILY [facility] Amlodipine Besylate 10 mg 06/15/24 09:00 Amlodipine Besylate 10 Mg Tablet BY MOUTH DAILY [facility] Atorvastatin Calcium 40 mg 06/15/24 09:00 Atorvastatin 40 Mg Tablet PO DAILY [facility] Bumetanide 2 mg 06/15/24 09:00 Bumetanide 1 Mg Tablet PO BID [facility] Finasteride 5 mg 06/15/24 09:00 Finasteride 5 Mg Tablet PO DAILY [facility] Gabapentin 300 mg 06/15/24 09:00 Gabapentin 300 Mg Capsule PO TID [facility] Hydralazine HCl 50 mg 06/15/24 09:00 Hydralazine Hcl 50 Mg Tablet PO BID [facility] Hydrochlorothiazide 25 mg 06/15/24 09:00 Hydrochlorothiazide 25 Mg Tablet PO DAILY [facility] Ceftriaxone Sodium 1 gm in 50 mls @ 100 mls/hr 06/15/24 17:00 Rocephin 1 Gm/Ns 50 Ml IVPB Q24H [facility] Metoprolol Succinate 50 mg 06/15/24 09:00 Metoprolol Succinate Ext Rel 50 Mg Tabcr PO DAILY [facility] Multivitamins Therapeutic 1 tablet 06/15/24 09:00 Multivitamins Therapeutic Tab (*Bkc) PO DAILY [facility] Pantoprazole Sodium 40 mg 06/15/24 09:00 Pantoprazole 40 Mg Tablet PO QAM [facility] Potassium Chloride 10 meq 06/15/24 09:00 Potassium Chloride 10 Meq Er Tablet PO DAILY [facility] Sacubitril/Valsartan 1 tablet 06/15/24 09:00 Sacubitril/Valsartan 49-51 Mg Tablet PO Q12HR [facility] Terazosin HCl 10 mg 06/15/24 09:00 Terazosin Hcl 5 Mg Capsule PO DAILY [facility] Radiology Results: ITS Impressions Abdomen/Pelvis CT 06/14/24 13:23 Impression: No definite etiology for hematuria identified. Mild bibasilar chronic interstitial disease. Small fat-containing umbilical hernia. Splenomegaly, of uncertain etiology. Chest X-Ray 06/14/24 13:28 IMPRESSION: 1. Cardiomegaly. Labs Labs: Laboratory Results - last 24 hr 06/14/24 06/14/24 06/14/24 12:31 12:55 12:56 WBC 14.0 H RBC 4.43 L Hgb 12.8 L Hct 39.4 L MCV 88.9 MCH 28.9 MCHC 32.5 RDW 14.2 Plt Count 161 MPV 10.5 H Immature Gran % (Auto) 0.5 Neut % (Auto) 83.1 H Lymph % (Auto) 8.9 L [place] % (Auto) 6.9 Eos % (Auto) 0.2 Baso % (Auto) 0.4 Lymph # (Auto) 1.25 [place] # (Auto) 1.0 H Eos # (Auto) 0.0 Baso # (Auto) 0.1 Abs Immat Gran (auto) 0.07 H Absolute Neuts (auto) 11.6 H Absolute Nucleated RBC 0.000 Nucleated RBC % 0.0 Sodium 137 Potassium 3.3 L Chloride 94 L Carbon Dioxide 30 Anion Gap 13 H BUN 38 H Creatinine 2.31 H Estim Creat Clear Calc 30 Estimated GFR 27 L Glucose 377 H Calcium 8.7 Magnesium 2.2 Total Bilirubin 1.0 AST 24 ALT 26 Alkaline Phosphatase 83 NT-Pro-B Natriuret Pep 1860 H Total Protein 7.0 Albumin 4.2 Urine Color Urine Appearance Urine pH Ur Specific [place] Urine Protein Urine Glucose (UA) Urine Ketones Ur Blood (Man) Urine Nitrate Urine Bilirubin Urine Urobilinogen Leukocyte Esterase Rfl Urine RBC Urine WBC Ur Squamous Epith Cells Urine Bacteria Urine Casts Influenza A (RT-PCR) Negative Influenza B (RT-PCR) Negative RSV (RT-PCR) Negative SARS-CoV-2 RNA (RT-PCR) Negative 06/14/24 14:27 WBC RBC Hgb Hct MCV MCH MCHC RDW Plt Count MPV Immature Gran % (Auto) Neut % (Auto) Lymph % (Auto) [place] % (Auto) Eos % (Auto) Baso % (Auto) Lymph # (Auto) [place] # (Auto) Eos # (Auto) Baso # (Auto) Abs Immat Gran (auto) Absolute Neuts (auto) Absolute Nucleated RBC Nucleated RBC % Sodium Potassium Chloride Carbon Dioxide Anion Gap BUN Creatinine Estim Creat Clear Calc Estimated GFR Glucose Calcium Magnesium Total Bilirubin AST ALT Alkaline Phosphatase NT-Pro-B Natriuret Pep Total Protein Albumin Urine Color Yellow Urine Appearance Cloudy H Urine pH 6.5 Ur Specific [place] 1.025 Urine Protein 3+ H Urine Glucose (UA) 3+ H Urine Ketones Negative Ur Blood (Man) 3+ H Urine Nitrate Negative Urine Bilirubin Negative Urine Urobilinogen 0.2 Leukocyte Esterase Rfl 1+ H Urine RBC 21-50 H Urine WBC >100 H Ur Squamous Epith Cells None seen Urine Bacteria 4+ H Urine Casts 0-2 Influenza A (RT-PCR) Influenza B (RT-PCR) RSV (RT-PCR) SARS-CoV-2 RNA (RT-PCR)
[2024-06-15] MEDS: MULTIVITAMINS THERAPEUTIC TAB (*BKC) 1 TABLET PO (08:56)
[2024-06-15] MEDS: POTASSIUM CHLORIDE 10 MEQ ER TABLET PO (08:56)
[2024-06-15] MEDS: amLODIPine BESYLATE 10 MG TABLET BY MOUTH (08:56)
[2024-06-15] MEDS: SACUBITRIL/VALSARTAN 49-51 MG TABLET 1 TABLET PO ×2 (08:56→20:57)
[2024-06-15] MEDS: BUMETANIDE 1 MG TABLET 2 MG PO ×2 (08:56→17:34)
[2024-06-15] MEDS: GABAPENTIN 300 MG CAPSULE PO ×3 (08:56→17:34)
[2024-06-15] MEDS: hydrALAZINE HCL 50 MG TABLET PO ×2 (08:56→17:34)
[2024-06-15 08:57] VITALS: PULSE 79
[2024-06-15] MEDS: ATORVASTATIN 40 MG TABLET PO (08:57)
[2024-06-15] MEDS: METOPROLOL SUCCINATE EXT REL 50 MG TABCR PO (08:57)
[2024-06-15] MEDS: AMITRIPTYLINE HCL 25 MG TABLET PO (08:57)
[2024-06-15] MEDS: hydroCHLOROthiazide 25 MG TABLET PO (08:57)
[2024-06-15] MEDS: PANTOPRAZOLE 40 MG TABLET PO (08:57)
[2024-06-15] MEDS: FINASTERIDE 5 MG TABLET PO (08:57)
[2024-06-15] MEDS: TERAZOSIN HCL 5 MG CAPSULE 10 MG PO (08:58)
[2024-06-15 13:32] LABS: Basophils Absolute Auto 0.1 K/mm3 (0.0-0.1); Basophils Percent Auto 0.5 % (0.2-1.2); Eosinophils Absolute Auto 0.1 K/mm3 (0-0.3); Eosinophils Percent Auto 0.8 % (0-4.4); Hemoglobin 12.1 g/dL (14.0-18.0); Immature Granulocyte Absolute 0.05 K/mm3 (0.00-0.031); Immature Granulocyte Percent A 0.5 % (0-0.5); Lymphocytes Absolute Auto 1.57 K/mm3 (0.9-3.2); Lymphocytes Percent Auto 15.7 % (18.3-44.2); Mean Corpuscular HGB Conc 32.7 g/dl (32-36); Mean Corpuscular Hemoglobin 29.2 pg (26-34); Mean Corpuscular Volume 89.2 fl (80-100); Mean Platelet Volume 10.4 fl (7.4-10.4); Monocytes Absolute Auto 0.8 K/mm3 (0.1-0.6); Monocytes Percent Auto 7.9 % (2.6-8.5); Neutrophils Absolute Auto 7.5 K/mm3 (1.3-6.7); Neutrophils Percent Auto 74.6 % (45.5-73.1); Platelet Count Result 141 k/mm3 (150-375); Red Blood Count 4.15 M/mm3 (4.6-6.20); Red Cell Distribution Width 14.1 % (11.5-14.5)
[2024-06-15 13:47] LABS: Alanine Aminotransferase 26 U/L (6-50); Albumin Level 3.9 g/dL (3.5-5.1); Alkaline Phosphatase 70 U/L (38-126); Anion Gap 11 mmol/L (4-12); Aspartate Amino Transferase 24 U/L (17-59); Bilirubin,Total 0.9 mg/dL (0.2-1.3); Blood Urea Nitrogen 41 mg/dL (9-20); Calcium 8.9 mg/dL (8.4-10.2); Carbon Dioxide 32 mmol/L (22-30); Chloride 95 mmol/L (98-107); Estimated CRCL calculation 28 ml/min; Estimated Glomerular Filt Rate 24; Glucose 312 mg/dL (65-110); Magnesium 2.3 mg/dL (1.6-2.3); Potassium 3.5 mmol/L (3.4-5.0); Sodium 138 mmol/L (137-145)
[2024-06-15 14:00] VITALS: BP 108/64; PULSE 92; RESP 20; TEMP 37.7; O2SAT 96
--- NOTE | 2024-06-15 14:42 | PC.NURSE ---
RN spoke with Dr. Rossy bills the plan and pt will be staying another night if things go well he will be DC maybe tomorrow
[2024-06-15 20:55] VITALS: BP 127/51; PULSE 94; RESP 16; TEMP 36.9; O2SAT 94
[2024-06-16 05:47] VITALS: BP 118/56; PULSE 78; RESP 12; TEMP 36.4; O2SAT 97
[2024-06-16 06:16] LABS: Anion Gap 10 mmol/L (4-12); Blood Urea Nitrogen 49 mg/dL (9-20); Calcium 8.7 mg/dL (8.4-10.2); Carbon Dioxide 31 mmol/L (22-30); Chloride 95 mmol/L (98-107); Estimated CRCL calculation 26 ml/min; Estimated Glomerular Filt Rate 23; Glucose 255 mg/dL (65-110); Magnesium 2.4 mg/dL (1.6-2.3); Potassium 2.9 mmol/L (3.4-5.0); Sodium 136 mmol/L (137-145)
[2024-06-16 06:30] LABS: Basophils Absolute Auto 0.1 K/mm3 (0.0-0.1); Basophils Percent Auto 0.7 % (0.2-1.2); Eosinophils Absolute Auto 0.3 K/mm3 (0-0.3); Eosinophils Percent Auto 3.8 % (0-4.4); Hematocrit 34.4 % (42.0-52.0); Hemoglobin 11.5 g/dL (14.0-18.0); Immature Granulocyte Absolute 0.03 K/mm3 (0.00-0.031); Immature Granulocyte Percent A 0.4 % (0-0.5); Lymphocytes Absolute Auto 1.96 K/mm3 (0.9-3.2); Lymphocytes Percent Auto 23.5 % (18.3-44.2); Mean Corpuscular HGB Conc 33.4 g/dl (32-36); Mean Corpuscular Hemoglobin 29.8 pg (26-34); Mean Corpuscular Volume 89.1 fl (80-100); Mean Platelet Volume 11.2 fl (7.4-10.4); Monocytes Absolute Auto 0.8 K/mm3 (0.1-0.6); Monocytes Percent Auto 9.7 % (2.6-8.5); Neutrophils Absolute Auto 5.2 K/mm3 (1.3-6.7); Neutrophils Percent Auto 61.9 % (45.5-73.1); Platelet Count Result 150 k/mm3 (150-375); Red Blood Count 3.86 M/mm3 (4.6-6.20); White Blood Count 8.3 K/mm3 (4.5-10.0)
[2024-06-16 09:59] VITALS: PULSE 78
[2024-06-16] MEDS: METOPROLOL SUCCINATE EXT REL 50 MG TABCR PO (09:59)
[2024-06-16] MEDS: TERAZOSIN HCL 5 MG CAPSULE 10 MG PO (09:59)
[2024-06-16] MEDS: POTASSIUM CHLORIDE 10 MEQ ER TABLET PO (09:59)
[2024-06-16] MEDS: BUMETANIDE 1 MG TABLET 2 MG PO ×2 (09:59→17:24)
[2024-06-16] MEDS: GABAPENTIN 300 MG CAPSULE PO (09:59)
[2024-06-16] MEDS: hydroCHLOROthiazide 25 MG TABLET PO (09:59)
[2024-06-16] MEDS: SACUBITRIL/VALSARTAN 49-51 MG TABLET 1 TABLET PO ×2 (09:59→21:22)
[2024-06-16] MEDS: hydrALAZINE HCL 50 MG TABLET PO ×2 (09:59→17:24)
[2024-06-16] MEDS: PANTOPRAZOLE 40 MG TABLET PO (09:59)
[2024-06-16] MEDS: amLODIPine BESYLATE 10 MG TABLET BY MOUTH (09:59)
[2024-06-16] MEDS: ATORVASTATIN 40 MG TABLET PO (09:59)
[2024-06-16] MEDS: MULTIVITAMINS THERAPEUTIC TAB (*BKC) 1 TABLET PO (10:00)
[2024-06-16] MEDS: FINASTERIDE 5 MG TABLET PO (10:00)
[2024-06-16] MEDS: AMITRIPTYLINE HCL 25 MG TABLET PO (10:00)
--- NOTE | 2024-06-16 10:30 | PHAR ---
Pharmacy verified home med: * Use from home * Semaglutide (Ozempic) 2 mg/3 mL once weekly pen - inject 0.5 mg (0.75 mL) subQ once weekly on
[2024-06-16] MEDS: SEMAGLUTIDE 2 MG/3 ML 0.5 EACH SUB-Q (11:40)
--- NOTE | 2024-06-16 12:15 | P.PNIM_ITS ---
Progress Note: A&P Assessment and Plan (1) Acute UTI: Code(s): N39.0 - Urinary tract infection, site not specified Status: Acute Assessment and Plan: Gram-negative bacilli and urine culture. Continue with ceftriaxone. (2) Hematuria: Code(s): R31.9 - Hematuria, unspecified Status: Acute Assessment and Plan: Resolved. (3) Hypoxia: Code(s): R09.02 - Hypoxemia Status: Acute Assessment and Plan: Stable on current meds. (4) Hypokalemia: Code(s): E87.6 - Hypokalemia Status: Acute Assessment and Plan: Replace and monitor. (5) Sepsis: Code(s): A41.9 - Sepsis, unspecified organism Status: Acute Assessment and Plan: Continue ceftriaxone wait for culture reports. Plan This is a very pleasant 78-year-old male with a past medical history MARY on CPAP, heart failure reduced ejection fraction, insulin-dependent diabetes mellitus, obesity, hyperlipidemia, hypertension, prior tobacco abuse CAD status post CABG, status post bioprosthetic aortic valve replacement CKD stage 4, secondary hyperparathyroidism, chronic low back pain. Patient presents with a few days of weakness and hematuria with painful urination. He reports blood in the urine was dark, unclear if there were clots. Also reports his felt he had a fever at home. On the day of admission in [place] [facility] on 06/14/2024 a fever of 103.4 with documented. Transient tachycardia. Transiently hypoxic. Chest x-ray with cardiomegaly, CT abdomen pelvis without contrast did not demonstrate any masses or obvious etiology for hematuria, mild bibasilar chronic interstitial disease, small umbilical hernia, splenomegaly. WBC 14, hemoglobin 12.8, potassium 3.3, BUN 38, serum creatinine 2.31, glucose 377, magnesium 2.2 BNP pending, urinalysis 3+ blood, 1+ leukocyte esterase, 21-50 RBC, greater than 100 WBC, 4+ bacteria. No gross hematuria observed since admission. Quad viral screen negative. He was given 1 L normal saline, ceftriaxone 2 g IV x1, metoprolol tartrate 5 mg IV x2, Tylenol 1000 mg p.o. x1. Sepsis with tachycardia fever leukocytosis due to UTI. Blood culture pending. On ceftriaxone which will be continued. UTI: Ceftriaxone. Follow urine culture Hem[facility] urology consulted Generalized weakness-likely due to acute infection. PTOT eval. Fall precautions ambulate with assistance. Transient hypoxia -95% on room air now. Continue to monitor Heart failure reduced ejection fraction-has slight lower extremity edema otherwise appears compensated. Now on room air. Restart [employer] medications CKD stage 4 -restart [employer] medications, renally dose new medications. Trend BNP MARY CPAP -CPAP ordered Diabetes. A.c. HS with sliding insulin sliding scale and restart [employer] insulin. CAD status post CABG/hyperlipidemia -resume [employer] medications Hypokalemia -replace. Recheck. DVT prophylaxis: SCDs. Hold pharmacological prophylaxis due to hematuria Diet: Heart healthy diabetic diet with Accu-Cheks a.c. HS Code status: Patient wishes to be full code Subjective Date/time seen: 06/16/24 12:15 Interval history: Patient was seen during the morning rounds today. No new overnight complaints. Feeling better. No abdominal pain or nausea vomiting. No shortness of breath or chest pain. No further hematuria. Review of Systems Review of Systems: All systems reviewed & are unremarkable except as noted in HPI and below (HPI) Exam Narrative: GENERAL:[No acute distress, non-toxic appearing.] HEAD: Normal with no signs of head trauma. EYES: EOMI, conjunctiva normal ENT: Hearing grossly intact LUNGS: Nonlabored breathing. HEART: Regular rate rhythm, ABD: [Soft], nontender, EXT: Normal range of motion SKIN: [No rashes or lesions.] NEURO: [Alert. No gross focal sensory or strength deficits.] PSYCH: Normal affect Const: General: comfortable and no acute distress Other: A&O x3 HENMT: Mouth: Yes moist mucous membranes Eyes: Pupils: Equal, round and reactive pupils present Neck: Neck: supple Resp: Effort & Inspection: normal respiratory effort Auscultation: clear to auscultation bilaterally Cardio: Rate: regular rate Rhythm: regular rhythm : General: Yes bladder normal to palpation Neuro: Cranial nerves: Yes Equal, round and reactive pupils present Extrem: Other: 1+ pitting edema bilateral lower extremi ties below the knees Objective Data Vital Signs Vital Signs: Vital Signs - 24 hr 06/15/24 14:00 06/15/24 20:00 06/15/24 20:55 Temperature 37.7 C H 36.9 C Pulse Rate 92 94 Respiratory Rate 20 16 Blood Pressure 108/64 127/51 L Pulse Oximetry 96 94 Oxygen Delivery Room Air 06/16/24 05:47 06/16/24 08:00 06/16/24 09:59 Temperature 36.4 C L Pulse Rate 78 78 Respiratory Rate 12 Blood Pressure 118/56 L Pulse Oximetry 97 Oxygen Delivery Room Air Intake/Output Intake/Output: Intake & Output 06/13/24 06/14/24 06/15/24 06/16/24 23:59 23:59 23:59 23:59 Intake Total 600 3430 790 Balance 600 3430 790 Meds/Results Medications: Active Medications Generic Name Dose Route Start Last Admin Trade Name Freq PRN Reason Stop Dose Admin Acetaminophen 650 mg 06/14/24 16:55 06/14/24 23:32 Acetaminophen 325 Mg Tablet PO 650 mg Q4H PRN Administration Mild Pain (1-3) or Fever Amitriptyline HCl 25 mg 06/15/24 09:00 06/16/24 10:00 Amitriptyline Hcl 25 Mg Tablet PO 25 mg DAILY [facility] Administration Amlodipine Besylate 10 mg 06/15/24 09:00 06/16/24 09:59 Amlodipine Besylate 10 Mg Tablet BY MOUTH 10 mg DAILY [facility] Administration Atorvastatin Calcium 40 mg 06/15/24 09:00 06/16/24 09:59 Atorvastatin 40 Mg Tablet PO 40 mg DAILY [facility] Administration Bumetanide 2 mg 06/15/24 09:00 06/16/24 09:59 Bumetanide 1 Mg Tablet PO 2 mg BID [facility] Administration Finasteride 5 mg 06/15/24 09:00 06/16/24 10:00 Finasteride 5 Mg Tablet PO 5 mg DAILY [facility] Administration Gabapentin 300 mg 06/15/24 09:00 06/16/24 09:59 Gabapentin 300 Mg Capsule PO 300 mg TID [facility] Administration Hydralazine HCl 50 mg 06/15/24 09:00 06/16/24 09:59 Hydralazine Hcl 50 Mg Tablet PO 50 mg BID [facility] Administration Hydrochlorothiazide 25 mg 06/15/24 09:00 06/16/24 09:59 Hydrochlorothiazide 25 Mg Tablet PO 25 mg DAILY [facility] Administration Ceftriaxone Sodium 1 gm in 50 mls @ 100 mls/hr 06/15/24 17:00 06/15/24 18:04 Rocephin 1 Gm/Ns 50 Ml IVPB Infused Q24H [facility] Infusion Metoprolol Succinate 50 mg 06/15/24 09:00 06/16/24 09:59 Metoprolol Succinate Ext Rel 50 Mg Tabcr PO 50 mg DAILY [facility] Administration Multivitamins Therapeutic 1 tablet 06/15/24 09:00 06/16/24 10:00 Multivitamins Therapeutic Tab (*Bkc) PO 1 tablet DAILY [facility] Administration * Home Med * 0.5 mg 06/16/24 10:25 06/16/24 11:40 Semaglutide (Ozempic SUB-Q 07/16/24 10:24 0.5 mg ) 2 Mg/3 Ml Once Th@0900 [facility] Administration Weekly Pen Pantoprazole Sodium 40 mg 06/15/24 09:00 06/16/24 09:59 Pantoprazole 40 Mg Tablet PO 40 mg QAM [facility] Administration Potassium Chloride 10 meq 06/15/24 09:00 06/16/24 09:59 Potassium Chloride 10 Meq Er Tablet PO 10 meq DAILY [facility] Administration Potassium Chloride 40 meq 06/16/24 12:11 Potassium Chloride 20 Meq Er Tablet PO 06/16/24 12:12 ONCE ONE Sacubitril/Valsartan 1 tablet 06/15/24 09:00 06/16/24 09:59 Sacubitril/Valsartan 49-51 Mg Tablet PO 1 tablet Q12HR [facility] Administration Terazosin HCl 10 mg 06/15/24 09:00 06/16/24 09:59 Terazosin Hcl 5 Mg Capsule PO 10 mg DAILY [facility] Administration Radiology Results: ITS Impressions Abdomen/Pelvis CT 06/14/24 13:23 Impression: No definite etiology for hematuria identified. Mild bibasilar chronic interstitial disease. Small fat-containing umbilical hernia. Splenomegaly, of uncertain etiology. Chest X-Ray 06/14/24 13:28 IMPRESSION: 1. Cardiomegaly. Labs Labs: Laboratory Results - last 24 hr 06/15/24 06/16/24 13:19 05:38 WBC 10.0 8.3 RBC 4.15 L 3.86 L Hgb 12.1 L 11.5 L Hct 37.0 L 34.4 L MCV 89.2 89.1 MCH 29.2 29.8 MCHC 32.7 33.4 RDW 14.1 14.0 Plt Count 141 L 150 MPV 10.4 11.2 H Immature Gran % (Auto) 0.5 0.4 Neut % (Auto) 74.6 H 61.9 Lymph % (Auto) 15.7 L 23.5 [place] % (Auto) 7.9 9.7 H Eos % (Auto) 0.8 3.8 Baso % (Auto) 0.5 0.7 Lymph # (Auto) 1.57 1.96 [place] # (Auto) 0.8 H 0.8 H Eos # (Auto) 0.1 0.3 Baso # (Auto) 0.1 0.1 Abs Immat Gran (auto) 0.05 H 0.03 Absolute Neuts (auto) 7.5 H 5.2 Absolute Nucleated RBC 0.000 0.000 Nucleated RBC % 0.0 0.0 Sodium 138 136 L Potassium 3.5 2.9 L Chloride 95 L 95 L Carbon Dioxide 32 H 31 H Anion Gap 11 10 BUN 41 H 49 H Creatinine 2.57 H 2.70 H Estim Creat Clear Calc 28 26 Estimated GFR 24 L 23 L Glucose 312 H 255 H Calcium 8.9 8.7 Magnesium 2.3 2.4 H Total Bilirubin 0.9 AST 24 ALT 26 Alkaline Phosphatase 70 Total Protein 7.0 Albumin 3.9
[2024-06-16] MEDS: POTASSIUM CHLORIDE 20 MEQ ER TABLET 40 MEQ PO (12:59)
[2024-06-16 14:00] VITALS: BP 126/78; PULSE 69; RESP 16; TEMP 36.6; O2SAT 98
--- NOTE | 2024-06-16 14:04 | PC.NURSE ---
RN spoke with Dr. Kelley regarding pt gabapentin being put in the chart incorrectly during admission. Pt takes 900mg TID. The medication has been updated. Rn also informed Dr. Kelley that pt is very anxious since he is staying another night so Dr. Kelley prescribed something for anxiety.
[2024-06-16] MEDS: GABAPENTIN 300 MG CAPSULE 900 MG PO ×2 (14:33→21:22)
[2024-06-16] MEDS: ALPRAZolam (*CRX) 0.5 MG TABLET PO ×2 (14:35→21:25)
[2024-06-16] MEDS: MEROPENEM 1 GM/NS 100 ML 1 GM/100 ML BAG IVPB (17:24)
[2024-06-16] MEDS: HEPARIN SODIUM 5,000 UNITS/ML VIAL 5000 UNITS SUB-Q (21:22)
[2024-06-16 21:59] VITALS: BP 137/61; PULSE 89; RESP 18; TEMP 36.6; O2SAT 96
[2024-06-17] MEDS: MEROPENEM 1 GM/NS 100 ML 1 GM/100 ML BAG IVPB (03:04)
[2024-06-17] MEDS: ALPRAZolam (*CRX) 0.5 MG TABLET PO ×2 (03:04→09:41)
[2024-06-17 05:33] VITALS: BP 128/53; PULSE 71; RESP 22; TEMP 36.3; O2SAT 100
[2024-06-17] MEDS: GABAPENTIN 300 MG CAPSULE 900 MG PO (06:01)
[2024-06-17 08:12] LABS: Alanine Aminotransferase 26 U/L (6-50); Albumin Level 3.9 g/dL (3.5-5.1); Alkaline Phosphatase 74 U/L (38-126); Anion Gap 10 mmol/L (4-12); Aspartate Amino Transferase 23 U/L (17-59); Bilirubin,Total 0.6 mg/dL (0.2-1.3); Blood Urea Nitrogen 52 mg/dL (9-20); Calcium 9.1 mg/dL (8.4-10.2); Carbon Dioxide 32 mmol/L (22-30); Chloride 96 mmol/L (98-107); Estimated CRCL calculation 29 ml/min; Estimated Glomerular Filt Rate 26; Glucose 255 mg/dL (65-110); Potassium 3.3 mmol/L (3.4-5.0); Sodium 138 mmol/L (137-145)
[2024-06-17 08:52] LABS: Glucose Point of Care 280 mg/dl (65-105)
--- NOTE | 2024-06-17 09:11 | PM.DS ---
DS: Admitting Diagnosis Discharge Date 06/17/2024 Admitting Diagnosis UTI DS: Discharge Diagnosis Discharge Diagnosis (1) Acute UTI: Code(s): N39.0 - Urinary tract infection, site not specified Status: Acute Assessment and Plan: Gram-negative bacilli and urine culture. Continue with ceftriaxone. (2) Hematuria: Code(s): R31.9 - Hematuria, unspecified Status: Acute Assessment and Plan: Resolved. (3) Hypoxia: Code(s): R09.02 - Hypoxemia Status: Acute Assessment and Plan: Stable on current meds. (4) Hypokalemia: Code(s): E87.6 - Hypokalemia Status: Acute Assessment and Plan: Replace and monitor. (5) Sepsis: Code(s): A41.9 - Sepsis, unspecified organism Status: Acute Assessment and Plan: Continue ceftriaxone wait for culture reports. Plan This is a very pleasant 78-year-old male with a past medical history MARY on CPAP, heart failure reduced ejection fraction, insulin-dependent diabetes mellitus, obesity, hyperlipidemia, hypertension, prior tobacco abuse CAD status post CABG, status post bioprosthetic aortic valve replacement CKD stage 4, secondary hyperparathyroidism, chronic low back pain. Patient presents with a few days of weakness and hematuria with painful urination. He reports blood in the urine was dark, unclear if there were clots. Also reports his felt he had a fever at home. On the day of admission in [facility] on 06/14/2024 a fever of 103.4 with documented. Transient tachycardia. Transiently hypoxic. Chest x-ray with cardiomegaly, CT abdomen pelvis without contrast did not demonstrate any masses or obvious etiology for hematuria, mild bibasilar chronic interstitial disease, small umbilical hernia, splenomegaly. WBC 14, hemoglobin 12.8, potassium 3.3, BUN 38, serum creatinine 2.31, glucose 377, magnesium 2.2 BNP pending, urinalysis 3+ blood, 1+ leukocyte esterase, 21-50 RBC, greater than 100 WBC, 4+ bacteria. No gross hematuria observed since admission. Quad viral screen negative. He was given 1 L normal saline, ceftriaxone 2 g IV x1, metoprolol tartrate 5 mg IV x2, Tylenol 1000 mg p.o. x1. Sepsis with tachycardia fever leukocytosis due to UTI. Blood culture pending. On ceftriaxone which will be continued. UTI: Ceftriaxone. Follow urine culture Hematuria urology consulted Generalized weakness-likely due to acute infection. PTOT eval. Fall precautions ambulate with assistance. Transient hypoxia -95% on room air now. Continue to monitor Heart failure reduced ejection fraction-has slight lower extremity edema otherwise appears compensated. Now on room air. Restart [employer] medications CKD stage 4 -restart [employer] medications, renally dose new medications. Trend BNP MARY CPAP -CPAP ordered Diabetes. A.c. HS with sliding insulin sliding scale and restart [employer] insulin. CAD status post CABG/hyperlipidemia -resume [employer] medications Hypokalemia -replace. Recheck. DVT prophylaxis: SCDs. Hold pharmacological prophylaxis due to hematuria Diet: Heart healthy diabetic diet with Accu-Cheks a.c. HS Code status: Patient wishes to be full code DS: Summary Hospital Course Reason for hospitalization: UTI Hospital Course: 78 years old male was admitted with complaint of having burning urination. Patient was found to have UTI. Patient was given IV antibiotics. Continue to trend culture showed patient had E coli sensitive to penicillin. Patient was continued on his home medication for high blood pressure. Patient did not have any complication during the stay in the hospital. Today patient is feeling better and was discharged home stable condition. Follow-up scheduled with primary care. Repeat BMP to check potassium next week. Status at Discharge Cognitive/behavioral status at discharge: Stable Time Spent with Patient Time attestation: Total time spent providing and/or coordinating discharge services: 30 minutes Exam Narrative: GENERAL:[No acute distress, non-toxic appearing.] HEAD: Normal with no signs of head trauma. EYES: EOMI, conjunctiva normal ENT: Hearing grossly intact LUNGS: Nonlabored breathing. HEART: Regular rate rhythm, ABD: [Soft], nontender, EXT: Normal range of motion SKIN: [No rashes or lesions.] NEURO: [Alert. No gross focal sensory or strength deficits.] PSYCH: Normal affect Const: General: comfortable and no acute distress Other: A&O x3 HENMT: Mouth: Yes moist mucous membranes Eyes: Pupils: Equal, round and reactive pupils present Neck: Neck: supple Resp: Effort & Inspection: normal respiratory effort Auscultation: clear to auscultation bilaterally Cardio: Rate: regular rate Rhythm: regular rhythm : General: Yes bladder normal to palpation Neuro: Cranial nerves: Yes Equal, round and reactive pupils present Extrem: Other: 1+ pitting edema bilateral lower extremities below the knees DS: Data Data Completed and Pending Labs on day of discharge: Labs from last 24 hours 06/17/24 06/17/24 08:49 06:45 Sodium 138 Potassium 3.3 L Chloride 96 L Carbon Dioxide 32 H Anion Gap 10 BUN 52 H Creatinine 2.45 H Estim Creat Clear Calc 29 Estimated GFR 26 L Glucose 255 H POC Capillary Glucose 280 H Calcium 9.1 Total Bilirubin 0.6 AST 23 ALT 26 Alkaline Phosphatase 74 Total Protein 7.0 Albumin 3.9 Preliminary micro results at discharge 06/14/24 20:28 Blood Culture - Preliminary Blood 06/14/24 20:28 Blood Culture - Preliminary Blood Discharge Plan Discharge Attending physician on discharge: Ramiro Kelley Discharging Clinician: Ramiro Kelley Activity: as tolerated Diet: as tolerated, heart healthy and renal Patient Language: Setswana Discharge Medications: New amoxicillin-pot clavulanate [Augmentin] 500-125 mg Tablet 1 tablet PO BID Qty: 14 0RF Continued aspirin [Adult Aspirin Regimen] 81 mg tablet,delayed release (DR/EC) 81 mg PO DAILY alpha lipoic acid 600 mg Capsule 600 mg PO HS bumetanide 2 mg tablet 2 mg PO BID clopidogrel 75 mg tablet 75 mg PO DAILY hydrochlorothiazide 25 mg tablet 25 mg PO DAILY Qty: 90 3RF amlodipine 10 mg tablet See Rx Instructions .ROUTE .COMPLEX Qty: 90 3RF Dose Instruction: TAKE 1 TABLET EVERY DAY Rx Instructions: TAKE 1 TABLET EVERY DAY finasteride 5 mg tablet 5 mg PO DAILY Qty: 90 3RF Humulin R U-500 (Conc) Kwikpen 500 unit/mL (3 mL) insulin pen See Rx Instructions subcut TID Qty: 20 3RF Rx Instructions: sliding scale subcutaneously three times a day as directed up to 300U daily omeprazole 20 mg capsule,delayed release(DR/EC) 20 mg PO DAILY Qty: 90 3RF dapagliflozin propanediol [Farxiga] 10 mg tablet 10 mg PO DAILY Qty: 90 3RF terazosin 10 mg capsule 10 mg PO DAILY Qty: 90 3RF ergocalciferol (vitamin D2) 1,250 mcg (50,000 unit) capsule See Rx Instructions .ROUTE .COMPLEX Qty: 13 3RF Dose Instruction: TAKE 1 CAPSULE ONE TIME WEEKLY Rx Instructions: TAKE 1 CAPSULE ONE TIME WEEKLY potassium chloride [Klor-Con 10] 10 mEq tablet extended release 10 meq PO DAILY Qty: 30 8RF atorvastatin [Lipitor] 40 mg tablet 40 mg PO DAILY amitriptyline 25 mg tablet 25 mg PO DAILY Qty: 30 0RF sacubitril-valsartan [Entresto] 49-51 mg tablet 1 tablet PO BID Qty: 60 0RF Ozempic 0.25 mg or 0.5 mg (2 mg/3 mL) pen injector 0.5 mg subcut WEEKLY Qty: 1 0RF Rx Instructions: for 4 weeks takes 06/15/24 metoprolol succinate 50 mg tablet extended release 24 hr 50 mg PO DAILY Qty: 30 0RF multivitamin [Multiple Vitamins] Tablet 1 tablet PO DAILY Qty: 30 0RF Verquvo 10 mg tablet 10 mg PO DAILY Qty: 30 0RF Rx Instructions: must administer with a meal/food hydralazine 50 mg tablet 50 mg PO BID Qty: 60 0RF gabapentin 300 mg capsule 900 mg PO TID Qty: 120 0RF No Action calcitriol 0.25 mcg capsule 0.25 mcg PO 3XW Qty: 60 3RF Rx Instructions: administer after dialysis on dialysis days Date of admission: 06/14/24 16:55 Primary Care Provider: Rafa Chavez Admitting Provider: Aneudy Cordero Attending physician on admission: Aneudy Cordero Condition: Serious
[2024-06-17 09:39] VITALS: PULSE 58
[2024-06-17] MEDS: METOPROLOL SUCCINATE EXT REL 50 MG TABCR PO (09:39)
[2024-06-17] MEDS: amLODIPine BESYLATE 10 MG TABLET BY MOUTH (09:40)
[2024-06-17] MEDS: MULTIVITAMINS THERAPEUTIC TAB (*BKC) 1 TABLET PO (09:40)
[2024-06-17] MEDS: SACUBITRIL/VALSARTAN 49-51 MG TABLET 1 TABLET PO (09:40)
[2024-06-17] MEDS: BUMETANIDE 1 MG TABLET 2 MG PO (09:40)
[2024-06-17] MEDS: TERAZOSIN HCL 5 MG CAPSULE 10 MG PO (09:40)
[2024-06-17] MEDS: PANTOPRAZOLE 40 MG TABLET PO (09:40)
[2024-06-17] MEDS: hydroCHLOROthiazide 25 MG TABLET PO (09:40)
[2024-06-17] MEDS: ATORVASTATIN 40 MG TABLET PO (09:40)
[2024-06-17] MEDS: POTASSIUM CHLORIDE 10 MEQ ER TABLET PO (09:41)
[2024-06-17] MEDS: HEPARIN SODIUM 5,000 UNITS/ML VIAL 5000 UNITS SUB-Q (09:42)
[2024-06-17] MEDS: hydrALAZINE HCL 50 MG TABLET PO (09:42)
[2024-06-17] MEDS: FINASTERIDE 5 MG TABLET PO (09:44)
[2024-06-17] MEDS: POTASSIUM CHLORIDE 20 MEQ ER TABLET 40 MEQ PO (09:50)
== END 2024-06-17 11:30 | disposition home or self-care (01) ==
LOC: ANHED 17:01 → ANH3MEDSUR 06-15 14:55
PROVIDERS: General Practice; Internal Medicine; Admitting Provider Hospitalist; Emergency Provider Emergency Medicine; PCP Internal Medicine; Visit Provider Internal Medicine
DX: A41.9 Sepsis, unspecified organism (principal); N39.0 Urinary tract infection, site not specified; R31.9 Hematuria, unspecified; R41.0 Disorientation, unspecified; R53.1 Weakness; R09.02 Hypoxemia; E87.6 Hypokalemia; I13.0 Hypertensive heart and chronic kidney disease with heart failure and stage 1 through stage 4 chronic kidney disease, or unspecified chronic kidney disease; I50.22 Chronic systolic (congestive) heart failure; N18.4 Chronic kidney disease, stage 4 (severe); E11.22 Type 2 diabetes mellitus with diabetic chronic kidney disease; I25.10 Atherosclerotic heart disease of native coronary artery without angina pectoris; G47.33 Obstructive sleep apnea (adult) (pediatric); E78.5 Hyperlipidemia, unspecified; I27.20 Pulmonary hypertension, unspecified; K21.9 Gastro-esophageal reflux disease without esophagitis; N25.81 Secondary hyperparathyroidism of renal origin; M54.50 Low back pain, unspecified; E66.9 Obesity, unspecified; Z68.41 Body mass index [BMI] 40.0-44.9, adult; Z20.822 Contact with and (suspected) exposure to COVID-19; Z87.891 Personal history of nicotine dependence; Z99.89 Dependence on other enabling machines and devices; Z79.82 Long term (current) use of aspirin; Z79.4 Long term (current) use of insulin; Z79.84 Long term (current) use of oral hypoglycemic drugs; Z79.85 Long-term (current) use of injectable non-insulin antidiabetic drugs; Z95.1 Presence of aortocoronary bypass graft; Z95.3 Presence of xenogenic heart valve
CPT/HCPCS: 36415; 71045; 74176; 80048; 80053; 81001; 82948; 83735; 83880; 85025; 87040; 87077; 87086; 87186; 87637; 93005; 96365; 96366; 96367; 96375; 97161; 97165; 99285; A9270; G0378; J0696; J1644; J2185; J7120

== ENCOUNTER 2024-06-22 13:42 | Outpatient (CLI) | payer MEDICARE, SELFPAY ==
--- OUTSIDE RECORDS SUMMARY | 2024-06-22 13:51 | XMS_ITS | Clinical Summary ---
Author Organization [facility] Address [address] [place] [address] Care Team Providers Care Engine Turner Name Role Phone Yfn Gill MD Unavailable [phone] Aguila Chris MD Unavailable [phone] Malcolm Castro MD Unavailable [phone] Neeraj La MD Unavailable [phone] Rafa Chavez DO Primary Care Provider [phone] Allergies Active Allergy Reactions Criticality Noted Date [...] 1 tablet (300 mg total) by mouth typewriter aligner before breakfast 0 Active alpha lipoic acid [...] (06/09/2022): Added automatically from request for surgery [id number] Carotid stenosis, right 01/07/2022 Overview (01/07/2022): Added automatically from request for surgery [id number] Assessment & Plan (04/19/2023 1:00 PM ALUMINUM SHINGLE ROOFER): Status post TCAR. Stent patent. Continue anti-platelet therapy follow-up 6 months. Assessment & Plan (03/12/2022 5:16 PM ALUMINUM SHINGLE ROOFER): Impression: Patient is status post right TCAR. [...] (02/05/2020): Added automatically from request for surgery [id number] Hx of colonic polyps 10/10/2019 Overview (10/10/2019): Added automatically from request for surgery [id number] History of colon polyps 07/10/2019 Overview (07/10/2019): Added automatically from request for surgery [id number] Hypertension associated with diabetes 06/29/2019 Assessment & Plan (06/08/2024 2:36 PM ALUMINUM SHINGLE ROOFER): Chronic problem, Controlled on metoprolol, Entresto, HCTZ, bumetanide, hydralazine, amlodipine. No changes. Assessment & Plan (04/19/2023 1:00 PM ALUMINUM SHINGLE ROOFER): Hypertension chronic controlled. Continue current medical management [...] actual BMI) Coronary artery disease invo lving [place] coronary artery of [place] heart without angina pectoris 05/06/2015 Overview (08/07/2016): Coronary artery disease involving [place] coronary artery of [place] heart without angina pectoris Assessment & Plan (01/07/2022 3:00 PM CDT): Stable. Continue medical therapy. Mixed diabetic hyperlipidemi a associated with type 2 diabetes mellitus ([facility]) 05/06/2015 Overview (08/07/2016): Type 2 diabetes mellitus with complication Assessment & Plan (06/08/2024 2:36 PM ALUMINUM SHINGLE ROOFER): Chronic problem. On statin therapy, no changes. Assessment & Plan (04/19/2023 1:00 PM ALUMINUM SHINGLE ROOFER): Hyperlipidemia chronic and controlled. Continue current medical [...] complication Assessment & Plan (06/08/2024 2:37 PM ALUMINUM SHINGLE ROOFER): Chronic problem, improving but not at goal. [...] to his insulin regimen Disorder of aorta ([facility]) 10/20/2013 Aortic valve stenosis 10/19/2013 Resolved Problems [...] Department Care Team Description 06/13/2024 Orders Only [facility] Diabetes and Endocrinology [facility] [place] [address] ProviderNelson MD 06/08/2024 1:18 PM ALUMINUM SHINGLE ROOFER - 06/08/2024 11:59 PM ALUMINUM SHINGLE ROOFER Hospital Encounter [facility] [id number] [place] [id number] Type 2 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 disease, with long-term current use of insulin (HCC) Discharge Disposition: Discharge to home or self care 06/08/2024 1:15 PM ALUMINUM SHINGLE ROOFER [facility] [id number] [place] [address] [address] [address] Terra Joiner PA Type 2 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 disease, with long-term current use of insulin (HCC) (Primary Dx); Hypertension associated with diabetes (HCC); Mixed diabetic hyperlipidemia associated with type 2 diabetes mellitus (CMS/HCC) (HCC) 06/02/2024 1:00 PM ALUMINUM SHINGLE ROOFER Office Visit [facility] Cardiology [address] [place] [address] [place] [phone] Malu Solomon NP Edema, lower extremity (Primary Dx); Chronic combined systolic and diastolic CHF (congestive heart failure) (CMS/HCC) (HCC); Stage 3b chronic kidney disease (HCC) 06/01/2024 Telephone [facility] Cardiology [address] [place] [address] [address] [place] [phone] Nabil Harding MD 05/12/2024 Documentation [facility] Cardiology [address] [place] [address] [address] [place] [phone] Shila Bowers MA 05/10/2024 8:30 AM ALUMINUM SHINGLE ROOFER Office Visit [facility] Cardiology [address] [place] [address] [address] [place] [phone] Nabil Harding MD Coronary artery disease involving [place] coronary artery of [place] heart without angina pectoris (Primary Dx); S/P CABG x 2; Cardiomyopathy, ischemic; S/P angioplasty with stent; Chronic systolic congestive heart failure (CMS/HCC) ([facility]); S/P aortic valve replacement with bioprosthetic valve; Hypertension associated with diabetes ([facility]); Stage 3b chronic kidney disease ([facility]); Morbid obesity with BMI of 40.0-44.9, adult ([facility]); MARY on CPAP 05/10/2024 Telephone [facility] Cardiology [address] [place] [address] [address] [place] [phone] Nabil Harding MD Medication Problem 04/17/2024 9:30 AM ALUMINUM SHINGLE ROOFER - 04/17/2024 11:30 AM ALUMINUM SHINGLE ROOFER Surgery [facility] Cardiac Catheterization Lab [address] [place] [address] Nabil Harding MD PCI SHAYY MAJOR CORONARY [id number] - [id number] 04/17/2024 6:10 AM ALUMINUM SHINGLE ROOFER - 04/17/2024 3:36 PM ALUMINUM SHINGLE ROOFER Hospital Encounter [facility] Cardiac Catheterization Lab [id number] [place] [address] Nabil Harding MD Coronary artery disease involving [place] coronary artery of [place] heart without angina pectoris Discharge Disposition: Discharge to home or self care 04/17/2024 Telephone [facility] Cardiology [address] [place] [address] [address] [place] [phone] Nabil Harding MD 04/13/2024 Telephone [facility] Cardiology [address] [place] [address] [address] [place] [phone] Nabil Harding MD 04/10/2024 Telephone [facility] Cardiology [address] [place] [address] [address] [place] [phone] Nabil Harding MD 04/05/2024 3:00 PM ALUMINUM SHINGLE ROOFER Ancillary Procedure [facility] [address] [place] [address] [address] [place] [phone] Chronic heart failure with preserved ejection fraction (CMS/HCC) ([facility]); S/P aortic valve replacement with bioprosthetic valve 03/27/2024 10:30 AM ALUMINUM SHINGLE ROOFER - 03/27/2024 12:00 PM ALUMINUM SHINGLE ROOFER Surgery [facility] Cardiac Catheterization Lab [id number] [place] [address] Nabil Harding MD RIGHT LEFT HEART CATHETERIZATION WITH CORONARY ANGIOGRAPHY GRAFT AND WITH OR WITHOUT LEFT VENTRICULOGRAPHY [id number] 03/27/2024 6:31 AM ALUMINUM SHINGLE ROOFER - 03/27/2024 3:17 PM ALUMINUM SHINGLE ROOFER Hospital Encounter [facility] Cardiac Catheterization Lab [id number] [place] [address] Nabil Harding MD Coronary artery disease involving [place] coronary artery of [place] heart without angina pectoris; Cardiovascular stress test abnormal Discharge Disposition: Discharge to home or self care 03/27/2024 Telephone [facility] Cardiology [address] [place] [address] Nabil Harding MD lab order from Last 3 Months Immunizations Immunization Administration Dates Next Due Influenza, Quad, Adjuvantate [...] eye blindness CHF (congestive heart failur e) ([facility]) ([facility]) Pneumonia 10/21/2021 hospitalized at [facility] with PNA, JUANITA and CHF Cancer ([facility]) ([facility]) h/o bladd er cancer, surgical intervention only CKD (chronic kidney disease) , stage III ([facility]) Numbness and tingling fingers an d hands, [...] on file Legal Sex Male 1:58 AM ALUMINUM SHINGLE ROOFER Gender Identity Not on file Sexual Orientation Not on file Obstetrics History Last Filed Vital Signs Vital Sign Reading Time Taken Comments Blood Pressure 136/62 06/08/2024 1:27 PM ALUMINUM SHINGLE ROOFER Pulse 79 06/08/2024 1:27 PM ALUMINUM SHINGLE ROOFER Temperature 36.7 C (98 F) 04/17/2024 7:04 AM ALUMINUM SHINGLE ROOFER Respiratory Rate 18 06/08/2024 1:27 PM ALUMINUM SHINGLE ROOFER Oxygen Saturation 95% 06/02/2024 1:00 PM ALUMINUM SHINGLE ROOFER Inhaled Oxygen Concentration - - Weight 127.3 kg (280 lb 8.6 oz) 06/08/2024 1:27 PM ALUMINUM SHINGLE ROOFER Height 172.7 cm (5' 8 ) 06/08/2024 1:27 PM ALUMINUM SHINGLE ROOFER Body Mass Index 42.66 06/08/2024 1:27 PM ALUMINUM SHINGLE ROOFER Plan of Treatment Health Maintenance Due Date Last Done Comments Depression Screening 1945 Dilated Eye Exam 1945 Foot Exam 1945 DTaP/Tdap/Td Vaccine (1 - Tdap) 11/26/1955 Hepatitis B Screening 1962 Abdominal Aortic Aneurysm (A AA) Screen 2009 Well Visit 65+ 2009 Pneumococcal vaccine 65+ (2 of 2 - PPSV23) 03/28/2017 01/31/2017 Covid-19 Vaccine (5 - 2023-2 [...] 05/18/2014 Colon Cancer Screening-DNA Stool Discontinued 05/18/19 Colon Cancer Screening-FIT Discontinued 05/18/2014 Colon Cancer Screening-FOBT Discontinued 05/18/2014 Colon Cancer Screening-Sigmoidoscopy Discontinued 05/18/2014 Colorectal Cancer Screening Discontinued Hepatitis C Screening Completed 06/14/2019 Zoster Vaccine Completed 05/07/2021, 02/18/2021 Goals Goal Patient Goal Type Associated Problems Recent Progress Patient-Stated? Author CCM Chronic Pain Care Plan Chronic Care Management No change(04/14 11:08 AM ALUMINUM SHINGLE ROOFER) No Pool Frey, KATHERINE Note: Problem: Chronic Pain Goals: 1. Minimize further functional decline 2. Maximize quality of life 3. Control pain Strategies: - Activity/exercise program recommendation - Conservative stepwise pain medicine strategy with multi-disciplinary approach - Recommend healthy lifestyle strategies and compensatory methods as needed Medical Devices Implanted Type Area Snack Foods Mixer Operator Device Identifier Shelf Expiration Date Model / Serial / Lot Total Knee Left: Knee Medtronic Inc Resolute Sherine 3mm 2.1-2.7fr 12mm 140cm Rapid Exchange Radiopaque [id number] - [id number] Implanted:Qty: 1 on 09/03/2021 by Bindu Goins MD at [facility] Medtronic Inc 06/11/2024 [id number] / / Medtronic Inc Resolute Temple 3.5mm 2.1-2.7fr 15mm 140cm Rapid Exchange [id number] - [id number] Implanted:Qty: 1 on 09/03/2021 by Bindu Goins MD at [facility] Medtronic Inc 04/04/2024 [id number] / / Angio-Seal Vip 6fr Closere Device [id number] - [id number] Implanted:Qty: 1 on 09/03/2021 by Bindu Goins MD at [facility] 06/02/2022 [id number] / / S[employer] Inc Enroute Uber Flex 8mm .065in 40mm 57cm Delivery System Angle Tip [id number]-[id number] - [id number] Implanted:Qty: 1 on 01/29/2022 by Neeraj La MD at [facility] Right: Carotid [employer] Inc 08/30/2024 [id number]-0840- CS / / [id number] Matilde [employer]omet Inc 4.5mm 16mm Fix Screw Bone [id number] - [id number] Implanted:Qty: 3 on 06/30/2022 by Fredy Nguyen MD at [facility] N/A: Spine Cervical MATILDE BIOMET SP[employer] INC [id number] 6 / / Musculoskeletal Transplant 12.1z88v6vp Frozen Spine 7d Lordotic Trapezoid Spacer Allograft 830010 - [id number] - [id number] Implanted:Qty: 1 on 06/30/2022 by Fredy Nguyen MD at [facility] N/A: Spine Cervical Musculoskeletal Transplant [id number] 03/25/2025 [id number] / [id number] / Musculoskeletal Transplant 12.1p53c9lq Frozen Spine 7d Lordotic Trapezoid Spacer Allograft 362074 - [id number] - [id number] Implanted:Qty: 1 on 06/30/2022 by Fredy Nguyen MD at [facility] N/A: Spine Cervical Musculoskeletal Transplant [id number] 01/03/2025 [id number] / [id number] / Musculoskeletal Transplant [id number] Frozen Spine 7d Lordotic Trapezoid Spacer Allograft 629384 - [id number] - [id number] Implanted:Qty: 1 on 06/30/2022 by Fredy Nguyen MD at [facility] N/A: Spine Cervical Musculoskeletal Transplant [id number] 04/26/2026 [id number] / [id number] / Matilde [employer] Inc C-Ervin Maxan 51mm Level 3 Fix Spine Cervical Anterior Plate Bone [id number] - [id number] Implanted:Qty: 1 on 06/30/2022 by Fredy Nguyen MD at [facility] N/A: Spine Cervical MATILDE [employer] SP[employer] INC 14-40324 1 / / Matilde [employer] Inc 4mm 16mm Fix Screw Bone 14-122990 - [id number] Implanted:Qty: 5 on 06/30/2022 by Fredy Nguyen MD at [facility] N/A: Spine Cervical MATILDE [employer] SP[employer] [id number] / / Access Closure Inc Device 10ml 5fr Closure Mynx Control 2 Mode Balloon Catheter [id number] - [id number] Implanted:Qty: 1 on 03/27/2024 by Nabil Harding MD at [facility] Access Closure Inc 01/18/2026 [id number] / / [id number] Medtronic Card Vasc Surgery 4.0 X 18mm Temple Denver Rx Coronary Stent [id number] - [id number] Implanted:Qty: 1 on 04/17/2024 by Nabil Harding MD at [facility] Medtronic Card Vasc Surgery 12/26/2026 [id number] / / [id number] Access Closure Inc Mynx Control 6-7fr 2 Mode Balloon Catheter Sealant Lock Syringe [id number] - [id number] Implanted:Qty: 1 on 04/17/2024 by Nabil Harding MD at [facility] Access [employer] Inc 01/05/2026 [id number] / / [id number] Procedures Procedure Name Priority Date/Time Associated Diagnosis Comments POCT GLUCOSE Routine 06/08/2024 1:18 PM ALUMINUM SHINGLE ROOFER Type 2 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 disease, with long-term current use of insulin (HCC) POCT HEMOGLOBIN A1C Routine 06/08/2024 1 :18 PM ALUMINUM SHINGLE ROOFER Type 2 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 disease, with long-term current use of insulin (HCC) ALBUMIN CREATININE RATIO, URINE Routine 06/08/2024 1:18 PM ALUMINUM SHINGLE ROOFER Type 2 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 disease, with long-term current use of insulin ([facility]) POCT LIPID PANEL Routine 06/08/2024 1:18 AM ALUMINUM SHINGLE ROOFER Type 2 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 disease, with long-term current use of insulin ([facility]) HM CREATININE Routine 05/31/2024 12:52 PM ALUMINUM SHINGLE ROOFER COMPREHENSIVE METABOLIC PANEL Routine 05/31/2024 POCT GLUCOSE DEVICE Routine 04/17/2024 1 0:45 AM ALUMINUM SHINGLE ROOFER PCI SHAYY STENT ADDTN'L COR BRANCH (+) [id number] Routine 04/17/2024 10:23 AM ALUMINUM SHINGLE ROOFER Coronary artery disease involving [place] coronary artery of [place] heart without angina pectoris PERCUTANEOUS CORONARY LITHROTRIPSY W/ PCI (+) [id number] Routine 04/17/2024 10:23 AM ALUMINUM SHINGLE ROOFER Coronary artery disease involving [place] coronary artery of [place] heart without angina pectoris CORONARY OCT, 1ST VESSEL Routine 04/17/2024 10:23 AM ALUMINUM SHINGLE ROOFER Coronary artery disease involving [place] coronary artery of [place] heart without angina pectoris VASCULAR ACCESS US GUIDANCE Routine 04/17/2024 10:23 AM ALUMINUM SHINGLE ROOFER Coronary artery disease involving [place] coronary artery of [place] heart without angina pectoris SHAYY MAJOR CORONARY Routine 04/17/2024 10 :23 AM ALUMINUM SHINGLE ROOFER Coronary artery disease involving [place] coronary artery of [place] heart without angina pectoris MODERATE SEDATION FIRST 15MIN 5+ YEAR [address]243 04/17/2024 9:00 AM ALUMINUM SHINGLE ROOFER Coronary artery disease involving [place] coronary artery of [place] heart without angina pectoris POCT GLUCOSE DEVICE Routine 04/17/2024 8 :27 AM ALUMINUM SHINGLE ROOFER TRANSTHORACIC ECHO (TTE) COMPLETE W DOPPLER/CF WO CONTRAST Routine 04/05/2024 4:20 PM ALUMINUM SHINGLE ROOFER Chronic heart failure with preserved ejection fraction (CMS/HCC) ([facility]) S/P aortic valve replacement with bioprosthetic valve POCT GLUCOSE DEVICE Routine 03/27/2024 1 2:08 PM ALUMINUM SHINGLE ROOFER CORONARY FLOW VELOCITY (CFR) / INSTATANEOUS FLOW VELOCITY (IFR), 1ST VESSEL Routine 03/27/2024 11:45 AM ALUMINUM SHINGLE ROOFER Coronary artery disease involving [place] coronary artery of [place] heart without angina pectoris Cardiovascular stress test abnormal RIGHT LEFT HEART CATHETERIZATION CORONARY GRAFT WITH WITHOUT LEFT VENTRICULOGRAPHY ANGIOGRAM Routine 03/27/2024 11:45 AM ALUMINUM SHINGLE ROOFER Coronary artery disease involving [place] coronary artery of [place] heart without angina pectoris Cardiovascular stress test abnormal VASCULAR ACCESS US GUIDANCE Routine 03/27/2024 11:45 AM ALUMINUM SHINGLE ROOFER Coronary artery disease involving [place] coronary artery of [place] heart without angina pectoris Cardiovascular stress test abnormal MODERATE SEDATION FIRST 15MIN 5+ YEAR [address]339 03/27/2024 10:46 AM ALUMINUM SHINGLE ROOFER Coronary artery disease involving [place] coronary artery of [place] heart without angina pectoris Cardiovascular stress test abnormal POCT GLUCOSE DEVICE Routine 03/27/2024 7 :13 AM ALUMINUM SHINGLE ROOFER HEPATITIS C AB REFLEX RNA QUANT PCR Routine 06/14/2019 3:47 PM ALUMINUM SHINGLE ROOFER COLONOSCOPY REPORT 05/18/2014 from Last 3 Months or Most Recently Relevant to Health Maintenance Results * (ABNORMAL) POCT hemoglobin A1c (06/08/2024 1:18 PM ALUMINUM SHINGLE ROOFER) Hemoglobin A1C, POC 8.3 4.0 - 5.6 % Capillary blood 06/08/2024 1 :18 PM ALUMINUM SHINGLE ROOFER Terra CRUZ POINT OF CARE TEST ENRIQUE CHINO Final Result * (ABNORMAL) Albumin Creatinine Ratio, Urine (06/08/2024 1:18 PM ALUMINUM SHINGLE ROOFER) Albumin Ur 68.0 mg/L Comment: Interpretive Data No reference range established. Current interpretive data was last revised 2018. Creatinine Ur 32.5 mg/dL JOSE MIGUEL Comment: Interpretive Data No reference range established. Current interpretive data was last revised 2018. Albumin Creatinine Ratio, Ur 209(H) 1 - 29 mg/g JOSE MIGUEL BOWERS Urine 06/08/2024 1:18 PM ALUMINUM SHINGLE ROOFER 06/08/2024 7:31 PM ALUMINUM SHINGLE ROOFER Terra CRUZ LAB URINE ORDERABLES Fi nal Result JOSE MIGUEL [address] Department [place] [address] * (ABNORMAL) POCT glucose (06/08/2024 1:18 PM ALUMINUM SHINGLE ROOFER) Glucose Blood, POC 204 mg/dL Comment:PPG 2.5 Hrs Blood 06/08/2024 1:18 PM ALUMINUM SHINGLE ROOFER Terra CRUZ POINT OF CARE TEST ORDE RABLES Final Result * (ABNORMAL) POCT lipid panel (06/08/2024 1:18 AM ALUMINUM SHINGLE ROOFER) Cholesterol, POC 154 mg/dL HDL, POC 25 mg/dL Triglycerides, POC 271 mg/dL LDL Cholesterol POC 75 mg/dL Chol/HDL Ratio, POC 6.2 Non-HDL Cholesterol, POC 129 mg/dL Cholesterol Total, POC 154 mg/dL Capillary blood 06/08/2024 1 :18 AM ALUMINUM SHINGLE ROOFER Terra CRUZ POINT OF CARE TEST ORDE RABLES Final Result * (ABNORMAL) HM CREATININE (05/31/2024 12:52 PM ALUMINUM SHINGLE ROOFER) SCRIBED Creatinine 2.16(A) 0.7 - 1.3 mg/dl EXTERNAL LAB SCRIBED eGFR in NonAfrican Ukrainian 30 >59 - NA EXTERNAL LAB Blood 05/31/2024 12:5 2 PM ALUMINUM SHINGLE ROOFER Historical Provider HEALTH MAINTENANCE Edited Result - Final EXTERNAL LAB * Comprehensive metabolic panel (05/31/2024) Blood Impressions EXTERNAL LAB - 05/31/2024 Lab ordered in error Historical Provider LAB BLOOD ORDERABLES Edit ed Result - Final Performing Organization Address City/[facility]/ZIP Co de Phone Number EXTERNAL LAB * POCT glucose (04/17/2024 10:45 AM ALUMINUM SHINGLE ROOFER) Glucose, POC 133 70 - 199 mg/dL Blood 04/17/2024 10:4 5 AM ALUMINUM SHINGLE ROOFER 04/17/2024 10:45 AM ALUMINUM SHINGLE ROOFER Nabil Harding MD LAB POCT ORDERABLES - DEVICE Fin al Result Performing Organization Address [facility] Co de Phone Number JOSE MIGUEL [address] [address] Department [place] [address] * SHAYY MAJOR CORONARY, VASCULAR ACCESS US GUIDANCE, CORONARY OCT, 1ST VESSEL, PERCUTANEOUS CORONARY LITHROTRIPSY W/ PCI (+) [id number], PCI SHAYY STENT ADDTN'L COR BRANCH (+) [id number] (04/17/2024 10:23 AM ALUMINUM SHINGLE ROOFER) Anatomical Region Laterality Modality X-Ray Angiograph y Addenda Addendum by Nabil Harding MD on 04/17/2024 10:55 AM ALUMINUM SHINGLE ROOFER CARDIAC CATHETERIZATION AND INTERVENTION REPORT DATE OF [...] from 02/15/2024 reportedly showed LVEF 33%; small, eaea-im-evkylvcq reversible defect in apical anterior and apical [...] groin hematoma, retroperitoneal bleed, vessel perforation; periprocedural PR, cardiac arrhythmias, stroke, contrast induced nephropathy, and [...] a 4.0 x 18 mm Medtronic sherine Denver zotarolimus eluting stent with good angiographic and IVUS results (proximal optimization into left main) Moderate sedation-CPT code 40470 and beyond Deployment of Mynx vascular closure device MODERATE SEDATION: Midazolam 1 mg , Fentanyl 25 mcg, start time 0927 stop time 1023, total direct nfeu-kk-kidm monitoring of conscious sedation 56 minutes (CPT 00894) TRAINED OBSERVER: Abisai Woods RN was trained observer for moderate sedation. ACCESS SITE: Right common femoral artery PROCEDURE: After obtaining informed consent, patient was brought to the labeling strategist and prepped and draped in the usual sterile manner. Time-out and immediate reassessment of the patient was performed. After local anesthesia with lidocaine, right common femoral artery access was taken with micropuncture needle under ultrasound guidance followed by insertion of a 6 Romansh sheath. Selective left coronary angiogram was performed using 6 Romansh JL4 guide catheter. Estimated blood loss was [...] artery ostium was selectively engaged using 6 Romansh JL4 guide catheter. Bivalirudin was used for procedural anticoagulation. Patient has been on dual antiplatelet therapy, today's dose of clopidogrel was given in the labeling strategist. 0.014 luge wire was advanced and the stenosis at the ostium of the LAD was crossed. The guidewire was advanced in the distal LAD. IVUS was performed using a CNS Response miami eye IVUS catheter. The reference diameter was [...] Next 4.0 x 18 mm Medtronic sherine Denver ZES was advanced to the target lesion [...] a 4.0 x 18 mm Medtronic sherine [place] ZES will good IVUS and angiographic results. PLAN/RECOMMENDATIONS: Continue dual antiplatelet therapy, statin; and guideline directed medical treatment for CHFrEF. Outpatient Cardiology follow-up. Voice recognition software was used to complete this document, therefore, lease picker variances may occur. Nabil Harding MD, [facility] 04/17/24 us Nabil Harding MD CV CARDIAC CATH PROCEDURES Edite d Result - Final * POCT glucose (04/17/2024 8:27 AM ALUMINUM SHINGLE ROOFER) [facility] Glucose, POC 166 70 - 199 mg/dL Blood 04/17/2024 8:27 AM ALUMINUM SHINGLE ROOFER 04/17/2024 8:27 AM ALUMINUM SHINGLE ROOFER us Nabil Harding MD LAB POCT ORDERABLES - DEVICE Elmer rausch Result JOSE MIGUEL BOWERS [address] Department [place] [address] * TRANSTHORACIC ECHO (TTE) COMPLETE W DOPPLER/CF WO CONTRAST (04/05/2024 4:20 PM ALUMINUM SHINGLE ROOFER) Anatomical Region Laterality Modality Ultrasound 04/05/2024 3:53 PM ALUMINUM SHINGLE ROOFER Narrative 04/06/2024 7:04 AM ALUMINUM SHINGLE ROOFER [facility] Cardiology [address], [place] [address] [facility] [address], [place] [address] P:[phone] P:[phone] Echocardiographic Report Patient Name: TAMIKA AGUILAR D : 1945 Study Date: 04/05/2024 3:53:42 PM Gender: M Tech: MOISÉS Location: [facility] Provider: NABIL HARDING Height(Cm): 160 BSA: [...] FINDINGS: Interpretation Site: Exam was interpreted at [facility]. Left Ventricle: Severe enlargement of left ventricle [...] Signed By: Jose Antonio Walls MD, [facility] 04/06/2024 7:04:01 AM ALUMINUM SHINGLE ROOFER Procedure Note Jose Antonio Walls MD - 04/06/2024 [facility] Cardiology [address] [facility] [address] [address] [facility] [address], [place] [address] P:[phone] P:[phone] Echocardiographic Report Patient Name: TAMIKA AGUILAR D : 1945 Study Date: 04/05/2024 3:53:42 PM Gender: M Tech: Location: [facility] Provider: NABIL HARDING Height(Cm): 160 BSA: [...] FINDINGS: Interpretation Site: Exam was interpreted at [facility]. Left Ventricle: Severe enlargement of left ventricle [...] Signed By: Jose Antonio Walls MD, [facility] 04/06/2024 7:04:01 AM ALUMINUM SHINGLE ROOFER us Nabil Harding MD CV ECHO PROCEDURES Final Result * POCT glucose (03/27/2024 12:08 PM ALUMINUM SHINGLE ROOFER) Glucose, POC 157 70 - 199 mg/dL Blood 03/27/2024 12:0 8 PM ALUMINUM SHINGLE ROOFER 03/27/2024 12:08 PM ALUMINUM SHINGLE ROOFER us Nabil Harding MD LAB POCT ORDERABLES - DEVICE Fin al Result [facility] [address] [facility] Department [place] [address] * VASCULAR ACCESS US GUIDANCE, RIGHT LEFT HEART CATHETERIZATION CORONARY GRAFT WITH WITHOUT LEFT VENTRICULOGRAPHY ANGIOGRAM, CORONARY FLOW VELOCITY (CFR) / INSTATANEOUS FLOW VELOCITY (IFR), 1ST VESSEL (03/27/2024 11:45 AM ALUMINUM SHINGLE ROOFER) Anatomical Region Laterality Modality X-Ray Angiograph y Addenda Addendum by Nabil Harding MD on 03/27/2024 12:11 PM ALUMINUM SHINGLE ROOFER CARDIAC CATHETERIZATION AND INTERVENTION REPORT DATE OF [...] from 02/15/2024 reportedly showed LVEF 33%; small, wxbv-ly-fqdjxwhd reversible defect in apical anterior and apical [...] groin hematoma, retroperitoneal bleed, vessel perforation; periprocedural PR, cardiac arrhythmias, stroke, contrast induced nephropathy (elevated risk due to underlying CKD), and . After discussing all the benefits, risks and alternatives, patient was willing to proceed with the procedure. PROCEDURES PERFORMED: Ultrasound-guided right common femoral arterial access Selective left and right coronary angiogram Selective bypass graft Angiography Percutaneous coronary intervention-IFR of ostial left anterior descending artery Moderate sedation-CPT code 13112 and beyond Deployment of Mynx vascular closure device MODERATE SEDATION: Midazolam 1 mg , Fentanyl 25 mcg, start time 1059 stop time 1145, total direct vpwv-pq-tbrm monitoring of conscious sedation 46 minutes (CPT 95180) TRAINED OBSERVER: Bernadette Putnam RN was trained observer for moderate sedation. ACCESS SITE: Right common femoral artery PROCEDURE: After obtaining informed consent, patient was brought to the labeling strategist and prepped and draped in the usual sterile manner. Time-out and immediate reassessment of the patient was performed. After local anesthesia with lidocaine, right common femoral artery access was taken with micropuncture needle under ultrasound guidance followed by insertion of a 5 Romansh sheath. Selective left and right coronary angiography was performed using 5 Romansh JL4 and 5F JR4 catheters respectively. Orthogonal views were taken. JR4 diagnostic catheter was used for selective bypass graft Angiography of aortic coronary bypass grafts. Bioprosthetic Aortic valve was not crossed. Estimated blood loss was minimal. All specimens removed. The angiographic and other findings, and details of intervention are given below. FINDINGS: [place] CORONARY ARTERIES: LEFT MAIN CORONARY: Large caliber, [...] caliber graft, no significant focal stenosis. The [place] vessel after anastomosis is a medium caliber vessel without significant focal stenosis. SVG TO RPDA: Large caliber graft, yxcr-vs-snrodfbw, 30-50% diffuse plaque is seen in the [...] guidewire was zeroed outside the body. Five Romansh JL4 guide catheter was advanced into the [...] was used to complete this document, therefore, lease picker variances may occur. Nabil Harding MD, [facility] 03/27/24 Naibl Harding MD CV CARDIAC CATH PROCEDURES Edite d Result - Final * POCT glucose (03/27/2024 7:13 AM ALUMINUM SHINGLE ROOFER) Pathologist [facility] Glucose, POC 172 70 - 199 mg/dL Blood 03/27/2024 7:13 AM ALUMINUM SHINGLE ROOFER 03/27/2024 7:13 AM ALUMINUM SHINGLE ROOFER Nabil Harding MD LAB POCT ORDERABLES - DEVICE Fin al Result Performing Organization Address City/[facility]/ZIP Co de Phone Number JESUSJOSE [address] [address] [place] [address] * Hepatitis C Antibody Reflex Hepatitis C RNA Quantitative PCR Blood (06/14/2019 3:47 PM ALUMINUM SHINGLE ROOFER) [facility] Hep C Ab Negative Negative [facility] Blood specimen (specimen) 06/14/2019 3:47 PM ALUMINUM SHINGLE ROOFER 06/14/2019 8:03 PM ALUMINUM SHINGLE ROOFER Notinfile Unknown LAB MICROBIOLOGY - GENERAL ORD ERABLES Final Result Performing Organization Address City/[facility]/ZIP Co de Phone Number [facility] [address] [address] Francisco [place] [address] * COLONOSCOPY REPORT (05/18/2014) Anatomical Region Laterality Modality Other Narrative 05/18/2014 Ordered by an unspecified provider. Historical Provider GI PROCEDURE ORDERABLES F inal Result from Last 3 Months or Most Recently Relevant to Health Maintenance Insurance [employer] CHO[employer] MEDICARE PPO Advance Directives For more information, please contact: [phone] * Full Code (Latest Code Status on File) Date Activated Date Inactivated Comments 06/30/2022 6:44 PM 07/03/2022 5:32 PM * Full Code Date Activated Date Inactivated Comments 06/30/2022 6:39 PM 06/30/2022 6:44 PM * Full Code Date Activated Date Inactivated Comments 01/29/2022 2:14 PM 01/30/2022 6:06 PM * Full Code Date Activated Date Inactivated Comments 09/03/2021 12:10 PM 09/04/2021 7:37 PM Care Teams Engine Turner Relationship Specialty Start Date End Date Rafa Chavez DO [facility] [address] [place] [address] PCP - General Internal Medicine 06/01/24 Yfn Gill MD Referring Physician Nephrology 01/22/22 Aguila Chris MD Consulting Physician Cardiology 01/22/22 [place] [address] [address] [address] Consulting Physician Endocrinology Diabetes & Metabolism 01/22/22 Neeraj La MD [facility] [facility] [address] [address] Surgeon Vascular Surgery 01/30/22
--- OUTSIDE RECORDS SUMMARY | 2024-06-22 13:51 | XMS_ITS | Encounter Summary ---
Author Organization [facility] Address [address] [place] [address] Phone Care Team Providers Care Die Welder Name Role Phone Arnel Gonzalez MD Primary Care Provider [phone] Yfn Gill MD Unavailable [phone] Aguila Chris MD Unavailable [phone] Malcolm Castro MD Unavailable [phone] Neeraj La MD Unavailable [phone] Armand Howard RN Unavailable Unavaila August Hsu Primary Care Provider Miguel Torres DO Primary Care Provider [phone] Rafa Chavez DO Primary Care Provider [phone] Encounter Details Date Type Department Care Team [...] on file Legal Sex Male 1:58 AM ORCHESTRA DIRECTOR Gender Identity Not on file Sexual Orientation [...] COVID: Suspected 05/05/2022 05/05/2022 05/05/2022 12:26 PM ORCHESTRA DIRECTOR COVID: Suspected 05/05/2022 05/05/2022 05/05/2022 8:19 PM ORCHESTRA DIRECTOR COVID: Suspected 03/19/2024 03/19/2024 03/19/2024 3:22 AM ORCHESTRA DIRECTOR documented as of this encounter Care Teams Die Welder Relationship Specialty Start Date End Date Arnel Gonzalez MD [address] [place] [address] PCP - General 07/19/13 07/05/23 August Triana PA [address] [place] [address] [address] [place] [address] PCP - General Physician Brushing Operator 07/06/23 01/16/24 Miguel Torres DO [address] [place] [address] [place] [address] PCP - General Internal Medicine 01/17/24 05/31/24 Rafa Chavez DO [address] [place] [address] [address] PCP - General Internal Medicine 06/01/24 Yfn Gill MD [address] [facility] [address] [place] [address] Referring Physician Nephrology 01/22/22 Aguila Chris MD [address] [facility] [address] [place] [address] Consulting Physician Cardiology 01/22/22 [place] [address] [address] Consulting Physician Endocrinology Diabetes & Metabolism 01/22/22 Neeraj La MD [address] [facility] [address] [place] [address] Surgeon Vascular Surgery 01/30/22 Armand Howard, RN Registered Nurse 06/30/22 07/02/22 documented as of this encounter
--- OUTSIDE RECORDS SUMMARY | 2024-06-22 13:51 | XMS_ITS | Clinical Summary ---
Author Organization [facility] Address [address] [place] [address] Phone Care Team Providers Care Aircraft Sales Representative Name Role Phone Arnel Gonzalez DO Primary Care Provider [phone] Allergies Active Allergy Reactions Criticality Noted Date [...] 300 MG tablet 04/14/2020 Active Droplet Pen [place] 31G X 5 MM misc 07/28/2020 Active [...] 12/22/2021 Active ergocalciferol (VITAMIN D2) 1.25 MG (39514 UT) capsule TAKE ONE CAPSULE BY MOUTH [...] diabetes mellitus with complication Coronary arteriosclerosis in [place] artery 01/29 Overview (03/06/2019): CAD (coronary artery disease) Coronary artery disease involving [place] coronary artery of [place] heart without angina pectoris Coronary atherosclerosis 01/29/2015 Overview (08/30/2020): CAD (coronary artery disease) Coronary artery disease involving [place] coronary artery of [place] heart without angina pectoris H/O: artificial heart [...] PCV20) 01/31/2018 01/31/2017 COVID-19 Vaccine (2 - 2023-2 5 season) 2024 03/11/2021 Influenza Vaccine (#1) 2024 , 03/03/2020, 02/01/2020, Additional history exists Care Teams Aircraft Sales Representative Relationship Specialty Start Date End Date Arnel Gonzalez DO [address] [facility] [address] [place] [id number] PCP - General Internal Medicine 01/31/19
--- OUTSIDE RECORDS SUMMARY | 2024-06-22 13:51 | XMS_ITS | Clinical Summary ---
Author Organization [facility] Address [address] [place] [address] Care Team Providers Care Brand Coordinator Name Role Phone Arnel Gonzalez Primary Care Provider [phone] Source Comments [facility],non-christian hospital Affiliates and Associated Physician Practices is amultiple site organization consisting of ambulatory clinics and hospital sitesin [place], [place], [place] and [place]. This disclosure is being madepursuant to the Care Everywhere program and may not contain all information available regarding this patient. Last updated 18.[facility] Allergies Active Allergy Reactions Criticality Noted Date [...] Comments Blood Pressure 136/70 05/05/2021 1:09 PM COMMUNICATIONS PLANNER Pulse 76 05/05/2021 1:09 PM COMMUNICATIONS PLANNER Temperature - - Respiratory Rate 14 05/05/2021 1:09 PM COMMUNICATIONS PLANNER Oxygen Saturation 98% 05/05/2021 1:09 PM COMMUNICATIONS PLANNER Inhaled Oxygen Concentration - - Weight 121.1 kg (267 lb) 05/05/2021 1:09 PM COMMUNICATIONS PLANNER Height 172.7 cm (5' 8 ) 05/05/2021 1:09 PM COMMUNICATIONS PLANNER Body Mass Index 40.6 05/05/2021 1:09 PM COMMUNICATIONS PLANNER Plan of Treatment Health Maintenance Due Date [...] age to complete this topic Care Teams Brand Coordinator Relationship Specialty Start Date End Date Arnel Gonzalez DO [address] [facility] [address] [place], [place] [id number] PCP - General 01/03/21
--- OUTSIDE RECORDS SUMMARY | 2024-06-22 13:51 | XMS_ITS | Data Portability ---
Author Organization [place] - [email or web address], Main Office Address [address] [place] [address] Care Team Providers Care Feedlot Manager Name Role Phone BENITARENAE JOCELYNE Primary Care Provider [phone] JOCELYNE DAUGHERTY Referring Provider Assessment Encounter Date Assessment Date Assessment LastModified by Organization Details LastModified Time 01/27/2024 01/27/2024 This note is dictated and transcribed by [employer]. Containers Sales Representative variances may occur. Despite proofreading, typographical errors may occur. Occasional wrong-word or 'msdgm-e-unco' substitutions may have occurred due to the inherent limitations of voice recording. Read the chart carefully and recognize, using context, where substitutions have occurred. Not available 01/27/2024 14:32:20 05/11/2024 05/11/2024 This note is dictated and transcribed by [employer]. Containers Sales Representative variances may occur. Despite proofreading, typographical errors may occur. Occasional wrong-word or 'ihqxf-u-stnd' substitutions may have occurred due to the [...] ammonium lactate 12 % lotion 2022 023 [facility]/Pharmacy #[id number], [address], [place], [address], 03/30/2023 15:16:36 Patient TargetsNo targets recorded. Patient Instructions Encounter Date Encounter Id Patient Instructions Last Modified By Organization Details Last Modified Time 05/11/2024 [id number] diabetic foot care education Not available 05/11/2024 16:21:28 Reason for Referral None Reported. Problems Name Problem SNOMED Code Status Onset Date Resolution Date Notes Provider Name and Address Organization Details Recorded Time Arthritis 3702110 Active 2022 Yovana crooks [facility] 3 14:52:19 Diabetes mellitus 64503383 Active 2022 Yovana Arvizu null, [facility] 3 14:52:25 Ear problem 778614559 Active 2022 Yovana Arvizu null, [facility] 3 14:52:32 Disorder of eye 056432059 Active 2022 Yovana Arvizu null, [facility] 3 14:52:40 Heart disease 01386703 Active 2022 Yovana Arvizu null, [facility] 3 14:52:46 Hyperchole sterolemia 75608287 Active 2022 Yovana Arvizu null, [facility] 3 14:52:56 Kidney disease 45621091 Active 2022 Yovana Arvizu null, [facility] 3 14:53:05 Obesity 866423730 Active 2022 Yovana crooks, [facility] 3 14:53:12 Sleep disorder 92530512 Active 2022 Yovana Arvizu null, [facility] 3 14:53:29 Dystrophia unguium 49999367 Active 2022 Merrick Cardoso, TANYA [address] [facility], [address] [address], [place], [address] , [facility] 3 15:14:00 Acquired hallux limitus of right great toe 7871508996057 100 Active 2022 Merrick Cardoso DPM [address], [address], [place], [address] , [facility] 3 15:14:44 Foot callus 165534091 Active 2022 Merrick Cardoso DPM [address], [address], [place], [address] , [facility] 3 15:15:32 Fissure in skin 48568355 Active 2022 Merrick Cardoso DPM [address], [address], [place], [address] , [facility] 3 15:15:39 Edema of lower extremity 512957587 Active 2024 Merrick Cardoso DPM [address], [address], [place], [address] , [facility] 5 16:21:15 Notes:back/neck problem, pro state, urinary/bladder/kidney problems, use of blood thinners Problem Notes None recorded. Procedures Surgical History Date Name Laterality Status Provider Name and Address Organization Details Recorded Time 01/27/20 24 Nail Debridement completed Merrick Cardoso DPM [address], [address], [place], [address], [facility] 01/27/2024 14:31:56 01/12/20 23 Nail Debridement completed Merrick Cardoso DPM [address], [place], [address], [facility] 01/11/2023 15:13:45 Knee Surgery completed Not Available [facility] 07/01/2022 13:12:58 procedure on heart completed Not Available [facility] 07/[facility] 13:12:58 procedure on urinary bladder completed Not Available [facility] 07/01/2022 13:12:58 Imaging Results None recorded. Procedure Notes None recorded. Medical Equipment None Reported. Allergies Allergen ID Allergen Name Allergen Category Reaction Reaction Severity Criticality Documentation Date Start Date Code Code System Note Provider Name and Address Organization Details Recorded Time 61414 codeine medicatio n itching Not available Not available 07/01/2022 2670 RxNorm Not Available [facility] 13:15:32 Medications Name Sig Start Date Stop [...] Updated DateTime 01/11/2023 172.72 cm 39.5 kg/m2 743475.02 g Yovana Nolberto [facility] [employer] [facility] 01/11/2023 14:52:01 Date Recorded Heart rate Respiratory rate Body temperature Oxygen saturation Oxygen saturation in Arterial blood by Pulse oximetry Systolic blood pressure Diastolic blood pressure Provider Name and Address Organization Details Last Updated DateTime 3 76 /min 16 /min 97.4 [degF] 98 % 98 % 130 mm[Hg] 82 mm[Hg] Deanna Navarrete [facility] [employer] [facility] 3 14:54:08 Date Recorded Body height Body mass index (BMI) Body weight Heart rate Respiratory rate Oxygen saturation Oxygen saturation in Arterial blood by Pulse oximetry Systolic blood pressure Diastolic blood pressure Provider Name and Address Organization Details Last Updated DateTime 3 172.72 cm 39.5 kg/m2 947995. 02 g 99 /min 14 /min 97 % 97 % 143 mm[Hg] 73 mm[Hg] Marta Najera [facility] [employer] [facility] 3 14:38:18 Date Recorded Body height Body mass index (BMI) Body weight Heart rate Respiratory rate Oxygen saturation Oxygen saturation in Arterial blood by Pulse oximetry Systolic blood pressure Diastolic blood pressure Provider Name and Address Organization Details Last Updated DateTime 4 172.72 cm 39.5 kg/m2 458331. 02 g 96 /min 14 /min 98 % 98 % 163 mm[Hg] 77 mm[Hg] Marta Najera [facility] [employer] [facility] 4 16:40:20 Date Recorded Body height Body mass index (BMI) Body weight Heart rate Respiratory rate Oxygen saturation Oxygen saturation in Arterial blood by Pulse oximetry Systolic blood pressure Diastolic blood pressure Provider Name and Address Organization Details Last Updated DateTime 4 172.72 cm 39.5 kg/m2 647776. 02 g 85 /min 14 /min 98 % 98 % 137 mm[Hg] 75 mm[Hg] Marta Najera [place] [facility] 4 14:11:03 Date Recorded Body height Body mass index (BMI) Body weight Heart rate Respiratory rate Oxygen saturation Oxygen saturation in Arterial blood by Pulse oximetry Systolic blood pressure Diastolic blood pressure Provider Name and Address Organization Details Last Updated DateTime 5 172.72 cm 39.5 kg/m2 903792. 02 g 102 /min 16 /min 97 % 97 % 126 mm[Hg] 66 mm[Hg] Marta Najera [facility] 5 15:19:04 Social History Question Answer Notes LastModified by Organizat ion Details LastModified Time Tobacco Smoking Status Former Smoker Yovana Nolberto crooks, [facility] 01/11/2023 14:55:43 What Is Your Level Of Alcohol Consumption? None [email or web address] Information not available 01/11/2023 Sex: Unknown Functional Status None recorded. Mental Status None recorded. Family History Relationship Description Onset Age of this Age Resolved Age Notes LastModified by Organization Details LastModified Time Unspecified Relation Hypertensive disorder [id number] Not available 07/01/2022 13:12:59 Unspecified Relation Diabetes mellitus [id number].688 [id number] Not available 07/01/2022 13:12:59 Unspecified Relation Kidney disease [id number].466 [id number] Not available 07/01/2022 13:12:59 Unspecified Relation Arthritis [...] HAVE YOU BEEN HOSPITALIZED OR SEEN IN [facility] ER IN THE PAST YEAR ? N [...] SNOMED-CT Code Diagnosis ICD10 Code Diagnosis Note [id number] [facility] [place] [address] [place] [address] 02/13/2021 00:00:00 02/13/2021 11:18:11 [id number] Merrick Cardoso DPM [facility] [place] [address] [place] [address] 01/11/2023 14:37:23 01/20/2023 11:58:11 Diabetes mellitus 79982253 E11.40 Patient educated on neuropathy , diabetes, diabetic diet, and daily foot exams. Patient is to check feet daily for new wounds, blisters, redness to prevent infection and ulceration s to the feet. Patient will return to clinic in 3 months for diabetic foot workup. Dystrophia unguium 12271 009 L60.3 left great toenailDeb rided without incident follow-up as needed Acquired h allux limitus of right great toe 9603082182 627532 M20.5X1 educated on conditionC ontinue supportive shoe gearRange of motion exercises dailyRice therapyFol low-up as needed [id number] Merrick Cardoso DPM [facility] [place] [address] [facility], [address] [place] [address] 03/30/2023 14:22:28 04/02/2023 09:27:28 Foot callus 829306359 L84 right footuse rory pena dailyfollo w up as needed Fissure in skin 63340155 R23.4 keep area cleancont DM insolesmay require more support to prevent sheering in shoes [id number] Merrick Cardoso DPM [facility] [place] [address], [address] [place] [address] 07/06/2023 16:36:52 07/07/2023 13:50:23 Foot callus 485797899 L84 resolvedus e rory pena dailyno further paincont supportive shoefollow up as needed [id number] Merrick Cardoso DPM [facility] [place] [address] [place] [address] 01/27/2024 13:57:23 01/27/2024 14:38:22 Diabetes mellitus 29955916 E11.40 continue diabetic control per PCP recommenda tion Acquired h allux limitus of right great toe 1936675379 016195 M20.5X1 educated on conditionC ontinue supportive shoe gearRange of motion exercises dailyRice therapywil l monitor Dystrophia unguium 96144 009 L60.3 left great toenailtoe nails debrided without incident [id number] Merrick Cardoso DPM [facility] [place] [address] [place] [address] 05/11/2024 15:12:23 05/16/2024 15:30:57 Diabetes mellitus 21515792 E11.40 continue diabetic control per PCP recommenda tionrecomm end supportive shoe gearCheck foot daily for wounds infectionF ollow-up in 3 months for diabetic foot care Edema of l ower extremity 255615117 R60.0 recommend chronic compressio n stockings bilateral [...] REPLACEMENT/A DVANTAGE - PPO) Sabino Wells Cicio [id number] Gabriel Wells Cicio 03/30/2023 1 [employer] (MEDICARE REPLACEMENT/A DVANTAGE - PPO) Sabino Wells Cicio [id number] Gabriel Wells Cicio 07/06/2023 1 [employer] (MEDICARE REPLACEMENT/A DVANTAGE - PPO) Sabino Celeste [id number] Gabriel Wells Cicio 01/27/2024 1 [employer] (MEDICARE REPLACEMENT/A DVANTAGE - PPO) Sabino Wells Cicio [id number] Gabriel Wells Cicio 05/11/2024 1 [employer] (MEDICARE REPLACEMENT/A DVANTAGE - PPO) Sabino Celeste [id number] Gabriel Celeste Notes Date Note Type Note [...] Cardoso DPM [address], [address], [place], [address], [facility] 01/19/2023 16:40:59 3 text/html Patient is a 77 yr old male who presents for callus to the plantar foot. Patient denies any wounds. Patient denies any other pedal complaints. Merrick Cardoso DPM [address], [address], [place], [address], [employer] 04/02/2023 09:14:24 4 text/html Patient follows up for callus, he states with proper shoe gear and use of pumas stone he no longer has pain or the callus. Denies any new complaints. Merrick Cardoso DPM [address], [address], [place], [address], [facility] 07/07/2023 10:04:27 text/html . Patient is a [...] Cardoso DPM [address], [address], [place], [address], [facility] 01/27/2024 14:33:25 text/html . Patient is a 78-year-old male diabetic who returns the office for routine diabetic foot care. Patient states overall he is doing well denies any wounds or infection of the feet. Patient does have swelling of his lower extremities that is [id number]-[id number] in nature he denies any calf pain or open wounds to the lower legs I did recommend compression stockings he is currently being evaluated for congestive heart failure. Patient denies any other complaints. Merrick Cardoso DPM [address], [address], [place], [address], [facility] 05/11/2024 16:21:52
--- OUTSIDE RECORDS SUMMARY | 2024-06-22 13:51 | XMS_ITS | Referral Summary ---
Author Organization [facility] Address [address] [place] [address] Care Team Providers Care Musical Instrument Maker Name Role Phone Yfn Gill MD Unavailable [phone] Aguila Chris MD Unavailable [phone] Malcolm Castro MD Unavailable [phone] Neeraj La MD Unavailable [phone] Rafa Chavez DO Primary Care Provider [phone] Encounters Date Type Department Care Team Description 06/13/2024 Orders Only [facility] Medical Group Diabetes and Endocrinology [facility] [place] [address] ProviderNelson MD 06/08/2024 1:18 PM WORKERS COMPENSATION CLAIMS SUPERVISOR - 06/08/2024 11:59 PM WORKERS COMPENSATION CLAIMS SUPERVISOR Hospital Encounter [facility] [address] [place] [address] Type 2 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 disease, with long-term current use of insulin (HCC) Discharge Disposition: Discharge to home or self care 06/08/2024 1:15 PM WORKERS COMPENSATION CLAIMS SUPERVISOR Office Visit [facility] [address] [facility] [address] [address] Terra Joiner PA Type 2 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 disease, with long-term current use of insulin (HCC) (Primary Dx); Hypertension associated with diabetes (HCC); Mixed diabetic hyperlipidemia associated with type 2 diabetes mellitus (CMS/HCC) (HCC) 06/02/2024 1:00 PM WORKERS COMPENSATION CLAIMS SUPERVISOR Office Visit [facility] Cardiology [address] [place] [address] [address] [place] [phone] Malu Solomon NP Edema, lower extremity (Primary Dx); Chronic combined systolic and diastolic CHF (congestive heart failure) (CMS/HCC) (HCC); Stage 3b chronic kidney disease (HCC) 06/01/2024 Telephone [place] [address] [place] [phone] Nabil Harding MD 05/12/2024 Documentation [place] [address] [place] [phone] Shila Bowers MA 05/10/[address] [place] [phone] Nabil Harding MD Medication Problem 05/10/2024 8:30 AM WORKERS COMPENSATION CLAIMS SUPERVISOR Office Visit [place] [address] [place] [phone] Nabil Harding MD Coronary artery disease involving [place] coronary artery of [place] heart without angina pectoris (Primary Dx); S/P CABG x 2; Cardiomyopathy, ischemic; S/P angioplasty with stent; Chronic systolic congestive heart failure (CMS/HCC) ([facility]); S/P aortic valve replacement with bioprosthetic valve; Hypertension associated with diabetes ([facility]); Stage 3b chronic kidney disease ([facility]); Morbid obesity with BMI of 40.0-44.9, adult ([facility]); MARY on CPAP 04/17/[address] [place] [phone] Nabil Harding MD 04/17/2024 9:30 AM WORKERS COMPENSATION CLAIMS SUPERVISOR - 04/17/2024 11:30 AM [facility] Surgery [facility] Cardiac Catheterization Lab [address] [place] [address] Nabil Harding MD PCI SHAYY MAJOR CORONARY [id number] - [id number] 04/17/2024 6:10 AM WORKERS COMPENSATION CLAIMS SUPERVISOR - 04/17/2024 3:36 PM WORKERS COMPENSATION CLAIMS SUPERVISOR Hospital Encounter [facility] Cardiac [facility]atheterization Lab [address] [place] [address] Nabil Harding MD Coronary artery disease involving [place] coronary artery of [place] heart without angina pectoris Discharge Disposition: Discharge to home or self care 04/13/2024 Telephone [facility] Cardiology [address] [place] [phone] Nabil Harding MD 04/10/2024 Telephone [facility] Cardiology [address] [place] [phone] Nabil Harding MD 04/05/2024 3:00 PM WORKERS COMPENSATION CLAIMS SUPERVISOR Ancillary Procedure [facility] Cardiology [address] [place] [address] [address] [place] [phone] Chronic heart failure with preserved ejection fraction (CMS/HCC) ([facility]); S/P aortic valve replacement with bioprosthetic valve 03/27/2024 Telephone [facility] Cardiology [address] [place] [phone] Nabil Harding MD lab order 03/27/2024 10:30 AM WORKERS COMPENSATION CLAIMS SUPERVISOR - 03/27/2024 12:00 PM WORKERS COMPENSATION CLAIMS SUPERVISOR Surgery [facility]atheterization [facility] [address] [place] [address] Nabil Harding MD RIGHT LEFT HEART CATHETERIZATION WITH CORONARY ANGIOGRAPHY GRAFT AND WITH OR WITHOUT LEFT VENTRICULOGRAPHY [id number] 03/27/2024 6:31 AM WORKERS COMPENSATION CLAIMS SUPERVISOR - 03/27/2024 3:17 PM WORKERS COMPENSATION CLAIMS SUPERVISOR Hospital Encounter [facility] Cardiac Catheterization Lab [address] [place] [address] Nabil Harding MD Coronary artery disease involving [...] 1 tablet (300 mg total) by mouth teacher early childhood development before breakfast 0 Active alpha lipoic acid [...] (06/09/2022): Added automatically from request for surgery [id number] Carotid stenosis, right 01/07/2022 Overview (01/07/2022): Added automatically from request for surgery [id number] Assessment & Plan (04/19/2023 1:00 PM WORKERS COMPENSATION CLAIMS SUPERVISOR): Status post TCAR. Stent patent. Continue anti-platelet therapy follow-up 6 months. Assessment & Plan (03/12/2022 5:16 PM WORKERS COMPENSATION CLAIMS SUPERVISOR): Impression: Patient is status post right [...] (02/05/2020): Added automatically from request for surgery [id number] Hx of colonic polyps 10/10/2019 Overview (10/10/2019): Added automatically from request for surgery [id number] History of colon polyps 07/10/2019 Overview (07/10/2019): Added automatically from request for surgery [id number] Hypertension associated with diabetes 06/29/2019 Assessment & Plan (06/08/2024 2:36 PM WORKERS COMPENSATION CLAIMS SUPERVISOR): Chronic problem, Controlled on metoprolol, Entresto, HCTZ, bumetanide, hydralazine, amlodipine. No changes. Assessment & Plan (04/19/2023 1:00 PM WORKERS COMPENSATION CLAIMS SUPERVISOR): Hypertension chronic controlled. Continue current medical management Assessment & Plan (01/14/2022 9:31 AM CDT): Hypertension chronic and controlled. Continue current medical therapy. Chronic heart failure with p reserved ejection fraction ([facility]) 06/29/2019 Morbid obesity with BMI of [...] associated with type 2 diabetes mellitus ([facility] 05/06/2015 Overview (08/07/2016): Type 2 diabetes mellitus with complication Assessment & Plan (06/08/2024 2:36 PM WORKERS COMPENSATION CLAIMS SUPERVISOR): Chronic problem. On statin therapy, no changes. Assessment & Plan (04/19/2023 1:00 PM WORKERS COMPENSATION CLAIMS SUPERVISOR): Hyperlipidemia chronic and controlled. Continue current [...] complication Assessment & Plan (06/08/2024 2:37 PM WORKERS COMPENSATION CLAIMS SUPERVISOR): Chronic problem, improving but not at goal. [...] Overview (08/07/2016): S/P CABG x 2 Immunizations Immunization Administration Dates Next Due Influenza, [...] on file Legal Sex Male 1:58 AM WORKERS COMPENSATION CLAIMS SUPERVISOR Gender Identity Not on file Sexual Orientation Not on file Last Filed Vital Signs Vital Sign Reading Time Taken Comments Blood Pressure 136/62 06/08/2024 1:27 PM WORKERS COMPENSATION CLAIMS SUPERVISOR Pulse 79 06/08/2024 1:27 PM WORKERS COMPENSATION CLAIMS SUPERVISOR Temperature 36.7 C (98 F) 04/17/2024 7:04 AM WORKERS COMPENSATION CLAIMS SUPERVISOR Respiratory Rate 18 06/08/2024 1:27 PM WORKERS COMPENSATION CLAIMS SUPERVISOR Oxygen Saturation 95% 06/02/2024 1:00 PM WORKERS COMPENSATION CLAIMS SUPERVISOR Inhaled Oxygen Concentration - - Weight 127.3 kg (280 lb 8.6 oz) 06/08/2024 1:27 PM WORKERS COMPENSATION CLAIMS SUPERVISOR Height 172.7 cm (5' 8 ) 06/08/2024 1:27 PM WORKERS COMPENSATION CLAIMS SUPERVISOR Body Mass Index 42.66 06/08/2024 1:27 PM WORKERS COMPENSATION CLAIMS SUPERVISOR Plan of Treatment Not on file Goals Goal Patient Goal Type Associated Problems Recent Progress Patient-Stated? Author CCM Chronic Pain Care Plan Chronic Care Management No change(04/14 11:08 AM WORKERS COMPENSATION CLAIMS SUPERVISOR) No Pool Frey RN Note: Problem: Chronic Pain Goals: 1. Minimize further functional decline 2. Maximize quality of life 3. Control pain Strategies: - Activity/exercise program recommendation - Conservative stepwise pain medicine strategy with multi-disciplinary approach - Recommend healthy lifestyle strategies and compensatory methods as needed Medical Devices Implanted Type Area Crayon Molding Machine Operator Device Identifier Shelf Expiration Date Model / Serial / Lot Total Knee Left: Knee Medtronic Inc Resolute [place] 3mm 2.1-2.7fr 12mm 140cm Rapid Exchange Radiopaque [id number] - [id number] Implanted:Qty: 1 on 09/03/2021 by Bindu Goins MD at [facility] Medtronic Inc 06/11/2024 [id number] / / Medtronic Inc Resolute [place] 3.5mm 2.1-2.7fr 15mm 140cm Rapid Exchange [id number] - [id number] Implanted:Qty: 1 on 09/03/2021 by Bindu Goins MD at [facility] Medtronic Inc 04/04/2024 [id number] / / Angio-Seal Vip 6fr Closere Device [id number] - [id number] Implanted:Qty: 1 on 09/03/2021 by Bindu Goins MD at [facility] TerZinio Miya 06/02/2022 [id number] / / SimplyInsured [facility] Enroute Uber Flex 8mm .065in 40mm 57cm Delivery System Angle Tip [id number] - [id number] Implanted:Qty: 1 on 01/29/2022 by Neeraj La MD at [facility] Right: Carotid Simply[employer]ured Inc 08/30/2024 [id number] / / [id number] Matilde Biomet Inc 4.5mm 16mm Fix Screw Bone [id number] - [id number] Implanted:Qty: 3 on 06/30/2022 by Fredy Nguyen MD at [facility] N/A: Spine Cervical MATILDE BIOMET SPINE INC [id number] 6 / / Musculoskeletal Transplant 12.1m13e3kb Frozen Spine 7d Lordotic Trapezoid Spacer Allograft [id number] - [id number] - [id number] Implanted:Qty: 1 on 06/30/2022 by Fredy Nguyen MD at [facility] N/A: Spine Cervical Musculoskeletal Transplant [id number] 03/25/2025 [id number] / [id number] / Musculoskeletal Transplant 12.2m79c3ee Frozen Spine 7d Lordotic Trapezoid Spacer Allograft 085559 - [id number] - [id number] Implanted:Qty: 1 on 06/30/2022 by Fredy Nguyen MD at [facility] N/A: Spine Cervical Musculoskeletal Transplant [id number] 01/03/2025 [id number] / [id number] / Musculoskeletal Transplant 12.4f66y6vd Frozen Spine 7d Lordotic Trapezoid Spacer Allograft [id number] - [id number] - [id number] Implanted:Qty: 1 on 06/30/2022 by Fredy Nguyen MD at [facility] N/A: Spine Cervical Musculoskeletal Transplant [id number] 04/26/2026 [id number] / [id number] / Matilde [employer]omet Inc C-Ervin Maxan 51mm Level 3 Fix Spine Cervical Anterior Plate Bone [id number] - [id number] Implanted:Qty: 1 on 06/30/2022 by Fredy Nguyen MD at [facility] N/A: Spine Cervical MATILDE BIOMET SPINE INC [id number] / / Matilde Biomet Inc 4mm 16mm Fix Screw Bone [id number] - [id number] Implanted:Qty: 5 on 06/30/2022 by Fredy Nguyen MD at [facility] N/A: Spine Cervical MATILDE BIOMET SPINE INC [id number] / / Access Closure Inc Device 10ml 5fr Closure Mynx Control 2 Mode Balloon Catheter [id number] - [id number] Implanted:Qty: 1 on 03/27/2024 by Nabil Harding MD at [facility] Access Closure Inc 01/18/2026 [id number] / / [id number] Medtronic Card Vasc Surgery 4.0 X 18mm [place] Rx Coronary Stent [id number] - [id number] Implanted:Qty: 1 on 04/17/2024 by Nabil Harding MD at [facility] Medtronic Card Vasc Surgery 12/26/2026 [id number] / / [id number] Access Closure Inc Mynx Control 6-7fr 2 Mode Balloon Catheter Sealant Lock Syringe [id number] - [id number] Implanted:Qty: 1 on 04/17/2024 by Nabil Harding MD at [facility] Access Closure Inc 01/05/2026 [id number] / / [id number] Procedures Procedure Name Priority Date/Time Associated Diagnosis Comments POCT GLUCOSE Routine 06/08/2024 1:18 PM WORKERS COMPENSATION CLAIMS SUPERVISOR Type 2 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 disease, with long-term current use of insulin (HCC) POCT HEMOGLOBIN A1C Routine 06/08/2024 1 :18 PM WORKERS COMPENSATION CLAIMS SUPERVISOR Type 2 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 disease, with long-term current use of insulin (HCC) ALBUMIN CREATININE RATIO, URINE Routine 06/08/2024 1:18 PM WORKERS COMPENSATION CLAIMS SUPERVISOR Type 2 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 disease, with long-term current use of insulin (HCC) POCT LIPID PANEL Routine 06/08/2024 1:18 AM WORKERS COMPENSATION CLAIMS SUPERVISOR Type 2 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 disease, with long-term current use of insulin (HCC) HM CREATININE Routine 05/31/2024 12:52 PM WORKERS COMPENSATION CLAIMS SUPERVISOR COMPREHENSIVE METABOLIC PANEL Routine 05/31/2024 POCT GLUCOSE DEVICE Routine 04/17/2024 1 0:45 AM WORKERS COMPENSATION CLAIMS SUPERVISOR PCI SHAYY STENT ADDTN'L COR BRANCH (+) [id number] Routine 04/17/2024 10:23 AM WORKERS COMPENSATION CLAIMS SUPERVISOR Coronary artery disease involving [place] coronary artery of [place] heart without angina pectoris PERCUTANEOUS CORONARY LITHROTRIPSY W/ PCI (+) 44613 Routine 04/17/2024 10:23 AM WORKERS COMPENSATION CLAIMS SUPERVISOR Coronary artery disease involving [place] coronary artery of [place] heart without angina pectoris CORONARY OCT, 1ST VESSEL Routine 04/17/2024 10:23 AM WORKERS COMPENSATION CLAIMS SUPERVISOR Coronary artery disease involving [place] coronary artery of [place] heart without angina pectoris VASCULAR ACCESS US GUIDANCE Routine 04/17/2024 10:23 AM WORKERS COMPENSATION CLAIMS SUPERVISOR Coronary artery disease involving [place] coronary artery of [place] heart without angina pectoris SHAYY MAJOR CORONARY Routine 04/17/2024 10 :23 AM WORKERS COMPENSATION CLAIMS SUPERVISOR Coronary artery disease involving [place] coronary artery of [place] heart without angina pectoris MODERATE SEDATION FIRST 15MIN 5+ YEAR 85507 04/17/2024 9:00 AM WORKERS COMPENSATION CLAIMS SUPERVISOR Coronary artery disease involving [place] coronary artery of [place] heart without angina pectoris POCT GLUCOSE DEVICE Routine 04/17/2024 8 :27 AM WORKERS COMPENSATION CLAIMS SUPERVISOR TRANSTHORACIC ECHO (TTE) COMPLETE W DOPPLER/CF WO CONTRAST Routine 04/05/2024 4:20 PM WORKERS COMPENSATION CLAIMS SUPERVISOR Chronic heart failure with preserved ejection fraction (CMS/HCC) (HCC) S/P aortic valve replacement with bioprosthetic valve POCT GLUCOSE DEVICE Routine 03/27/2024 1 2:08 PM WORKERS COMPENSATION CLAIMS SUPERVISOR CORONARY FLOW VELOCITY (CFR) / INSTATANEOUS FLOW VELOCITY (IFR), 1ST VESSEL Routine 03/27/2024 11:45 AM WORKERS COMPENSATION CLAIMS SUPERVISOR Coronary artery disease involving [place] coronary artery of [place] heart without angina pectoris Cardiovascular stress test abnormal RIGHT LEFT HEART CATHETERIZATION CORONARY GRAFT WITH WITHOUT LEFT VENTRICULOGRAPHY ANGIOGRAM Routine 03/27/2024 11:45 AM WORKERS COMPENSATION CLAIMS SUPERVISOR Coronary artery disease involving [place] coronary artery of [place] heart without angina pectoris Cardiovascular stress test abnormal VASCULAR ACCESS US GUIDANCE Routine 03/27/2024 11:45 AM WORKERS COMPENSATION CLAIMS SUPERVISOR Coronary artery disease involving [place] coronary artery of [place] heart without angina pectoris Cardiovascular stress test abnormal MODERATE SEDATION FIRST 15MIN 5+ YEAR [address] 03/27/2024 10:46 AM WORKERS COMPENSATION CLAIMS SUPERVISOR Coronary artery disease involving [place] coronary artery of [place] heart without angina pectoris Cardiovascular stress test abnormal POCT GLUCOSE DEVICE Routine 03/27/2024 7 :13 AM WORKERS COMPENSATION CLAIMS SUPERVISOR HEPATITIS C AB REFLEX RNA QUANT PCR Routine 06/14/2019 3:47 PM WORKERS COMPENSATION CLAIMS SUPERVISOR COLONOSCOPY REPORT 05/18/2014 from Last 3 Months or Most Recently Relevant to Health Maintenance Results * (ABNORMAL) POCT hemoglobin A1c (06/08/2024 1:18 PM WORKERS COMPENSATION CLAIMS SUPERVISOR) Pathologist [facility] Hemoglobin A1C, POC 8.3 4.0 - 5.6 % Capillary blood 06/08/2024 1 :18 PM WORKERS COMPENSATION CLAIMS SUPERVISOR Terra CRUZ POINT OF CARE TEST ORDE RABLES Final Result * (ABNORMAL) Albumin Creatinine Ratio, Urine (06/08/2024 1:18 PM WORKERS COMPENSATION CLAIMS SUPERVISOR) [facility] Albumin Ur 68.0 mg/L Comment: Interpretive Data No reference range established. Current interpretive data was last revised 2018. Creatinine Ur 32.5 mg/dL [facility] Comment: Interpretive Data No reference range established. Current interpretive data was last revised 2018. Albumin Creatinine Ratio, Ur 209(H) 1 - 29 mg/g [facility] Urine 06/08/2024 1:18 PM WORKERS COMPENSATION CLAIMS SUPERVISOR 06/08/2024 7:31 PM WORKERS COMPENSATION CLAIMS SUPERVISOR Terra CRUZ LAB URINE ORDERABLES Fi nal Result [facility] [address] [address] Department [place] [address] * (ABNORMAL) POCT glucose (06/08/2024 1:18 PM WORKERS COMPENSATION CLAIMS SUPERVISOR) [facility] Glucose Blood, POC 204 mg/dL Comment:PPG 2.5 Hrs Blood 06/08/2024 1:18 PM WORKERS COMPENSATION CLAIMS SUPERVISOR Terra CRUZ POINT OF CARE TEST ORDE RABLES Final Result * (ABNORMAL) POCT lipid panel (06/08/2024 1:18 AM WORKERS COMPENSATION CLAIMS SUPERVISOR) Pathologist [facility] Cholesterol, POC 154 mg/dL HDL, POC 25 mg/dL Triglycerides, POC 271 mg/dL LDL Cholesterol POC 75 mg/dL Chol/HDL Ratio, POC 6.2 Non-HDL Cholesterol, POC 129 mg/dL Cholesterol Total, POC 154 mg/dL Capillary blood 06/08/2024 1 :18 AM WORKERS COMPENSATION CLAIMS SUPERVISOR Result [facility] Terra CRUZ POINT OF CARE TEST ORDMichelle RABAMBER Final Result * (ABNORMAL) HM CREATININE (05/31/2024 12:52 PM WORKERS COMPENSATION CLAIMS SUPERVISOR) SCRIBED Creatinine 2.16(A) 0.7 - 1.3 mg/dl EXTERNAL LAB SCRIBED eGFR in NonAfrican [place] 30 >59 - NA EXTERNAL LAB Blood 05/31/2024 12:5 2 PM WORKERS COMPENSATION CLAIMS SUPERVISOR Result [facility] Historical Provider HEALTH MAINTENANCE Edited Result - Final EXTERNAL LAB * Comprehensive metabolic panel (05/31/2024) Blood Impressions EXTERNAL LAB - 05/31/2024 Lab ordered in error Result [facility] Historical Provider LAB BLOOD ORDERABLES Edit ed Result - Final EXTERNAL LAB * POCT glucose (04/17/2024 10:45 AM WORKERS COMPENSATION CLAIMS SUPERVISOR) Glucose, POC 133 70 - 199 mg/dL Blood 04/17/2024 10:4 5 AM WORKERS COMPENSATION CLAIMS SUPERVISOR 04/17/2024 10:45 AM WORKERS COMPENSATION CLAIMS SUPERVISOR Result [facility] Nabil Harding MD LAB POCT ORDERABLES - [place] [address] [address] Department of Laboratories [place], [place] [id number] * SHAYY MAJOR CORONARY, VASCULAR ACCESS US GUIDANCE, CORONARY OCT, 1ST VESSEL, PERCUTANEOUS CORONARY LITHROTRIPSY W/ PCI (+) 50647, PCI SHAYY STENT ADDTN'L COR BRANCH (+) [id number] (04/17/2024 10:23 AM WORKERS COMPENSATION CLAIMS SUPERVISOR) Anatomical Region Laterality Modality X-Ray Angiograph y Addenda Addendum by Nabil Harding MD on 04/17/2024 10:55 AM WORKERS COMPENSATION CLAIMS SUPERVISOR CARDIAC CATHETERIZATION AND INTERVENTION REPORT DATE [...] from 02/15/2024 reportedly showed LVEF 33%; small, jhom-hy-txzsxtmr reversible defect in apical anterior and apical [...] groin hematoma, retroperitoneal bleed, vessel perforation; periprocedural ID, cardiac arrhythmias, stroke, contrast induced nephropathy, and [...] a 4.0 x 18 mm Medtronic sherine [place] zotarolimus eluting stent with good angiographic and IVUS results (proximal optimization into left main) Moderate sedation-CPT code 28892 and beyond Deployment of Mynx vascular closure device MODERATE SEDATION: Midazolam 1 mg , Fentanyl 25 mcg, start time 0927 stop time 1023, total direct pudx-wk-fcpw monitoring of conscious sedation 56 minutes (CPT 25378) TRAINED OBSERVER: Abisai Woods RN was trained observer for moderate sedation. ACCESS SITE: Right common femoral artery PROCEDURE: After obtaining informed consent, patient was brought to the laboratory development technician and prepped and draped in the usual sterile manner. Time-out and immediate reassessment of the patient was performed. After local anesthesia with lidocaine, right common femoral artery access was taken with micropuncture needle under ultrasound guidance followed by insertion of a 6 [place] sheath. Selective left coronary angiogram was performed using 6 [place] JL4 guide catheter. Estimated blood loss was [...] artery ostium was selectively engaged using 6 [place] JL4 guide catheter. Bivalirudin was used for procedural anticoagulation. Patient has been on dual antiplatelet therapy, today's dose of clopidogrel was given in the laboratory development technician. 0.014 luge wire was advanced and the stenosis at the ostium of the LAD was crossed. The guidewire was advanced in the distal LAD. IVUS was performed using a Comic Wonder eye IVUS catheter. The reference diameter was [...] Next 4.0 x 18 mm Medtronic sherine [place] ZES was advanced to the target lesion [...] a 4.0 x 18 mm Medtronic sherine [place] ZES will good IVUS and angiographic results. PLAN/RECOMMENDATIONS: Continue dual antiplatelet therapy, statin; and guideline directed medical treatment for CHFrEF. Outpatient Cardiology follow-up. Voice recognition software was used to complete this document, therefore, hedis nurse variances may occur. Nabil Harding MD, [facility] 04/17/24 Nabil Harding MD CV CARDIAC CATH PROCEDURES Edite d Result - Final * POCT glucose (04/17/2024 8:27 AM WORKERS COMPENSATION CLAIMS SUPERVISOR) Glucose, POC 166 70 - 199 mg/dL Blood 04/17/2024 8:27 AM WORKERS COMPENSATION CLAIMS SUPERVISOR 04/17/2024 8:27 AM WORKERS COMPENSATION CLAIMS SUPERVISOR Nabil Harding MD LAB POCT ORDERABLES - DEVICE Fin al Result Performing Organization Address City/State/[facility] Co de Phone Number [facility] [address] [address] Department of Laboratories [place], [place] [id number] * TRANSTHORACIC ECHO (TTE) COMPLETE W DOPPLER/CF WO CONTRAST (04/05/2024 4:20 PM WORKERS COMPENSATION CLAIMS SUPERVISOR) Anatomical Region Laterality Modality Ultrasound 04/05/2024 3:53 PM WORKERS COMPENSATION CLAIMS SUPERVISOR Narrative 04/06/2024 7:04 AM WORKERS COMPENSATION CLAIMS SUPERVISOR [facility] Medical Group Cardiology [address] [facility] [place] [address], [place] [address] [address] [facility] [address] [place], [place] [address] P:[phone] P:[phone] Echocardiographic Report Patient Name: TAMIKA AGUILAR D : 1945 Study Date: 04/05/2024 3:53:42 PM Gender: M Tech: MOISÉS Location: [place] Ref Provider: NABIL HARDING Height(Cm): 160 BSA: 2.08 Weight(Kg): 97.1 Heart Rate: 87 BP: 134 / 81 Quality: Good Order Provider: KOUL,NABIL PROCEDURES: Echocardiographic Report: Transthoracic echocardiogram with complete [...] Site: Exam was interpreted at [facility]. Left Ventricle: Severe enlargement of left [...] Electronically Signed By: Jose Antonio Walls MD, [facility] 04/06/2024 7:04:01 AM WORKERS COMPENSATION CLAIMS SUPERVISOR Procedure Note Jose Antonio Walls MD - 04/06/2024 [facility] Medical Group Cardiology [address] [facility] [address], [place] [address] [address] [facility] [address], [place] [address] P:[phone] P:[phone] Echocardiographic Report Patient Name: TAMIKA AGUILAR D : 1945 Study Date: 04/05/2024 3:53:42 PM Gender: M Tech: Location: [place] Ref Provider: NABIL HARDING Height(Cm): 160 BSA: [...] Site: Exam was interpreted at [facility]. Left Ventricle: Severe enlargement of left [...] Electronically Signed By: Jose Antonio Walls MD, [facility] 04/06/2024 7:04:01 AM WORKERS COMPENSATION CLAIMS SUPERVISOR us Nabil Harding MD CV ECHO PROCEDURES Final Result * POCT glucose (03/27/2024 12:08 PM WORKERS COMPENSATION CLAIMS SUPERVISOR) Glucose, POC 157 70 - 199 mg/dL Blood 03/27/2024 12:0 8 PM WORKERS COMPENSATION CLAIMS SUPERVISOR 03/27/2024 12:08 PM WORKERS COMPENSATION CLAIMS SUPERVISOR us Nabil Harding MD LAB POCT ORDERABLES - DEVICE Fin al Result [facility] [address] [address] Department of Laboratories [place], [place] [id number] * VASCULAR ACCESS US GUIDANCE, RIGHT LEFT HEART CATHETERIZATION CORONARY GRAFT WITH WITHOUT LEFT VENTRICULOGRAPHY ANGIOGRAM, CORONARY FLOW VELOCITY (CFR) / INSTATANEOUS FLOW VELOCITY (IFR), 1ST VESSEL (03/27/2024 11:45 AM WORKERS COMPENSATION CLAIMS SUPERVISOR) Anatomical Region Laterality Modality X-Ray Angiograph y Addenda Addendum by Nabil Harding MD on 03/27/2024 12:11 PM WORKERS COMPENSATION CLAIMS SUPERVISOR CARDIAC CATHETERIZATION AND INTERVENTION REPORT DATE [...] from 02/15/2024 reportedly showed LVEF 33%; small, ypty-at-swoncykq reversible defect in apical anterior and apical [...] groin hematoma, retroperitoneal bleed, vessel perforation; periprocedural ID, cardiac arrhythmias, stroke, contrast induced nephropathy (elevated risk due to underlying CKD), and . After discussing all the benefits, risks and alternatives, patient was willing to proceed with the procedure. PROCEDURES PERFORMED: Ultrasound-guided right common femoral arterial access Selective left and right coronary angiogram Selective bypass graft Angiography Percutaneous coronary intervention-IFR of ostial left anterior descending artery Moderate sedation-CPT code 82796 and beyond Deployment of Mynx vascular closure device MODERATE SEDATION: Midazolam 1 mg , Fentanyl 25 mcg, start time 1059 stop time 1145, total direct [id number]-za-[id number] monitoring of conscious sedation 46 minutes (CPT 72029) TRAINED OBSERVER: Bernadette Putnam RN was trained observer for moderate sedation. ACCESS SITE: Right common femoral artery PROCEDURE: After obtaining informed consent, patient was brought to the laboratory development technician and prepped and draped in the usual sterile manner. Time-out and immediate reassessment of the patient was performed. After local anesthesia with lidocaine, right common femoral artery access was taken with micropuncture needle under ultrasound guidance followed by insertion of a 5 Northern Irish sheath. Selective left and right coronary angiography was performed using 5 Northern Irish JL4 and 5F JR4 catheters respectively. Orthogonal views were taken. JR4 diagnostic catheter was used for selective bypass graft Angiography of aortic coronary bypass grafts. Bioprosthetic Aortic valve was not crossed. Estimated blood loss was minimal. All specimens removed. The angiographic and other findings, and details of intervention are given below. FINDINGS: [place] CORONARY ARTERIES: LEFT MAIN CORONARY: Large caliber, [...] stenosis. SVG TO RPDA: Large caliber graft, [id number]-[id number]-qlaumyec, 30-50% diffuse plaque is seen in the [...] guidewire was zeroed outside the body. Five Northern Irish JL4 guide catheter was advanced into the [...] was used to complete this document, therefore, hedis nurse variances may occur. Nabil Harding MD, [facility] 03/27/24 Nabil Harding MD CV CARDIAC CATH PROCEDURES Edite d Result - Final * POCT glucose (03/27/2024 7:13 AM WORKERS COMPENSATION CLAIMS SUPERVISOR) Pathologist [facility] Glucose, POC 172 70 - 199 mg/dL Blood 03/27/2024 7:13 AM WORKERS COMPENSATION CLAIMS SUPERVISOR 03/27/2024 7:13 AM WORKERS COMPENSATION CLAIMS SUPERVISOR Nabil Harding MD LAB POCT ORDERABLES - DEVICE Fin al Result [facility] [address] [address] Department [place] [employer] [place] [address] * Hepatitis C Antibody Reflex Hepatitis C RNA Quantitative PCR Blood (06/14/2019 3:47 PM WORKERS COMPENSATION CLAIMS SUPERVISOR) Hep C Ab Negative Negative [facility] Blood specimen (specimen) 06/14/2019 3:47 PM WORKERS COMPENSATION CLAIMS SUPERVISOR 06/14/2019 8:03 PM WORKERS COMPENSATION CLAIMS SUPERVISOR us Notinfile Unknown LAB MICROBIOLOGY - GENERAL ORD ERABLES Final Result [facility] [address] [place] [address] * COLONOSCOPY REPORT (05/18/2014) Anatomical Region Laterality Modality Other Narrative 05/18/2014 Ordered by an unspecified provider. Historical Provider GI PROCEDURE ORDERABLES F inal Result from Last 3 Months or Most Recently Relevant to Health Maintenance Insurance [employer] MEDICARE PPO [employer] MEDICARE PPO [employer] CHOICE MEDICARE PPO HU[employer] CHOICE MEDICARE PPO Advance Directives For more information, please contact: [phone] * Full Code (Latest Code Status on File) Date Activated Date Inactivated Comments 06/30/2022 6:44 PM 07/03/2022 5:32 PM * Full Code Date Activated Date Inactivated Comments 06/30/2022 6:39 PM 06/30/2022 6:44 PM * Full Code Date Activated Date Inactivated Comments 01/29/2022 2:14 PM 01/30/2022 6:06 PM * Full Code Date Activated Date Inactivated Comments 09/03/2021 12:10 PM 09/04/2021 7:37 PM Care Teams Musical Instrument Maker Relationship Specialty Start Date End Date Rafa Chavez DO [address] [place] [address] [place] [address] PCP - General Internal Medicine 06/01/24 Yfn Gill MD Referring Physician Nephrology 01/22/22 Aguila Chris MD Consulting Physician Cardiology 01/22/22 [place] [id number] [address] Consulting Physician Endocrinology Diabetes & Metabolism 01/22/22 Neeraj La MD [address] [address] Surgeon Vascular Surgery 01/30/22
--- OUTSIDE RECORDS SUMMARY | 2024-06-22 13:51 | XMS_ITS | Clinical Summary ---
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 Gender Identity Not on file Sexual Orientation Not on file Last Filed Vital Signs Vital Sign Reading Time Taken Comments Blood Pressure 138/67 10/12/2023 3:33 PM CDT Pulse 85 10/12/2023 3:33 PM CDT Temperature 37.1 C (98.7 F) 10/12/2023 3:33 PM CDT Respiratory Rate 18 06/22/2023 12:59 PM PUSH CONNECTOR ASSEMBLER Oxygen Saturation 96% 10/12/2023 3:33 PM CDT [...] 02/24/2022, 02/27/2021, Additional history exists PHQ-2 (Physician [place]) 05/03/2024 10/12/2023 Lipid Panel 06/16/2024 06/16/2023 Zoster Vaccines Completed 05/07/2021, 02/18/2021 Meningococcal B Vaccine Aged Out No l onger eligible based on patient's age to complete this topic Meningococcal Vaccine Aged Out No jorge kelsi eligible based on patient's age to complete this topic RSV Immunizations Under 20 Months Aged Out No longer eligible based on patient's age to complete this topic Insurance [facility] Care Teams Instrumentation Specialist Relationship Specialty Start Date End Date Arnel Gonzalez MD [address] [place] [address] PCP - General INTERNAL MEDICINE 06/22/23
--- OUTSIDE RECORDS SUMMARY | 2024-06-22 13:51 | XMS_ITS | Continuity of Care Document ---
Author Organization [facility] Address [address] [facility] [address] [place] [address] Phone Care Team Providers Care Outpatient Scheduler Name Role Phone Zaheer Tom Unavailable Unavailable [...] Diagnoses Date Provider Providers Copied on Encounter [facility], [address], [place], [place], [id number], [place] tel:[phone] SEC [facility] No Information 0 Vaishali Schwab. [facility], [address], [place]. tel:[phone] Referring Provider: Zaheer evans, [address] [address], [place], [address]. tel:[phone] [facility], [address], [place], [place], [id number], [place] tel:[phone] [facility] [place] No Information [phone] Krishnasamy Zaheer. [address] [place], [place] [address]ate [place] [address], [place], [place], [facility], [place]. tel:[phone] [facility], [address], [place], [place], [id number], [place] tel:[phone] SEC [facility] No Information [address] [employer]. [address] [facility], [address], [place], [place], [address], [place]. tel:[phone] Referring Provider: Zaheer evans, [address] [place], [place] [address]ate [facility] 102, [place], [place], [facility]. tel:[phone] sulting Provider: Leif Pineda, [address] [place] [address], [place], [place], [facility]. tel:[phone] [facility], [address] [place] [address] [address], [place], [place], [address], [place] tel:[phone] SEC [facility] No Information 9 Krishnasamy Zaeher. [address] [place], [place] [address]ate [facility] 102, [place], [place], [facility], [place]. tel:[phone] Referring Provider: Zaheer evans, [address] [place], [place] [address]ate [facility] 102, [place], [place], [facility]. tel:[phone] [facility], [address] [place] [address] [address], [place], [place], [id number], [place] tel:[phone] [facility] [place] No Information 200 9 Krishnasamy Zaheer. [address] [place], [place] [address]ate [facility] 102, [place], [place], [facility], [place]. tel:[phone] [facility], [address], [place], [place], [address], [place] tel:[phone] [facility] No Information 200 7 Juan Daniel Rios. [address] [facility], [address], [place], [place], [address], [place]. tel:[phone] Family History Family Member Type Diagnosis Age At Onset No Information Payers Payer name Insurance type Covered alliance party ID Authoriza tion(s) [place] [id number] Social History Type Description Quantity Date Captured [...]
--- OUTSIDE RECORDS SUMMARY | 2024-06-22 13:51 | XMS_ITS | Patient Health Summary ---
Author Organization [facility] Address [address] [facility] [place] [address] Care Team Providers Care Photographic Process Screen Maker Name Role Phone SabrinaArnel barbour Devan ROBISON Primary Care Provider [phone] Note from [facility],non-owned Affiliates and Associated Physician Practices is amultiple site organization consisting of ambulatory clinics and hospital sitesin [place], [place], [place] and [place]. This disclosure is being madepursuant to the Care Everywhere program and may not contain all information available regarding this patient. Last updated 18.[facility] Allergies * Codeine(Itching) -Medium Criticality * [...] Comments Blood Pressure 136/70 05/05/2021 1:09 PM INSIDE TRUCKER Pulse 76 05/05/2021 1:09 PM INSIDE TRUCKER Temperature - - Respiratory Rate 14 05/05/2021 1:09 PM INSIDE TRUCKER Oxygen Saturation 98% 05/05/2021 1:09 PM INSIDE TRUCKER Inhaled Oxygen Concentration - - Weight 121.1 kg (267 lb) 05/05/2021 1:09 PM INSIDE TRUCKER Height 172.7 cm (5' 8 ) 05/05/2021 1:09 PM INSIDE TRUCKER Body Mass Index 40.6 05/05/2021 1:09 PM INSIDE TRUCKER Procedures * NERVE CONDUCTION TEST(Performed 05/05/2021) Performed for Cubital tunnel syndrome of both upper extremities Results * NERVE CONDUCTION TEST (05/05/2021 5:28 PM INSIDE TRUCKER) Narrative Kenny Bishop MD - 05/05/2021 5:28 PM INSIDE TRUCKER Kenny Bishop MD 05/06/2021 5:31 PM [facility] [place] [facility] [address] [facility] [address] [address] Test Date: 05/05/2021 Patient: Gabriel Celeste DOB: 1945 Physician: Kenny Bishop MD Sex: Male Height: 5' 8 Ref Phys: ID#: [id number] Weight: 276 lbs. Patient Complaints: Patient is [...] Bishop MD NEUROLOGY ORDERABLE S Care Teams Photographic Process Screen Maker Relationship Specialty Start Date End Date Arnel Gonzalez DO [address] [facility] [address] [place] [address] PCP - General 01/03/21
--- OUTSIDE RECORDS SUMMARY | 2024-06-22 13:51 | XMS_ITS | Referral Summary ---
Author Organization [facility] Address [address] [facility] [place] [address] Care Team Providers Care Pulley Maintainer Name Role Phone Arnel Gonzalez Primary Care Provider [phone] Source Comments [facility],non-[facility] Affiliates and Associated Physician Practices is amultiple site organization consisting of ambulatory clinics and hospital sitesin [place], [place] and [place]. This disclosure is being madepursuant to the Care Everywhere program and may not contain all information available regarding this patient. Last updated 18.[facility] Allergies Active Allergy Reactions Criticality Noted Date [...] Comments Blood Pressure 136/70 05/05/2021 1:09 PM SYNCHRO ASSEMBLER Pulse 76 05/05/2021 1:09 PM SYNCHRO ASSEMBLER Temperature - - Respiratory Rate 14 05/05/2021 1:09 PM SYNCHRO ASSEMBLER Oxygen Saturation 98% 05/05/2021 1:09 PM SYNCHRO ASSEMBLER Inhaled Oxygen Concentration - - Weight 121.1 kg (267 lb) 05/05/2021 1:09 PM SYNCHRO ASSEMBLER Height 172.7 cm (5' 8 ) 05/05/2021 1:09 PM SYNCHRO ASSEMBLER Body Mass Index 40.6 05/05/2021 1:09 PM SYNCHRO ASSEMBLER Plan of Treatment Not on file Care Teams Pulley Maintainer Relationship Specialty Start Date End Date Arnel Gonzalez DO [address] [facility] [address] [place], [place] [id number] PCP - General 01/03/21
[2024-06-22 20:31] LABS: Anion Gap 6 mmol/L (4-12); Blood Urea Nitrogen 28 mg/dL (9-20); Calcium 9.1 mg/dL (8.4-10.2); Carbon Dioxide 32 mmol/L (22-30); Chloride 102 mmol/L (98-107); Estimated Glomerular Filt Rate 37; Glucose 156 mg/dL (65-110); Potassium 4.4 mmol/L (3.4-5.0); Sodium 140 mmol/L (137-145)
== END 2024-06-22 13:43 | disposition home or self-care (01) ==
LOC: ANHGOSHLAB 13:47
PROVIDERS: PCP Internal Medicine; Visit Provider Clinical Nurse Specialist
DX: I12.9 Hypertensive chronic kidney disease with stage 1 through stage 4 chronic kidney disease, or unspecified chronic kidney disease (principal); N18.32 Chronic kidney disease, stage 3b
CPT/HCPCS: 36415; 80048

== ENCOUNTER 2024-07-12 14:39 | Outpatient (NON) | payer MEDICARE, SELFPAY ==
--- OUTSIDE RECORDS SUMMARY | 2024-07-12 16:30 | XMS_ITS | Clinical Summary ---
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 Gender Identity Not on file Sexual Orientation Not on file Last Filed Vital Signs Vital Sign Reading Time Taken Comments Blood Pressure 138/67 10/12/2023 3:33 PM CDT Pulse 85 10/12/2023 3:33 PM CDT Temperature 37.1 C (98.7 F) 10/12/2023 3:33 PM CDT Respiratory Rate 18 06/22/2023 12:59 PM PROSPECTING DRILLER HELPER Oxygen Saturation 96% 10/12/2023 3:33 PM CDT [...] 02/24/2022, 02/27/2021, Additional history exists PHQ-2 (Physician [place]) 05/03/2024 10/12/2023 Lipid Panel 06/16/2024 06/16/2023 Zoster Vaccines Completed 05/07/2021, 02/18/2021 Meningococcal B Vaccine Aged Out No l onger eligible based on patient's age to complete this topic Meningococcal Vaccine Aged Out No jorge kelsi eligible based on patient's age to complete this topic RSV Immunizations Under 20 Months Aged Out No longer eligible based on patient's age to complete this topic Insurance [facility] Care Teams Diet Aid Relationship Specialty Start Date End Date Arnel Gonzalez MD [address] [place] [address] PCP - General INTERNAL MEDICINE 06/22/23
--- OUTSIDE RECORDS SUMMARY | 2024-07-12 16:30 | XMS_ITS | Clinical Summary ---
Author Organization [facility] Address [address] [place] [address] Care Team Providers Care Cat Cracker Operator Name Role Phone Yfn Gill MD Unavailable [phone] Aguila Chris MD Unavailable [phone] Malcolm Castro MD Unavailable [phone] Neeraj La MD Unavailable [phone] Rafa Chavez DO Primary Care Provider [phone] Allergies Active Allergy Reactions Criticality Noted Date Comments Codeine Itching Medium 08/08/2013 Hydrocodone Nausea & Vomiting Low 01/22/2022 Tramadol Nausea & Vomiting,Na usea And Vomiting,Unknown Low 10/18/2017 severe Medications terazosin (HYTRIN) 10 mg capsule take 1 capsule by oral route every day at bedtime 0 0 11/03/19 13 Active omeprazole (PriLOSEC) 20 mg capsuleIndicatio ns:Treatment of Non-Bleeding Gastric Disorder Take 1 capsule (20 mg total) by mouth every morning Active finasteride (PROSCAR) 5 mg tablet Take 1 tablet (5 mg total) by mouth daily 90 tablet 3 08/02/19 20 Active allopurinoL (ZYLOPRIM) 300 mg tabletIndication s:prevention of acute gout attack Take 1 tablet (300 mg total) by mouth supervisor spinning before breakfast 04/14/20 20 Active alpha lipoic acid 600 mg tabletIndication s:pain Take 1 tablet by mouth nightly Active Accu-Chek Mariel Plus test strp strip 07/16/19 22 Active Accu-Chek Softclix Lancets lancets 07/16/19 22 Active Droplet Pen Needle 31 gauge x 07/16 needle 07/16/19 22 Active multivitamin tabletIndication s:Vitamin Deficiency Prevention Take 1 tablet by mouth every morning Active hydrOXYzine (ATARAX) 10 mg tabletIndication s:anxiety Take 1 tablet (10 mg total) by mouth as needed 09/24/19 22 Active Accu-Chek Guide Glucose Meter misc 03/18/20 22 Active ergocalciferol (VITAMIN D) 50,000 unit capsuleIndicatio ns:Vitamin D Deficiency Take 1 capsule (50,000 Units [...] 03/17/20 23 Active bumetanide (BUMEX) 2 mg tabletIndication s:Chronic heart failure with preserved ejection fraction (HCC) TAKE 1 TABLET TWICE DAILY 180 tablet 2 06/10/19 24 Active calcitRIOL (ROCALTROL) 0.25 mcg capsule Take 1 capsule (0.25 mcg total) by mouth daily 06/16/19 24 Active gabapentin (NEURONTIN) 300 mg capsule Take 1 capsule (300 mg total) by mouth 3 (three) times a day 06/22/19 24 Active hydroCHLOROthiaz molly (HYDRODIURIL) 25 mg tablet Take 1 tablet (25 mg total) by mouth daily 06/19/19 24 Active sacubitriL-valsa rtan (ENTRESTO) 49-51 mg tabletIndication s:chronic heart failure Take 1 tablet by mouth 2 (two) times a day 180 tablet 3 02/11/20 24 Active potassium chloride ER (KLOR-CON) 20 mEq CR tablet Take 1 tablet (20 mEq total) by mouth with evening meal 7 tablet 1 03/20/20 24 Active amitriptyline (ELAVIL) 25 mg tabletIndication s:Type 2 diabetes mellitus with stage 3 chronic kidney disease, with long-term current use of insulin, unspecified whether stage 3a or 3b CKD (HCC) TAKE 1 TABLET BY MOUTH EVERY DAY AT NIGHT 30 tablet 2 04/13/20 24 Active HumuLIN R U-500 500 unit/mL (3 mL) CONCENTRATED pen for injectionIndicat ions:DM 2 Take two times a day. aB and aD up to 340 unit daily as instructed per SS. 60 mL 3 04/27/20 24 Active clopidogreL (PLAVIX) 75 mg tablet TAKE 1 TABLET EVERY DAY 90 tablet 2 05/01/20 24 Active dapagliflozin propanediol (FARXIGA) 10 [...] daily 90 tablet 6 05/10/19 25 Active ammonium lactate (LAC-HYDRIN) 12 % lotion APPLY TO FOOT CALLUSES DAILY NEEDED Active clobetasoL (TEMOVATE) 0.05 % external solution APPLY TOPICALLY TO THE SCALP TWICE DAILY NEEDED FOR FLAKING OR ITCHING Active pimecrolimus (ELIDEL) 1 % cream APPLY TO RASH ON FACE AND EARS TWICE DAILY NEEDED FOR FLARES Active doxycycline 100 mg capsule Take 1 tablet/capsul e (100 mg total) by mouth 2 (two) times a day Active semaglutide (OZEMPIC) 1 mg/dose (4 mg/3 mL) pen injector injection Inject 1 mg under the skin every 7 days 9 mL 3 06/28/19 25 Active semaglutide (Ozempic) 0.25 mg or 0.5 mg (2 mg/3 mL) pen injector injectionIndicat ions:Type 2 diabetes mellitus with stage 3 chronic kidney disease, with long-term current use of insulin, unspecified whether stage 3a or 3b CKD (HCC) INJECT 0.5MG UNDER THE SKIN ONE TIME WEEKLY 9 mL 3 05/01/20 24 025 Discontinued Active Problems Problem Noted Date Diagnosed Date Cardiovascular stress test abnormal 02/24/2024 Benign paroxysmal positional vertigo of left ear 09/28/2023 Cervical myelopathy with cervical radiculopathy 06/30/2022 Cervical spondylosis with myelopathy 06/09/2022 Overview (06/09/2022): Added automatically from request for surgery [id number] Carotid stenosis, right 01/07/2022 Overview (01/07/2022): Added automatically from request for surgery [id number] Assessment & Plan (04/19/2023 1:00 PM JOB SERVICE SPECIALIST): Status post TCAR. Stent patent. Continue anti-platelet therapy follow-up 6 months. Assessment & Plan (03/12/2022 5:16 PM JOB SERVICE SPECIALIST): Impression: Patient is status post right TCAR. [...] (02/05/2020): Added automatically from request for surgery [id number] Hx of colonic polyps 10/10/2019 Overview (10/10/2019): Added automatically from request for surgery [id number] History of colon polyps 07/10/2019 Overview (07/10/2019): Added automatically from request for surgery [id number] Hypertension associated with diabetes 06/29/2019 Assessment & Plan (06/08/2024 2:36 PM JOB SERVICE SPECIALIST): Chronic problem, Controlled on metoprolol, Entresto, HCTZ, bumetanide, hydralazine, amlodipine. No changes. Assessment & Plan (04/19/2023 1:00 PM JOB SERVICE SPECIALIST): Hypertension chronic controlled. Continue current medical management Assessment & Plan (01/14/2022 9:31 AM CDT): Hypertension chronic and controlled. Continue current medical therapy. Chronic heart failure with preserved ejection fr action 06/29/2019 Morbid obesity with BMI of 40.0-44.9, [...] actual BMI) Coronary artery disease invo lving gambell coronary artery of gambell heart without angina pectoris 05/06/2015 Overview (08/07/2016): Coronary artery disease involving gambell coronary artery of gambell heart without angina pectoris Assessment & Plan (01/07/2022 3:00 PM CDT): Stable. Continue medical therapy. Mixed diabetic hyperlipidemi a associated with type 2 diabetes mellitus ([facility]) 05/06/2015 Overview (08/07/2016): Type 2 diabetes mellitus with complication Assessment & Plan (06/08/2024 2:36 PM JOB SERVICE SPECIALIST): Chronic problem. On statin therapy, no changes. Assessment & Plan (04/19/2023 1:00 PM JOB SERVICE SPECIALIST): Hyperlipidemia chronic and controlled. Continue current medical [...] complication Assessment & Plan (06/08/2024 2:37 PM JOB SERVICE SPECIALIST): Chronic problem, improving but not at goal. [...] Department Care Team Description 06/13/2024 Orders Only [facility] Diabetes and Endocrinology [facility] [place] [address] ProviderNelson MD 06/08/2024 1:18 PM JOB SERVICE SPECIALIST - 06/08/2024 11:59 PM JOB SERVICE SPECIALIST Hospital Encounter [facility] [id number] [place] [address] Type 2 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 disease, with long-term current use of insulin (HCC) Discharge Disposition: Discharge to home or self care 06/08/2024 1:15 PM JOB SERVICE SPECIALIST Office Visit [facility] [address] [facility] [address], [place] [address] Terra Joiner PA Type 2 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 disease, with long-term current use of insulin (HCC) (Primary Dx); Hypertension associated with diabetes (HCC); Mixed diabetic hyperlipidemia associated with type 2 diabetes mellitus (CMS/HCC) (HCC) 06/02/2024 1:00 PM JOB SERVICE SPECIALIST Office Visit [facility] Cardiology [address] [facility] [address] [place] [phone] Malu Solomon NP Edema, lower extremity (Primary Dx); Chronic combined systolic and diastolic CHF (congestive heart failure) (HCC); Stage 3b chronic kidney disease (HCC) 06/01/2024 Telephone [facility] Cardiology [address] [facility] [address] [place] [phone] Nabil Jacobs MD 05/12/2024 Documentation [facility] Cardiology [address] [facility] [address] [place] [phone] Shila Bowers MA 05/10/2024 8:30 AM JOB SERVICE SPECIALIST Office Visit [facility] Cardiology [address] [facility] [address] [place] [phone] Nabil Jacobs MD Coronary artery disease involving gambell coronary artery of gambell heart without angina pectoris (Primary Dx); S/P CABG x 2; Cardiomyopathy, ischemic; S/P angioplasty with stent; Chronic systolic congestive heart failure (HCC); S/P aortic valve replacement with bioprosthetic valve; Hypertension associated with diabetes ([facility]); Stage 3b chronic kidney disease (HCC); Morbid obesity with BMI of 40.0-44.9, adult ([facility]); MARY on CPAP 05/10/2024 Telephone [facility] Cardiology [address] [place] [address] [address] [place] [phone] Nabil Jacobs MD Medication Problem 04/17/2024 9:30 AM JOB SERVICE SPECIALIST - 04/17/2024 11:30 AM [facility] Surgery [facility] Cardiac Catheterization Lab [address] [place] [address] Nabil Jacobs MD PCI SHAYY MAJOR CORONARY [id number] - [id number] 04/17/2024 6:10 AM JOB SERVICE SPECIALIST - 04/17/2024 3:36 PM JOB SERVICE SPECIALIST Hospital Encounter [facility] Cardiac Catheterization Lab [address] [place] [address] Nabil Jacobs MD Coronary artery disease involving gambell coronary artery of gambell heart without angina pectoris Discharge Disposition: Discharge to home or self care 04/17/2024 Telephone [facility] Cardiology [address] [place] [address] [place] [phone] Nabil Jacobs MD 04/13/2024 Telephone [facility] Cardiology [address] [place] [address] [address] [place] [phone] Nabil Jacobs MD from Last 3 Months Immunizations Immunization Administration [...] eye blindness CHF (congestive heart failur e) (HCC) Pneumonia 10/21/2021 hospitalized at [facility] with PNA, JUANITA and CHF Cancer (HCC) h/o bladder canc er, surgical intervention only CKD (chronic kidney disease) , stage III (HCC) Numbness and tingling fingers an d hands, [...] Comments Cancer Brother Addi Cancer Father Maged Burrisio Early Father Maged Celeste Cancer COD Cancer Mother Cyndie Cicio Chronic Pain Mother Cyndie Cicio Diabetes Mother Cyndie Cicio Heart attack Mother Cyndie Cicio Heart disease Mother Cyndie Cicio Hypertension Mother Cyndie Cicio Chronic Pain Other Cancer Sister 1 Veda Diabetes Sister 1 Veda Lung cancer Sister 2 Cancer, lung; C ause of : Cancer, lung Relation Name Status Comments Brother Addi Father Maged Celeste (Age 59) Mother Cyndie Celeste Other Sister 1 Veda (Age 70) Sister [...] on file Legal Sex Male 1:58 AM JOB SERVICE SPECIALIST Gender Identity Not on file Sexual Orientation Not on file Obstetrics History Last Filed Vital Signs Vital Sign Reading Time Taken Comments Blood Pressure 136/62 06/08/2024 1:27 PM JOB SERVICE SPECIALIST Pulse 79 06/08/2024 1:27 PM JOB SERVICE SPECIALIST Temperature 36.7 C (98 F) 04/17/2024 7:04 AM JOB SERVICE SPECIALIST Respiratory Rate 18 06/08/2024 1:27 PM JOB SERVICE SPECIALIST Oxygen Saturation 95% 06/02/2024 1:00 PM JOB SERVICE SPECIALIST Inhaled Oxygen Concentration - - Weight 127.3 kg (280 lb 8.6 oz) 06/08/2024 1:27 PM JOB SERVICE SPECIALIST Height 172.7 cm (5' 8 ) 06/08/2024 1:27 PM JOB SERVICE SPECIALIST Body Mass Index 42.66 06/08/2024 1:27 PM JOB SERVICE SPECIALIST Plan of Treatment Health Maintenance Due Date [...] Chronic Care Management No change(04/14 11:08 AM JOB SERVICE SPECIALIST) No Pool Frey, RN Note: Problem: Chronic Pain Goals: 1. Minimize further functional decline 2. Maximize quality of life 3. Control pain Strategies: - Activity/exercise program recommendation - Conservative stepwise pain medicine strategy with multi-disciplinary approach - Recommend healthy lifestyle strategies and compensatory methods as needed Medical Devices Implanted Type Area Custom Car Builder Device Identifier Shelf Expiration Date Model / Serial / Lot Total Knee Left: Knee Medtronic Inc Resolute Sherine 3mm 2.1-2.7fr 12mm 140cm Rapid Exchange Radiopaque [id number] - [id number] Implanted:Qty: 1 on 09/03/2021 by Bindu Goins MD at [facility] Medtronic Inc 06/11/2024 [id number] / / Medtronic Inc Resolute Converse 3.5mm 2.1-2.7fr 15mm 140cm Rapid Exchange [id number] - [id number] Implanted:Qty: 1 on 09/03/2021 by iBndu Goins MD at [facility] Medtronic Inc 04/04/2024 [id number] / / Angio-Seal Vip 6fr Closere Device [id number] - [id number] Implanted:Qty: 1 on 09/03/2021 by Bindu Goins MD at [facility] TerAlive Juices Miya 06/02/2022 [id number] / / Vizalytics [employer] Inc Enroute Uber Flex 8mm .065in 40mm 57cm Delivery System Angle Tip [id number] - [id number] Implanted:Qty: 1 on 01/29/2022 by Neeraj La MD at [facility] Right: Carotid Drug Response Dx Medical Inc 08/30/2024 [id number]-0840- CS / / [id number] Matilde Biomet Inc 4.5mm 16mm Fix Screw Bone [id number] - [id number] Implanted:Qty: 3 on 06/30/2022 by Fredy Nguyen MD at [facility] N/A: Spine Cervical MATILDE BIOMET SPINE INC [id number] 6 / / Musculoskeletal Transplant [id number] Frozen Spine 7d Lordotic Trapezoid Spacer Allograft 250045 - [id number] - [id number] Implanted:Qty: 1 on 06/30/2022 by Fredy Nguyen MD at [facility] N/A: Spine Cervical Musculoskeletal Transplant [id number] 03/25/2025 890029 / [id number] / Musculoskeletal Transplant 12.4e75y9oy Frozen Spine 7d Lordotic Trapezoid Spacer Allograft 816925 - [id number] - [id number] Implanted:Qty: 1 on 06/30/2022 by Fredy Nguyen MD at [facility] N/A: Spine Cervical Musculoskeletal Transplant [id number] 01/03/2025 [id number] / [id number] / Musculoskeletal Transplant 12.5z35g7de Frozen Spine 7d Lordotic Trapezoid Spacer Allograft 904845 - [id number] - [id number] Implanted:Qty: 1 on 06/30/2022 by Fredy Nguyen MD at [facility] N/A: Spine Cervical Musculoskeletal Transplant [id number] 04/26/2026 [id number] / [id number] / Matilde [employer] Inc C-Ervin Maxan 51mm Level 3 Fix Spine Cervical Anterior Plate Bone 14-189580 - [id number] Implanted:Qty: 1 on 06/30/2022 by Fredy Nguyen MD at [facility] N/A: Spine Cervical MATILDE BIOMET SPINE INC 14-94650 1 / / Matilde Biomet Inc 4mm 16mm Fix Screw Bone 14-179130 - [id number] Implanted:Qty: 5 on 06/30/2022 by Fredy Nguyen MD at [facility] N/A: Spine Cervical MATILDE BIOMET SPINE INC [id number] 6 / / Access Closure Inc Device 10ml 5fr Closure Mynx Control 2 Mode Balloon Catheter [id number] - [id number] Implanted:Qty: 1 on 03/27/2024 by Nabil Jacobs MD at [facility] Access Closure Inc 01/18/2026 [id number] / / [id number] [facility] Hamiltontronic Card Vasc Surgery 4.0 X 18mm Converse [place] Rx Coronary Stent [id number] - [id number] Implanted:Qty: 1 on 04/17/2024 [facility] 12/26/2026 [id number] / / [id number] Access Closure Inc Mynx Control 6-7fr 2 Mode Balloon Catheter Sealant Lock Syringe [id number] - [id number] Implanted:Qty: 1 on 04/17/2024 by Nabil Jacobs MD at [facility] Access Closure Inc 01/05/2026 [id number] / / [id number] Procedures Procedure Name Priority Date/Time Associated Diagnosis Comments POCT GLUCOSE Routine 06/08/2024 1:18 PM JOB SERVICE SPECIALIST Type 2 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 disease, with long-term current use of insulin ([facility]) POCT HEMOGLOBIN A1C Routine 06/08/2024 1 :18 PM JOB SERVICE SPECIALIST Type 2 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 disease, with long-term current use of insulin ([facility]) ALBUMIN CREATININE RATIO, URINE Routine 06/08/2024 1:18 PM JOB SERVICE SPECIALIST Type 2 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 disease, with long-term current use of insulin ([facility]) POCT LIPID PANEL Routine 06/08/2024 1:18 AM JOB SERVICE SPECIALIST Type 2 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 disease, with long-term current use of insulin ([facility]) HM CREATININE Routine 05/31/2024 12:52 PM JOB SERVICE SPECIALIST COMPREHENSIVE METABOLIC PANEL Routine 05/31/2024 POCT GLUCOSE DEVICE Routine 04/17/2024 1 0:45 AM JOB SERVICE SPECIALIST PCI SHAYY STENT ADDTN'L COR BRANCH (+) [id number] Routine 04/17/2024 10:23 AM JOB SERVICE SPECIALIST Coronary artery disease involving gambell coronary artery of gambell heart without angina pectoris PERCUTANEOUS CORONARY LITHROTRIPSY W/ PCI (+) [id number] Routine 04/17/2024 10:23 AM JOB SERVICE SPECIALIST Coronary artery disease involving gambell coronary artery of gambell heart without angina pectoris CORONARY OCT, 1ST VESSEL Routine 04/17/2024 10:23 AM JOB SERVICE SPECIALIST Coronary artery disease involving gambell coronary artery of gambell heart without angina pectoris VASCULAR ACCESS US GUIDANCE Routine 04/17/2024 10:23 AM JOB SERVICE SPECIALIST Coronary artery disease involving gambell coronary artery of gambell heart without angina pectoris SHAYY MAJOR CORONARY Routine 04/17/2024 10 :23 AM JOB SERVICE SPECIALIST Coronary artery disease involving gambell coronary artery of gambell heart without angina pectoris MODERATE SEDATION FIRST 15MIN 5+ YEAR [id number] 04/17/2024 9:00 AM JOB SERVICE SPECIALIST Coronary artery disease involving gambell coronary artery of gambell heart without angina pectoris POCT GLUCOSE DEVICE Routine 04/17/2024 8 :27 AM JOB SERVICE SPECIALIST HEPATITIS C AB REFLEX RNA QUANT PCR Routine 06/14/2019 3:47 PM JOB SERVICE SPECIALIST COLONOSCOPY REPORT 05/18/2014 from Last 3 Months or Most Recently Relevant to Health Maintenance Results * (ABNORMAL) POCT hemoglobin A1c (06/08/2024 1:18 PM JOB SERVICE SPECIALIST) Hemoglobin A1C, POC 8.3 4.0 - 5.6 % Capillary blood 06/08/2024 1 :18 PM JOB SERVICE SPECIALIST Terra CRUZ POINT OF CARE TEST ORDE RABAMBER Final Result * (ABNORMAL) Albumin Creatinine Ratio, Urine (06/08/2024 1:18 PM JOB SERVICE SPECIALIST) Albumin Ur 68.0 mg/L Comment: Interpretive Data No reference range established. Current interpretive data was last revised 2018. Creatinine Ur 32.5 mg/dL JOSE MIGUEL Comment: Interpretive Data No reference range established. Current interpretive data was last revised 2018. Albumin Creatinine Ratio, Ur 209(H) 1 - 29 mg/g JOSE MIGUEL Urine 06/08/2024 1:18 PM JOB SERVICE SPECIALIST 06/08/2024 7:31 PM JOB SERVICE SPECIALIST Terra CRUZ LAB URINE ORDERABLES Fi nal Result JOSE MIGUEL BOWERS [address] [address] Mauro Department [place] [address] * (ABNORMAL) POCT glucose (06/08/2024 1:18 PM JOB SERVICE SPECIALIST) Glucose Blood, POC 204 mg/dL Comment:PPG 2.5 Hrs Blood 06/08/2024 1:1 8 PM JOB SERVICE SPECIALIST Result [facility] Terra CRUZ POINT OF CARE TEST ORDE RABLES Final Result * (ABNORMAL) POCT lipid panel (06/08/2024 1:18 AM JOB SERVICE SPECIALIST) Cholesterol, POC 154 mg/dL HDL, POC 25 mg/dL Triglycerides, POC 271 mg/dL LDL Cholesterol POC 75 mg/dL Chol/HDL Ratio, POC 6.2 Non-HDL Cholesterol, POC 129 mg/dL Cholesterol Total, POC 154 mg/dL Capillary blood 06/08/2024 1 :18 AM JOB SERVICE SPECIALIST Result [facility] Terra CRUZ POINT OF CARE TEST ORDE RABLES Final Result * (ABNORMAL) HM CREATININE (05/31/2024 12:52 PM JOB SERVICE SPECIALIST) Pathologist [facility] SCRIBED Creatinine 2.16(A) 0.7 - 1.3 mg/dl EXTERNAL LAB SCRIBED eGFR in NonAfrican Vietnamese 30 >59 - NA EXTERNAL LAB Blood 05/31/2024 12:5 2 PM JOB SERVICE SPECIALIST Historical Provider HEALTH MAINTENANCE Edited Result - Final EXTERNAL LAB * Comprehensive metabolic panel (05/31/2024) Blood Impressions EXTERNAL LAB - 05/31/2024 Lab ordered in error Historical Provider LAB BLOOD ORDERABLES Edit ed Result - Final EXTERNAL LAB * POCT glucose (04/17/2024 10:45 AM JOB SERVICE SPECIALIST) Glucose, POC 133 70 - 199 mg/dL Blood 04/17/2024 10:4 5 AM JOB SERVICE SPECIALIST 04/17/2024 10:45 AM JOB SERVICE SPECIALIST us Nabil Jacobs MD LAB POCT ORDERABLES - DEVICE Fin al Result JOSE MIGUEL BOWERS [address] [address] Department [place] [address] * SHAYY MAJOR CORONARY, VASCULAR ACCESS US GUIDANCE, CORONARY OCT, 1ST VESSEL, PERCUTANEOUS CORONARY LITHROTRIPSY W/ PCI (+) 23696, PCI SHAYY STENT ADDTN'L COR BRANCH (+) [id number] (04/17/2024 10:23 AM JOB SERVICE SPECIALIST) Anatomical Region Laterality Modality X-Ray Angiograph y Addenda Addendum by Nabil Jacobs MD on 04/17/2024 10:55 AM JOB SERVICE SPECIALIST CARDIAC CATHETERIZATION AND INTERVENTION REPORT DATE OF PROCEDURE: 04/17/24 INDICATION FOR PROCEDURE: Planned PCI ostial-proximal LAD BRIEF CLINICAL HISTORY: Gabriel Celeste is a 78 y.o. male with CAD, [...] from 02/15/2024 reportedly showed LVEF 33%; small, lmyl-in-xgcrqjog reversible defect in apical anterior and apical [...] a 4.0 x 18 mm Medtronic sherine [place] zotarolimus eluting stent with good angiographic and IVUS results (proximal optimization into left main) Moderate sedation-CPT code 51685 and beyond Deployment of Mynx vascular closure device MODERATE SEDATION: Midazolam 1 mg , Fentanyl 25 mcg, start time 0927 stop time 1023, total direct onvr-rl-ltop monitoring of conscious sedation 56 minutes (CPT 76828) TRAINED OBSERVER: Abisai Woods RN was trained observer for moderate sedation. ACCESS SITE: Right common femoral artery PROCEDURE: After obtaining informed consent, patient was brought to the dental laboratory worker and prepped and draped in the usual sterile manner. Time-out and immediate reassessment of the patient was performed. After local anesthesia with lidocaine, right common femoral artery access was taken with micropuncture needle under ultrasound guidance followed by insertion of a 6 Lithuanian sheath. Selective left coronary angiogram was performed using 6 Lithuanian JL4 guide catheter. Estimated blood loss was [...] artery ostium was selectively engaged using 6 Lithuanian JL4 guide catheter. Bivalirudin was used for procedural anticoagulation. Patient has been on dual antiplatelet therapy, today's dose of clopidogrel was given in the dental laboratory worker. 0.014 luge wire was advanced and the stenosis at the ostium of the LAD was crossed. The guidewire was advanced in the distal LAD. IVUS was performed using a WEISSENHAUS eye IVUS catheter. The reference diameter was [...] Next 4.0 x 18 mm Medtronic sherine [place] ZES was advanced to the target lesion [...] a 4.0 x 18 mm Medtronic sherine [place] ZES will good IVUS and angiographic results. PLAN/RECOMMENDATIONS: Continue dual antiplatelet therapy, statin; and guideline directed medical treatment for CHFrEF. Outpatient Cardiology follow-up. Voice recognition software was used to complete this document, therefore, hair 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 variances may occur. Nabil Jacobs MD, [facility] 04/17/24 Nabil Jacobs MD CV CARDIAC CATH PROCEDURES Edite d Result - Final * POCT glucose (04/17/2024 8:27 AM JOB SERVICE SPECIALIST) Glucose, POC 166 70 - 199 mg/dL Blood 04/17/2024 8:27 AM JOB SERVICE SPECIALIST 04/17/2024 8:27 AM JOB SERVICE SPECIALIST Nabil Jacobs MD LAB POCT ORDERABLES - DEVICE Fin al Result JOSE MIGUEL [id number] [address] Mauro Department [place] [address] * Hepatitis C Antibody Reflex Hepatitis C RNA Quantitative PCR Blood (06/14/2019 3:47 PM JOB SERVICE SPECIALIST) Hep C Ab Negative Negative JOSE MIGUEL BOWERS Blood specimen (specimen) 06/14/2019 3:47 PM JOB SERVICE SPECIALIST 06/14/2019 8:03 PM JOB SERVICE SPECIALIST Notinfile Unknown LAB MICROBIOLOGY - GENERAL ORD ERABLES Final Result JOSE MIGUEL BOWERS [address] [address] Francisco Department [place] [address] * COLONOSCOPY REPORT (05/18/2014) Anatomical Region Laterality Modality Other Narrative 05/18/2014 Ordered by an unspecified provider. Historical Provider GI PROCEDURE ORDERABLES F inal Result from Last 3 Months or Most Recently Relevant to Health Maintenance Insurance Re[employer]ise MEDICARE PPO Re[employer]ise MEDICARE PPO HUMANA CHOICE MEDICARE PPO HUMANA CHOICE MEDICARE PPO Advance Directives For more information, please contact: [phone] * Full Code (Latest Code Status on File) Date Activated Date Inactivated Comments 06/30/2022 6:44 PM 07/03/2022 5:32 PM * Full Code Date Activated Date Inactivated Comments 06/30/2022 6:39 PM 06/30/2022 6:44 PM * Full Code Date Activated Date Inactivated Comments 01/29/2022 2:14 PM 01/30/2022 6:06 PM * Full Code Date Activated Date Inactivated Comments 09/03/2021 12:10 PM 09/04/2021 7:37 PM Care Teams Cat Cracker Operator Relationship Specialty Start Date End Date Rafa Chavez DO [address] [place] [address] PCP - General Internal Medicine 06/01/24 Yfn Gill MD Referring Physician Nephrology 01/22/22 Aguila Chris MD Consulting Physician Cardiology 01/22/22 [place] [address] [address] Consulting Physician Endocrinology Diabetes & Metabolism 01/22/22 Neeraj La MD [address] [place] [address] Surgeon Vascular Surgery 01/30/22
--- OUTSIDE RECORDS SUMMARY | 2024-07-12 16:30 | XMS_ITS | Encounter Summary ---
Author Organization [facility] Address [address] [place] [address] Phone Care Team Providers Care Press Tender Name Role Phone Arnel Gonzalez MD Primary Care Provider [phone] Yfn Gill MD Unavailable [phone] Aguila Chris MD Unavailable [phone] Malcolm Castro MD Unavailable [phone] Neeraj La MD Unavailable [phone] Armand Howard RN Unavailable Unavaila August Hsu Primary Care Provider Miguel Torres DO Primary Care Provider [phone] Rafa Chavez DO Primary Care Provider [phone] Encounter Details Date Type Department Care Team [...] on file Legal Sex Male 1:58 AM [employer] Gender Identity Not on file Sexual Orientation [...] COVID: Suspected 05/05/2022 05/05/2022 05/05/2022 12:26 PM [employer] COVID: Suspected 05/05/2022 05/05/2022 05/05/2022 8:19 PM [employer] COVID: Suspected 03/19/2024 03/19/2024 03/19/2024 3:22 AM [employer] documented as of this encounter Care Teams Press Tender Relationship Specialty Start Date End Date Arnel Gonzalez MD [address] [address] PCP - General 07/19/13 07/05/23 August Triana PA [address] [place] [address] PCP - General Physician Sausage Machine Operator 07/06/23 01/16/24 Miguel Torres DO [address] [place] [address] PCP - General Internal Medicine 01/17/24 05/31/24 Rafa Chavez DO [address] [place] [address] PCP - General Internal Medicine 06/01/24 Yfn Gill MD [address] [facility] [address] [facility] [address] [place] [address] Referring Physician Nephrology 01/22/22 Aguila Chris MD [address] [facility] [address] [facility] [address] [place] [address] Consulting Physician Cardiology 01/22/22 [place] [address] [address] Consulting Physician Endocrinology Diabetes & Metabolism 01/22/22 Neeraj La MD [address] [facility] [address] [address] Surgeon Vascular Surgery 01/30/22 Armand Howard, RN Registered Nurse 06/30/22 07/02/22 documented as of this encounter
--- OUTSIDE RECORDS SUMMARY | 2024-07-12 16:30 | XMS_ITS | Clinical Summary ---
Author Organization [facility] Address [address] [place] [address] Phone Care Team Providers Care Oven Heater Name Role Phone Arnel Gonzalez DO Primary Care Provider Allergies Active Allergy Reactions [...] 300 MG tablet 04/14/2020 Active Droplet Pen [place] 31G X 5 MM misc 07/28/2020 Active [...] 12/22/2021 Active ergocalciferol (VITAMIN D2) 1.25 MG (10430 UT) capsule TAKE ONE CAPSULE BY MOUTH [...] diabetes mellitus with complication Coronary arteriosclerosis in [place] artery 01/29 Overview (03/06/2019): CAD (coronary artery disease) Coronary artery disease involving [place] coronary artery of [place] heart without angina pectoris Coronary atherosclerosis 01/29/2015 Overview (08/30/2020): CAD (coronary artery disease) Coronary artery disease involving [place] coronary artery of [place] heart without angina pectoris H/O: artificial heart [...] 03/03/2020, 02/01/2020, Additional history exists Care Teams Oven Heater Relationship Specialty Start Date End Date Arnel Gonzalez DO [address] [facility] [address] [place] [id number] PCP - General Internal Medicine 01/31/19
--- OUTSIDE RECORDS SUMMARY | 2024-07-12 16:30 | XMS_ITS | Clinical Summary ---
Author Organization [facility] Address [address] [facility] [address] Care Team Providers Care Checker Product Design Name Role Phone Arnel Gonzalez Primary Care Provider [phone] Source Comments [facility] Affiliates and Associated Physician Practices is amultiple site organization consisting of ambulatory clinics and hospital sitesin [place], [place], [place] and [place]. This disclosure is being madepursuant to the Care Everywhere program and may not contain all information available regarding this patient. Last updated 18.[facility] Allergies Active Allergy Reactions Criticality Noted [...] Comments Blood Pressure 136/70 05/05/2021 1:09 PM RUBBER MOLDER Pulse 76 05/05/2021 1:09 PM RUBBER [employer] Temperature - - Respiratory Rate 14 05/05/2021 1:09 PM RUBBER MOLDER Oxygen Saturation 98% 05/05/2021 1:09 PM RUBBER MOLDER Inhaled Oxygen Concentration - - Weight 121.1 kg (267 lb) 05/05/2021 1:09 PM RUBBER MOLDER Height 172.7 cm (5' 8 ) 05/05/2021 1:09 PM RUBBER M[employer] Body Mass Index 40.6 05/05/2021 1:09 PM RUBBER M[employer] Plan of Treatment Health Maintenance Due Date Last Done Comments DTAP/TDAP/TD VACCINES (1 - Tdap) 11/26/1964 PNEUMOCOCCAL VACCINE 50+ (1 of 1 - PCV) 1994 ZOSTER VACCINE (1 of 2) 1994 Respiratory Syncytial Virus (RSV) Vaccine Pt: or over 60 yrs (1 - 1-dose 75+ series) 11/26/2019 COVID-19 VACCINE ( - 2023-2 5 season) 2024 INFLUENZA VACCINE (#1) 2024 , 03/03/2020, 01/31/2019 DEPRESSION SCREENING 05/03/2024 HEPATITIS B VACCINE Aged Out No longe r eligible based on patient's age to complete this topic HIB VACCINE Aged Out No longer eligi ble based on patient's age to complete this topic HPV VACCINE Aged Out No longer eligi ble based on patient's age to complete this topic MENINGOCOCCAL (Group B) VACCINE SHARED DECISION-MAKING Aged Out No longer eligible based on patient's age to complete this topic MENINGOCOCCAL GROUPS A/C/Y/W VACCINE Aged Out No longer eligible b ased on patient's age to complete this topic Care Teams Checker Product Design Relationship Specialty Start Date End Date Arnel Gonzalez DO [address] [facility] [address] [place], [place] [id number] PCP - General 01/03/21
--- OUTSIDE RECORDS SUMMARY | 2024-07-12 16:30 | XMS_ITS | Referral Summary ---
Author Organization [facility] Address [address] [place] [address] Care Team Providers Care Student Officer Name Role Phone Yfn Gill MD Unavailable [phone] Aguila Chris MD Unavailable [phone] Malcolm Castro MD Unavailable [phone] Neeraj La MD Unavailable [phone] Rafa Chavez DO Primary Care Provider [phone] Encounters Date Type Department Care Team Description 06/13/2024 Orders Only [facility] Medical Group Diabetes and Endocrinology [facility] [place] [address] ProviderNelson MD 06/08/2024 1:18 PM PUMP SERVICE SUPERVISOR - 06/08/2024 11:59 PM PUMP SERVICE SUPERVISOR Hospital Encounter [facility] [id number] [place] [address] Type 2 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 disease, with long-term current use of insulin (HCC) Discharge Disposition: Discharge to home or self care 06/08/2024 1:15 PM PUMP SERVICE SUPERVISOR Office Visit [facility] [address] [address] Terra Joiner PA Type 2 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 disease, with long-term current use of insulin (HCC) (Primary Dx); Hypertension associated with diabetes (HCC); Mixed diabetic hyperlipidemia associated with type 2 diabetes mellitus (CMS/HCC) (HCC) 06/02/2024 1:00 PM PUMP SERVICE SUPERVISOR Office Visit [facility] Cardiology [address] [place] [address] [place] [phone] Malu Solomon NP Edema, lower extremity (Primary Dx); Chronic combined systolic and diastolic CHF (congestive heart failure) ([facility]); Stage 3b chronic kidney disease ([facility]) 06/01/2024 Telephone [place] [address] [place] [phone] Nabil Jacobs MD 05/12/2024 Documentation [place] [address] [place] [phone] Shila Bowers MA 05/10/2024 Telephone [place] [address] [place] [phone] Nabil Jacobs MD Medication Problem 05/10/2024 8:30 AM PUMP SERVICE SUPERVISOR Office Visit [place] [address] [place] [phone] Nabil Jacobs MD 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 (Primary Dx); S/P CABG x 2; Cardiomyopathy, ischemic; S/P angioplasty with stent; Chronic systolic congestive heart failure (HCC); S/P aortic valve replacement with bioprosthetic valve; Hypertension associated with diabetes ([facility]); Stage 3b chronic kidney disease ([facility]); Morbid obesity with BMI of 40.0-44.9, adult ([facility]); MARY on CPAP 04/17/2024 Telephone [place] [address] [place] [phone] Nabil Jacobs MD 04/17/2024 9:30 AM PUMP SERVICE SUPERVISOR - 04/17/2024 11:30 AM [facility] Surgery [facility] Cardiac Catheterization Lab [address] [place] [address] Nabil Jacobs MD PCI SHAYY MAJOR CORONARY [id number] - [id number] 04/17/2024 6:10 AM PUMP SERVICE SUPERVISOR - 04/17/2024 3:36 PM PUMP SERVICE SUPERVISOR Hospital Encounter [facility] Cardiac Catheterization Lab [address] [place] [address] Nabil Jacobs MD 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 Discharge Disposition: Discharge to home or self care 04/13/2024 Telephone [facility] Medical Group Cardiology [address] [place] [address] Nabil Jacobs MD from Last 3 Months Allergies Active Allergy [...] 1 tablet (300 mg total) by mouth research & insights executive before breakfast 04/14/20 20 Active alpha lipoic [...] (06/09/2022): Added automatically from request for surgery [id number] Carotid stenosis, right 01/07/2022 Overview (01/07/2022): Added automatically from request for surgery [id number] Assessment & Plan (04/19/2023 1:00 PM PUMP SERVICE SUPERVISOR): Status post TCAR. Stent patent. Continue anti-platelet therapy follow-up 6 months. Assessment & Plan (03/12/2022 5:16 PM PUMP SERVICE SUPERVISOR): Impression: Patient is status post right [...] (02/05/2020): Added automatically from request for surgery [id number] Hx of colonic polyps 10/10/2019 Overview (10/10/2019): Added automatically from request for surgery [id number] History of colon polyps 07/10/2019 Overview (07/10/2019): Added automatically from request for surgery [id number] Hypertension associated with diabetes 06/29/2019 Assessment & Plan (06/08/2024 2:36 PM PUMP SERVICE SUPERVISOR): Chronic problem, Controlled on metoprolol, Entresto, HCTZ, bumetanide, hydralazine, amlodipine. No changes. Assessment & Plan (04/19/2023 1:00 PM PUMP SERVICE SUPERVISOR): Hypertension chronic controlled. 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 Continue medical therapy. Mixed diabetic hyperlipidemi a associated with type 2 diabetes mellitus ([facility]) 05/06/2015 Overview (08/07/2016): Type 2 diabetes mellitus with complication Assessment & Plan (06/08/2024 2:36 PM PUMP SERVICE SUPERVISOR): Chronic problem. On statin therapy, no changes. Assessment & Plan (04/19/2023 1:00 PM PUMP SERVICE SUPERVISOR): Hyperlipidemia chronic and controlled. Continue current [...] complication Assessment & Plan (06/08/2024 2:37 PM PUMP SERVICE SUPERVISOR): Chronic problem, improving but not at [...] on file Legal Sex Male 1:58 AM PUMP SERVICE SUPERVISOR Gender Identity Not on file Sexual Orientation Not on file Last Filed Vital Signs Vital Sign Reading Time Taken Comments Blood Pressure 136/62 06/08/2024 1:27 PM PUMP SERVICE SUPERVISOR Pulse 79 06/08/2024 1:27 PM PUMP SERVICE SUPERVISOR Temperature 36.7 C (98 F) 04/17/2024 7:04 AM PUMP SERVICE SUPERVISOR Respiratory Rate 18 06/08/2024 1:27 PM PUMP SERVICE SUPERVISOR Oxygen Saturation 95% 06/02/2024 1:00 PM PUMP SERVICE SUPERVISOR Inhaled Oxygen Concentration - - Weight 127.3 kg (280 lb 8.6 oz) 06/08/2024 1:27 PM PUMP SERVICE SUPERVISOR Height 172.7 cm (5' 8 ) 06/08/2024 1:27 PM PUMP SERVICE SUPERVISOR Body Mass Index 42.66 06/08/2024 1:27 PM PUMP SERVICE SUPERVISOR Plan of Treatment Not on file Goals Goal Patient Goal Type Associated Problems Recent Progress Patient-Stated? Author CCM Chronic Pain Care Plan Chronic Care Management No change(04/14 11:08 AM PUMP SERVICE SUPERVISOR) No Pool Frey RN Note: Problem: Chronic Pain Goals: 1. Minimize further functional decline 2. Maximize quality of life 3. Control pain Strategies: - Activity/exercise program recommendation - Conservative stepwise pain medicine strategy with multi-disciplinary approach - Recommend healthy lifestyle strategies and compensatory methods as needed Medical Devices Implanted Type Area Portable Machine Sander Device Identifier Shelf Expiration Date Model / Serial / Lot Total Knee Left: Knee Medtronic Inc Resolute Sherine 3mm 2.1-2.7fr 12mm 140cm Rapid Exchange Radiopaque [id number] - [id number] Implanted:Qty: 1 on 09/03/2021 by Bindu Goins MD at [facility] Medtronic Inc 06/11/2024 [id number] / / Medtronic Inc Resolute Frederic 3.5mm 2.1-2.7fr 15mm 140cm Rapid Exchange [id number] - [id number] Implanted:Qty: 1 on 09/03/2021 by Bindu Goins MD at [facility] Medtronic Inc 04/04/2024 [id number] / / Angio-Seal Vip 6fr Closere Device [id number] - [id number] Implanted:Qty: 1 on 09/03/2021 by Bindu Goins MD at [facility] TerJdguanjia Miya 06/02/2022 [id number] / / State [facility] Enroute Uber Flex 8mm .065in 40mm 57cm Delivery System Angle Tip [id number] - [id number] Implanted:Qty: 1 on 01/29/2022 by Neeraj La MD at [facility] Right: Carotid State [employer] Inc 08/30/2024 [id number] / / [id number] Matilde Biomet Inc 4.5mm 16mm Fix Screw Bone [id number] - [id number] Implanted:Qty: 3 on 06/30/2022 by Fredy Nguyen MD at [facility] N/A: Spine Cervical MATILDE BIOMET SPINE INC [id number] / / Musculoskeletal Transplant 12.3j57q0qc Frozen Spine 7d Lordotic Trapezoid Spacer Allograft 898657 - [id number] - [id number] Implanted:Qty: 1 on 06/30/2022 by Fredy Nguyen MD at [facility]: Spine Cervical Musculoskeletal Transplant [id number] 03/25/2025 [id number] / [id number] / Musculoskeletal Transplant 12.8g18w0uo Frozen Spine 7d Lordotic Trapezoid Spacer Allograft 386828 - [id number] - [id number] Implanted:Qty: 1 on 06/30/2022 by Fredy Nguyen MD at [facility] N/A: Spine Cervical Musculoskeletal Transplant [id number] 01/03/2025 [id number] / [id number] / Musculoskeletal Transplant 12.3r30n0kt Frozen Spine 7d Lordotic Trapezoid Spacer Allograft 627393 - [id number] - [id number] Implanted:Qty: 1 on 06/30/2022 by Fredy Nguyen MD at [facility] N/A: Spine Cervical Musculoskeletal Transplant [id number] 04/26/2026 [id number] / [id number] / Matilde [employer] Inc C-Ervin Maxan 51mm Level 3 Fix Spine Cervical Anterior Plate Bone 14-383390 - [id number] Implanted:Qty: 1 on 06/30/2022 by Fredy Nguyen MD at [facility] N/A: Spine Cervical MATILDE [employer] SP[employer] INC [id number] 1 / / Matilde [employer] Inc 4mm 16mm Fix Screw Bone 14-453026 - [id number] Implanted:Qty: 5 on 06/30/2022 by Fredy Nguyen MD at [facility] N/A: Spine Cervical MATILDE [employer] SP[employer] INC [id number] 6 / / Access Closure Inc Device 10ml 5fr Closure Mynx Control 2 Mode Balloon Catheter [id number] - [id number] Implanted:Qty: 1 on 03/27/2024 by Nabil Jacobs MD at [facility] Access Closure Inc 01/18/2026 [id number] / / [id number] Medtronic Card Vasc Surgery 4.0 X 18mm Sherine Bessemer Rx Coronary Stent [id number] - [id number] Implanted:Qty: 1 on 04/17/2024 by Nabil Jacobs MD at [facility] Medtronic Card Vasc Surgery 12/26/2026 [id number] / / [id number] Access Closure Inc Mynx Control 6-7fr 2 Mode Balloon Catheter Sealant Lock Syringe [id number] - [id number] Implanted:Qty: 1 on 04/17/2024 by Nabil Jacobs MD at [facility] Access Closure Inc 01/05/2026 [id number] / / [id number] Procedures Procedure Name Priority Date/Time Associated Diagnosis Comments POCT GLUCOSE Routine 06/08/2024 1:18 PM PUMP SERVICE SUPERVISOR Type 2 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 disease, with long-term current use of insulin ([facility]) POCT HEMOGLOBIN A1C Routine 06/08/2024 1 :18 PM PUMP SERVICE SUPERVISOR Type 2 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 disease, with long-term current use of insulin ([facility]) ALBUMIN CREATININE RATIO, URINE Routine 06/08/2024 1:18 PM PUMP SERVICE SUPERVISOR Type 2 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 disease, with long-term current use of insulin ([facility]) POCT LIPID PANEL Routine 06/08/2024 1:18 AM PUMP SERVICE SUPERVISOR Type 2 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 disease, with long-term current use of insulin ([facility]) HM CREATININE Routine 05/31/2024 12:52 PM PUMP SERVICE SUPERVISOR COMPREHENSIVE METABOLIC PANEL Routine 05/31/2024 POCT GLUCOSE DEVICE Routine 04/17/2024 1 0:45 AM PUMP SERVICE SUPERVISOR PCI SHAYY STENT ADDTN'L COR BRANCH (+) [id number] Routine 04/17/2024 10:23 AM PUMP SERVICE SUPERVISOR 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 PERCUTANEOUS CORONARY LITHROTRIPSY W/ PCI (+) 13223 Routine 04/17/2024 10:23 AM PUMP SERVICE SUPERVISOR 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 CORONARY OCT, 1ST VESSEL Routine 04/17/2024 10:23 AM PUMP SERVICE SUPERVISOR 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 VASCULAR ACCESS US GUIDANCE Routine 04/17/2024 10:23 AM PUMP SERVICE SUPERVISOR 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 SHAYY MAJOR CORONARY Routine 04/17/2024 10 :23 AM PUMP SERVICE SUPERVISOR 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 MODERATE SEDATION FIRST 15MIN 5+ YEAR [address] 04/17/2024 9:00 AM PUMP SERVICE SUPERVISOR 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 POCT GLUCOSE DEVICE Routine 04/17/2024 8 :27 AM PUMP SERVICE SUPERVISOR HEPATITIS C AB REFLEX RNA QUANT PCR Routine 06/14/2019 3:47 PM PUMP SERVICE SUPERVISOR COLONOSCOPY REPORT 05/18/2014 from Last 3 Months or Most Recently Relevant to Health Maintenance Results * (ABNORMAL) POCT hemoglobin A1c (06/08/2024 1:18 PM PUMP SERVICE SUPERVISOR) Hemoglobin A1C, POC 8.3 4.0 - 5.6 % Capillary blood 06/08/2024 1 :18 PM PUMP SERVICE SUPERVISOR Terra CRUZ POINT OF CARE TEST ENRIQUE CHINO Final Result * (ABNORMAL) Albumin Creatinine Ratio, Urine (06/08/2024 1:18 PM PUMP SERVICE SUPERVISOR) [facility] Albumin Ur 68.0 mg/L Comment: Interpretive Data No reference range established. Current interpretive data was last revised 2018. Creatinine Ur 32.5 mg/dL [facility] Comment: Interpretive Data No reference range established. Current interpretive data was last revised 2018. Albumin Creatinine Ratio, Ur 209(H) 1 - 29 mg/g [facility] Urine 06/08/2024 1:18 PM PUMP SERVICE SUPERVISOR 06/08/2024 7:31 PM PUMP SERVICE SUPERVISOR Result Milady CRUZ LAB URINE ORDERABLES Fi nal Result [facility] [address] [address] Department [place] [address] * (ABNORMAL) POCT glucose (06/08/2024 1:18 PM PUMP SERVICE SUPERVISOR) [facility] Glucose Blood, POC 204 mg/dL Comment:PPG 2.5 Hrs Blood 06/08/2024 1:18 PM PUMP SERVICE SUPERVISOR Result [facility] Terra CRUZ POINT OF CARE TEST ORDE RABLES Final Result * (ABNORMAL) POCT lipid panel (06/08/2024 1:18 AM PUMP SERVICE SUPERVISOR) Pathologist [facility] Cholesterol, POC 154 mg/dL HDL, POC 25 mg/dL Triglycerides, POC 271 mg/dL LDL Cholesterol POC 75 mg/dL Chol/HDL Ratio, POC 6.2 Non-HDL Cholesterol, POC 129 mg/dL Cholesterol Total, POC 154 mg/dL Capillary blood 06/08/2024 1 :18 AM PUMP SERVICE SUPERVISOR Result [facility] Terra CRUZ POINT OF CARE TEST ORDE RABLES Final Result * (ABNORMAL) HM CREATININE (05/31/2024 12:52 PM PUMP SERVICE SUPERVISOR) [facility] SCRIBED Creatinine 2.16(A) 0.7 - 1.3 mg/dl EXTERNAL LAB SCRIBED eGFR in NonAfrican Swedish 30 >59 - NA EXTERNAL LAB Blood 05/31/2024 12:5 2 PM PUMP SERVICE SUPERVISOR Historical Provider HEALTH MAINTENANCE Edited Result - Final Performing Organization Address City/[facility]/ZIP Co de Phone Number EXTERNAL LAB * Comprehensive metabolic panel (05/31/2024) Blood Impressions EXTERNAL LAB - 05/31/2024 Lab ordered in error Historical Provider LAB BLOOD ORDERABLES Edit ed Result - Final Performing Organization Address City/[facility]/ZIP Co de Phone Number EXTERNAL LAB * POCT glucose (04/17/2024 10:45 AM PUMP SERVICE SUPERVISOR) Glucose, POC 133 70 - 199 mg/dL Blood 04/17/2024 10:4 5 AM PUMP SERVICE SUPERVISOR 04/17/2024 10:45 AM PUMP SERVICE SUPERVISOR Nabil Jacobs MD LAB POCT ORDERABLES - DEVICE Fin al Result Performing Organization Address [facility] de Phone Number JOSE MIGUEL [address] [address] Department [place] [address] * SHAYY MAJOR CORONARY, VASCULAR ACCESS US GUIDANCE, CORONARY OCT, 1ST VESSEL, PERCUTANEOUS CORONARY LITHROTRIPSY W/ PCI (+) [id number], PCI SHAYY STENT ADDTN'L COR BRANCH (+) [id number] (04/17/2024 10:23 AM PUMP SERVICE SUPERVISOR) Anatomical Region Laterality Modality X-Ray Angiograph y Addenda Addendum by Nabil Jacobs MD on 04/17/2024 10:55 AM PUMP SERVICE SUPERVISOR CARDIAC CATHETERIZATION AND INTERVENTION REPORT DATE [...] from 02/15/2024 reportedly showed LVEF 33%; small, jibj-yw-jxzgjisr reversible defect in apical anterior and apical [...] groin hematoma, retroperitoneal bleed, vessel perforation; periprocedural SD, cardiac arrhythmias, stroke, contrast induced nephropathy, and [...] a 4.0 x 18 mm Medtronic sherine Bessemer zotarolimus eluting stent with good angiographic and IVUS results (proximal optimization into left main) Moderate sedation-CPT code 43016 and beyond Deployment of Mynx vascular closure device MODERATE SEDATION: Midazolam 1 mg , Fentanyl 25 mcg, start time 0927 stop time 1023, total direct mdio-cd-ajds monitoring of conscious sedation 56 minutes (CPT 47186) TRAINED OBSERVER: Abisai Woods RN was trained observer for moderate sedation. ACCESS SITE: Right common femoral artery PROCEDURE: After obtaining informed consent, patient was brought to the laborer tin can and prepped and draped in the usual sterile manner. Time-out and immediate reassessment of the patient was performed. After local anesthesia with lidocaine, right common femoral artery access was taken with micropuncture needle under ultrasound guidance followed by insertion of a 6 Kuwaiti sheath. Selective left coronary angiogram was performed using 6 Kuwaiti JL4 guide catheter. Estimated blood loss was [...] artery ostium was selectively engaged using 6 Kuwaiti JL4 guide catheter. Bivalirudin was used for procedural anticoagulation. Patient has been on dual antiplatelet therapy, today's dose of clopidogrel was given in the laborer tin can. 0.014 luge wire was advanced and the stenosis at the ostium of the LAD was crossed. The guidewire was advanced in the distal LAD. IVUS was performed using a Prescient eye IVUS catheter. The reference diameter was [...] Next 4.0 x 18 mm Medtronic sherine Bessemer ZES was advanced to the target lesion [...] a 4.0 x 18 mm Medtronic sherine Bessemer ZES will good IVUS and angiographic results. PLAN/RECOMMENDATIONS: Continue dual antiplatelet therapy, statin; and guideline directed medical treatment for CHFrEF. Outpatient Cardiology follow-up. Voice recognition software was used to complete this document, therefore, early childhood educator aide variances may occur. Nabil Jacobs MD, [facility] 04/17/24 Nabil Jacobs MD CV CARDIAC CATH PROCEDURES Edite d Result - Final * POCT glucose (04/17/2024 8:27 AM PUMP SERVICE SUPERVISOR) Glucose, POC 166 70 - 199 mg/dL Blood 04/17/2024 8:27 AM PUMP SERVICE SUPERVISOR 04/17/2024 8:27 AM PUMP SERVICE SUPERVISOR Nabil Jacobs MD LAB POCT ORDERABLES - DEVICE Fin al Result JOSE MIGUEL BOWERS [address] [address] [place] [address] * Hepatitis C Antibody Reflex Hepatitis C RNA Quantitative PCR Blood (06/14/2019 3:47 PM PUMP SERVICE SUPERVISOR) Pathologist [facility] Hep C Ab Negative Negative [facility] Blood specimen (specimen) 06/14/2019 3:47 PM PUMP SERVICE SUPERVISOR 06/14/2019 8:03 PM PUMP SERVICE SUPERVISOR Notinfile Unknown LAB MICROBIOLOGY - GENERAL ORD ERABLES Final Result Performing Organization Address [facility] Co de Phone Number JOSE MIGUEL BOW[place] [address] [address] [place] [address] * COLONOSCOPY REPORT (05/18/2014) Anatomical Region Laterality Modality Other Narrative 05/18/2014 Ordered by an unspecified provider. Historical Provider GI PROCEDURE ORDERABLES F inal Result from Last 3 Months or Most Recently Relevant to Health Maintenance Insurance [employer]ICE MEDICARE PPO [employer] CHOICE MEDICARE PPO HU[employer]ICE MEDICARE PPO Advance Directives For more information, please contact: [phone] * Full Code (Latest Code Status on File) Date Activated Date Inactivated Comments 06/30/2022 6:44 PM 07/03/2022 5:32 PM * Full Code Date Activated Date Inactivated Comments 06/30/2022 6:39 PM 06/30/2022 6:44 PM * Full Code Date Activated Date Inactivated Comments 01/29/2022 2:14 PM 01/30/2022 6:06 PM * Full Code Date Activated Date Inactivated Comments 09/03/2021 12:10 PM 09/04/2021 7:37 PM Care Teams Student Officer Relationship Specialty Start Date End Date Rafa Chavez DO [address] [facility] [place] [address] PCP - General Internal Medicine 06/01/24 Yfn Gill MD Referring Physician Nephrology 01/22/22 Aguila Chris MD Consulting Physician Cardiology 01/22/22 [place] [address] [address] Consulting Physician Endocrinology Diabetes & Metabolism 01/22/22 Neeraj La MD [address] [facility] [place] [address] Surgeon Vascular Surgery 01/30/22
--- OUTSIDE RECORDS SUMMARY | 2024-07-12 16:30 | XMS_ITS | Continuity of Care Document ---
Author Organization [facility] Address [address] [facility] [address] [place] [address] Phone Care Team Providers Care Exchange Administrator Name Role Phone Zaheer oTm Unavailable Unavailable Procedures Procedure Date Visual Field Examination(s) Eye Exam & Treatment Refraction Progressive Lens, Plastic Frames Deluxe Tint Photochromatic, Plastic Tax - Medical Visual Field Examination(s) Eye Exam & Treatment Refraction Eye Exam & Treatment Advance Directives Directive Yes / No Effective Date File Name No Information Encounters Encounter Description Practice Location Reason(s) For Visit Diagnoses Date Provider Providers Copied on Encounter [facility], [address], [place], [place], [id number], [place] tel:[phone] [facility] No Information 0 Vaishali Schwab. [facility] [address], [address], [place]. tel:[phone] Referring Provider: Zaheer evans, [address] [address], [place], [address]. tel:[phone] [facility], [address], [place], [place], [id number], [place] tel:[phone] [facility] [place] No Information 3-201 0 Krishnasamy Zaheer. [address] [place], [place] [address]ate [place] [address], [place], [place], [facility], [place]. tel:[phone] [facility], [address], [place], [place], [id number], [place] tel:[phone] [facility] No Information 200 [address] [employer]. [address] [facility], [address], [place], [place], [id number], [place]. tel:[phone] Referring Provider: Zaheer evans, [address] [place], [place] [address]ate [facility] [address], [place], [place], [facility]. tel:[phone] sulting Provider: Leif Pineda, [address] [place] [address], [place], [facility]. tel:[phone] [facility], [address] [place] [address] [address], [place], [place], [id number], [place] tel:[phone] [facility] No Information 9 Krishnasamy Zaheer. [address] [place], [place] [address]ate [facility] [address], [place], [facility], [place]. tel:[phone] Referring Provider: Zaheer evans, [address] [place], [place] [address]ate [facility] [address], [place], [facility]. tel:[phone] [facility], [address] [place] [address] [address], [place], [place], [id number], [place] tel:[phone] [facility] [place] No Information 200 9 Krishnasamy Zaheer. [address] [place], [place] [address]ate [facility], [place], [facility], [place]. tel:[phone] [facility], [address], [place], [place], [id number], [place] tel:[phone] [facility] No Information 200 7 Juan Daniel Rios. [address] [facility], [address], [place], [place], [id number], [place]. tel:[phone] Family History Family Member Type Diagnosis Age At Onset No Information Payers Payer name Insurance type Covered republican ID Authoriza tion(s) [place] [id number] Social History Type Description Quantity Date Captured [...]
--- OUTSIDE RECORDS SUMMARY | 2024-07-12 16:30 | XMS_ITS | Patient Health Summary ---
Author Organization [facility] Address [address] [facility] [place] [address] Care Team Providers Care Circular Distributor Name Role Phone SabrinaArnel barbour Devan ROBISON Primary Care Provider [phone] Note from [facility],non-owned Affiliates and Associated Physician Practices is amultiple site organization consisting of ambulatory clinics and hospital sitesin [place], [place], [place] and [place]. This disclosure is being madepursuant to the Care Everywhere program and may not contain all information available regarding this patient. Last updated 18.[facility] Allergies * Codeine(Itching) -Medium Criticality [...] Comments Blood Pressure 136/70 05/05/2021 1:09 PM FINISHING TRIMMER Pulse 76 05/05/2021 1:09 PM FINISHING TRIMMER Temperature - - Respiratory Rate 14 05/05/2021 1:09 PM FINISHING TRIMMER Oxygen Saturation 98% 05/05/2021 1:09 PM FINISHING TRIMMER Inhaled Oxygen Concentration - - Weight 121.1 kg (267 lb) 05/05/2021 1:09 PM FINISHING TRIMMER Height 172.7 cm (5' 8 ) 05/05/2021 1:09 PM FINISHING TRIMMER Body Mass Index 40.6 05/05/2021 1:09 PM FINISHING TRIMMER Procedures * NERVE CONDUCTION TEST(Performed 05/05/2021) Performed for Cubital tunnel syndrome of both upper extremities Results * NERVE CONDUCTION TEST (05/05/2021 5:28 PM FINISHING TRIMMER) Narrative Kenny Bishop MD - 05/05/2021 5:28 PM FINISHING TRIMMER Kenny Bishop MD 05/06/2021 5:31 PM [facility] [address] [facility] [address] [address] Test Date: 05/05/2021 Patient: Gabriel Celeste DOB: 1945 Physician: Kenny Bishop MD Sex: Male Height: 5' 8 Ref Phys: ID#: [id number] Weight: 276 lbs. Patient Complaints: Patient is [...] Bishop MD NEUROLOGY ORDERABLE S Care Teams Circular Distributor Relationship Specialty Start Date End Date Arnel Gonzalez DO [address] [facility] [address] [place] [address] PCP - General 01/03/21
--- OUTSIDE RECORDS SUMMARY | 2024-07-12 16:30 | XMS_ITS | Referral Summary ---
Author Organization [facility] Address [address] [facility] [place] [address] Care Team Providers Care Scalper Operator Name Role Phone Arnel Gonzalez Primary Care Provider [phone] Source Comments [facility],non-[facility] Affiliates and Associated Physician Practices is amultiple site organization consisting of ambulatory clinics and hospital sitesin [place], [place], [place] and [place]. This disclosure is being madepursuant to the Care Everywhere program and may not contain all information available regarding this patient. Last updated 18.[facility] [employer] Allergies Active Allergy Reactions Criticality Noted Date [...] Comments Blood Pressure 136/70 05/05/2021 1:09 PM SUPERINTENDENT SYSTEM OPERATION Pulse 76 05/05/2021 1:09 PM SUPERINTENDENT SYSTEM OPERATION Temperature - - Respiratory Rate 14 05/05/2021 1:09 PM SUPERINTENDENT SYSTEM OPERATION Oxygen Saturation 98% 05/05/2021 1:09 PM SUPERINTENDENT SYSTEM OPERATION Inhaled Oxygen Concentration - - Weight 121.1 kg (267 lb) 05/05/2021 1:09 PM SUPERINTENDENT SYSTEM OPERATION Height 172.7 cm (5' 8 ) 05/05/2021 1:09 PM SUPERINTENDENT SYSTEM OPERATION Body Mass Index 40.6 05/05/2021 1:09 PM SUPERINTENDENT SYSTEM OPERATION Plan of Treatment Not on file Care Teams Scalper Operator Relationship Specialty Start Date End Date Arnel Gonzalez DO [address] [facility] [address] [place], [place] [id number] PCP - General 01/03/21
[2024-07-12 18:58] LABS: Add Urine Microscopic? YES; Appearance Urine Turbid (Clear); Bacteria Urine 4+ /hpf; Bilirubin Urine Negative (Negative); Blood Urine Trace (Negative); Color Urine Yellow (Yellow); Glucose Urine UA 3+ mg/dL (Negative); Ketones Urine Negative (Negative); Leukocyte Esterase Ur 3+ LEU/UL (Negative); Nitrate Urine Negative (Negative); Protein Urine 1+ mg/dL (Negative); RBC Urine 0-2 /hpf (0-2); Specific Grav Ur 1.012 (1.001-1.035); Squamous Epithelial Cell Urine Occasional /hpf (Few); Urobilinogen Urine 0.2 mg/dL (<2.0); WBC Urine >100 /hpf (0-3)
== END 2024-07-12 14:40 | disposition home or self-care (01) ==
LOC: ANHGOSHLAB 14:40
PROVIDERS: PCP Internal Medicine; Visit Provider Clinical Nurse Specialist
DX: N39.0 Urinary tract infection, site not specified (principal); R31.9 Hematuria, unspecified; R30.0 Dysuria
CPT/HCPCS: 81001; 87077; 87086; 87186

== ENCOUNTER 2024-07-21 12:55 | Outpatient (CLI) | payer MEDICARE, SELFPAY ==
[2024-07-21 13:30] LABS: Basophils Absolute Auto 0.1 K/mm3 (0.0-0.1); Basophils Percent Auto 0.6 % (0.2-1.2); Eosinophils Absolute Auto 0.5 K/mm3 (0-0.3); Eosinophils Percent Auto 5.3 % (0-4.4); Hematocrit 39.9 % (42.0-52.0); Hemoglobin 13.1 g/dL (14.0-18.0); Immature Granulocyte Absolute 0.04 K/mm3 (0.00-0.031); Immature Granulocyte Percent A 0.5 % (0-0.5); Lymphocytes Absolute Auto 2.66 K/mm3 (0.9-3.2); Lymphocytes Percent Auto 31.5 % (18.3-44.2); Mean Corpuscular HGB Conc 32.8 g/dl (32-36); Mean Corpuscular Hemoglobin 28.9 pg (26-34); Mean Corpuscular Volume 87.9 fl (80-100); Mean Platelet Volume 9.4 fl (7.4-10.4); Monocytes Absolute Auto 0.6 K/mm3 (0.1-0.6); Monocytes Percent Auto 7.3 % (2.6-8.5); Neutrophils Absolute Auto 4.6 K/mm3 (1.3-6.7); Neutrophils Percent Auto 54.8 % (45.5-73.1); Platelet Count Result 208 k/mm3 (150-375); Red Blood Count 4.54 M/mm3 (4.6-6.20); Red Cell Distribution Width 14.1 % (11.5-14.5); White Blood Count 8.4 K/mm3 (4.5-10.0)
--- OUTSIDE RECORDS SUMMARY | 2024-07-21 13:32 | XMS_ITS | Encounter Summary ---
Author Organization [facility] Address [address] [place] [address] Phone Care Team Providers Care Dispatcher Radio Name Role Phone rAnel Gonzalez MD Primary Care Provider [phone] Yfn Gill MD Unavailable [phone] Aguila Chris MD Unavailable [phone] Malcolm Castro MD Unavailable [phone] Neeraj La MD Unavailable [phone] Armand Howard RN Unavailable Unavaila August Hsu Primary Care Provider Miguel Torres DO Primary Care Provider [phone] Rafa Chavez DO Primary Care Provider [phone] Encounter Details Date Type Department Care Team [...] on file Legal Sex Male 1:58 AM WAREHOUSE INSULATION WORKER Gender Identity Not on file Sexual Orientation [...] COVID: Suspected 05/05/2022 05/05/2022 05/05/2022 12:26 PM WAREHOUSE INSULATION WORKER COVID: Suspected 05/05/2022 05/05/2022 05/05/2022 8:19 PM WAREHOUSE INSULATION WORKER COVID: Suspected 03/19/2024 03/19/2024 03/19/2024 3:22 AM WAREHOUSE INSULATION WORKER documented as of this encounter Care Teams Dispatcher Radio Relationship Specialty Start Date End Date Arnel Gonzalez MD [address] [address] PCP - General 07/19/13 07/05/23 August Triana PA [address] [place] [address] PCP - General Physician Cad Designer 07/06/23 01/16/24 Miguel Torres DO [address] [place] [address] PCP - General Internal Medicine 01/17/24 05/31/24 Rafa Chavez DO [address] [place] [address] PCP - General Internal Medicine 06/01/24 Yfn Gill MD [address] [facility] [address] [email or web address] [address] [place] [address] Referring Physician Nephrology 01/22/22 Aguila Chris MD [address] [facility] [address] [facility] [[email or web address] [address] [place] [address] Consulting Physician Cardiology 01/22/22 [place] [address] [address] Consulting Physician Endocrinology Diabetes & Metabolism 01/22/22 Neeraj La MD [address] [facility] [address] [address] Surgeon Vascular Surgery 01/30/22 Armand Howard, RN Registered Nurse 06/30/22 07/02/22 documented as of this encounter
--- OUTSIDE RECORDS SUMMARY | 2024-07-21 13:32 | XMS_ITS | Clinical Summary ---
Author Organization [facility] Address [address] [facility] [place] [address] Care Team Providers Care Professor Of Industrial Technology Name Role Phone Arnel Gonzalez Primary Care Provider [phone] Source Comments [facility],non-[facility] Affiliates and Associated Physician Practices is amultiple site organization consisting of ambulatory clinics and hospital sitesin [place], [place], [place] and [place]. This disclosure is being madepursuant to the Care Everywhere program and may not contain all information available regarding this patient. Last updated 18.[facility] [employer] Allergies Active Allergy Reactions Criticality Noted Date [...] Comments Blood Pressure 136/70 05/05/2021 1:09 PM WASH CREW PERSON Pulse 76 05/05/2021 1:09 PM WASH CREW PERSON Temperature - - Respiratory Rate 14 05/05/2021 1:09 PM WASH CREW PERSON Oxygen Saturation 98% 05/05/2021 1:09 PM WASH CREW PERSON Inhaled Oxygen Concentration - - Weight 121.1 kg (267 lb) 05/05/2021 1:09 PM WASH CREW PERSON Height 172.7 cm (5' 8 ) 05/05/2021 1:09 PM WASH CREW PERSON Body Mass Index 40.6 05/05/2021 1:09 PM WASH CREW PERSON Plan of Treatment Health Maintenance Due Date [...] age to complete this topic Care Teams Professor Of Industrial Technology Relationship Specialty Start Date End Date Arnel Gonzalez DO [address] [facility] [address] [place], [place] [id number] PCP - General 01/03/21
--- OUTSIDE RECORDS SUMMARY | 2024-07-21 13:33 | XMS_ITS | Clinical Summary ---
Author Organization [facility] Address [address] [place] [address] Care Team Providers Care Deployment Manager Name Role Phone Yfn Gill MD Unavailable [phone] Aguila Chris MD Unavailable [phone] Malcolm Castro MD Unavailable [phone] Neeraj La MD Unavailable [phone] Rafa Chavez DO Primary Care Provider [phone] Allergies Active Allergy Reactions Criticality Noted Date [...] 1 tablet (300 mg total) by mouth engagement director before breakfast 04/14/20 20 Active alpha lipoic [...] lidocaine (LIDODERM) 5 % 03/17/20 23 Active calcitRIOL (ROCALTROL) 0.25 mcg capsule Take [...] days 9 mL 3 06/28/19 25 Active bumetanide (BUMEX) 2 mg tabletIndication s:Chronic heart failure with preserved ejection fraction (HCC) Take 1 tablet (2 mg total) by mouth daily 90 tablet 2 07/14/19 25 Active bumetanide (BUMEX) 2 mg tabletIndication s:Chronic heart failure with preserved ejection fraction (HCC) TAKE 1 TABLET TWICE DAILY 180 tablet 2 06/10/19 24 025 Discontinued semaglutide (Ozempic) 0.25 mg or 0.5 mg [...] (06/09/2022): Added automatically from request for surgery [id number] Carotid stenosis, right 01/07/2022 Overview (01/07/2022): Added automatically from request for surgery [id number] Assessment & Plan (04/19/2023 1:00 PM COMPOSING MACHINE OPERATOR/TENDER): Status post TCAR. Stent patent. Continue anti-platelet therapy follow-up 6 months. Assessment & Plan (03/12/2022 5:16 PM COMPOSING MACHINE OPERATOR/TENDER): Impression: Patient is status post right TCAR. [...] (02/05/2020): Added automatically from request for surgery [id number] Hx of colonic polyps 10/10/2019 Overview (10/10/2019): Added automatically from request for surgery [id number] History of colon polyps 07/10/2019 Overview (07/10/2019): Added automatically from request for surgery [id number] Hypertension associated with diabetes 06/29/2019 Assessment & Plan (06/08/2024 2:36 PM COMPOSING MACHINE OPERATOR/TENDER): Chronic problem, Controlled on metoprolol, Entresto, HCTZ, bumetanide, hydralazine, amlodipine. No changes. Assessment & Plan (04/19/2023 1:00 PM COMPOSING MACHINE OPERATOR/TENDER): Hypertension chronic controlled. Continue current medical management [...] actual BMI) Coronary artery disease invo lving karuk coronary artery of karuk heart without angina pectoris 05/06/2015 Overview (08/07/2016): Coronary artery disease involving karuk coronary artery of karuk heart without angina pectoris Assessment & Plan (01/07/2022 3:00 PM CDT): Stable. Continue medical therapy. Mixed diabetic hyperlipidemi a associated with type 2 diabetes mellitus ([facility]) 05/06/2015 Overview (08/07/2016): Type 2 diabetes mellitus with complication Assessment & Plan (06/08/2024 2:36 PM COMPOSING MACHINE OPERATOR/TENDER): Chronic problem. On statin therapy, no changes. Assessment & Plan (04/19/2023 1:00 PM COMPOSING MACHINE OPERATOR/TENDER): Hyperlipidemia chronic and controlled. Continue current medical [...] complication Assessment & Plan (06/08/2024 2:37 PM COMPOSING MACHINE OPERATOR/TENDER): Chronic problem, improving but not at goal. [...] Department Care Team Description 06/13/[address] [facility] [address] [place] [phone] ProviderNelson MD 06/08/2024 1:18 PM COMPOSING MACHINE OPERATOR/TENDER - 06/08/2024 11:59 PM COMPOSING MACHINE OPERATOR/TENDER Hospital Encounter [address] [address] Type 2 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 disease, with long-term current use of insulin (HCC) Discharge Disposition: Discharge to home or self care 06/08/2024 1:15 PM COMPOSING MACHINE OPERATOR/TENDER Office Visit [facility] [id number] [place] [address] [place] [phone] Terra Joiner PA Type 2 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 disease, with long-term current use of insulin (HCC) (Primary Dx); Hypertension associated with diabetes (HCC); Mixed diabetic hyperlipidemia associated with type 2 diabetes mellitus (CMS/HCC) (HCC) 06/02/2024 1:00 PM COMPOSING MACHINE OPERATOR/TENDER Office Visit [facility] [address] [facility] [address] [place] [phone] Malu Solomon NP Edema, lower extremity (Primary Dx); Chronic combined systolic and diastolic CHF (congestive heart failure) (HCC); Stage 3b chronic kidney disease (HCC) 06/01/2024 Telephone [facility] [address] [facility] [address] [place] [phone] Nabil Jacobs MD 05/12/[address] 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 angina pectoris (Primary Dx); S/P CABG x 2; Cardiomyopathy, ischemic; S/P angioplasty with stent; Chronic systolic congestive heart failure (HCC); S/P aortic valve replacement with bioprosthetic valve; Hypertension associated with diabetes (HCC); Stage 3b chronic kidney disease (HCC); Morbid obesity with BMI of 40.0-44.9, adult (HCC); MARY on CPAP 05/10/2024 Telephone [facility] [address] [facility] [address] [place] [phone] Nabil Jacobs MD Medication Problem from Last 3 Months Immunizations Immunization Administration [...] failur e) (HCC) Pneumonia 10/21/2021 hospitalized at [place] with PNA, JUANITA and CHF Cancer (HCC) [...] Comments Cancer Brother Addi Cancer Father Maged Celeste Early Father Maged Celeste Cancer COD Cancer Mother Cyndie Cicio Chronic Pain Mother Cyndie Burrisio Diabetes Mother [...] on file Legal Sex Male 1:58 AM COMPOSING MACHINE OPERATOR/TENDER Gender Identity Not on file Sexual Orientation Not on file Obstetrics History Last Filed Vital Signs Vital Sign Reading Time Taken Comments Blood Pressure 136/62 06/08/2024 1:27 PM COMPOSING MACHINE OPERATOR/TENDER Pulse 79 06/08/2024 1:27 PM COMPOSING MACHINE OPERATOR/TENDER Temperature 36.7 C (98 F) 04/17/2024 7:04 AM COMPOSING MACHINE OPERATOR/TENDER Respiratory Rate 18 06/08/2024 1:27 PM COMPOSING MACHINE OPERATOR/TENDER Oxygen Saturation 95% 06/02/2024 1:00 PM COMPOSING MACHINE OPERATOR/TENDER Inhaled Oxygen Concentration - - Weight 127.3 kg (280 lb 8.6 oz) 06/08/2024 1:27 PM COMPOSING MACHINE OPERATOR/TENDER Height 172.7 cm (5' 8 ) 06/08/2024 1:27 PM COMPOSING MACHINE OPERATOR/TENDER Body Mass Index 42.66 06/08/2024 1:27 PM COMPOSING MACHINE OPERATOR/TENDER Plan of Treatment Health Maintenance Due Date [...] Chronic Care Management No change(04/14 11:08 AM COMPOSING MACHINE OPERATOR/TENDER) Pool Welch, RN Note: Problem: Chronic Pain Goals: 1. Minimize further functional decline 2. Maximize quality of life 3. Control pain Strategies: - Activity/exercise program recommendation - Conservative stepwise pain medicine strategy with multi-disciplinary approach - Recommend healthy lifestyle strategies and compensatory methods as needed Medical Devices Implanted Type Area Fx Artist Device Identifier Shelf Expiration Date Model / Serial / Lot Total Knee Left: Knee Medtronic Inc Resolute [place] 3mm 2.1-2.7fr 12mm 140cm Rapid Exchange Radiopaque [id number] - [id number] Implanted:Qty: 1 on 09/03/2021 by Bindu Goins MD at [facility] Med[employer] Inc 06/11/2024 [id number] / / Medtronic Inc Resolute [place] 3.5mm 2.1-2.7fr 15mm 140cm Rapid Exchange [id number] - [id number] Implanted:Qty: 1 on 09/03/2021 by Bindu Goins MD at [facility] [employer] Inc 04/04/2024 [id number] / / Angio-Seal Vip 6fr Closere Device [id number] - [id number] Implanted:Qty: 1 on 09/03/2021 by Bindu Goins MD at [facility] [employer] Miya 06/02/2022 [id number] / / [employer] Medical Inc Enroute Uber Flex 8mm .065in 40mm 57cm Delivery System Angle Tip Sr-0840-Cs - [id number] Implanted:Qty: 1 on 01/29/2022 by Neeraj La MD at [facility] Right: Carotid [employer] Medical Inc 08/30/2024 SR-0840- CS / / [id number] Matilde [employer] Inc 4.5mm 16mm Fix Screw Bone [id number] - [id number] Implanted:Qty: 3 on 06/30/2022 by Fredy Nguyen MD at [facility] N/A: Spine Cervical MATILDE [employer]OM[employer] SP[employer] INC 14-19359 6 / / Musculoskeletal Transplant 12.3o17z6og Frozen Spine 7d Lordotic Trapezoid Spacer Allograft 147483 - [id number] - [id number] Implanted:Qty: 1 on 06/30/2022 by Fredy Nguyen MD at [facility] N/A: Spine Cervical Musculoskeletal Transplant [id number] 03/25/2025 [id number] / [id number] / Musculoskeletal Transplant 12.8d04a5cn Frozen Spine 7d Lordotic Trapezoid Spacer Allograft 597544 - [id number] - [id number] Implanted:Qty: 1 on 06/30/2022 by Fredy Nguyen MD at [facility] N/A: Spine Cervical Musculoskeletal Transplant [id number] 01/03/2025 [id number] / [id number] / Musculoskeletal Transplant 12.9y92s8rj Frozen Spine 7d Lordotic Trapezoid Spacer Allograft 238417 - [id number] - [id number] Implanted:Qty: 1 on 06/30/2022 by Fredy Nguyen MD at [facility] N/A: Spine Cervical Musculoskeletal Transplant [id number] 04/26/2026 [id number] / [id number] / [employer] Inc C-Ervin Maxan 51mm Level 3 Fix Spine Cervical Anterior Plate Bone 14-803680 - [id number] Implanted:Qty: 1 on 06/30/2022 by Fredy Nguyen MD at [facility] N/A: Spine Cervical MATILDE [employer] SP[employer] INC 14-56438 1 / / Matilde [employer] Inc 4mm 16mm Fix Screw Bone 14-729656 - [id number] Implanted:Qty: 5 on 06/30/2022 by Fredy Nguyen MD at [facility] N/A: Spine Cervical [employer]IL[employer] SP[employer] [id number] 6 / / Access Closure Inc Device 10ml 5fr Closure Mynx Control 2 Mode Balloon Catheter [id number] - [id number] Implanted:Qty: 1 on 03/27/2024 by Nabil Jacobs MD at [facility] Access [employer] Inc 01/18/2026 [id number] / / [id number] Medtronic Card Vasc Surgery 4.0 X 18mm [place] Rx Coronary Stent [id number] - [id number] Implanted:Qty: 1 on 04/17/2024 by Nabil Jacobs MD at [facility] Medtronic Card Vasc Surgery 12/26/2026 [id number] / / [id number] Access [employer]osure Inc Mynx Control 6-7fr 2 Mode Balloon Catheter Sealant Lock Syringe [id number] - [id number] Implanted:Qty: 1 on 04/17/2024 by Nabil Jacobs MD at [facility] [employer] Inc 01/05/2026 [id number] / / [id number] Procedures Procedure Name Priority Date/Time Associated Diagnosis Comments POCT GLUCOSE Routine 06/08/2024 1:18 PM COMPOSING MACHINE OPERATOR/TENDER Type 2 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 disease, with long-term current use of insulin (HCC) POCT HEMOGLOBIN A1C Routine 06/08/2024 1 :18 PM COMPOSING MACHINE OPERATOR/TENDER Type 2 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 disease, with long-term current use of insulin (HCC) ALBUMIN CREATININE RATIO, URINE Routine 06/08/2024 1:18 PM COMPOSING MACHINE OPERATOR/TENDER Type 2 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 disease, with long-term current use of insulin (HCC) POCT LIPID PANEL Routine 06/08/2024 1:18 AM COMPOSING MACHINE OPERATOR/TENDER Type 2 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 disease, with long-term current use of insulin (HCC) HM CREATININE Routine 05/31/2024 12:52 PM COMPOSING MACHINE OPERATOR/TENDER COMPREHENSIVE METABOLIC PANEL Routine 05/31/2024 HEPATITIS C AB REFLEX RNA QUANT PCR Routine 06/14/2019 3:47 PM COMPOSING MACHINE OPERATOR/TENDER COLONOSCOPY REPORT 05/18/2014 from Last 3 Months or Most Recently Relevant to Health Maintenance Results * (ABNORMAL) POCT hemoglobin A1c (06/08/2024 1:18 PM COMPOSING MACHINE OPERATOR/TENDER) Hemoglobin A1C, POC 8.3 4.0 - 5.6 % Capillary blood 06/08/2024 1 :18 PM COMPOSING MACHINE OPERATOR/TENDER Terra CRUZ POINT OF CARE TEST ORDE RABLES Final Result * (ABNORMAL) Albumin Creatinine Ratio, Urine (06/08/2024 1:18 PM COMPOSING MACHINE OPERATOR/TENDER) Albumin Ur 68.0 mg/L Comment: Interpretive Data No reference range established. Current interpretive data was last revised 2018. Creatinine Ur 32.5 mg/dL JOSE MIGUEL Comment: Interpretive Data No reference range established. Current interpretive data was last revised 2018. Albumin Creatinine Ratio, Ur 209(H) 1 - 29 mg/g JOSE MIGUEL Urine 06/08/2024 1:18 PM COMPOSING MACHINE OPERATOR/TENDER 06/08/2024 7:31 PM COMPOSING MACHINE OPERATOR/TENDER Terra CRUZ LAB URINE ORDERABLES Fi nal Result JOSE MIGUEL BOWERS [address] Department [place] [address] * (ABNORMAL) POCT glucose (06/08/2024 1:18 PM COMPOSING MACHINE OPERATOR/TENDER) Glucose Blood, POC 204 mg/dL Comment:PPG 2.5 Hrs Blood 06/08/2024 1:18 PM COMPOSING MACHINE OPERATOR/TENDER Terra CRUZ POINT OF CARE TEST ORDE RABLES Final Result * (ABNORMAL) POCT lipid panel (06/08/2024 1:18 AM COMPOSING MACHINE OPERATOR/TENDER) Cholesterol, POC 154 mg/dL HDL, POC 25 mg/dL Triglycerides, POC 271 mg/dL LDL Cholesterol POC 75 mg/dL Chol/HDL Ratio, POC 6.2 Non-HDL Cholesterol, POC 129 mg/dL Cholesterol Total, POC 154 mg/dL Capillary blood 06/08/2024 1 :18 AM COMPOSING MACHINE OPERATOR/TENDER Terra CRUZ POINT OF CARE TEST ORDE RABLES Final Result * (ABNORMAL) HM CREATININE (05/31/2024 12:52 PM COMPOSING MACHINE OPERATOR/TENDER) SCRIBED Creatinine 2.16(A) 0.7 - 1.3 mg/dl EXTERNAL LAB SCRIBED eGFR in NonAfrican Solomon Islander 30 >59 - NA EXTERNAL LAB Blood 05/31/2024 12:5 2 PM COMPOSING MACHINE OPERATOR/TENDER Historical Provider HEALTH MAINTENANCE Edited Result - Final EXTERNAL LAB * Comprehensive metabolic panel (05/31/2024) Blood Impressions EXTERNAL LAB - 05/31/2024 Lab ordered in error Historical Provider LAB BLOOD ORDERABLES Edit ed Result - Final EXTERNAL LAB * Hepatitis C Antibody Reflex Hepatitis C RNA Quantitative PCR Blood (06/14/2019 3:47 PM COMPOSING MACHINE OPERATOR/TENDER) Hep C Ab Negative Negative JOSE MIGUEL BOWERS Blood specimen (specimen) 06/14/2019 3:47 PM COMPOSING MACHINE OPERATOR/TENDER 06/14/2019 8:03 PM COMPOSING MACHINE OPERATOR/TENDER us Notinfile Unknown LAB MICROBIOLOGY - GENERAL ORD ERABLES Final Result JOSE MIGUEL BOWERS [address] [address] Department [place] [address] * COLONOSCOPY REPORT (05/18/2014) Anatomical Region Laterality Modality Other Narrative 05/18/2014 Ordered by an unspecified provider. Historical Provider GI PROCEDURE ORDERABLES F inal Result from Last 3 Months or Most Recently Relevant to Health Maintenance Insurance [employer] MED[employer] PPO [employer] MED[employer] PPO [employer] MED[employer] PPO Advance Directives For more information, please contact: [phone] * Full Code (Latest Code Status on File) Date Activated Date Inactivated Comments 06/30/2022 6:44 PM 07/03/2022 5:32 PM * Full Code Date Activated Date Inactivated Comments 06/30/2022 6:39 PM 06/30/2022 6:44 PM * Full Code Date Activated Date Inactivated Comments 01/29/2022 2:14 PM 01/30/2022 6:06 PM * Full Code Date Activated Date Inactivated Comments 09/03/2021 12:10 PM 09/04/2021 7:37 PM Care Teams Deployment Manager Relationship Specialty Start Date End Date Rafa Chavez DO [address] [facility] [address] [place] [address] PCP - General Internal Medicine 06/01/24 Yfn Gill MD Referring Physician Nephrology 01/22/22 Aguila Chris MD Consulting Physician Cardiology 01/22/22 [place] [address] [address] Consulting Physician Endocrinology Diabetes & Metabolism 01/22/22 Neeraj La MD [address] [facility] [address] [facility] [place] [address] Surgeon Vascular Surgery 01/30/22
--- OUTSIDE RECORDS SUMMARY | 2024-07-21 13:33 | XMS_ITS | Continuity of Care Document ---
Author Organization [facility] Address [address] [facility] [address] [place] [address] Phone Care Team Providers Care Print Project Manager Name Role Phone Zaheer Tom Unavailable Unavailable [...] Diagnoses Date Provider Providers Copied on Encounter [facility], [address], [place], [place], [id number], [place] tel:[phone] [facility] No Information 0 Vaishali Schwab. [facility] [address], [address], [place]. tel:[phone] Referring Provider: Zaheer evans, [address] [address], [place], [address]. tel:[phone] [facility], [address], [place], [place], [id number], [place] tel:[phone] [facility] [place] No Information 3-201 0 Krishnasamy Zaheer. [address] [place], [place] [address]ate [place] [address], [place], [place], [facility], [place]. tel:[phone] [facility], [address], [place], [place], [id number], [place] tel:[phone] [facility] No Information [address] [employer]. [address] [facility], [address], [place], [place], [id number], [place]. tel:[phone] Referring Provider: Zaheer evans, [address] [place], [place] [address]ate [facility] [address], [place], [place], [facility]. tel:[phone] sulting Provider: Leif Pineda, [address] [place] [address], [place], [facility]. tel:[phone] [facility], [address] [place] [address] [address], [place], [place], [id number], [place] tel:[phone] [facility] No Information 9 Krishnasamy Zaheer. [address] [place], [place] [address]ate [facility] [address], [place], [place], [facility], [place]. tel:[phone] Referring Provider: Zaheer evans, [address] [place], [place] [address]ate [facility] [address], [place], [place], [facility]. tel:[phone] [facility], [address] [place] [address] [address], [place], [place], [id number], [place] tel:[phone] [facility] [place] No Information 200 9 Krishnasamy Zaheer. [address] [place], [place] [address]ate [facility] [address], [place], [place], [facility], [place]. tel:[phone] [facility], [address], [place], [place], [id number], [place] tel:[phone] [facility] No Information 200 [address] Juan Daniel Rios. [address] [facility], [address], [place], [place], [id number], [place]. tel:[phone] Family History Family Member Type Diagnosis Age At Onset No Information Payers Payer name Insurance type Covered constitution party ID Authoriza tion(s) [place] [id number] Social History Type Description Quantity Date Captured [...]
--- OUTSIDE RECORDS SUMMARY | 2024-07-21 13:33 | XMS_ITS | Referral Summary ---
Author Organization [facility] Address [address] [place] [address] Care Team Providers Care Broacher Name Role Phone Yfn Gill MD Unavailable [phone] Aguila Chris MD Unavailable [phone] Malcolm Castro MD Unavailable [phone] Neeraj La MD Unavailable [phone] Rafa Chavez DO Primary Care Provider [phone] Encounters Date Type Department Care Team Description 06/13/2024 Orders Only [facility] Diabetes and Endocrinology [address] [place] [address] ProviderNelson MD 06/08/2024 1:18 PM [facility] - 06/08/2024 11:59 PM [facility] Hospital Encounter [facility] [id number] [place] [address] Type 2 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 disease, with long-term current use of insulin (HCC) Discharge Disposition: Discharge to home or self care 06/08/2024 1:15 PM [facility] Office Visit [facility] [address] [facility] [address], [place] [address] Terra Joiner PA Type 2 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 disease, with long-term current use of insulin ([facility]) (Primary Dx); Hypertension associated with diabetes ([facility]); Mixed diabetic hyperlipidemia associated with type 2 diabetes mellitus (CMS/HCC) (HCC) 06/02/2024 1:00 PM [facility] Office Visit [facility] Cardiology [address] [place] [address] [address] [place] [phone] Malu Solomon NP Edema, lower extremity (Primary Dx); Chronic combined systolic and diastolic CHF (congestive heart failure) ([facility]); Stage 3b chronic kidney disease ([facility]) 06/01/2024 Telephone [facility] Cardiology [address] [place] [address] [address] [place] [phone] Nabil Jacobs MD 05/12/2024 Documentation [facility] Cardiology [address] [place] [address] [place] [phone] Shila Bowers MA 05/10/[address] [place] [phone] Nabil Jacobs MD Medication Problem 05/10/2024 8:30 AM [facility] Office Visit [facility] Cardiology [address] [place] [address] [place] [phone] Nabil Jacobs MD Coronary artery disease involving [place] coronary artery of [place] heart without angina pectoris (Primary Dx); S/P CABG x 2; Cardiomyopathy, ischemic; S/P angioplasty with stent; Chronic systolic congestive heart failure ([facility]); S/P aortic valve replacement with bioprosthetic valve; Hypertension associated with diabetes ([facility]); Stage 3b chronic kidney disease ([facility]); Morbid obesity with BMI of 40.0-44.9, adult ([facility]); MARY on CPAP from Last 3 Months Allergies Active Allergy [...] 1 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 Stent patent. Continue anti-platelet therapy follow-up 6 months. Assessment & Plan (03/12/2022 5:16 PM [facility]): Impression: Patient is status post right TCAR. [...] (02/05/2020): Added automatically from request for surgery [id number] Hx of colonic polyps 10/10/2019 Overview (10/10/2019): Added automatically from request for surgery [id number] History of colon polyps 07/10/2019 Overview (07/10/2019): Added automatically from request for surgery [id number] Hypertension associated with diabetes 06/29/2019 Assessment & Plan (06/08/2024 2:36 PM [facility]): Chronic problem, Controlled on metoprolol, Entresto, HCTZ, bumetanide, hydralazine, amlodipine. No changes. Assessment & Plan (04/19/2023 1:00 PM [facility]): Hypertension chronic controlled. Continue current medical management [...] actual BMI) Coronary artery disease invo lving [place] coronary artery of [place] heart without angina pectoris 05/06/2015 Overview (08/07/2016): Coronary artery disease involving [place] coronary artery of [place] heart without angina pectoris Assessment & Plan (01/07/2022 3:00 PM CDT): Stable. Continue medical therapy. Mixed diabetic hyperlipidemi a associated with type 2 diabetes mellitus ([facility]) 05/06/2015 Overview (08/07/2016): Type 2 diabetes mellitus with complication Assessment & Plan (06/08/2024 2:36 PM [facility]): Chronic problem. On statin therapy, no changes. Assessment & Plan (04/19/2023 1:00 PM [facility]): Hyperlipidemia chronic and controlled. Continue current medical [...] complication Assessment & Plan (06/08/2024 2:37 PM [facility]): Chronic problem, improving but not at goal. [...] week so we can look at his archify data and advise on changes to his [...] on file Legal Sex Male 1:58 AM [facility] Gender Identity Not on file Sexual Orientation Not on file Last Filed Vital Signs Vital Sign Reading Time Taken Comments Blood Pressure 136/62 06/08/2024 1:27 PM [facility] Pulse 79 06/08/2024 1:27 PM [facility] Temperature 36.7 C (98 F) 04/17/2024 7:04 AM [facility] Respiratory Rate 18 06/08/2024 1:27 PM [facility] Oxygen Saturation 95% 06/02/2024 1:00 PM [facility] Inhaled Oxygen Concentration - - Weight 127.3 kg (280 lb 8.6 oz) 06/08/2024 1:27 PM [facility] Height 172.7 cm (5' 8 ) 06/08/2024 1:27 PM [facility] Body Mass Index 42.66 06/08/2024 1:27 PM [facility] Plan of Treatment Not on file Goals Goal Patient Goal Type Associated Problems Recent Progress Patient-Stated? Author CCM Chronic Pain Care Plan Chronic Care Management No change(04/14 11:08 AM [facility]) No Pool Frey RN Note: Problem: Chronic Pain Goals: 1. Minimize further functional decline 2. Maximize quality of life 3. Control pain Strategies: - Activity/exercise program recommendation - Conservative stepwise pain medicine strategy with multi-disciplinary approach - Recommend healthy lifestyle strategies and compensatory methods as needed Medical Devices Implanted Type Area Piecer Up Device Identifier Shelf Expiration Date Model / Serial / Lot Total Knee Left: Knee Medtronic Inc Resolute Ian 3mm 2.1-2.7fr 12mm 140cm Rapid Exchange Radiopaque [id number] - [id number] Implanted:Qty: 1 on 09/03/2021 by Bindu Goins MD at [facility] Medtronic Inc 06/11/2024 [id number] / / Medtronic Inc Resolute Ian 3.5mm 2.1-2.7fr 15mm 140cm Rapid Exchange [id number] - [id number] Implanted:Qty: 1 on 09/03/2021 by Bindu Goins MD at [facility] [employer] Inc 04/04/2024 [id number] / / Angio-Seal Vip 6fr Closere Device [id number] - [id number] Implanted:Qty: 1 on 09/03/2021 by Bindu Goins MD at [facility] [employer]ent My Items Miya 06/02/2022 [id number] / / [employer] Enroute Uber Flex 8mm .065in 40mm 57cm Delivery System Angle Tip [id number] - [id number] Implanted:Qty: 1 on 01/29/2022 by Neeraj La MD at [facility] Right: Carotid [employer] 08/30/2024 [id number] / / [id number] Matilde [employer] Inc 4.5mm 16mm Fix Screw Bone [id number] - [id number] Implanted:Qty: 3 on 06/30/2022 by Fredy Nguyen MD at [facility] N/A: Spine Cervical MATILDE [employer] INC [id number] / / Musculoskeletal Transplant 12.1o21r5cj Frozen Spine 7d Lordotic Trapezoid Spacer Allograft [id number] - [id number] - [id number] Implanted:Qty: 1 on 06/30/2022 by Fredy Nguyen MD at [facility] N/A: Spine Cervical Musculoskeletal Transplant [id number] 03/25/2025 [id number] / [id number] / Musculoskeletal Transplant 12.2x01k4im Frozen Spine 7d Lordotic Trapezoid Spacer Allograft 772793 - [id number] - [id number] Implanted:Qty: 1 on 06/30/2022 by Fredy Nguyen MD at [facility] N/A: Spine Cervical Musculoskeletal Transplant [id number] 01/03/2025 [id number] / [id number] / Musculoskeletal Transplant 12.3o79q4lz Frozen Spine 7d Lordotic Trapezoid Spacer Allograft 399851 - [id number] - [id number] Implanted:Qty: 1 on 06/30/2022 by Fredy Nguyen MD at [facility] N/A: Spine Cervical Musculoskeletal Transplant [id number] 04/26/2026 [id number] / [id number] / [employer] C-Ervin Maxan 51mm Level 3 Fix Spine Cervical Anterior Plate Bone [id number] - [id number] Implanted:Qty: 1 on 06/30/2022 by Fredy Nguyen MD at [facility] N/A: Spine Cervical [employer] [id number] / / [employer]ilde [employer] Inc 4mm 16mm Fix Screw Bone [id number] - [id number] Implanted:Qty: 5 on 06/30/2022 by Fredy Nguyen MD at [facility] N/A: Spine Cervical [employer] [id number] 6 / / Access Closure Inc Device 10ml 5fr Closure Mynx Control 2 Mode Balloon Catheter [id number] - [id number] Implanted:Qty: 1 on 03/27/2024 by Nabil Jacobs MD at [facility] Access [employer] Inc 01/18/2026 [id number] / / [id number] Medtronic Card Vasc Surgery 4.0 X 18mm Ian [place] Rx Coronary Stent [id number] - [id number] Implanted:Qty: 1 on 04/17/2024 by Nabil Jacobs MD at [facility] Medtronic Card Vasc Surgery 12/26/2026 [id number] / / [id number] Access Closure Inc Mynx Control 6-7fr 2 Mode Balloon Catheter Sealant Lock Syringe [id number] - [id number] Implanted:Qty: 1 on 04/17/2024 by Nabil Jacobs MD at [facility] [employer] Inc 01/05/2026 [id number] / / [id number] Procedures Procedure Name Priority Date/Time Associated Diagnosis Comments POCT GLUCOSE Routine 06/08/2024 1:18 PM [facility] Type 2 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 disease, with long-term current use of insulin (HCC) POCT HEMOGLOBIN A1C Routine 06/08/2024 1 :18 PM [facility] Type 2 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 disease, with long-term current use of insulin (HCC) ALBUMIN CREATININE RATIO, URINE Routine 06/08/2024 1:18 PM [facility] Type 2 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 disease, with long-term current use of insulin (HCC) POCT LIPID PANEL Routine 06/08/2024 1:18 AM [facility] Type 2 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 disease, with long-term current use of insulin (HCC) HM CREATININE Routine 05/31/2024 12:52 PM [facility] COMPREHENSIVE METABOLIC PANEL Routine 05/31/2024 HEPATITIS C AB REFLEX RNA QUANT PCR Routine 06/14/2019 3:47 PM [facility] COLONOSCOPY REPORT 05/18/2014 from Last 3 Months or Most Recently Relevant to Health Maintenance Results * (ABNORMAL) POCT hemoglobin A1c (06/08/2024 1:18 PM [facility]) Hemoglobin A1C, POC 8.3 4.0 - 5.6 % Capillary blood 06/08/2024 1 :18 PM [facility] Terra CRUZ POINT OF CARE TEST ORDMichelle CHINO Final Result * (ABNORMAL) Albumin Creatinine Ratio, Urine (06/08/2024 1:18 PM [facility]) [facility] Albumin Ur 68.0 mg/L Comment: Interpretive Data No reference range established. Current interpretive data was last revised 2018. Creatinine Ur 32.5 mg/dL [facility] Comment: Interpretive Data No reference range established. Current interpretive data was last revised 2018. Albumin Creatinine Ratio, Ur 209(H) 1 - 29 mg/g [facility] Urine 06/08/2024 1:18 PM [facility] 06/08/2024 7:31 PM [facility] Result Milady Terra CRUZ LAB URINE ORDERABLES Fi nal Result [facility] [address] [address] Mauro Department [place] [address] * (ABNORMAL) POCT glucose (06/08/2024 1:18 PM [facility]) [facility] Glucose Blood, POC 204 mg/dL Comment:PPG 2.5 Hrs Blood 06/08/2024 1:18 PM [facility] Result [facility] Terra CRUZ POINT OF CARE TEST ORDE RABLES Final Result * (ABNORMAL) POCT lipid panel (06/08/2024 1:18 AM [facility]) [facility] Cholesterol, POC 154 mg/dL HDL, POC 25 mg/dL Triglycerides, POC 271 mg/dL LDL Cholesterol POC 75 mg/dL Chol/HDL Ratio, POC 6.2 Non-HDL Cholesterol, POC 129 mg/dL Cholesterol Total, POC 154 mg/dL Capillary blood 06/08/2024 1 :18 AM [facility] Terra CRUZ POINT OF CARE TEST ORDE RABLES Final Result * (ABNORMAL) HM CREATININE (05/31/2024 12:52 PM [facility]) [facility] SCRIBED Creatinine 2.16(A) 0.7 - 1.3 mg/dl EXTERNAL LAB SCRIBED eGFR in NonAfrican [place]ian 30 >59 - NA EXTERNAL LAB Blood 05/31/2024 12:5 2 PM [facility] Historical Provider HEALTH MAINTENANCE Edited Result - Final EXTERNAL LAB * Comprehensive metabolic panel (05/31/2024) Blood Impressions EXTERNAL LAB - 05/31/2024 Lab ordered in error Historical Provider LAB BLOOD ORDERABLES Edit ed Result - Final EXTERNAL LAB * Hepatitis C Antibody Reflex Hepatitis C RNA Quantitative PCR Blood (06/14/2019 3:47 PM [facility]) Hep C Ab Negative Negative JOSE MIGUEL Blood specimen (specimen) 06/14/2019 3:47 PM [facility] 06/14/2019 8:03 PM [facility] Notinfile Unknown LAB MICROBIOLOGY - GENERAL ORD ERABLES Final Result Performing Organization Address [facility] Co de Phone Number JOSE MIGUEL [address] [address] Department [place] [address] * COLONOSCOPY REPORT (05/18/2014) Anatomical Region Laterality Modality Other Narrative 05/18/2014 Ordered by an unspecified provider. Historical Provider GI PROCEDURE ORDERABLES F inal Result from Last 3 Months or Most Recently Relevant to Health Maintenance Insurance [employer] MEDICARE PPO [employer] MEDICARE PPO [employer] MEDICARE PPO Advance Directives For more information, please contact: [phone] * Full Code (Latest Code Status on File) Date Activated Date Inactivated Comments 06/30/2022 6:44 PM 07/03/2022 5:32 PM * Full Code Date Activated Date Inactivated Comments 06/30/2022 6:39 PM 06/30/2022 6:44 PM * Full Code Date Activated Date Inactivated Comments 01/29/2022 2:14 PM 01/30/2022 6:06 PM * Full Code Date Activated Date Inactivated Comments 09/03/2021 12:10 PM 09/04/2021 7:37 PM Care Teams Broacher Relationship Specialty Start Date End Date Rafa Chavez DO [address] [address] PCP - General Internal Medicine 06/01/24 Yfn Gill MD Referring Physician Nephrology 01/22/22 Aguila Chris MD Consulting Physician Cardiology 01/22/22 [place] [address] [address] Consulting Physician Endocrinology Diabetes & Metabolism 01/22/22 Neeraj La MD [address] [address] Surgeon Vascular Surgery 01/30/22
--- OUTSIDE RECORDS SUMMARY | 2024-07-21 13:33 | XMS_ITS | Clinical Summary ---
Author Organization [facility] Address [address] [place] [address] Phone Care Team Providers Care Respite Provider Name Role Phone Arnel Gonzalez DO Primary Care Provider [phone] Allergies Active Allergy Reactions Criticality Noted Date [...] 300 MG tablet 04/14/2020 Active Droplet Pen Liberty 31G X 5 MM misc 07/28/2020 Active [...] 12/22/2021 Active ergocalciferol (VITAMIN D2) 1.25 MG (73112 UT) capsule TAKE ONE CAPSULE BY MOUTH [...] diabetes mellitus with complication Coronary arteriosclerosis in [place] artery 01/29 Overview (03/06/2019): CAD (coronary artery disease) Coronary artery disease involving [place] coronary artery of [place] heart without angina pectoris Coronary atherosclerosis 01/29/2015 Overview (08/30/2020): CAD (coronary artery disease) Coronary artery disease involving [place] coronary artery of [place] heart without angina pectoris H/O: artificial heart [...] 03/03/2020, 02/01/2020, Additional history exists Care Teams Respite Provider Relationship Specialty Start Date End Date Arnel Gonzalez DO [address] [facility] [address] [place] [id number] PCP - General Internal Medicine 01/31/19
--- OUTSIDE RECORDS SUMMARY | 2024-07-21 13:33 | XMS_ITS | Data Portability ---
Author Organization [place] [facility] [employer], Main Office Address [address] [place] [address] Care Team Providers Care Cook Chill Technician Name Role Phone BENITAJOCELYNE MACDONALD Primary Care Provider [phone] JOCELYNE DAUGHERTY Referring Provider Assessment Encounter Date Assessment Date Assessment LastModified by Organization Details LastModified Time 01/27/2024 01/27/2024 This note is dictated and transcribed by [employer]. Fur Blowing Machine Attendant variances may occur. Despite proofreading, typographical errors may occur. Occasional wrong-word or 'sgnsf-c-tizp' substitutions may have occurred due to the inherent limitations of voice recording. Read the chart carefully and recognize, using context, where substitutions have occurred. Not available 01/27/2024 14:32:20 05/11/2024 05/11/2024 This note is dictated and transcribed by [employer]. Fur Blowing Machine Attendant variances may occur. Despite proofreading, typographical errors may occur. Occasional wrong-word or 'akoqa-o-xren' substitutions may have occurred due to the inherent limitations of voice recording. Read the chart carefully and recognize, using context, where substitutions have occurred. Not available 05/11/2024 16:20:38 Plan of Treatment Reminders Order Date Submit Date Provider Last Modified By Organization Details Last Modified Time Details Appointments Establish ed Patient 15 2024 02:45P Barbra Cardoso DPM Not available Not available Not available Lab None recorded. Referral None recorded. Procedures None recorded. Surgeries None recorded. Imaging None recorded. Medication Orders ammonium lactate 12 % lotion 2022 023 [facility] #[id number], [address], [place], [address], 03/30/2023 15:16:36 Patient TargetsNo targets recorded. Patient Instructions Encounter Date Encounter Id Patient Instructions Last Modified By Organization Details Last Modified Time 05/11/2024 [id number] diabetic foot care education Not available 05/11/2024 16:21:28 Reason for Referral None Reported. Problems Name Problem SNOMED Code Status Onset Date Resolution Date Notes Provider Name and Address Organization Details Recorded Time Arthritis 3711563 Active 2022 Yovana crooks [facility] 3 14:52:19 Diabetes mellitus 97280585 Active 2022 Yovana Arvizu null, [facility] 3 14:52:25 Ear problem 940504865 Active 2022 Yovana Arvizu null, [facility] 3 14:52:32 Disorder of eye 646876100 Active 2022 Yovana Arvizu null, [facility] 3 14:52:40 Heart disease 59953949 Active 2022 Yovana Arvizu null, [facility] 3 14:52:46 Hyperchole sterolemia 10536630 Active 2022 Yovana Arvizu null, [facility] 3 14:52:56 Kidney disease 25268405 Active 2022 Yovana Arvizu null, [facility] 3 14:53:05 Obesity 024931486 Active 2022 Yovana crooks, [facility] 3 14:53:12 Sleep disorder 75234179 Active 2022 Yovana Arvizu null, [facility] 3 14:53:29 Dystrophia unguium 75596275 Active 2022 Merrick Cardoso, TANYA [address] [facility], [place] [address], [place], [address] , [facility] 3 15:14:00 Acquired hallux limitus of right great toe 4896180598573 100 Active 2022 Merrick Cardoso DPM [address], [address], [place], [address] , [facility] 3 15:14:44 Foot callus 941644011 Active 2022 Merrick Cardoso DPM [address], [address], [place], [address] , [facility] 3 15:15:32 Fissure in skin 86925308 Active 2022 Merrick Cardoso DPM [address], [address], [place], [address] , [facility] 3 15:15:39 Edema of lower extremity 680846061 Active 2024 Merrick Cardoso DPM [address], [address], [place], [address] , [facility] 5 16:21:15 Notes:back/neck problem, pro state, urinary/bladder/kidney problems, use of blood thinners Problem Notes None recorded. Procedures Surgical History Date Name Laterality Status Provider Name and Address Organization Details Recorded Time 01/27/20 24 Nail Debridement completed Merrick Cardoso DPM [address], [place], [address], [facility] 01/27/2024 14:31:56 01/12/20 23 Nail Debridement completed Merrick Cardoso DPM [address], [place], [address], [facility] 01/11/2023 15:13:45 Knee Surgery completed Not Available [facility] 07/01/2022 13:12:58 procedure on heart completed Not Available [facility] 07/01/2022 13:12:58 procedure on urinary bladder completed Not Available [facility]/2022 13:12:58 Imaging Results None recorded. Procedure Notes None recorded. Medical Equipment None Reported. Allergies Allergen ID Allergen Name Allergen Category Reaction Reaction Severity Criticality Documentation Date Start Date Code Code System Note Provider Name and Address Organization Details Recorded Time 99654 codeine medicatio n itching Not available Not available 07/01/2022 2670 RxNorm Not Available [facility] 13:15:32 Medications Name Sig Start Date Stop [...] Updated DateTime 01/11/2023 172.72 cm 39.5 kg/m2 642177.02 g Yovana Nolberto [facility] [employer] [facility] 01/11/2023 14:52:01 Date Recorded Heart rate Respiratory rate Body temperature Oxygen saturation Oxygen saturation in Arterial blood by Pulse oximetry Systolic blood pressure Diastolic blood pressure Provider Name and Address Organization Details Last Updated DateTime 3 76 /min 16 /min 97.4 [degF] 98 % 98 % 130 mm[Hg] 82 mm[Hg] Deanna Navarrete [facility] [employer] [facility] 3 14:54:08 Date Recorded Body height Body mass index (BMI) Body weight Heart rate Respiratory rate Oxygen saturation Oxygen saturation in Arterial blood by Pulse oximetry Systolic blood pressure Diastolic blood pressure Provider Name and Address Organization Details Last Updated DateTime 3 172.72 cm 39.5 kg/m2 033468. 02 g 99 /min 14 /min 97 % 97 % 143 mm[Hg] 73 mm[Hg] Marta Najera [facility] [employer] [facility] 3 14:38:18 Date Recorded Body height Body mass index (BMI) Body weight Heart rate Respiratory rate Oxygen saturation Oxygen saturation in Arterial blood by Pulse oximetry Systolic blood pressure Diastolic blood pressure Provider Name and Address Organization Details Last Updated DateTime 4 172.72 cm 39.5 kg/m2 665875. 02 g 96 /min 14 /min 98 % 98 % 163 mm[Hg] 77 mm[Hg] Marta Najera [facility] [employer] [facility] 4 16:40:20 Date Recorded Body height Body mass index (BMI) Body weight Heart rate Respiratory rate Oxygen saturation Oxygen saturation in Arterial blood by Pulse oximetry Systolic blood pressure Diastolic blood pressure Provider Name and Address Organization Details Last Updated DateTime 4 172.72 cm 39.5 kg/m2 243085. 02 g 85 /min 14 /min 98 % 98 % 137 mm[Hg] 75 mm[Hg] Marta Najera [place] [facility] 4 14:11:03 Date Recorded Body height Body mass index (BMI) Body weight Heart rate Respiratory rate Oxygen saturation Oxygen saturation in Arterial blood by Pulse oximetry Systolic blood pressure Diastolic blood pressure Provider Name and Address Organization Details Last Updated DateTime 5 172.72 cm 39.5 kg/m2 971930. 02 g 102 /min 16 /min 97 % 97 % 126 mm[Hg] 66 mm[Hg] Marta Najera [facility] 5 15:19:04 Social History Question Answer Notes LastModified by Organizat ion Details LastModified Time Tobacco Smoking Status Former Smoker Yovana Nolberto crooks, [facility] 01/11/2023 14:55:43 What Is Your Level Of Alcohol Consumption? None [email or web address] Information not available 01/11/2023 Sex: Unknown Functional Status None recorded. Mental Status None recorded. Family History Relationship Description Onset Age of this Age Resolved Age Notes LastModified by Organization Details LastModified Time Unspecified Relation Hypertensive disorder [id number].075 [id number] Not available 07/01/2022 13:12:59 Unspecified Relation Diabetes mellitus [id number].802 [id number] Not available 07/01/2022 13:12:59 Unspecified Relation Kidney disease MIGRATION.639 [id number] Not available 07/01/2022 13:12:59 Unspecified Relation Arthritis [email or web address] Not available 023 14:55:21 Medical History Condition Response BLINDNESS N KIDNEY STONES Y MRSA N CARPAL TUNNEL SYNDROME N LUNG DISEASE/DISORDER N HISTORY OF DRUG ABUSE N COPD N RADIATION / CHEMOTHERAPY N SPORTS INJURY N ANKLE PAIN N BLOOD DISEASES N SCHIZOPHRENIA N SHINGLES N BOWEL PROBLEMS N SHOULDER PAIN N DEPRESSION (INCLUDING POST ) N STROKE/TIA N ULCERS N KNEE PAIN N BENIGN PROSTATIC HYPERPLASIA N OBESITY Y [...] HAVE YOU BEEN HOSPITALIZED OR SEEN IN [facility] IN THE PAST YEAR ? N [...] SNOMED-CT Code Diagnosis ICD10 Code Diagnosis Note [id number] [facility] [place] [address] [place] [address] 02/13/2021 00:00:00 02/13/2021 11:18:11 [id number] Merrick Cardoso DPM [facility] [place] [place] [address] [place] [address] 01/11/2023 14:37:23 01/20/2023 11:58:11 Diabetes mellitus 25903227 E11.40 Patient educated on neuropathy , diabetes, diabetic diet, and daily foot exams. Patient is to check feet daily for new wounds, blisters, redness to prevent infection and ulceration s to the feet. Patient will return to clinic in 3 months for diabetic foot workup. Dystrophia unguium 61291 009 L60.3 left great toenailDeb rided without incident follow-up as needed Acquired h allux limitus of right great toe 0778104526 139851 M20.5X1 educated on conditionC ontinue supportive shoe gearRange of motion exercises dailyRice therapyFol low-up as needed [id number] Merrick Cardoso DPM [facility] [place] [address] [facility] [place] [address] 03/30/2023 14:22:28 04/02/2023 09:27:28 Foot callus 425343166 L84 right footuse rory pena dailyfollo w up as needed Fissure in skin 70926916 R23.4 keep area cleancont DM insolesmay require more support to prevent sheering in shoes [id number] Merrick Cardoso DPM [facility] Pod[facility] [place] [address], [address] [place] [address] 07/06/2023 16:36:52 07/07/2023 13:50:23 Foot callus 558104218 L84 resolvedus e rory pena dailyno further paincont supportive shoefollow up as needed [id number] Merrick Cardoso DPM [facility] [place] [address] [place] [address] 01/27/2024 13:57:23 01/27/2024 14:38:22 Diabetes mellitus 46828036 E11.40 continue diabetic control per PCP recommenda tion Acquired h allux limitus of right great toe 3256315422 145024 M20.5X1 educated on conditionC ontinue supportive shoe gearRange of motion exercises dailyRice therapywil l monitor Dystrophia unguium 15188 009 L60.3 left great toenailtoe nails debrided without incident [id number] Merrick Cardoso DPM [facility] Podiatry [place] [address] [place] [address] 05/11/2024 15:12:23 05/16/2024 15:30:57 Diabetes mellitus 73657771 E11.40 continue diabetic control per PCP recommenda tionrecomm end supportive shoe gearCheck foot daily for wounds infectionF ollow-up in 3 months for diabetic foot care Edema of l ower extremity 708141513 R60.0 recommend chronic compressio n stockings bilateral [...] REPLACEMENT/A DVANTAGE - PPO) Sabino Wells Cicio [id number] Gabriel Wells Cicio 03/30/2023 1 [employer] (MEDICARE REPLACEMENT/A DVANTAGE - PPO) Sabino Wells Cicio [id number] Gabriel Wells Cicio 07/06/2023 1 [employer] (MEDICARE REPLACEMENT/A DVANTAGE - PPO) Sabino Celeste [id number] Gabriel Wells Cicio 01/27/2024 1 [employer] (MEDICARE REPLACEMENT/A DVANTAGE - PPO) Sabino Wells Cicio [id number] Gabriel Wells Cicio 05/11/2024 1 [employer] (MEDICARE REPLACEMENT/A DVANTAGE - PPO) Sabino Celeste [id number] Gabriel Celeste Notes Date Note Type Note [...] Cardoso DPM [address], [address], [place], [address], [facility] 01/19/2023 16:40:59 3 text/html Patient is a 77 yr old male who presents for callus to the plantar foot. Patient denies any wounds. Patient denies any other pedal complaints. Merrick Cardoso DPM [address], [place], [address], [employer] 04/02/2023 09:14:24 4 text/html Patient follows up for callus, he states with proper shoe gear and use of pumas stone he no longer has pain or the callus. Denies any new complaints. Merrick Cardoso DPM [address], [place], [address], [facility] 07/07/2023 10:04:27 text/html . Patient is a [...] Cardoso DPM [address], [address], [place], [address], [facility] 01/27/2024 14:33:25 text/html . Patient is a 78-year-old male diabetic who returns the office for routine diabetic foot care. Patient states overall he is doing well denies any wounds or infection of the feet. Patient does have swelling of his lower extremities that is bggv-cg-gzqktgfp in nature he denies any calf pain or open wounds to the lower legs I did recommend compression stockings he is currently being evaluated for congestive heart failure. Patient denies any other complaints. Merrick Cardoso DPM [address], [place], [address], [facility] 05/11/2024 16:21:52
--- OUTSIDE RECORDS SUMMARY | 2024-07-21 13:33 | XMS_ITS | Clinical Summary ---
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 Oxygen Saturation 96% 10/12/2023 3:33 PM CDT [...] 02/24/2022, 02/27/2021, Additional history exists PHQ-2 (Physician Somers) 05/03/2024 10/12/2023 Lipid Panel 06/16/2024 06/16/2023 Zoster Vaccines Completed 05/07/2021, 02/18/2021 Meningococcal B Vaccine Aged Out No l onger eligible based on patient's age to complete this topic Meningococcal Vaccine Aged Out No jorge kelsi eligible based on patient's age to complete this topic RSV Immunizations Under 20 Months Aged Out No longer eligible based on patient's age to complete this topic Insurance [facility] Care Teams Carpet Cleaner Relationship Specialty Start Date End Date Arnel Gonzalez MD [address] [place] [address] PCP - General INTERNAL MEDICINE 06/22/23
[2024-07-21 13:40] LABS: Add Urine Microscopic? YES; Appearance Urine Clear (Clear); Bacteria Urine None Seen /hpf; Bilirubin Urine Negative (Negative); Blood Urine Negative (Negative); Color Urine Yellow (Yellow); Glucose Urine UA 3+ mg/dL (Negative); Ketones Urine Negative (Negative); Leukocyte Esterase Ur Negative LEU/UL (Negative); Need Manual Microscopic Reviewed; Nitrate Urine Negative (Negative); Non Pathogenic Casts 0-2; Protein Urine 2+ mg/dL (Negative); RBC Urine 0-2 /hpf (0-2); Specific Grav Ur 1.019 (1.001-1.035); Squamous Epithelial Cell Urine Few /hpf (Few); Urobilinogen Urine 0.2 mg/dL (<2.0); pH Urine 6.5 (5.0-9.0)
[2024-07-21 13:40] LABS: Alanine Aminotransferase 24 U/L (6-50); Albumin Level 4.4 g/dL (3.5-5.1); Alkaline Phosphatase 84 U/L (38-126); Anion Gap 12 mmol/L (4-12); Aspartate Amino Transferase 27 U/L (17-59); Bilirubin,Total 0.6 mg/dL (0.2-1.3); Blood Urea Nitrogen 40 mg/dL (9-20); Calcium 9.3 mg/dL (8.4-10.2); Carbon Dioxide 33 mmol/L (22-30); Chloride 96 mmol/L (98-107); Estimated Glomerular Filt Rate 29; Glucose 160 mg/dL (65-110); Potassium 3.5 mmol/L (3.4-5.0); Sodium 141 mmol/L (137-145)
[2024-07-21 13:52] LABS: Hemoglobin A1C 7.5 % (<5.7)
== END 2024-07-21 12:56 | disposition home or self-care (01) ==
PROVIDERS: Nurse Practitioner; PCP Internal Medicine; Referring Provider Internal Medicine Nephrology; Visit Provider Clinical Nurse Specialist
DX: I11.0 Hypertensive heart disease with heart failure (principal); I50.33 Acute on chronic diastolic (congestive) heart failure; E78.5 Hyperlipidemia, unspecified; E11.69 Type 2 diabetes mellitus with other specified complication; E78.2 Mixed hyperlipidemia; E11.29 Type 2 diabetes mellitus with other diabetic kidney complication; N39.0 Urinary tract infection, site not specified; R31.9 Hematuria, unspecified; R30.0 Dysuria; R80.9 Proteinuria, unspecified; Z79.4 Long term (current) use of insulin
CPT/HCPCS: 36415; 80053; 81001; 83036; 85025; 87086

== ENCOUNTER 2024-08-30 15:20 | Outpatient (CLI) | payer MEDICARE, SELFPAY ==
--- OUTSIDE RECORDS SUMMARY | 2024-08-30 16:14 | XMS_ITS | Referral Summary ---
Author Organization [facility] Address [address] [place] [address] Care Team Providers Care Agricultural Sciences Professor Name Role Phone Yfn Gill MD Unavailable [phone] Aguila Chris MD Unavailable [phone] Malcolm Castro MD Unavailable [phone] Neeraj La MD Unavailable [phone] Rafa Chavez DO Primary Care Provider [phone] Encounters Date Type Department Care Team Description 08/23/2024 1:45 PM CDT Office Visit [facility] Cardiology [address] [facility] [address] [place] [address] Nabil Jacobs MD Coronary artery disease involving [place] coronary artery of [place] heart without angina pectoris (Primary Dx); S/P angioplasty with stent; S/P CABG x 2; S/P aortic valve replacement with bioprosthetic valve; Chronic combined systolic and diastolic CHF (congestive heart failure) (HCC); Cardiomyopathy, ischemic; Hypertension associated with diabetes (HCC); Stage 3b chronic kidney disease (HCC); MARY on CPAP 06/13/2024 Orders Only [facility] Diabetes and Endocrinology [facility] [place] [address] Nelson Ponce MD 06/08/2024 1:18 PM JEWEL STRIPPER - 06/08/2024 11:59 PM JEWEL STRIPPER Hospital Encounter [facility] [address] [place] [address] Type 2 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 disease, with long-term current use of insulin (HCC) Discharge Disposition: Discharge to home or self care 06/08/2024 1:15 PM JEWEL STRIPPER Office Visit [facility] [address] [facility] [address] [place] [address] Terra Joiner PA Type 2 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 disease, with long-term current use of insulin (HCC) (Primary Dx); Hypertension associated with diabetes (HCC); Mixed diabetic hyperlipidemia associated with type 2 diabetes mellitus (CMS/HCC) (HCC) 06/02/2024 1:00 PM JEWEL STRIPPER Office Visit [facility] [address] [facility] [address] [place] [address] Malu Solomon NP Edema, lower extremity (Primary Dx); Chronic combined systolic and diastolic CHF (congestive heart failure) (HCC); Stage 3b chronic kidney disease (HCC) 06/01/2024 Telephone [facility] Cardiology [address] [facility] [address] [place] [address] Nabil Jacobs MD from Last 3 Months Allergies Active Allergy Reactions Criticality Noted Date Comments Codeine Itching Medium 08/08/2013 Hydrocodone Nausea & Vomiting Low 01/22/2022 Tramadol Nausea & Vomiting,Na usea And Vomiting,Unknown Low 10/18/2017 severe Medications terazosin (HYTRIN) 10 mg capsule take 1 capsule by oral route every day at bedtime 0 0 3 Active omeprazole (PriLOSEC) 20 mg capsuleIndicatio ns:Treatment of Non-Bleeding Gastric Disorder Take 1 capsule (20 mg total) by mouth every morning Active finasteride (PROSCAR) 5 mg tablet Take 1 tablet (5 mg total) by mouth daily 90 tablet 3 0 Active allopurinoL (ZYLOPRIM) 300 mg tabletIndication s:prevention of acute gout attack Take 1 tablet (300 mg total) by mouth firer kiln before breakfast 0 Active alpha lipoic acid 600 mg tabletIndication s:pain Take 1 tablet by mouth nightly Active Accu-Chek Mariel Plus test strp strip 2 Active Accu-Chek Softclix Lancets lancets 2 Active Droplet Pen Needle 31 gauge x 07/16 needle 2 Active multivitamin tabletIndication s:Vitamin Deficiency Prevention Take 1 tablet by mouth every morning Active hydrOXYzine (ATARAX) 10 mg tabletIndication s:anxiety Take 1 tablet (10 mg total) by mouth as needed 2 Active Accu-Chek Guide Glucose Meter misc 2 Active ergocalciferol (VITAMIN D) 50,000 unit capsuleIndicatio [...] Active lidocaine (LIDODERM) 5 % 3 Active calcitRIOL (ROCALTROL) 0.25 mcg capsule Take 1 capsule (0.25 mcg total) by mouth daily 4 Active gabapentin (NEURONTIN) 300 mg capsule Take 1 capsule (300 mg total) by mouth 3 (three) times a day 4 Active hydroCHLOROthiaz molly (HYDRODIURIL) 25 mg tablet Take 1 tablet (25 mg total) by mouth daily 4 Active sacubitriL-valsa rtan (ENTRESTO) 49-51 mg tabletIndication s:chronic heart failure Take 1 tablet by mouth 2 (two) times a day 180 tablet 3 4 Active potassium chloride ER (KLOR-CON) 20 mEq CR tablet Take 1 tablet (20 mEq total) by mouth with evening meal 7 tablet 1 4 Active amitriptyline (ELAVIL) 25 mg tabletIndication s:Type [...] EVERY DAY 90 tablet 2 4 Active dapagliflozin propanediol (FARXIGA) 10 mg [...] EARS TWICE DAILY NEEDED FOR FLARES Active semaglutide (OZEMPIC) 1 mg/dose (4 mg/3 mL) pen injector injection Inject 1 mg under the skin every 7 days 9 mL 3 5 Active bumetanide (BUMEX) 2 mg tabletIndication s:Chronic heart failure with preserved ejection fraction (HCC) Take 1 tablet (2 mg total) by mouth daily 90 tablet 2 5 Active doxycycline 100 mg capsule Take 1 tablet/capsule (100 mg total) by mouth 2 (two) times a day 025 Discontin ued(Patie nt Reported) Active Problems Problem Noted Date Diagnosed Date Cardiovascular stress test abnormal 02/24/2024 Benign paroxysmal positional vertigo of left ear 09/28/2023 Cervical myelopathy with cervical radiculopathy 06/30/2022 Cervical spondylosis with myelopathy 06/09/2022 Overview (06/09/2022): Added automatically from request for surgery [id number] Carotid stenosis, right 01/07/2022 Overview (01/07/2022): Added automatically from request for surgery [id number] Assessment & Plan (04/19/2023 1:00 PM JEWEL STRIPPER): Status post TCAR. Stent patent. Continue anti-platelet therapy follow-up 6 months. Assessment & Plan (03/12/2022 5:16 PM JEWEL STRIPPER): Impression: Patient is status post right TCAR. [...] (02/05/2020): Added automatically from request for surgery [id number] Hx of colonic polyps 10/10/2019 Overview (10/10/2019): Added automatically from request for surgery [id number] History of colon polyps 07/10/2019 Overview (07/10/2019): Added automatically from request for surgery [id number] Hypertension associated with diabetes 06/29/2019 Assessment & Plan (06/08/2024 2:36 PM JEWEL STRIPPER): Chronic problem, Controlled on metoprolol, Entresto, HCTZ, bumetanide, hydralazine, amlodipine. No changes. Assessment & Plan (04/19/2023 1:00 PM JEWEL STRIPPER): Hypertension chronic controlled. Continue current medical management [...] actual BMI) Coronary artery disease invo lving [place] coronary artery of [place] heart without angina pectoris 05/06/2015 Overview (08/07/2016): Coronary artery disease involving [place] coronary artery of [place] heart without angina pectoris Assessment & Plan (01/07/2022 3:00 PM CDT): Stable. Continue medical therapy. Mixed diabetic hyperlipidemi a associated with type 2 diabetes mellitus ([facility]) 05/06/2015 Overview (08/07/2016): Type 2 diabetes mellitus with complication Assessment & Plan (06/08/2024 2:36 PM JEWEL STRIPPER): Chronic problem. On statin therapy, no changes. Assessment & Plan (04/19/2023 1:00 PM JEWEL STRIPPER): Hyperlipidemia chronic and controlled. Continue current medical [...] complication Assessment & Plan (06/08/2024 2:37 PM JEWEL STRIPPER): Chronic problem, improving but not at goal. [...] on file Legal Sex Male 1:58 AM JEWEL STRIPPER Gender Identity Not on file Sexual Orientation Not on file Last Filed Vital Signs Vital Sign Reading Time Taken Comments Blood Pressure 118/62 08/23/2024 1:04 PM CDT Pulse 55 08/23/2024 1:04 PM CDT Temperature 36.7 C (98 F) 04/17/2024 7:04 AM JEWEL STRIPPER Respiratory Rate 18 06/08/2024 1:27 PM JEWEL STRIPPER Oxygen Saturation 93% 08/23/2024 1:04 PM CDT Inhaled Oxygen Concentration - - Weight 124.3 kg (274 lb) 08/23/2024 1:04 PM CDT Height 172.7 cm (5' 8 ) 08/23/2024 1:04 PM CDT Body Mass Index 41.66 08/23/2024 1:04 PM CDT Plan of Treatment Not on file Goals Goal Patient Goal Type Associated Problems Recent Progress Patient-Stated? Author CCM Chronic Pain Care Plan Chronic Care Management No change(04/14 11:08 AM JEWEL STRIPPER) No Pool Frey RN Note: Problem: Chronic Pain Goals: 1. Minimize further functional decline 2. Maximize quality of life 3. Control pain Strategies: - Activity/exercise program recommendation - Conservative stepwise pain medicine strategy with multi-disciplinary approach - Recommend healthy lifestyle strategies and compensatory methods as needed Medical Devices Implanted Type Area Ui Engineer Device Identifier Shelf Expiration Date Model / Serial / Lot Total Knee Left: Knee Medtronic Inc Resolute Ian 3mm 2.1-2.7fr 12mm 140cm Rapid Exchange Radiopaque [id number] - [id number] Implanted:Qty: 1 on 09/03/2021 by Bindu Goins MD at [facility] Medtronic Inc 06/11/2024 [id number] / / Medtronic Inc Resolute [place] 3.5mm 2.1-2.7fr 15mm 140cm Rapid Exchange [id number] - [id number] Implanted:Qty: 1 on 09/03/2021 by Bindu Goins MD at [facility] Medtronic Inc 04/04/2024 [id number] / / Angio-Seal Vip 6fr Closere Device [id number] - [id number] Implanted:Qty: 1 on 09/03/2021 by Bindu Goins MD at [facility] 06/02/2022 [id number] / / [employer] Enroute Uber Flex 8mm .065in 40mm 57cm Delivery System Angle Tip [id number] - [id number] Implanted:Qty: 1 on 01/29/2022 by Neeraj La MD at [facility] Right: Carotid Javelin Inc 08/30/2024 [id number] / / [id number] Matilde Biomet Inc 4.5mm 16mm Fix Screw Bone [id number] - [id number] Implanted:Qty: 3 on 06/30/2022 by Fredy Nguyen MD at [facility] N/A: Spine Cervical MATILDE BIOMET SP[employer] INC [id number] / / Musculoskeletal Transplant 12.3q04e7da Frozen Spine 7d Lordotic Trapezoid Spacer Allograft [id number] - [id number] - [id number] Implanted:Qty: 1 on 06/30/2022 by Fredy Nguyen MD at [facility] N/A: Spine Cervical Musculoskeletal Transplant [id number] 03/25/2025 [id number] / [id number] / Musculoskeletal Transplant 12.6l56r0wd Frozen Spine 7d Lordotic Trapezoid Spacer Allograft 088993 - [id number] - [id number] Implanted:Qty: 1 on 06/30/2022 by Fredy Nguyen MD at [facility] N/A: Spine Cervical Musculoskeletal Transplant [id number] 01/03/2025 [id number] / [id number] / Musculoskeletal Transplant 12.2y88m3js Frozen Spine 7d Lordotic Trapezoid Spacer Allograft 647624 - [id number] - [id number] Implanted:Qty: 1 on 06/30/2022 by Fredy Nguyen MD at [facility] N/A: Spine Cervical Musculoskeletal Transplant [id number] 04/26/2026 [id number] / [id number] / [employer] Inc C-Ervin Maxan 51mm Level 3 Fix Spine Cervical Anterior Plate Bone [id number] - [id number] Implanted:Qty: 1 on 06/30/2022 by Fredy Nguyen MD at [facility] N/A: Spine Cervical MATILDE [employer] SP[employer] INC [id number] 1 / / Matilde [employer] Inc 4mm 16mm Fix Screw Bone [id number] - [id number] Implanted:Qty: 5 on 06/30/2022 by Fredy Nguyen MD at [facility] N/A: Spine Cervical MATILDE [employer] SP[employer] INC [id number] 6 / / Access Closure Inc Device 10ml 5fr Closure Mynx Control 2 Mode Balloon Catheter [id number] - [id number] Implanted:Qty: 1 on 03/27/2024 by Nabil Jacobs MD at [facility] Access Closure Inc 01/18/2026 [id number] / / [id number] Medtronic Card Vasc Surgery 4.0 X 18mm [place] Pick[place] Rx Coronary Stent [id number] - [id number] Implanted:Qty: 1 on 04/17/2024 by Nabil Jacobs MD at [facility] Medtronic Card Vasc Surgery 12/26/2026 [id number] / / [id number] Access Closure Inc Mynx Control 6-7fr 2 Mode Balloon Catheter Sealant Lock Syringe [id number] - [id number] Implanted:Qty: 1 on 04/17/2024 by Nabil Jacobs MD at [facility] Access Closure Inc 01/05/2026 [id number] / / [id number] Procedures Procedure Name Priority Date/Time Associated Diagnosis Comments POCT GLUCOSE Routine 06/08/2024 1:18 PM JEWEL STRIPPER Type 2 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 disease, with long-term current use of insulin (HCC) POCT HEMOGLOBIN A1C Routine 06/08/2024 1 :18 PM JEWEL STRIPPER Type 2 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 disease, with long-term current use of insulin (HCC) ALBUMIN CREATININE RATIO, URINE Routine 06/08/2024 1:18 PM JEWEL STRIPPER Type 2 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 disease, with long-term current use of insulin ([facility]) POCT LIPID PANEL Routine 06/08/2024 1:18 AM JEWEL STRIPPER Type 2 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 disease, with long-term current use of insulin (HCC) HM CREATININE Routine 05/31/2024 12:52 PM JEWEL STRIPPER HEPATITIS C AB REFLEX RNA QUANT PCR Routine 06/14/2019 3:47 PM JEWEL STRIPPER COLONOSCOPY REPORT 05/18/2014 from Last 3 Months or Most Recently Relevant to Health Maintenance Results * (ABNORMAL) POCT hemoglobin A1c (06/08/2024 1:18 PM JEWEL STRIPPER) [facility] Hemoglobin A1C, POC 8.3 4.0 - 5.6 % Capillary blood 06/08/2024 1 :18 PM JEWEL STRIPPER Terra CRUZ POINT OF CARE TEST ORDE RABLES Final Result * (ABNORMAL) Albumin Creatinine Ratio, Urine (06/08/2024 1:18 PM JEWEL STRIPPER) [facility] Albumin Ur 68.0 mg/L Comment: Interpretive Data No reference range established. Current interpretive data was last revised 2018. Creatinine Ur 32.5 mg/dL JOSE MIGUEL BOWERS Comment: Interpretive Data No reference range established. Current interpretive data was last revised 2018. Albumin Creatinine Ratio, Ur 209(H) 1 - 29 mg/g JOSE MIGUEL BOWERS Urine 06/08/2024 1:18 PM JEWEL STRIPPER 06/08/2024 7:31 PM JEWEL STRIPPER Terra CRUZ LAB URINE ORDERABLES Fi nal Result JOSE MIGUEL BOWERS [address] Department [place] [address] * (ABNORMAL) POCT glucose (06/08/2024 1:18 PM JEWEL STRIPPER) Glucose Blood, POC 204 mg/dL Comment:PPG 2.5 Hrs Blood 06/08/2024 1:18 PM JEWEL STRIPPER Terra CRUZ POINT OF CARE TEST ORDE RABLES Final Result * (ABNORMAL) POCT lipid panel (06/08/2024 1:18 AM JEWEL STRIPPER) Cholesterol, POC 154 mg/dL HDL, POC 25 mg/dL Triglycerides, POC 271 mg/dL LDL Cholesterol POC 75 mg/dL Chol/HDL Ratio, POC 6.2 Non-HDL Cholesterol, POC 129 mg/dL Cholesterol Total, POC 154 mg/dL Capillary blood 06/08/2024 1 :18 AM JEWEL STRIPPER Terra CRUZ POINT OF CARE TEST ORDE RABLES Final Result * (ABNORMAL) HM CREATININE (05/31/2024 12:52 PM JEWEL STRIPPER) Pathologist [facility] SCRIBED Creatinine 2.16(A) 0.7 - 1.3 mg/dl EXTERNAL LAB SCRIBED eGFR in NonAfrican Libyan 30 >59 - NA EXTERNAL LAB Blood 05/31/2024 12:5 2 PM JEWEL STRIPPER Historical Provider HEALTH MAINTENANCE Edited Result - Final EXTERNAL LAB * Hepatitis C Antibody Reflex Hepatitis C RNA Quantitative PCR Blood (06/14/2019 3:47 PM JEWEL STRIPPER) Hep C Ab Negative Negative JOSE MIGUEL BOWERS Blood specimen (specimen) 06/14/2019 3:47 PM JEWEL STRIPPER 06/14/2019 8:03 PM JEWEL STRIPPER Notinfile Unknown LAB MICROBIOLOGY - GENERAL ORD ERABLES Final Result JOSE MIGUEL BOWERS [address] [address] Department [place] [address] * COLONOSCOPY REPORT (05/18/2014) Anatomical Region Laterality Modality Other Narrative 05/18/2014 Ordered by an unspecified provider. us Historical Provider GI PROCEDURE ORDERABLES F inal Result from Last 3 Months or Most Recently Relevant to Health Maintenance Insurance [employer]A [employer] MEDICARE PPO HUMANA CHOICE MEDICARE PPO HUMANA CHOICE MEDICARE PPO Advance Directives For more information, please contact: [phone] * Full Code (Latest Code Status on File) Date Activated Date Inactivated Comments 06/30/2022 6:44 PM 07/03/2022 5:32 PM * Full Code Date Activated Date Inactivated Comments 06/30/2022 6:39 PM 06/30/2022 6:44 PM * Full Code Date Activated Date Inactivated Comments 01/29/2022 2:14 PM 01/30/2022 6:06 PM * Full Code Date Activated Date Inactivated Comments 09/03/2021 12:10 PM 09/04/2021 7:37 PM Care Teams Agricultural Sciences Professor Relationship Specialty Start Date End Date Rafa Chavez DO [address] [facility] [address] [address] PCP - General Internal Medicine 06/01/24 Yfn Gill MD Referring Physician Nephrology 01/22/22 Aguila Chris MD Consulting Physician Cardiology 01/22/22 [place] [address] [address] Consulting Physician Endocrinology Diabetes & Metabolism 01/22/22 Neeraj La MD [address] [facility] [address] [address] Surgeon Vascular Surgery 01/30/22
--- OUTSIDE RECORDS SUMMARY | 2024-08-30 16:14 | XMS_ITS | Encounter Summary ---
Author Organization [facility] Address [address] [place] [address] Phone Care Team Providers Care Hose Suspender Cutter Name Role Phone Arnel Gonzalez MD Primary Care Provider [phone] Yfn Gill MD Unavailable [phone] Aguila Chris MD Unavailable [phone] Malcolm Castro MD Unavailable [phone] Neeraj La MD Unavailable [phone] Armand Howard RN Unavailable Unavaila August Hsu Primary Care Provider Miguel Torres DO Primary Care Provider [phone] Rafa Chavez DO Primary Care Provider [phone] Encounter Details Date Type Department Care Team [...] on file Legal Sex Male 1:58 AM SITE FOREMAN Gender Identity Not on file Sexual Orientation [...] COVID: Suspected 05/05/2022 05/05/2022 05/05/2022 12:26 PM SITE FOREMAN COVID: Suspected 05/05/2022 05/05/2022 05/05/2022 8:19 PM SITE FOREMAN COVID: Suspected 03/19/2024 03/19/2024 03/19/2024 3:22 AM SITE FOREMAN documented as of this encounter Care Teams Hose Suspender Cutter Relationship Specialty Start Date End Date Arnel Gonzalez MD [address] [address] PCP - General 07/19/13 07/05/23 August Triana PA [address] [place] [address] PCP - General Physician Car Cooper 07/06/23 01/16/24 Miguel Torres DO [address] [place] [address] PCP - General Internal Medicine 01/17/24 05/31/24 Rafa Chavez DO [address] [place] [address] PCP - General Internal Medicine 06/01/24 Yfn Gill MD [address] [facility] [address] [facility] [address] [place] [address] Referring Physician Nephrology 01/22/22 Aguila Chris MD [address] [facility] [address] [facility] [address] [place] [address] Consulting Physician Cardiology 01/22/22 [place] [address] [address] Consulting Physician Endocrinology Diabetes & Metabolism 01/22/22 Neeraj La MD [address] [facility] [address] [address] Surgeon Vascular Surgery 01/30/22 Armand Howard, RN Registered Nurse 06/30/22 07/02/22 documented as of this encounter
--- OUTSIDE RECORDS SUMMARY | 2024-08-30 16:14 | XMS_ITS | Clinical Summary ---
Author Organization [facility] Address [address] [facility] [place] [address] Care Team Providers Care Senior Engineering Manager Name Role Phone SabrinaArnel barbour Primary Care Provider [phone] Source Comments [facility],non-[facility] Affiliates and Associated Physician Practices is amultiple site organization consisting of ambulatory clinics and hospital sitesin [place], [place], [place] and [place]. This disclosure is being madepursuant to the Care Everywhere program and may not contain all information available regarding this patient. Last updated 18.[facility] Allergies Active Allergy Reactions Criticality Noted Date Comments Codeine Itching Medium 08/08/2013 Tramadol Unknown 10/18/2017 Medications * Be aware that medications may not be up to date on this document. Alwaysverify current medications with the patient. amLODIPine (NORVASC) 5 MG tablet Take 5 mg by mouth once daily 1 Active omeprazole (PRILOSEC) 20 MG capsule Take 20 mg by mouth once daily Active hydrALAZINE (APRESOLINE) 50 MG tablet Take 1 tablet by mouth 2 times daily 1 Active finasteride (PROSCAR) 5 MG tablet Take 5 mg by mouth once daily Active terazosin (HYTRIN) 10 MG capsule Take 10 mg by mouth once daily Active insulin aspart (NOVOLOG) vial Inject subcutaneously 2 times daily Active lisinopril (PRINIVIL; ZESTRIL) 20 MG tablet Take 1 tablet by mouth 2 times daily 1 Active rosuvastatin (CRESTOR) 10 MG tablet Take 10 mg by mouth once daily Active metoprolol tartrate (LOPRESSOR) 50 MG tablet Take 50 mg by mouth 2 times daily Active multivitamin daily tablet Take 1 tablet by mouth daily with food Active furosemide (LASIX) 40 MG tablet Take 1 tablet by mouth 2 times daily 1 Active allopurinol (ZYLOPRIM) 300 MG tablet Take 1 tablet by mouth once daily 0 Active aspirin EC (ECOTRIN) 81 MG tablet Take 81 mg by mouth once daily Active Alpha-Lipoic Acid 600 MG TABS Take 1 tablet by mouth once daily Active gabapentin (NEURONTIN) 300 MG capsule Take 1 capsule by mouth 5 times daily 1 Active vitamin D3 (CHOLECALCIFER OL) 25 MCG (1000 UNITS) tablet Take by mouth once daily Active pregabalin (LYRICA) 50 MG capsule Take 1 (one) capsule by mouth 3 times daily 90 capsule 5 2 Active Family History Medical History Relation Name Comments Cancer Brother Cancer Father Cancer Mother Cancer Sister Relation Name Status Comments Brother Father Mother Sister Social History Tobacco Use Types Packs/Day Years Used Date Smoking Tobacco: Former Smokeless Tobacco: Never Sex and Gender Information Value Date Recorded Sex Assigned at Not on file Legal Sex Male 5:50 AM BOX PACKER Gender Identity Not on file Sexual Orientation Not on file Last Filed Vital Signs Vital Sign Reading Time Taken Comments Blood Pressure 136/70 05/05/2021 1:09 PM BOX PACKER Pulse 76 05/05/2021 1:09 PM BOX PACKER Temperature - - Respiratory Rate 14 05/05/2021 1:09 PM BOX PACKER Oxygen Saturation 98% 05/05/2021 1:09 PM BOX PACKER Inhaled Oxygen Concentration - - Weight 121.1 kg (267 lb) 05/05/2021 1:09 PM BOX PACKER Height 172.7 cm (5' 8 ) 05/05/2021 1:09 PM BOX PACKER Body Mass Index 40.6 05/05/2021 1:09 PM BOX PACKER Plan of Treatment Health Maintenance Due Date Last Done Comments DTAP/TDAP/TD VACCINES (1 - Tdap) 11/26/1964 PNEUMOCOCCAL VACCINE 50+ (1 of 1 - PCV) 1994 ZOSTER VACCINE (1 of 2) 1994 Respiratory Syncytial Virus (RSV) Vaccine Pt: or over 60 yrs (1 - 1-dose 75+ series) 11/26/2019 COVID-19 VACCINE (2023-2 5 season) 2024 DEPRESSION SCREENING 05/03/2024 INFLUENZA VACCINE (Season Ended) 2025 02/26/2021, 03/03/2020, 01/31/2019 HEPATITIS B VACCINE Aged Out No longe [...] patient's age to complete this topic Insurance HUMANA Care Teams Senior Engineering Manager Relationship Specialty Start Date End Date Arnel Gonzalez DO [address] [facility] [address] [place], [place] [id number] PCP - General 01/03/21
--- OUTSIDE RECORDS SUMMARY | 2024-08-30 16:15 | XMS_ITS | Continuity of Care Document ---
Author Organization [facility] Address [address] [place] [address] Phone Care Team Providers Care Business Systems Lead Name Role Phone Zaheer Tom Unavailable Unavailable [...] Diagnoses Date Provider Providers Copied on Encounter Formerly [facility], [address], [place], [place], [id number], [place] tel:[phone] SEC [facility] No Information 0 Vaishali Schwab. [facility] [address], [address], [place]. tel:[phone] Referring Provider: Zaheer evans, [address] [address], [place], [address]. tel:[phone] Formerly [facility], [address], [place], [place], [id number], [place] tel:[phone] SEC [facility] No Information 3-201 0 Krishnasamy Zaheer. [address] [place], [place] [address]ate [place] [address], [place], [place], [facility], [place]. tel:[phone] [facility], [address], [place], [place], [id number], [place] tel:[phone] SEC [facility] No Information 200 [address] [employer]. [address] [facility] [address] [facility], [address], [place], [place], [id number], [place]. tel:[phone] Referring Provider: Zaheer evans, [address] [place], [place] [address]ate [facility] 102, [place], [place], [facility]. tel:[phone] sulting Provider: Leif Pineda, [address] [place] [address], [place], [place], [facility]. tel:[phone] [facility], [address] [place] [address] [address], [place], [place], [id number], [place] tel:[phone] SEC [facility] No Information 9 Krishnasamy Zaheer. [address] [place], [place] [address]ate [facility] 102, [place], [place], [facility], [place]. tel:[phone] Referring Provider: Zaheer evans, [address] [place], [place] [address]ate [facility] 102, [place], [place], [facility]. tel:[phone] [facility], [address] [place] [address] [address], [place], [place], [id number], [place] tel:[phone] SEC [facility] [place] No Information 200 9 Krishnasamy Zaheer. [address] [place], [place] [address]ate [facility] 102, [place], [place], [facility], [place]. tel:[phone] [facility], [address], [place], [place], [id number], [place] tel:[phone] SEC [facility] No Information 200 7 Juan Daniel Rios. [address] [facility], [address], [place], [place], [address], [place]. tel:[phone] Family History Family Member Type Diagnosis Age At Onset No Information Payers Payer name Insurance type Covered republican ID Authoriza tion(s) [place] [id number] Social History Type Description Quantity Date Captured [...]
--- OUTSIDE RECORDS SUMMARY | 2024-08-30 16:15 | XMS_ITS | Clinical Summary ---
Author Organization [facility] Address [address] [place] [address] Care Team Providers Care Senior Audit Manager Name Role Phone Yfn Gill MD Unavailable [phone] Aguila Chris MD Unavailable [phone] Malcolm Castro MD Unavailable [phone] Neeraj La MD Unavailable [phone] Rafa Chavez DO Primary Care Provider [phone] Allergies Active Allergy Reactions Criticality Noted Date [...] 1 tablet (300 mg total) by mouth diamond cleaver before breakfast 0 Active alpha lipoic acid [...] (06/09/2022): Added automatically from request for surgery [id number] Carotid stenosis, right 01/07/2022 Overview (01/07/2022): Added automatically from request for surgery [id number] Assessment & Plan (04/19/2023 1:00 PM FIRE CONTROL ASSISTANT): Status post TCAR. Stent patent. Continue anti-platelet therapy follow-up 6 months. Assessment & Plan (03/12/2022 5:16 PM FIRE CONTROL ASSISTANT): Impression: Patient is status post right TCAR. [...] (02/05/2020): Added automatically from request for surgery [id number] Hx of colonic polyps 10/10/2019 Overview (10/10/2019): Added automatically from request for surgery [id number] History of colon polyps 07/10/2019 Overview (07/10/2019): Added automatically from request for surgery [id number] Hypertension associated with diabetes 06/29/2019 Assessment & Plan (06/08/2024 2:36 PM FIRE CONTROL ASSISTANT): Chronic problem, Controlled on metoprolol, Entresto, HCTZ, bumetanide, hydralazine, amlodipine. No changes. Assessment & Plan (04/19/2023 1:00 PM FIRE CONTROL ASSISTANT): Hypertension chronic controlled. Continue current medical management [...] actual BMI) Coronary artery disease invo lving [place] coronary artery of [place] heart without angina pectoris 05/06/2015 Overview (08/07/2016): Coronary artery disease involving [place] coronary artery of [place] heart without angina pectoris Assessment & Plan (01/07/2022 3:00 PM CDT): Stable. Continue medical therapy. Mixed diabetic hyperlipidemi a associated with type 2 diabetes mellitus ([facility]) 05/06/2015 Overview (08/07/2016): Type 2 diabetes mellitus with complication Assessment & Plan (06/08/2024 2:36 PM FIRE CONTROL ASSISTANT): Chronic problem. On statin therapy, no changes. Assessment & Plan (04/19/2023 1:00 PM FIRE CONTROL ASSISTANT): Hyperlipidemia chronic and controlled. Continue current medical [...] complication Assessment & Plan (06/08/2024 2:37 PM FIRE CONTROL ASSISTANT): Chronic problem, improving but not at goal. [...] Description 08/23/2024 1:45 PM CDT Office Visit [facility] Cardiology [address] [place] [address] Nabil Jacobs MD Coronary artery disease involving [place] coronary artery of [place] heart without angina pectoris (Primary Dx); S/P angioplasty with stent; S/P CABG x 2; S/P aortic valve replacement with bioprosthetic valve; Chronic combined systolic and diastolic CHF (congestive heart failure) (HCC); Cardiomyopathy, ischemic; Hypertension associated with diabetes (HCC); Stage 3b chronic kidney disease (HCC); MARY on CPAP 06/13/2024 Orders Only [facility] Diabetes and Endocrinology [facility] [place] [address] ProviderNelson MD 06/08/2024 1:18 PM FIRE CONTROL ASSISTANT - 06/08/2024 11:59 PM FIRE CONTROL ASSISTANT Hospital Encounter [facility] [address] [place] [address] Type 2 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 disease, with long-term current use of insulin (HCC) Discharge Disposition: Discharge to home or self care 06/08/2024 1:15 PM FIRE CONTROL ASSISTANT Office Visit [facility] [address] [place] [address] [place] [address] Terra Joiner PA Type 2 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 disease, with long-term current use of insulin (HCC) (Primary Dx); Hypertension associated with diabetes (HCC); Mixed diabetic hyperlipidemia associated with type 2 diabetes mellitus (CMS/HCC) (HCC) 06/02/2024 1:00 PM FIRE CONTROL ASSISTANT Office Visit [facility] Cardiology [address] [place] [address] Malu Solomon NP Edema, lower extremity (Primary Dx); Chronic combined systolic and diastolic CHF (congestive heart failure) (HCC); Stage 3b chronic kidney disease (HCC) 06/01/2024 Telephone [facility] Cardiology [address] [place] [address] Nabil Jacobs MD from Last [...] eye blindness CHF (congestive heart failur e) ([facility]) Pneumonia 10/21/2021 hospitalized at [facility] with PNA, JUANITA and CHF Cancer (HCC) [...] History Medical History Relation Name Comments Cancer Brothadam Font[place] Cancer Father Maged Celeste Early Father Maged Celeste Cancer COD Cancer Mother Cyndie Burrisio Chronic Pain Mother Cyndie Celeste Diabetes Mother Cyndie Burrisio Heart attack Mother Cyndie Cicio Heart disease Mother Cyndie Fatumaio Hypertension Mother Cyndie Cicio Chronic Pain Other [...] on file Legal Sex Male 1:58 AM FIRE CONTROL ASSISTANT Gender Identity Not on file Sexual Orientation Not on file Obstetrics History Last Filed Vital Signs Vital Sign Reading Time Taken Comments Blood Pressure 118/62 08/23/2024 1:04 PM CDT Pulse 55 08/23/2024 1:04 PM CDT Temperature 36.7 C (98 F) 04/17/2024 7:04 AM FIRE CONTROL ASSISTANT Respiratory Rate 18 06/08/2024 1:27 PM FIRE CONTROL ASSISTANT Oxygen Saturation 93% 08/23/2024 1:04 PM CDT Inhaled Oxygen Concentration - - Weight 124.3 kg (274 lb) 08/23/2024 1:04 PM CDT Height 172.7 cm (5' 8 ) 08/23/2024 1:04 PM CDT Body Mass Index 41.66 08/23/2024 1:04 PM CDT Plan of Treatment Health Maintenance [...] 2024 02/24/2022, 03/11/2021, 07/23/2020, Additional history exists Hemoglobin A1C 12/06/2024 06/08/2024, 09/01, 06/18/2022, Additional history exists Influenza Vaccine (Season Ended) 2025 03/11/2023, 03/11/2023, 02/24/2022, Additional history exists Fall Risk Assessment 04/17/2025 [...] Chronic Care Management No change(04/14 11:08 AM FIRE CONTROL ASSISTANT) No Pool Frey RN Note: Problem: Chronic Pain Goals: 1. Minimize further functional decline 2. Maximize quality of life 3. Control pain Strategies: - Activity/exercise program recommendation - Conservative stepwise pain medicine strategy with multi-disciplinary approach - Recommend healthy lifestyle strategies and compensatory methods as needed Medical Devices Implanted Type Area Fitness Instructor Device Identifier Shelf Expiration Date Model / Serial / Lot Total Knee Left: Knee Medtronic Inc Resolute Delavan 3mm 2.1-2.7fr 12mm 140cm Rapid Exchange Radiopaque [id number] - [id number] Implanted:Qty: 1 on 09/03/2021 by Bindu Goins MD at [facility] Medtronic Inc 06/11/2024 [id number] / / Medtronic Inc Resolute Ian 3.5mm 2.1-2.7fr 15mm 140cm Rapid Exchange [id number] - [id number] Implanted:Qty: 1 on 09/03/2021 by Bindu Goins MD at [facility] Medtronic Inc 04/04/2024 [id number] / / Angio-Seal Vip 6fr Closere Device [id number] - [id number] Implanted:Qty: 1 on 09/03/2021 by Bindu Goins MD at [facility] [employer] Miya 06/02/2022 [id number] / / v[employer] Inc Enroute Uber Flex 8mm .065in 40mm 57cm Delivery System Angle Tip [id number] - [id number] Implanted:Qty: 1 on 01/29/2022 by Neeraj La MD at [facility] Right: Carotid [employer] Inc 08/30/2024 [id number] / / [id number] Matilde [employer] Inc 4.5mm 16mm Fix Screw Bone [id number] - [id number] Implanted:Qty: 3 on 06/30/2022 by Fredy Nguyen MD at [facility] N/A: Spine Cervical MATILDE BIOMET SP[employer] INC [id number] 6 / / Musculoskeletal Transplant 12.2s54q0cu Frozen Spine 7d Lordotic Trapezoid Spacer Allograft [id number] - [id number] - [id number] Implanted:Qty: 1 on 06/30/2022 by Fredy Nguyen MD at [facility] N/A: Spine Cervical Musculoskeletal Transplant [id number] 03/25/2025 [id number] / [id number] / Musculoskeletal Transplant 12.7y75r4tu Frozen Spine 7d Lordotic Trapezoid Spacer Allograft 126407 - [id number] - [id number] Implanted:Qty: 1 on 06/30/2022 by Fredy Nguyen MD at [facility] N/A: Spine Cervical Musculoskeletal Transplant [id number] 01/03/2025 [id number] / [id number] / Musculoskeletal Transplant 12.1e74n6df Frozen Spine 7d Lordotic Trapezoid Spacer Allograft 324406 - [id number] - [id number] Implanted:Qty: 1 on 06/30/2022 by Fredy Nguyen MD at [facility] N/A: Spine Cervical Musculoskeletal Transplant [id number] 04/26/2026 [id number] / [id number] / [employer]ilde [employer] Inc C-Ervin Maxan 51mm Level 3 Fix Spine Cervical Anterior Plate Bone 14-790301 - [id number] Implanted:Qty: 1 on 06/30/2022 by Fredy Nguyen MD at [facility] N/A: Spine Cervical [employer]IL[employer] [id number] / / Matilde [employer] Inc 4mm 16mm Fix Screw Bone [id number] - [id number] Implanted:Qty: 5 on 06/30/2022 by Fredy Nguyen MD at [facility] N/A: Spine Cervical MATILDE [employer] SP[employer] INC [id number] 6 / / Access Closure Inc Device 10ml 5fr Closure Mynx Control 2 Mode Balloon Catheter [id number] - [id number] Implanted:Qty: 1 on 03/27/2024 by Nabil Jacobs MD at [facility] Access [employer]osure Inc 01/18/2026 [id number] / / [id number] Medtronic [facility] Vasc Surgery 4.0 X 18mm Delavan Stephenson Rx Coronary Stent [id number] - [id number] Implanted:Qty: 1 on 04/17/2024 by Nabil Jacobs MD at [facility] Medtronic Card Vasc Surgery 12/26/2026 [id number] / / [id number] Access Closure Inc Mynx Control 6-7fr 2 Mode Balloon Catheter Sealant Lock Syringe [id number] - [id number] Implanted:Qty: 1 on 04/17/2024 by Nabil Jacobs MD at [facility] Access [employer] Inc 01/05/2026 [id number] / / [id number] Procedures Procedure Name Priority Date/Time Associated Diagnosis Comments POCT GLUCOSE Routine 06/08/2024 1:18 PM FIRE CONTROL ASSISTANT Type 2 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 disease, with long-term current use of insulin (HCC) POCT HEMOGLOBIN A1C Routine 06/08/2024 1 :18 PM FIRE CONTROL ASSISTANT Type 2 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 disease, with long-term current use of insulin (HCC) ALBUMIN CREATININE RATIO, URINE Routine 06/08/2024 1:18 PM FIRE CONTROL ASSISTANT Type 2 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 disease, with long-term current use of insulin (HCC) POCT LIPID PANEL Routine 06/08/2024 1:18 AM FIRE CONTROL ASSISTANT Type 2 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 disease, with long-term current use of insulin (HCC) HM CREATININE Routine 05/31/2024 12:52 PM FIRE CONTROL ASSISTANT HEPATITIS C AB REFLEX RNA QUANT PCR Routine 06/14/2019 3:47 PM FIRE CONTROL ASSISTANT COLONOSCOPY REPORT 05/18/2014 from Last 3 Months or Most Recently Relevant to Health Maintenance Results * (ABNORMAL) POCT hemoglobin A1c (06/08/2024 1:18 PM FIRE CONTROL ASSISTANT) Pathologist [facility] Hemoglobin A1C, POC 8.3 4.0 - 5.6 % Capillary blood 06/08/2024 1 :18 PM FIRE CONTROL ASSISTANT Terra CRUZ POINT OF CARE TEST ORDE RABLES Final Result * (ABNORMAL) Albumin Creatinine Ratio, Urine (06/08/2024 1:18 PM FIRE CONTROL ASSISTANT) [facility] Albumin Ur 68.0 mg/L Comment: Interpretive Data No reference range established. Current interpretive data was last revised 2018. Creatinine Ur 32.5 mg/dL JOSE MIGUEL Comment: Interpretive Data No reference range established. Current interpretive data was last revised 2018. Albumin Creatinine Ratio, Ur 209(H) 1 - 29 mg/g JOSE MIGUEL Urine 06/08/2024 1:18 PM FIRE CONTROL ASSISTANT 06/08/2024 7:31 PM FIRE CONTROL ASSISTANT Terra CRUZ LAB URINE ORDERABLES Fi nal Result JOSE MIGUEL [id number] [address] Department [place] [address] * (ABNORMAL) POCT glucose (06/08/2024 1:18 PM FIRE CONTROL ASSISTANT) [facility] Glucose Blood, POC 204 mg/dL Comment:PPG 2.5 Hrs Blood 06/08/2024 1:18 PM FIRE CONTROL ASSISTANT Terra CRUZ POINT OF CARE TEST ORDE RABLES Final Result * (ABNORMAL) POCT lipid panel (06/08/2024 1:18 AM FIRE CONTROL ASSISTANT) [facility] Cholesterol, POC 154 mg/dL HDL, POC 25 mg/dL Triglycerides, POC 271 mg/dL LDL Cholesterol POC 75 mg/dL Chol/HDL Ratio, POC 6.2 Non-HDL Cholesterol, POC 129 mg/dL Cholesterol Total, POC 154 mg/dL Capillary blood 06/08/2024 1 :18 AM FIRE CONTROL ASSISTANT Terra CRUZ POINT OF CARE TEST ORDE RABLES Final Result * (ABNORMAL) HM CREATININE (05/31/2024 12:52 PM FIRE CONTROL ASSISTANT) SCRIBED Creatinine 2.16(A) 0.7 - 1.3 mg/dl EXTERNAL LAB SCRIBED eGFR in NonAfrican Northern Irish 30 >59 - NA EXTERNAL LAB Blood 05/31/2024 12:5 2 PM FIRE CONTROL ASSISTANT Historical Provider HEALTH MAINTENANCE Edited Result - Final EXTERNAL LAB * Hepatitis C Antibody Reflex Hepatitis C RNA Quantitative PCR Blood (06/14/2019 3:47 PM FIRE CONTROL ASSISTANT) Hep C Ab Negative Negative JOSE MIGUEL Blood specimen (specimen) 06/14/2019 3:47 PM FIRE CONTROL ASSISTANT 06/14/2019 8:03 PM FIRE CONTROL ASSISTANT Notinfile Unknown LAB MICROBIOLOGY - GENERAL ORD ERABLES Final Result JOSE MIGUEL [id number] [address]uro Department [place] [address] * COLONOSCOPY REPORT (05/18/2014) Anatomical Region Laterality Modality Other Narrative 05/18/2014 Ordered by an unspecified provider. Historical Provider GI PROCEDURE ORDERABLES F inal Result from Last 3 Months or Most Recently Relevant to Health Maintenance Insurance [employer] CHOICE MEDICARE PPO HU[employer] CHOICE MEDICARE PPO Advance Directives For more information, please contact: [phone] * Full Code (Latest Code Status on File) Date Activated Date Inactivated Comments 06/30/2022 6:44 PM 07/03/2022 5:32 PM * Full Code Date Activated Date Inactivated Comments 06/30/2022 6:39 PM 06/30/2022 6:44 PM * Full Code Date Activated Date Inactivated Comments 01/29/2022 2:14 PM 01/30/2022 6:06 PM * Full Code Date Activated Date Inactivated Comments 09/03/2021 12:10 PM 09/04/2021 7:37 PM Care Teams Senior Audit Manager Relationship Specialty Start Date End Date Rafa Chavez DO [address] [facility] [place] [address] PCP - General Internal Medicine 06/01/24 Yfn Gill MD Referring Physician Nephrology 01/22/22 Aguila Chris MD Consulting Physician Cardiology 01/22/22 [place] [address] [address] Consulting Physician Endocrinology Diabetes & Metabolism 01/22/22 Neeraj La MD [address] [facility] [place] [address] Surgeon Vascular Surgery 01/30/22
--- OUTSIDE RECORDS SUMMARY | 2024-08-30 16:15 | XMS_ITS | Clinical Summary ---
Author Organization [facility] Address [address] [place] [address] Phone Care Team Providers Care Slip Seat Coverer Name Role Phone Arnel Gonzalez DO Primary Care Provider [phone] Allergies Active Allergy Reactions Criticality Noted Date Comments Codeine Itching Medium 08/08/2013 Tramadol 10/18/2017 Medications aspirin EC 81 MG EC tablet Take [...] MG capsule 10 mg 11/02/2012 Active lisinopril (PRINIVIL,ZESTR IL) 20 MG tablet Take 20 mg by mouth 2 (two) times a day Active ACCU-CHEK SHAYY PLUS test strip 11/06/2019 Act brenda Accu-Chek Softclix Lancets lancets 08/25/2019 Act brenda NOVOLOG MIX 70/30 FLEXPEN (70-30) 100 UNIT/ML injection 10/16/2019 Active hydrALAZINE (APRESOLINE) 50 MG tablet 09/20/2019 Active allopurinol (ZYLOPRIM) 300 MG tablet 04/14/2020 Active Droplet Pen Arvilla 31G X 5 MM misc 07/28/2020 Active [...] each day 1 with biggest meal Active hydroCHLOROthia zide (HYDRODIURIL) 25 MG tablet Take 1 tablet (25 mg total) by mouth 1 (one) time each day 30 tablet 11 12/22/2021 Active ergocalciferol (VITAMIN D2) 1.25 MG (43480 UT) capsule TAKE ONE CAPSULE BY MOUTH [...] diabetes mellitus with complication Coronary arteriosclerosis in [place] artery 01/29 Overview (03/06/2019): CAD (coronary artery disease) Coronary artery disease involving [place] coronary artery of [place] heart without angina pectoris Coronary atherosclerosis 01/29/2015 Overview (08/30/2020): CAD (coronary artery disease) Coronary artery disease involving [place] coronary artery of [place] heart without angina pectoris H/O: artificial heart valve 12/27/2013 Overview (03/06/2019): S/P aortic valve replacement with bioprosthetic valve Aortic valve stenosis 10/19/2013 Pure hypercholesterolemia 12/18/2009 Obstructive sleep apnea 12/18/2009 Resolved Problems Problem Noted Date Diagnosed Date Resolved Date Nonspecific abnormal results of function study of kidney 03/06/2019 08/30/2020 Immunizations Immunization Administration Dates Next Due Influenza TIV (IM) [...] at Not on file Legal Sex Male 1:11 PM MDT Gender Identity Not on file Sexual Orientation [...] and Medium Risk (2 of 3 - PPSV23) 01/31/2018 01/31/2017 COVID-19 Vaccine ( - 2023-2 5 season) 2024 03/11/2021 Influenza Vaccine (Season Ended) 2025 02/26/2021, 03/03/2020, 02/01/2020, Additional history exists Insurance MEDICARE ADVANTAGE Care Teams Slip Seat Coverer Relationship Specialty Start Date End Date Arnel Gonzalez DO [address] [place] [address] PCP - General Internal Medicine 01/31/19
--- OUTSIDE RECORDS SUMMARY | 2024-08-30 16:15 | XMS_ITS | Data Portability ---
Author Organization [facility] [employer], Main Office Address [address] [place] [address] Care Team Providers Care Siphon Operator Name Role Phone HOLDEN CAIN Primary Care Provider HOLDEN CAIN Referring Provider [phone] Assessment Encounter Date Assessment Date Assessment LastModified by Organization Details LastModified Time 01/27/2024 01/27/2024 This note is dictated and transcribed by [employer]. [employer] Making Machine Operator variances may occur. Despite proofreading, typographical errors may occur. Occasional wrong-word or 'ybcls-r-pxpl' substitutions may have occurred due to the inherent limitations of voice recording. Read the chart carefully and recognize, using context, where substitutions have occurred. Not available 01/27/2024 14:32:20 05/11/2024 05/11/2024 This note is dictated and transcribed by [employer]. Cig[employer] Making Machine Operator variances may occur. Despite proofreading, typographical errors may occur. Occasional wrong-word or 'bsnzv-s-ruqm' substitutions may have occurred due to the inherent limitations of voice recording. Read the chart carefully and recognize, using context, where substitutions have occurred. Not available 05/11/2024 16:20:38 08/07/2024 08/07/2024 This note is dictated and transcribed by [employer]. C[employer] Making Machine Operator variances may occur. Despite proofreading, typographical errors may occur. Occasional wrong-word or 'yrzjn-b-rihd' substitutions may have occurred due to the inherent limitations of voice recording. Read the chart carefully and recognize, using context, where substitutions have occurred. Not available 08/07/2024 16:35:43 Plan of Treatment Reminders Order Date Submit Date Provider Last Modified By Organization Details Last Modified Time Details Appointments Establish ed Patient 15 2024 03:00P Barbra Cardoso DPM Not available Not available Not available Lab None recorded. Referral None recorded. Procedures None recorded. Surgeries None recorded. Imaging None recorded. Medication Orders triamcino lone acetonide 0.1 % topical cream 2024 025 [facility] Mail Delivery, [address], [place], [address], 08/07/2024 16:35:20 ammonium lactate 12 % lotion 2022 023 [facility] #[id number], [address], [place], [address], 03/30/2023 15:16:36 Patient TargetsNo targets recorded. Patient Instructions Encounter Date Encounter Id Patient Instructions Last Modified By Organization Details Last Modified Time 05/11/2024 [id number] diabetic foot care education Not available 05/11/2024 16:21:28 Reason for Referral None Reported. Problems Name Problem SNOMED Code Status Onset Date Resolution Date Notes Provider Name and Address Organization Details Recorded Time Arthritis 6010228 Active 2022 Yovana crooks [facility] 3 14:52:19 Diabetes mellitus 30356383 Active 2022 Yovana crooks [facility] 3 14:52:25 Ear problem 110269247 Active 2022 Yovana crooks [facility] 3 14:52:32 Disorder of eye 578482571 Active 2022 Yovana crooks [facility] 3 14:52:40 Heart disease 15952773 Active 2022 Yovana crooks [facility] 3 14:52:46 Hyperchole sterolemia 86956270 Active 2022 Yovana crooks [facility] 3 14:52:56 Kidney disease 45155415 Active 2022 Yovana crooks [facility] 3 14:53:05 Obesity 464273329 Active 2022 Yovana crooks, [facility] 3 14:53:12 Sleep disorder 51358780 Active 2022 Yovana crooks, [facility] 3 14:53:29 Dystrophia unguium 17364108 Active 2022 Merrick Cardoso DPM [address], [address], [place], [address] , [facility] 3 15:14:00 Acquired hallux limitus of right great toe 6552209360625 100 Active 2022 Merrick Cardoso DPM [address], [address], [place], [address] , [facility] 3 15:14:44 Foot callus 241785715 Active 2022 Merrick Cardoso DPM [address], [address], [place], [address] , [facility] 3 15:15:32 Fissure in skin 75427533 Active 2022 Merrick Cardoso DPM [address], [address], [place], [address] , [facility] 3 15:15:39 Edema of lower extremity 917598311 Active 2024 Merrick Cardoso DPM [address], [address], [place], [address] , [facility] 5 16:21:15 Severe dry skin 354390360 Active 2024 Merrick Cardoso DPM [address], [address], [place], [address] , [facility] 5 16:34:39 Notes:back/neck problem, pro state, urinary/bladder/kidney problems, use of blood thinners Problem Notes None recorded. Procedures Surgical History Date Name Laterality Status Provider Name and Address Organization Details Recorded Time 01/27/20 24 Nail Debridement completed Merrick Cardoso DPM [address], [address], [place], [address], [facility] [place] [employer] [facility] 01/27/2024 14:31:56 01/12/20 23 Nail Debridement completed Merrick Cardoso DPM [address], [place], [address], [facility] [place] [employer] [facility] 01/11/2023 15:13:45 Knee Surgery completed Not Available [facility] 07/01/2022 13:12:58 procedure on heart completed Not Available [facility] 07/01/2022 13:12:58 procedure on urinary bladder completed Not Available [facility] 07/01/2022 13:12:58 Imaging Results None recorded. Procedure Notes None recorded. Medical Equipment None Reported. Allergies Allergen ID Allergen Name Allergen Category Reaction Reaction Severity Criticality Documentation Date Start Date Code Code System Note Provider Name and Address Organization Details Recorded Time 97545 codeine medicatio n itching Not available Not available 07/01/2022 2670 RxNorm Not Available [facility] 13:15:32 Medications Name Sig Start Date Stop [...] completed Not Available Not Available Not Available triamcinolo ne acetonide 0.1 % topical cream Apply 1 applicati on twice a day by topical route for 30 days, for dry skin. 2024 active Not Available Not Available Not Avai lable spironolact one 25 mg tablet 01/11 completed [...] 875 mg-potassiu m clavulanate 125 mg tablet TAKE 1 TABLET BY MOUTH EVERY 12 HOURS active Not Available Not Available No t Available amoxicillin 500 mg-potassiu m clavulanate 125 mg tablet TAKE 1 TABLET BY MOUTH EVERY 12 HOURS active Not Available Not Available No t Available oxycodone 5 mg tablet 01/11 completed [...] mg-100 mg tablets in a dose pack (Moderate Renal Dose) 07/05 completed Not Available Not Available [...] Updated DateTime 3 172.72 cm 39.5 kg/m2 220255. 02 g 99 /min 14 /min 97 % 97 % 143 mm[Hg] 73 mm[Hg] Marta LAMB - [place] [employer] [facility] 3 14:38:18 Date Recorded Body height Body mass index (BMI) Body weight Heart rate Respiratory rate Oxygen saturation Oxygen saturation in Arterial blood by Pulse oximetry Systolic blood pressure Diastolic blood pressure Provider Name and Address Organization Details Last Updated DateTime 4 172.72 cm 39.5 kg/m2 152499. 02 g 96 /min 14 /min 98 % 98 % 163 mm[Hg] 77 mm[Hg] Marta Reinaldo [facility] [employer] [facility] 4 16:40:20 Date Recorded Body height Body mass index (BMI) Body weight Heart rate Respiratory rate Oxygen saturation Oxygen saturation in Arterial blood by Pulse oximetry Systolic blood pressure Diastolic blood pressure Provider Name and Address Organization Details Last Updated DateTime 4 172.72 cm 39.5 kg/m2 038422. 02 g 85 /min 14 /min 98 % 98 % 137 mm[Hg] 75 mm[Hg] Marta Najera [facility] [employer] [facility] 4 14:11:03 Date Recorded Body height Body mass index (BMI) Body weight Heart rate Respiratory rate Oxygen saturation Oxygen saturation in Arterial blood by Pulse oximetry Systolic blood pressure Diastolic blood pressure Provider Name and Address Organization Details Last Updated DateTime 5 172.72 cm 39.5 kg/m2 810168. 02 g 102 /min 16 /min 97 % 97 % 126 mm[Hg] 66 mm[Hg] Marta Najera [facility] [employer] [facility] 5 15:19:04 Date Recorded Body height Body mass index (BMI) Body weight Heart rate Respiratory rate Body temperature Oxygen saturation Oxygen saturation in Arterial blood by Pulse oximetry Systolic blood pressure Diastolic blood pressure Provider Name and Address Organization Details Last Updated DateTime 5 172.72 cm 39.5 kg/m2 977664. 02 g 87 /min 18 /min 97.6 [degF] 97 % 97 % 120 mm[Hg] 80 mm[Hg] Deanna Navarrete [facility] [employer] [facility] 5 16:07:45 Social History Question Answer Notes LastModified by Organizat ion Details LastModified Time Tobacco Smoking Status Former Smoker Yovana crooks, [facility] [employer] [facility] 01/11/2023 14:55:43 What Is Your Level Of Alcohol Consumption? None [email or web address] Information not available 01/11/2023 Sex: Unknown Functional Status None recorded. Mental Status None recorded. Family History Relationship Description Onset Age of this Age Resolved Age Notes LastModified by Organization Details LastModified Time Unspecified Relation Hypertensive disorder [id number] Not available 07/01/2022 13:12:59 Unspecified Relation Diabetes mellitus [id number] Not available 07/01/2022 13:12:59 Unspecified Relation Kidney disease [id number] Not available 07/01/2022 13:12:59 Unspecified Relation Arthritis [email or web address] Not available 023 14:55:21 Medical History Condition Response BLINDNESS N KIDNEY STONES Y MRSA N CARPAL TUNNEL SYNDROME N LUNG DISEASE/DISORDER N HISTORY OF DRUG ABUSE N RADIATION / CHEMOTHERAPY N COPD N SPORTS INJURY N ANKLE PAIN N BLOOD DISEASES N SCHIZOPHRENIA N SHINGLES N SHOULDER PAIN N DEPRESSION (INCLUDING POST ) N BOWEL PROBLEMS N STROKE/TIA N ULCERS N KNEE PAIN [...] N NEUROPATHY N AIDS/HIV N FRACTURES N HYPERTENSION Y ELBOW PAIN N TOURETTE'S N Metal allergy N ANXIETY DISORDER N BLOOD TRANSFUSION N ANEMIA/BLOOD DISORDER N BIPOLAR DISORDER N BRONCHITIS N OSTEOARTHRITIS N TUBERCULOSIS N FOOT PROBLEM N HEART VALVE DISORDERS N ALLERGIES/HAYFEVER N SOFT TISSUE INJURY N INFECTIOUS DISEASE N HEART ARRHYTHMIA N INSOMNIA N HIGH CHOLESTEROL / HYPERLIPIDEMIA Y RHEUMATOID ARTHRITIS N EDEMA N CHRONIC PAIN SYNDROME N CAROTID BLOCKAGE N BACK / NECK PROBLEMS Y HAVE YOU BEEN HOSPITALIZED OR SEEN IN [facility] IN THE PAST YEAR ? N BURSITIS N HERNIATED DISC N DIALYSIS N FIBROMYALGIA N OSTEOPOROSIS N ARTHRITIS Y NO SIGNIFICANT PAST MEDICAL HISTORY N PERIPHERAL NEUROPATHY N DIABETES, TYPE Y HEARTBURN / REFLUX N HEPATITIS / LIVER DISEASE N GOUT N ALZHEIMER'S DISEASE N SLEEP DISORDER Y HERPES N HEADACHES/MIGRAINES N SEIZURES/EPILEPSY N VASCULAR DISEASE N Blood Disorder N HIP PAIN N DIZZINESS N HEAD TRAUMA OR INJURY N HEART DISEASE/HEART PROBLEMS Y MULTIPLE SCLEROSIS N CANCER: SPECIFY Y CARDIAC ARRHYTHMIA N ANESTHESIA COMPLICATIONS N ATRIAL FIBRILLATION N AUTOIMMUNE DISEASE N Past Encounters Encounter ID Performer Location Encounter Start Date Encounter Closed Date Diagnosis/Indication Diagnosis SNOMED-CT Code Diagnosis ICD10 Code Diagnosis Note [id number] Gorge Griffin MD [facility] [address] [address] 02/13/2021 00:00:00 02/13/2021 11:18:11 [id number] Merrick Cardoso DPM [facility] [place] [address] [place] [address] 01/11/2023 14:37:23 01/20/2023 11:58:11 Diabetes mellitus 95592124 E11.40 Patient educated on neuropathy , diabetes, diabetic diet, and daily foot exams. Patient is to check feet daily for new wounds, blisters, redness to prevent infection and ulceration s to the feet. Patient will return to clinic in 3 months for diabetic foot workup. Dystrophia unguium 39750 009 L60.3 left great toenailDeb rided without incident follow-up as needed Acquired h allux limitus of right great toe 0306276142 138392 M20.5X1 educated on conditionC ontinue supportive shoe gearRange of motion exercises dailyRice therapyFol low-up as needed [id number] Merrick Cardoso DPM [facility] [place] [address] [address] 03/30/2023 14:22:28 04/02/2023 09:27:28 Foot callus 755783551 L84 right footuse p[place] dailyfollo w up as needed Fissure in skin 59846794 R23.4 keep area cleancont DM insolesmay require more support to prevent sheering in shoes [id number] Merrick Cardoso DPM [facility] [place] [address] [address] 07/06/2023 16:36:52 07/07/2023 13:50:23 Foot callus 178296189 L84 resolvedus e pumas stone dailyno further paincont supportive shoefollow up as needed [id number] Merrick Cardoso DPM [facility] [place] [address] [place] [address] 01/27/2024 13:57:23 01/27/2024 14:38:22 Diabetes mellitus 70621994 E11.40 continue diabetic control per PCP recommenda tion Acquired h allux limitus of right great toe 6224200436 133621 M20.5X1 educated on conditionC ontinue supportive shoe gearRange of motion exercises dailyRice therapywil l monitor Dystrophia unguium 51612 009 L60.3 left great toenailtoe nails debrided without incident [id number] Merrick Cardoso DPM [facility] [place] [address] [place] [address] 05/11/2024 15:12:23 05/16/2024 15:30:57 Diabetes mellitus 92319914 E11.40 continue diabetic control per PCP recommenda tionrecomm end supportive shoe gearCheck foot daily for wounds infectionF ollow-up in 3 months for diabetic foot care Edema of l ower extremity 434013120 R60.0 recommend chronic compressio n stockings bilateral lower extremityW hen at rest elevate legsLow-so dium diet [id number] Merrick Cardoso DPM [facility] [place] [address] [place] [address] 08/07/2024 15:38:52 08/21/2024 10:51:48 Fissure in skin 48956859 R23.4 keep area cleancont DM insolesmay require more support to prevent sheering in shoesfollo w-up 1 week if not healed Severe dry skin 84036116 2 L85.3 right plantar foot Health Concerns Section Related Observation LastModified by Organization Detai ls LastModified Time None Recorded Concern Status LastModified by Organization Details LastModified Time None Recorded Advance Directives Directive None Recorded Payers Encounter Date Sequence Insurance Name Policy Number Policy Fraga Covered Member ID Fraga Member ID Guarantor Name 03/30/2023 1 [employer] (MEDICARE REPLACEMENT/A DVANTAGE - PPO) Gabriel Celeste [id number] Gabriel Celeste 07/06/2023 1 [employer] (MEDICARE REPLACEMENT/A DVANTAGE - PPO) Gabriel Celeste [id number] Gabriel Celeste 01/27/2024 1 [employer] (MEDICARE REPLACEMENT/A DVANTAGE - PPO) Gabriel Celeste [id number] Gabriel Celeste 05/11/2024 1 [employer] (MEDICARE REPLACEMENT/A DVANTAGE - PPO) Gabriel Celeste [id number] Gabriel Celeste 08/07/2024 1 [employer] (MEDICARE REPLACEMENT/A DVANTAGE - PPO) Gabriel Celeste [id number] Gabriel Celeste Notes Date Note Type Note Provider Name and Address Organization Details Recorded Time 3 text/html Patient is a 77 yr old male who presents for callus to the plantar foot. Patient denies any wounds. Patient denies any other pedal complaints. Merrick Cardoso DPM [address], [place], [address], [employer] 04/02/2023 09:14:24 4 text/html Patient follows up for callus, he states with proper shoe gear and use of pumas stone he no longer has pain or the callus. Denies any new complaints. Merrick Cardoso DPM [address], [place], [address], [employer] 07/07/2023 10:04:27 4 text/html . Patient is a 78-year-old male who returns the office for diabetic foot care. Patient denies any open wounds or infection. Patient denies any pain at the arthritic 1st metatarsophalangeal joint states he continues to walk with a cane is not very active. Patient denies any other complaints would like his nails cut. Merrick Cardoso DPM [address], [place], [address], [employer] 01/27/2024 14:33:25 5 text/html . Patient is a 78-year-old male diabetic who returns the office for routine diabetic foot care. Patient states overall he is doing well denies any wounds or infection of the feet. Patient does have swelling of his lower extremities that is pudj-tw-mlomotgl in nature he denies any calf pain or open wounds to the lower legs I did recommend compression stockings he is currently being evaluated for congestive heart failure. Patient denies any other complaints. Merrick Cardoso DPM [address], [place], [address], [facility] [employer] [facility] [employer] [facility] 05/11/2024 16:21:52 5 text/html . Patient is a 78-year-old male diabetic who returns the office for a fissure of his foot. Patient denies any drainage, redness. Patient has mild pain to the area. Patient denies knowing how this happened. Patient denies any injury to the foot. Patient states that he has developed thickened dry callus skin at the area of the fissure. Merrick Cardoso DPM [address] [facility] [facility] [address], [place], [address], [facility] [employer] [facility] [employer] [facility] 08/21/2024 09:42:51
--- OUTSIDE RECORDS SUMMARY | 2024-08-30 16:15 | XMS_ITS | Clinical Summary ---
Author Organization [facility] Address [address] [place] [address] Care Team Providers Care Hospital Product Specialist Name Role Phone Arnel Gonzalez MD Primary Care Provider [phone] Allergies Active Allergy Reactions Criticality Noted Date [...] day 810 capsule 9 10/12/2023 Active Immunizations Immunization Administration Dates Next Due Fluzone High Dose [...] on file Legal Sex Male 12:11 PM HOSE TURNER Gender Identity Not on file Sexual Orientation Not on file Last Filed Vital Signs Vital Sign Reading Time Taken Comments Blood Pressure 138/67 10/12/2023 3:33 PM CDT Pulse 85 10/12/2023 3:33 PM CDT Temperature 37.1 C (98.7 F) 10/12/2023 3:33 PM CDT Respiratory Rate 18 06/22/2023 12:59 PM HOSE TURNER Oxygen Saturation 96% 10/12/2023 3:33 PM CDT [...] Annual Medicare Wellness Visit 2009 Pneumococcal Vaccine: 50+ Years (2 of 2 - PPSV23) 03/28/2017 01/31/2017 RSV Immunization or 60+ Years (1 - 1-dose 75+ series) 11/26/2019 Hemoglobin A1C 12/16/2022 06/18/2022 COVID-19 Vaccine ( season) 2024 02/24/2022, 03/11/2021, 07/23/2020, Additional history exists PHQ-2 (Physician Circle) 05/03/2024 10/12/2023 Lipid Panel 06/16/2024 06/16/2023 Zoster [...] complete this topic Insurance [employer] Care Teams Hospital Product Specialist Relationship Specialty Start Date End Date Arnel Gonzalez MD [address] [place], [place] [id number] PCP - General INTERNAL MEDICINE 06/22/23
[2024-08-30 16:32] LABS: Add Urine Microscopic? NO; Appearance Urine Clear (Clear); Bilirubin Urine Negative (Negative); Blood Urine Negative (Negative); Color Urine Yellow (Yellow); Glucose Urine UA 3+ mg/dL (Negative); Ketones Urine Negative (Negative); Leukocyte Esterase Ur Negative LEU/UL (Negative); Nitrate Urine Negative (Negative); Protein Urine Negative (Negative); Specific Grav Ur 1.014 (1.001-1.035); Urobilinogen Urine 0.2 mg/dL (<2.0); pH Urine 5.5 (5.0-9.0)
== END 2024-08-30 15:21 | disposition home or self-care (01) ==
LOC: ANHLAB 15:22
PROVIDERS: PCP Internal Medicine; Visit Provider Clinical Nurse Specialist
DX: R31.9 Hematuria, unspecified (principal)
CPT/HCPCS: 81003

== ENCOUNTER 2024-10-02 14:34 | Outpatient (CLI) | payer MEDICARE, SELFPAY ==
--- OUTSIDE RECORDS SUMMARY | 2024-10-02 14:50 | XMS_ITS | Encounter Summary ---
Author Organization [facility] Address [address] [place] [address] Phone Care Team Providers Care Special Delivery Clerk Name Role Phone Arnel Gonzalez MD Primary Care Provider [phone] Yfn Gill MD Unavailable [phone] Aguila Chris MD Unavailable [phone] Malcolm Castro MD Unavailable Neeraj La MD Unavailable [phone] Armand Howard RN Unavailable Unavaila August Hsu Primary Care Provider Miguel Torres DO Primary Care Provider [phone] Rafa Chavez DO Primary Care Provider [phone] Encounter Details Date Type Department Care Team [...] file Legal Sex Male 1:58 AM DIRECTOR OF MEDICAL EDUCATION Gender Identity Not on file Sexual Orientation [...] COVID: Suspected 05/05/2022 05/05/2022 05/05/2022 12:26 PM DIRECTOR OF MEDICAL EDUCATION COVID: Suspected 05/05/2022 05/05/2022 05/05/2022 8:19 PM DIRECTOR OF MEDICAL EDUCATION COVID: Suspected 03/19/2024 03/19/2024 03/19/2024 3:22 AM DIRECTOR OF MEDICAL EDUCATION documented as of this encounter Care Teams Special Delivery Clerk Relationship Specialty Start Date End Date Arnel Gonzalez MD [address] [address] PCP - General 07/19/13 07/05/23 August Triana PA [address] [place] [address] PCP - General Physician Rn Post Partum 07/06/23 01/16/24 Miguel Torres DO [address] [place] [address] PCP - General Internal Medicine 01/17/24 05/31/24 Rafa Chavez DO [address] [place] [address] PCP - General Internal Medicine 06/01/24 Yfn Gill MD [address] [facility] [address] [place] [address] Referring Physician Nephrology 01/22/22 Aguila Chris MD [address] [facility] [address] [place] [address] Consulting Physician Cardiology 01/22/22 [place] [address] [address] Consulting Physician Endocrinology Diabetes & Metabolism 01/22/22 Neeraj La MD [address] [facility] [address] [facility] [address] [place] [address] Surgeon Vascular Surgery 01/30/22 Armand Howard, RN Registered Nurse 06/30/22 07/02/22 documented as of this encounter
--- OUTSIDE RECORDS SUMMARY | 2024-10-02 14:50 | XMS_ITS | Clinical Summary ---
Author Organization [facility] [employer] Address [address] [place] [address] Care Team Providers Care Top Loader Name Role Phone SabrinaArnel barbour Primary Care Provider [phone] Source Comments [facility] [employer],non-[facility] Affiliates and Associated Physician Practices is amultiple site organization consisting of ambulatory clinics and hospital sitesin [place], [place], [place] and [place]. This disclosure is being madepursuant to the Care Everywhere program and may not contain all information available regarding this patient. Last updated 18.[facility] [employer] Allergies Active Allergy Reactions Criticality Noted Date [...] on file Legal Sex Male 5:50 AM NET MANAGER Gender Identity Not on file Sexual Orientation Not on file Last Filed Vital Signs Vital Sign Reading Time Taken Comments Blood Pressure 136/70 05/05/2021 1:09 PM NET MANAGER Pulse 76 05/05/2021 1:09 PM NET MANAGER Temperature - - Respiratory Rate 14 05/05/2021 1:09 PM NET MANAGER Oxygen Saturation 98% 05/05/2021 1:09 PM NET MANAGER Inhaled Oxygen Concentration - - Weight 121.1 kg (267 lb) 05/05/2021 1:09 PM NET MANAGER Height 172.7 cm (5' 8) 05/05/2021 1:09 PM NET MANAGER Body Mass Index 40.6 05/05/2021 1:09 PM NET MANAGER Plan of Treatment Health Maintenance Due Date [...] complete this topic Insurance [employer] Care Teams Top Loader Relationship Specialty Start Date End Date Arnel Gonzalez DO [address] [facility] [address] [place], [place] [id number] PCP - General 01/03/21
--- OUTSIDE RECORDS SUMMARY | 2024-10-02 14:50 | XMS_ITS | Clinical Summary ---
Author Organization [facility] Address [address] [place] [address] Care Team Providers Care Barber Shop Manager Name Role Phone Yfn Gill MD Unavailable [phone] Aguila Chris MD Unavailable [phone] Malcolm Castro MD Unavailable [phone] Neeraj La MD Unavailable [phone] Rafa Chavez DO Primary Care Provider [phone] Allergies Active Allergy Reactions Criticality Noted Date [...] 1 tablet (300 mg total) by mouth steward/stewardess second class before breakfast 0 Active alpha lipoic acid [...] 3 5 Active bumetanide (BUMEX) 2 mg tabletIndications :Chronic heart failure with preserved ejection fraction (HCC) Take 1 tablet (2 mg total) by mouth daily 90 tablet 2 5 Active Active Problems Problem Noted Date Diagnosed Date Cardiovascular stress test abnormal 02/24/2024 Benign paroxysmal positional vertigo of left ear 09/28/2023 Cervical myelopathy with cervical radiculopathy 06/30/2022 Cervical spondylosis with myelopathy 06/09/2022 Overview (06/09/2022): Added automatically from request for surgery [id number] Carotid stenosis, right 01/07/2022 Overview (01/07/2022): Added automatically from request for surgery [id number] Assessment & Plan (04/19/2023 1:00 PM CLIENT SOLUTIONS DIRECTOR): Status post TCAR. Stent patent. Continue anti-platelet therapy follow-up 6 months. Assessment & Plan (03/12/2022 5:16 PM CLIENT SOLUTIONS DIRECTOR): Impression: Patient is status post right TCAR. [...] (02/05/2020): Added automatically from request for surgery [id number] Hx of colonic polyps 10/10/2019 Overview (10/10/2019): Added automatically from request for surgery [id number] History of colon polyps 07/10/2019 Overview (07/10/2019): Added automatically from request for surgery [id number] Hypertension associated with diabetes 06/29/2019 Assessment & Plan (06/08/2024 2:36 PM CLIENT SOLUTIONS DIRECTOR): Chronic problem, Controlled on metoprolol, Entresto, HCTZ, bumetanide, hydralazine, amlodipine. No changes. Assessment & Plan (04/19/2023 1:00 PM CLIENT SOLUTIONS DIRECTOR): Hypertension chronic controlled. Continue current medical management [...] actual BMI) Coronary artery disease invo lving king salmon coronary artery of king salmon heart without angina pectoris 05/06/2015 Overview (08/07/2016): Coronary artery disease involving king salmon coronary artery of king salmon heart without angina pectoris Assessment & Plan (01/07/2022 3:00 PM CDT): Stable. Continue medical therapy. Mixed diabetic hyperlipidemi a associated with type 2 diabetes mellitus ([facility]) 05/06/2015 Overview (08/07/2016): Type 2 diabetes mellitus with complication Assessment & Plan (06/08/2024 2:36 PM CLIENT SOLUTIONS DIRECTOR): Chronic problem. On statin therapy, no changes. Assessment & Plan (04/19/2023 1:00 PM CLIENT SOLUTIONS DIRECTOR): Hyperlipidemia chronic and controlled. Continue current medical management. Assessment & Plan (01/14/2022 9:31 AM CDT): Hyperlipidemia chronic and controlled. Continue Crestor. Assessment & Plan (01/07/2022 2:58 PM CDT): Type 2 diabetes chronic and controlled. Continue current medical therapy. Hypertensive heart disease with congestive heart failure 05/06/2015 Overview (08/07/2016): Hypertensive heart disease with diastolic heart failure Type 2 diabetes mellitus wit h hyperglycemia, with long-term current use of insulin 05/06/2015 Overview (12/29/2021): Type 2 diabetes mellitus with complication Assessment & Plan (06/08/2024 2:37 PM CLIENT SOLUTIONS DIRECTOR): Chronic problem, improving but not at goal. [...] Encounters Date Type Department Care Team Description 09/27/2024 Results Follow-Up [facility] Cardiology [address] [place] [id number] Nabil Harding MD Transthoracic Echo (TTE) Complete W Doppler/CF 09/26/2024 1:00 PM CDT Ancillary Procedure [facility] Cardiology [address] [place] [address] Coronary artery disease involving king salmon coronary artery of king salmon heart without angina pectoris; S/P aortic valve replacement with bioprosthetic valve; Cardiomyopathy, ischemic 08/23/2024 1:45 PM CDT Office Visit [facility] Cardiology [address] [place] [id number] Nabil Harding MD Coronary artery disease involving king salmon coronary artery of king salmon heart without angina pectoris (Primary Dx); S/P angioplasty with stent; S/P CABG x 2; S/P aortic valve replacement with bioprosthetic valve; Chronic combined systolic and diastolic CHF (congestive heart failure) (HCC); Cardiomyopathy, ischemic; Hypertension associated with diabetes (HCC); Stage 3b chronic kidney disease (HCC); MARY on CPAP from Last 3 Months Immunizations Immunization Administration [...] failur e) (HCC) Pneumonia 10/21/2021 [place] at [place] with PNA, JUANITA and CHF Cancer (HCC) [...] money to buy more. Never true 04/14/20 Within the past 12 months, t he [...] on file Legal Sex Male 1:58 AM CLIENT SOLUTIONS DIRECTOR Gender Identity Not on file Sexual Orientation Not on file Obstetrics History Last Filed Vital Signs Vital Sign Reading Time Taken Comments Blood Pressure 118/62 08/23/2024 1:04 PM CDT Pulse 55 08/23/2024 1:04 PM CDT Temperature 36.7 C (98 F) 04/17/2024 7:04 AM CLIENT SOLUTIONS DIRECTOR Respiratory Rate 18 06/08/2024 1:27 PM CLIENT SOLUTIONS DIRECTOR Oxygen Saturation 93% 08/23/2024 1:04 PM CDT Inhaled Oxygen Concentration - - Weight 124.3 kg (274 lb) 08/23/2024 1:04 PM CDT Height 172.7 cm (5' 8) 08/23/2024 1:04 PM CDT Body Mass Index [...] Chronic Care Management No change(04/14 11:08 AM CLIENT SOLUTIONS DIRECTOR) Pool Welch RN Note: Problem: Chronic Pain Goals: 1. Minimize further functional decline 2. Maximize quality of life 3. Control pain Strategies: - Activity/exercise program recommendation - Conservative stepwise pain medicine strategy with multi-disciplinary approach - Recommend healthy lifestyle strategies and compensatory methods as needed Medical Devices Implanted Type Area Casino Duty Manager Device Identifier Shelf Expiration Date Model / Serial / Lot Total Knee Left: Knee Medtronic Inc Resolute [place] 3mm 2.1-2.7fr 12mm 140cm Rapid Exchange Radiopaque [id number] - [id number] Implanted:Qty: 1 on 09/03/2021 by Bindu Goins MD at [facility] Medtronic Inc 06/11/2024 [id number] / / Medtronic Inc Resolute Ian 3.5mm 2.1-2.7fr 15mm 140cm Rapid Exchange [id number] - [id number] Implanted:Qty: 1 on 09/03/2021 by Bindu Goins MD at [facility] Medtronic Inc 04/04/2024 [id number] / / Angio-Seal Vip 6fr Closere Device [id number] - [id number] Implanted:Qty: 1 on 09/03/2021 by Bindu Goins MD at [facility] TerGlobal Integrity Miya 06/02/2022 [id number] / / [employer] [place] [employer] Enroute Uber Flex 8mm .065in 40mm 57cm Delivery System Angle Tip [id number] - [id number] Implanted:Qty: 1 on 01/29/2022 by Neeraj La MD at [facility] Right: Carotid [employer] 08/30/2024 [id number] / / [id number] Matilde Biomet Inc 4.5mm 16mm Fix Screw Bone [id number] - [id number] Implanted:Qty: 3 on 06/30/2022 by Fredy Nguyen MD at [facility] N/A: Spine Cervical MATILDE BIOMET SPINE INC [id number] / / Musculoskeletal Transplant 12.3c38c7sh Frozen Spine 7d Lordotic Trapezoid Spacer Allograft 603671 - [id number] - [id number] Implanted:Qty: 1 on 06/30/2022 by Fredy Nguyen MD at [facility] N/A: Spine Cervical Musculoskeletal Transplant [id number] 03/25/2025 [id number] / [id number] / Musculoskeletal Transplant 12.6k10d2qo Frozen Spine 7d Lordotic Trapezoid Spacer Allograft 870533 - [id number] - [id number] Implanted:Qty: 1 on 06/30/2022 by Fredy Nguyen MD at [facility] N/A: Spine Cervical Musculoskeletal Transplant [id number] 01/03/2025 [id number] / [id number] / Musculoskeletal Transplant 12.9t90k0eh Frozen Spine 7d Lordotic Trapezoid Spacer Allograft 050362 - [id number] - [id number] Implanted:Qty: 1 on 06/30/2022 by Fredy Nguyen MD at [facility] N/A: Spine Cervical Musculoskeletal Transplant [id number] 04/26/2026 [id number] / [id number] / [employer] Inc C-Ervin Maxan 51mm Level 3 Fix Spine Cervical Anterior Plate Bone [id number] - [id number] Implanted:Qty: 1 on 06/30/2022 by Fredy Nguyen MD at [facility] N/A: Spine Cervical [employer]IL[employer] INC [id number] 1 / / Matilde [employer] Inc 4mm 16mm Fix Screw Bone [id number] - [id number] Implanted:Qty: 5 on 06/30/2022 by Fredy Nguyen MD at [facility] N/A: Spine Cervical MATILDE [employer] SP[employer] INC [id number] / / Access Closure Inc Device 10ml 5fr Closure Mynx Control 2 Mode Balloon Catheter [id number] - [id number] Implanted:Qty: 1 on 03/27/2024 by Nabil Harding MD at [facility] Access Closure Inc 01/18/2026 [id number] / / [id number] Medtronic [facility] Vas Surgery 4.0 X 18mm [place] Gratiot Rx Coronary Stent [id number] - [id number] Implanted:Qty: 1 on 04/17/2024 by Nabil Harding MD at [facility] Medtronic Card Vasc Surgery 12/26/2026 [id number] / / [id number] Access Closure Inc Mynx Control 6-7fr 2 Mode Balloon Catheter Sealant Lock Syringe [id number] - [id number] Implanted:Qty: 1 on 04/17/2024 by Nabil Harding MD at [facility] Access [employer] Inc 01/05/2026 [id number] / / [id number] Procedures Procedure Name Priority Date/Time Associated Diagnosis Comments TRANSTHORACIC ECHO (TTE) COMPLETE W DOPPLER/CF Routine 09/26/2024 1:45 PM CDT Coronary artery disease involving king salmon coronary artery of king salmon heart without angina pectoris S/P aortic valve replacement with bioprosthetic valve Cardiomyopathy, ischemic POCT HEMOGLOBIN A1C Routine 06/08/2024 1 :18 PM CLIENT SOLUTIONS DIRECTOR Type 2 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 disease, with long-term current use of insulin (HCC) ALBUMIN CREATININE RATIO, URINE Routine 06/08/2024 1:18 PM CLIENT SOLUTIONS DIRECTOR Type 2 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 disease, with long-term current use of insulin (HCC) POCT LIPID PANEL Routine 06/08/2024 1:18 AM CLIENT SOLUTIONS DIRECTOR Type 2 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 disease, with long-term current use of insulin (HCC) HM CREATININE Routine 05/31/2024 12:52 PM CLIENT SOLUTIONS DIRECTOR HEPATITIS C AB REFLEX RNA QUANT PCR Routine 06/14/2019 3:47 PM CLIENT SOLUTIONS DIRECTOR COLONOSCOPY REPORT 05/18/2014 from Last 3 Months or Most Recently Relevant to Health Maintenance Results * TRANSTHORACIC ECHO (TTE) COMPLETE W DOPPLER/CF W CONTRAST (09/26/2024 1:45 PM CDT) Estimated EF 35-40 % CONS SCIMAGE EF Mod BP 45 % CONS SCIMAGE Anatomical Region Laterality Modality Ultrasound 09/26/2024 1:03 PM CDT Narrative 09/26/2024 4:[address] [facility] Cardiology [address] [facility] [address], [place] [address] [address] [facility] [address], [place] [address] P:[phone] P:[phone] Echocardiographic Report Patient Name: TAMIKA AGUILAR Priscilla : 1945 Study Date: 09/26/2024 1:03:46 PM Gender: M Tech: Location: [place] Ref Provider: NABIL HARDING Height(Cm): 173 BSA: 2.44 Weight(Kg): 124.3 Heart Rate: 105 BP: 118 / 62 Quality: Good Order Provider: NABIL HARDING PROCEDURES: Echocardiographic Report: Transthoracic echocardiogram with complete 2D, M-Mode, color Doppler examination and Definity contrast. INDICATIONS: S/P TAVR, I25.10 Atherosclerotic heart disease of king salmon coronary artery without angina pectoris, and I25.5 Ischemic cardiomyopathy. MEASUREMENTS: 2D/MM Value Range Doppler Value Range EF Mod BP 45 % [ 52 - 72 ] PARESH Vmax 1.82 cm2 [ 2.00 - 4.00 ] EF Teich MM 41 % [ 52 - 72 ] AV Mean PG 12 mmHg Estimated EF 35-40 % AV Peak Tobi 2.20 m/s [ 1.00 - 1.70 ] LVIDd 2D 6.66 cm [ 4.20 - 5.80 ] AV Peak PG 19 mmHg LVIDd MM 6.97 cm [ 4.20 - 5.80 ] AV VTI 42.10 cm LVIDs 2D 4.75 cm [ 2.50 - 4.00 ] LVOT Diam 2.14 cm [ 1.70 - 2.10 ] LVIDs MM 5.55 cm [ 2.50 - 4.00 ] LVOT Peak Tobi 1.12 m/s [ 0.70 - 1.10 ] LVPWd 2D 1.55 cm [ 0.60 - 1.00 ] LVOT VTI 24.25 cm LVPWd MM 1.33 cm [ 0.60 - 1.00 ] MV E Peak Tobi 0.67 m/s [ 0.60 - 1.30 ] IVSd 2D 1.08 cm [ 0.60 - 1.00 ] MV A Peak Tobi 1.29 m/s [ 1.00 - 1.20 ] IVSd MM 0.91 cm [ 0.60 - 1.00 ] MV Decel Time 159 msec [ 104 - 258 ] LA Dimension MM 4.41 cm [ 3.00 - 4.00 ] PV Peak Tobi 1.03 m/s [ 0.40 - 0.80 ] AoR Diam MM 4.35 cm [ 3.10 - 3.70 ] TR Peak Tobi 2.33 m/s [ 1.00 - 2.80 ] LA Volume Index 30 cc/m2 [ 16 - 34 ] TR Peak PG 22 mmHg RVSP 30.00 mmHg [ 10.00 - 36.00 ] Lateral E` 0.08 m/s [ 0.10 - 0.15 ] E` 0.05 m/s E/E` 8 2D/MM Value Range Doppler Value Range - FINDINGS: Interpretation Site: Exam was interpreted at [facility]. Left Ventricle: Definity contrast agent used to visually enhance endocardial wall motion and contractility. Lot Number: [id number]. Moderate concentric left ventricular hypertrophy. Moderate enlargement of left ventricle cavity. Moderate global left ventricular systolic dysfunction. Paradoxical septal motion consistent with IVCD or bundle branch block. Impaired diastolic relaxation Grade I. Ejection Fraction is visually estimated to be 35-40 %. Right Ventricle: Normal right ventricular size. Normal right ventricular systolic function. Left Atrium: There is mild enlargement of left atrium. Right Atrium: The right atrium is normal in size. Atrial Septum: Normal atrial septum. Mitral Valve: Mitral valve leaflets appear moderately thickened. Mild mitral valve regurgitation. There is no hemodynamically significant mitral stenosis by Doppler. Aortic Valve: Peak Velocity of 2.20 m/s. Peak gradient of 19.0 mmHg. Mean gradient of 12.0 mmHg. Valve area of 1.8 cm2. Trace aortic valve regurgitation. Gradients normal for valve type and size. Normal appearing aortic valve bioprosthesis. Tricuspid Valve: Normal appearance of the tricuspid valve. Normal right ventricular systolic pressure. Estimated peak RVSP is 30 mmHg. Mild tricuspid regurgitation. Pulmonic Valve: Normal appearance of the pulmonic valve. No pulmonic stenosis. Trivial regurgitation in the pulmonic valve. Pericardium: Trivial pericardial effusion. Aorta: Sinus of Valsalva is dilated. IVC: Normal size and normal respiratory collapse consistent with normal right atrial pressure (<5 mmHg). CONCLUSIONS: Definity contrast agent used to visually enhance endocardial wall motion and contractility. Lot Number: [id number]. Moderate concentric left ventricular hypertrophy. Moderate enlargement of left ventricle cavity. Moderate global left ventricular systolic dysfunction. Paradoxical septal motion consistent with IVCD or bundle branch block. Impaired diastolic relaxation Grade I. Ejection Fraction is visually estimated to be 35-40 %. There is mild enlargement of left atrium. Mitral valve leaflets appear moderately thickened. Mild mitral valve regurgitation. Peak Velocity of 2.20 m/s. Peak gradient of 19.0 mmHg. Mean gradient of 12.0 mmHg. Valve area of 1.8 cm2. Trace aortic valve regurgitation. Gradients normal for valve type and size. Normal appearing aortic valve bioprosthesis. Mild tricuspid regurgitation. Sinus of Valsalva is dilated. Normal sinus rhythm. Electronically Signed By: Zack Vásquez MD 09/26/2024 4:27:56 PM CDT Procedure Note Zack Vásquez MD - 09/26/2024 [facility] Cardiology [address] [facility] [facility] [address], [place] [address] [address] [facility] [address], [place] [address] P:[phone] P:[phone] Echocardiographic Report Patient Name: TAMIKA AGUILAR D : 1945 Study Date: 09/26/2024 1:03:46 PM Gender: M Tech: Location: [facility] Provider: NABIL HARDING Height(Cm): 173 BSA: 2.44 Weight(Kg): 124.3 Heart Rate: 105 BP: 118 / 62 Quality: Good Order Provider: NABIL HARDING PROCEDURES: Echocardiographic Report: Transthoracic echocardiogram with complete 2D, M-Mode, color Dopplerexamination and Definity contrast. INDICATIONS: S/P TAVR, I25.10 Atherosclerotic heart disease of king salmon coronary arterywithout angina pectoris, and I25.5 Ischemic cardiomyopathy. MEASUREMENTS: 2D/MM Value Range Doppler ValueRange EF Mod BP 45 % [ 52 - 72 ] PARESH Vmax 1.82cm2 [ 2.00 - 4.00 ] EF Teich MM 41 % [ 52 - 72 ] AV Mean PG 12mmHg Estimated EF 35-40 % AV Peak Tobi 2.20m/s [ 1.00 - 1.70 ] LVIDd 2D 6.66 cm [ 4.20 - 5.80 ] AV Peak PG 19mmHg LVIDd MM 6.97 cm [ 4.20 - 5.80 ] AV VTI 42.10cm LVIDs 2D 4.75 cm [ 2.50 - 4.00 ] LVOT Diam 2.14 cm[ 1.70 - 2.10 ] LVIDs MM 5.55 cm [ 2.50 - 4.00 ] LVOT Peak Tobi 1.12m/s [ 0.70 - 1.10 ] LVPWd 2D 1.55 cm [ 0.60 - 1.00 ] LVOT VTI 24.25cm LVPWd MM 1.33 cm [ 0.60 - 1.00 ] MV E Peak Tobi 0.67m/s [ 0.60 - 1.30 ] IVSd 2D 1.08 cm [ 0.60 - 1.00 ] MV A Peak Tobi 1.29m/s [ 1.00 - 1.20 ] IVSd MM 0.91 cm [ 0.60 - 1.00 ] MV Decel Time 159msec [ 104 - 258 ] LA Dimension MM 4.41 cm [ 3.00 - 4.00 ] PV Peak Tobi 1.03m/s [ 0.40 - 0.80 ] AoR Diam MM 4.35 cm [ 3.10 - 3.70 ] TR Peak Tobi 2.33m/s [ 1.00 - 2.80 ] LA Volume Index 30 cc/m2 [ 16 - 34 ] TR Peak PG 22mmHg RVSP 30.00 mmHg [ 10.00 - 36.00 ] Lateral E` 0.08 m/s [ 0.10 - 0.15 ] E` 0.05 m/s E/E` 8 2D/MM Value Range Doppler ValueRange - FINDINGS: Interpretation Site: Exam was interpreted at [facility] [place]. Left Ventricle: Definity contrast agent used to visually enhance endocardial wall motionand contractility. Lot Number: [id number]. Moderate concentric left ventricularhypertrophy. Moderate enlargement of left ventricle cavity. Moderate global leftventricular systolic dysfunction. Paradoxical septal motion consistent with IVCD or bundlebranch block. Impaired diastolic relaxation Grade I. Ejection Fraction is visuallyestimated to be 35-40 %. Right Ventricle: Normal right ventricular size. Normal right ventricular systolicfunction. Left Atrium: There is mild enlargement of left atrium. Right Atrium: The right atrium is normal in size. Atrial Septum: Normal atrial septum. Mitral Valve: Mitral valve leaflets appear moderately thickened. Mild mitral valveregurgitation. There is no hemodynamically significant mitral stenosis by Doppler. Aortic Valve: Peak Velocity of 2.20 m/s. Peak gradient of 19.0 mmHg. Mean gradient of12.0 mmHg. Valve area of 1.8 cm2. Trace aortic valve regurgitation. Gradients normal forvalve type and size. Normal appearing aortic valve bioprosthesis. Tricuspid Valve: Normal appearance of the tricuspid valve. Normal right ventricularsystolic pressure. Estimated peak RVSP is 30 mmHg. Mild tricuspid regurgitation. Pulmonic Valve: Normal appearance of the pulmonic valve. No pulmonic stenosis. Trivialregurgitation in the pulmonic valve. Pericardium: Trivial pericardial effusion. Aorta: Sinus of Valsalva is dilated. IVC: Normal size and normal respiratory collapse consistent with normal rightatrial pressure (<5 mmHg). CONCLUSIONS: Definity contrast agent used to visually enhance endocardial wall motionand contractility. Lot Number: [id number]. Moderate concentric left ventricularhypertrophy. Moderate enlargement of left ventricle cavity. Moderate global leftventricular systolic dysfunction. Paradoxical septal motion consistent with IVCD or bundlebranch block. Impaired diastolic relaxation Grade I. Ejection Fraction is visuallyestimated to be 35-40 %. There is mild enlargement of left atrium. Mitral valve leaflets appear moderately thickened. Mild mitral valveregurgitation. Peak Velocity of 2.20 m/s. Peak gradient of 19.0 mmHg. Mean gradient of12.0 mmHg. Valve area of 1.8 cm2. Trace aortic valve regurgitation. Gradients normal forvalve type and size. Normal appearing aortic valve bioprosthesis. Mild tricuspid regurgitation. Sinus of Valsalva is dilated. Normal sinus rhythm. Electronically Signed By: Zack Vásquez MD 09/26/2024 4:27:56 PM CDT us Nabil Harding MD CV ECHO PROCEDURES Final Result * (ABNORMAL) POCT hemoglobin A1c (06/08/2024 1:18 PM CLIENT SOLUTIONS DIRECTOR) Pathologist [facility] Hemoglobin A1C, POC 8.3 4.0 - 5.6 % Capillary blood 06/08/2024 1 :18 PM CLIENT SOLUTIONS DIRECTOR Terra CRUZ POINT OF CARE TEST ORDE RABAMBER Final Result * (ABNORMAL) Albumin Creatinine Ratio, Urine (06/08/2024 1:18 PM CLIENT SOLUTIONS DIRECTOR) Pathologist [facility] Albumin Ur 68.0 mg/L Comment: Interpretive Data No reference range established. Current interpretive data was last revised 2018. Creatinine Ur 32.5 mg/dL JOSE MIGUEL Comment: Interpretive Data No reference range established. Current interpretive data was last revised 2018. Albumin Creatinine Ratio, Ur 209(H) 1 - 29 mg/g JOSE MIGUEL Urine 06/08/2024 1:18 PM CLIENT SOLUTIONS DIRECTOR 06/08/2024 7:31 PM CLIENT SOLUTIONS DIRECTOR Terra CRUZ LAB URINE ORDERABLES Fi nal Result JOSE MIGUEL [id number] [address] Department [place] [address] * (ABNORMAL) POCT lipid panel (06/08/2024 1:18 AM CLIENT SOLUTIONS DIRECTOR) Pathologist [facility] Cholesterol, POC 154 mg/dL HDL, POC 25 mg/dL Triglycerides, POC 271 mg/dL LDL Cholesterol POC 75 mg/dL Chol/HDL Ratio, POC 6.2 Non-HDL Cholesterol, POC 129 mg/dL Cholesterol Total, POC 154 mg/dL Capillary blood 06/08/2024 1 :18 AM CLIENT SOLUTIONS DIRECTOR Terra CRUZ POINT OF CARE TEST ORDE RABAMBER Final Result * (ABNORMAL) HM CREATININE (05/31/2024 12:52 PM CLIENT SOLUTIONS DIRECTOR) Pathologist [facility] SCRIBED Creatinine 2.16(A) 0.7 - 1.3 mg/dl EXTERNAL LAB SCRIBED eGFR in NonAfrican Pakistani 30 >59 - NA EXTERNAL LAB Blood 05/31/2024 12:5 2 PM CLIENT SOLUTIONS DIRECTOR Historical Provider HEALTH MAINTENANCE Edited Result - Final EXTERNAL LAB * Hepatitis C Antibody Reflex Hepatitis C RNA Quantitative PCR Blood (06/14/2019 3:47 PM CLIENT SOLUTIONS DIRECTOR) Hep C Ab Negative Negative JOSE MIGUEL Blood specimen (specimen) 06/14/2019 3:47 PM CLIENT SOLUTIONS DIRECTOR 06/14/2019 8:03 PM CLIENT SOLUTIONS DIRECTOR Notinfile Unknown LAB MICROBIOLOGY - GENERAL ORD ERABLES Final Result Performing Organization Address City/[facility]/ZIP Co de Phone Number JOSE MIGUEL [id number] [address] Department [place] [address] * COLONOSCOPY REPORT (05/18/2014) Anatomical Region Laterality Modality Other Narrative 05/18/2014 Ordered by an unspecified provider. Historical Provider GI PROCEDURE ORDERABLES F inal Result from Last 3 Months or Most Recently Relevant to Health Maintenance Insurance [employer]IC[employer] PPO [employer] MEDIC[employer] PPO Advance Directives For more information, please contact: [phone] * Full Code (Latest Code Status on File) Date Activated Date Inactivated Comments 06/30/2022 6:44 PM 07/03/2022 5:32 PM * Full Code Date Activated Date Inactivated Comments 06/30/2022 6:39 PM 06/30/2022 6:44 PM * Full Code Date Activated Date Inactivated Comments 01/29/2022 2:14 PM 01/30/2022 6:06 PM * Full Code Date Activated Date Inactivated Comments 09/03/2021 12:10 PM 09/04/2021 7:37 PM Care Teams Barber Shop Manager Relationship Specialty Start Date End Date Rafa Chavez DO [address] [facility] [address] [address] PCP - General Internal Medicine 06/01/24 Yfn Gill MD Referring Physician Nephrology 01/22/22 Aguila Chris MD Consulting Physician Cardiology 01/22/22 [place] [id number] [address] Consulting Physician Endocrinology Diabetes & Metabolism 01/22/22 Neeraj La MD [address] [place] [address] [address] Surgeon Vascular Surgery 01/30/22
--- OUTSIDE RECORDS SUMMARY | 2024-10-02 14:50 | XMS_ITS | Continuity of Care Document ---
Author Organization [facility] Address [address] [facility] [address] [place] [address] Phone Care Team Providers Care Christmas Tree Grower Name Role Phone Zaheer Tom Unavailable Unavailable [...] Diagnoses Date Provider Providers Copied on Encounter [facility], [address], [place], [place], [id number], [place] tel:[phone] [facility] No Information 0 Vaishali Schwab. [facility] [address], [address], [place]. tel:[phone] Referring Provider: Zaheer evans, [address] [address], [place], [address]. tel:[phone] [facility], [address], [place], [place], [id number], [place] tel:[phone] SEC [facility] [place] No Information 3-201 0 Krishnasamy Zaheer. [address] [place], [place] [address]ate [place] [address], [place], [place], [facility], [place]. tel:[phone] [facility], [address], [place], [place], [address], [place] tel:[phone] [facility] No Information 200 9 [employer]. [address] [facility], [address], [place], [place], [address], [place]. tel:[phone] Referring Provider: Zaheer evans, [address] [place], [place] [address]ate [facility] [address], [place], [place], [facility]. tel:[phone] sulting Provider: Leif Pineda, [address] [place] [address], [place], [facility]. tel:[phone] [facility], [address] [place] [address] [address], [place], [place], [address], [place] tel:[phone] [facility] No Information 9 Krishnasamy Zaheer. [address] [place], [place] [address]ate [facility], [place], [place], [facility], [place]. tel:[phone] Referring Provider: Zaheer evans, [address] [place], [place] [address]ate [facility] [address], [place], [place], [facility]. tel:[phone] [facility], [address] [place] [address] [address], [place], [place], [id number], [place] tel:[phone] SEC [facility] [place] No Information 200 9 Krishnasamy Zaheer. [address] [place], [place] [address]ate [facility] [address], [place], [place], [facility], [place]. tel:[phone] [facility], [address], [place], [place], [id number], [place] tel:[phone] SEC [facility] No Information 200 7 Juan Daniel Rios. [address] [facility], [address], [place], [place], [address], [place]. tel:[phone] Family History Family Member Type Diagnosis Age At Onset No Information Payers Payer name Insurance type Covered constitution party ID Authoriza tion(s) [place] [id number] Social History Type Description Quantity Date Captured [...]
--- OUTSIDE RECORDS SUMMARY | 2024-10-02 14:50 | XMS_ITS | Referral Summary ---
Author Organization [facility] Address [address] [place] [address] Care Team Providers Care Director Cardiac Name Role Phone Yfn Gill MD Unavailable [phone] Aguila Chris MD Unavailable [phone] Malcolm Castro MD Unavailable [phone] Neeraj La MD Unavailable [phone] Rafa Chavez DO Primary Care Provider [phone] Encounters Date Type Department Care Team Description 09/27/2024 Results Follow-Up [facility] [address] [facility] [address], [place] [address] Nabil Harding MD Transthoracic Echo (TTE) Complete W Doppler/CF 09/26/2024 1:00 PM CDT Ancillary Procedure [facility] [address] [place] [address] [address] [place] [address] 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; S/P aortic valve replacement with bioprosthetic valve; Cardiomyopathy, ischemic 08/23/2024 1:45 PM CDT Office Visit [facility] [address] [place] [address] Nabil Harding MD 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 Stent patent. Continue anti-platelet therapy follow-up 6 months. Assessment & Plan (03/12/2022 5:16 PM GROCERY SACKER): Impression: Patient is status post right TCAR. [...] (02/05/2020): Added automatically from request for surgery [id number] Hx of colonic polyps 10/10/2019 Overview (10/10/2019): Added automatically from request for surgery [id number] History of colon polyps 07/10/2019 Overview (07/10/2019): Added automatically from request for surgery [id number] Hypertension associated with diabetes 06/29/2019 Assessment & Plan (06/08/2024 2:36 PM GROCERY SACKER): Chronic problem, Controlled on metoprolol, Entresto, HCTZ, bumetanide, hydralazine, amlodipine. No changes. Assessment & Plan (04/19/2023 1:00 PM GROCERY SACKER): Hypertension chronic controlled. 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 Continue medical therapy. Mixed diabetic hyperlipidemi a associated with type 2 diabetes mellitus ([facility]) 05/06/2015 Overview (08/07/2016): Type 2 diabetes mellitus with complication Assessment & Plan (06/08/2024 2:36 PM GROCERY SACKER): Chronic problem. On statin therapy, no changes. Assessment & Plan (04/19/2023 1:00 PM GROCERY SACKER): Hyperlipidemia chronic and controlled. Continue current medical [...] complication Assessment & Plan (06/08/2024 2:37 PM GROCERY SACKER): Chronic problem, improving but not at goal. [...] week so we can look at his Page[employer] Dona data and advise on changes to [...] on file Legal Sex Male 1:58 AM GROCERY SACKER Gender Identity Not on file Sexual Orientation Not on file Last Filed Vital Signs Vital Sign Reading Time Taken Comments Blood Pressure 118/62 08/23/2024 1:04 PM CDT Pulse 55 08/23/2024 1:04 PM CDT Temperature 36.7 C (98 F) 04/17/2024 7:04 AM GROCERY SACKER Respiratory Rate 18 06/08/2024 1:27 PM GROCERY SACKER Oxygen Saturation 93% 08/23/2024 1:04 PM CDT [...] Chronic Care Management No change(04/14 11:08 AM GROCERY SACKER) No Pool Frey, KATHERINE Note: Problem: Chronic Pain Goals: 1. Minimize further functional decline 2. Maximize quality of life 3. Control pain Strategies: - Activity/exercise program recommendation - Conservative stepwise pain medicine strategy with multi-disciplinary approach - Recommend healthy lifestyle strategies and compensatory methods as needed Medical Devices Implanted Type Area Oxygen Therapist Device Identifier Shelf Expiration Date Model / Serial / Lot Total Knee Left: Knee Medtronic Inc Resolute Caldwell 3mm 2.1-2.7fr 12mm 140cm Rapid Exchange Radiopaque [id number] - [id number] Implanted:Qty: 1 on 09/03/2021 by Bindu Goins MD at [facility] Medtronic Inc 06/11/2024 [id number] / / Medtronic Inc Resolute Ian 3.5mm 2.1-2.7fr 15mm 140cm Rapid Exchange [id number] - [id number] Implanted:Qty: 1 on 09/03/2021 by Bindu Goins MD at [facility] [employer] Inc 04/04/2024 [id number] / / Angio-Seal Vip 6fr Closere Device [id number] - [id number] Implanted:Qty: 1 on 09/03/2021 by Bindu Goins MD at [facility] CitiLogicsShook Miya 06/02/2022 [id number] / / Go[employer] Inc Enroute Uber Flex 8mm .065in 40mm 57cm Delivery System Angle Tip Sr-0840-Cs - [id number] Implanted:Qty: 1 on 01/29/2022 by Neeraj La MD at [facility] Right: Carotid [employer] Inc 08/30/2024 SR-0840- CS / / [id number] Matilde Biomet Inc 4.5mm 16mm Fix Screw Bone [id number] - [id number] Implanted:Qty: 3 on 06/30/2022 by Fredy Nguyen MD at [facility] N/A: Spine Cervical MATILDE BIOMET SPINE INC [id number] / / Musculoskeletal Transplant 12.4c51j2qx Frozen Spine 7d Lordotic Trapezoid Spacer Allograft 010707 - [id number] - [id number] Implanted:Qty: 1 on 06/30/2022 by Fredy Nguyen MD at [facility] N/A: Spine Cervical Musculoskeletal Transplant [id number] 03/25/2025 [id number] / [id number] / Musculoskeletal Transplant 12.1e10v2ag Frozen Spine 7d Lordotic Trapezoid Spacer Allograft 071187 - [id number] - [id number] Implanted:Qty: 1 on 06/30/2022 by Fredy Nguyen MD at [facility] N/A: Spine Cervical Musculoskeletal Transplant [id number] 01/03/2025 [id number] / [id number] / Musculoskeletal Transplant 12.5m72n1vw Frozen Spine 7d Lordotic Trapezoid Spacer Allograft 177760 - [id number] - [id number] Implanted:Qty: 1 on 06/30/2022 by Fredy Nguyen MD at [facility] N/A: Spine Cervical Musculoskeletal Transplant [id number] 04/26/2026 [id number] / [id number] / Matilde [employer] Inc C-Ervin Maxan 51mm Level 3 Fix Spine Cervical Anterior Plate Bone 14-371642 - [id number] Implanted:Qty: 1 on 06/30/2022 by Fredy Nguyen MD at [facility] N/A: Spine Cervical MATILDE [employer] SP[employer] INC 14-73416 1 / / Matilde [employer] Inc 4mm 16mm Fix Screw Bone 14-577559 - [id number] Implanted:Qty: 5 on 06/30/2022 by Fredy Nguyen MD at [facility] N/A: Spine Cervical MATILDE [employer] SP[employer] INC [id number] / / Access Closure Inc Device 10ml 5fr Closure Mynx Control 2 Mode Balloon Catheter [id number] - [id number] Implanted:Qty: 1 on 03/27/2024 by Nabil Harding MD at [facility] Access [employer]osure Inc 01/18/2026 [id number] / / [id number] [facility] Vasc Surgery 4.0 X 18mm Ian Wilkes Rx Coronary Stent [id number] - [id number] Implanted:Qty: 1 on 04/17/2024 by Nabil Harding MD at [facility] Medtronic Card Vasc Surgery 12/26/2026 [id number] / / [id number] Access Closure Inc Mynx Control 6-7fr 2 Mode Balloon Catheter Sealant Lock Syringe [id number] - [id number] Implanted:Qty: 1 on 04/17/2024 by Nabil Harding MD at [facility] [employer] Inc 01/05/2026 [id number] / / [id number] Procedures Procedure Name Priority Date/Time Associated Diagnosis Comments TRANSTHORACIC ECHO (TTE) COMPLETE W DOPPLER/CF Routine 09/26/2024 1:45 PM CDT 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 S/P aortic valve replacement with bioprosthetic valve Cardiomyopathy, ischemic POCT HEMOGLOBIN A1C Routine 06/08/2024 1 :18 PM GROCERY SACKER Type 2 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 disease, with long-term current use of insulin (HCC) ALBUMIN CREATININE RATIO, URINE Routine 06/08/2024 1:18 PM GROCERY SACKER Type 2 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 disease, with long-term current use of insulin (HCC) POCT LIPID PANEL Routine 06/08/2024 1:18 AM GROCERY SACKER Type 2 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 disease, with long-term current use of insulin (HCC) HM CREATININE Routine 05/31/2024 12:52 PM GROCERY SACKER HEPATITIS C AB REFLEX RNA QUANT PCR Routine 06/14/2019 3:47 PM GROCERY SACKER COLONOSCOPY REPORT 05/18/2014 from Last 3 Months or Most Recently Relevant to Health Maintenance Results * TRANSTHORACIC ECHO (TTE) COMPLETE W DOPPLER/CF W CONTRAST (09/26/2024 1:45 PM CDT) Estimated EF 35-40 % CONS SCIMAGE EF Mod BP 45 % CONS SCIMAGE Anatomical Region Laterality Modality Ultrasound 09/26/2024 1:03 PM CDT Narrative 09/26/2024 4:28 PM CDT [facility] [address], [place] [address] [address], [place] [address] P:[phone] P:[phone] Echocardiographic Report Patient Name: TAMIKA AGUILAR D : 1945 Study Date: 09/26/2024 1:03:46 PM Gender: M Tech: Location: [facility] Provider: NABIL HARDING Height(Cm): 173 BSA: 2.44 Weight(Kg): 124.3 Heart Rate: 105 BP: 118 / 62 Quality: Good Order Provider: NABIL HARDING PROCEDURES: Echocardiographic Report: Transthoracic echocardiogram with complete 2D, M-Mode, color Doppler examination and Definity contrast. INDICATIONS: S/P TAVR, I25.10 Atherosclerotic heart disease of houlton coronary artery without angina pectoris, and I25.5 [...] FINDINGS: Interpretation Site: Exam was interpreted at [facility]. Left Ventricle: Definity contrast agent used [...] Procedure Note Zack Vásquez MD - 09/26/2024 [facility] [address] [facility] [address] [address] [address] [facility] [address] [address] P:[phone] P:[phone] Echocardiographic Report Patient Name: TAMIKA AGUILAR Priscilla : 1945 Study Date: 09/26/2024 1:03:46 PM Gender: M Tech: Location: CT Ref Provider: NABIL HARDING Height(Cm): 173 BSA: 2.44 Weight(Kg): 124.3 Heart Rate: 105 BP: 118 / 62 Quality: Good Order Provider: NABIL HARDING PROCEDURES: Echocardiographic Report: Transthoracic echocardiogram with complete 2D, M-Mode, color Dopplerexamination and Definity contrast. INDICATIONS: S/P TAVR, I25.10 Atherosclerotic heart disease of houlton coronary arterywithout angina pectoris, and I25.5 Ischemic [...] FINDINGS: Interpretation Site: Exam was interpreted at [facility]. Left Ventricle: Definity contrast agent used [...] Zack Vásquez MD 09/26/2024 4:27:56 PM CDT Nabil Harding MD CV ECHO PROCEDURES Final Result * (ABNORMAL) POCT hemoglobin A1c (06/08/2024 1:18 PM GROCERY SACKER) [facility] Hemoglobin A1C, POC 8.3 4.0 - 5.6 % Capillary blood 06/08/2024 1 :18 PM GROCERY SACKER Result [facility] Terra CRUZ POINT OF CARE TEST ORDE RABLES Final Result * (ABNORMAL) Albumin Creatinine Ratio, Urine (06/08/2024 1:18 PM GROCERY SACKER) [facility] Albumin Ur 68.0 mg/L Comment: Interpretive Data No reference range established. Current interpretive data was last revised 2018. Creatinine Ur 32.5 mg/dL [facility] Comment: Interpretive Data No reference range established. Current interpretive data was last revised 2018. Albumin Creatinine Ratio, Ur 209(H) 1 - 29 mg/g JOSE MIGUEL Urine 06/08/2024 1:18 PM GROCERY SACKER 06/08/2024 7:31 PM GROCERY SACKER Terra CRUZ LAB URINE ORDERABLES Fi nal Result JOSE MIGUEL [address] Jose Francisco Mauro Department of Laboratories [place], [place] [id number] * (ABNORMAL) POCT lipid panel (06/08/2024 1:18 AM GROCERY SACKER) Cholesterol, POC 154 mg/dL HDL, POC 25 mg/dL Triglycerides, POC 271 mg/dL LDL Cholesterol POC 75 mg/dL Chol/HDL Ratio, POC 6.2 Non-HDL Cholesterol, POC 129 mg/dL Cholesterol Total, POC 154 mg/dL Capillary blood 06/08/2024 1 :18 AM GROCERY SACKER Terra CRUZ POINT OF CARE TEST ORDE RABAMBER Final Result * (ABNORMAL) HM CREATININE (05/31/2024 12:52 PM GROCERY SACKER) SCRIBED Creatinine 2.16(A) 0.7 - 1.3 mg/dl EXTERNAL LAB SCRIBED eGFR in NonAfrican Andorran 30 >59 - NA EXTERNAL LAB Blood 05/31/2024 12:5 2 PM GROCERY SACKER Result [facility] Historical Provider HEALTH MAINTENANCE Edited Result - Final EXTERNAL LAB * Hepatitis C Antibody Reflex Hepatitis C RNA Quantitative PCR Blood (06/14/2019 3:47 PM GROCERY SACKER) Hep C Ab Negative Negative JOSE MIGUEL BOWERS Blood specimen (specimen) 06/14/2019 3:47 PM GROCERY SACKER 06/14/2019 8:03 PM GROCERY SACKER Result [facility] Notinfile Unknown LAB MICROBIOLOGY - GENERAL ORD ERABLES Final Result OJSE MIGUEL BOWERS [address] Jose Francisco Mauro Department of Laboratories [place], [place] [id number] * COLONOSCOPY REPORT (05/18/2014) Anatomical Region Laterality Modality Other Narrative 05/18/2014 Ordered by an unspecified provider. Result [facility] Historical Provider GI PROCEDURE ORDERABLES F inal Result from Last 3 Months or Most Recently Relevant to Health Maintenance Insurance [employer] CHOICE MEDICARE PPO HU[employer]NA CHOICE MEDICARE PPO HUMANA CHOICE MEDICARE PPO HUMANA CHOICE MEDICARE PPO Advance Directives For more information, please contact: [phone] * Full Code (Latest Code Status on File) Date Activated Date Inactivated Comments 06/30/2022 6:44 PM 07/03/2022 5:32 PM * Full Code Date Activated Date Inactivated Comments 06/30/2022 6:39 PM 06/30/2022 6:44 PM * Full Code Date Activated Date Inactivated Comments 01/29/2022 2:14 PM 01/30/2022 6:06 PM * Full Code Date Activated Date Inactivated Comments 09/03/2021 12:10 PM 09/04/2021 7:37 PM Care Teams Director Cardiac Relationship Specialty Start Date End Date Rafa Chavez DO [address] [facility] [address] [place] [address] PCP - General Internal Medicine 06/01/24 Yfn Gill MD Referring Physician Nephrology 01/22/22 Augila Chris MD Consulting Physician Cardiology 01/22/22 [place] [address] [address] Consulting Physician Endocrinology Diabetes & Metabolism 01/22/22 Neeraj La MD [address] [place] [address] Surgeon Vascular Surgery 01/30/22
--- OUTSIDE RECORDS SUMMARY | 2024-10-02 14:51 | XMS_ITS | Clinical Summary ---
Author Organization [facility] Address [address] [place] [address] Phone Care Team Providers Care Amphibious Operations Officer Name Role Phone Arnel Gonzalez DO Primary Care Provider [phone] Allergies Active Allergy Reactions Criticality Noted Date [...] 300 MG tablet 04/14/2020 Active Droplet Pen [place] 31G X 5 MM misc 07/28/2020 Active [...] 12/22/2021 Active ergocalciferol (VITAMIN D2) 1.25 MG (96705 UT) capsule TAKE ONE CAPSULE BY MOUTH [...] diabetes mellitus with complication Coronary arteriosclerosis in muscogee artery 01/29 Overview (03/06/2019): CAD (coronary artery disease) Coronary artery disease involving mus[place]ogee coronary artery of mus[place]ogee heart without angina pectoris Coronary atherosclerosis 01/29/2015 Overview (08/30/2020): CAD (coronary artery disease) Coronary artery disease involving mus[place]og[place] coronary artery of muscogee heart without angina pectoris H/O: artificial heart [...] 3:00 PM CDT Height 172.7 cm (5' 8) 11/17/2021 3:00 PM CDT Body Mass Index [...] history exists Insurance MEDICARE ADVANTAGE Care Teams Amphibious Operations Officer Relationship Specialty Start Date End Date Arnel Gonzalez DO [address] [place] [address] PCP - General Internal Medicine 01/31/19
--- OUTSIDE RECORDS SUMMARY | 2024-10-02 14:51 | XMS_ITS | Encounter Summary ---
Author Organization [facility] Address [address] [place] [address] Care Team Providers Care Cotton Dispatcher Name Role Phone Yfn Gill MD Unavailable [phone] Aguila Chris MD Unavailable Malcolm Castro MD Unavailable [phone] Neeraj La MD Unavailable [phone] Rafa Chavez DO Primary Care Provider [phone] Encounter Details Date Type Department Care Team (Latest Contact Info) Description 09/27/2024 Results Follow-Up [facility] [address] [facility] [address] [place] [address] aNbil Jacobs MD [address] [place] [address] [address] [facility] [address] [place] [address] Transthoracic Echo (TTE) Complete W Doppler/CF Social History Tobacco Use Types Packs/Day Years [...] you are drinking? Patient does not drink 4 Q3: How often do you have si [...] on file Legal Sex Male 1:58 AM FURNITURE DECALS INSPECTOR Gender Identity Not on file Sexual Orientation Not on file documented as of this encounter Plan of Treatment Not on file documented as of this encounter Goals Goal Patient Goal Type Associated Problems Recent Progress Patient-Stated? Author CCM Chronic Pain Care Plan Chronic Care Management No change(04/14 11:08 AM FURNITURE DECALS INSPECTOR) Pool Welch, KATHERINE Note: Problem: Chronic Pain Goals: 1. Minimize further functional decline 2. Maximize quality of life 3. Control pain Strategies: - Activity/exercise program recommendation - Conservative stepwise pain medicine strategy with multi-disciplinary approach - Recommend healthy lifestyle strategies and compensatory methods as needed documented as of this encounter Visit Diagnoses Not on filedocumented in this encounter Care Teams Cotton Dispatcher Relationship Specialty Start Date End Date Rafa Chavez DO [address] [facility] [address] [place] [address] PCP - General Internal Medicine 06/01/24 Yfn Gill MD Referring Physician Nephrology 01/22/22 Aguila Chris MD Consulting Physician Cardiology 01/22/22 [place] [address] [address] Consulting Physician Endocrinology Diabetes & Metabolism 01/22/22 Neeraj La MD [address] [facility] [id number] [place] [address] Surgeon Vascular Surgery 01/30/22 documented as of this encounter
--- OUTSIDE RECORDS SUMMARY | 2024-10-02 14:51 | XMS_ITS | Data Portability ---
Author Organization [place] - [facility] [employer], Main Office Address [address] [place] [address] Care Team Providers Care Vulcan Crewmember Name Role Phone HOLDEN CAIN Primary Care Provider HOLDEN CAIN Referring Provider Assessment Encounter Date Assessment Date Assessment LastModified by Organization Details LastModified Time 01/27/2024 01/27/2024 This note is dictated and transcribed by [employer]. Line Mover variances may occur. Despite proofreading, typographical errors may occur. Occasional wrong-word or 'shvjv-s-cnii' substitutions may have occurred due to the inherent limitations of voice recording. Read the chart carefully and recognize, using context, where substitutions have occurred. Not available 01/27/2024 14:32:20 05/11/2024 05/11/2024 This note is dictated and transcribed by [employer]. Line Mover variances may occur. Despite proofreading, typographical errors may occur. Occasional wrong-word or 'jwovd-a-tdrj' substitutions may have occurred due to the inherent limitations of voice recording. Read the chart carefully and recognize, using context, where substitutions have occurred. Not available 05/11/2024 16:20:38 08/07/2024 08/07/2024 This note is dictated and transcribed by [employer]. Line Mover variances may occur. Despite proofreading, typographical errors may occur. Occasional wrong-word or 'bfryu-b-dwwi' substitutions may have occurred due to the [...] acetonide 0.1 % topical cream 2024 025 [facility], [address], [place], [address], 08/07/2024 16:35:20 ammonium lactate 12 % lotion 2022 023 [facility] #[id number], [address], [place], [address], 03/30/2023 15:16:36 Patient TargetsNo targets recorded. Patient Instructions Encounter Date Encounter Id Patient Instructions Last Modified By Organization Details Last Modified Time 05/11/2024 [id number] diabetic foot care education Not available 05/11/2024 16:21:28 Reason for Referral None Reported. Problems Name Problem SNOMED Code Status Onset Date Resolution Date Notes Provider Name and Address Organization Details Recorded Time Arthritis 2434682 Active 2022 Yovana crooks [place] - [facility] 3 14:52:19 Diabetes mellitus 61546361 Active 2022 Yovana crooks [facility] 3 14:52:25 Ear problem 402657110 Active 2022 Yovana crooks [facility] 3 14:52:32 Disorder of eye 973648400 Active 2022 Yovana crooks [facility] 3 14:52:40 Heart disease 25537270 Active 2022 Yovana crooks [facility] 3 14:52:46 Hyperchole sterolemia 14787770 Active 2022 Yovana crooks [facility] 3 14:52:56 Kidney disease 88025852 Active 2022 Yovana crooks [facility] 3 14:53:05 Obesity 169864897 Active 2022 Yovana crooks, [facility] 3 14:53:12 Sleep disorder 41425050 Active 2022 Yovana crooks, [facility] 3 14:53:29 Dystrophia unguium 27252412 Active 2022 Merrick Cardoso DPM [address], [address], [place], [address] , [facility] 3 15:14:00 Acquired hallux limitus of right great toe 6536221088790 100 Active 2022 Merrick Cardoso DPM [address], [address], [place], [address] , [facility] 3 15:14:44 Foot callus 808384361 Active 2022 Merrick Cardoso DPM [address], [address], [place], [address] , [facility] 3 15:15:32 Fissure in skin 39141908 Active 2022 Merrick Cardoso DPM [address], [address], [place], [address] , [facility] 3 15:15:39 Edema of lower extremity 082017729 Active 2024 Merrick Cardoso DPM [address], [address], [place], [address] , [facility] 5 16:21:15 Severe dry skin 307485167 Active 2024 Merrick Cardoso DPM [address], [address], [place], [address] , [facility] 5 16:34:39 Notes:back/neck problem, pro state, urinary/bladder/kidney problems, use of blood thinners Problem Notes None recorded. Procedures Surgical History Date Name Laterality Status Provider Name and Address Organization Details Recorded Time 01/27/20 24 Nail Debridement completed Merrick Cardoso DPM [address], [address], [place], [address], [facility] [employer] [facility] 01/27/2024 14:31:56 01/12/20 23 Nail Debridement completed Merrick Cardoso DPM [address], [place], [address], [facility] [employer] [facility] 01/11/2023 15:13:45 Knee Surgery completed Not Available [facility] 07/01/2022 13:12:58 procedure on heart completed Not Available [facility] 07/01/2022 13:12:58 procedure on urinary bladder completed Not Available [facility] 07/01/2022 13:12:58 Imaging Results None recorded. Procedure Notes None recorded. Medical Equipment None Reported. Allergies Allergen ID Allergen Name Allergen Category Reaction Reaction Severity Criticality Documentation Date Start Date Code Code System Note Provider Name and Address Organization Details Recorded Time 42080 codeine medicatio n itching Not available Not available 07/01/2022 2670 RxNorm Not Available [facility] 13:15:32 Medications Name Sig Start [...] Available Droplet Pen Needle 31 gauge x 3/ active Not Available Not Available Not Available [...] Updated DateTime 5 172.72 cm 39.5 kg/m2 057457. 02 g 102 /min 16 /min 97 % 97 % 126 mm[Hg] 66 mm[Hg] Marta L[facility] - [facility] [employer] [facility] 5 15:19:04 Date Recorded Body height Body mass index (BMI) Body weight Heart rate Respiratory rate Oxygen saturation Oxygen saturation in Arterial blood by Pulse oximetry Systolic blood pressure Diastolic blood pressure Provider Name and Address Organization Details Last Updated DateTime 4 172.72 cm 39.5 kg/m2 356174. 02 g 96 /min 14 /min 98 % 98 % 163 mm[Hg] 77 mm[Hg] Marta Reinaldo [facility] [employer] [facility] 4 16:40:20 Date Recorded Body height Body mass index (BMI) Body weight Heart rate Respiratory rate Body temperature Oxygen saturation Oxygen saturation in Arterial blood by Pulse oximetry Systolic blood pressure Diastolic blood pressure Provider Name and Address Organization Details Last Updated DateTime 5 172.72 cm 39.5 kg/m2 315050. 02 g 87 /min 18 /min 97.6 [degF] 97 % 97 % 120 mm[Hg] 80 mm[Hg] Deanna Navarrete [facility] [employer] [facility] 5 16:07:45 Date Recorded Body height Body mass index (BMI) Body weight Heart rate Respiratory rate Oxygen saturation Oxygen saturation in Arterial blood by Pulse oximetry Systolic blood pressure Diastolic blood pressure Provider Name and Address Organization Details Last Updated DateTime 4 172.72 cm 39.5 kg/m2 828081. 02 g 85 /min 14 /min 98 % 98 % 137 mm[Hg] 75 mm[Hg] Marta Najera [facility] [employer] [facility] 4 14:11:03 Date Recorded Body height Body mass index (BMI) Body weight Heart rate Respiratory rate Oxygen saturation Oxygen saturation in Arterial blood by Pulse oximetry Systolic blood pressure Diastolic blood pressure Provider Name and Address Organization Details Last Updated DateTime 3 172.72 cm 39.5 kg/m2 048250. 02 g 99 /min 14 /min 97 % 97 % 143 mm[Hg] 73 mm[Hg] Marta Najera [facility] [employer] [facility] 3 14:38:18 Social History None recorded. Functional Status Question Answer Note LastModified by Organization D etails LastModified Time What is your level of alcohol consumption? None [email or web address] Information not available 01/11/2023 Mental Status None recorded. Family History Relationship Description Onset Age of this Age Resolved Age Notes LastModified by Organization Details LastModified Time Unspecified Relation Hypertensive disorder [id number] Not available 07/01/2022 13:12:59 Unspecified Relation Diabetes mellitus [id number].674 [id number] Not available 07/01/2022 13:12:59 Unspecified Relation Kidney disease [id number].118 [id number] Not available 07/01/2022 13:12:59 Unspecified Relation Arthritis [...] HAVE YOU BEEN HOSPITALIZED OR SEEN IN [facility] IN THE PAST YEAR ? N [...] SNOMED-CT Code Diagnosis ICD10 Code Diagnosis Note [id number] Gorge Griffin MD [facility]_[address] [address] 02/13/2021 00:00:00 02/13/2021 11:18:11 [id number] Merrick Cardoso DPM [facility] [place] [address] [place] [address] 01/11/2023 14:37:23 01/20/2023 11:58:11 Diabetes mellitus 92512672 E11.40 Patient educated on neuropathy , diabetes, diabetic diet, and daily foot exams. Patient is to check feet daily for new wounds, blisters, redness to prevent infection and ulceration s to the feet. Patient will return to clinic in 3 months for diabetic foot workup. Dystrophia unguium 48306 009 L60.3 left great toenailDeb rided without incident follow-up as needed Acquired h allux limitus of right great toe 6025514915 542425 M20.5X1 educated on conditionC ontinue supportive shoe gearRange of motion exercises dailyRice therapyFol low-up as needed [id number] Merrick Cardoso DPM [facility] [place] [address] [place] [address] 03/30/2023 14:22:28 04/02/2023 09:27:28 Foot callus 432513284 L84 right footuse p[place] dailyfollo w up as needed Fissure in skin 95088508 R23.4 keep area cleancont DM insolesmay require more support to prevent sheering in shoes [id number] Merrick Cardoso DPM [facility] [place] [address] [address] 07/06/2023 16:36:52 07/07/2023 13:50:23 Foot callus 220599763 L84 resolvedus e pumas stone dailyno further paincont supportive shoefollow up as needed [id number] Merrick Cardoso DPM [facility] [place] [address] [place] [address] 01/27/2024 13:57:23 01/27/2024 14:38:22 Diabetes mellitus 30118686 E11.40 continue diabetic control per PCP recommenda tion Acquired h allux limitus of right great toe 5363162107 911210 M20.5X1 educated on conditionC ontinue supportive shoe gearRange of motion exercises dailyRice therapywil l monitor Dystrophia unguium 63977 009 L60.3 left great toenailtoe nails debrided without incident [id number] Merrick Cardoso DPM [facility] [place] [address] [place] [address] 05/11/2024 15:12:23 05/16/2024 15:30:57 Diabetes mellitus 63645862 E11.40 continue diabetic control per PCP recommenda tionrecomm end supportive shoe gearCheck foot daily for wounds infectionF ollow-up in 3 months for diabetic foot care Edema of l ower extremity 801523667 R60.0 recommend chronic compressio n stockings bilateral lower extremityW hen at rest elevate legsLow-so dium diet [id number] Merrick Cardoso DPM [facility] [place] [address] [place] [address] 08/07/2024 15:38:52 08/21/2024 10:51:48 Fissure in skin 28516685 R23.4 keep area cleancont DM insolesmay require more support to prevent sheering in shoesfollo w-up 1 week if not healed Severe dry skin 66774263 2 L85.3 right plantar foot Health Concerns Section Related Observation LastModified by Organization Detai ls LastModified Time None Recorded Concern Status LastModified by Organization Details LastModified Time None Recorded Advance Directives Directive None Recorded Payers Encounter Date Sequence Insurance Name Policy Number Policy Fraga Covered Member ID Farga Member ID Guarantor Name 03/30/2023 1 [employer] (MEDICARE REPLACEMENT/A DVANTAGE - PPO) Gabriel Celeste [id number] Gabriel Celeste 07/06/2023 1 [employer] (MEDICARE REPLACEMENT/A DVANTAGE - PPO) Gabriel Celeste [id number] Gabriel Celeste 01/27/2024 1 [employer] (MEDICARE REPLACEMENT/A DVANTAGE - PPO) Gabriel Celeste [id number] Gabriel Celeste 05/11/2024 1 [employer] (MEDICARE REPLACEMENT/A DVANTAGE - PPO) Gabriel Celeste [id number] Gabriel Celeste 08/07/2024 1 [employer] (MEDICARE REPLACEMENT/A DVANTAGE - PPO) Gabriel Wells Roula [id number] Gabriel D Roula Notes Date Note Type Note Provider Name and Address Organization Details Recorded Time 3 text/html Patient is a 77 yr old male who presents for callus to the plantar foot. Patient denies any wounds. Patient denies any other pedal complaints. Merrick Cardoso DPM [address], [address], [place], [address], [facility] 04/02/2023 09:14:24 4 text/html Patient follows up for callus, he states with proper shoe gear and use of pumas stone he no longer has pain or the callus. Denies any new complaints. Merrick Cardoso DPM [address], [place], [address], [facility] 07/07/2023 10:04:27 4 text/html . Patient is a 78-year-old male who returns the office for diabetic foot care. Patient denies any open wounds or infection. Patient denies any pain at the arthritic 1st metatarsophalangeal joint states he continues to walk with a cane is not very active. Patient denies any other complaints would like his nails cut. Merrick Cardoso DPM [address], [place], [address], [facility] 01/27/2024 14:33:25 5 text/html . Patient is a 78-year-old male diabetic who returns the office for routine diabetic foot care. Patient states overall he is doing well denies any wounds or infection of the feet. Patient does have swelling of his lower extremities that is ezdq-wf-uoojyety in nature he denies any calf pain or open wounds to the lower legs I did recommend compression stockings he is currently being evaluated for congestive heart failure. Patient denies any other complaints. Merrick Cardoso DPM [address], [place], [address], [facility] 05/11/2024 16:21:52 5 text/html . Patient is [...] of the fissure. Merrick Cardoso DPM [address] [facility] [address], [place], [address], [facility] [employer] 08/21/2024 09:42:51
[2024-10-02 15:26] LABS: Hematocrit 40.7 % (42.0-52.0); Hemoglobin 13.5 g/dL (14.0-18.0); Mean Corpuscular HGB Conc 33.2 g/dl (32-36); Mean Corpuscular Hemoglobin 29.4 pg (26-34); Mean Corpuscular Volume 88.7 fl (80-100); Mean Platelet Volume 9.9 fl (7.4-10.4); Platelet Count Result 177 k/mm3 (150-375); Red Blood Count 4.59 M/mm3 (4.6-6.20); Red Cell Distribution Width 14.1 % (11.5-14.5); White Blood Count 7.4 K/mm3 (4.5-10.0)
[2024-10-02 15:41] LABS: Albumin Level 4.5 g/dL (3.5-5.1); Anion Gap 10 mmol/L (4-12); Blood Urea Nitrogen 39 mg/dL (9-20); Calcium 9.3 mg/dL (8.4-10.2); Carbon Dioxide 35 mmol/L (22-30); Chloride 92 mmol/L (98-107); Estimated Glomerular Filt Rate 31; Glucose 326 mg/dL (65-110); Potassium 3.4 mmol/L (3.4-5.0); Sodium 137 mmol/L (137-145)
[2024-10-02 16:02] LABS: Parathyroid Intact 243.9 pg/mL (14.5-75.2)
[2024-10-02 16:05] LABS: Total Protein Urine Random 17 mg/dL; Ur Ttl Prot Creatinine Ratio 0.59 mg/mg (0-0.20)
== END 2024-10-02 14:35 | disposition home or self-care (01) ==
LOC: ANHLAB 14:36
PROVIDERS: PCP Internal Medicine; Referring Provider Urology; Visit Provider Internal Medicine Nephrology
DX: N39.0 Urinary tract infection, site not specified (principal); I12.9 Hypertensive chronic kidney disease with stage 1 through stage 4 chronic kidney disease, or unspecified chronic kidney disease; N18.32 Chronic kidney disease, stage 3b
CPT/HCPCS: 36415; 80069; 82570; 83970; 84156; 85027; 87086

== ENCOUNTER 2024-11-08 12:21 | Outpatient (CLI) | payer MEDICARE, SELFPAY ==
--- OUTSIDE RECORDS SUMMARY | 2024-11-08 12:32 | XMS_ITS | Clinical Summary ---
Author Organization [facility] Address [address] [place] [address] Phone Care Team Providers Care Office Spec Name Role Phone Arnel Gonzalez DO Primary Care Provider [phone] Allergies Active Allergy Reactions Criticality Noted Date [...] 300 MG tablet 04/14/2020 Active Droplet Pen [place] 31G X 5 MM misc 07/28/2020 Active [...] 12/22/2021 Active ergocalciferol (VITAMIN D2) 1.25 MG (48529 UT) capsule TAKE ONE CAPSULE BY MOUTH [...] diabetes mellitus with complication Coronary arteriosclerosis in [place] artery 01/29 Overview (03/06/2019): CAD (coronary artery disease) Coronary artery disease involving [place] coronary artery of [place] heart without angina pectoris Coronary atherosclerosis 01/29/2015 Overview (08/30/2020): CAD (coronary artery disease) Coronary artery disease involving [place] coronary artery of [place] heart without angina pectoris H/O: artificial heart [...] and Medium Risk (2 of 3 - PCV20 or PCV21) 01/31/2018 01/31/2017 COVID-19 Vaccine (2 - 2024-2 5 season) 2024 03/11/2021 Influenza Vaccine (#1) 2025 , 03/03/2020, 02/01/2020, Additional history exists Insurance MEDICARE ADVANTAGE Care Teams Office Spec Relationship Specialty Start Date End Date Arnel Gonzalez DO [address] [address] PCP - General Internal Medicine 01/31/19
--- OUTSIDE RECORDS SUMMARY | 2024-11-08 12:32 | XMS_ITS | Data Portability ---
Author Organization [place] [employer], Main Office Address [address] [place] [address] Care Team Providers Care Alcoholic Counselor Name Role Phone HOLDEN CAIN Primary Care Provider HOLDEN CAIN Referring Provider [phone] Assessment Encounter Date Assessment Date Assessment LastModified by Organization Details LastModified Time 01/27/2024 01/27/2024 This note is dictated and transcribed by [employer]. Agency Service Representative variances may occur. Despite proofreading, typographical errors may occur. Occasional wrong-word or 'axuqk-f-kxhc' substitutions may have occurred due to the inherent limitations of voice recording. Read the chart carefully and recognize, using context, where substitutions have occurred. Not available 01/27/2024 14:32:20 05/11/2024 05/11/2024 This note is dictated and transcribed by [employer]. Agency Service Representative variances may occur. Despite proofreading, typographical errors may occur. Occasional wrong-word or 'edeus-i-zvqh' substitutions may have occurred due to the inherent limitations of voice recording. Read the chart carefully and recognize, using context, where substitutions have occurred. Not available 05/11/2024 16:20:38 08/07/2024 08/07/2024 This note is dictated and transcribed by [employer]. Agency Service Representative variances may occur. Despite proofreading, typographical errors may occur. Occasional wrong-word or 'ahvxp-f-pefv' substitutions may have occurred due to the inherent limitations of voice recording. Read the chart carefully and recognize, using context, where substitutions have occurred. Not available 08/07/2024 16:35:43 Plan of Treatment Reminders Order Date Submit Date Provider Last Modified By Organization Details Last Modified Time Details Appointments Establish ed Patient 15 2024 03:00P M Merrick Cardoso DPM Not available Not available Not available Lab None recorded. Referral None recorded. Procedures None recorded. Surgeries None recorded. Imaging None recorded. Medication Orders triamcino lone acetonide 0.1 % topical cream 2024 025 [facility], [address], [place], [address], 08/07/2024 16:35:20 ammonium lactate 12 % lotion [address] [facility] #[id number], [address], [place], [address], 03/30/2023 15:16:36 Patient TargetsNo targets recorded. Patient Instructions Encounter Date Encounter Id Patient Instructions Last Modified By Organization Details Last Modified Time 05/11/2024 [id number] diabetic foot care education Not available 05/11/2024 16:21:28 Reason for Referral None Reported. Problems Name Problem SNOMED Code Status Onset Date Resolution Date Notes Provider Name and Address Organization Details Recorded Time Arthritis 5439279 Active 2022 Yovana crooks [facility] 3 14:52:19 Diabetes mellitus 82839048 Active 2022 Yovana crooks [facility] 3 14:52:25 Ear problem 354148319 Active 2022 Yovana crooks [facility] 3 14:52:32 Disorder of eye 002388218 Active 2022 Yovana crooks [facility] 3 14:52:40 Heart disease 19399471 Active 2022 Yovana crooks [facility] 3 14:52:46 Hyperchole sterolemia 22511246 Active 2022 Yovana crooks [facility] 3 14:52:56 Kidney disease 69792588 Active 2022 Yovana crooks, [facility] 3 14:53:05 Obesity 289623898 Active 2022 Yovana Arvizu null, [facility] 3 14:53:12 Sleep disorder 23969384 Active 2022 Yovana crooks, [facility] 3 14:53:29 Dystrophia unguium 98071271 Active 2022 Merrick Cardoso DPM [address], [address], [place], [address] , [facility] 3 15:14:00 Acquired hallux limitus of right great toe 5141629607410 100 Active 2022 Merrick Cardoso DPM [address], [address], [place], [address] , [facility] 3 15:14:44 Foot callus 049922079 Active 2022 Merrick Cardoso DPM [address], [address], [place], [address] , [facility] 3 15:15:32 Fissure in skin 08792512 Active 2022 Merrick Cardoso DPM [address], [address], [place], [address] , [facility] 3 15:15:39 Edema of lower extremity 123935123 Active 2024 Merrick Cardoso DPM [address], [place], [address] , [facility] 5 16:21:15 Severe dry skin 818797113 Active 2024 Merrick Cardsoo DPM [address], [place], [address] , [facility] 5 16:34:39 Notes:back/neck problem, pro state, urinary/bladder/kidney problems, use of blood thinners Problem Notes None recorded. Procedures Surgical History Date Name Laterality Status Provider Name and Address Organization Details Recorded Time 01/27/20 24 Nail Debridement completed Merrick Cardoso DPM [address], [address], [place], [address], [facility] 01/27/2024 14:31:56 01/12/20 23 Nail Debridement completed Merrick Cardoso DPM [address], [place], [address], [facility] 01/11/2023 15:13:45 Knee Surgery completed Not Available [facility] 07/01/2022 13:12:58 procedure on heart completed Not Available [facility] 07/01/2022 13:12:58 procedure on urinary bladder completed Not Available [facility] 07/01/2022 13:12:58 Imaging Results None recorded. Procedure Notes None recorded. Medical Equipment None Reported. Allergies Allergen ID Allergen Name Allergen Category Reaction Reaction Severity Criticality Documentation Date Start Date Code Code System Note Provider Name and Address Organization Details Recorded Time 89661 codeine medicatio n itching Not available Not available 07/01/2022 2670 RxNorm Not Available [facility] 13:15:32 Medications Name Sig Start [...] in Arterial blood by Pulse oximetry Systolic And Diastolic Provider Name and Address Organization Details Last Updated DateTime 5 172.72 cm 39.5 kg/m2 017309. 02 g 102 /min 16 /min 97 % 97 % 126/66 mm[Hg] Marta LAMB - Anisha [place] [facility] 5 15:19:04 Date Recorded Body height Body mass index (BMI) Body weight Heart rate Respiratory rate Oxygen saturation Oxygen saturation in Arterial blood by Pulse oximetry Systolic And Diastolic Provider Name and Address Organization Details Last Updated DateTime 4 172.72 cm 39.5 kg/m2 467811. 02 g 96 /min 14 /min 98 % 98 % 163/77 mm[Hg] Marta Reinaldo [facility] 4 16:40:20 Date Recorded Body height Body mass index (BMI) Body weight Heart rate Respiratory rate Body temperature Oxygen saturation Oxygen saturation in Arterial blood by Pulse oximetry Systolic And Diastolic Provider Name and Address Organization Details Last Updated DateTime 5 172.72 cm 39.5 kg/m2 791391. 02 g 87 /min 18 /min 97.6 [degF] 97 % 97 % 120/80 mm[Hg] Deanna Rosalba [facility] 5 16:07:45 Date Recorded Body height Body mass index (BMI) Body weight Heart rate Respiratory rate Oxygen saturation Oxygen saturation in Arterial blood by Pulse oximetry Systolic And Diastolic Provider Name and Address Organization Details Last Updated DateTime 4 172.72 cm 39.5 kg/m2 853131. 02 g 85 /min 14 /min 98 % 98 % 137/75 mm[Hg] Marta Najera [facility] 4 14:11:03 Date Recorded Body height Body mass index (BMI) Body weight Heart rate Respiratory rate Oxygen saturation Oxygen saturation in Arterial blood by Pulse oximetry Systolic And Diastolic Provider Name and Address Organization Details Last Updated DateTime 3 172.72 cm 39.5 kg/m2 025963. 02 g 99 /min 14 /min 97 % 97 % 143/73 mm[Hg] Marta Najera [facility] 3 14:38:18 Social History None recorded. Functional Status Question Answer Note LastModified by Organization D etails LastModified Time What is your level of alcohol consumption? None [email or web address] Information not available 01/11/2023 Mental Status None recorded. Family History Relationship Description Onset Age of this Age Resolved Age Notes LastModified by Organization Details LastModified Time Unspecified Relation Hypertensive disorder [id number] Not available 07/01/2022 13:12:59 Unspecified Relation Diabetes mellitus [id number] Not available 07/01/2022 13:12:59 Unspecified Relation Kidney disease [id number] Not available 07/01/2022 13:12:59 Unspecified Relation Arthritis [...] HAVE YOU BEEN HOSPITALIZED OR SEEN IN [facility] ER IN THE PAST YEAR ? N [...] SNOMED-CT Code Diagnosis ICD10 Code Diagnosis Note [id number] Gorge Griffin MD [facility] [address] [address] 02/13/2021 00:00:00 02/13/2021 11:18:11 [id number] Merrick Cardoso DPM [facility] [place] [address] [place] [address] 01/11/2023 14:37:23 01/20/2023 11:58:11 Diabetes mellitus 84650480 E11.40 Patient educated on neuropathy , diabetes, diabetic diet, and daily foot exams. Patient is to check feet daily for new wounds, blisters, redness to prevent infection and ulceration s to the feet. Patient will return to clinic in 3 months for diabetic foot workup. Dystrophia unguium 64812 009 L60.3 left great toenailDeb rided without incident follow-up as needed Acquired h allux limitus of right great toe 2323565678 073984 M20.5X1 educated on conditionC ontinue supportive shoe gearRange of motion exercises dailyRice therapyFol low-up as needed [id number] Merrick Cardoso DPM [facility] [place] [address] [address] 03/30/2023 14:22:28 04/02/2023 09:27:28 Foot callus 887146666 L84 right footuse pumas stone dailyfollo w up as needed Fissure in skin 44713954 R23.4 keep area cleancont DM insolesmay require more support to prevent sheering in shoes [id number] Merrick Cardoso DPM [facility] [place] [address] [place] [address] 07/06/2023 16:36:52 07/07/2023 13:50:23 Foot callus 716069604 L84 resolvedus e pumas stone dailyno further paincont supportive shoefollow up as needed [id number] Merrick Cardoso DPM [facility] [place] [address] [place] [address] 01/27/2024 13:57:23 01/27/2024 14:38:22 Diabetes mellitus 07351690 E11.40 continue diabetic control per PCP recommenda tion Acquired h allux limitus of right great toe 1611188877 514843 M20.5X1 educated on conditionC ontinue supportive shoe gearRange of motion exercises dailyRice therapywil l monitor Dystrophia unguium 76691 009 L60.3 left great toenailtoe nails debrided without incident [id number] Merrick Cardoso DPM [facility] [place] [address] [place] [address] 05/11/2024 15:12:23 05/16/2024 15:30:57 Diabetes mellitus 23368420 E11.40 continue diabetic control per PCP recommenda tionrecomm end supportive shoe gearCheck foot daily for wounds infectionF ollow-up in 3 months for diabetic foot care Edema of l ower extremity 088161760 R60.0 recommend chronic compressio n stockings bilateral lower extremityW hen at rest elevate legsLow-so dium diet [id number] Merrick Cardoso DPM [facility] [place] [address] [place] [address] 08/07/2024 15:38:52 08/21/2024 10:51:48 Fissure in skin 20555715 R23.4 keep area cleancont DM insolesmay require more support to prevent sheering in shoesfollo w-up 1 week if not healed Severe dry skin 57869465 2 L85.3 right plantar foot Health Concerns Section Related Observation LastModified by Organization Detai ls LastModified Time None Recorded Concern Status LastModified by Organization Details LastModified Time None Recorded Advance Directives Directive None Recorded Payers Insurance Date Sequence Insurance Name Policy Number Policy Fraga Covered Member ID Fraga Member ID Guarantor Name 08/21/2024 1 [employer] (MEDICARE REPLACEMENT/A DVANTAGE - PPO) Gabriel Celeste [id number] Gabriel Celeste Notes Date Note Type Note Provider Name and Address Organization Details Recorded Time 3 text/html Patient is a 77 yr old male who presents for callus to the plantar foot. Patient denies any wounds. Patient denies any other pedal complaints. Merrick Cardoso DPM [address] [address], [place], [address], [facility] [employer] [facility] [employer] 04/02/2023 09:14:24 4 text/html Patient follows up for callus, he states with proper shoe gear and use of pumas stone he no longer has pain or the callus. Denies any new complaints. Merrick Cardoso DPM [address], [place], [address], [employer] 07/07/2023 10:04:27 4 text/html . Patient is [...] Cardoso DPM [address], [place], [address], [employer] 01/27/2024 14:33:25 5 text/html . Patient is a 78-year-old male diabetic who returns the office for routine diabetic foot care. Patient states overall he is doing well denies any wounds or infection of the feet. Patient does have swelling of his lower extremities that is olli-wt-ceuojxzo in nature he denies any calf pain or open wounds to the lower legs I did recommend compression stockings he is currently being evaluated for congestive heart failure. Patient denies any other complaints. Merrick Cardoso DPM [address], [place], [address], [employer] 05/11/2024 16:21:52 5 text/html . Patient is [...] area of the fissure. Merrick Cardoso DPM [address], [place], [address], [employer] 08/21/2024 09:42:51
--- OUTSIDE RECORDS SUMMARY | 2024-11-08 12:32 | XMS_ITS | Clinical Summary ---
Author Organization [facility] Address [address] [place] [address] Care Team Providers Care Forestry And Wildlife Manager Name Role Phone Arnel Gonzalez MD Primary Care Provider [phone] Allergies Active Allergy Reactions Criticality Noted Date Comments Codeine Itching Medium 08/08/2013 Tramadol Nausea and Vomiting,Unknown Low 10/19/19 18 Medications HYDROCHLOROTHI AZIDE OR 25 mg daily. 3 Active lisinopril (PRINIVIL) 20 MG tablet Take 1 tablet (20 mg total) by mouth 2 (two) times daily. 3 Active ASPIRIN 81 OR 81 mg daily. 3 Active allopurinol (ZYLOPRIM) 300 MG tablet Take 1 tablet (300 mg total) by mouth daily. 3 Active amLODIPine (NORVASC) 10 MG tablet Take 0.5 tablets (5 mg total) by mouth daily. 3 Active omeprazole (PRILOSEC) 20 MG capsule Take 1 capsule (20 mg total) by mouth daily. Active hydrALAZINE (APRESOLINE) 50 MG tablet Take 1 tablet (50 mg total) by mouth 2 (two) times daily. 3 Active rosuvastatin (CRESTOR) 10 MG tablet Take 1 tablet (10 mg total) by mouth daily. Active terazosin (HYTRIN) 10 MG capsule Take 2 capsules (20 mg total) by mouth daily. Active nitroglycerin (NITROSTAT) 0.[address] 1 tablet (0.4 mg total) under the tongue every 5 (five) minutes as needed. Active Multiple Vitamin (MULTI-VITAMIN ) tablet Take 1 tablet by mouth daily. 3 Active HUMULIN R U-500 KWIKPEN 500 UNIT/ML injection 4 Active FARXIGA 5 MG Tab 5 mg daily. 3 Active clopidogrel (PLAVIX) 75 MG tablet Take 1 tablet (75 mg total) by mouth daily. 3 Active calcitriol (ROCALTROL) 0.25 MCG capsule Take 1 capsule (0.25 mcg total) by mouth. Three times a week 4 Active Alpha-Lipoic Acid 600 MG Tab Take 1 tablet by mouth daily. Active amitriptyline (ELAVIL) 25 MG tablet Take 1 tablet (25 mg total) by mouth nightly at bedtime. 3 Active semaglutide (OZEMPIC) 2 MG/3ML injection (PEN) Inject 0.25 mg into the skin. 4 Active gabapentin (NEURONTIN) 300 MG capsuleIndicat ions:Neuropath y Take 3 pills three times a day 270 capsule 11 5 Active gabapentin (NEURONTIN) 300 MG capsuleIndicat ions:Neuropath y 2 capsules three times a day 180 capsule 11 4 025 Discontinued gabapentin (NEURONTIN) 300 MG capsuleIndicat ions:Neuropath y Take 2 capsules three times a day 180 capsule 11 4 025 Discontinued gabapentin (NEURONTIN) 300 MG capsuleIndicat ions:Neuropath y Take 3 capsules three times a day 270 capsule 11 4 025 Discontinued gabapentin (NEURONTIN) 300 MG capsuleIndicat ions:Neuropath y Take 3 pills three times a day 810 capsule 9 4 025 Discontinued Encounters Date Type Department Care Team Description 10/18/2024 Telephone [facility] - [address] [place] [address] Devon Houser MD Medication from Last 3 Months Immunizations Immunization Administration Dates Next Due Fluzone High Dose - >Age 65 (Prefilled Syringe) 03/11/2023,02/24/2022,02/27/2021 Influenza (Generic) 02/26/2021, 0,02/01/2020,2018 MODERNA COVID-19 BIVALENT ( 12+), MRNA, LNP-S, PF 02/24/2022 MODERNA COVID-19 (12+) [...] on file 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 Gender Identity Not on file Sexual Orientation Not on file Last Filed Vital Signs Vital Sign Reading Time Taken Comments Blood Pressure 138/67 10/12/2023 3:33 PM CDT Pulse 85 10/12/2023 3:33 PM CDT Temperature 37.1 C (98.7 F) 10/12/2023 3:33 PM CDT Respiratory Rate 18 06/22/2023 12:59 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 Oxygen Saturation 96% 10/12/2023 3:33 PM CDT Inhaled Oxygen Concentration - - Weight 124.3 kg (274 lb) 10/12/2023 3:33 PM CDT Height 172.7 cm (5' 8) 10/12/2023 3:33 PM CDT Body Mass Index 41.66 10/12/2023 3:33 PM CDT Plan of Treatment Health Maintenance Due Date Last Done Comments Hepatitis C 1963 DTaP, Tdap and Td Vaccines (1 - Tdap) 11[birth year]26/1964 Annual Medicare Wellness Visit 2009 Pneumococcal Vaccine: 50+ Years (2 of 2 - PPSV23) 01/31/2018 01/31/2017 RSV Immunization or 60+ Years (1 - 1-dose 75+ series) 11/26/2019 COVID-19 Vaccine ( - season) 2024 02/24/2022, 03/11/2021, 07/23/2020, Additional history exists PHQ-2 (Physician Turner) 05/03/2024 10/12/2023 Zoster Vaccines Completed 05/07/2021, 02/18/2021 Meningococcal B Vaccine Aged Out No l onger eligible based on patient's age to complete this topic Meningococcal Vaccine Aged Out No jorge kelsi eligible based on patient's age to complete this topic RSV Immunizations Under 20 Months Aged Out No longer eligible based on patient's age to complete this topic Insurance [employer] Care Teams Forestry And Wildlife Manager Relationship Specialty Start Date End Date Arnel Gonzalez MD [address] [place] [address] PCP - General INTERNAL MEDICINE 06/22/23
--- OUTSIDE RECORDS SUMMARY | 2024-11-08 12:32 | XMS_ITS | Encounter Summary ---
Author Organization [facility] Address [address] [place] [address] Phone Care Team Providers Care Consumer Banker Name Role Phone Arnel Gonzalez MD Primary Care Provider + [phone] Yfn Gill MD Unavailable [phone] Aguila Chris MD Unavailable [phone] Malcolm Castro MD Unavailable [phone] Neeraj La MD Unavailable [phone] Armand Howard RN Unavailable Unavaila August Hsu Primary Care Provider Miguel Torres DO Primary Care Provider [phone] Rafa Chavez DO Primary Care Provider + [phone] Rafa Chavez DO Primary Care Provider + [phone] Ramón Morales MD Unavailable [phone] Yfn Gill MD Unavailable [phone] Nabil Jacobs MD Unavailable Encounter Details Date Type Department Care Team [...] on file 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 Gender Identity Not on file Sexual Orientation [...] COVID: Suspected 05/05/2022 05/05/2022 05/05/2022 12:26 PM EMBEDDED PROCESSOR COVID: Suspected 05/05/2022 05/05/2022 05/05/2022 8:19 PM EMBEDDED PROCESSOR COVID: Suspected 03/19/2024 03/19/2024 03/19/2024 3:22 AM EMBEDDED PROCESSOR documented as of this encounter Care Teams Consumer Banker Relationship Specialty Start Date End Date Arnel Gonzalez MD [address] [place] [address] PCP - General 07/19/13 07/05/23 August Triana PA [address] [place] [address] PCP - General Physician Artificial Pearl Maker 07/06/23 01/16/24 Miguel Torres DO [address] [place] [address] [address] [place] [address] PCP - General Internal Medicine 01/17/24 05/31/24 Rafa Chavez, DO [address] [place] [address] [address] [place] [address] PCP - General Internal Medicine 06/01/24 10/03/24 Rafa Chavez, DO [address] [place] [address] [facility] [address] [place] [address] PCP - General Internal Medicine 10/04/24 Yfn Gill MD [address] [place] [address] [address] [place] [address] Referring Physician Nephrology 01/22/22 10/03/24 Aguila Chris MD [address] [place] [address] [address] [place] [address] Consulting Physician Cardiology 01/22/22 10/03/24 [place] [address] [place] [address] Consulting Physician Endocrinology Diabetes & Metabolism 01/22/22 10/03/24 Neeraj La MD [address] [facility] [address] [facility] [address] [place] [address] Surgeon Vascular Surgery 01/30/22 10/03/24 Armand Howard, RN Registered Nurse 06/30/22 07/02/22 Ramón Morales MD [address] [place] [address] Consulting Physician Urology 10/04/24 Yfn Gill MD [address] [facility] [address] [place] [address] Referring Physician Nephrology 10/04/24 Nabil Jacobs MD [address] [facility] [address] [place] [address] Consulting Physician Cardiology 10/04/24 documented as of this encounter
--- OUTSIDE RECORDS SUMMARY | 2024-11-08 12:32 | XMS_ITS | Clinical Summary ---
Author Organization [facility] Address [address] [place] [address] Care Team Providers Care Tribal Council Member Name Role Phone SabrinaArnel barbour Primary Care Provider [phone] Source Comments [facility],non-[facility] Affiliates and Associated Physician Practices is amultiple site organization consisting of ambulatory clinics and hospital sitesin [place], [place], [place] and [place]. This disclosure is being madepursuant to the Care Everywhere program and may not contain all information available regarding this patient. 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[employer] Gender Identity Not on file Sexual Orientation Not on file Last Filed Vital Signs Vital Sign Reading Time Taken Comments Blood Pressure 136/70 05/05/2021 1:09 PM [employer]AF [employer] Pulse 76 05/05/2021 1:09 PM [employer]AF [employer] Temperature - - Respiratory Rate 14 05/05/2021 1:09 PM LEAF [employer] Oxygen Saturation 98% 05/05/2021 1:09 PM [employer] Inhaled Oxygen Concentration - - Weight 121.1 kg (267 lb) 05/05/2021 1:09 PM [employer]AF [employer] Height 172.7 cm (5' 8) 05/05/2021 1:09 PM [employer]AF [employer] Body Mass Index 40.6 05/05/2021 1:09 PM LEAF [employer] Plan of Treatment Health Maintenance Due Date Last Done Comments DTAP/TDAP/TD VACCINES (1 - Tdap) 11/26/1963 PNEUMOCOCCAL VACCINE 50+ (1 of 1 - PCV) 1994 ZOSTER VACCINE (1 of 2) 1994 Respiratory Syncytial Virus (RSV) Vaccine Pt: or over 60 yrs (1 - 1-dose 75+ series) 11/26/2019 COVID-19 VACCINE (2023-2 5 season) 2024 DEPRESSION SCREENING 05/03/2024 INFLUENZA VACCINE (#1) 2025 , 03/03/2020, 01/31/2019 HEPATITIS B VACCINE Aged Out [...] complete this topic Insurance [employer] Care Teams Tribal Council Member Relationship Specialty Start Date End Date Arnel Gonzalez DO [address] [facility] [address] [place], [place] [id number] PCP - General 01/03/21
--- OUTSIDE RECORDS SUMMARY | 2024-11-08 12:32 | XMS_ITS | Clinical Summary ---
Author Organization [facility] Address [address] [place] [address] Care Team Providers Care Supervisor Personnel Clerks Name Role Phone Rafa Chavez DO Primary Care Provider [phone] Ramón Morales MD Unavailable [phone] Yfn Gill MD Unavailable [phone] Nabil Harding MD Unavailable Allergies Active Allergy Reactions Criticality Noted Date [...] 1 tablet (300 mg total) by mouth supervisory clerk before breakfast 0 Active alpha lipoic [...] EVERY DAY 90 tablet 2 4 Active metoprolol XL (TOPROL-XL) 50 mg extended [...] EARS TWICE DAILY NEEDED FOR FLARES Active bumetanide (BUMEX) 2 mg tabletIndications :Chronic heart failure with preserved ejection fraction (HCC) Take 1 tablet (2 mg total) by mouth daily 90 tablet 2 5 Active tirzepatide (Mounjaro) 5 mg/0.5 mL pen injector injection Inject 0.5 mL (5 mg total) under the skin every 7 days 6 mL 3 5 Active Active Problems Problem Noted Date Diagnosed Date Cardiovascular stress test abnormal 02/24/2024 Benign paroxysmal positional vertigo of left ear 09/28/2023 Cervical myelopathy with cervical radiculopathy 06/30/2022 Cervical spondylosis with myelopathy 06/09/2022 Overview (06/09/2022): Added automatically from request for surgery [id number] Carotid stenosis, right 01/07/2022 Overview (01/07/2022): Added automatically from request for surgery [id number] Assessment & Plan (10/12/2024 9:34 AM CDT): Continues to do well status post right TKR. Asymptomatic moderate left ICA stenosis. Will have patient follow-up in 1 year with repeat bilateral carotid artery duplex. Assessment & Plan (04/19/2023 1:00 PM UTILITY REPAIRER): Status post TCAR. Stent patent. Continue anti-platelet therapy follow-up 6 months. Assessment & Plan (03/12/2022 5:16 PM UTILITY REPAIRER): Impression: Patient is status post right TCAR. [...] (02/05/2020): Added automatically from request for surgery [id number] Hx of colonic polyps 10/10/2019 Overview (10/10/2019): Added automatically from request for surgery [id number] History of colon polyps 07/10/2019 Overview (07/10/2019): Added automatically from request for surgery [id number] Hypertension associated with diabetes 06/29/2019 Assessment & Plan (06/08/2024 2:36 PM UTILITY REPAIRER): Chronic problem, Controlled on metoprolol, Entresto, HCTZ, bumetanide, hydralazine, amlodipine. No changes. Assessment & Plan (04/19/2023 1:00 PM UTILITY REPAIRER): Hypertension chronic controlled. Continue current medical management [...] actual BMI) Coronary artery disease invo lving eyak coronary artery of eyak heart without angina pectoris 05/06/2015 Overview (08/07/2016): Coronary artery disease involving eyak coronary artery of eyak heart without angina pectoris Assessment & Plan (01/07/2022 3:00 PM CDT): Stable. Continue medical therapy. Mixed diabetic hyperlipidemi a associated with type 2 diabetes mellitus ([facility]) 05/06/2015 Overview (08/07/2016): Type 2 diabetes mellitus with complication Assessment & Plan (06/08/2024 2:36 PM UTILITY REPAIRER): Chronic problem. On statin therapy, no changes. Assessment & Plan (04/19/2023 1:00 PM UTILITY REPAIRER): Hyperlipidemia chronic and controlled. Continue current medical [...] complication Assessment & Plan (06/08/2024 2:37 PM UTILITY REPAIRER): Chronic problem, improving but not at goal. [...] Encounters Date Type Department Care Team Description 10/24/2024 Telephone [facility] Cardiology [address] [facility] [address] [place] [phone] Nabil Harding MD 10/12/2024 9:30 AM CDT Office Visit [facility] Medical [facility] [address] [place] [address] [address] [place] [phone] Deepthi Vega PA Carotid stenosis, right (Primary Dx); Hyperlipidemia, unspecified hyperlipidemia type; Hypertension associated with diabetes (HCC); Type 2 diabetes mellitus with other specified complication, without long-term current use of insulin (HCC) 10/12/2024 8:31 AM CDT - 10/12/2024 11:59 PM CDT Hospital Encounter [facility] Medical Office Building [address] [place] [address] [address] [place] [address] Stenosis of left carotid artery Discharge Disposition: Discharge to home or self care 10/12/[address] [facility] [address] [place] [address] Terra Joiner PA Prior Auth (Jhony) 10/12/2024 Orders Only [facility] Medical [facility] [address] [place] [address] [place] [phone] Neeraj La MD Bilateral carotid artery stenosis (Primary Dx); Aftercare following surgery of the circulatory system 10/04/2024 Telephone [facility] [address], [place] [address] Terra Joiner PA Med Management 09/27/2024 Results Follow-Up [facility] Cardiology [address] [address] [address] Nabil Harding MD Transthoracic Echo (TTE) Complete W Doppler/CF 09/26/2024 1:00 PM CDT Ancillary Procedure [facility] Cardiology [address] [facility] [address] [facility] [address] [place] [phone] Coronary artery disease involving eyak coronary artery of eyak heart without angina pectoris; S/P aortic valve replacement with bioprosthetic valve; Cardiomyopathy, ischemic 08/23/2024 1:45 PM CDT Office Visit [facility] Medical Group Cardiology [address] [place] [phone] Nabil Harding MD Coronary artery disease involving eyak coronary artery of eyak heart without angina pectoris (Primary Dx); S/P [...] failur e) (HCC) Pneumonia 10/21/2021 hospitalized at [facility] with PNA, JUANITA and CHF Cancer (HCC) [...] on file Legal Sex Male 1:58 AM UTILITY REPAIRER Gender Identity Not on file Sexual Orientation Not on file Obstetrics History Last Filed Vital Signs Vital Sign Reading Time Taken Comments Blood Pressure 154/77 10/12/2024 9:16 AM CDT Pulse 73 10/12/2024 9:16 AM CDT Temperature 36.7 C (98 F) 04/17/2024 7:04 AM UTILITY REPAIRER Respiratory Rate 18 06/08/2024 1:27 PM UTILITY REPAIRER Oxygen Saturation 93% 08/23/2024 1:04 PM CDT Inhaled Oxygen Concentration - - Weight 122.5 kg (270 lb) 10/12/2024 9:16 AM CDT Height 172.7 cm (5' 8) 10/12/2024 9:16 AM CDT Body Mass Index 41.05 10/12/2024 9:16 AM CDT Plan of Treatment Health Maintenance Due [...] 09/01, 06/18/2022, Additional history exists Influenza Vaccine (#1) 2025 , 03/11/2023, 02/24/2022, Additional history exists Fall Risk [...] Chronic Care Management No change(04/14 11:08 AM UTILITY REPAIRER) Pool Welch RN Note: Problem: Chronic Pain Goals: 1. Minimize further functional decline 2. Maximize quality of life 3. Control pain Strategies: - Activity/exercise program recommendation - Conservative stepwise pain medicine strategy with multi-disciplinary approach - Recommend healthy lifestyle strategies and compensatory methods as needed Medical Devices Implanted Type Area Open Hearth Furnace Operator Helper Device Identifier Shelf Expiration Date Model / Serial / Lot Total Knee Left: Knee [employer] Inc Resolute Ian 3mm 2.1-2.7fr 12mm 140cm Rapid Exchange Radiopaque [id number] - [id number] Implanted:Qty: 1 on 09/03/2021 by Bindu Goins MD at [facility] [employer] 06/11/2024 [id number] / / Med[employer]onic Inc Resolute Ian 3.5mm 2.1-2.7fr 15mm 140cm Rapid Exchange [id number] - [id number] Implanted:Qty: 1 on 09/03/2021 by Bindu Goins MD at [facility] [employer] Inc 04/04/2024 [id number] / / Angio-Seal Vip 6fr Closere Device [id number] - [id number] Implanted:Qty: 1 on 09/03/2021 by Bindu Goins MD at [facility] 06/02/2022 [id number] / / Sleep [employer] Enroute Uber Flex 8mm .065in 40mm 57cm Delivery System Angle Tip [id number] - [id number] Implanted:Qty: 1 on 01/29/2022 by Neeraj La MD at [facility] Right: Carotid [employer] 08/30/2024 [id number] / / [id number] Matilde [employer] Inc 4.5mm 16mm Fix Screw Bone [id number] - [id number] Implanted:Qty: 3 on 06/30/2022 by Fredy Nguyen MD at [facility] N/A: Spine Cervical MATILDE [employer] INC [id number] 6 / / Musculoskeletal Transplant 12.0z37q0wa Frozen Spine 7d Lordotic Trapezoid Spacer Allograft [id number] - [id number] - [id number] Implanted:Qty: 1 on 06/30/2022 by Fredy Nguyen MD at [facility] N/A: Spine Cervical Musculoskeletal Transplant [id number] 03/25/2025 [id number] / [id number] / Musculoskeletal Transplant 12.9s93a2ul Frozen Spine 7d Lordotic Trapezoid Spacer Allograft 898147 - [id number] - [id number] Implanted:Qty: 1 on 06/30/2022 by Fredy Nguyen MD at [facility] N/A: Spine Cervical Musculoskeletal Transplant [id number] 01/03/2025 [id number] / [id number] / Musculoskeletal Transplant 12.3v36c0fp Frozen Spine 7d Lordotic Trapezoid Spacer Allograft 513492 - [id number] - [id number] Implanted:Qty: 1 on 06/30/2022 by Fredy Nguyen MD at [facility] N/A: Spine Cervical Musculoskeletal Transplant [id number] 04/26/2026 [id number] / [id number] / [employer] Inc C-Ervin Maxan 51mm Level 3 Fix Spine Cervical Anterior Plate Bone [id number] - [id number] Implanted:Qty: 1 on 06/30/2022 by Fredy Nguyen MD at [facility] N/A: Spine Cervical [employer] [id number] 1 / / [employer] Inc 4mm 16mm Fix Screw Bone [id number] - [id number] Implanted:Qty: 5 on 06/30/2022 by Fredy Nguyen MD at [facility] N/A: Spine Cervical [employer] [id number] 6 / / Access Closure Inc Device 10ml 5fr Closure Mynx Control 2 Mode Balloon Catheter [id number] - [id number] Implanted:Qty: 1 on 03/27/2024 by Nabil Harding MD at [facility] Access [employer] Inc 01/18/2026 [id number] / / [id number] [facility] Vas Surgery 4.0 X 18mm Ian [place] [employer] Coronary Stent [id number] - [id number] Implanted:Qty: 1 on 04/17/2024 by Nabil Harding MD at [facility] Med[employer]onic Card Vasc Surgery 12/26/2026 [id number] / / [id number] Access [employer] Inc Mynx Control 6-7fr 2 Mode Balloon Catheter Sealant Lock Syringe [id number] - [id number] Implanted:Qty: 1 on 04/17/2024 by Nabil Harding MD at [facility] [employer] 01/05/2026 [id number] / / [id number] Procedures Procedure Name Priority Date/Time Associated Diagnosis Comments US CAROTIDS DUPLEX BILATERAL Schedule Routine, Read Routine (OP Routine) 10/12/2024 9:12 AM CDT Stenosis of left carotid artery TRANSTHORACIC ECHO (TTE) COMPLETE W DOPPLER/CF Routine 09/26/2024 1:45 PM CDT Coronary artery disease involving eyak coronary artery of eyak heart without angina pectoris S/P aortic valve replacement with bioprosthetic valve Cardiomyopathy, ischemic POCT HEMOGLOBIN A1C Routine 06/08/2024 1 :18 PM UTILITY REPAIRER Type 2 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 disease, with long-term current use of insulin (HCC) ALBUMIN CREATININE RATIO, URINE Routine 06/08/2024 1:18 PM UTILITY REPAIRER Type 2 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 disease, with long-term current use of insulin (HCC) POCT LIPID PANEL Routine 06/08/2024 1:18 AM UTILITY REPAIRER Type 2 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 disease, with long-term current use of insulin (HCC) HM CREATININE Routine 05/31/2024 12:52 PM UTILITY REPAIRER HEPATITIS C AB REFLEX RNA QUANT PCR Routine 06/14/2019 3:47 PM UTILITY REPAIRER COLONOSCOPY REPORT 05/18/2014 from Last 3 Months or Most Recently Relevant to Health Maintenance Results * US Carotids Duplex Bilateral (10/12/2024 9:12 AM CDT) Anatomical Region Laterality Modality Vascular Bilateral Ultrasound 10/12/2024 8:37 AM CDT Narrative 10/12/2024 10:18 AM CDT Carotid Duplex Ultrasound Report Patient Name: TAMIKA AGUILAR D : 1945 (78y 10m) Study Date: 10/12/2024 8:37:55 AM Gender: M Splitting Machine Tender: Shalini Cruz Provider: DEEPTHI VEGA Quality: Adequate Order Provider: DEEPTHI VEGA PROCEDURES: Carotid Report: Carotid duplex examination of the extracranial arteries was performed using 2D, color and spectral Doppler. Blood Pressure: Right: 142 mmHg. Left: 150 mmHg. INDICATIONS: I65.22 Occlusion and stenosis of left carotid artery. HISTORY: Right carotid stent 08/29/21 h/o htn, hld, dm, quit smoking 1986. COMPARISONS: No change compared to prior study. The previous exam was completed on 10/13/23. MEASUREMENTS: Right Value Left Value RT Prox CCA PSV 112 cm/sec LT Prox CCA PSV 89 cm/sec RT Prox CCA EDV 14 cm/sec LT Prox CCA EDV 14 cm/sec RT ECA Mid PSV 197 cm/sec LT Distal CCA PSV 68 cm/sec RT ECA EDV 17 cm/sec LT Distal CCA EDV 12 cm/sec RT ICA/CCA 0.92 ratio LT Prox ICA PSV 196 cm/sec Rt Vert PSV 61 cm/sec LT Prox ICA EDV 35 cm/sec LT Mid ICA PSV 78 cm/sec LT Mid ICA EDV 13 cm/sec LT Distal ICA PSV 106 cm/sec LT Distal ICA EDV 19 cm/sec LT ECA Mid PSV 101 cm/sec LT ECA EDV 19 cm/sec LT ICA/CCA 2.90 ratio Lt Vert PSV 38 cm/sec STENT MEASUREMENTS: Right Value Location DIST CCA INTO ICA Rt Stent Prx Stebbins PSV 84/12 cm/sec Rt Stent Prx PSV 119/13 cm/sec Rt Stent Mid PSV 91/8 cm/sec Rt Stent Dst PSV 84/11 cm/sec Rt Stent Dst Stebbins PSV 88/19 cm/sec FINDINGS: Rt Common Carotid Artery: Duplex imaging of the right common carotid artery is within normal limits without evidence of atherosclerotic disease. Rt Internal Carotid Artery: The plaque in the right internal carotid artery appears to be heterogeneous and smooth. Atherosclerotic changes of the right internal carotid artery without hemodynamically significant Doppler findings. <50% stenosis. Rt External Carotid Artery: Patent right external carotid artery with evidence of atherosclerotic disease present. Rt Vertebral Artery: The right vertebral artery is patent with antegrade flow. Lt Common Carotid Artery: The plaque in the left CCA appears to be heterogeneous and irregular. Lt Internal Carotid Artery: The plaque in the left internal carotid artery appears to be heterogeneous and irregular. Significant atherosclerotic changes of the left internal carotid artery with elevated peak systolic velocity and end diastolic velocity, as above. 50-69% stenosis. Lt External Carotid Artery: The left external carotid artery is patent without evidence of atherosclerotic plaque. Lt Vertebral Artery: The left vertebral artery is patent with antegrade flow. Comments: The stented right Internal Carotid Artery is patent and throughout the stent a maximum peak systolic velocity 91 cm/sec, an end diastolic velocity of 8 cm/sec, stented ICA/CCA ratio 0.92. CONCLUSIONS: 1. Right internal carotid artery stent is patent. 2. The left internal carotid artery disease is consistent with moderate 50-69% stenosis. 3. Normal, antegrade flow is noted in bilateral vertebral arteries. ATTESTATION: I have reviewed and interpreted the pertinent images and measurements of this study. I attest to the conclusions in the final report that is provided above. Electronically Signed By: Neeraj La MD 10/12/2024 9:38:15 AM CDT Procedure Note Neeraj La MD - 10/12/2024 Carotid Duplex Ultrasound Report Patient Name: TAMIKA AGUILAR D : 1945 (78y 10m) Study Date: 10/12/2024 8:37:55 AM Gender: M Splitting Machine Tender: Shalini Cruz Provider: DEEPTHI VEGA Quality: Adequate Order Provider: DEEPTHI VEGA PROCEDURES: Carotid Report: Carotid duplex examination of the extracranial arterieswas performed using 2D, color and spectral Doppler. Blood Pressure: Right: 142 mmHg. Left: 150 mmHg. INDICATIONS: I65.22 Occlusion and stenosis of left carotid artery. HISTORY: Right carotid stent 08/29/21 h/o htn, hld, dm, quit smoking 1986. COMPARISONS: No change compared to prior study. The previous exam was completed on10/13/23. MEASUREMENTS: Right Value Left Value RT Prox CCA PSV 112 cm/sec LT Prox CCA PSV 89 cm/sec RT Prox CCA EDV 14 cm/sec LT Prox CCA EDV 14 cm/sec RT ECA Mid PSV 197 cm/sec LT Distal CCA PSV 68 cm/sec RT ECA EDV 17 cm/sec LT Distal CCA EDV 12 cm/sec RT ICA/CCA 0.92 ratio LT Prox ICA PSV 196 cm/sec Rt Vert PSV 61 cm/sec LT Prox ICA EDV 35 cm/sec LT Mid ICA PSV 78 cm/sec LT Mid ICA EDV 13 cm/sec LT Distal ICA PSV 106 cm/sec LT Distal ICA EDV 19 cm/sec LT ECA Mid PSV 101 cm/sec LT ECA EDV 19 cm/sec LT ICA/CCA 2.90 ratio Lt Vert PSV 38 cm/sec STENT MEASUREMENTS: Right Value Location DIST CCA INTO ICA Rt Stent Prx Stebbins PSV 84/12 cm/sec Rt Stent Prx PSV 119/13 cm/sec Rt Stent Mid PSV 91/8 cm/sec Rt Stent Dst PSV 84/11 cm/sec Rt Stent Dst Stebbins PSV 88/19 cm/sec FINDINGS: Rt Common Carotid Artery: Duplex imaging of the right common carotidartery is within normal limits without evidence of atherosclerotic disease. Rt Internal Carotid Artery: The plaque in the right internal carotidartery appears to be heterogeneous and smooth. Atherosclerotic changes of the right internalcarotid artery without hemodynamically significant Doppler findings. <50% stenosis. Rt External Carotid Artery: Patent right external carotid artery withevidence of atherosclerotic disease present. Rt Vertebral Artery: The right vertebral artery is patent with antegradeflow. Lt Common Carotid Artery: The plaque in the left CCA appears to beheterogeneous and irregular. Lt Internal Carotid Artery: The plaque in the left internal carotid arteryappears to be heterogeneous and irregular. Significant atherosclerotic changes of theleft internal carotid artery with elevated peak systolic velocity and end diastolicvelocity, as above. 50-69% stenosis. Lt External Carotid Artery: The left external carotid artery is patentwithout evidence of atherosclerotic plaque. Lt Vertebral Artery: The left vertebral artery is patent with antegradeflow. Comments: The stented right Internal Carotid Artery is patent andthroughout the stent a maximum peak systolic velocity 91 cm/sec, an end diastolic velocity of 8cm/sec, stented ICA/CCA ratio 0.92. CONCLUSIONS: 1. Right internal carotid artery stent is patent. 2. The left internal carotid artery disease is consistent with iphgyqza82-46% stenosis. 3. Normal, antegrade flow is noted in bilateral vertebral arteries. ATTESTATION: I have reviewed and interpreted the pertinent images and measurements ofthis study. I attest to the conclusions in the final report that is provided above. Electronically Signed By: Neeraj La MD 10/12/2024 9:38:15 AM CDT us Deepthi CRUZ IMG US PROCEDURES Final Res ult * TRANSTHORACIC ECHO (TTE) COMPLETE W DOPPLER/CF W CONTRAST (09/26/2024 1:45 PM CDT) Pathologist [facility] Estimated EF 35-40 % CONS SCIMAGE EF Mod BP 45 % CONS SCIMAGE Anatomical Region Laterality Modality Ultrasound 09/26/2024 1:03 PM CDT Narrative 09/26/2024 4:28 PM CDT [facility] Medical Group Cardiology [address], [place] [address] [address], [place] [address] P:[phone] P:[phone] Echocardiographic Report Patient Name: TAMIKA AGUILAR D : 1945 Study Date: 09/26/2024 1:03:46 PM Gender: M Tech: Location: [facility] Provider: NABIL HARDING Height(Cm): 173 BSA: 2.44 Weight(Kg): 124.3 Heart Rate: 105 BP: 118 / 62 Quality: Good Order Provider: NABIL HARDING PROCEDURES: Echocardiographic Report: Transthoracic echocardiogram with complete 2D, M-Mode, color Doppler examination and Definity contrast. INDICATIONS: S/P TAVR, I25.10 Atherosclerotic heart disease of eyak coronary artery without angina pectoris, and I25.5 [...] FINDINGS: Interpretation Site: Exam was interpreted at [facility]. Left Ventricle: Definity contrast agent used [...] Procedure Note Zack Vásquez MD - 09/26/2024 [facility] Medical Group Cardiology [address] [facility] [address] [address] [facility] [address] [place] [address] P:[phone] P:[phone] Echocardiographic Report Patient Name: TAMIKA AGUILAR D : 1945 Study Date: 09/26/2024 1:03:46 PM Gender: M Tech: Location: [facility] Provider: NABIL HARDING Height(Cm): 173 BSA: 2.44 Weight(Kg): 124.3 Heart Rate: 105 BP: 118 / 62 Quality: Good Order Provider: NABIL HARDING PROCEDURES: Echocardiographic Report: Transthoracic echocardiogram with complete 2D, M-Mode, color Dopplerexamination and Definity contrast. INDICATIONS: S/P TAVR, I25.10 Atherosclerotic heart disease of eyak coronary arterywithout angina pectoris, and I25.5 Ischemic [...] FINDINGS: Interpretation Site: Exam was interpreted at [facility] [place]. Left Ventricle: Definity contrast [...] Zack Vásquez MD 09/26/2024 4:27:[address] [facility] Nabil Harding MD CV ECHO PROCEDURES Final Result * (ABNORMAL) POCT hemoglobin A1c (06/08/2024 1:18 PM UTILITY REPAIRER) [facility] Hemoglobin A1C, POC 8.3 4.0 - 5.6 % Capillary blood 06/08/2024 1 :18 PM UTILITY REPAIRER Result [facility] Terra CRUZ POINT OF CARE TEST ORDE RABLES Final Result * (ABNORMAL) Albumin Creatinine Ratio, Urine (06/08/2024 1:18 PM UTILITY REPAIRER) [facility] Albumin Ur 68.0 mg/L Comment: Interpretive Data No reference range established. Current interpretive data was last revised 2018. Creatinine Ur 32.5 mg/dL JOSE MIGUEL Comment: Interpretive Data No reference range established. Current interpretive data was last revised 2018. Albumin Creatinine Ratio, Ur 209(H) 1 - 29 mg/g JOSE MIGUEL BOWERS Urine 06/08/2024 1:18 PM UTILITY REPAIRER 06/08/2024 7:31 PM UTILITY REPAIRER Result [facility] Terra CRUZ LAB URINE ORDERABLES nal Result JOSE MIGUEL [address] [address] Department of Laboratories [place], [place] [id number] * (ABNORMAL) POCT lipid panel (06/08/2024 1:18 AM UTILITY REPAIRER) [facility] Cholesterol, POC 154 mg/dL HDL, POC 25 mg/dL Triglycerides, POC 271 mg/dL LDL Cholesterol POC 75 mg/dL Chol/HDL Ratio, POC 6.2 Non-HDL Cholesterol, POC 129 mg/dL Cholesterol Total, POC 154 mg/dL Capillary blood 06/08/2024 1 :18 AM UTILITY REPAIRER Terra CRUZ POINT OF CARE TEST ORDE RABAMBER Final Result * (ABNORMAL) HM CREATININE (05/31/2024 12:52 PM UTILITY REPAIRER) SCRIBED Creatinine 2.16(A) 0.7 - 1.3 mg/dl EXTERNAL LAB SCRIBED eGFR in NonAfrican Guatemalan 30 >59 - NA EXTERNAL LAB Blood 05/31/2024 12:5 2 PM UTILITY REPAIRER Historical Provider HEALTH MAINTENANCE Edited Result - Final EXTERNAL LAB * Hepatitis C Antibody Reflex Hepatitis C RNA Quantitative PCR Blood (06/14/2019 3:47 PM UTILITY REPAIRER) Hep C Ab Negative Negative JOSE MIGUEL BOWERS Blood specimen (specimen) 06/14/2019 3:47 PM UTILITY REPAIRER 06/14/2019 8:03 PM UTILITY REPAIRER Notinfile Unknown LAB MICROBIOLOGY - GENERAL ORD ERABLES Final Result JOSE MIGUEL [address] [address] [place] [address] * COLONOSCOPY REPORT (05/18/2014) Anatomical Region Laterality Modality Other Narrative 05/18/2014 Ordered by an unspecified provider. Historical Provider GI PROCEDURE ORDERABLES F inal Result from Last 3 Months or Most Recently Relevant to Health Maintenance Insurance [employer] MEDIC[employer] PPO [employer] MEDIC[employer] PPO Advance Directives For more information, please contact: [phone] * Full Code (Latest Code Status on File) Date Activated Date Inactivated Comments 06/30/2022 6:44 PM 07/03/2022 5:32 PM * Full Code Date Activated Date Inactivated Comments 06/30/2022 6:39 PM 06/30/2022 6:44 PM * Full Code Date Activated Date Inactivated Comments 01/29/2022 2:14 PM 01/30/2022 6:06 PM * Full Code Date Activated Date Inactivated Comments 09/03/2021 12:10 PM 09/04/2021 7:37 PM Care Teams Supervisor Personnel Clerks Relationship Specialty Start Date End Date Rafa Chavez DO [address] [place] [address] [address] PCP - General Internal Medicine 10/04/24 Ramón Morales MD [address] [place] [id number] Consulting Physician Urology 10/04/24 Yfn Gill MD [address] [address] [facility] [address] [place] [address] Referring Physician Nephrology 10/04/24 Nabil Harding MD [address] [facility] [address] [place] [address] Consulting Physician Cardiology 10/04/24
--- OUTSIDE RECORDS SUMMARY | 2024-11-08 12:32 | XMS_ITS | Referral Summary ---
Author Organization [facility] Address [address] [place] [address] Care Team Providers Care Director Law Enforcement Name Role Phone Rafa Chavez DO Primary Care Provider [phone] Ramón Morales MD Unavailable [phone] Yfn Gill MD Unavailable [phone] Nabil Harding MD Unavailable Encounters Date Type Department Care Team Description 10/24/2024 Telephone [facility] Cardiology [address] [address] [address] [place] [address] Nabil Harding MD 10/12/2024 Telephone [facility] Specialists [facility] [address] [place] [address] Terra Joiner PA Prior Auth (Jhony) 10/12/2024 Orders Only [facility] Vascular and Vein Surgery [address] [place] [address] Neeraj La MD Bilateral carotid artery stenosis (Primary Dx); Aftercare following surgery of the circulatory system 10/12/2024 9:30 AM CDT Office Visit [facility] Vascular and Vein Surgery [address] [place] [address] Deepthi Vega PA Carotid stenosis, right (Primary Dx); Hyperlipidemia, unspecified hyperlipidemia type; Hypertension associated with diabetes (HCC); Type 2 diabetes mellitus with other specified complication, without long-term current use of insulin (HCC) 10/12/2024 8:31 AM CDT - 10/12/2024 11:59 PM CDT Hospital Encounter [facility] Medical Office Building 2 Vascular [address] [place] [address] Stenosis of left carotid artery Discharge Disposition: Discharge to home or self care 10/04/2024 Telephone [facility] [address] [place] [address] [address] [address] Terra Joiner PA Med Management 09/27/2024 Results Follow-Up [facility] Cardiology [address] [facility] [address], [place] [address] Nabil Harding MD Transthoracic Echo (TTE) Complete W Doppler/CF 09/26/2024 1:00 PM CDT Ancillary Procedure [facility] Cardiology [address] [facility] [address] [place] [address] 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; S/P aortic valve replacement with bioprosthetic valve; Cardiomyopathy, ischemic 08/23/2024 1:45 PM CDT Office Visit [facility] Cardiology [address] [facility] [address] [place] [address] Nabil Harding MD 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 Asymptomatic moderate left ICA stenosis. Will have patient follow-up in 1 year with repeat bilateral carotid artery duplex. Assessment & Plan (04/19/2023 1:00 PM [facility]): Status post TCAR. Stent patent. Continue anti-platelet therapy follow-up 6 months. Assessment & Plan (03/12/2022 5:16 PM [facility]): Impression: Patient is status post right [...] (02/05/2020): Added automatically from request for surgery [id number] Hx of colonic polyps 10/10/2019 Overview (10/10/2019): Added automatically from request for surgery [id number] History of colon polyps 07/10/2019 Overview (07/10/2019): Added automatically from request for surgery [id number] Hypertension associated with diabetes 06/29/2019 Assessment & Plan (06/08/2024 2:36 PM [facility]): Chronic problem, Controlled on metoprolol, Entresto, HCTZ, bumetanide, hydralazine, amlodipine. No changes. Assessment & Plan (04/19/2023 1:00 PM [facility]): Hypertension chronic controlled. 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 Continue medical therapy. Mixed diabetic hyperlipidemi a associated with type 2 diabetes mellitus ([facility]) 05/06/2015 Overview (08/07/2016): Type 2 diabetes mellitus with complication Assessment & Plan (06/08/2024 2:36 PM [facility]): Chronic problem. On statin therapy, no changes. Assessment & Plan (04/19/2023 1:00 PM [facility]): Hyperlipidemia chronic and controlled. Continue current [...] complication Assessment & Plan (06/08/2024 2:37 PM [facility]): Chronic problem, improving but not at [...] on file Legal Sex Male 1:58 AM [facility] Gender Identity Not on file Sexual Orientation Not on file Last Filed Vital Signs Vital Sign Reading Time Taken Comments Blood Pressure 154/77 10/12/2024 9:16 AM CDT Pulse 73 10/12/2024 9:16 AM CDT Temperature 36.7 C (98 F) 04/17/2024 7:04 AM [facility] Respiratory Rate 18 06/08/2024 1:27 PM [facility] Oxygen Saturation 93% 08/23/2024 1:04 PM CDT Inhaled Oxygen Concentration - - Weight 122.5 kg (270 lb) 10/12/2024 9:16 AM CDT Height 172.7 cm (5' 8) 10/12/2024 9:16 AM CDT Body Mass Index 41.05 10/12/2024 9:16 AM CDT Plan of Treatment Not on file Goals Goal Patient Goal Type Associated Problems Recent Progress Patient-Stated? Author CCM Chronic Pain Care Plan Chronic Care Management No change(04/14 11:08 AM [facility]) No Pool Frey, RN Note: Problem: Chronic Pain Goals: 1. Minimize further functional decline 2. Maximize quality of life 3. Control pain Strategies: - Activity/exercise program recommendation - Conservative stepwise pain medicine strategy with multi-disciplinary approach - Recommend healthy lifestyle strategies and compensatory methods as needed Medical Devices Implanted Type Area Spinning Frame Changer Device Identifier Shelf Expiration Date Model / Serial / Lot Total Knee Left: Knee Shadow [employer] Resolute Ian 3mm 2.1-2.7fr 12mm 140cm Rapid Exchange Radiopaque [id number] - [id number] Implanted:Qty: 1 on 09/03/2021 by Bindu Goins MD at [facility] Medtronic Inc 06/11/2024 [id number] / / Medtronic Inc Resolute Kenbridge 3.5mm 2.1-2.7fr 15mm 140cm Rapid Exchange [id number] - [id number] Implanted:Qty: 1 on 09/03/2021 by Bindu Goins MD at [facility] [employer] Inc 04/04/2024 [id number] / / Angio-Seal Vip 6fr Closere Device [id number] - [id number] Implanted:Qty: 1 on 09/03/2021 by Bindu Goins MD at [facility] [employer] Miya 06/02/2022 [id number] / / [employer] Enroute Uber Flex 8mm .065in 40mm 57cm Delivery System Angle Tip [id number] - [id number] Implanted:Qty: 1 on 01/29/2022 by Neeraj La MD at [facility] Right: Carotid [employer] Inc 08/30/2024 [id number] CS / / [id number] Matilde Biomet Inc 4.5mm 16mm Fix Screw Bone [id number] - [id number] Implanted:Qty: 3 on 06/30/2022 by Fredy Nguyen MD at [facility] N/A: Spine Cervical MATILDE [employer]OM[employer] SP[employer] INC [id number] 6 / / Musculoskeletal Transplant 12.8e13w5gp Frozen Spine 7d Lordotic Trapezoid Spacer Allograft [id number] - [id number] - [id number] Implanted:Qty: 1 on 06/30/2022 by Fredy Nguyen MD at [facility] N/A: Spine Cervical Musculoskeletal Transplant [id number] 03/25/2025 [id number] / [id number] / Musculoskeletal Transplant 12.6o90y6ts Frozen Spine 7d Lordotic Trapezoid Spacer Allograft 213108 - [id number] - [id number] Implanted:Qty: 1 on 06/30/2022 by Fredy Nguyen MD at [facility] N/A: Spine Cervical Musculoskeletal Transplant [id number] 01/03/2025 [id number] / [id number] / Musculoskeletal Transplant 12.5a49t0ut Frozen Spine 7d Lordotic Trapezoid Spacer Allograft 486506 - [id number] - [id number] Implanted:Qty: 1 on 06/30/2022 by Fredy Nguyen MD at [facility] N/A: Spine Cervical Musculoskeletal Transplant [id number] 04/26/2026 [id number] / [id number] / Matilde [employer] Inc C-Ervin Maxan 51mm Level 3 Fix Spine Cervical Anterior Plate Bone [id number] - [id number] Implanted:Qty: 1 on 06/30/2022 by Fredy Nguyen MD at [facility] N/A: Spine Cervical MATILDE [employer] SP[employer] INC [id number] 1 / / Matilde [employer] Inc 4mm 16mm Fix Screw Bone 14-775769 - [id number] Implanted:Qty: 5 on 06/30/2022 by Fredy Nguyen MD at [facility] N/A: Spine Cervical MATILDE [employer] SP[employer] INC [id number] / / Access Closure Inc Device 10ml 5fr Closure Mynx Control 2 Mode Balloon Catheter [id number] - [id number] Implanted:Qty: 1 on 03/27/2024 by Nabil Harding MD at [facility] Access [employer] Inc 01/18/2026 [id number] / / [id number] Medtronic Card Vasc Surgery 4.0 X 18mm Kenbridge Castleton Rx Coronary Stent [id number] - [id number] Implanted:Qty: 1 on 04/17/2024 by Nabil Harding MD at [facility] Medtronic Card Vasc Surgery 12/26/2026 [id number] / / [id number] Access Closure Inc Mynx Control 6-7fr 2 Mode Balloon Catheter Sealant Lock Syringe [id number] - [id number] Implanted:Qty: 1 on 04/17/2024 by Nabil Harding MD at [facility] Access [employer] Inc 01/05/2026 [id number] / / [id number] Procedures Procedure Name Priority Date/Time Associated Diagnosis Comments US CAROTIDS DUPLEX BILATERAL Schedule Routine, Read Routine (OP Routine) 10/12/2024 9:12 AM CDT Stenosis of left carotid artery TRANSTHORACIC ECHO (TTE) COMPLETE W DOPPLER/CF Routine 09/26/2024 1:45 PM CDT 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 S/P aortic valve replacement with bioprosthetic valve Cardiomyopathy, ischemic POCT HEMOGLOBIN A1C Routine 06/08/2024 1 :18 PM [facility] Type 2 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 disease, with long-term current use of insulin (HCC) ALBUMIN CREATININE RATIO, URINE Routine 06/08/2024 1:18 PM [facility] Type 2 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 disease, with long-term current use of insulin (HCC) POCT LIPID PANEL Routine 06/08/2024 1:18 AM [facility] Type 2 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 disease, with long-term current use of insulin (HCC) HM CREATININE Routine 05/31/2024 12:52 PM [facility] HEPATITIS C AB REFLEX RNA QUANT PCR Routine 06/14/2019 3:47 PM [facility] COLONOSCOPY REPORT 05/18/2014 from Last 3 Months or Most Recently Relevant to Health Maintenance Results * US Carotids Duplex Bilateral (10/12/2024 9:12 AM CDT) Anatomical Region Laterality Modality Vascular Bilateral Ultrasound 10/12/2024 8:37 AM CDT Narrative 10/12/2024 10:18 AM CDT Carotid Duplex Ultrasound Report Patient Name: TAMIKA AGUILAR D : 1945 (78y 10m) Study Date: 10/12/2024 8:37:55 AM Gender: M Certified Legal Secretary Specialist: Shalini Cruz Provider: DEPETHI VEGA Quality: Adequate Order Provider: DEEPTHI VEGA [...] DIST CCA INTO ICA Rt Stent Prx [place] PSV 84/12 cm/sec Rt Stent Prx PSV 119/13 cm/sec Rt Stent Mid PSV 91/8 cm/sec Rt Stent Dst PSV 84/11 cm/sec Rt Stent Dst [place] PSV 88/19 cm/sec FINDINGS: Rt Common Carotid [...] Carotid Duplex Ultrasound Report Patient Name: TAMIKA AGUIALR D : 1945 (78y 10m) Study Date: 10/12/2024 8:37:55 AM Gender: M Certified Legal Secretary Specialist: Shalini Cruz Provider: DEEPTHI VEGA Quality: Adequate [...] DIST CCA INTO ICA Rt Stent Prx [place] PSV 84/12 cm/sec Rt Stent Prx PSV 119/13 cm/sec Rt Stent Mid PSV 91/8 cm/sec Rt Stent Dst PSV 84/11 cm/sec Rt Stent Dst [place] PSV 88/19 cm/sec FINDINGS: Rt Common Carotid [...] internal carotid artery disease is consistent with -59% stenosis. 3. Normal, antegrade flow is noted in bilateral vertebral arteries. ATTESTATION: I have reviewed and interpreted the pertinent images and measurements ofthis study. I attest to the conclusions in the final report that is provided above. Electronically Signed By: Neeraj La MD 10/12/2024 9:38:15 AM CDT us Deepthi CRUZ IMKane US PROCEDURES Final Res ult * TRANSTHORACIC ECHO (TTE) COMPLETE W DOPPLER/CF W CONTRAST (09/26/2024 1:45 PM CDT) Estimated EF 35-40 % CONS SCIMAGE EF Mod BP 45 % CONS SCIMAGE Anatomical Region Laterality Modality Ultrasound 09/26/2024 1:03 PM CDT Narrative 09/26/2024 4:28 PM CDT [facility] Cardiology [address] [facility] [address], [place] [address] [address] [facility] [address], [place] [address] P:[phone] P:[phone] Echocardiographic Report Patient Name: TAMIKA AGUILAR D : 1945 Study Date: 09/26/2024 1:03:46 PM Gender: M Tech: Location: [facility] Provider: NABIL HARDING Height(Cm): 173 BSA: 2.44 Weight(Kg): 124.3 Heart Rate: 105 BP: 118 / 62 Quality: Good Order Provider: NABIL HARDING PROCEDURES: Echocardiographic Report: Transthoracic echocardiogram with complete 2D, M-Mode, color Doppler examination and Definity contrast. INDICATIONS: S/P TAVR, I25.10 Atherosclerotic heart disease of kalispel coronary artery without angina pectoris, and I25.5 [...] FINDINGS: Interpretation Site: Exam was interpreted at [facility] [place]. Left Ventricle: Definity contrast agent used [...] Procedure Note Zack Vásquez MD - 09/26/2024 [facility] Cardiology [address] [facility] [address], [place] [address] [address] [facility] [address], [place] [address] P:[phone] P:[phone] Echocardiographic Report Patient Name: TAMIKA AGUILARPriscilla : 1945 Study Date: 09/26/2024 1:03:46 PM Gender: M Tech: Location: [facility] Provider: NABIL HARDING Height(Cm): 173 BSA: 2.44 Weight(Kg): 124.3 Heart Rate: 105 BP: 118 / 62 Quality: Good Order Provider: NABIL HARDING PROCEDURES: Echocardiographic Report: Transthoracic echocardiogram with complete 2D, M-Mode, color Dopplerexamination and Definity contrast. INDICATIONS: S/P TAVR, I25.10 Atherosclerotic heart disease of kalispel coronary arterywithout angina pectoris, and I25.5 Ischemic [...] FINDINGS: Interpretation Site: Exam [facility] at [facility]. Left Ventricle: Definity contrast agent used to [...] (ABNORMAL) POCT hemoglobin A1c (06/08/2024 1:18 PM [facility]) Pathologist [facility] Hemoglobin A1C, POC 8.3 4.0 - 5.6 % Capillary blood 06/08/2024 1 :18 PM [facility] Terra CRZU POINT OF CARE TEST ENRIQUE CHINO Final Result * (ABNORMAL) Albumin Creatinine Ratio, Urine (06/08/2024 1:18 PM [facility]) Albumin Ur 68.0 mg/L Comment: Interpretive Data No reference range established. Current interpretive data was last revised 2018. Creatinine Ur 32.5 mg/dL JOSE MIGUEL Comment: Interpretive Data No reference range established. Current interpretive data was last revised 2018. Albumin Creatinine Ratio, Ur 209(H) 1 - 29 mg/g JOSE MIGUEL Urine 06/08/2024 1:18 PM [facility] 06/08/2024 7:31 PM [facility] Terra CRUZ LAB URINE ORDERABLES Fi nal Result JOSE MIGUEL [address] [place] [address] * (ABNORMAL) POCT lipid panel (06/08/2024 1:18 AM [facility]) Cholesterol, POC 154 mg/dL HDL, POC 25 mg/dL Triglycerides, POC 271 mg/dL LDL Cholesterol POC 75 mg/dL Chol/HDL Ratio, POC 6.2 Non-HDL Cholesterol, POC 129 mg/dL Cholesterol Total, POC 154 mg/dL Capillary blood 06/08/2024 1 :18 AM [facility] Terra CRUZ POINT OF CARE TEST ORDE RABLES Final Result * (ABNORMAL) HM CREATININE (05/31/2024 12:52 PM [facility]) SCRIBED Creatinine 2.16(A) 0.7 - 1.3 mg/dl EXTERNAL LAB SCRIBED eGFR in NonAfrican Scottish 30 >59 - NA EXTERNAL LAB Blood 05/31/2024 12:5 2 PM [facility] Historical Provider HEALTH MAINTENANCE Edited Result - Final Performing Organization Address [facility]/ZIP Co de Phone Number EXTERNAL LAB * Hepatitis C Antibody Reflex Hepatitis C RNA Quantitative PCR Blood (06/14/2019 3:47 PM [facility]) Hep C Ab Negative Negative JOSE MIGUEL Blood specimen (specimen) 06/14/2019 3:47 PM [facility] 06/14/2019 8:03 PM [facility] Notinfile Unknown LAB MICROBIOLOGY - GENERAL ORD ERABLES Final Result JOSE MIGUEL [address] [place] [address] * COLONOSCOPY REPORT (05/18/2014) Anatomical Region Laterality Modality Other Narrative 05/18/2014 Ordered by an unspecified provider. us Historical Provider MD FERNANDEZ PROCEDURE ORDERABLES F inal Result from Last 3 Months or Most Recently Relevant to Health Maintenance Insurance HU[employer]NA CHOICE MEDICARE PPO [place] MEDICARE [place]PO HU[employer]NA CHOICE MEDICARE PPO HU[employer]NA CHOICE MEDICARE PPO Advance Directives For more information, please contact: [phone] * Full Code (Latest Code Status on [...] PM 09/04/2021 7:37 PM Care Teams Director Law Enforcement Relationship Specialty Start Date End Date Rafa Chavez DO [address] [place] [address] [address] PCP - General Internal Medicine 10/04/24 Ramón Morales MD [address] [address] Consulting Physician Urology 10/04/24 Yfn Gill MD [address] [place], [place] [address] Referring Physician Nephrology 10/04/24 Nabil Harding MD [address] [facility] [address] [place], [place] [address] Consulting Physician Cardiology 10/04/24
--- OUTSIDE RECORDS SUMMARY | 2024-11-08 12:33 | XMS_ITS | Encounter Summary ---
Author Organization [facility] Healthcare Address [address] [place] [address] Care Team Providers Care Field Administrative Assistant Name Role Phone Yfn Gill MD Unavailable [phone] Aguila Chris MD Unavailable [phone] Malcolm Castro MD Unavailable [phone] Neeraj La MD Unavailable [phone] Rafa Chavez DO Primary Care Provider + [phone] Rafa Chavez DO Primary Care Provider [phone] Ramón Morales MD Unavailable [phone] Yfn Gill MD Unavailable [phone] Nabil Jacobs MD Unavailable Encounter Details Date Type Department Care Team (Latest Contact Info) Description 09/27/2024 Results Follow-Up [facility] Group Cardiology [address] [facility] [address], [place] [address] Nabil Jacobs MD [address] [facility] [address] [place] [address] Transthoracic Echo (TTE) Complete W [...] on file 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 Minimize further functional decline 2. Maximize quality of life 3. Control pain Strategies: - Activity/exercise program recommendation - Conservative stepwise pain medicine strategy with multi-disciplinary approach - Recommend healthy lifestyle strategies and compensatory methods as needed documented as of this encounter Visit Diagnoses Not on filedocumented in this encounter Care Teams Field Administrative Assistant Relationship Specialty Start Date End Date Rafa Chavez DO [address] [place] [address] PCP - General Internal Medicine 06/01/24 10/03/24 Rafa Chavez DO [address] [facility] [address] [place] [address] PCP - General Internal Medicine 10/04/24 Yfn Gill MD Referring Physician Nephrology 01/22/22 10/03/24 Aguila Chris MD Consulting Physician Cardiology 01/22/22 10/03/24 [place] [address] [address] Consulting Physician Endocrinology Diabetes & Metabolism 01/22/22 10/03/24 Neeraj La MD [facility] [facility] [address] [id number] [place] [address] Surgeon Vascular Surgery 01/30/22 10/03/24 Ramón Morales MD [address] [place] [address] Consulting Physician Urology 10/04/24 Yfn Gill MD [address] [facility] [address] [place] [address] Referring Physician Nephrology 10/04/24 Nabil Jacobs MD [address] [place] [address] [address] [place] [address] Consulting Physician Cardiology 10/04/24 documented as of this encounter
[2024-11-08 13:37] LABS: INR 1.0; Partial Thromboplastin Time 24.9 Seconds (22.3-36.8); Prothrombin Time 13.2 Seconds (11.1-14.7)
== END 2024-11-08 12:22 | disposition home or self-care (01) ==
LOC: ANHSURGERY 12:29
PROVIDERS: Anesthesiology; PCP Internal Medicine; Visit Provider Urology
DX: C67.9 Malignant neoplasm of bladder, unspecified (principal); N18.32 Chronic kidney disease, stage 3b
CPT/HCPCS: 36415; 85610; 85730; 87086

== ENCOUNTER 2024-11-14 00:17 | Day surgery (SDC) | payer MEDICARE, SELFPAY ==
--- NOTE | 2024-11-06 08:43 | PC.NURSE ---
Report to the Outpatient Waiting Room, entrance under the green pavilion located off [facility], at time _6 AM on date _11/14/24 . Planned Procedure Time: _7:30 AM .? Time changes happen often and if your time is changed the preop area will call you the afternoon before. - You and your visitor will be asked to self-screen and do not enter if you have any COVID symptoms. Please call surgeon if you need to reschedule. - A mask is optional within the hospital at this time. Patients may have clear liquids (water, carbonated beverages, clear teas, apple juice) until 3 hours prior to surgery ( 4:30 AM) with a maximum of 20 ounces. - No food from midnight until time of surgery and no smoking, or chewing tobacco (or any form of nicotine). No chewing gum, candy or mints. - Take only the following medications with a SIP of water on the morning of surgery: GABAPENTIN,HYDRALAZINE,METOPROLOL,AMLODIPINE DO NOT STOP ANY OF YOUR OTHER PRESCRIPTION MEDICATIONS PRIOR TO SURGERY EXCEPT THE FOLLOWING Hold all vitamins and supplements for 3 days per anesthesiologist.LAST DOSE 11/10/24 Medications to discontinue per physician ____WIFE STATES HOLD PLAVIX AND ASPIRIN_7 DAYS PRE OP PER DR BELTRAN Date to take last dose___11/06/24 Please no make-up, nail maltese, hairspray, perfume, deodorant, or body powder the day of surgery.? No jewelry (including any body piercings) or valuables the day of surgery, leave them at home.? Please take a shower or bath the night before, or the morning of, surgery with an antibacterial soap.? Wear comfortable, loose fitting clothing.? Children are encouraged to wear pajamas. - Jewelry must be removed prior to entering the operating room.? Rings and piercings that are not removed may be cut off. - The hospital will not accept responsibility for valuables.? - Please leave all valuables, including medications, at home the day of surgery. If you are going home after surgery, a licensed livery car driver must drive you home.? - NO public transportation without another adult if you receive anesthesia. - We recommend that an adult stay with you for 24 hours following discharge. - We also recommend that you do not drive, make important decision, drink alcoholic beverages, or take any drugs that were not prescribed by your health care provider for at least 24 hours after your discharge time. Follow any additional instructions given to you from your surgeon. Telephone instructions given to _PTS DANIELLE and asked if any additional questions and then verbalized understanding. Patient advised to call surgeon office or pre surgery nurse liaison [phone] if any additional questions.
[2024-11-06 09:22] VITALS: BMI 39.2
[2024-11-14] VITALS (7 sets, daily range): BP systolic 105–141; BP diastolic 51–78; PULSE 73–84; RESP 10–17; TEMP 36.6; O2SAT 93–98
--- OUTSIDE RECORDS SUMMARY | 2024-11-14 00:19 | XMS_ITS | Continuity of Care Document ---
Author Organization [facility] Address [address] [place] [address] Phone Care Team Providers Care Health Science Writer Name Role Phone Zaheer Tom Unavailable Unavailable [...] Diagnoses Date Provider Providers Copied on Encounter [facility], [address], [place], [place], [id number], [place] tel:[phone] SEC [facility] No Information 0 Vaishali Schwab. [facility] [address], [address], [place]. tel:[phone] Referring Provider: Zaheer evans, [address] [address], [place], [address]. tel:[phone] [facility], [address], [place], [place], [id number], [place] tel:[phone] [facility] [place] No Information 3-201 0 Krishnasamy Zaheer. [address] [place], [place] [address]ate [place] [address], [place], [place], [facility], [place]. tel:[phone] [facility], [address], [place], [place], [address], [place] tel:[phone] SEC [facility] No Information 200 [address] [employer]. [address], [address], [place], [place], [address], [place]. tel:[phone] Referring Provider: Zaheer evans, [address] [place], [place] [address]ate [facility] 102, [place], [place], [facility]. tel:[phone] sulting Provider: Leif Pineda, [address] [place] [address], [place], [facility]. tel:[phone] [facility], [address] [place] [address] [address], [place], [place], [id number], [place] tel:[phone] [facility] No Information 9 Krishnasamy Zaheer. [address] [place], [place] [address]ate [facility] 102, [place], [facility], [place]. tel:[phone] Referring Provider: Zaheer evans, [address] [place], [place] [address] [facility] 102, [place], [facility]. tel:[phone] [facility], [address] [place] [address] [address], [place], [place], [id number], [place] tel:[phone] [facility] [place] No Information 200 9 Krishnasamy Zaheer. [address] [place], [place] [address] [facility] 102, [place], [facility], [place]. tel:[phone] [facility], [address], [place], [place], [id number], [place] tel:[phone] [facility] No Information 200 7 Juan Daniel Rios. [address] [facility], [address], [place], [place], [address], [place]. tel:[phone] Family History Family Member Type Diagnosis Age At Onset No Information Payers Payer name Insurance type Covered democrat ID Authoriza tion(s) [place] [id number] Social History Type Description Quantity Date Captured [...]
--- OUTSIDE RECORDS SUMMARY | 2024-11-14 00:19 | XMS_ITS | Data Portability ---
Author Organization [facility] [employer], Main Office Address [address] [place] [address] Care Team Providers Care Financial Services Manager Name Role Phone HOLDEN CAIN Primary Care Provider HOLDEN CAIN Referring Provider Assessment Encounter Date Assessment Date Assessment LastModified by Organization Details LastModified Time 01/27/2024 01/27/2024 This note is dictated and transcribed by [employer]. Back Grinder variances may occur. Despite proofreading, typographical errors may occur. Occasional wrong-word or 'uqzxr-e-hozf' substitutions may have occurred due to the inherent limitations of voice recording. Read the chart carefully and recognize, using context, where substitutions have occurred. Not available 01/27/2024 14:32:20 05/11/2024 05/11/2024 This note is dictated and transcribed by [employer]. Back Grinder variances may occur. Despite proofreading, typographical errors may occur. Occasional wrong-word or 'ikcem-u-anzq' substitutions may have occurred due to the inherent limitations of voice recording. Read the chart carefully and recognize, using context, where substitutions have occurred. Not available 05/11/2024 16:20:38 08/07/2024 08/07/2024 This note is dictated and transcribed by [employer]. Back Grinder variances may occur. Despite proofreading, typographical errors may occur. Occasional wrong-word or 'udxcz-q-iuoi' substitutions may have occurred due to the [...] acetonide 0.1 % topical cream 2024 025 [facility], [address], [place], [address], 08/07/2024 16:35:20 ammonium lactate 12 % lotion 2022 023 [facility][id number], [address], [place], [address], 03/30/2023 15:16:36 Patient TargetsNo targets recorded. Patient Instructions Encounter Date Encounter Id Patient Instructions Last Modified By Organization Details Last Modified Time 05/11/2024 [id number] diabetic foot care education Not available 05/11/2024 16:21:28 Reason for Referral None Reported. Problems Name Problem SNOMED Code Status Onset Date Resolution Date Notes Provider Name and Address Organization Details Recorded Time Arthritis 7472022 Active 2022 Yovana crooks [facility] 3 14:52:19 Diabetes mellitus 24958287 Active 2022 Yovana crooks [facility] 3 14:52:25 Ear problem 378358432 Active 2022 Yovana crooks [facility] 3 14:52:32 Disorder of eye 070567342 Active 2022 Yovana crooks [facility] 3 14:52:40 Heart disease 93088553 Active 2022 Yovana crooks [facility] 3 14:52:46 Hyperchole sterolemia 61848669 Active 2022 Yovana crooks [facility] 3 14:52:56 Kidney disease 86302384 Active 2022 Yovana crooks, [facility] 3 14:53:05 Obesity 584793825 Active 2022 Yovana Arvizu null, [facility] 3 14:53:12 Sleep disorder 94491360 Active 2022 Yovana crooks, [facility] 3 14:53:29 Dystrophia unguium 05967185 Active 2022 Merrick Cardoso DPM [address], [address], [place], [address] , [facility] 3 15:14:00 Acquired hallux limitus of right great toe 4960213239063 100 Active 2022 Merrick Cardoso DPM [address], [address], [place], [address] , [facility] 3 15:14:44 Foot callus 153017497 Active 2022 Merrick Cardoso DPM [address], [address], [place], [address] , [facility] 3 15:15:32 Fissure in skin 48901975 Active 2022 Merrick Cardoso DPM [address], [address], [place], [address] , [facility] 3 15:15:39 Edema of lower extremity 239379480 Active 2024 Merrick Cardoso DPM [address], [address], [place], [address] , [facility] 5 16:21:15 Severe dry skin 506605472 Active 2024 Merrick Cardoso DPM [address], [address], [place], [address] , [facility] 5 16:34:39 Notes:back/neck problem, pro state, urinary/bladder/kidney problems, use of blood thinners Problem Notes None recorded. Procedures Surgical History Date Name Laterality Status Provider Name and Address Organization Details Recorded Time 01/27/20 24 Nail Debridement completed Merrick Cardoso DPM [address], [address], [place], [address], [facility] [employer] [facility] 01/27/2024 14:31:56 01/12/20 23 Nail Debridement completed Merrick Cardoso DPM [address], [address], [place], [address], [facility] [employer] [facility] 01/11/2023 15:13:45 Knee Surgery completed Not Available [facility] 07/01/2022 13:12:58 procedure on heart completed Not Available [facility] 07/01/2022 13:12:58 procedure on urinary bladder completed Not Available [facility] 07/01/2022 13:12:58 Imaging Results None recorded. Procedure Notes None recorded. Medical Equipment None Reported. Allergies Allergen ID Allergen Name Allergen Category Reaction Reaction Severity Criticality Documentation Date Start Date Code Code System Note Provider Name and Address Organization Details Recorded Time 74554 codeine medicatio n itching Not available Not available 07/01/2022 2670 RxNorm Not Available [facility] 13:15:32 Medications Name Sig Start Date Stop [...] Updated DateTime 5 172.72 cm 39.5 kg/m2 055671. 02 g 102 /min 16 /min 97 % 97 % 126/66 mm[Hg] Marta LAMB - Anisha [place] [facility] [employer] [facility] 5 15:19:04 Date Recorded Body height Body mass index (BMI) Body weight Heart rate Respiratory rate Oxygen saturation Oxygen saturation in Arterial blood by Pulse oximetry Systolic And Diastolic Provider Name and Address Organization Details Last Updated DateTime 4 172.72 cm 39.5 kg/m2 905736. 02 g 96 /min 14 /min 98 % 98 % 163/77 mm[Hg] Marta Reinaldo [facility] [employer] [facility] 4 16:40:20 Date Recorded Body height Body mass index (BMI) Body weight Heart rate Respiratory rate Body temperature Oxygen saturation Oxygen saturation in Arterial blood by Pulse oximetry Systolic And Diastolic Provider Name and Address Organization Details Last Updated DateTime 5 172.72 cm 39.5 kg/m2 210249. 02 g 87 /min 18 /min 97.6 [degF] 97 % 97 % 120/80 mm[Hg] Deanna Rosalba [facility] [employer] [facility] 5 16:07:45 Date Recorded Body height Body mass index (BMI) Body weight Heart rate Respiratory rate Oxygen saturation Oxygen saturation in Arterial blood by Pulse oximetry Systolic And Diastolic Provider Name and Address Organization Details Last Updated DateTime 4 172.72 cm 39.5 kg/m2 631572. 02 g 85 /min 14 /min 98 % 98 % 137/75 mm[Hg] Marta Najera [facility] [employer] [facility] 4 14:11:03 Date Recorded Body height Body mass index (BMI) Body weight Heart rate Respiratory rate Oxygen saturation Oxygen saturation in Arterial blood by Pulse oximetry Systolic And Diastolic Provider Name and Address Organization Details Last Updated DateTime 3 172.72 cm 39.5 kg/m2 557533. 02 g 99 /min 14 /min 97 % 97 % 143/73 mm[Hg] Marta Najera [facility] [employer] [facility] 3 14:38:18 Social History None recorded. Functional Status Question Answer Note LastModified by Organization D etails LastModified Time What is your level of alcohol consumption? None [email or web address] Information not available 01/11/2023 Mental Status None recorded. Family History Relationship Description Onset Age of this Age Resolved Age Notes LastModified by Organization Details LastModified Time Unspecified Relation Hypertensive disorder MIGRATION.[id number] [id number] Not available 07/01/2022 13:12:59 Unspecified Relation Diabetes mellitus MIGRATION.005 [id number] Not available 07/01/2022 13:12:59 Unspecified Relation Kidney disease MIGRATION.477 [id number] Not available 07/01/2022 13:12:59 Unspecified Relation Arthritis [...] HAVE YOU BEEN HOSPITALIZED OR SEEN IN [facility] IN THE PAST YEAR ? [...] SNOMED-CT Code Diagnosis ICD10 Code Diagnosis Note [id number] Groge Griffin MD [facility] [address] [address] 02/13/2021 00:00:00 02/13/2021 11:18:11 [id number] Merrick Cardoso DPM [facility] [place] [address] [place] [address] 01/11/2023 14:37:23 01/20/2023 11:58:11 Diabetes mellitus 47877237 E11.40 Patient educated on neuropathy , diabetes, diabetic diet, and daily foot exams. Patient is to check feet daily for new wounds, blisters, redness to prevent infection and ulceration s to the feet. Patient will return to clinic in 3 months for diabetic foot workup. Dystrophia unguium 56936 009 L60.3 left great toenailDeb rided without incident follow-up as needed Acquired h allux limitus of right great toe 1828847613 563146 M20.5X1 educated on conditionC ontinue supportive shoe gearRange of motion exercises dailyRice therapyFol low-up as needed [id number] Merrick Cardoso DPM [facility] [place] [address] [address] 03/30/2023 14:22:28 04/02/2023 09:27:28 Foot callus 190078041 L84 right footuse p[place] dailyfollo w up as needed Fissure in skin 28084335 R23.4 keep area cleancont DM insolesmay require more support to prevent sheering in shoes [id number] Merrick Cardoso DPM [facility] [place] [address] [place] [address] 07/06/2023 16:36:52 07/07/2023 13:50:23 Foot callus 367039817 L84 resolvedus e pumas stone dailyno further paincont supportive shoefollow up as needed [id number] Merrick Cardoso DPM [facility] [place] [address] [place] [address] 01/27/2024 13:57:23 01/27/2024 14:38:22 Diabetes mellitus 77130032 E11.40 continue diabetic control per PCP recommenda tion Acquired h allux limitus of right great toe 4342643041 556868 M20.5X1 educated on conditionC ontinue supportive shoe gearRange of motion exercises dailyRice therapywil l monitor Dystrophia unguium 07254 009 L60.3 left great toenailtoe nails debrided without incident [id number] Merrick Cardoso DPM [facility] Vignesh Beth [address] [place] [address] 05/11/2024 15:12:23 05/16/2024 15:30:57 Diabetes mellitus 81728129 E11.40 continue diabetic control per PCP recommenda tionrecomm end supportive shoe gearCheck foot daily for wounds infectionF ollow-up in 3 months for diabetic foot care Edema of l ower extremity 565113733 R60.0 recommend chronic compressio n stockings bilateral lower extremityW hen at rest elevate legsLow-so dium diet [id number] Merrick Cardoso DPM [facility] [place] [address] [place] [address] 08/07/2024 15:38:52 08/21/2024 10:51:48 Fissure in skin 04424760 R23.4 keep area cleancont DM insolesmay require more support to prevent sheering in shoesfollo w-up 1 week if not healed Severe dry skin 77413857 2 L85.3 right plantar foot Health Concerns Section Related Observation LastModified by Organization Detai ls LastModified Time None Recorded Concern Status LastModified by Organization Details LastModified Time None Recorded Advance Directives Directive None Recorded Payers Insurance Date Sequence Insurance Name Policy Number Policy Fraga Covered Member ID Fraga Member ID Guarantor Name 08/21/2024 1 [employer] (MEDICARE REPLACEMENT/A DVANTAGE - PPO) Gabriel Celeste [id number] Gabriel Celeste Notes Date Note Type Note Provider Name and Address Organization Details Recorded Time 3 text/html Patient is a 77 yr old male who presents for callus to the plantar foot. Patient denies any wounds. Patient denies any other pedal complaints. Merrick Cardoso DPM [address] [address], [place], [address], [facility] [employer] 04/02/2023 09:14:24 4 text/html Patient follows up for callus, he states with proper shoe gear and use of pumas stone he no longer has pain or the callus. Denies any new complaints. Merrick Cardoso DPM [address], [place], [address], [employer] 07/07/2023 10:04:27 4 text/html . Patient is [...] Cardoso DPM [address], [place], [address], [employer] 01/27/2024 14:33:25 5 text/html . Patient is a 78-year-old male diabetic who returns the office for routine diabetic foot care. Patient states overall he is doing well denies any wounds or infection of the feet. Patient does have swelling of his lower extremities that is qcvb-vd-svgxtcbn in nature he denies any calf pain or open wounds to the lower legs I did recommend compression stockings he is currently being evaluated for congestive heart failure. Patient denies any other complaints. Merrick Cardoso DPM [address], [place], [address], [employer] 05/11/2024 16:21:52 5 text/html . Patient is [...] Cardoso DPM [address], [place], [address], [employer] 08/21/2024 09:42:51
--- OUTSIDE RECORDS SUMMARY | 2024-11-14 00:19 | XMS_ITS | Encounter Summary ---
Author Organization [facility] [place] [facility] Address [address] [place] [address] Phone Care Team Providers Care Lumber Trimmer Name Role Phone Arnel Gonzalez MD Primary Care Provider + [phone] Yfn Gill MD Unavailable [phone] Aguila Chris MD Unavailable [phone] Malcolm Castro MD Unavailable [phone] Neeraj La MD Unavailable [phone] Armand Howard RN Unavailable Unavaila August Hsu Primary Care Provider Miguel Torres DO Primary Care Provider [phone] Rafa Chavez DO Primary Care Provider + [phone] Rafa Chavez DO Primary Care Provider + [phone] Ramón Morales MD Unavailable [phone] Yfn Gill MD Unavailable [phone] Nabil Jacobs MD Unavailable Encounter Details Date [...] on file Legal Sex 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 Gender Identity Not on file Sexual Orientation [...] COVID: Suspected 05/05/2022 05/05/2022 05/05/2022 12:26 PM BACK TENDER CYL[employer]ER COVID: Suspected 05/05/2022 05/05/2022 05/05/2022 8:19 PM BACK TENDER CYLINDER COVID: Suspected 03/19/2024 03/19/2024 03/19/2024 3:22 AM BACK TENDER CYLINDER documented as of this encounter Care Teams Lumber Trimmer Relationship Specialty Start Date End Date Arnel Gonzalez MD [address] [place] [address] PCP - General 07/19/13 07/05/23 August Triana PA [address] [place] [address] PCP - General Physician Iron Caster 07/06/23 01/16/24 Miguel Torres DO [address] [place] [address] [address] [place] [address] PCP - General Internal Medicine 01/17/24 05/31/24 Rafa Chavez, DO [address] [place] [address] [address] [place] [address] PCP - General Internal Medicine 06/01/24 10/03/24 Rafa Chavez, DO [address] [place] [address] [facility] [address] [place] [address] PCP - General Internal Medicine 10/04/24 Yfn Gill MD [address] [place] [address] [address] [place] [address] Referring Physician Nephrology 01/22/22 10/03/24 Aguila Chris MD [address] [place] [address] [address] [place] [address] Consulting Physician Cardiology 01/22/22 10/03/24 [place] [address] [place] [address] Consulting Physician Endocrinology Diabetes & Metabolism 01/22/22 10/03/24 Neeraj La MD [address] [facility] [address] [facility] [address] [place] [address] Surgeon Vascular Surgery 01/30/22 10/03/24 Armand Howard, RN Registered Nurse 06/30/22 07/02/22 Ramón Morales MD [address] [place] [address] Consulting Physician Urology 10/04/24 Yfn Gill MD [address] [facility] [address] [place] [address] Referring Physician Nephrology 10/04/24 Nabil Jacobs MD [address] [facility] [address] [place] [address] Consulting Physician Cardiology 10/04/24 documented as of this encounter
--- OUTSIDE RECORDS SUMMARY | 2024-11-14 00:19 | XMS_ITS | Referral Summary ---
Author Organization [facility] Address [address] [place] [address] Care Team Providers Care Dinkey Engine Firer/Fireman Name Role Phone Rafa Chavez DO Primary Care Provider [phone] Ramón Morales MD Unavailable [phone] Yfn Gill MD Unavailable [phone] Nabil Harding MD Unavailable Encounters Date Type Department Care Team Description 10/24/2024 Telephone [facility] Cardiology [address] [address] [address] [place] [address] Nabil Harding MD 10/12/2024 Telephone [facility] [address] [facility] [address] [place] [address] Terra Joiner PA Prior Auth (Jhony) 10/12/2024 Orders Only [facility] Vascular and Vein Surgery [address] [place] [address] Neeraj La MD Bilateral carotid artery stenosis (Primary Dx); Aftercare following surgery of the circulatory system 10/12/2024 9:30 AM CDT Office Visit [facility] Vascular and Vein Surgery [address] [place] [address] Deepthi Vega PA Carotid stenosis, right (Primary Dx); Hyperlipidemia, unspecified hyperlipidemia type; Hypertension associated with diabetes (HCC); Type 2 diabetes mellitus with other specified complication, without long-term current use of insulin (HCC) 10/12/2024 8:31 AM CDT - 10/12/2024 11:59 PM CDT Hospital Encounter [facility] Medical Office Building 2 Vascular [address] [place] [address] Stenosis of left carotid artery Discharge Disposition: Discharge to home or self care 10/04/2024 Telephone [facility] [address] [place] [address] [address], [place] [address] Terra Joiner PA Med Management 09/27/2024 Results Follow-Up [facility] Cardiology [address] [facility] [address], [place] [address] Nabil Harding MD Transthoracic Echo (TTE) Complete W Doppler/CF 09/26/2024 1:00 PM CDT Ancillary Procedure [facility] Cardiology [address] [facility] [address] [place] [address] Coronary artery disease involving [place] coronary artery of [place] heart without angina pectoris; S/P aortic valve replacement with bioprosthetic valve; Cardiomyopathy, ischemic 08/23/2024 1:45 PM CDT Office Visit [facility] Cardiology [address] [facility] [address] [place] [address] Nabil Harding MD Coronary artery disease involving [...] 1 tablet (300 mg total) by mouth social insurance specialist before breakfast 0 Active alpha lipoic acid [...] (06/09/2022): Added automatically from request for surgery [id number] Carotid stenosis, right 01/07/2022 Overview (01/07/2022): Added automatically from request for surgery [id number] Assessment & Plan (10/12/2024 9:34 AM CDT): Continues to do well status post right TKR. Asymptomatic moderate left ICA stenosis. Will have patient follow-up in 1 year with repeat bilateral carotid artery duplex. Assessment & Plan (04/19/2023 1:00 PM FOUNDATION ENGINEER): Status post TCAR. Stent patent. Continue anti-platelet therapy follow-up 6 months. Assessment & Plan (03/12/2022 5:16 PM FOUNDATION ENGINEER): Impression: Patient is status post right TCAR. [...] (02/05/2020): Added automatically from request for surgery [id number] Hx of colonic polyps 10/10/2019 Overview (10/10/2019): Added automatically from request for surgery [id number] History of colon polyps 07/10/2019 Overview (07/10/2019): Added automatically from request for surgery [id number] Hypertension associated with diabetes 06/29/2019 Assessment & Plan (06/08/2024 2:36 PM FOUNDATION ENGINEER): Chronic problem, Controlled on metoprolol, Entresto, HCTZ, bumetanide, hydralazine, amlodipine. No changes. Assessment & Plan (04/19/2023 1:00 PM FOUNDATION ENGINEER): Hypertension chronic controlled. Continue current medical management [...] a associated with type 2 diabetes mellitus ([facility]) 05/06/2015 Overview (08/07/2016): Type 2 diabetes mellitus with complication Assessment & Plan (06/08/2024 2:36 PM FOUNDATION ENGINEER): Chronic problem. On statin therapy, no changes. Assessment & Plan (04/19/2023 1:00 PM FOUNDATION ENGINEER): Hyperlipidemia chronic and controlled. Continue current medical [...] complication Assessment & Plan (06/08/2024 2:37 PM FOUNDATION ENGINEER): Chronic problem, improving but not at goal. [...] on file Legal Sex Male 1:58 AM FOUNDATION ENGINEER Gender Identity Not on file Sexual Orientation Not on file Last Filed Vital Signs Vital Sign Reading Time Taken Comments Blood Pressure 154/77 10/12/2024 9:16 AM CDT Pulse 73 10/12/2024 9:16 AM CDT Temperature 36.7 C (98 F) 04/17/2024 7:04 AM FOUNDATION ENGINEER Respiratory Rate 18 06/08/2024 1:27 PM FOUNDATION ENGINEER Oxygen Saturation 93% 08/23/2024 1:04 PM CDT [...] Chronic Care Management No change(04/14 11:08 AM FOUNDATION ENGINEER) No Pool Frey, RN Note: Problem: Chronic Pain Goals: 1. Minimize further functional decline 2. Maximize quality of life 3. Control pain Strategies: - Activity/exercise program recommendation - Conservative stepwise pain medicine strategy with multi-disciplinary approach - Recommend healthy lifestyle strategies and compensatory methods as needed Medical Devices Implanted Type Area Plumbing Instructor Device Identifier Shelf Expiration Date Model / Serial / Lot Total Knee Left: Knee Physiqtronic Inc Resolute [place] 3mm 2.1-2.7fr 12mm 140cm Rapid Exchange Radiopaque [id number] - [id number] Implanted:Qty: 1 on 09/03/2021 by Bindu Goins MD at [facility] Medtronic Inc 06/11/2024 [id number] / / Medtronic Inc Resolute [place] 3.5mm 2.1-2.7fr 15mm 140cm Rapid Exchange [id number] - [id number] Implanted:Qty: 1 on 09/03/2021 by Bindu Goins MD at [facility] Medtronic Inc 04/04/2024 [id number] / / Angio-Seal Vip 6fr Closere Device [id number] - [id number] Implanted:Qty: 1 on 09/03/2021 by Bindu Goins MD at [facility] TerZouxiu Miya 06/02/2022 [id number] / / Fleck Medical Inc Enroute Uber Flex 8mm .065in 40mm 57cm Delivery System Angle Tip [id number] - [id number] Implanted:Qty: 1 on 01/29/2022 by Neeraj La MD at [facility] Right: Carotid [employer]ck [employer] Inc 08/30/2024 [id number] / / [id number] Matilde Biomet Inc 4.5mm 16mm Fix Screw Bone [id number] - [id number] Implanted:Qty: 3 on 06/30/2022 by Fredy Nguyen MD at [facility] N/A: Spine Cervical MATILDE BIOMET SPINE INC [id number] 6 / / Musculoskeletal Transplant 12.6j00f4ao Frozen Spine 7d Lordotic Trapezoid Spacer Allograft 112649 - [id number] - [id number] Implanted:Qty: 1 on 06/30/2022 by Fredy Nguyen MD at [facility] N/A: Spine Cervical Musculoskeletal Transplant [id number] 03/25/2025 [id number] / [id number] / Musculoskeletal Transplant [id number] Frozen Spine 7d Lordotic Trapezoid Spacer Allograft 811822 - [id number] - [id number] Implanted:Qty: 1 on 06/30/2022 by Fredy Nguyen MD at [facility] N/A: Spine Cervical Musculoskeletal Transplant [id number] 01/03/2025 [id number] / [id number] / Musculoskeletal Transplant 12.8c80x5dw Frozen Spine 7d Lordotic Trapezoid Spacer Allograft 294020 - [id number] - [id number] Implanted:Qty: 1 on 06/30/2022 by Fredy Nguyen MD at [facility] N/A: Spine Cervical Musculoskeletal Transplant [id number] 04/26/2026 [id number] / [id number] / Matilde Bi[employer] Inc C-Ervin Maxan 51mm Level 3 Fix Spine Cervical Anterior Plate Bone [id number] - [id number] Implanted:Qty: 1 on 06/30/2022 by Fredy Nguyen MD at [facility] N/A: Spine Cervical MATILDE BIOMET SPINE INC [id number] / / Matilde Biomet Inc 4mm 16mm Fix Screw Bone [id number] - [id number] Implanted:Qty: 5 on 06/30/2022 by Fredy Nguyen MD at [facility] N/A: Spine Cervical MATLIDE BIOMET SPINE INC [id number] / / Access Closure Inc Device 10ml 5fr Closure Mynx Control 2 Mode Balloon Catheter [id number] - [id number] Implanted:Qty: 1 on 03/27/2024 by Nabil Harding MD at [facility] Access Closure Inc 01/18/2026 [id number] / / [id number] Medtronic Card Vasc Surgery 4.0 X 18mm Ian Clothier Rx Coronary Stent [id number] - [id number] Implanted:Qty: 1 on 04/17/2024 by Nabil Harding MD at [facility] Medtronic Card Vasc Surgery 12/26/2026 [id number] / / [id number] Access Closure Inc Mynx Control 6-7fr 2 Mode Balloon Catheter Sealant Lock Syringe [id number] - [id number] Implanted:Qty: 1 on 04/17/2024 by Nabil Harding MD at [facility] Access Closure Inc 01/05/2026 [id number] / / [id number] Procedures Procedure Name Priority Date/Time Associated Diagnosis Comments US CAROTIDS DUPLEX BILATERAL Schedule Routine, Read Routine (OP Routine) 10/12/2024 9:12 AM CDT Stenosis of left carotid artery TRANSTHORACIC ECHO (TTE) COMPLETE W DOPPLER/CF Routine 09/26/2024 1:45 PM CDT Coronary artery disease involving [place] coronary artery of [place] heart without angina pectoris S/P aortic valve replacement with bioprosthetic valve Cardiomyopathy, ischemic POCT HEMOGLOBIN A1C Routine 06/08/2024 1 :18 PM FOUNDATION ENGINEER Type 2 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 disease, with long-term current use of insulin (HCC) ALBUMIN CREATININE RATIO, URINE Routine 06/08/2024 1:18 PM FOUNDATION ENGINEER Type 2 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 disease, with long-term current use of insulin (HCC) POCT LIPID PANEL Routine 06/08/2024 1:18 AM FOUNDATION ENGINEER Type 2 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 disease, with long-term current use of insulin (HCC) HM CREATININE Routine 05/31/2024 12:52 PM FOUNDATION ENGINEER HEPATITIS C AB REFLEX RNA QUANT PCR Routine 06/14/2019 3:47 PM FOUNDATION ENGINEER COLONOSCOPY REPORT 05/18/2014 from Last 3 Months or Most Recently Relevant to Health Maintenance Results * US Carotids Duplex Bilateral (10/12/2024 9:12 AM CDT) Anatomical Region Laterality Modality Vascular Bilateral Ultrasound 10/12/2024 8:37 AM CDT Narrative 10/12/2024 10:18 AM CDT Carotid Duplex Ultrasound Report Patient Name: TAMIKA AGUILAR D : 1945 (78y 10m) Study Date: 10/12/2024 8:37:55 AM Gender: M Safety Investigator/Cause Analyst: Shalini Cruz Provider: DEEPTHI VEGA Quality: Adequate [...] DIST CCA INTO ICA Rt Stent Prx Quechan PSV 84/12 cm/sec Rt Stent Prx PSV 119/13 cm/sec Rt Stent Mid PSV 91/8 cm/sec Rt Stent Dst PSV 84/11 cm/sec Rt Stent Dst Quechan PSV 88/19 cm/sec FINDINGS: Rt Common Carotid [...] Study Date: 10/12/2024 8:37:55 AM Gender: M Safety Investigator/Cause Analyst: Shalini Cruz Provider: DEEPTHI VEGA Quality: Adequate [...] DIST CCA INTO ICA Rt Stent Prx Quechan PSV 84/12 cm/sec Rt Stent Prx PSV 119/13 cm/sec Rt Stent Mid PSV 91/8 cm/sec Rt Stent Dst PSV 84/11 cm/sec Rt Stent Dst Quechan PSV 88/19 cm/sec FINDINGS: Rt Common Carotid [...] internal carotid artery disease is consistent with nljigqkm74-94% stenosis. 3. Normal, antegrade flow is noted [...] PM CDT Narrative 09/26/2024 4:28 PM CDT [facility] Cardiology [address] [facility] [address], [place] [address] [address] [facility] [address], [place] [address] P:[phone] P:[phone] Echocardiographic Report Patient Name: TAMIKA AGUILAR D : 1945 Study Date: 09/26/2024 1:03:46 PM Gender: M Tech: Location: [facility] Provider: NABIL HARDING Height(Cm): 173 BSA: 2.44 Weight(Kg): 124.3 Heart Rate: 105 BP: 118 / 62 Quality: Good Order Provider: NABIL HARDING PROCEDURES: Echocardiographic Report: Transthoracic echocardiogram with complete 2D, M-Mode, color Doppler examination and Definity contrast. INDICATIONS: S/P TAVR, I25.10 Atherosclerotic heart disease of [place] coronary artery without angina pectoris, and I25.5 [...] Site: Exam was interpreted at [facility] [place]. Left Ventricle: Definity contrast agent used [...] Procedure Note Zack Vásquez MD - 09/26/2024 [facility] Cardiology [address] [facility] [address], [place] [address] [address] [facility] [address], [place] [address] P:[phone] P:[phone] Echocardiographic Report Patient Name: TAMIKA AGUILARPriscilla : 1945 Study Date: 09/26/2024 1:03:46 PM Gender: M Tech: Location: [facility] Provider: NABIL HARDING Height(Cm): 173 BSA: 2.44 Weight(Kg): 124.3 Heart Rate: 105 BP: 118 / 62 Quality: Good Order Provider: NABIL HARDING PROCEDURES: Echocardiographic Report: Transthoracic echocardiogram with complete 2D, M-Mode, color Dopplerexamination and Definity contrast. INDICATIONS: S/P TAVR, I25.10 Atherosclerotic heart disease of [place] coronary arterywithout angina pectoris, and I25.5 Ischemic [...] FINDINGS: Interpretation Site: Exam was interpreted at [facility]. Left Ventricle: Definity contrast agent used [...] (ABNORMAL) POCT hemoglobin A1c (06/08/2024 1:18 PM FOUNDATION ENGINEER) Pathologist [facility] Hemoglobin A1C, POC 8.3 4.0 - 5.6 % Capillary blood 06/08/2024 1 :18 PM FOUNDATION ENGINEER Terra CRUZ POINT OF CARE TEST ENRIQUE CHINO Final Result * (ABNORMAL) Albumin Creatinine Ratio, Urine (06/08/2024 1:18 PM FOUNDATION ENGINEER) Albumin Ur 68.0 mg/L Comment: Interpretive Data No reference range established. Current interpretive data was last revised 2018. Creatinine Ur 32.5 mg/dL JOSE MIGUEL Comment: Interpretive Data No reference range established. Current interpretive data was last revised 2018. Albumin Creatinine Ratio, Ur 209(H) 1 - 29 mg/g JOSE MIGUEL Urine 06/08/2024 1:18 PM FOUNDATION ENGINEER 06/08/2024 7:31 PM FOUNDATION ENGINEER Terra CRUZ LAB URINE ORDERABLES Fi nal Result JOSE MIGUEL [address] [address] [address] [place] [employer] [place] [address] * (ABNORMAL) POCT lipid panel (06/08/2024 1:18 AM FOUNDATION ENGINEER) Cholesterol, POC 154 mg/dL HDL, POC 25 mg/dL Triglycerides, POC 271 mg/dL LDL Cholesterol POC 75 mg/dL Chol/HDL Ratio, POC 6.2 Non-HDL Cholesterol, POC 129 mg/dL Cholesterol Total, POC 154 mg/dL Capillary blood 06/08/2024 1 :18 AM FOUNDATION ENGINEER Terra CRUZ POINT OF CARE TEST ORDE RABLES Final Result * (ABNORMAL) HM CREATININE (05/31/2024 12:52 PM FOUNDATION ENGINEER) SCRIBED Creatinine 2.16(A) 0.7 - 1.3 mg/dl EXTERNAL LAB SCRIBED eGFR in NonAfrican Swazi 30 >59 - NA EXTERNAL LAB Blood 05/31/2024 12:5 2 PM FOUNDATION ENGINEER Historical Provider HEALTH MAINTENANCE Edited Result - Final Performing Organization Address [facility]/ZIP Co de Phone Number EXTERNAL LAB * Hepatitis C Antibody Reflex Hepatitis C RNA Quantitative PCR Blood (06/14/2019 3:47 PM FOUNDATION ENGINEER) Hep C Ab Negative Negative JOSE MIGUEL Blood specimen (specimen) 06/14/2019 3:47 PM FOUNDATION ENGINEER 06/14/2019 8:03 PM FOUNDATION ENGINEER Notinfile Unknown LAB MICROBIOLOGY - GENERAL ORD ERABLES Final Result JOSE MIGUEL [address]ERS [address] [address] [place] [place] [address] * COLONOSCOPY REPORT (05/18/2014) Anatomical Region Laterality Modality Other Narrative 05/18/2014 Ordered by an unspecified provider. us Historical Provider MD FERNANDEZ PROCEDURE ORDERABLES F inal Result from Last 3 Months or Most Recently Relevant to Health Maintenance Insurance [employer] CHOICE MEDICARE PPO [employer] MEDICARE PPO HU[employer] CHOICE MEDICARE PPO HU[employer] CHOICE MEDICARE PPO Advance Directives For more information, please contact: [phone] * Full Code (Latest Code Status on File) Date Activated Date Inactivated Comments 06/30/2022 6:44 PM 07/03/2022 5:32 PM * Full Code Date Activated Date Inactivated Comments 06/30/2022 6:39 PM 06/30/2022 6:44 PM * Full Code Date Activated Date Inactivated Comments 01/29/2022 2:14 PM 01/30/2022 6:06 PM * Full Code Date Activated Date Inactivated Comments 09/03/2021 12:10 PM 09/04/2021 7:37 PM Care Teams Dinkey Engine Firer/Fireman Relationship Specialty Start Date End Date Rafa Chavez DO [address] [place] [address] [address] PCP - General Internal Medicine 10/04/24 Ramón Morales MD [address] [address] Consulting Physician Urology 10/04/24 Yfn Gill MD [address] [place], [place] [address] Referring Physician Nephrology 10/04/24 Nabil Harding MD [address] [facility] [address] [place], [place] [address] Consulting Physician Cardiology 10/04/24
--- OUTSIDE RECORDS SUMMARY | 2024-11-14 00:19 | XMS_ITS | Clinical Summary ---
Author Organization [facility] Address [address] [place] [address] Phone Care Team Providers Care Director Of Culture Name Role Phone Arnel Gonzalez DO Primary Care Provider [phone] Allergies Active Allergy Reactions Criticality Noted Date [...] 300 MG tablet 04/14/2020 Active Droplet Pen [place] 31G X 5 MM misc 07/28/2020 Active [...] 12/22/2021 Active ergocalciferol (VITAMIN D2) 1.25 MG (94098 UT) capsule TAKE ONE CAPSULE BY MOUTH [...] diabetes mellitus with complication Coronary arteriosclerosis in beaver artery 01/29 Overview (03/06/2019): CAD (coronary artery disease) Coronary artery disease involving beaver coronary artery of beaver heart without angina pectoris Coronary atherosclerosis 01/29/2015 Overview (08/30/2020): CAD (coronary artery disease) Coronary artery disease involving beaver coronary artery of beaver heart without angina pectoris H/O: artificial heart [...] history exists Insurance MEDICARE ADVANTAGE Care Teams Director Of Culture Relationship Specialty Start Date End Date Arnel Gonzalez DO [address] [address] PCP - General Internal Medicine 01/31/19
--- OUTSIDE RECORDS SUMMARY | 2024-11-14 00:19 | XMS_ITS | Encounter Summary ---
Author Organization [facility] Healthcare Address [address] [place] [address] Care Team Providers Care Cargo Surveyor Name Role Phone Yfn Gill MD Unavailable [phone] Aguila Chris MD Unavailable [phone] Malcolm Castro MD Unavailable [phone] Neeraj La MD Unavailable [phone] Rafa Chavez DO Primary Care Provider [phone] Rafa Chavez DO Primary Care Provider [phone] Ramón Morales MD Unavailable [phone] Yfn Gill MD Unavailable [phone] Nabil Jacobs MD Unavailable Encounter Details Date Type Department Care Team (Latest Contact Info) Description 09/27/2024 Results Follow-Up [facility] Medical Group Cardiology [address] [facility] [address], [place] [address] Nabil Jacobs MD [address] [facility] [address] [place] [address] Transthoracic Echo (TTE) Complete W [...] on file Legal Sex Male 1:58 AM BILLING SUPERVISOR Gender Identity Not on file Sexual Orientation Not on file documented as of this encounter Plan of Treatment Not on file documented as of this encounter Goals Goal Patient Goal Type Associated Problems Recent Progress Patient-Stated? Author CCM Chronic Pain Care Plan Chronic Care Management No change(04/14 11:08 AM BILLING SUPERVISOR) Pool Welch, KATHERINE Note: Problem: Chronic Pain Goals: 1. Minimize further functional decline 2. Maximize quality of life 3. Control pain Strategies: - Activity/exercise program recommendation - Conservative stepwise pain medicine strategy with multi-disciplinary approach - Recommend healthy lifestyle strategies and compensatory methods as needed documented as of this encounter Visit Diagnoses Not on filedocumented in this encounter Care Teams Cargo Surveyor Relationship Specialty Start Date End Date Rafa Chavez DO [address] [place] [address] PCP - General Internal Medicine 06/01/24 10/03/24 Rafa Chavez DO [address] [facility] [address] [place] [address] PCP - General Internal Medicine 10/04/24 Yfn Gill MD Referring Physician Nephrology 01/22/22 10/03/24 Aguila Chris MD Consulting Physician Cardiology 01/22/22 10/03/24 [place] [address] [address] Consulting Physician Endocrinology Diabetes & Metabolism 01/22/22 10/03/24 Neeraj La MD [facility] [address] [employer] [facility] [place] [address] Surgeon Vascular Surgery 01/30/22 10/03/24 Ramón Morales MD [address] [place] [address] Consulting Physician Urology 10/04/24 Yfn Gill MD [address] [facility] [address] [place] [address] Referring Physician Nephrology 10/04/24 Nabil Jacobs MD [address] [place] [address] [address] [place] [address] Consulting Physician Cardiology 10/04/24 documented as of this encounter
--- OUTSIDE RECORDS SUMMARY | 2024-11-14 00:19 | XMS_ITS | Clinical Summary ---
Author Organization [facility] Address [address] [place] [address] Care Team Providers Care Patcher Helper Name Role Phone Arnel Gonzalez MD Primary Care Provider [phone] Allergies Active Allergy Reactions Criticality Noted Date [...] Type Department Care Team Description 10/18/2024 Telephone [facility] Neurology Speciality [facility] - [address] [place] [address] Devon Houser MD Medication from [...] on file Legal Sex Male 12:11 PM GEAR REPAIRER Gender Identity Not on file Sexual Orientation Not on file Last Filed Vital Signs Vital Sign Reading Time Taken Comments Blood Pressure 138/67 10/12/2023 3:33 PM CDT Pulse 85 10/12/2023 3:33 PM CDT Temperature 37.1 C (98.7 F) 10/12/2023 3:33 PM CDT Respiratory Rate 18 06/22/2023 12:59 PM GEAR REPAIRER Oxygen Saturation 96% 10/12/2023 3:33 PM CDT [...] 03/11/2021, 07/23/2020, Additional history exists PHQ-2 (Physician [place]) 05/03/2024 10/12/2023 Zoster Vaccines Completed 05/07/2021, 02/18/2021 Meningococcal B Vaccine Aged Out No l onger eligible based on patient's age to complete this topic Meningococcal Vaccine Aged Out No jorge kelsi eligible based on patient's age to complete this topic RSV Immunizations Under 20 Months Aged Out No longer eligible based on patient's age to complete this topic Insurance HUMANA Care Teams Patcher Helper Relationship Specialty Start Date End Date Arnel Gonzalez MD [address] [place] [address] [place] [address] PCP - General INTERNAL MEDICINE 06/22/23
--- OUTSIDE RECORDS SUMMARY | 2024-11-14 00:19 | XMS_ITS | Clinical Summary ---
Author Organization [facility] Address [address] [place] [address] Care Team Providers Care Motor Vehicle Operator Road Supervisor Name Role Phone Rafa Chavez DO Primary Care Provider [phone] Ramón Morales MD Unavailable [phone] Yfn Gill MD Unavailable Nabil Harding MD Unavailable Allergies Active Allergy [...] 1 tablet (300 mg total) by mouth tenant coordinator before breakfast 0 Active alpha lipoic acid [...] (06/09/2022): Added automatically from request for surgery [id number] Carotid stenosis, right 01/07/2022 Overview (01/07/2022): Added automatically from request for surgery [id number] Assessment & Plan (10/12/2024 9:34 AM CDT): Continues to do well status post right TKR. Asymptomatic moderate left ICA stenosis. Will have patient follow-up in 1 year with repeat bilateral carotid artery duplex. Assessment & Plan (04/19/2023 1:00 PM DIRECTOR OF WOMEN'S SERVICES): Status post TCAR. Stent patent. Continue anti-platelet therapy follow-up 6 months. Assessment & Plan (03/12/2022 5:16 PM DIRECTOR OF WOMEN'S SERVICES): Impression: Patient is status post right TCAR. [...] (02/05/2020): Added automatically from request for surgery [id number] Hx of colonic polyps 10/10/2019 Overview (10/10/2019): Added automatically from request for surgery [id number] History of colon polyps 07/10/2019 Overview (07/10/2019): Added automatically from request for surgery [id number] Hypertension associated with diabetes 06/29/2019 Assessment & Plan (06/08/2024 2:36 PM DIRECTOR OF WOMEN'S SERVICES): Chronic problem, Controlled on metoprolol, Entresto, HCTZ, bumetanide, hydralazine, amlodipine. No changes. Assessment & Plan (04/19/2023 1:00 PM DIRECTOR OF WOMEN'S SERVICES): Hypertension chronic controlled. 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 Continue medical therapy. Mixed diabetic hyperlipidemi a associated with type 2 diabetes mellitus ([facility]) 05/06/2015 Overview (08/07/2016): Type 2 diabetes mellitus with complication Assessment & Plan (06/08/2024 2:36 PM DIRECTOR OF WOMEN'S SERVICES): Chronic problem. On statin therapy, no changes. Assessment & Plan (04/19/2023 1:00 PM DIRECTOR OF WOMEN'S SERVICES): Hyperlipidemia chronic and controlled. Continue current medical [...] Assessment & Plan (06/08/2024 2:37 PM DIRECTOR OF WOMEN'S SERVICES): Chronic problem, improving but not at goal. [...] Type Department Care Team Description 10/24/2024 Telephone [facility] Cardiology [address] [place] [phone] Nabil Harding MD 10/12/2024 9:30 AM CDT Office Visit [facility] Medical [facility] Vascular and Vein Surgery [address] [place] [address] [address] [place] [phone] Deepthi Vega PA Carotid stenosis, right (Primary Dx); Hyperlipidemia, unspecified hyperlipidemia type; Hypertension associated with diabetes (HCC); Type 2 diabetes mellitus with other specified complication, without long-term current use of insulin (HCC) 10/12/2024 8:31 AM CDT - 10/12/2024 11:59 PM CDT Hospital Encounter [facility] Medical Office Building [address] [place] [address] [address] [place] [address] Stenosis of left carotid artery Discharge Disposition: Discharge to home or self care 10/12/2024 Telephone [facility] of [address] [place] [phone] Terra Joiner PA Prior Auth (Jhony) 10/12/2024 Orders Only [facility] Medical [facility] Vascular and Vein Surgery [address] [place] [address] [place] [phone] Neeraj La MD Bilateral carotid artery stenosis (Primary Dx); Aftercare following surgery of the circulatory system 10/04/2024 Telephone [facility] of [address] [address] Terra Joiner PA Med Management 09/27/2024 Results Follow-Up [facility] Cardiology [address] [facility] [address] [address] Nabil Harding MD Transthoracic Echo (TTE) Complete W Doppler/CF 09/26/2024 1:00 PM CDT Ancillary Procedure [facility] Cardiology [address] [place] [phone] 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; S/P aortic valve replacement with bioprosthetic valve; Cardiomyopathy, ischemic 08/23/2024 1:45 PM CDT Office Visit [facility] Medical Group Cardiology [address] [place] [phone] Nabil Harding MD 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 (Primary Dx); S/P [...] failur e) (HCC) Pneumonia 10/21/2021 hospitalized at [place] with PNA, JUANITA and CHF Cancer (HCC) [...] Relation Name Status Comments Brother Addi Father Mgaed Aguilar (Age 59) Mother Cyndie Aguilar Other [...] Legal Sex Male 1:58 AM DIRECTOR OF WOMEN'S SERVICES Gender Identity Not on file Sexual Orientation Not on file Obstetrics History Last Filed Vital Signs Vital Sign Reading Time Taken Comments Blood Pressure 154/77 10/12/2024 9:16 AM CDT Pulse 73 10/12/2024 9:16 AM CDT Temperature 36.7 C (98 F) 04/17/2024 7:04 AM DIRECTOR OF WOMEN'S SERVICES Respiratory Rate 18 06/08/2024 1:27 PM DIRECTOR OF WOMEN'S SERVICES Oxygen Saturation 93% 08/23/2024 1:04 PM CDT [...] Care Management No change(04/14 11:08 AM DIRECTOR OF WOMEN'S SERVICES) Pool Welch RN Note: Problem: Chronic Pain Goals: 1. Minimize further functional decline 2. Maximize quality of life 3. Control pain Strategies: - Activity/exercise program recommendation - Conservative stepwise pain medicine strategy with multi-disciplinary approach - Recommend healthy lifestyle strategies and compensatory methods as needed Medical Devices Implanted Type Area Slab Inspector Device Identifier Shelf Expiration Date Model / Serial / Lot Total Knee Left: Knee Medtronic Inc Resolute Inglis 3mm 2.1-2.7fr 12mm 140cm Rapid Exchange Radiopaque [id number] - [id number] Implanted:Qty: 1 on 09/03/2021 by Bindu Goins MD at [facility] [employer] Inc 06/11/2024 [id number] / / Medtronic Inc Resolute Inglis 3.5mm 2.1-2.7fr 15mm 140cm Rapid Exchange [id number] - [id number] Implanted:Qty: 1 on 09/03/2021 by Bindu Goins MD at [facility] [employer] Inc 04/04/2024 [id number] / / Angio-Seal Vip 6fr Closere Device [id number] - [id number] Implanted:Qty: 1 on 09/03/2021 by Bindu Goins MD at [facility] 06/02/2022 [id number] / / [employer] Enroute Uber Flex 8mm .065in 40mm 57cm Delivery System Angle Tip [id number] - [id number] Implanted:Qty: 1 on 01/29/2022 by Neeraj La MD at [facility] Right: Carotid [employer] 08/30/2024 SR-[id number] CS / / [id number] Matilde [employer] Inc 4.5mm 16mm Fix Screw Bone [id number] - [id number] Implanted:Qty: 3 on 06/30/2022 by Fredy Nguyen MD at [facility] N/A: Spine Cervical MATILDE [employer]OMET SPINE INC 14-35970 6 / / Musculoskeletal Transplant 12.7w69p0kv Frozen Spine 7d Lordotic Trapezoid Spacer Allograft 604053 - [id number] - [id number] Implanted:Qty: 1 on 06/30/2022 by Fredy Nguyen MD at [facility] N/A: Spine Cervical Musculoskeletal Transplant [id number] 03/25/2025 [id number] / [id number] / Musculoskeletal Transplant 12.8a40a1lt Frozen Spine 7d Lordotic Trapezoid Spacer Allograft 682940 - [id number] - [id number] Implanted:Qty: 1 on 06/30/2022 by Fredy Nguyen MD at [facility] N/A: Spine Cervical Musculoskeletal Transplant [id number] 01/03/2025 [id number] / [id number] / Musculoskeletal Transplant 12.7x22w2ed Frozen Spine 7d Lordotic Trapezoid Spacer Allograft 058817 - [id number] - [id number] Implanted:Qty: 1 on 06/30/2022 by Fredy Nguyen MD at [facility] N/A: Spine Cervical Musculoskeletal Transplant [id number] 04/26/2026 [id number] / [id number] / [employer] C-Ervin Maxan 51mm Level 3 Fix Spine Cervical Anterior Plate Bone 14-135233 - [id number] Implanted:Qty: 1 on 06/30/2022 by Fredy Nguyen MD at [facility] N/A: Spine Cervical [employer] 14-37703 1 / / Matilde [employer] Inc 4mm 16mm Fix Screw Bone 14-395901 - [id number] Implanted:Qty: 5 on 06/30/2022 by Fredy Nguyen MD at [facility] N/A: Spine Cervical [employer]IL[employer] [id number] 6 / / Access Closure Inc Device 10ml 5fr Closure Mynx Control 2 Mode Balloon Catheter [id number] - [id number] Implanted:Qty: 1 on 03/27/2024 by Nabil Harding MD at [facility] Access Closure Inc 01/18/2026 [id number] / / [id number] [facility] [employer]iotronic [facility] Vas Surgery 4.0 X 18mm Inglis Coamo Rx Coronary Stent [id number] - [id number] Implanted:Qty: 1 on 04/17/2024 by Nabil Harding MD at [facility] Medtronic Card Vasc Surgery 12/26/2026 [id number] / / [id number] Access Closure Inc Mynx Control 6-7fr 2 Mode Balloon Catheter Sealant Lock Syringe [id number] - [id number] Implanted:Qty: 1 on 04/17/2024 by Nabil Harding MD at [facility] [employer] Inc 01/05/2026 [id number] / / [id number] Procedures Procedure Name Priority Date/Time Associated Diagnosis Comments US CAROTIDS DUPLEX BILATERAL Schedule Routine, Read Routine (OP Routine) 10/12/2024 9:12 AM CDT Stenosis of left carotid artery TRANSTHORACIC ECHO (TTE) COMPLETE W DOPPLER/CF Routine 09/26/2024 1:45 PM CDT 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 S/P aortic valve replacement with bioprosthetic valve Cardiomyopathy, ischemic POCT HEMOGLOBIN A1C Routine 06/08/2024 1 :18 PM DIRECTOR OF WOMEN'S SERVICES Type 2 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 disease, with long-term current use of insulin (HCC) ALBUMIN CREATININE RATIO, URINE Routine 06/08/2024 1:18 PM DIRECTOR OF WOMEN'S SERVICES Type 2 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 disease, with long-term current use of insulin (HCC) POCT LIPID PANEL Routine 06/08/2024 1:18 AM DIRECTOR OF WOMEN'S SERVICES Type 2 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 disease, with long-term current use of insulin (HCC) HM CREATININE Routine 05/31/2024 12:52 PM DIRECTOR OF WOMEN'S SERVICES HEPATITIS C AB REFLEX RNA QUANT PCR Routine 06/14/2019 3:47 PM DIRECTOR OF WOMEN'S SERVICES COLONOSCOPY REPORT 05/18/2014 from Last 3 Months or Most Recently Relevant to Health Maintenance Results * US Carotids Duplex Bilateral (10/12/2024 9:12 AM CDT) Anatomical Region Laterality Modality Vascular Bilateral Ultrasound 10/12/2024 8:37 AM CDT Narrative 10/12/2024 10:18 AM CDT Carotid Duplex Ultrasound Report Patient Name: TAMIKA AGUILAR D : 1945 (78y 10m) Study Date: 10/12/2024 8:37:55 AM Gender: M Hardness Inspector: Shalini Cruz Provider: DEEPTHI VEGA Quality: Adequate [...] DIST CCA INTO ICA Rt Stent Prx [place] PSV 84/12 cm/sec Rt Stent Prx PSV 119/13 cm/sec Rt Stent Mid PSV 91/8 cm/sec Rt Stent Dst PSV 84/11 cm/sec Rt Stent Dst [place] PSV 88/19 cm/sec FINDINGS: Rt Common Carotid [...] Study Date: 10/12/2024 8:37:55 AM Gender: M Hardness Inspector: Shalini Cruz Provider: DEEPTHI VEGA Quality: Adequate [...] DIST CCA INTO ICA Rt Stent Prx [place] PSV 84/12 cm/sec Rt Stent Prx PSV 119/13 cm/sec Rt Stent Mid PSV 91/8 cm/sec Rt Stent Dst PSV 84/11 cm/sec Rt Stent Dst [place] PSV 88/19 cm/sec FINDINGS: Rt Common Carotid [...] internal carotid artery disease is consistent with mpkmxxyn14-67% stenosis. 3. Normal, antegrade flow is noted [...] W CONTRAST (09/26/2024 1:45 PM CDT) Pathologist [facility] Estimated EF 35-40 % CONS SCIMAGE EF Mod BP 45 % CONS SCIMAGE Anatomical Region Laterality Modality Ultrasound 09/26/2024 1:03 PM CDT Narrative 09/26/2024 4:28 PM CDT [facility] Medical Group Cardiology [address], [place] [address] [address], [place] [address] P:[phone] P:[phone] Echocardiographic Report Patient Name: TAMIKA AGUILAR D : 1945 Study Date: 09/26/2024 1:03:46 PM Gender: M Tech: Location: [facility] Provider: NABIL HARDING Height(Cm): 173 BSA: 2.44 Weight(Kg): 124.3 Heart Rate: 105 BP: 118 / 62 Quality: Good Order Provider: NABIL HARDING PROCEDURES: Echocardiographic Report: Transthoracic echocardiogram with complete 2D, M-Mode, color Doppler examination and Definity contrast. INDICATIONS: S/P TAVR, I25.10 Atherosclerotic heart disease of barrow coronary artery without angina pectoris, and I25.5 [...] FINDINGS: Interpretation Site: Exam was interpreted at [facility]. Left Ventricle: Definity contrast agent [...] Procedure Note Zack Vásquez MD - 09/26/2024 [facility] Medical Group Cardiology [address] [facility] [address], [place] [address] [address], [place] [address] P:[phone] P:[phone] Echocardiographic Report Patient Name: TAMIKA AGUILAR D : 1945 Study Date: 09/26/2024 1:03:46 PM Gender: M Tech: Location: [facility] Provider: NABIL HARDING Height(Cm): 173 BSA: 2.44 Weight(Kg): 124.3 Heart Rate: 105 BP: 118 / 62 Quality: Good Order Provider: NABIL HARDING PROCEDURES: Echocardiographic Report: Transthoracic echocardiogram with complete 2D, M-Mode, color Dopplerexamination and Definity contrast. INDICATIONS: S/P TAVR, I25.10 Atherosclerotic heart disease of barrow coronary arterywithout angina pectoris, and I25.5 Ischemic [...] FINDINGS: Interpretation Site: Exam was interpreted at [facility] [place]. Left Ventricle: Definity contrast agent [...] Vásquez MD 09/26/2024 4:27:56 PM CDT Result [facility] Nabil Harding MD CV ECHO PROCEDURES Final Result * (ABNORMAL) POCT hemoglobin A1c (06/08/2024 1:18 PM DIRECTOR OF WOMEN'S SERVICES) [facility] Hemoglobin A1C, POC 8.3 4.0 - 5.6 % Capillary blood 06/08/2024 1 :18 PM DIRECTOR OF WOMEN'S SERVICES Result [facility] Terra CRUZ POINT OF CARE TEST ORDE RABLES Final Result * (ABNORMAL) Albumin Creatinine Ratio, Urine (06/08/2024 1:18 PM DIRECTOR OF WOMEN'S SERVICES) [facility] Albumin Ur 68.0 mg/L Comment: Interpretive Data No reference range established. Current interpretive data was last revised 2018. Creatinine Ur 32.5 mg/dL JOSE MIGUEL Comment: Interpretive Data No reference range established. Current interpretive data was last revised 2018. Albumin Creatinine Ratio, Ur 209(H) 1 - 29 mg/g JOSE MIGUEL BOWERS Urine 06/08/2024 1:18 PM DIRECTOR OF WOMEN'S SERVICES 06/08/2024 7:31 PM DIRECTOR OF WOMEN'S SERVICES Result [facility] Terra CRUZ LAB URINE ORDERABLES nal Result JOSE MIGUEL [address] [address] Department of Laboratories [place], [place] [id number] * (ABNORMAL) POCT lipid panel (06/08/2024 1:18 AM DIRECTOR OF WOMEN'S SERVICES) [facility] Cholesterol, POC 154 mg/dL HDL, POC 25 mg/dL Triglycerides, POC 271 mg/dL LDL Cholesterol POC 75 mg/dL Chol/HDL Ratio, POC 6.2 Non-HDL Cholesterol, POC 129 mg/dL Cholesterol Total, POC 154 mg/dL Capillary blood 06/08/2024 1 :18 AM DIRECTOR OF WOMEN'S SERVICES Terra CRUZ POINT OF CARE TEST ORDE RABAMBER Final Result * (ABNORMAL) HM CREATININE (05/31/2024 12:52 PM DIRECTOR OF WOMEN'S SERVICES) SCRIBED Creatinine 2.16(A) 0.7 - 1.3 mg/dl EXTERNAL LAB SCRIBED eGFR in NonAfrican [place] 30 >59 - NA EXTERNAL LAB Blood 05/31/2024 12:5 2 PM DIRECTOR OF WOMEN'S SERVICES Historical Provider HEALTH MAINTENANCE Edited Result - Final EXTERNAL LAB * Hepatitis C Antibody Reflex Hepatitis C RNA Quantitative PCR Blood (06/14/2019 3:47 PM DIRECTOR OF WOMEN'S SERVICES) Hep C Ab Negative Negative JOSE MIGUEL BOWERS Blood specimen (specimen) 06/14/2019 3:47 PM DIRECTOR OF WOMEN'S SERVICES 06/14/2019 8:03 PM DIRECTOR OF WOMEN'S SERVICES Notinfile Unknown LAB MICROBIOLOGY - GENERAL ORD ERABLES Final Result JOSE MIGUEL [address] [address] [place] [address] * COLONOSCOPY REPORT (05/18/2014) Anatomical Region Laterality Modality Other Narrative 05/18/2014 Ordered by an unspecified provider. Historical Provider GI PROCEDURE ORDERABLES F inal Result from Last 3 Months or Most Recently Relevant to Health Maintenance Insurance [employer] CHOICE MEDICARE PPO [employer]ICE MEDICARE PPO Advance Directives For more information, please contact: [phone] * Full Code (Latest Code Status on File) Date Activated Date Inactivated Comments 06/30/2022 6:44 PM 07/03/2022 5:32 PM * Full Code Date Activated Date Inactivated Comments 06/30/2022 6:39 PM 06/30/2022 6:44 PM * Full Code Date Activated Date Inactivated Comments 01/29/2022 2:14 PM 01/30/2022 6:06 PM * Full Code Date Activated Date Inactivated Comments 09/03/2021 12:10 PM 09/04/2021 7:37 PM Care Teams Motor Vehicle Operator Road Supervisor Relationship Specialty Start Date End Date Rafa Chavez DO [address] [place] [address] [address] PCP - General Internal Medicine 10/04/24 Ramón Morales MD [address] [place] [address] Consulting Physician Urology 10/04/24 Yfn Gill MD [address] [facility] [address] [place] [address] Referring Physician Nephrology 10/04/24 Nabil Harding MD [address] [facility] [address] [place] [address] Consulting Physician Cardiology 10/04/24
--- OUTSIDE RECORDS SUMMARY | 2024-11-14 00:19 | XMS_ITS | Clinical Summary ---
Author Organization [facility] [employer] Address [address] [place] [address] Care Team Providers Care Health Services Information Specialist Name Role Phone SabrinaArnel barbour Primary Care Provider [phone] Source Comments [facility] [employer],non-[facility] Affiliates and Associated Physician Practices is amultiple site organization consisting of ambulatory clinics and hospital sitesin [place], [place], [place] and [place]. This disclosure is being madepursuant to the Care Everywhere program and may not contain all information available regarding this patient. Last updated 18.[facility] [employer] Allergies Active Allergy Reactions Criticality Noted Date [...] on file Legal Sex Male 5:50 AM CARPET INSTALLER Gender Identity Not on file Sexual Orientation Not on file Last Filed Vital Signs Vital Sign Reading Time Taken Comments Blood Pressure 136/70 05/05/2021 1:09 PM CARPET INSTALLER Pulse 76 05/05/2021 1:09 PM CARPET INSTALLER Temperature - - Respiratory Rate 14 05/05/2021 1:09 PM CARPET INSTALLER Oxygen Saturation 98% 05/05/2021 1:09 PM CARPET INSTALLER Inhaled Oxygen Concentration - - Weight 121.1 kg (267 lb) 05/05/2021 1:09 PM CARPET INSTALLER Height 172.7 cm (5' 8) 05/05/2021 1:09 PM CARPET INSTALLER Body Mass Index 40.6 05/05/2021 1:09 PM CARPET INSTALLER Plan of Treatment Health Maintenance Due Date [...] complete this topic Insurance HU[employer] Care Teams Health Services Information Specialist Relationship Specialty Start Date End Date Arnel Gonzalez DO [address] [facility] [address] [place], [place] [id number] PCP - General 01/03/21
--- NOTE | 2024-11-14 06:49 | P.PNAN_ITS ---
Anes - Initial Pre Proc Eval Procedure: Operation Date: 11/14/24 07:30 Proposed Procedures p Cystoscopy with Bladder Biopsy and Fulguration - Ramón Morales MD Date/Time: 11/14/24 06:49 Surgeon: Ramón Morales MD Pre Op Diagnosis: bladder CA Patient Data Age: 78 Gender: M Height: 1.78 m Weight: 123.85 kg Allergies Allergy/AdvReac Type Severity Reaction Status Date / Time codeine AdvReac Intermediate Itching Verified 11/06/24 08:45 tramadol AdvReac Mild Nausea And Verified 11/06/24 08:45 Vomiting Home Medications ?Medication ?Instructions ?Recorded ?Confirmed ?Type aspirin 81 mg tablet,delayed 81 mg PO DAILY 04/14/19 11/06/24 History release (Adult Aspirin Regimen) alpha lipoic acid 600 mg capsule 600 mg PO HS 12/12/20 11/06/24 History bumetanide 2 mg tablet 2 mg PO BID 07/29/21 11/06/24 History clopidogrel 75 mg tablet 75 mg PO DAILY 09/30/21 11/06/24 History finasteride 5 mg tablet 5 mg PO DAILY #90 tabs 11/29/23 11/06/24 Rx insulin regular hum U-500 conc 500 See Rx Instructions subcut TID #20 12/02/23 11/06/24 Rx unit/mL(3 mL) subcut pen (Humulin mL R U-500 (Conc) Insulin Kwikpen) omeprazole 20 mg capsule,delayed 20 mg PO DAILY #90 caps 12/16/23 11/06/24 Rx release dapagliflozin propanediol 10 mg 10 mg PO DAILY #90 tabs 12/31/23 11/06/24 Rx tablet (Farxiga) ergocalciferol (vitamin D2) 1,250 See Rx Instructions .Route 05/01/24 11/06/24 Rx mcg (50,000 unit) capsule .COMPLEX #13 caps potassium chloride 10 mEq 10 meq PO DAILY #30 tabs 05/31/24 11/06/24 Rx tablet,extended release (Klor-Con) atorvastatin 40 mg tablet (Lipitor) 40 mg PO HS 06/01/24 11/06/24 History amitriptyline 25 mg tablet 25 mg PO DAILY #30 tabs 06/17/24 11/06/24 Rx gabapentin 300 mg capsule 900 mg (3 x 300 mg) PO TID #120 06/17/24 11/06/24 Rx caps hydralazine 50 mg tablet 50 mg PO BID #60 tabs 06/17/24 11/06/24 Rx metoprolol succinate 50 mg 50 mg PO DAILY #30 tabs 06/17/24 11/06/24 Rx tablet,extended release 24 hr multivitamin (Multiple Vitamins 1 tablet PO DAILY #30 tabs 06/17/24 11/06/24 Rx tablet) sacubitril 49 mg-valsartan 51 mg 1 tablet PO BID #60 tabs 06/17/24 11/06/24 Rx tablet (Entresto) vericiguat 10 mg tablet (Verquvo) 10 mg PO DAILY #30 tabs 06/17/24 11/06/24 Rx hydrochlorothiazide 25 mg tablet 25 mg PO DAILY #90 tabs 06/29/24 11/06/24 Rx semaglutide 0.25 mg or 0.5 mg (2 1 mg (1.472 mL) subcut WEEKLY #1 mL 07/25/24 11/06/24 Rx mg/3 mL) subcutaneous pen injector (Ozempic) amlodipine 10 mg tablet See Rx Instructions .Route 07/31/24 11/06/24 Rx .COMPLEX #90 tabs calcitriol 0.25 mcg capsule 0.25 mcg PO DAILY #90 caps 10/23/24 11/06/24 Rx cranberry 500 mg capsule 500 mg PO DAILY 11/06/24 11/06/24 History terazosin 10 mg capsule 10 mg PO HS 11/06/24 11/06/24 History tirzepatide 5 mg/0.5 mL 5 mg subcut WEEKLY 11/06/24 11/06/24 History subcutaneous pen injector (Mounjaro) Laboratory Tests 11/14/24 06:35 POC Capillary Glucose 211 H mg/dl (65-105) Patient hx anesthesia problems: none Family hx anesthesia problems: none Results Review: All pre-operative results and documents have been reviewed as part of the pre- operative evaluation. [facility] Past Medical History Medical History Diabetic polyneuropathy Recurrent urinary tract infection 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, <= 40%) Blindness of left eye Obstructive sleep apnea treated with BiPAP Diabetes Arthritis BPH (benign prostatic hyperplasia) Chronic GERD HTN (hypertension) Hypercholesterolemia CAD (coronary artery disease) CHF (congestive heart failure) Obesity Type 2 diabetes mellitus Hyperlipidemia Surgical History Surgical History History of neck surgery History of cardiac catheterization (08/2021) Moderate pulmonary hypertension, patent vein grafts to the obtuse marginal and RPDA, complex high-grade stenosis to the proximal LAD beginning at the origin of the 1st septal branch and extending about 30 mm distal into the LAD crossing over the diagonal branches as well Hx of LASIK History of transurethral resection of prostate (12/2020) History of aortic valve replacement with bioprosthetic valve (10/2013) Erickson poor seen valve S/P CABG (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) Saphenous vein graft to obtuse marginal, saphenous vein graft to PDA Family History Family History Mother Family history of heart disease in male family member before age 55 Acute myocardial infarction Diabetes mellitus Father Cancer Sibling Diabetes mellitus Sibling Hypertension Social History Social History Smoking packs per day: 3 Smoking cigarettes per day: 60.0 Years smoked: 30 Smoking pack-years: 90.00 Smoking status: Former smoker Tobacco type: cigarettes Second hand tobacco smoke exposure: Yes Smoking end date: 05/03/86 Alcohol intake: unknown Drinks per week: 3 Substance use: never Substance use type: does not use Do You Feel Safe in your Home?: Yes Lack of Transportation: No Lack of Food: Never True Current Housing: I Have Housing Concerned About Future Housing: No Difficulty Paying Gas/Electric Bills: No Difficulty Paying for Meds: No Currently Unemployed: No Education: High School Diploma/GED Difficulty w/ Childcare or Family Care: No Living arrangements: with family Additional living arrangements comments: He lives at home with his of 42 years. They raised 4 children. 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 Gender identity (if verbalized by the patient): Male Spiritual care concerns: No Anes - Eval Final PreProcedure Day of Procedure 11/14/24 06:49 Patient weight: obese Heart: regular rate and rhythm Lungs: clear to auscultation Airway: Mallampati scale class III Neurological: alert and oriented Last oral intake: >/= 8 hours ASA classification: III Emergent: no Anesthetic plan: proceed Anesthesia type and monitoring: general LMA and standard monitoring Results Review: All pre-operative results and documents have been reviewed as part of the pre- operative evaluation. Informed Consent: The patient's anesthetic plan and its attendant risks and benefits were discussed with the patient/family/POA. Questions were solicited and answers provided to the satisfaction of the patient/family/POA.
--- NOTE | 2024-11-14 07:33 | WPDHPUPDATE1 ---
History and Physical Update Update Date/Time: 11/14/24 07:33 History and Physical has been reviewed, including an updated exam of the patient. There are NO changes in the patient's condition. Risks, benefits, and alternatives have been discussed and questions answered. Patient agrees to proceed with procedure.
[2024-11-14] MEDS: ceFAZolin 3 GM/D5W 100 ML 100 ML IVPB (07:39)
[2024-11-14] MEDS: LIDOCAINE 2% JELLY 5 ML TUBE 1 APPLIC MUCOUS MEM (07:55)
--- NOTE | 2024-11-14 08:03 | S_PTH ---
PATIENT: Gabriel Celeste LOC: [facility] U#:[id number] AGE/SX: 78/M ROOM: RE11/14/[address]: Ramón Morales, : 1945 BED: DIS: 11/14/2024 SPEC #: [id number] RECD: 11/14/24 10:24 STATUS: LOPEZ REBrian #: [id number] CARMEN: 11/14/24 08:[address]: Carmen,Ramón Bryan DEPT: [facility] Surgical RECD BY: Yamile Del Cid ENTERED: 11/14/24 10:24 SP TYPE: Surgical OTHR DR: Rafa Chavez DO Tissues: A - Bladder Biopsy B - Bladder Biopsy Procedures: Hematoxylin and Eosin Stain Gross and Microscopic Level 4
[2024-11-14] MEDS: LACTATED RINGERS 1,000 ML 30 ML IV CONT (08:17)
--- NOTE | 2024-11-14 08:23 | P.OP_ITS ---
Procedure Note - Detailed Date of Procedure 11/14/24 Pre-op Diagnosis bladder CA Post-op Diagnosis Same Procedure Performed Cystoscopy, bladder biopsy, fulguration Surgeon Ramón Morales MD Anesthesia General Description of Procedure Patient was taken to the operative suite correctly identified. Once anesthesia was obtained he was placed in dorsal lithotomy position and prepped and draped usual sterile fashion. His meatus was a little tightness we dilated up to 22 Iranian with male sounds. Twenty-two Iranian scope was then inserted. There were no other urethral strictures. Prostate was nonobstructive. Upon entering the bladder he has several areas of erythema. More prominent was on the floor with even a slight little papillary lesion. We biopsied this and then fulgurated the base. Second area of erythema was lateral to the right ureteral orifice. This was also biopsied and fulgurated. The tissue was very friable. Whether this is CIS or cystitis is difficult to determine at this time. Will see what pathology shows. Will empirically place on Macrobid for 3 weeks time. This completes dictation. Please send a copy of op note to my office Estimated Blood Loss 0 Drains No Packing No Pathology Yes Complications No immediate complications Condition Stable Disposition PACU
== END 2024-11-14 09:40 | disposition home or self-care (01) ==
PROVIDERS: PCP Internal Medicine; Visit Provider Urology
PROC: 0TBB8ZX Excision of Bladder, Via Natural or Artificial Opening Endoscopic, Diagnostic (ICD-10-PCS; CPT 52204; principal; 2024-11-14 07:30)
DX: C67.2 Malignant neoplasm of lateral wall of bladder (principal); C67.0 Malignant neoplasm of trigone of bladder; N35.911 Unspecified urethral stricture, male, meatal; Z87.891 Personal history of nicotine dependence; E11.40 Type 2 diabetes mellitus with diabetic neuropathy, unspecified; E66.9 Obesity, unspecified; Z68.39 Body mass index [BMI] 39.0-39.9, adult
CPT/HCPCS: 52204; 82948; 88305; J0690; J2003; J2371; J2405; J2704; J3010; J7120

== ENCOUNTER 2025-02-14 06:49 | Outpatient (CLI) | payer MEDICARE, SELFPAY ==
--- OUTSIDE RECORDS SUMMARY | 2009-12-12 06:00 | XMS_ITS | Continuity of Care Document ---
Author Organization [facility] Address [address] [facility] [address] [place] [address] Phone Care Team Providers Care Soundscriber Mechanic Name Role Phone Zaheer Tom Unavailable Unavailable [...] Diagnoses Date Provider Providers Copied on Encounter [facility], [address], [place], [place], [address], [place] tel:[phone] SEC [facility] No Information 0 Vaishali Schwab. [facility] [address], [address], [place]. tel:[phone] Referring Provider: Zaheer evans, [address] [address], [place], [address]. tel:[phone] [facility], [address], [place], [place], [address], [place] tel:[phone] [facility] [place] No Information 3-201 0 Krishnasamy Zaheer. [address] [place], [place] [address]ate [place] [address], [place], [facility], [place]. tel:[phone] [facility], [address], [place], [place], [address], [place] tel:[phone] SEC [facility] No Information 200 [address] [employer]. [address] [facility], [address], [place], [place], [address], [place]. tel:[phone] Referring Provider: Zaheer evans, [address] [place], [place] [address]ate [facility] 102, [place], [facility]. tel:[phone] sulting Provider: Leif Pineda, [address] [place] [address], [place], [facility]. tel:[phone] [facility], [address] [place] [address] [address], [place], [place], [address], [place] tel:[phone] [facility] No Information 9 Krishnasamy Zaheer. [address] [place], [place] [address]ate [facility] 102, [place], [facility], [place]. tel:[phone] Referring Provider: Zaheer evans, [address] [place], [place] [address]ate [facility] 102, [place], [facility]. tel:[phone] [facility], [address] [place] [address] [address], [place], [place], [address], [place] tel:[phone] [facility] [place] No Information 200 9 Krishnasamy Zaheer. [address] [place], [place] [address]ate [facility] 102, [place], [facility], [place]. tel:[phone] [facility], [address], [place], [place], [address], [place] tel:[phone] [facility] No Information 200 7 Juan Daniel Rios. [address] [facility], [address], [place], [place], [address], [place]. tel:[phone] Family History Family Member Type Diagnosis Age At Onset No Information Payers Payer name Insurance type Covered green party ID Authoriza tion(s) [place] [id number] Social History Type Description Quantity Date Captured [...]
--- OUTSIDE RECORDS SUMMARY | 2025-02-14 06:51 | XMS_ITS | Encounter Summary ---
Author Organization [facility] Address [address] [place] [address] Phone Care Team Providers Care Otr Owner Operator Truck Driver Name Role Phone Arnel Gonzalez MD Primary Care Provider [phone] Yfn Gill MD Unavailable Aguila Chris MD Unavailable [phone] Malcolm Castro MD Unavailable [phone] Neeraj La MD Unavailable [phone] Armand Howard RN Unavailable Unavaila August Hsu Primary Care Provider Miguel Torres DO Primary Care Provider [phone] Rafa Chavez DO Primary Care Provider Rafa Chavez DO Primary Care Provider Ramón Morales MD Unavailable [phone] Yfn Gill MD Unavailable [phone] Nabil Jacobs MD Unavailable Encounter Details Date [...] on file Legal Sex Male 1:58 AM END FRAZER Gender Identity Not on file Sexual Orientation [...] COVID: Suspected 05/05/2022 05/05/2022 05/05/2022 12:26 PM END FRAZER COVID: Suspected 05/05/2022 05/05/2022 05/05/2022 8:19 PM END FRAZER COVID: Suspected 03/19/2024 03/19/2024 03/19/2024 3:22 AM END FRAZER documented as of this encounter Care Teams Otr Owner Operator Truck Driver Relationship Specialty Start Date End Date Arnel Gonzalez MD [address] [address] PCP - General 07/19/13 07/05/23 August Triana PA [address] [address] PCP - General Physician Assistant Professor In Family Studies 07/06/23 01/16/24 Miguel Torres DO [address] [place] [address] PCP - General Internal Medicine 01/17/24 05/31/24 Rafa Chavez DO [address] [place] [address] [place] [address] PCP - General Internal Medicine 06/01/24 10/03/24 Rafa Chavez DO [address] [place] [address] [address] PCP - General Internal Medicine 10/04/24 Yfn Gill MD [address] [place] [address] [place] [address] Referring Physician Nephrology 01/22/22 10/03/24 Aguila Chris MD [facility] [address] [place] [address] Consulting Physician Cardiology 01/22/22 10/03/24 [place] [address] [address] Consulting Physician Endocrinology Diabetes & Metabolism 01/22/22 10/03/24 Neeraj La MD [address] [facility] [address] [facility] [address] [place] [address] Surgeon Vascular Surgery 01/30/22 10/03/24 Armand Howard, RN Registered Nurse 06/30/22 07/02/22 Ramón Morales MD [address] [place] [address] Consulting Physician Urology 10/04/24 Yfn Gill MD [address] [place] [address] Referring Physician Nephrology 10/04/24 Nabil Jacobs MD [address] [facility] [address] [place] [address] Consulting Physician Cardiology 10/04/24 documented as of this encounter
--- OUTSIDE RECORDS SUMMARY | 2025-02-14 06:51 | XMS_ITS | Clinical Summary ---
Author Organization [facility] Address [address] [place] [address] Care Team Providers Care Leather Goods Ii Assembler Name Role Phone Arnel Gonzalez Primary Care Provider [phone] Source Comments [facility] [place] [facility] Affiliates and Associated Physician Practices is amultiple site organization consisting of ambulatory clinics and hospital sitesin [place], [place], [place] and [place]. This disclosure is being madepursuant to the Care Everywhere program and may not contain all information available regarding this patient. Last updated 18.[facility] Allergies Active Allergy Reactions Criticality Noted Date [...] on file Legal Sex Male 5:50 AM TECHNICAL SUPPORT COORDINATOR Gender Identity Not on file Sexual Orientation Not on file Last Filed Vital Signs Vital Sign Reading Time Taken Comments Blood Pressure 136/70 05/05/2021 1:09 PM TECHNICAL SUPPORT COORDINATOR Pulse 76 05/05/2021 1:09 PM TECHNICAL SUPPORT COORDINATOR Temperature - - Respiratory Rate 14 05/05/2021 1:09 PM TECHNICAL SUPPORT COORDINATOR Oxygen Saturation 98% 05/05/2021 1:09 PM TECHNICAL SUPPORT COORDINATOR Inhaled Oxygen Concentration - - Weight 121.1 kg (267 lb) 05/05/2021 1:09 PM TECHNICAL SUPPORT COORDINATOR Height 172.7 cm (5' 8) 05/05/2021 1:09 PM TECHNICAL SUPPORT COORDINATOR Body Mass Index 40.6 05/05/2021 1:09 PM TECHNICAL SUPPORT COORDINATOR Plan of Treatment Health Maintenance Due Date Last Done Comments DTAP/TDAP/TD VACCINES (1 - Tdap) 11/26/1963 PNEUMOCOCCAL VACCINE 50+ (1 of 1 - PCV) 1994 ZOSTER VACCINE (1 of 2) 1994 Respiratory Syncytial Virus (RSV) Vaccine Pt: or over 60 yrs (1 - 1-dose 75+ series) 11/26/2019 DEPRESSION SCREENING 05/03/2024 COVID-19 VACCINE (1 - 2024-2 5 season) 2025 INFLUENZA VACCINE (#1) 2025 , 03/03/2020, 01/31/2019 [...] age to complete this topic Insurance [employer] SELF PAY NO INSURANCE Member Subscriber Plan / Payer (Ef fective for All Dates) Name:Gabriel Celeste Member ID:Not on file Relation to Subscriber:Not on file Name:GABRIEL CELESTE Subscriber ID:Not on file (Home) Address: [address] [place] [address] Payer ID:Not on file Group ID:Not on file Type:Self Pay Address: [place], [place] Care Teams Leather Goods Ii Assembler Relationship Specialty Start Date End Date Arnel Gonzalez DO [address] [facility] [address] [place] [address] PCP - General 01/03/21
--- OUTSIDE RECORDS SUMMARY | 2025-02-14 06:52 | XMS_ITS | Clinical Summary ---
Author Organization [facility] Address [address] [place] [address] Phone Care Team Providers Care Resaw Carriage Operator Name Role Phone Arnel Gonzalez DO Primary Care Provider [phone] Allergies Active Allergy Reactions Criticality Noted Date [...] 300 MG tablet 04/14/2020 Active Droplet Pen Metter 31G X 5 MM misc 07/28/2020 Active [...] 12/22/2021 Active ergocalciferol (VITAMIN D2) 1.25 MG (57856 UT) capsule TAKE ONE CAPSULE BY MOUTH [...] diabetes mellitus with complication Coronary arteriosclerosis in [place] artery 01/29 Overview (03/06/2019): CAD (coronary artery disease) Coronary artery disease involving [place] coronary artery of [place] heart without angina pectoris Coronary atherosclerosis 01/29/2015 Overview (08/30/2020): CAD (coronary artery disease) Coronary artery disease involving [place] coronary artery of [place] heart without angina pectoris H/O: artificial heart [...] PCV21) 01/31/2018 01/31/2017 COVID-19 Vaccine (2 - 2025-2 6 season) 2025 03/11/2021 Influenza Vaccine (#1) 2025 , 03/03/2020, 02/01/2020, Additional history exists Insurance MEDICARE ADVANTAGE Care Teams Resaw Carriage Operator Relationship Specialty Start Date End Date Arnel Gonzalez DO [address] [facility] [address] [place] [address] PCP - General Internal Medicine 01/31/19
--- OUTSIDE RECORDS SUMMARY | 2025-02-14 06:52 | XMS_ITS | Clinical Summary ---
Author Organization [facility] Address [address] [place] [address] Care Team Providers Care System Dispatcher Name Role Phone Rafa Chavez DO Primary Care Provider Ramón Morales MD Unavailable [phone] Yfn Gill MD Unavailable [phone] Nabil Jacobs MD Unavailable Allergies Active Allergy Reactions Criticality [...] 1 tablet (300 mg total) by mouth prison officer before breakfast 04/14/20 20 Active alpha lipoic [...] total) by mouth daily 06/19/19 24 Active potassium chloride ER (KLOR-CON) 20 mEq CR tablet Take 1 tablet (20 mEq total) by mouth with evening meal 7 tablet 1 03/20/20 24 Active HumuLIN R U-500 500 unit/mL (3 mL) CONCENTRATED pen for injectionIndicat ions:DM 2 Take two times a day. aB and aD up to 340 unit daily as instructed per SS. 60 mL 3 04/27/20 24 Active metoprolol XL (TOPROL-XL) 50 mg extended [...] FOR FLARES Active bumetanide (BUMEX) 2 mg tabletIndication s:Chronic heart failure with preserved ejection fraction Take 1 tablet (2 mg total) by mouth daily 90 tablet 2 07/14/19 25 Active tirzepatide (Mounjaro) 5 mg/0.5 mL pen injector injection Inject 0.5 mL (5 mg total) under the skin every 7 days 6 mL 3 10/06/19 25 Active amitriptyline (ELAVIL) 25 mg tabletIndication s:Type 2 diabetes mellitus with stage 3 chronic kidney disease, with long-term current use of insulin, unspecified whether stage 3a or 3b CKD (HCC) TAKE 1 TABLET EVERY NIGHT 90 tablet 1 11/16/19 25 Active clopidogreL (PLAVIX) 75 mg tablet TAKE 1 TABLET EVERY DAY 90 tablet 3 12/12/19 25 Active sacubitriL-valsa rtan (ENTRESTO) 49-51 mg tablet TAKE 1 TABLET TWICE DAILY 180 tablet 2 01/05/20 25 Active dapagliflozin propanediol (Farxiga) 10 mg tablet Active nystatin-triamci nolone cream 11/23/19 25 Active nitrofurantoin monohydrate (MACROBID) 100 mg capsule Take 1 capsule (100 mg total) by mouth 2 (two) times a day Active oxyCODONE (ROXICODONE) 5 mg immediate release tablet Take 1 tablet (5 mg total) by mouth 01/27/20 25 Active triamcinolone (KENALOG) 0.1 % cream Apply 1 application twice a day by topical route for 30 days, for dry skin. 08/08/19 25 Active potassium chloride ER 10 mEq CR tablet 12/26/19 25 Active semaglutide (Ozempic) 0.25 mg or 0.5 mg (2 mg/3 mL) pen injector injection 025 Discontin ued(Other ) Active Problems Problem Noted Date Diagnosed Date Cardiovascular stress test abnormal 02/24/2024 Benign paroxysmal positional vertigo of left ear 09/28/2023 Cervical myelopathy with cervical radiculopathy 06/30/2022 Cervical spondylosis with myelopathy 06/09/2022 Overview (06/09/2022): Added automatically from request for surgery [id number] Carotid stenosis, right 01/07/2022 Overview (01/07/2022): Added automatically from request for surgery [id number] Assessment & Plan (10/12/2024 9:34 AM CDT): Continues to do well status post right TKR. Asymptomatic moderate left ICA stenosis. Will have patient follow-up in 1 year with repeat bilateral carotid artery duplex. Assessment & Plan (04/19/2023 1:00 PM KNEE BOLTER): Status post TCAR. Stent patent. Continue anti-platelet therapy follow-up 6 months. Assessment & Plan (03/12/2022 5:16 PM KNEE BOLTER): Impression: Patient is status post right TCAR. [...] stent placement 11/28/2021 MARY on CPAP 04/29/2021 Type 2 diabetes mellitus wit h stage 3 chronic kidney disease, with long-term current use of insulin 01/15/2021 Chronic fatigue 01/15/2021 Vitamin D deficiency 09/02/2020 Hx of colonic polyp 02/05/2020 Overview (02/05/2020): Added automatically from request for surgery [id number] Hx of colonic polyps 10/10/2019 Overview (10/10/2019): Added automatically from request for surgery [id number] History of colon polyps 07/10/2019 Overview (07/10/2019): Added automatically from request for surgery [id number] Hypertension associated with diabetes 06/29/2019 Assessment & Plan (06/08/2024 2:36 PM KNEE BOLTER): Chronic problem, Controlled on metoprolol, Entresto, HCTZ, bumetanide, hydralazine, amlodipine. No changes. Assessment & Plan (04/19/2023 1:00 PM KNEE BOLTER): Hypertension chronic controlled. Continue current medical management [...] actual BMI) Coronary artery disease invo lving washoe coronary artery of washoe heart without angina pectoris 05/06/2015 Overview (08/07/2016): Coronary artery disease involving washoe coronary artery of washoe heart without angina pectoris Assessment & Plan (01/07/2022 3:00 PM CDT): Stable. Continue medical therapy. Mixed diabetic hyperlipidemi a associated with type 2 diabetes mellitus ([facility]) 05/06/2015 Overview (08/07/2016): Type 2 diabetes mellitus with complication Assessment & Plan (06/08/2024 2:36 PM KNEE BOLTER): Chronic problem. On statin therapy, no changes. Assessment & Plan (04/19/2023 1:00 PM KNEE BOLTER): Hyperlipidemia chronic and controlled. Continue current medical [...] complication Assessment & Plan (06/08/2024 2:37 PM KNEE BOLTER): Chronic problem, improving but not at goal. [...] week so we can look at his J.G. inke data and advise on changes to his [...] Encounters Date Type Department Care Team Description 02/05/2025 2:15 PM CDT Office Visit [facility] [id number] [place] [address] [address] [address] Joseph Brush MD Type 2 diabetes mellitus with stage 3 chronic kidney disease, with long-term current use of insulin, unspecified whether stage 3a or 3b CKD ([facility]) (Primary Dx); Obesity, class 3 (E66.813); Body mass index [BMI] 40.0-44.9, adult (Z68.41) 01/29/2025 Orders Only [facility] ([facility]) - [facility] U[facility] [address] [place] [address] [address] [place] [address] [place] [address] Stephie Trujillo MD Urinary frequency (Primary Dx) 01/09/2025 2:00 PM CDT Office Visit [facility] Surgery [address] [place] [address] [address] [place] [address] Malick Santos MD Nonrheumatic aortic valve stenosis (Primary Dx) 12/22/2024 2:09 PM CDT - 12/22/2024 11:59 PM CDT Hospital Encounter [facility] [id number] [place] [address] Urinary frequency Discharge Disposition: Discharge to home or self care 12/22/2024 11:40 AM CDT Office Visit [facility]) - [facility] Urology [address] [facility] [address] Medical Office [address] [place] [address] Stephie Trujillo MD Urinary frequency (Primary Dx) 12/14/[address] [facility] Pathology Outreach [address] [place] [address] Stephie Trujillo MD Malignant neoplasm of urinary bladder, unspecified site (HCC) 12/12/[address] [facility] ([facility]) - [facility] Urology [address] [place] [address] [place] [address] Stephie Trujillo MD Malignant neoplasm of urinary bladder, unspecified site (HCC) (Primary Dx) from Last 3 Months Immunizations Immunization Administration [...] Sleep apnea BiPap Type 2 diabetes mellitus IDDM HL (hearing loss) no aids CAD (coronary artery disease) Osteoarthritis GERD (gastroesophageal reflu x disease) PPI and occ Tums Anemia no iron, injecti ons or h/o blood transfusion Blindness left eye blindness CHF (congestive heart failur e) (HCC) Pneumonia 10/21/2021 hospitalized [facility] with PNA, JUANITA and CHF Cancer (HCC) [...] Chronic Pain Mother Cyndie Cicio Diabetes Mother Cydnie Cicio Heart attack Mother Cyndie Cicio Heart disease Mother Cyndie Cicio Hypertension Mother Cyndie Cicio Chronic Pain Other Cancer Sister 1 Veda Diabetes Sister 1 Veda Lung cancer Sister 2 Cancer, lung; C ause of : Cancer, lung Relation Name Status Comments Rocioer Addi Father Maged Aguilar (Age 59) Mother [...] on file Legal Sex Male 1:58 AM KNEE BOLTER Gender Identity Not on file Sexual Orientation Not on file Obstetrics History Last Filed Vital Signs Vital Sign Reading Time Taken Comments Blood Pressure 118/70 02/05/2025 2:21 PM CDT Pulse 72 02/05/2025 2:21 PM CDT Temperature 36.7 C (98 F) 04/17/2024 7:04 AM KNEE BOLTER Respiratory Rate 20 02/05/2025 2:21 PM CDT Oxygen Saturation 93% 01/09/2025 3:29 PM CDT Inhaled Oxygen Concentration - - Weight 127.9 kg (282 lb) 02/05/2025 2:21 PM CDT Height 172.7 cm (5' 7.99) 02/05/2025 2:21 PM CD T Body Mass Index 42.89 02/05/2025 2:21 PM CDT Plan of Treatment Health Maintenance Due Date Last Done Comments Depression Screening 1945 Dilated Eye Exam 1945 Foot Exam 1945 DTaP/Tdap/Td Vaccine (1 - Tdap) 11/26/1955 Hepatitis B Screening 1962 Abdominal Aortic Aneurysm (A AA) Screen 2009 Well Visit 65+ 2009 Pneumococcal vaccine 65+ (2 of 2 - PPSV23, PCV20, or PCV21) 03/28/2017 01/31/2017 Covid-19 Vaccine (5 - 2024-2 6 season) 2025 02/24/2022, 03/11/2021, 07/23/2020, Additional history exists Influenza Vaccine (#1) 2025 3, 03/11/2023, 02/24/2022, Additional history exists Fall Risk Assessment 04/17/2025 04/17/2024 eGFR 05/31/2025 05/31/2024, 03/03, 09/15/2023, Additional history exists Albumin Creatinine Ratio, Urine 06/08/2025 Lipid Panel 06/08/2025 06/08/2024, 06/03, 06/30/2022, Additional history exists Hemoglobin A1C 08/06/2025 02/05/2025, 0210/2024, 09/22/2023, Additional history exists Colon Cancer Screening-CT Colonography Discontinued 05/18/2014 Colon Cancer Screening-Colonoscopy Discontinued 05/18/2014 Colon Cancer Screening-DNA Stool Discontinued 05/18/19 Colon Cancer Screening-FIT Discontinued 05/18/2014 Colon Cancer Screening-FOBT Discontinued 05/18/2014 Colon Cancer Screening-Sigmoidoscopy Discontinued 05/18/2014 Colorectal Cancer Screening Discontinued Zoster Vaccine Completed 05/07/2021, 02/18/2021 Goals Goal Patient Goal Type Associated Problems Recent Progress Patient-Stated? Author CCM Chronic Pain Care Plan Chronic Care Management No change(04/14 11:08 AM KNEE BOLTER) No Pool Frey, RN Note: Problem: Chronic Pain Goals: 1. Minimize further functional decline 2. Maximize quality of life 3. Control pain Strategies: - Activity/exercise program recommendation - Conservative stepwise pain medicine strategy with multi-disciplinary approach - Recommend healthy lifestyle strategies and compensatory methods as needed Medical Devices Implanted Type Area Assembler Dielectric Heater Device Identifier Shelf Expiration Date Model / Serial / Lot Total Knee Left: Knee Medtronic Inc Resolute Ian 3mm 2.1-2.7fr 12mm 140cm Rapid Exchange Radiopaque [id number] - [id number] Implanted:Qty: 1 on 09/03/2021 by Bindu Goins MD at [facility] Med[employer]onic Inc 06/11/2024 [id number] / / Medtronic Inc Resolute Burkburnett 3.5mm 2.1-2.7fr 15mm 140cm Rapid Exchange [id number] - [id number] Implanted:Qty: 1 on 09/03/2021 by Bindu Goins MD at [facility] [employer] Inc 04/04/2024 [id number] / / Angio-Seal Vip 6fr Closere Device [id number] - [id number] Implanted:Qty: 1 on 09/03/2021 by Bindu Goins MD at [facility] [employer] Miya 06/02/2022 [id number] / / Stronghold [employer] Enroute Uber Flex 8mm .065in 40mm 57cm Delivery System Angle Tip [id number]-[id number] - [id number] Implanted:Qty: 1 on 01/29/2022 by Neeraj La MD at [facility] Right: Carotid [employer] 08/30/2024 [id number]-0840- CS / / [id number] Matilde Biomet Inc 4.5mm 16mm Fix Screw Bone 14-900014 - [id number] Implanted:Qty: 3 on 06/30/2022 by Fredy Nguyen MD at [facility] N/A: Spine Cervical MATILDE BIOMET SPINE INC [id number] 6 / / Musculoskeletal Transplant 12.2k14p0no Frozen Spine 7d Lordotic Trapezoid Spacer Allograft 262400 - [id number] - [id number] Implanted:Qty: 1 on 06/30/2022 by Fredy Nguyen MD at [facility] N/A: Spine Cervical Musculoskeletal Transplant [id number] 03/25/2025 [id number] / [id number] / Musculoskeletal Transplant 12.5p87q8bi Frozen Spine 7d Lordotic Trapezoid Spacer Allograft 317303 - [id number] - [id number] Implanted:Qty: 1 on 06/30/2022 by Fredy Nguyen MD at [facility] N/A: Spine Cervical Musculoskeletal Transplant [id number] 01/03/2025 [id number] / [id number] / Musculoskeletal Transplant 12.9l35x0bs Frozen Spine 7d Lordotic Trapezoid Spacer Allograft 613848 - [id number] - [id number] Implanted:Qty: 1 on 06/30/2022 by Fredy gNuyen MD at [facility] N/A: Spine Cervical Musculoskeletal Transplant [id number] 04/26/2026 [id number] / [id number] / [employer] Inc C-Ervin Maxan 51mm Level 3 Fix Spine Cervical Anterior Plate Bone [id number] - [id number] Implanted:Qty: 1 on 06/30/2022 by Fredy Nguyen MD at [facility] N/A: Spine Cervical MATILDE [employer] SP[employer] [id number] 1 / / Matilde [employer]omet Inc 4mm 16mm Fix Screw Bone 14-055532 - [id number] Implanted:Qty: 5 on 06/30/2022 by Fredy Nguyen MD at [facility] N/A: Spine Cervical MATILDE [employer] SP[employer] INC [id number] 6 / / Access Closure Inc Device 10ml 5fr Closure Mynx Control 2 Mode Balloon Catheter [id number] - [id number] Implanted:Qty: 1 on 03/27/2024 by Nabil Jacobs MD at [facility] Access [employer] Inc 01/18/2026 [id number] / / [id number] Medtronic Card Vasc Surgery 4.0 X 18mm Ian Bates Rx Coronary Stent [id number] - [id number] Implanted:Qty: 1 on 04/17/2024 by Nabil Jacobs MD at [facility] Medtronic Card Vasc Surgery 12/26/2026 [id number] / / [id number] Access Closure Inc Mynx Control 6-7fr 2 Mode Balloon Catheter Sealant Lock Syringe [id number] - [id number] Implanted:Qty: 1 on 04/17/2024 by Nabil Jacobs MD at [facility] [employer] 01/05/2026 [id number] / / [id number] Procedures Procedure Name Priority Date/Time Associated Diagnosis Comments POCT HEMOGLOBIN A1C Routine 02/05/2025 2 :21 PM CDT Type 2 diabetes mellitus with stage 3 chronic kidney disease, with long-term current use of insulin, unspecified whether stage 3a or 3b CKD (HCC) POCT GLUCOSE Routine 02/05/2025 2:21 PM CDT Type 2 diabetes mellitus with stage 3 chronic kidney disease, with long-term current use of insulin, unspecified whether stage 3a or 3b CKD (HCC) URINE CULTURE Routine 12/22/2024 2:09 PM CDT Urinary frequency SURGICAL PATHOLOGY Routine 12/14/2024 9: 11 AM CDT Malignant neoplasm of urinary bladder, unspecified site (HCC) ALBUMIN CREATININE RATIO, URINE Routine 06/08/2024 1:18 PM KNEE BOLTER Type 2 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 disease, with long-term current use of insulin (HCC) POCT LIPID PANEL Routine 06/08/2024 1:18 AM KNEE BOLTER Type 2 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 disease, with long-term current use of insulin (HCC) HM CREATININE Routine 05/31/2024 12:52 PM KNEE BOLTER COLONOSCOPY REPORT 05/18/2014 from Last 3 Months or Most Recently Relevant to Health Maintenance Results * (ABNORMAL) POCT hemoglobin A1c (02/05/2025 2:21 PM CDT) Hemoglobin A1C, POC 7.7(A) 4.0 - 5.6 % Blood 02/05/2025 2:21 PM CDT us Joseph Brush MD POINT OF CARE TEST ORDERABLES Fi nal Result * (ABNORMAL) POCT glucose (02/05/2025 2:21 PM CDT) Glucose Blood, POC 249 Normal Fasting 70 - 100, Random <200 mg/dL Blood 02/05/2025 2:21 PM CDT us Joseph Brush MD POINT OF CARE TEST ORDERABLES Fi nal Result * Urine culture Urine, clean voided (12/22/2024 2:09 PM CDT) Report Final Report: Less than 100,000 colonies/mL (clinically insignificant growth based on current clinical standards) Comment:Testing performed by : [facility], [address] [place]., [address] Organism (CLINICALLY INSIGNIFICANT GROWTH [facility] Urine, clean voided 12/22/2024 2:09 PM CDT 12/23/2024 12:21 AM CDT Narrative [facility] - 12/24/2024 6:15 AM CDT Testing performed by [facility] Microbiology Laboratory ([phone]) us Stephie Trujillo MD LAB MICROBIOLOGY - GENERAL ORDER MIKE Final Result [facility] [address] Department [place] [address] * Surgical pathology (12/14/2024 9:11 AM CDT) Tissue (Miscellaneous) 12/14/2024 9:11 AM CDT 12/14/2024 9:[address] [facility] - 12/15/2024 1:32 PM CDT EPIC results best viewed via link to PDF [facility] Pathology Consult Service [address], [place] [address] Note to Patients: This report may contain a detailed description of human tissue sent by a health care provider to the laboratory for pathologic evaluation. The content of this report is essential for diagnosis and may provide important critical findings. This information may be unfamiliar to patients to review without a medical professional present. It is advised that the patient review this report in the presence of a health care provider who can answer questions and explain the details. SURGICAL PATHOLOGY REPORT * Consult Report * [facility] is providing an additional review of previously collected tissue. FINAL Patient Name: TAMIKA AGUILAR Address: [facility] [address], [place] [address] Gender: M : 1945 (Age: 79) [facility] #: [id number] Patient Type: [facility] Location: UNKNOWN Taken: 12/14/2024 Received: 12/14/2024 Accessioned: 12/14/2024 Reported: 12/15/2024 Physician(s): Stephie Trujillo M.D. [facility] Department of Pathology [address] [place] [address] P: [phone] F: [phone] Diagnosis: Consult material received from [place], [place] (OSC: [id number]; 11/14/2024) A. Bladder, right lateral wall, biopsy - Papillary urothelial carcinoma, low grade - No invasion identified - Muscularis propria not present B. Bladder, floor, biopsy - Papillary urothelial carcinoma, low grade - No invasion identified - Muscularis propria not present gugo/12/14/2024 18:11 By this signature, I attest that the above diagnosis is based upon my personal examination of the slides(and/or other material indicated in the diagnosis). Brandon James M.D. Report Electronically Reviewed and Signed Out By Brandon James M.D. 12/15/2024 13:32:55 Microscopic Description and Comment: Unless gross-only is specified, the final diagnosis for each specimen is based on a microscopic examination of each tissue sample. Eliud Harris M.D. History: The patient is an 79-year-old man with history of a bladder lesion. Materials Received: Received for review are three slides labeled [id number], accompanied by a corresponding pathology report. The material originates from [place], [place]. Selected slide(s) may be digitally scanned for our files, and all materials are returned to the referring institution, along with a copy of our final report. Any testing required for diagnostic purposes was performed in the Department of Pathology and Immunology at [facility], [address] [place] [address], [place] [address] CLIA # [id number] The performance characteristics of the testing cited in this report (if any) were determined by the [facility] Department of Pathology and Immunology [facility], as part of an ongoing quality assurance monitor final program and in compliance with federally mandated regulations drawn from the Clinical Laboratory Improvement Act of 1988 (CLIA '88). Some of these tests rely on the use of analyte specific reagents (ASR) and are subject to specific labeling requirements by the US Food and Drug Administration. Such diagnostic tests may only be performed in a facility that is certified by the Department of Health and Human Services as a high complexity laboratory under CLIA '88. The FDA has determined that such clearance or approval is not necessary. ASRs should not be regarded as investigational or for research. ASRs were developed and the performance characteristics determined by the [facility], [facility] Department of Pathology and Immunology. It has not been cleared or approved by the U.S. Food and Drug Administration. Any test designated as LDT was developed and its performance characteristics determined by [facility]. It has not been cleared or approved by the FDA. This test is used for clinical purposes and should not be regarded as investigational or for research. Report images and/or scanned reports, if included, only viewable in PDF version of report. Stephie Trujillo MD LAB PATHOLOGY ORDERABLES Final R esult Performing Organization Address City/[facility]/ZIP Co de Phone Number [facility] [address] [place] [address] * (ABNORMAL) Albumin Creatinine Ratio, Urine (06/08/2024 1:18 PM KNEE BOLTER) Albumin Ur 68.0 mg/L Comment: Interpretive Data No reference range established. Current interpretive data was last revised 2018. Creatinine Ur 32.5 mg/dL JOSE MIGUEL BOWERS Comment: Interpretive Data No reference range established. Current interpretive data was last revised 2018. Albumin Creatinine Ratio, Ur 209(H) 1 - 29 mg/g JOSE MIGUEL BOWERS Urine 06/08/2024 1:18 PM KNEE BOLTER 06/08/2024 7:31 PM KNEE BOLTER [facility] LAB URINE ORDERABLES Fi nal Result Performing Organization Address City/[facility]/ZIP Co de Phone Number [facility] [address] Department [place] [address] * (ABNORMAL) POCT lipid panel (06/08/2024 1:18 AM KNEE BOLTER) Cholesterol, POC 154 mg/dL HDL, POC 25 mg/dL Triglycerides, POC 271 mg/dL LDL Cholesterol POC 75 mg/dL Chol/HDL Ratio, POC 6.2 Non-HDL Cholesterol, POC 129 mg/dL Cholesterol Total, POC 154 mg/dL Capillary blood 06/08/2024 1 :18 AM KNEE BOLTER Terra CRUZ POINT OF CARE TEST ORDE LULÚ Final Result * (ABNORMAL) HM CREATININE (05/31/2024 12:52 PM KNEE BOLTER) SCRIBED Creatinine 2.16(A) 0.7 - 1.3 mg/dl EXTERNAL LAB SCRIBED eGFR 30 >59 - NA EXTERNAL LAB Blood 05/31/2024 12:5 2 PM KNEE BOLTER Historical Provider HEALTH MAINTENANCE Edited Result - Final EXTERNAL LAB * COLONOSCOPY REPORT (05/18/2014) Anatomical Region Laterality Modality Other Narrative 05/18/2014 Ordered by an unspecified provider. Historical Provider GI PROCEDURE ORDERABLES F inal Result from Last 3 Months or Most Recently Relevant to Health Maintenance Insurance [facility] [employer] MEDICARE PPO [employer] CHOICE MEDICARE PPO Advance Directives For more information, please contact: [phone] * Full Code (Latest Code Status on File) Date Activated Date Inactivated Comments 06/30/2022 6:44 PM 07/03/2022 5:32 PM * Full Code Date Activated Date Inactivated Comments 06/30/2022 6:39 PM 06/30/2022 6:44 PM * Full Code Date Activated Date Inactivated Comments 01/29/2022 2:14 PM 01/30/2022 6:06 PM * Full Code Date Activated Date Inactivated Comments 09/03/2021 12:10 PM 09/04/2021 7:37 PM Care Teams System Dispatcher Relationship Specialty Start Date End Date Rafa Chavez DO PCP - General Internal Medicine 10/04/24 Ramón Morales MD [address] [place] [address] Consulting Physician Urology 10/04/24 Yfn Gill MD [address] [facility] [address] [place] [address] Referring Physician Nephrology 10/04/24 Nabil Jacobs MD [address] [facility] [address] [place] [address] Consulting Physician Cardiology 10/04/24
--- OUTSIDE RECORDS SUMMARY | 2025-02-14 06:52 | XMS_ITS | Clinical Summary ---
Author Organization [facility] Address [address] [place] [address] Care Team Providers Care Head Esthetician Name Role Phone Arnel Gonzalez MD Primary Care Provider [phone] Allergies Active Allergy Reactions Criticality Noted Date [...] by mouth nightly at bedtime. 11/10/2022 Active semaglutide (OZEMPIC) 2 MG/3ML injection (PEN) Inject 0.25 mg into the skin. 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 PROFESSIONAL Gender Identity Not on file Sexual Orientation Not on file Last Filed Vital Signs Vital Sign Reading Time Taken Comments Blood Pressure 138/67 10/12/2023 3:33 PM CDT Pulse 85 10/12/2023 3:33 PM CDT Temperature 37.1 C (98.7 F) 10/12/2023 3:33 PM CDT Respiratory Rate 18 06/22/2023 12:59 PM ACQUISITION PROFESSIONAL Oxygen Saturation 96% 10/12/2023 3:33 PM CDT Inhaled Oxygen Concentration - - Weight 124.3 kg (274 lb) 10/12/2023 3:33 PM CDT Height 172.7 cm (5' 8) 10/12/2023 3:33 PM CDT Body Mass Index 41.66 10/12/2023 3:33 PM CDT Plan of Treatment Health Maintenance Due Date Last Done Comments DTaP, Tdap and Td Vaccines (1 - Tdap) 11/26/1964 Annual Medicare Wellness Visit 2009 Pneumococcal Vaccine: 50+ Years (2 of 2 - PCV20 or PCV21) 01/31/2018 01/31/2017 RSV Immunization or 60+ Years (1 - 1-dose 75+ series) 11/26/2019 PHQ-2 (Physician [place]) 05/03/2024 10/12/2023 COVID-19 Vaccine ( season) 2025 02/24/2022, 03/11/2021, 07/23/2020, Additional history exists Influenza Adult (#1) 2025 03/11/2023, 02/24/2022, 02/27/2021, Additional history exists Zoster Vaccines Completed 05/07/2021, 02/18/2021 Hepatitis A Vaccines Aged Out No long er eligible based on patient's age to complete this topic Meningococcal B Vaccine Aged Out No l onger eligible based on patient's age to complete this topic Meningococcal Vaccine Aged Out No jorge kelsi eligible based on patient's age to complete this topic RSV Immunizations Under 20 Months Aged Out No longer eligible based on patient's age to complete this topic Insurance [facility] MEDICARE Care Teams Head Esthetician Relationship Specialty Start Date End Date Arnel Gonzalez MD [address] [place] [address] PCP - General INTERNAL MEDICINE 06/22/23
[2025-02-14 08:50] LABS: Hematocrit 36.5 % (42.0-52.0); Hemoglobin 12.4 g/dL (14.0-18.0); Mean Corpuscular HGB Conc 34.0 g/dl (32-36); Mean Corpuscular Hemoglobin 30.2 pg (26-34); Mean Corpuscular Volume 88.8 fl (80-100); Platelet Count Result 188 k/mm3 (150-375); Red Blood Count 4.11 M/mm3 (4.6-6.20); White Blood Count 6.9 K/mm3 (4.5-10.0)
[2025-02-14 08:57] LABS: Add Urine Microscopic? YES; Appearance Urine Cloudy (Clear); Broad Cast Urine Present; Glucose Urine UA Negative (Negative); Leukocyte Esterase Ur 3+ LEU/UL (Negative); Nitrate Urine Negative (Negative); Specific Grav Ur 1.014 (1.001-1.035)
[2025-02-14 09:22] LABS: Alanine Aminotransferase 33 U/L (6-50); Albumin Level 4.3 g/dL (3.5-5.1); Alkaline Phosphatase 77 U/L (38-126); Anion Gap 11 mmol/L (4-12); Aspartate Amino Transferase 41 U/L (17-59); Bilirubin,Total 0.6 mg/dL (0.2-1.3); Blood Urea Nitrogen 47 mg/dL (9-20); Calcium 9.6 mg/dL (8.4-10.2); Carbon Dioxide 30 mmol/L (22-30); Chloride 96 mmol/L (98-107); Estimated Glomerular Filt Rate 25; Glucose 143 mg/dL (65-110); Magnesium 2.4 mg/dL (1.6-2.3); Potassium 3.1 mmol/L (3.4-5.0); Sodium 137 mmol/L (137-145); Total Protein 7.1 g/dL (6.3-8.2)
[2025-02-14 09:29] LABS: Parathyroid Intact 99.0 pg/mL (14.5-75.2)
[2025-02-14 09:46] LABS: Hemoglobin A1C 7.0 % (<5.7)
[2025-02-14 11:24] LABS: Total Protein Urine Random 30 mg/dL; Ur Ttl Prot Creatinine Ratio 0.20 mg/mg (0-0.20)
== END 2025-02-14 06:50 | disposition home or self-care (01) ==
LOC: ANHLAB 06:50
PROVIDERS: PCP Internal Medicine; Referring Provider Internal Medicine; Visit Provider Internal Medicine Nephrology
DX: I12.9 Hypertensive chronic kidney disease with stage 1 through stage 4 chronic kidney disease, or unspecified chronic kidney disease (principal); E11.22 Type 2 diabetes mellitus with diabetic chronic kidney disease; N18.32 Chronic kidney disease, stage 3b; Z79.4 Long term (current) use of insulin; R80.9 Proteinuria, unspecified; E83.51 Hypocalcemia
CPT/HCPCS: 36415; 80053; 81001; 82306; 82570; 83036; 83735; 83970; 84100; 84156; 85027

== ENCOUNTER 2025-03-12 10:28 | Outpatient (CLI) | payer MEDICARE, SELFPAY ==
--- OUTSIDE RECORDS SUMMARY | 2009-12-12 05:00 | XMS_ITS | Continuity of Care Document ---
Author Organization [facility] Address [address] [facility] [address] [place] [address] Phone Care Team Providers Care Biological Aide Name Role Phone Zaheer Tom Unavailable Unavailable Procedures Procedure Date Visual Field Examination(s) Eye Exam & Treatment Refraction Progressive Lens, Plastic Frames Deluxe Tint Photochromatic, Plastic Tax - Medical Visual Field Examination(s) Eye Exam & Treatment Refraction Eye Exam & Treatment Advance Directives Directive Yes / No Effective Date File Name No Information Encounters Encounter Description Practice Location Reason(s) For Visit Diagnoses Date Provider Providers Copied on Encounter [facility], [address], [place], [place], [id number], [place] tel:[phone] SEC [facility] No Information 0 Vaishali Schwab. [facility] [address], [address], [place]. tel:[phone] Referring Provider: Zaheer evans, [address] [address], [place], [address]. tel:[phone] [facility], [address], [place], [place], [id number], [place] tel:[phone] [facility] No Information 3-201 0 Krishnasamy Zaheer. [address] [place], [place] [address]ate [place] [address], [place], [place], [facility] [place], [place]. tel:[phone] [facility], [address], [place], [place], [address], [place] tel:[phone] [facility] No Information [address] [employer]. [address] [facility], [address], [place], [place], [address], [place]. tel:[phone] Referring Provider: Zaheer evans, [address] [place], [place] [address]ate [facility], [place], [facility], [facility]. tel:[phone] sulting Provider: Leif Pineda, [address] [place] [address], [place], [facility]. tel:[phone] [facility], [address] [place] [address] [address], [place], [place], [address], [place] tel:[phone] [facility] No Information 9 Krishnasamy Zaheer. [address] [place], [place] [address]ate [facility] 102, [place], [facility], [place], [place]. tel:[phone] Referring Provider: Zaheer evans, [address] [place], [place] [address]ate [facility] 102, [place], [facility], [facility] [place]. tel:[phone] [facility], [address] [place] [address] [address], [place], [place], [address], [place] tel:[phone] [facility] [place] No Information 200 9 Krishnasamy Zaheer. [address] [place], [place] [address]ate [facility] 102, [place], [facility], [place], [place]. tel:[phone] [facility], [address], [place], [place], [address], [place] tel:[phone] [facility] No Information 200 7 Juan Daniel Rios. [address] [facility], [address], [place], [place], [address], [place]. tel:[phone] Family History Family Member Type Diagnosis Age At Onset No Information Payers Payer name Insurance type Covered democrat ID Authoriza tion(s) [place] [id number] Social History Type Description Quantity Date Captured Comments Sex Male Smoking Status No Information Chief Complaint And Reason For Visit No Information Reason For Referral Reason For Referral No Information History Of Present Illness Encounter Date Complaint History Of Prese nt Illness No Information Functional Status Date Functional Assessmen t No Information Instructions Date Instruction Additional Infor mation No Information Assessments Type Assessment Date No Information Patient Care Teams Name Effective Dates (start - stop) Status Members No Information
--- OUTSIDE RECORDS SUMMARY | 2025-03-12 11:17 | XMS_ITS | Clinical Summary ---
Author Organization [facility] Address [address] [facility] [place] [address] Care Team Providers Care Wildlife Removal Specialist Name Role Phone SabrinaArnel barbour Primary Care Provider [phone] Source Comments [facility],non-[facility] Affiliates and Associated Physician Practices is amultiple site organization consisting of ambulatory clinics and hospital sitesin [place], [place], [place] and [place]. This disclosure is being madepursuant to the Care Everywhere program and may not contain all information available regarding this patient. Last updated 18.[facility] Allergies Active Allergy Reactions Criticality Noted Date [...] on file Legal Sex Male 5:50 AM PEDIATRIC PHYSICIAN ASSISTANT Gender Identity Not on file Sexual Orientation Not on file Last Filed Vital Signs Vital Sign Reading Time Taken Comments Blood Pressure 136/70 05/05/2021 1:09 PM PEDIATRIC PHYSICIAN ASSISTANT Pulse 76 05/05/2021 1:09 PM PEDIATRIC PHYSICIAN ASSISTANT Temperature - - Respiratory Rate 14 05/05/2021 1:09 PM PEDIATRIC PHYSICIAN ASSISTANT Oxygen Saturation 98% 05/05/2021 1:09 PM PEDIATRIC PHYSICIAN ASSISTANT Inhaled Oxygen Concentration - - Weight 121.1 kg (267 lb) 05/05/2021 1:09 PM PEDIATRIC PHYSICIAN ASSISTANT Height 172.7 cm (5' 8) 05/05/2021 1:09 PM PEDIATRIC PHYSICIAN ASSISTANT Body Mass Index 40.6 05/05/2021 1:09 PM PEDIATRIC PHYSICIAN ASSISTANT Plan of Treatment Health Maintenance Due Date [...] on file (Home) Address: [address] [place] [address] Payer ID:Not on file Group ID:Not on file Type:Self Pay Address: [place], [place] Care Teams Wildlife Removal Specialist Relationship Specialty Start Date End Date Arnel Gonzalez DO [address] [place] [address] PCP - General 01/03/21
--- OUTSIDE RECORDS SUMMARY | 2025-03-12 11:18 | XMS_ITS | Encounter Summary ---
Author Organization [facility] Address [address] [place] [address] Phone Care Team Providers Care Physician'S Aide Name Role Phone Arnel Gonzalez MD Primary Care Provider [phone]- [phone] Yfn Gill MD Unavailable [phone] Aguial Chris MD Unavailable [phone] Malcolm Castro MD Unavailable [phone] Neeraj La MD Unavailable [phone] Armand Howard RN Unavailable Unavaila August Hsu Primary Care Provider Miguel Torres DO Primary Care Provider [phone] Rafa Chavez DO Primary Care Provider [phone] Rafa Chavez DO Primary Care Provider + [phone] Ramón Morales MD Unavailable [phone] Yfn Gill MD Unavailable [phone] Nabil Jacobs MD Unavailable Encounter Details Date [...] on file Legal 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 Male 1:58 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 Gender Identity Not on file Sexual [...] COVID: Suspected 05/05/2022 05/05/2022 05/05/2022 12:26 PM RESTAURANT OPERATIONS MANAGER COVID: Suspected 05/05/2022 05/05/2022 05/05/2022 8:19 PM RESTAURANT OPERATIONS MANAGER COVID: Suspected 03/19/2024 03/19/2024 03/19/2024 3:22 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 documented as of this encounter Care Teams Physician'S Aide Relationship Specialty Start Date End Date Arnel Gonzalez MD [address] [address] PCP - General 07/19/13 07/05/23 August Triana PA [address] [address] PCP - General Physician Band Saw Runner 07/06/23 01/16/24 Miguel Torres DO [address] [place] [address] PCP - General Internal Medicine 01/17/24 05/31/24 Rafa Chavez DO [address] [place] [address] [place] [address] PCP - General Internal Medicine 06/01/24 10/03/24 Rafa Chavez DO [address] [place] [address] [address] PCP - General Internal Medicine 10/04/24 Yfn Gill MD [address] [place] [address] Referring Physician Nephrology 01/22/22 10/03/24 Aguila Chris MD [address] [place] [address] [place] [address] Consulting Physician Cardiology 01/22/22 10/03/24 [place] [id number] [address] Consulting Physician Endocrinology Diabetes & Metabolism 01/22/22 10/03/24 Neeraj La MD [address] [facility] [address] [facility] [address] [place] [address] Surgeon Vascular Surgery 01/30/22 10/03/24 Armand Howard, RN Registered Nurse 06/30/22 07/02/22 Ramón Morales MD [address] [place] [address] [place] [address] Consulting Physician Urology 10/04/24 Yfn Gill MD [address] [facility] [address] [place] [address] Referring Physician Nephrology 10/04/24 Nabil Jacobs MD [address] [facility] [address] [place] [address] Consulting Physician Cardiology 10/04/24 documented as of this encounter
--- OUTSIDE RECORDS SUMMARY | 2025-03-12 11:18 | XMS_ITS | Clinical Summary ---
Author Organization [facility] Address [address] [place] [address] Care Team Providers Care Bench Assembly Inspector Name Role Phone Arnel Gonzalez MD Primary Care Provider [phone] Allergies Active Allergy Reactions Criticality Noted Date [...] on file Legal Sex Male 12:11 PM SENIOR GEOLOGIST Gender Identity Not on file Sexual Orientation Not on file Last Filed Vital Signs Vital Sign Reading Time Taken Comments Blood Pressure 138/67 10/12/2023 3:33 PM CDT Pulse 85 10/12/2023 3:33 PM CDT Temperature 37.1 C (98.7 F) 10/12/2023 3:33 PM CDT Respiratory Rate 18 06/22/2023 12:59 PM SENIOR GEOLOGIST Oxygen Saturation 96% 10/12/2023 3:33 PM CDT [...] - 1-dose 75+ series) 11/26/2019 PHQ-2 (Physician [place]) 05/03/2024 10/12/2023 COVID-19 Vaccine ( season) 2025 [...] patient's age to complete this topic Insurance [facility] MEDICARE Care Teams Bench Assembly Inspector Relationship Specialty Start Date End Date Arnel Gonzalez MD [address] [place] [address] PCP - General INTERNAL MEDICINE 06/22/23
--- OUTSIDE RECORDS SUMMARY | 2025-03-12 11:18 | XMS_ITS | Clinical Summary ---
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 04/14/20 20 Active alpha lipoic acid 600 mg tabletIndicatio ns:pain Take 1 tablet by mouth nightly Active Accu-Chek Mariel Plus test strp strip 07/16/19 22 Active Accu-Chek Softclix Lancets lancets 07/16/19 22 Active Droplet Pen Needle 31 gauge x /16 needle 07/16/19 22 Active multivitamin tabletIndicatio ns:Vitamin [...] EARS TWICE DAILY NEEDED FOR FLARES Active tirzepatide (Mounjaro) 5 mg/0.5 mL pen injector injection Inject 0.5 mL (5 mg total) under the skin every 7 days 6 mL 3 10/06/19 25 Active amitriptyline (ELAVIL) 25 mg tabletIndicatio ns:Type 2 diabetes mellitus with stage 3 chronic kidney disease, with long-term current use of insulin, unspecified whether stage 3a or 3b CKD (HCC) TAKE 1 TABLET EVERY NIGHT 90 tablet 1 11/16/19 25 Active clopidogreL (PLAVIX) 75 mg tablet TAKE 1 TABLET EVERY DAY 90 tablet 3 12/12/19 25 Active sacubitriL-vals ivet (ENTRESTO) 49-51 mg tablet TAKE 1 TABLET TWICE DAILY 180 tablet 2 01/05/20 25 Active dapagliflozin propanediol (Farxiga) 10 mg tablet Active nystatin-triamc inolone cream 11/23/19 25 Active nitrofurantoin monohydrate (MACROBID) [...] 10 mEq CR tablet 12/26/19 25 Active bumetanide (BUMEX) 2 mg tabletIndicatio ns:Chronic heart failure with preserved ejection fraction TAKE 1 TABLET EVERY DAY 90 tablet 02/27/20 25 Active bumetanide (BUMEX) 2 mg tabletIndicatio ns:Chronic heart failure with preserved ejection fraction Take 1 tablet (2 mg total) by mouth daily 90 tablet 2 07/14/19 25 025 Discontinued Hospital, Clinic, or Other Facility Administered Medication Ordered Dose Route Frequency Start Date End Date Status lidocaine (XYLOCAINE) 10 mg/mL (1 %) injection 1 mLIndications:Admi nistration of Local Anesthesia 1 mL One-Time Injection 02/21/2025 02/21/2025 Ended triamcinolone (KENALOG) 40 mg/mL injection 40 mgIndications:CMC arthritis 40 mg intra-artic One-Time Injection 02/21/2025 02/21/2025 Ended Active Problems Problem Noted Date Diagnosed Date Cardiovascular stress test abnormal 02/24/2024 Benign paroxysmal positional vertigo of left ear 09/28/2023 Cervical myelopathy with cervical radiculopathy 06/30/2022 Cervical spondylosis with myelopathy 06/09/2022 Overview (06/09/2022): Added automatically from request for surgery [id number] Carotid stenosis, right 01/07/2022 Overview (01/07/2022): Added automatically from request for surgery [id number] Assessment & Plan (10/12/2024 9:34 AM CDT): Continues to do well status post right TKR. Asymptomatic moderate left ICA stenosis. Will have patient follow-up in 1 year with repeat bilateral carotid artery duplex. Assessment & Plan (04/19/2023 1:00 PM CARRY ALL DRIVER): Status post TCAR. Stent patent. Continue anti-platelet therapy follow-up 6 months. Assessment & Plan (03/12/2022 5:16 PM CARRY ALL DRIVER): Impression: Patient is status post right TCAR. [...] (02/05/2020): Added automatically from request for surgery [id number] Hx of colonic polyps 10/10/2019 Overview (10/10/2019): Added automatically from request for surgery [id number] History of colon polyps 07/10/2019 Overview (07/10/2019): Added automatically from request for surgery [id number] Hypertension associated with diabetes 06/29/2019 Assessment & Plan (06/08/2024 2:36 PM CARRY ALL DRIVER): Chronic problem, Controlled on metoprolol, Entresto, HCTZ, bumetanide, hydralazine, amlodipine. No changes. Assessment & Plan (04/19/2023 1:00 PM CARRY ALL DRIVER): Hypertension chronic controlled. Continue current medical management [...] actual BMI) Coronary artery disease invo lving [place] coronary artery of [place] heart without angina pectoris 05/06/2015 Overview (08/07/2016): Coronary artery disease involving [place] coronary artery of [place] heart without angina pectoris Assessment & Plan (01/07/2022 3:00 PM CDT): Stable. Continue medical therapy. Mixed diabetic hyperlipidemi a associated with type 2 diabetes mellitus ([facility]) 05/06/2015 Overview (08/07/2016): Type 2 diabetes mellitus with complication Assessment & Plan (06/08/2024 2:36 PM CARRY ALL DRIVER): Chronic problem. On statin therapy, no changes. Assessment & Plan (04/19/2023 1:00 PM CARRY ALL DRIVER): Hyperlipidemia chronic and controlled. Continue current medical [...] complication Assessment & Plan (06/08/2024 2:37 PM CARRY ALL DRIVER): Chronic problem, improving but not at goal. [...] week so we can look at his [employer] data and advise on changes to his [...] Encounters Date Type Department Care Team Description 03/12/2025 Orders Only [facility] ([facility]) - [facility] Medicine Urology [address] 11th [place] [address] [place] [address] Stephie Trujillo MD UTI symptoms (Primary Dx) 02/21/2025 9:00 AM CDT Therapy [facility] Occupational Therapy [id number] [place] [address] 1st [address] [place] [address] Beatrice Pickett OT Arthritis of carpometacarpal (CMC) joint of right thumb (Primary Dx); CMC arthritis 02/21/2025 8:50 AM CDT Office Visit [facility] Medicine Orthopaedic Surgery [address] 2nd [address] [place] [address] Rafa Sprague MD CMC arthritis (Primary Dx) 02/21/2025 Plan of Care Documentation [facility] Medicine Occupational Therapy [address] 1st Floor [address] [place] [address] 02/16/2025 Orders Only [facility] [address] [place] [address] Nelson Ponce MD 02/05/2025 2:15 PM CDT Office Visit [facility] [address], [place] [address] Joseph Brush MD Type 2 diabetes mellitus with stage 3 chronic kidney disease, with long-term current use of insulin, unspecified whether stage 3a or 3b CKD (HCC) (Primary Dx); Obesity, class 3 (E66.813); Body mass index [BMI] 40.0-44.9, adult (Z68.41) 01/29/2025 Orders Only [facility]) - [facility] Medicine Urology [address] [place] [address] [facility] 11th [place] [address] [place] [address] Stephie Trujillo MD Urinary frequency (Primary Dx) 01/09/2025 2:00 PM CDT Office Visit [facility] Medicine Surgery [address] [place] [address] [address] [place] [address] Malick Santos MD Nonrheumatic aortic valve stenosis (Primary Dx) 12/22/2024 2:09 PM CDT - 12/22/2024 11:59 PM CDT Hospital Encounter [address] [address] Urinary frequency Discharge Disposition: Discharge to home or self care 12/22/2024 11:40 AM CDT Office Visit [facility]) - [facility] Medicine Urology [address] [place] [address] [address] [place] [address] Stephie Trujillo MD Urinary frequency (Primary Dx) 12/14/2024 Orders Only [facility] Medicine Pathology Outreach [address] [place] [address] Stephie Trujillo MD Malignant neoplasm of urinary bladder, unspecified site (HCC) 12/12/2024 Orders Only [facility] Medicine ([facility]) - [facility] Medicine Urology [address] [facility] 11th [place] [address] [place] [address] Stephie Trujillo MD Malignant neoplasm of urinary [...] eye blindness CHF (congestive heart failur e) ([facility]) Pneumonia 10/21/2021 hospitalized at [facility] with PNA, JUANITA and CHF Cancer (HCC) [...] on file Legal Sex Male 1:58 AM CARRY ALL DRIVER Gender Identity Not on file Sexual Orientation Not on file Last Filed Vital Signs Vital Sign Reading Time Taken Comments Blood Pressure 118/70 02/05/2025 2:21 PM CDT Pulse 72 02/05/2025 2:21 PM CDT Temperature 36.7 C (98 F) 04/17/2024 7:04 AM CARRY ALL DRIVER Respiratory Rate 20 02/05/2025 2:21 PM CDT [...] history exists Fall Risk Assessment 04/17/2025 04/17/2024 Albumin Creatinine Ratio, Urine 06/08/2025 Lipid Panel 06/08/2025 06/08/2024, 06/03, 06/30/2022, Additional history exists Hemoglobin A1C 08/06/2025 02/05/2025, 02/0 10/2024, 09/22/2023, Additional history exists eGFR 02/14/2026 02/14/2025, 01/31, 05/31/2024, Additional history exists Colon Cancer Screening-CT Colonography [...] Chronic Care Management No change(04/14 11:08 AM CARRY ALL DRIVER) No Pool Frey RN Note: Problem: Chronic Pain Goals: 1. Minimize further functional decline 2. Maximize quality of life 3. Control pain Strategies: - Activity/exercise program recommendation - Conservative stepwise pain medicine strategy with multi-disciplinary approach - Recommend healthy lifestyle strategies and compensatory methods as needed Medical Devices Implanted Type Area Graphics Intern Device Identifier Shelf Expiration Date Model / Serial / Lot Total Knee Left: Knee Medtronic Inc Resolute [place]wn 3mm 2.1-2.7fr 12mm 140cm Rapid Exchange Radiopaque [id number] - [id number] Implanted:Qty: 1 on 09/03/2021 by Bindu Goins MD at [facility] [employer] Inc 06/11/2024 [id number] / / Medtronic Inc Resolute Ian 3.5mm 2.1-2.7fr 15mm 140cm Rapid Exchange [id number] - [id number] Implanted:Qty: 1 on 09/03/2021 by Bindu Goins MD at [facility] [employer] Inc 04/04/2024 [id number] / / Angio-Seal Vip 6fr Closere Device [id number] - [id number] Implanted:Qty: 1 on 09/03/2021 by Bindu Goins MD at [facility] 06/02/2022 [id number] / / [employer] [facility] Enroute Uber Flex 8mm .065in 40mm 57cm Delivery System Angle Tip [id number]-[id number] - [id number] Implanted:Qty: 1 on 01/29/2022 by Neeraj La MD at [facility] Right: Carotid [employer] Inc 08/30/2024 SR-0840- CS / / [id number] Matilde [employer] Inc 4.5mm 16mm Fix Screw Bone [id number] - [id number] Implanted:Qty: 3 on 06/30/2022 by Fredy Nguyen MD at [facility] N/A: Spine Cervical MATILDE [employer] SP[employer] INC [id number] 6 / / Musculoskeletal Transplant 12.2j70o1ag Frozen Spine 7d Lordotic Trapezoid Spacer Allograft 869663 - [id number] - [id number] Implanted:Qty: 1 on 06/30/2022 by Fredy Nguyen MD at [facility] N/A: Spine Cervical Musculoskeletal Transplant [id number] 03/25/2025 [id number] / [id number] / Musculoskeletal Transplant 12.5d15h8vk Frozen Spine 7d Lordotic Trapezoid Spacer Allograft 378291 - [id number] - [id number] Implanted:Qty: 1 on 06/30/2022 by Fredy Nguyen MD at [facility] N/A: Spine Cervical Musculoskeletal Transplant [id number] 01/03/2025 [id number] / [id number] / Musculoskeletal Transplant 12.7m60c9wu Frozen Spine 7d Lordotic Trapezoid Spacer Allograft 773219 - [id number] - [id number] Implanted:Qty: 1 on 06/30/2022 by Fredy Nguyen MD at [facility] N/A: Spine Cervical Musculoskeletal Transplant [id number] 04/26/2026 [id number] / [id number] / [employer] C-Ervin Maxan 51mm Level 3 Fix Spine Cervical Anterior Plate Bone [id number] - [id number] Implanted:Qty: 1 on 06/30/2022 by Fredy Nguyen MD at [facility] N/A: Spine Cervical [employer] [id number] 1 / / Matilde [employer] Inc 4mm 16mm Fix Screw Bone [id number] - [id number] Implanted:Qty: 5 on 06/30/2022 by Fredy Nguyen MD at [facility] N/A: Spine Cervical [employer]ILDE [employer] SP[employer] [id number] / / Access Closure Inc Device 10ml 5fr Closure Mynx Control 2 Mode Balloon Catheter [id number] - [id number] Implanted:Qty: 1 on 03/27/2024 by Nabil Jacobs MD at [facility] [employer] Inc 01/18/2026 [id number] / / [id number] Medtronic [facility] Vasc Surgery 4.0 X 18mm Woodlawn Davis Rx Coronary Stent [id number] - [id number] Implanted:Qty: 1 on 04/17/2024 [facility] 12/26/2026 [id number] / / [id number] Access Closure Inc Mynx Control 6-7fr 2 Mode Balloon Catheter Sealant Lock Syringe [id number] - [id number] Implanted:Qty: 1 on 04/17/2024 by Nabil Jacobs MD at [facility] Access [employer] Inc 01/05/2026 [id number] / / [id number] Procedures Procedure Name Priority Date/Time Associated Diagnosis Comments RI ARTHROCENTESIS ASPIR&/INJ SMALL JT/BURSA W/O US Routine 02/21/2025 8:50 AM CDT CMC arthritis HM CREATININE Routine 02/14/2025 7:16 AM CDT EGFR Routine 02/14/2025 7:15 AM CDT VITAMIN D 25 HYDROXY Routine 02/14/2025 7:15 AM CDT POCT HEMOGLOBIN A1C Routine 02/05/2025 2 :21 [...] CREATININE RATIO, URINE Routine 06/08/2024 1:18 PM CARRY ALL DRIVER Type 2 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 disease, with long-term current use of insulin (HCC) POCT LIPID PANEL Routine 06/08/2024 1:18 AM CARRY ALL DRIVER Type 2 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 disease, with long-term current use of insulin (HCC) COLONOSCOPY REPORT 05/18/2014 from Last 3 Months or Most Recently Relevant to Health Maintenance Results * RI ARTHROCENTESIS ASPIR&/INJ SMALL JT/BURSA W/O US (02/21/2025 8:50 AM CDT) Narrative Rafa Sprague MD - 02/21/2025 8:50 AM CDT Rafa Sprague MD 02/21/2025 8:40 AM Small Joint Injection: R thumb CMC Performed by: Rafa Sprague MD Authorized by: Rafa Sprague MD Procedure Details: Location: Thumb Site: R thumb CMC Medications: 1 mL lidocaine 10 mg/mL (1 %); 40 mg triamcinolone 40 mg/mL Procedure: Thumb CMC Corticosteroid Injection The nature of and the indications for a corticosteroid and / or local anaesthetic injection were reviewed in detail with the patient today. The inherent risks of injection including infection, allergic reaction, increased pain, incomplete relief or temporary relief of symptoms, alterations of blood glucose levels requiring careful monitoring and treatment as indicated, tendon, ligament or articular cartilage rupture or degeneration, were discussed. The patient elected to proceed with the injection. The injection was performed under sterile conditions after informed consent was obtained from the patient and the correct injection site was confirmed with the patient. The right thumb CMC joint was injected with with 1.5 cc of a 1:1 solution of Kenalog and 1% Xylocaine without epinepherine. A sterile band-aide was applied. The patient tolerated the injection well and was discharged without complication. Post-injection protocol for activity modification, anti-inflammatory measures, and follow-up was reviewed with the patient. Rafa Sprague MD IN CLINIC/BEDSIDE ORDERABL ES Final Result * (ABNORMAL) HM CREATININE (02/14/2025 7:16 AM CDT) SCRIBED Creatinine 2.46(A) 0.80 - 1.30 mg/dL EXTERNAL LAB SCRIBED eGFR 25 >60 mL/min/1.7 3 m2 EXTERNAL LAB Blood 02/14/2025 7:16 AM CDT Result [facility] Ros[facility] Edited Result - Final Performing Organization Address [facility] Co de Phone Number EXTERNAL LAB * (ABNORMAL) EGFR (02/14/2025 7:15 AM CDT) SCRIBED eGFR 25 >60 mL/min/1.73 m2 EXTERNAL LAB Blood 02/14/2025 7:15 AM CDT Result [facility] Rosario [facility] MAINTENANCE Edited Result - Final Performing Organization Address [facility] Co de Phone Number EXTERNAL LAB * Vitamin D 25 hydroxy (02/14/2025 7:15 AM CDT) SCRIBED 25-OH Vitamin D 47.2 >100 - NA ng/mL EXTERNAL LAB Blood 02/14/2025 7:15 AM CDT Result [facility] Rosario [facility] BLOOD ORDERABLES Edit ed Result - Final Performing Organization Address [facility]/ZIP Co de Phone Number EXTERNAL LAB * (ABNORMAL) POCT hemoglobin A1c (02/05/2025 2:21 PM CDT) Hemoglobin A1C, POC 7.7(A) 4.0 - 5.6 % Blood 02/05/2025 2:21 PM CDT Joseph Brush MD POINT OF CARE TEST ORDERABLES Fi nal Result * (ABNORMAL) POCT glucose (02/05/2025 2:21 PM CDT) Pathologist [facility] Glucose Blood, POC 249 Normal Fasting 70 - 100, Random <200 mg/dL Blood 02/05/2025 2:21 PM CDT us Joseph Brush MD POINT OF CARE TEST ORDERABLES Fi nal Result * Urine culture Urine, clean voided (12/22/2024 2:09 PM CDT) Report Final Report: Less than 100,000 colonies/mL (clinically insignificant growth based on current clinical standards) Comment:Testing performed by : [facility] [address] [facility] [place]., [address] Organism (CLINICALLY INSIGNIFICANT GROWTH JOSE MIGUEL Urine, clean voided 12/22/2024 2:09 PM CDT 12/23/2024 12:21 AM CDT Narrative JOSE MIGUEL - 12/24/2024 6:15 AM CDT Testing performed by [facility] ([phone]) us Stephie Trujillo MD LAB MICROBIOLOGY - GENERAL ORDER MIKE Final Result [facility] [address] Department [place] [address] * Surgical pathology (12/14/2024 9:11 AM CDT) Tissue (Miscellaneous) 12/14/2024 9:11 AM CDT 12/14/2024 9:11 AM CDT Narrative [facility] PATHOLOGY LAB - 12/15/2024 1:32 PM CDT EPIC results best viewed via link to PDF [facility] Pathology Consult Service [address], [address], [place] [address] Note to Patients: This report [...] SURGICAL PATHOLOGY REPORT * Consult Report * [facility] is providing an additional review of previously collected tissue. FINAL Patient Name: TAMIKA AGUILAR Address: [address] [place] [address], [place] [address] Gender: M : 1945 (Age: 79) Hospital #: [id number] Patient Type: GOLDIE Location: UNKNOWN Taken: 12/14/2024 Received: 12/14/2024 Accessioned: 12/14/2024 Reported: 12/15/2024 Physician(s): Stephie Trujillo M.D. [facility] Department of Pathology [address] [place] [address] P: [phone] F: [phone] Diagnosis: Consult material received from [place], [place] (OSC: [id number]; 11/14/2024) A. Bladder, right lateral wall, biopsy - Papillary urothelial carcinoma, low grade - No invasion identified - Muscularis propria not present B. Bladder, floor, biopsy - Papillary urothelial carcinoma, low grade - No invasion identified - Muscularis propria not present gu/12/14/2024 18:11 By this signature, I attest that [...] microscopic examination of each tissue sample. Eliud Gomide Harris, M.D. History: The patient is an 79-year-old man with history of a bladder lesion. Materials Received: Received for review are three slides labeled [id number], accompanied by a corresponding pathology report. The material originates from [place], [place]. Selected slide(s) may be digitally scanned for our files, and all materials are returned to the referring institution, along with a copy of our final report. Any testing required for diagnostic purposes was performed in the Department of Pathology and Immunology at [facility], [address] [place] [address] CLIA # [id number] The performance characteristics of the testing cited in this report (if any) were determined by the [facility] Department of Pathology and Immunology [facility], as part of an ongoing quality control engineering technician program and in compliance with federally mandated [...] and the performance characteristics determined by the [facility], [facility] Department of Pathology and Immunology. It has not been cleared or approved by the U.S. Food and Drug Administration. Any test designated as LDT was developed and its performance characteristics determined by [facility]. It has not been cleared or approved by the FDA. This test is used for clinical purposes and should not be regarded as investigational or for research. Report images and/or scanned reports, if included, only viewable in PDF version of report. us Stephie Trujillo MD LAB PATHOLOGY ORDERABLES Final R esult [facility] PATHOLOGY LAB [address] [address] * (ABNORMAL) Albumin Creatinine Ratio, Urine (06/08/2024 1:18 PM CARRY ALL DRIVER) Albumin Ur 68.0 mg/L Comment: Interpretive Data No reference range established. Current interpretive data was last revised 2018. Creatinine Ur 32.5 mg/dL [facility] Comment: Interpretive Data No reference range established. Current interpretive data was last revised 2018. Albumin Creatinine Ratio, Ur 209(H) 1 - 29 mg/g JOSE MIGUEL BOWERS Urine 06/08/2024 1:18 PM CARRY ALL DRIVER 06/08/2024 7:31 PM CARRY ALL DRIVER Terra CRUZ LAB URINE ORDERABLES Fi nal Result [facility] [address] [address] Department [place] [address] * (ABNORMAL) POCT lipid panel (06/08/2024 1:18 AM CARRY ALL DRIVER) Cholesterol, POC 154 mg/dL HDL, POC 25 mg/dL Triglycerides, POC 271 mg/dL LDL Cholesterol POC 75 mg/dL Chol/HDL Ratio, POC 6.2 Non-HDL Cholesterol, POC 129 mg/dL Cholesterol Total, POC 154 mg/dL Capillary blood 06/08/2024 1 :18 AM CARRY ALL DRIVER Terra CRUZ POINT OF CARE TEST ORDE RABLES Final Result * COLONOSCOPY REPORT (05/18/2014) Anatomical Region Laterality Modality Other Narrative 05/18/2014 Ordered by an unspecified provider. Historical Provider GI PROCEDURE ORDERABLES F inal Result from Last 3 Months or Most Recently Relevant to Health Maintenance Insurance [employer] CHOICE MEDICARE PPO HU[employer] CHOICE MEDICARE PPO HU[employer] CHOICE MEDICARE PPO HU[employer] CHOICE MEDICARE PPO Advance Directives For more information, please contact: [phone] * Full Code (Latest Code Status on File) Date Activated Date Inactivated Comments 06/30/2022 6:44 PM 07/03/2022 5:32 PM * Full Code Date Activated Date Inactivated Comments 06/30/2022 6:39 PM 06/30/2022 6:44 PM * Full Code Date Activated Date Inactivated Comments 01/29/2022 2:14 PM 01/30/2022 6:06 PM * Full Code Date Activated Date Inactivated Comments 09/03/2021 12:10 PM 09/04/2021 7:37 PM Care Teams Open Winder Relationship Specialty Start Date End Date Rafa Chavez DO PCP - General Internal Medicine 10/04/24 Ramón Morales MD [address] [place] [address] Consulting Physician Urology 10/04/24 Yfn Gill MD [address] [facility] [address] [place] [address] Referring Physician Nephrology 10/04/24 Nabil Jacobs MD [address] [facility] [address] [place] [address] Consulting Physician Cardiology 10/04/24
--- OUTSIDE RECORDS SUMMARY | 2025-03-12 11:18 | XMS_ITS | Encounter Summary ---
Author Organization [facility] Address [address] [facility] [address] [place] [address] Phone Care Team Providers Care Waste Management Specialist Name Role Phone Rafa Chavez DO Primary Care Provider [phone] Ramón Morales MD Unavailable [phone] Yfn Gill MD Unavailable [phone] Nabil Jacobs MD Unavailable Encounter Details Date Type Department Care Team (Late st Contact Info) Description 03/12/2025 Orders Only [facility] ([facility]) - [facility] Medicine Urology [address] [facility] [address]th [place] [address] [place] [id number] Stephie Trujillo MD [address] [facility] [place] [address] UTI symptoms (Primary Dx) Social History Tobacco Use Types Packs/Day Years [...] on file Legal Sex Male 1:58 AM 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 Author CCM Chronic Pain Care Plan Chronic Care Management No change(04/14 11:08 AM UNDERWRITING [employer]ERKS SUPERVISOR) Pool Welch RN Note: Problem: Chronic Pain Goals: 1. Minimize further functional decline 2. Maximize quality of life 3. Control pain Strategies: - Activity/exercise program recommendation - Conservative stepwise pain medicine strategy with multi-disciplinary approach - Recommend healthy lifestyle strategies and compensatory methods as needed documented as of this encounter Visit Diagnoses Diagnosis UTI symptoms- Primary documented in this encounter Care Teams Waste Management Specialist Relationship Specialty Start Date End Date Rafa Chavez DO PCP - General Internal Medicine 10/04/24 Ramón Morales MD [address] [place] [address] Consulting Physician Urology 10/04/24 Yfn Gill MD [address] [place] [address] [address] [place] [address] Referring Physician Nephrology 10/04/24 Nabil Jacobs MD [address] [place] [address] [address] [place] [address] Consulting Physician Cardiology 10/04/24 documented as of this encounter
--- OUTSIDE RECORDS SUMMARY | 2025-03-12 11:18 | XMS_ITS | Clinical Summary ---
Author Organization [facility] Address [address] [place] [id number] Phone Care Team Providers Care Director Cost Name Role Phone Arnel Gonzalez DO Primary Care Provider [phone] Allergies Active Allergy Reactions Criticality Noted Date [...] 300 MG tablet 04/14/2020 Active Droplet Pen [place] 31G X 5 MM misc 07/28/2020 Active [...] 12/22/2021 Active ergocalciferol (VITAMIN D2) 1.25 MG (96395 UT) capsule TAKE ONE CAPSULE BY MOUTH [...] diabetes mellitus with complication Coronary arteriosclerosis in [place] artery 01/29 Overview (03/06/2019): CAD (coronary artery disease) Coronary artery disease involving [place] coronary artery of [place] heart without angina pectoris Coronary atherosclerosis 01/29/2015 Overview (08/30/2020): CAD (coronary artery disease) Coronary artery disease involving [place] coronary artery of [place] heart without angina pectoris H/O: artificial heart [...] exists Insurance MEDICARE ADVANTAGE Care Teams Director Cost Relationship Specialty Start Date End Date Arnel Gonzalez DO [address] [facility] [address] [place] [address] PCP - General Internal Medicine 01/31/19
== END 2025-03-12 10:29 | disposition home or self-care (01) ==
LOC: ANHLAB 10:30
PROVIDERS: PCP Internal Medicine; Visit Provider Urology
DX: R39.9 Unspecified symptoms and signs involving the genitourinary system (principal)
CPT/HCPCS: 87086; 87186

== ENCOUNTER 2025-04-09 14:50 | Outpatient (CLI) | payer MEDICARE, SELFPAY | END 2025-04-09 14:51 | disposition home or self-care (01) | PROVIDERS: PCP Internal Medicine; Visit Provider Urology | DX: R39.9 Unspecified symptoms and signs involving the genitourinary system (principal) | CPT/HCPCS: 87086 ==